=== PATIENT | male | born 1955 | race Caucasian/White ===

== ENCOUNTER 2018-10-01 16:30 | Inpatient (IN) | payer OTHER ==
[2018-10-01 18:17] LABS: Absolute Lymphocytes (CBC) 2.3 K/uL (0.7-4.9); Absolute Monocytes 0.8 K/uL (0.1-1.3); Absolute Neutrophil 6.7 K/uL (1.8-8.0); Basophils % 0.7 % (0-1.3); Eosinophils % 2.2 % (0-4.4); Hematocrit 53.3 % (39.6-49.0); Lymphocytes % 23.1 % (15.3-44.8); MPV 8.9 fL (7.6-11.3); Monocytes % 7.5 % (3.3-12.3); RBC Red Blood Cell Count 5.61 M/uL (4.33-5.43)
--- NOTE | 2018-10-01 18:47 | RAD REPORT ---
EXAM DESCRIPTION: RAD - Chest Single View - 10/01/2018 6:18 pm CLINICAL HISTORY: CHEST PAIN Chest pain. COMPARISON: Chest Pa And Lat (2 Views) dated 08/03/2017; Chest Pa And Lat (2 Views) dated 10/23/2016; Chest Pa And Lat (2 Views) dated 09/16/2016; Chest Single View dated 08/31/2016 FINDINGS: Portable technique limits examination quality. The lungs are grossly clear. The heart is normal in size. No displaced fractures. IMPRESSION: No acute intrathoracic process suspected.
[2018-10-01 18:48] LABS: Albumin 3.4 g/dL (3.4-5.0); Bilirubin Direct 0.2 mg/dL (0-0.2); Bilirubin Total 0.4 mg/dL (0.2-1.0); Potassium 3.8 mmol/L (3.5-5.1); Protein, Total 7.5 g/dL (6.4-8.2)
[2018-10-01 18:51] LABS: Troponin (Emerg Dept Use Only) 1.11 ng/mL (0.0-0.045)
[2018-10-01] MEDS ORDERED: ASPIRIN 81 MG CHEWABLE TABLET ONE (19:21)
[2018-10-01] MEDS ORDERED: NITROGLYCERIN 0.4 MG/TAB SL ONE (19:22)
[2018-10-01] MEDS ORDERED: ENOXAPARIN 60 MG/0.6 ML SQ ONE (19:36)
[2018-10-01] MEDS ORDERED: ENOXAPARIN 100 MG/ML SYR SQ ONE (19:36)
[2018-10-01] MEDS ORDERED: METOPROLOL TARTRATE 5 MG/5 ML INJ IV ONE (19:37)
--- NOTE | 2018-10-01 19:58 | ER ---
Nurse's Notes [facility] Name: Larry Seth Jr Age: 63 yrs Sex: Male : 1955 Arrival Date: 10/01/2018 Time: 16:32 Bed 25 Private MD: Misael Charlton B Diagnosis: Non-ST elevation (NSTEMI) myocardial infarction Presentation: 10/01 16:40 Presenting complaint: Patient states: my BP is getting high, today, it is 182/103; now, hj my chest started hurting yesterday and today its worse today; pain radiates to the L arm; reports SOB; denies N/V;. Transition of care: patient was not received from another setting of care. Onset of symptoms was October 01, 2018. Risk Assessment: Do you want to hurt yourself or someone else? Patient reports no desire to harm self or others. Initial Sepsis Screen: Does the patient meet any 2 criteria? No. Patient's initial sepsis screen is negative. Does the patient have a suspected source of infection? No. Patient's initial sepsis screen is negative. Care prior to arrival: None. 16:40 Method Of Arrival: Ambulatory 16:40 Acuity: JUAN CARLOS 3 hj Triage Assessment: 16:46 General: Appears in no apparent distress. uncomfortable, Behavior is calm, cooperative, hj appropriate for age. Pain: Complains of pain in chest Pain radiates to left arm. Cardiovascular: Capillary refill < 3 seconds Patient's skin is warm and dry. Historical: - Allergies: 16:46 Aleve; hj 16:46 Ceftin; hj 16:46 Codeine; hj 16:46 HYDROCODONE; 16:46 Tramadol HCl; hj - Home Meds: 16:46 Novolin R Sub-Q daily [Active]; Tresiba FlexTouch U-100 100 unit/mL (3 mL) subcutaneous hj inpn [Active]; amlodipine 5 mg tab 1 tab once daily [Active]; duloxetine 60 mg oral cpDR 1 cap once daily [Active]; Bystolic 10 mg oral tab 1 tab twice a day [Active]; furosemide 20 mg Oral tab 1 tab T//S [Active]; Vascepa 1 gram oral cap 2 caps 2 times per day [Active]; aspirin 81 mg Oral TbEC 1 tab once daily [Active]; vitamin T54-chdie acid 500-400 mcg oral tab [Active]; amitriptyline 25 mg Oral tab 1 tab once daily [Active]; montelukast 10 mg oral tab 1 tab once daily [Active]; isosorbide mononitrate 30 mg Oral Tb24 1 tab once daily [Active]; - PMHx: 16:46 Chronic pain; COPD; Diabetes - IDDM; GERD; Hypertension; restless leg syndrome; hj - PSHx: 16:46 BACK SURG; Cholecystectomy; Hernia repair; hj - Immunization history:: Adult Immunizations up to date. - Social history:: Smoking status: Patient/guardian denies using tobacco, Patient/guardian denies using alcohol. - Ebola Screening: : Patient negative for fever greater than or equal to 101.5 degrees Fahrenheit, and additional compatible Ebola Virus Disease symptoms Patient denies exposure to infectious person Patient denies travel to an Ebola-affected area in the 21 days before illness onset. Screenin:47 Abuse screen: Denies threats or abuse. Denies injuries from another. Nutritional hj screening: No deficits noted. Tuberculosis screening: No symptoms or risk factors identified. Fall Risk None identified. Assessment: 16:47 Pain: Pain began 1 day ago. hj 17:49 General: Appears in no apparent distress. Behavior is calm, cooperative, appropriate tw2 for age. Pain: Complains of pain in chest. Pain: Complains of pain in chest Pain radiates to left arm. Neuro: Level of Consciousness is awake, alert, obeys commands, Oriented to person, place, time, situation. Cardiovascular: Edema is 2+ to right forearm, right wrist, right hand, left midcalf, left ankle, left forearm, left wrist, left hand, right midcalf and right ankle. Cardiovascular: Reports chest pain, Heart tones S1 S2 Patient's skin is warm and dry. Respiratory: Airway is patent Respiratory effort is even, unlabored, Respiratory pattern is regular, symmetrical, Breath sounds are clear bilaterally. GI: Abdomen is round non-distended, obese, Bowel sounds present X 4 quads. : No signs and/or symptoms were reported regarding the genitourinary system. EENT: No signs and/or symptoms were reported regarding the EENT system. Derm: No signs and/or symptoms reported regarding the dermatologic system. Musculoskeletal: Range of motion: intact in all extremities. 18:34 Reassessment: Patient appears in no apparent distress at this time. No changes from tw2 previously documented assessment. Patient and/or family updated on plan of care and expected duration. Pain level reassessed. Patient is alert, oriented x 3, equal unlabored respirations, skin warm/dry/pink. 19:06 General: Appears in no apparent distress. Behavior is calm, cooperative, appropriate ea for age. Pain: Complains of pain in left arm and chest. Neuro: Level of Consciousness is awake, alert, obeys commands, Oriented to person, place, time, situation. Cardiovascular: Heart tones S1 S2 Patient's skin is warm and dry. Edema. Respiratory: Airway is patent Respiratory effort is even, unlabored, Respiratory pattern is regular, symmetrical, Breath sounds are clear bilaterally. GI: Abdomen is obese, Bowel sounds present X 4 quads. Derm: Skin is pink, warm \T\ dry. Musculoskeletal: Circulation, motion, and sensation intact. 20:33 Reassessment: Patient and/or family updated on plan of care and expected duration. Pain ea level reassessed. Patient is alert, oriented x 3, equal unlabored respirations, skin warm/dry/pink. Awaiting on physician orders and room assignment Patient denies pain at this time. 21:31 Reassessment: Patient and/or family updated on plan of care and expected duration. Pain ea level reassessed. Patient is alert, oriented x 3, equal unlabored respirations, skin warm/dry/pink. Report called to receiving nurse on fourth. Vital Signs: 16:47 BP 178 / 91; Pulse 70; Resp 18; Temp 98.4(O); Pulse Ox 99% on R/A; Weight 155.58 kg; hj Height 6 ft. 3 in. (190.50 cm); Pain 6/10; 17:49 BP 175 / 101; Pulse 78; Resp 22; Pulse Ox 100% on R/A; tw2 18:42 BP 177 / 91; Pulse 70; Resp 17; Pulse Ox 99% on R/A; tw2 19:00 BP 179 / 107; Pulse 68; Resp 19; Pulse Ox 99% on R/A; ea 19:30 BP 178 / 87; Pulse 69; Resp 18; Pulse Ox 98% on R/A; ea 19:41 BP 173 / 100; Pulse 62; Resp 18; Pulse Ox 98% on R/A; ea 20:01 Pain 0/10; ea 20:15 BP 160 / 88; Pulse 63; Resp 18; Pulse Ox 98% on R/A; ea 21:00 BP 170 / 90; Pulse 60; Resp 18; Pulse Ox 98% on R/A; ea 16:47 Body Mass Index 42.87 (155.58 kg, 190.50 cm) hj ED Course: 16:32 Patient arrived in ED. rg4 16:32 Misael Charlton MD is Private Physician. rg4 16:42 Triage completed. hj 16:47 Arm band placed on right wrist. hj 16:47 Patient has correct armband on for positive identification. Placed in gown. Bed in low hj position. Call light in reach. Side rails up X 1. Adult w/ patient. residential recycle driver on. Pulse ox on. NIBP on. 16:47 Patient maintains SpO2 saturation greater than 95% on room air. hj 16:48 EKG done, by charge histotechnologist. reviewed by Jose Nogueira MD. sm3 17:31 Roshan Mehta NP is PHCP. pm1 17:31 Jose Nogueira MD is Attending Physician. pm1 17:48 Caroline Fairchild RN is Primary Nurse. tw2 17:48 Missed attempt(s): 20 gauge in right antecubital area. Bleeding controlled, band aid tw2 applied, catheter tip intact. 18:16 XRAY Chest (1 view) In Process Unspecified. EDMS 18:58 Report given to CARI Michael. tw2 18:59 Primary Nurse role handed off by Caroline Fairchild RN tw2 19:05 Fernanda Mattson RN is Primary Nurse. ea 19:56 Rosalba Calderon MD is Hospitalizing Provider. pm1 21:13 No provider procedures requiring assistance completed. Patient admitted, IV remains in ea place. Administered Medications: 19:23 Drug: Nitroglycerin 0.4 mg Route: Sublingual; ea 19:23 Drug: Aspirin 325 mg Route: PO; ea 20:19 Follow up: Response: No adverse reaction ea 19:30 Drug: Nitroglycerin 0.4 mg Route: Sublingual; ea 20:19 Follow up: Response: No adverse reaction; Pain is decreased ea 19:46 Drug: Lovenox 1 mg/kg Route: Sub-Q; Site: right lower abdomen; ea 20:19 Follow up: Response: No adverse reaction ea 19:46 Drug: Lopressor 5 mg Route: IVP; Site: left antecubital; ea 20:01 Follow up: Pain 0/10 Adult; Response: No adverse reaction; Pain is decreased ea 20:28 Drug: Tylenol 500 mg Route: PO; ea 21:34 Follow up: Response: No adverse reaction; Pain is decreased ea Outcome: 19:56 Decision to Hospitalize by Provider. pm1 20:00 Instructed on the need for admit. ea 21:30 Admitted to Med/surg accompanied by tech, room 406, Report called to Receiving nurse ea on fourth floor 21:30 Condition: stable 21:35 Patient left the ED. ea Signatures: Dispatcher [employer] EDMS Ja Fischer RN RN Roshan Jensen, BUSINESS PLANNING MANAGER BUSINESS PLANNING MANAGER pm1 Caroline Fairchild RN RN tw2 Mignon Beckford rg4 Fernanda Mattson RN RN Kanchan Wynne sm3 Corrections: (The following items were deleted from the chart) 16:50 16:47 Pulse 70bpm; Resp 18bpm; Pulse Ox 99% RA; Temp 98.4F Oral; 155.58 kg; Height 6 hj ft. 3 in.; BMI: 42.8; Pain 6/10; hj
--- NOTE | 2018-10-01 19:58 | EDPHYS ---
Physician Documentation [facility] Name: Larry Seth Jr Age: 63 yrs Sex: Male : 1955 Arrival Date: 10/01/2018 Time: 16:32 Bed 25 Private MD: Misael Charlton B ED Physician Jose Nogueira HPI: 10/01 19:00 This 63 yrs old Male presents to ER via Ambulatory with complaints of Chest pm1 Pain, High Blood Pressure. 19:00 The patient or guardian reports chest pain that is located primarily in the mid-sternal pm1 area. Onset: yesterday, at 15:00. The pain radiates to the left arm. Associated signs and symptoms: Pertinent positives: shortness of breath, Pertinent negatives: abdominal pain, cough, diaphoresis, dizziness, headache, nausea, near syncope, palpitations, vomiting. The chest pain is described as a pressure. Duration: The patient or guardian reports a single episode, that is still ongoing. Modifying factors: The symptoms are alleviated by nothing. the symptoms are aggravated by emotionally stressful situations, of mother and aunt in the past two weeks. Severity of pain: in the emergency department the pain is a 7 / 10. The patient has not experienced similar symptoms in the past. The patient has been recently seen by a physician: Dr. Chou for HTN and chest pain. Chest relieved with aspirin when he went to see Effie. Blood pressure was elevated and was given prescription for Norvasc. has had recent blood pressure medication changes. On 08/24 Lasix dosage decreased by nephrology. Has had pedal edema since decreased Lasix dosage from daily to every other day. Historical: - Allergies: 16:46 Aleve; 16:46 Ceftin; 16:46 Codeine; hj 16:46 HYDROCODONE; hj 16:46 Tramadol HCl; hj - Home Meds: 16:46 Novolin R Sub-Q daily [Active]; Tresiba FlexTouch U-100 100 unit/mL (3 mL) subcutaneous hj inpn [Active]; amlodipine 5 mg tab 1 tab once daily [Active]; duloxetine 60 mg oral cpDR 1 cap once daily [Active]; Bystolic 10 mg oral tab 1 tab twice a day [Active]; furosemide 20 mg Oral tab 1 tab // [Active]; Vascepa 1 gram oral cap 2 caps 2 times per day [Active]; aspirin 81 mg Oral TbEC 1 tab once daily [Active]; vitamin J34-pjhfy acid 500-400 mcg oral tab [Active]; amitriptyline 25 mg Oral tab 1 tab once daily [Active]; montelukast 10 mg oral tab 1 tab once daily [Active]; isosorbide mononitrate 30 mg Oral Tb24 1 tab once daily [Active]; - PMHx: 16:46 Chronic pain; COPD; Diabetes - IDDM; GERD; Hypertension; restless leg syndrome; hj - PSHx: 16:46 BACK SURG; Cholecystectomy; Hernia repair; hj - Immunization history:: Adult Immunizations up to date. - Social history:: Smoking status: Patient/guardian denies using tobacco, Patient/guardian denies using alcohol. - Ebola Screening: : Patient negative for fever greater than or equal to 101.5 degrees Fahrenheit, and additional compatible Ebola Virus Disease symptoms Patient denies exposure to infectious person Patient denies travel to an Ebola-affected area in the 21 days before illness onset. ROS: 19:00 Constitutional: Negative for fever, chills, and weight loss, Eyes: Negative for injury, pm1 pain, redness, and discharge, ENT: Negative for injury, pain, and discharge, Neck: Negative for injury, pain, and swelling. 19:00 Abdomen/GI: Negative for abdominal pain, nausea, vomiting, diarrhea, and constipation, Back: Negative for injury and pain, : Negative for injury, bleeding, discharge, and swelling, MS/Extremity: Negative for injury and deformity, Skin: Negative for injury, rash, and discoloration, Neuro: Negative for headache, weakness, numbness, tingling, and seizure. 19:00 Cardiovascular: Positive for chest pain, edema, Negative for orthopnea, palpitations. 19:00 Respiratory: Positive for shortness of breath, Negative for cough, sputum production, wheezing. Exam: 19:00 Constitutional: This is a well developed, well nourished patient who is awake, alert, pm1 and in no acute distress. Head/Face: Normocephalic, atraumatic. Eyes: Pupils equal round and reactive to light, extra-ocular motions intact. Lids and lashes normal. Conjunctiva and sclera are non-icteric and not injected. Cornea within normal limits. Periorbital areas with no swelling, redness, or edema. ENT: Nares patent. No nasal discharge, no septal abnormalities noted. Tympanic membranes are normal and external auditory canals are clear. Oropharynx with no redness, swelling, or masses, exudates, or evidence of obstruction, uvula midline. Mucous membranes moist. Neck: Trachea midline, no thyromegaly or masses palpated, and no cervical lymphadenopathy. Supple, full range of motion without nuchal rigidity, or vertebral point tenderness. No Meningismus. Chest/axilla: Normal chest wall appearance and motion. Nontender with no deformity. No lesions are appreciated. 19:00 Respiratory: Lungs have equal breath sounds bilaterally, clear to auscultation and percussion. No rales, rhonchi or wheezes noted. No increased work of breathing, no retractions or nasal flaring. Abdomen/GI: Soft, non-tender, with normal bowel sounds. No distension or tympany. No guarding or rebound. No evidence of tenderness throughout. Back: No spinal tenderness. No costovertebral tenderness. Full range of motion. Skin: Warm, dry with normal turgor. Normal color with no rashes, no lesions, and no evidence of cellulitis. MS/ Extremity: Pulses equal, no cyanosis. Neurovascular intact. Full, normal range of motion. 19:00 Cardiovascular: Rate: normal, Rhythm: regular, Pulses: no pulse deficits are appreciated, Heart sounds: normal, Edema: pedal edema, that is mild, 1+. 19:00 NSR 75. No stemi 19:00 Neuro: Orientation: is normal, Motor: is normal, moves all fours, Sensation: is normal, no obvious gross deficits. Vital Signs: 16:47 BP 178 / 91; Pulse 70; Resp 18; Temp 98.4(O); Pulse Ox 99% on R/A; Weight 155.58 kg; hj Height 6 ft. 3 in. (190.50 cm); Pain 6/10; 17:49 BP 175 / 101; Pulse 78; Resp 22; Pulse Ox 100% on R/A; tw2 18:42 BP 177 / 91; Pulse 70; Resp 17; Pulse Ox 99% on R/A; tw2 19:00 BP 179 / 107; Pulse 68; Resp 19; Pulse Ox 99% on R/A; ea 19:30 BP 178 / 87; Pulse 69; Resp 18; Pulse Ox 98% on R/A; ea 19:41 BP 173 / 100; Pulse 62; Resp 18; Pulse Ox 98% on R/A; ea 20:01 Pain 0/10; ea 20:15 BP 160 / 88; Pulse 63; Resp 18; Pulse Ox 98% on R/A; ea 21:00 BP 170 / 90; Pulse 60; Resp 18; Pulse Ox 98% on R/A; ea 16:47 Body Mass Index 42.87 (155.58 kg, 190.50 cm) MDM: 17:38 Patient medically screened. pm1 17:50 Data reviewed: vital signs. Data interpreted: Pulse oximetry: on room air is 100 %. pm1 Interpretation: normal. 19:38 ED course: Chest pressure/pain 0/10 after 2nd dose of nitro. pm1 19:55 Physician consultation: Rosalba Calderon MD was called at 19:56, was contacted at 19:56, pm1 regarding admission, patient's condition, and will see patient. 10/01 17:51 Order name: Basic Metabolic Panel pm1 10/01 17:51 Order name: CBC with Diff; Complete Time: 18:45 pm1 10/01 17:51 Order name: LFT's; Complete Time: 18:52 pm1 10/01 17:51 Order name: Magnesium; Complete Time: 18:52 pm1 10/01 17:51 Order name: NT PRO-BNP; Complete Time: 18:52 pm1 10/01 17:51 Order name: PT-INR; Complete Time: 18:45 pm1 10/01 17:51 Order name: Troponin (emerg Dept Use Only); Complete Time: 18:52 pm1 10/01 17:51 Order name: Basic Metabolic Panel; Complete Time: 18:52 EDMS 10/01 20:40 Order name: Basic Metabolic Panel EDMS 10/01 20:40 Order name: Basic Metabolic Panel EDMS 10/01 20:40 Order name: CBC with Automated Diff EDMS 10/01 20:40 Order name: CBC with Automated Diff EDMS 10/01 20:40 Order name: Lipid Profile EDMS 10/01 20:40 Order name: Lipid Profile EDMS 10/01 16:40 Order name: EKG; Complete Time: 16:40 hj 10/01 17:51 Order name: XRAY Chest (1 view); Complete Time: 18:48 pm1 10/01 17:51 Order name: Cardiac monitoring; Complete Time: 18:10 pm1 10/01 17:51 Order name: EKG - Nurse/Tech; Complete Time: 18:10 pm1 10/01 17:51 Order name: IV Saline Lock; Complete Time: 18:10 pm1 10/01 20:40 Order name: CONS Physician Consult [facility] 10/01 20:40 Order name: Heart Healthy [facility] 10/01 20:40 Order name: Echo with Doppler [facility] 10/01 20:40 Order name: Troponin I [facility] 10/01 20:40 Order name: Troponin I [facility] 10/01 20:40 Order name: Troponin I [facility] 10/01 17:51 Order name: Labs collected and sent; Complete Time: 18:10 pm1 10/01 17:51 Order name: O2 Per Protocol; Complete Time: 18:10 pm1 10/01 17:51 Order name: O2 Sat Monitoring; Complete Time: 18:10 pm1 Administered Medications: 19:23 Drug: Nitroglycerin 0.4 mg Route: Sublingual; ea 19:23 Drug: Aspirin 325 mg Route: PO; ea 20:19 Follow up: Response: No adverse reaction ea 19:30 Drug: Nitroglycerin 0.4 mg Route: Sublingual; ea 20:19 Follow up: Response: No adverse reaction; Pain is decreased ea 19:46 Drug: Lovenox 1 mg/kg Route: Sub-Q; Site: right lower abdomen; ea 20:19 Follow up: Response: No adverse reaction ea 19:46 Drug: Lopressor 5 mg Route: IVP; Site: left antecubital; ea 20:01 Follow up: Pain 0/10 Adult; Response: No adverse reaction; Pain is decreased ea 20:28 Drug: Tylenol 500 mg Route: PO; ea 21:34 Follow up: Response: No adverse reaction; Pain is decreased ea Disposition: 10/01/18 19:56 Hospitalization ordered by Rosalba Calderon for Inpatient Admission. Preliminary diagnosis is Non-ST elevation (NSTEMI) myocardial infarction. - Bed requested for Telemetry/MedSurg (Inpatient). - Status is Inpatient Admission. ea - Condition is Stable. - Problem is new. - Symptoms have improved. UTI on Admission? No Signatures: Dispatcher [employer] EDMS Ja Fischer RN RN Eboni Beckford RN RN Roshan Mehta, EVELYNE ASSEMBLER [employer] pm1 Fernanda Mattson RN RN ea Corrections: (The following items were deleted from the chart) 20:52 19:56 Hospitalization Ordered by Rosalba Calderon MD for Inpatient Admission. Preliminary cg diagnosis is Non-ST elevation (NSTEMI) myocardial infarction. Bed requested for Telemetry/MedSurg (Inpatient). Status is Inpatient Admission. Condition is Stable. Problem is new. Symptoms have improved. UTI on Admission? No. pm1 21:35 20:52 10/01/2018 19:56 Hospitalization Ordered by Rosalba Calderon MD for Inpatient ea Admission. Preliminary diagnosis is Non-ST elevation (NSTEMI) myocardial infarction. Bed requested for Telemetry/MedSurg (Inpatient). Status is Inpatient Admission. Condition is Stable. Problem is new. Symptoms have improved. UTI on Admission? No. cg
[2018-10-01] MEDS ORDERED: ACETAMINOPHEN 500 MG TAB PO PRN (20:28)
[2018-10-01] MEDS ORDERED: ACETAMINOPHEN 500 MG TAB ONE (20:35)
[2018-10-01] MEDS ORDERED: ATORVASTATIN 20 MG TAB PO SCH (21:00)
[2018-10-01 21:58] LABS: HDL Cholesterol 23 mg/dL (40-60); LDL Cholesterol, Calculated ND (<130)
[2018-10-01] MEDS ORDERED: METOPROLOL TAR 50 MG TAB PO SCH (22:00)
[2018-10-01 22:13] LABS: LDL, Direct 88 mg/dL (100-129)
[2018-10-01] MEDS ORDERED: GLUCAGON 1 MG/VIAL IM PRN (22:27)
[2018-10-01] MEDS ORDERED: D50W 25 GM/50 ML SYRINGE IV PRN (22:27)
[2018-10-01] MEDS ORDERED: INSULIN -REGULAR HUMAN 50 UNIT/0.5 ML ML SQ SCH (22:29)
[2018-10-02] MEDS ORDERED: NITROGLYCERIN 0.2 MG/HR (5 MG) PATCH TD SCH (02:00)
[2018-10-02 02:07] VITALS: BMI 42.8
[2018-10-02] MEDS ORDERED: GLUCAGON 1 MG/VIAL IM PRN ×2 (02:20→12:32)
[2018-10-02] MEDS ORDERED: D50W 25 GM/50 ML SYRINGE IV PRN ×2 (02:20→12:32)
[2018-10-02] MEDS ORDERED: NITROGLYCERIN 1 GM PKT TD ONE ×2 (02:36→02:37)
[2018-10-02] MEDS ORDERED: METOPROLOL TAR 25 MG TAB PO ONE (02:37)
[2018-10-02] MEDS ORDERED: NA CHLORIDE 0.9% 1,000 ML IV SCH ×2 (03:00→12:00)
[2018-10-02] MEDS: MORPHINE 4 MG/ML SYR IV PRN ×2 (03:08→14:35)
[2018-10-02] MEDS ORDERED: ONDANSETRON 4 MG/2 ML VIAL ONE (03:09)
[2018-10-02] MEDS ORDERED: NITROGLYCERIN 1 GM PKT TD SCH (06:00)
[2018-10-02 06:19] LABS: Absolute Lymphocytes (CBC) 2.4 K/uL (0.7-4.9); Absolute Monocytes 0.7 K/uL (0.1-1.3); Absolute Neutrophil 3.9 K/uL (1.8-8.0); Eosinophils % 3.9 % (0-4.4); Hematocrit 49.9 % (39.6-49.0); Lymphocytes % 32.9 % (15.3-44.8); Monocytes % 9.3 % (3.3-12.3); RBC Red Blood Cell Count 5.24 M/uL (4.33-5.43)
[2018-10-02] MEDS: NEBIVOLOL HCL 5 MG TAB PO SCH ×2 (06:38→17:23)
[2018-10-02 06:45] LABS: Potassium 4.2 mmol/L (3.5-5.1)
[2018-10-02] MEDS ORDERED: ENOXAPARIN 40 MG/0.4 ML SQ SCH (09:00)
[2018-10-02] MEDS ORDERED: ACETYLCYST 20% 800 MG/4 ML VIAL PO SCH (09:00)
[2018-10-02] MEDS ORDERED: FUROSEMIDE 20 MG TABLET PO SCH (09:00)
[2018-10-02] MEDS ORDERED: NEBIVOLOL HCL 5 MG TAB PO SCH (09:00)
[2018-10-02] MEDS: INSULIN GLARGINE 100 UNITS/ML SQ SCH (09:11)
[2018-10-02] MEDS: DULOXETINE 30 MG CAP PO SCH (09:11)
[2018-10-02] MEDS: ASPIRIN EC 81 MG TAB PO SCH (09:12)
[2018-10-02] MEDS: ISOSORBIDE MONO SR 30 MG TAB PO SCH (09:13)
--- NOTE | 2018-10-02 11:46 | P.PN ---
Subjective Date of Service: 10/02/18 Subjective: No new changes, No C/O voiced Patient seen and examined at bedside. and daughter at bedside. Chart reviewed and case discussed with nursing staff. Review of Systems 10-point ROS is otherwise unremarkable Physical Examination - Vital Signs Temperature: 97.5 F Blood Pressure: 171/88 Pulse: 59 Respirations: 20 Pulse Ox (%): 96 - Physical Exam General: Alert, In no apparent distress, Oriented x3 HEENT: Atraumatic, PERRLA, EOMI Neck: Supple, JVD not distended Respiratory: Clear to auscultation bilaterally, Normal air movement Cardiovascular: Regular rate/rhythm, Normal S1 S2 Gastrointestinal: Normal bowel sounds, No tenderness Musculoskeletal: No tenderness Integumentary: No rashes Neurological: Normal speech, Normal tone, Normal affect Lymphatics: No axilla or inguinal lymphadenopathy - Studies Laboratory Data (last 24 hrs) 10/01/18 18:10: PT 11.8, INR 1.00 10/01/18 18:10: WBC 10.1, Hgb 18.3 H, Hct 53.3 H, Plt Count 215 10/01/18 18:10: Sodium 141, Potassium 3.8, BUN 25 H, Creatinine 2.39 H, Glucose 128 H, Magnesium 2.0, Total Bilirubin 0.4, AST 51 H, ALT 76, Alkaline Phosphatase 101 Assessment And Plan - Current Problems (Diagnosis) (1) Chest pain Current Visit: Yes Status: Acute Qualifiers: Chest pain type: chest pain due to myocardial ischemia (2) Elevated troponin Current Visit: Yes Status: Acute (3) Non-ST elevated myocardial infarction Current Visit: Yes Status: Acute (4) Chronic back pain Current Visit: Yes Status: Chronic Qualifiers: Back pain location: thoracic back pain Back pain laterality: bilateral Qualified Code(s): M54.6 - Pain in thoracic spine; G89.29 - Other chronic pain (5) Sleep apnea treated with nocturnal BiPAP Current Visit: Yes Status: Chronic (6) Hypertension Current Visit: No Status: Chronic Qualifiers: Hypertension type: essential hypertension (7) Chronic kidney disease (CKD) Current Visit: Yes Status: Acute Qualifiers: Chronic kidney disease stage: stage 3 (moderate) Qualified Code(s): N18.3 - Chronic kidney disease, stage 3 (moderate) - Plan This is a 63-year-old male with: Chest pain Elevated troponins. Non ST elevation myocardial infarction Chest pain guidelines Oxygen as needed. Morphine for pain control. Nitro p.r.n. Cardiology consulted Essential Hypertension Continue home medications. Will adjust as needed Sleep apnea, treated with nocturnal BiPAP Stable. Will order BiPAP as needed at night. Chronic back pain Patient with history of multiple back surgeries, including neck/cervical surgeries. Stable at this time. Chronic kidney disease, stage III Patient's package maker is Dr. Salgado Creatinine seems to be at baseline. Will continue to monitor DVT prophylaxis: Per cardiology GI prophylaxis: None Diet: Heart healthy Disposition: Pending cardiac workup.
--- NOTE | 2018-10-02 13:54 | EKG ---
Test Date: 2018-10-01 Test Time: 23:19:29 Intensive Care Unit Nurse: RADHA MEASUREMENT RESULTS: Intervals: Rate: 62 [place]: 176 QRSD: 88 QT: 424 QTc: 430 [place]: P: 44 [place]: 176 QRS: 19 T: -2 INTERPRETIVE STATEMENTS: Normal sinus rhythm Normal ECG Compared to ECG 10/01/2018 16:41:37 No significant changes Electronically Signed On 10-02-18 13:53:44 OUTPATIENT SERVICES DIRECTOR by Lucho Little
--- NOTE | 2018-10-02 13:56 | EKG ---
Test Date: 2018-10-01 Test Time: 16:41:37 Platform Attendant: WON MEASUREMENT RESULTS: Intervals: Rate: 75 [place]: 164 QRSD: 90 QT: 378 QTc: 422 Given: P: 48 [place]: 164 QRS: 53 T: 3 INTERPRETIVE STATEMENTS: Normal sinus rhythm Normal ECG Compared to ECG 08/31/2016 20:09:49 No significant changes Electronically Signed On 10-02-18 13:53:58 SENIOR WINDOWS SYSTEMS ENGINEER by Lucho Little
--- NOTE | 2018-10-02 14:34 | P.CNS ---
Date of Consult: 10/02/18 Reason for Consult: CKD and reduce risk for contrast nephropathy Chief Complaint: Chest pain History of Present Illness: a 63 Y/o man with PMhx of DM for 13yrs, CKD III/IV, HTN , EDITA on BiPAP, OA and hx of asbestos exposure pt presented with Chest pain pain retrosternal radiating to the neck associated with nausea and SOB in Er trop 1.1 and trending up to 11 no diarrhea, vomiting, headache or palpitation Allergies cefuroxime [From Ceftin] Allergy (Verified 08/31/16 22:54) Itching/Hives/Rash latex Allergy (Verified 09/03/16 13:12) Hives naproxen [From Aleve] Allergy (Verified 08/31/16 22:54) Itching codeine Adverse Reaction (Verified 08/31/16 22:54) Nausea/Vomiting hydrocodone Adverse Reaction (Verified 08/31/16 22:54) Nausea/Vomiting tramadol Adverse Reaction (Verified 08/31/16 22:54) Nausea/Vomiting Home Medications: Amitriptyline [Elavil*] 25 mg PO BEDTIME 09/01/16 Aspirin [Arjun Chewable Aspirin] 81 mg PO DAILY 09/01/16 Duloxetine HCl 60 mg PO DAILY 09/01/16 Furosemide 20 mg PO SEECOM 09/01/16 Insulin Regular, Human [Humulin R U-500 Kwikpen] 30 unit SQ AC 09/01/16 Isosorbide Mononitrate [Isosorbide Mononitrate ER] 30 mg PO DAILY 09/01/16 Amlodipine [Norvasc*] 5 mg PO DAILY 10/02/18 Icosapent Ethyl [Vascepa] 2 cap PO BID 10/02/18 Insulin Degludec [Tresiba Flextouch U-100] 76 units SQ DAILY 10/02/18 Montelukast [Singulair*] 10 mg PO BEDTIME 10/02/18 Nebivolol HCl [Bystolic*] 10 mg PO BID 10/02/18 - Past Medical/Surgical History Diabetic: Yes -: Asbestosis -: IDDM -: GERD -: Restless leg -: Chronic pain neck, arms, shoulder, back -: HTN -: neuropathy -: chronic kidney disease -: Back sx x2 -: Joselyn -: Hernia repair - Social History Alcohol use: No CD- Drugs: No Caffeine use: Yes Place of Residence: Home Physical Examination Temp Pulse Resp BP Pulse Ox 97.0 F 65 18 157/80 H 94 10/02/18 12:00 10/02/18 12:00 10/02/18 12:00 10/02/18 12:00 10/02/18 12:00 General: Oriented x3 HEENT: Atraumatic Neck: Supple, Without JVD or thyroid abnormality Respiratory: Clear to auscultation bilaterally, Normal air movement Cardiovascular: No edema, Regular rate/rhythm, Normal S1 S2 Gastrointestinal: Normal bowel sounds Laboratory Data (last 24 hrs) 10/02/18 06:57: Troponin I 11.20 H* D 10/02/18 05:52: Sodium 140, Potassium 4.2, BUN 22 H, Creatinine 2.22 H, Glucose 208 H 10/02/18 05:52: WBC 7.4 D, Hgb 17.2, Hct 49.9 H, Plt Count 185 10/01/18 23:03: Troponin I 7.31 H* 10/01/18 21:20: Triglycerides 451 H, Cholesterol 170, LDL Cholesterol Direct 88 L, HDL Cholesterol 23 L, Cholesterol/HDL Ratio 7.39 10/01/18 18:10: PT 11.8, INR 1.00 10/01/18 18:10: WBC 10.1, Hgb 18.3 H, Hct 53.3 H, Plt Count 215 10/01/18 18:10: Sodium 141, Potassium 3.8, BUN 25 H, Creatinine 2.39 H, Glucose 128 H, Magnesium 2.0, Total Bilirubin 0.4, AST 51 H, ALT 76, Alkaline Phosphatase 101 - Problems (1) Chest pain Current Visit: Yes Status: Acute Qualifiers: Chest pain type: chest pain due to myocardial ischemia (2) Chronic kidney disease (CKD) Current Visit: Yes Status: Chronic Qualifiers: Chronic kidney disease stage: stage 3 (moderate) Qualified Code(s): N18.3 - Chronic kidney disease, stage 3 (moderate) (3) Non-ST elevated myocardial infarction Current Visit: Yes Status: Acute (4) Hypertension Current Visit: No Status: Chronic Qualifiers: Hypertension type: essential hypertension Conclusions/Impression: a 63 Y/o man with PMhx of DM for 13yrs, CKD III/IV, HTN , EDITA on BiPAP, OA and hx of asbestos exposure pt presented with Chest pain pain retrosternal radiating to the neck associated with nausea and SOB in Er trop 1.1 and trending up to 11 no diarrhea, vomiting, headache or palpitation pt was on 20mg lasix Qother day, stated wt changed from 321 in Jul to 343 recently? ,no signs of fluid overload CKD III/IV proteinuric Cr stable US in 07/2018 : echogenic kidney renal diet renal dose meds NSTEMI Plan for cardiac cath on Thursday pt is at moderate-high risk for contrast induced nephropathy will recommend low dose , hypoosmolar contrast use will start hydration 24hrs before -24hrs after the procedure mucomyst 1200mg bid 24hrs before -24hrs after the procedure 80mg of lipitor at night before the procedure will hold lasix DM as per primary HTN resume home meds HLD on statin EDITA on BiPAP
[2018-10-02] MEDS: ENOXAPARIN 80 MG/0.8 ML SQ SCH (16:29)
[2018-10-02] MEDS ORDERED: INSULIN REGULAR HUMAN 30 UNIT SQ SCH (16:30)
[2018-10-02] MEDS: INSULIN -REGULAR HUMAN 50 UNIT/0.5 ML ML SQ SCH ×2 (16:30→21:00)
--- NOTE | 2018-10-02 19:12 | P.HP ---
Certification for Inpatient Patient admitted to: Inpatient With expected LOS: >2 Midnights Patient will require the following post-hospital care: None Practitioner: I am a practitioner with admitting privileges, knowledge of patient current condition, hospital course, and medical plan of care. Services: Services provided to patient in accordance with Admission requirements found in Title 42 Section 412.3 of the Code of Federal Regulations Patient History Date of Service: 10/01/18 Reason for admission: Chest pain History of Present Illness: Patient is a 63-year-old gentleman who came into the hospital with chest discomfort. Patient states that the chest discomfort started yesterday. Patient states that initially he had elevated blood pressure. He went to his primary care provider. He was told to talk to the eligibility supervisor. He was started on amlodipine. He picked up the amlodipine into the dose night. Thursday morning he started having chest pain when he awoke. The chest pain was not improving. 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 His chest pain continued through all this. He also was having issues with his septic tank because of all the rain. While working on the septic tank his chest pain became worse. His was not at home but when she got home she took his blood pressure and was still elevated. She made him come to the hospital. In the emergency room his workup revealed elevated troponin. He was admitted to the hospital for non ST elevation myocardial infarction. Patient also has a history of chronic low back pain. He has been on disability. He has had multiple discs that her herniated. He has had lower back surgery as well. He does not take a lot of pain medication. He tends to live in pain chronically. He had a stress test done 10 years ago which he does not remember showing any abnormality. Allergies cefuroxime [From Ceftin] Allergy (Verified 08/31/16 22:54) Itching/Hives/Rash latex Allergy (Verified 09/03/16 13:12) Hives naproxen [From Aleve] Allergy (Verified 08/31/16 22:54) Itching codeine Adverse Reaction (Verified 08/31/16 22:54) Nausea/Vomiting hydrocodone Adverse Reaction (Verified 08/31/16 22:54) Nausea/Vomiting tramadol Adverse Reaction (Verified 08/31/16 22:54) Nausea/Vomiting Home Medications: Amitriptyline [Elavil*] 25 mg PO BEDTIME 09/01/16 Aspirin [Arjun Chewable Aspirin] 81 mg PO DAILY 09/01/16 Duloxetine HCl 60 mg PO DAILY 09/01/16 Furosemide 20 mg PO SEECOM 09/01/16 Insulin Regular, Human [Humulin R U-500 Kwikpen] 30 unit SQ AC 09/01/16 Isosorbide Mononitrate [Isosorbide Mononitrate ER] 30 mg PO DAILY 09/01/16 Amlodipine [Norvasc*] 5 mg PO DAILY 10/02/18 Icosapent Ethyl [Vascepa] 2 cap PO BID 10/02/18 Insulin Degludec [Tresiba Flextouch U-100] 76 units SQ DAILY 10/02/18 Montelukast [Singulair*] 10 mg PO BEDTIME 10/02/18 Nebivolol HCl [Bystolic*] 10 mg PO BID 10/02/18 - Past Medical/Surgical History Has patient received pneumonia vaccine in the past: Yes Diabetic: Yes -: Asbestosis -: IDDM -: GERD -: Restless leg -: Chronic pain neck, arms, shoulder, back -: HTN -: neuropathy -: chronic kidney disease -: Back sx x2 -: Joselyn -: Hernia repair - Social History Alcohol use: No CD- Drugs: No Caffeine use: Yes Place of Residence: Home Review of Systems 10-point ROS is otherwise unremarkable Physical Examination - Vital Signs Temperature: 97.7 F Blood Pressure: 170/89 Pulse: 62 Respirations: 18 Pulse Ox (%): 97 - Physical Exam General: Alert, In no apparent distress, Oriented x3 HEENT: Atraumatic, PERRLA, Mucous membr. moist/pink, EOMI, Sclerae nonicteric Neck: Supple, 2+ carotid pulse no bruit, No LAD, Without JVD or thyroid abnormality Respiratory: Clear to auscultation bilaterally, Normal air movement Cardiovascular: Regular rate/rhythm, Normal S1 S2 Gastrointestinal: Normal bowel sounds, Soft and benign, Non-distended, No tenderness Musculoskeletal: No clubbing, No swelling, No tenderness Integumentary: No rashes Neurological: Normal gait, Normal speech, Normal strength at 5/5 x4 extr, Normal tone, Sensation intact, Cranial nerves 3-12 intact, Normal affect Lymphatics: No axilla or inguinal lymphadenopathy - Studies Laboratory Data (last 24 hrs) 10/02/18 06:57: Troponin I 11.20 H* D 10/02/18 05:52: Sodium 140, Potassium 4.2, BUN 22 H, Creatinine 2.22 H, Glucose 208 H 10/02/18 05:52: WBC 7.4 D, Hgb 17.2, Hct 49.9 H, Plt Count 185 10/01/18 23:03: Troponin I 7.31 H* 10/01/18 21:20: Triglycerides 451 H, Cholesterol 170, LDL Cholesterol Direct 88 L, HDL Cholesterol 23 L, Cholesterol/HDL Ratio 7.39 Assessment & Plan - Problems (Diagnosis) (1) Chest pain Current Visit: Yes Status: Acute Qualifiers: Chest pain type: chest pain due to myocardial ischemia (2) Non-ST elevated myocardial infarction Current Visit: Yes Status: Acute (3) Chronic kidney disease (CKD) Current Visit: Yes Status: Chronic Qualifiers: Chronic kidney disease stage: stage 3 (moderate) Qualified Code(s): N18.3 - Chronic kidney disease, stage 3 (moderate) (4) SOB (shortness of breath) Onset Date: 09/01/16 Current Visit: No Status: Acute (5) Hypertension Current Visit: No Status: Chronic Qualifiers: Hypertension type: essential hypertension - Plan 1. Serial troponins and EKG 2. Cardiology consultation 3. Echocardiogram and further test pending cardiology evaluation 4. Anti-platelet therapy, anti coagulation, beta-liliam, statin, and O2 as needed 5. IV morphine for pain 6. Nitro p.r.n. Discharge Plan: Home Plan to discharge in: 48 Hours - Advance Directives Does patient have a Living Will: Yes Does patient have a Durable POA for Healthcare: Yes - Code Status/Comfort Care Code Status Assessed: No Code Status: Full Code Critical Care: No Time Spent Managing PTS Care (In Minutes): 60
[2018-10-02] MEDS: MONTELUKAST 10 MG TAB PO SCH (21:24)
[2018-10-02] MEDS: AMITRIPTYLINE 25 MG TAB PO SCH (21:24)
[2018-10-02] MEDS ORDERED: HYDRALAZINE HCL 20 MG/ML VIAL IV ONE (23:34)
[2018-10-03] MEDS: NEBIVOLOL HCL 5 MG TAB PO SCH ×2 (05:20→17:16)
[2018-10-03 05:24] LABS: Urine Appearance CLEAR; Urine Bilirubin NEGATIVE (NEG); Urine Blood NEGATIVE (NEG); Urine Color YELLOW; Urine Glucose 1+ (NEG); Urine Protein 3+ (NEG); Urine Specific Gravity 1.015 (1.005-1.030); Urine Urobilinogen 0.2 mg/dL (0.2-1.0)
[2018-10-03 05:35] LABS: Urine Microscopic Reflex ORDER UMIC
[2018-10-03 06:18] LABS: Urine Bacteria <20 /HPF (NONE SEEN); Urine Culture Reflex Order NOT NEEDED; Urine RBC <5 /HPF (NONE SEEN)
[2018-10-03] MEDS: INSULIN -REGULAR HUMAN 50 UNIT/0.5 ML ML SQ SCH ×4 (07:30→21:00)
[2018-10-03 07:49] LABS: Potassium 3.9 mmol/L (3.5-5.1)
[2018-10-03] MEDS: DULOXETINE 30 MG CAP PO SCH (08:34)
[2018-10-03] MEDS: NA CHLORIDE 0.9% 1,000 ML IV SCH ×2 (08:34→22:20)
[2018-10-03] MEDS: ISOSORBIDE MONO SR 30 MG TAB PO SCH (08:35)
[2018-10-03] MEDS: ACETYLCYST 20% 800 MG/4 ML VIAL PO SCH ×2 (08:36→21:01)
[2018-10-03] MEDS: INSULIN GLARGINE 100 UNITS/ML SQ SCH (08:36)
[2018-10-03] MEDS: ASPIRIN EC 81 MG TAB PO SCH (08:42)
[2018-10-03] MEDS ORDERED: INSULIN DEGLUDEC 76 UNIT SQ SCH (09:00)
--- NOTE | 2018-10-03 13:20 | P.PN ---
Subjective Date of Service: 10/03/18 Chief Complaint: Chest pain Subjective: Improving Cr improving plan for cardiac cath tomorrow Start IVF Lipitor 80mg tonight will monitor RFT Physical Examination - Vital Signs Temperature: 97.6 F Blood Pressure: 145/76 Pulse: 67 Respirations: 20 Pulse Ox (%): 95 - Physical Exam General: In no apparent distress, Oriented x3 HEENT: Atraumatic Neck: Supple, Without JVD or thyroid abnormality Respiratory: Clear to auscultation bilaterally, Normal air movement Cardiovascular: No edema, Regular rate/rhythm, Normal S1 S2, No gallops, No rubs , No murmurs Gastrointestinal: Normal bowel sounds, Soft and benign Assessment And Plan - Current Problems (Diagnosis) (1) Chest pain Current Visit: Yes Status: Acute Qualifiers: Chest pain type: chest pain due to myocardial ischemia (2) Chronic kidney disease (CKD) Current Visit: Yes Status: Chronic Qualifiers: Chronic kidney disease stage: stage 3 (moderate) Qualified Code(s): N18.3 - Chronic kidney disease, stage 3 (moderate) (3) Non-ST elevated myocardial infarction Current Visit: Yes Status: Acute (4) Hypertension Current Visit: No Status: Chronic Qualifiers: Hypertension type: essential hypertension - Plan a 63 Y/o man with PMhx of DM for 13yrs, CKD III/IV, HTN , EDITA on BiPAP, OA and hx of asbestos exposure pt presented with Chest pain pain retrosternal radiating to the neck associated with nausea and SOB in Er trop 1.1 and trending up to 11 no diarrhea, vomiting, headache or palpitation pt was on 20mg lasix Qother day, stated wt changed from 321 in Nov to 343 recently? ,no signs of fluid overload CKD III/IV proteinuric Cr improving US in 07/2018 : echogenic kidney renal diet renal dose meds NSTEMI Plan for cardiac cath on Thursday pt is at moderate-high risk for contrast induced nephropathy will recommend low dose , hypoosmolar contrast use will start hydration 24hrs before -24hrs after the procedure mucomyst 1200mg bid 24hrs before -24hrs after the procedure 80mg of lipitor at night before the procedure will hold lasix DM as per primary HTN resume home meds HLD on statin EDITA on BiPAP
[2018-10-03] MEDS: ENOXAPARIN 80 MG/0.8 ML SQ SCH (17:15)
--- NOTE | 2018-10-03 18:16 | P.PN ---
Subjective Date of Service: 10/03/18 Chief Complaint: Chest pain Subjective: No C/O voiced, Improving Patient seen and examined at bedside. and daughter at bedside. Chart reviewed and case discussed with nursing staff. Review of Systems 10-point ROS is otherwise unremarkable Physical Examination - Vital Signs Temperature: 98.3 F Blood Pressure: 145/86 Pulse: 63 Respirations: 18 Pulse Ox (%): 96 - Physical Exam General: Alert, In no apparent distress HEENT: Atraumatic, PERRLA, EOMI Neck: Supple, JVD not distended Respiratory: Clear to auscultation bilaterally, Normal air movement Cardiovascular: Regular rate/rhythm, Normal S1 S2 Gastrointestinal: Normal bowel sounds, No tenderness Musculoskeletal: No tenderness Integumentary: No rashes Neurological: Normal speech, Normal tone, Normal affect Lymphatics: No axilla or inguinal lymphadenopathy Assessment And Plan - Current Problems (Diagnosis) (1) Chest pain Current Visit: Yes Status: Acute Qualifiers: Chest pain type: chest pain due to myocardial ischemia (2) Elevated troponin Current Visit: Yes Status: Acute (3) Non-ST elevated myocardial infarction Current Visit: Yes Status: Acute (4) Chronic back pain Current Visit: Yes Status: Chronic Qualifiers: Back pain location: thoracic back pain Back pain laterality: bilateral Qualified Code(s): M54.6 - Pain in thoracic spine; G89.29 - Other chronic pain (5) Sleep apnea treated with nocturnal BiPAP Current Visit: Yes Status: Chronic (6) Hypertension Current Visit: No Status: Chronic Qualifiers: Hypertension type: essential hypertension (7) Chronic kidney disease (CKD) Current Visit: Yes Status: Chronic Qualifiers: Chronic kidney disease stage: stage 3 (moderate) Qualified Code(s): N18.3 - Chronic kidney disease, stage 3 (moderate) (8) Tobacco dependence Current Visit: Yes Status: Acute - Plan This is a 63-year-old male with: Chest pain Elevated troponins. Non ST elevation myocardial infarction Chest pain guidelines Oxygen as needed. Morphine for pain control. Nitro p.r.n. Cardiology consulted Essential Hypertension Continue home medications. Will adjust as needed Sleep apnea, treated with nocturnal BiPAP Stable. Will order BiPAP as needed at night. Chronic back pain Patient with history of multiple back surgeries, including neck/cervical surgeries. Stable at this time. Chronic kidney disease, stage III Patient's dispatcher radio is Dr. Naomi IVF and mucomyst to prep for pending heart cath tomorrow. Will continue to monitor kidney function. Tobacco dependence due to snuff counseled on cessation. DVT prophylaxis: Per cardiology GI prophylaxis: None Diet: Heart healthy Disposition: Pending cardiac cath on thursday morning.
[2018-10-03] MEDS: AMITRIPTYLINE 25 MG TAB PO SCH (21:01)
[2018-10-03] MEDS: ATORVASTATIN 80 MG TAB PO SCH (21:01)
[2018-10-03] MEDS: MONTELUKAST 10 MG TAB PO SCH (21:02)
--- NOTE | 2018-10-03 22:05 | PN ---
Date of Progress Note: 10/03/2018 Mr. Seth had come in approximately 48 hours ago with a subendocardial [place]. He has not had any ches t pain since admission. His creatinine was 2.4 and now is down to 1.93. He will be receiving fluid, Mucomyst. He needs a le ft heart catheterization done. The risk and the benefit of the procedure were discussed with him and he agreed to proceed. We will plan for that on 10/04/[address] Dodge. NUSRAT/SAURABH Voice ID: [id number] Report ID: [id number]
--- NOTE | 2018-10-03 23:49 | CON ---
Date of Consultation: 10/02/[address] Calderon's service on 10/01/2018. I saw the patient on 10/02/2018. Reason For Consultation: Non-ST elevation myocardial infarction. History Of Present Illness: Mr. Seth is a 63-year-old white male. He has a history of hypertensi on, COPD, diabetes, gastroesophageal reflux disease, restless legs syndrome, chronic pain. He came i n with chest pain that is substernal, severe, nonradiating, with some nausea and diaphoresis and shor tness of breath, but no vomiting. Apparently recently, he had a lot of stress because of the o f 2 of his family members. He was found to have a troponin of 7.31. His initial creatinine was 2.39 . He is followed by Dr. Ramirez for chronic renal insufficiency. He is pain free at this moment. His EKG was nonspecific. Chest x-ray was negative. He had a normal echocardiogram in 2017 and has h ad a normal heart catheterization approximately 10 years ago. He has also had a negative JOSE in 2017 . Since he has been in the hospital, he has been receiving aspirin and beta liliam as well as Loven ox and his insulin, Norvasc, Imdur, and Singulair. He has also been on hydration because of his jerome l function. Allergies: HE IS ALLERGIC TO LATEX, CEFUROXIME, NAPROSYN, CODEINE, AND TRAMADOL. Review of Systems: Negative. Social History: Positive for tobacco. Family History: Positive for heart disease. Medications: At home include Imdur, Singulair, Norvasc, aspirin, Lasix, , Bystolic, and in sulin. Physical Examination: Vital Signs: His blood pressure is 177/91. General: He was in no acute distress, but anxious. HEENT: Negative. Neck: Supple without any bruit, lymphadenopathy, JVD, or thyromegaly. Chest: Clear to auscultation and percussion. Cardiac: Revealed a regular rhythm and rate with an S4 gallop. Abdomen: Obese, but benign. Extremities: Revealed no clubbing, cyanosis, or edema. Neurological: He was intact. Skin: Dry and intact. Pulses were present distally bilaterally. Diagnostic Data: As stated earlier and also includes triglyceride of 451. Impression And Plan: 1.Non-ST elevation myocardial infarction. The patient has classic symptoms. EKG is nonspecific. C reatinine is 2.39, which is concerning. Nephrology is following him. We will hydrate him, give him Mucomyst. Hopefully, his creatinine would improve, but we will plan for a heart catheterization eliot y next week. 2.Hypertension, poorly controlled. We could certainly increase his Bystolic or Norvasc. 3.Chronic obstructive pulmonary disease and asbestosis, on Singulair. 4.Dyslipidemia. 5.Diabetes. 6.Chronic pain. 7.Restless legs syndrome. NB/MODL Voice ID: [id number] Report ID: [id number]
[2018-10-04] MEDS: NA CHLORIDE 0.9% 1,000 ML IV SCH ×3 (05:30→23:27)
[2018-10-04] MEDS: NEBIVOLOL HCL 5 MG TAB PO SCH ×2 (05:35→17:18)
[2018-10-04] MEDS: ASPIRIN EC 81 MG TAB PO SCH (05:35)
[2018-10-04] MEDS: ACETYLCYST 20% 800 MG/4 ML VIAL PO SCH ×2 (05:36→21:58)
[2018-10-04 07:09] LABS: Absolute Lymphocytes (CBC) 2.1 K/uL (0.7-4.9); Absolute Monocytes 0.4 K/uL (0.1-1.3); Absolute Neutrophil 3.3 K/uL (1.8-8.0); Basophils % 0.7 % (0-1.3); Eosinophils % 4.4 % (0-4.4); Hematocrit 50.4 % (39.6-49.0); Lymphocytes % 34.9 % (15.3-44.8); RBC Red Blood Cell Count 5.31 M/uL (4.33-5.43)
[2018-10-04] MEDS: INSULIN -REGULAR HUMAN 50 UNIT/0.5 ML ML SQ SCH ×4 (07:30→21:00)
[2018-10-04] MEDS: INSULIN GLARGINE 100 UNITS/ML SQ SCH (08:00)
[2018-10-04 08:57] LABS: Potassium 3.7 mmol/L (3.5-5.1)
[2018-10-04] MEDS: ISOSORBIDE MONO SR 30 MG TAB PO SCH (09:00)
[2018-10-04] MEDS ORDERED: FENTANYL CITR 100 MCG/2 ML ONE ×2 (09:13→11:03)
[2018-10-04] MEDS ORDERED: MIDAZOLAM HCL 2 MG/2 ML INJ ONE ×3 (09:13→10:47)
[2018-10-04] MEDS ORDERED: ATROPINE SULF 1 MG/10 ML SYR IV ONE (09:13)
[2018-10-04] MEDS ORDERED: NA CHLORIDE 0.9% 0 ML ONE (09:14)
[2018-10-04] MEDS ORDERED: HEPARIN 5000 UNIT/ML 1 ML VIAL ONE (10:08)
[2018-10-04] MEDS ORDERED: NITROGLYCERIN/D5W 25 MG/250 ML BTL IV ONE (10:09)
[2018-10-04] MEDS ORDERED: NITROGLYCERIN 100 MCG/ML SYR (for cath lab use only) IV ONE (10:09)
[2018-10-04] MEDS ORDERED: NICARDIPINE HCL 25 MG/10 ML IV ONE (10:09)
[2018-10-04] MEDS ORDERED: HYDRALAZINE HCL 20 MG/ML VIAL ONE ×3 (10:25→14:21)
[2018-10-04] MEDS ORDERED: NA CHLORIDE 0.9% 50 ML ONE ×2 (10:45→11:02)
[2018-10-04] MEDS ORDERED: PRASUGREL (EFFIENT) 10 MG TAB ONE (11:11)
[2018-10-04] MEDS ORDERED: HYDRALAZINE HCL 20 MG/ML VIAL IV PRN (14:16)
[2018-10-04] MEDS ORDERED: AMLODIPINE 10 MG TAB PO ONE (14:30)
[2018-10-04] MEDS ORDERED: NITROGLYCERIN 0.4 MG/TAB SL PRN (15:00)
[2018-10-04] MEDS ORDERED: ACETAMINOPHEN 325 MG TABLET PO PRN (15:00)
[2018-10-04] MEDS: DULOXETINE 30 MG CAP PO SCH (15:34)
--- NOTE | 2018-10-04 16:11 | ECHO ---
HEIGHT: 6 ft 3 in WEIGHT: 343 lb 0 oz DATE OF STUDY: 10/04/[address]: Rosalba Calderon MD 2-DIMENSIONAL: YES M.MODE: YES DOPPLER: YES COLOR FLOW: YES TDS: PORTABLE: DEFINITY: BUBBLE STUDY: DIAGNOSIS: CHEST PAIN CARDIAC HISTORY: CATHERIZATION: YES SURGERY: STENT PROSTHETIC VALVE: NO PACEMAKER: NO MEASUREMENTS (cm) DIASTOLIC (NORMALS) SYSTOLIC (NORMALS) IVSd 1.3(0.6-1.2) LA Diam 4.4 (1.9-4.0) LVEF 54% LVIDd 4.6 (3.5-5.7) LVIDs 3.3 (2.0-3.5) %FS 28% LVPWd 1.4 (0.6-1.2) Ao Diam 3.4 (2.0-3.7) 2 DIMENSIONAL ASSESSMENT: RIGHT ATRIUM: NORMAL LEFT ATRIUM: DILATED RIGHT VENTRICLE: NORMAL LEFT VENTRICLE: LEFT VENTRICULAR HYPERTROPHY TRICUSPID VALVE: NORMAL MITRAL VALVE: NORMAL PULMONIC VALVE: NORMAL AORTIC VALVE: NORMAL PERICARDIAL EFFUSION: NONE AORTIC ROOT: NORMAL LEFT VENTRICULAR WALL MOTION: NORMAL DOPPLER/COLOR FLOW: NORMAL COMMENTS: NORMAL LEFT VENTRICULAR EJECTION FRACTION. LEFT VENTRICULAR HYPERTROPHY. DILATED LEFT ATRIUM. TECHNOLOGIST: BRETT COWAN
--- NOTE | 2018-10-04 18:12 | P.PN ---
Subjective Date of Service: 10/04/18 Chief Complaint: Chest pain Patient seen and examined at bedside. and daughter at bedside. Chart reviewed and case discussed with nursing staff. Review of Systems 10-point ROS is otherwise unremarkable Physical Examination - Vital Signs Temperature: 98.3 F Blood Pressure: 177/86 Pulse: 73 Respirations: 18 Pulse Ox (%): 98 - Physical Exam General: Alert, In no apparent distress, Oriented x3 HEENT: Atraumatic, PERRLA, EOMI Neck: Supple, JVD not distended Respiratory: Clear to auscultation bilaterally, Normal air movement Cardiovascular: Regular rate/rhythm, Normal S1 S2 Gastrointestinal: Normal bowel sounds, No tenderness Musculoskeletal: No tenderness Integumentary: No rashes Neurological: Normal speech, Normal tone, Normal affect Lymphatics: No axilla or inguinal lymphadenopathy Assessment And Plan - Current Problems (Diagnosis) (1) Chest pain Onset Date: 10/04/18 Current Visit: Yes Status: Acute Qualifiers: Chest pain type: chest pain due to myocardial ischemia (2) Elevated troponin Onset Date: 10/04/18 Current Visit: Yes Status: Acute (3) Non-ST elevated myocardial infarction Onset Date: 10/04/18 Current Visit: Yes Status: Acute (4) Chronic back pain Onset Date: 10/04/18 Current Visit: Yes Status: Chronic Qualifiers: Back pain location: thoracic back pain Back pain laterality: bilateral Qualified Code(s): M54.6 - Pain in thoracic spine; G89.29 - Other chronic pain (5) Sleep apnea treated with nocturnal BiPAP Onset Date: 10/04/18 Current Visit: Yes Status: Chronic (6) Hypertension Current Visit: No Status: Chronic Qualifiers: Hypertension type: essential hypertension (7) Chronic kidney disease (CKD) Onset Date: 10/04/18 Current Visit: Yes Status: Chronic Qualifiers: Chronic kidney disease stage: stage 3 (moderate) Qualified Code(s): N18.3 - Chronic kidney disease, stage 3 (moderate) (8) Tobacco dependence Onset Date: 10/04/18 Current Visit: Yes Status: Acute - Plan This is a 63-year-old male with: Chest pain Elevated troponins. Non ST elevation myocardial infarction Chest pain guidelines Oxygen as needed. Morphine for pain control. Nitro p.r.n. Cardiology consulted. Pending cardiac cath today. Essential Hypertension Continue home medications. Will adjust as needed Sleep apnea, treated with nocturnal BiPAP Stable. Will order BiPAP as needed at night. Chronic back pain Patient with history of multiple back surgeries, including neck/cervical surgeries. Stable at this time. 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 Naomi WILSON and mucomyst to prep for pending heart cath tomorrow. Will continue to monitor kidney function. Tobacco dependence due to snuff counseled on cessation. DVT prophylaxis: Per cardiology GI prophylaxis: None Diet: Heart healthy Disposition: Pending cardiac cath today Time Spent Managing PTS Care (In Minutes): 35
[2018-10-04] MEDS: AMITRIPTYLINE 25 MG TAB PO SCH (21:57)
[2018-10-04] MEDS: ATORVASTATIN 80 MG TAB PO SCH (21:57)
[2018-10-04] MEDS: MONTELUKAST 10 MG TAB PO SCH (21:58)
--- NOTE | 2018-10-04 22:39 | OP ---
Surgeon: yAan Dodge MD Restaurant Service Manager: clinical laboratory assistant: Claudia Miranda. Procedures: Left heart catheterization with no left ventriculogram, coronary angiography was done an d then a percutaneous angioplasty with stent of a proximal left anterior descending lesion successful . Procedure Findings: The patient had diffuse moderate CAD. No portion of the arteries were normal. There were diffuse plaque calcification and tortuosity. There was one stenosis, it was in the proxim al LAD about a cm before the bifurcation and this had a 90% stenosis. After stenting, it was reduced to 0% stenosis. Procedure In Detail: The patient had evidence of a non-ST elevation [place]. He was brought to the [facility] carpenter/labor in a fasting state, sedated with Versed and fentanyl. Doses were repeatedly given throug hout the procedure because of pain in hips and legs and back. He was prepared and draped in usual st erile fashion. Right radial artery was used. The tissues around the right radial artery were anesth etized with 1% lidocaine. The artery was entered using a 21-gauge needle. Then, a 0.021 inch diamet er guidewire was used to cannulate the artery. We then used a modified Seldinger technique to place a 6-Malian Terumo radial sheath. It was flushed and a radial cocktail was given consisting of hepari n, nitroglycerin, and nicardipine. Throughout the case numerous doses of intravenous hydralazine wer e also given to get his systolic blood pressure less than 150. A TIG catheter was guided into the as cending aorta using fluoroscopy and a Terumo Glidewire with a short radius J-tip. A TIG catheter suc cessfully engaged right and left coronaries. We then used an exchange length J-wire and we placed a guide catheter and XB LAD 4.0 with side holes to engage the left main. We used a Kristen wire and an Emerge 3.0 x 15 balloon to help cannulate the LAD. We inflated our balloon into the lesion and there was more than a 40% residual stenosis and haziness, so we stented the same lesion. It was a 3.0 x 1 6. We inflated the balloon 3 times within the stent to 12 atmospheres. After the stent balloon was removed, the angiographic result was excellent. No residual stenosis. We removed the guidewire, too k pictures in 2 orthogonal views, and then removed the guide catheter. The TR band was used to close the arteriotomy that we had after removing the sheath. There were no complications from the procedu re. Estimated Blood Loss: 60 cc. LUC Voice ID: [id number] Report ID: [id number]
[2018-10-05] MEDS: NA CHLORIDE 0.9% 1,000 ML IV SCH (01:00)
--- NOTE | 2018-10-05 03:09 | PN ---
Date of Progress Note: 10/04/2018 Chief Complaint: Chronic kidney disease stage 3/4, diabetes mellitus, hypertension, and history of coronary artery disease. Interval History: He underwent cardiac catheterization. He was started on IV fluids and Mucomyst to prevent contrast induced nephropathy. The patient previously was evaluated in the ER and troponin was up to 1.1 and was trending up to 11. The patient is consulted by clutch rebuilder. Today, he has cardiac catheterization and underwent stent placement. He has multiple comorbidities including history of insulin-dependent diabetes mellitus, hypertension, and chronic kidney disease. Review of Systems: Denies fever or chills. Physical Examination: Lungs: Clear to auscultation bilaterally. Heart: S1, S2. Abdomen: Soft, benign. Extremities: No edema. Laboratory Data: Sodium 140, potassium 4.2, chloride 103, BUN 22, glucose 108, and troponin 7.31. Impression And Plan: 1. Acute on chronic kidney injury, nonoliguric ATN and today BUN is 22, creatinine 2.01. There is no significant improvement of the renal function. The patient will continue IV fluids and Mucomyst to prevent contrast induced nephropathy. 2. Hypertension. Blood pressure controlled. 3. Coronary artery disease, acute myocardial infarction, status post stent placement. Monitor electrolytes and renal panel. I spent total 36 min including 25 min to coordinate care plan. EMY/SAURABH Voice ID: [id number] Report ID: [id number] MTDD
[2018-10-05 04:22] LABS: Hematocrit 50.4 % (39.6-49.0); MPV 8.9 fL (7.6-11.3); RBC Red Blood Cell Count 5.32 M/uL (4.33-5.43)
[2018-10-05 04:41] LABS: Potassium 3.9 mmol/L (3.5-5.1)
[2018-10-05] MEDS: NEBIVOLOL HCL 5 MG TAB PO SCH ×2 (06:02→17:46)
[2018-10-05] MEDS: INSULIN -REGULAR HUMAN 50 UNIT/0.5 ML ML SQ SCH ×4 (07:30→20:55)
[2018-10-05] MEDS: DULOXETINE 30 MG CAP PO SCH (08:16)
[2018-10-05] MEDS: CLOPIDOGREL 75 MG TABLET PO SCH (08:16)
[2018-10-05] MEDS: AMLODIPINE 10 MG TAB PO SCH (08:17)
[2018-10-05] MEDS: INSULIN GLARGINE 100 UNITS/ML SQ SCH (08:17)
[2018-10-05] MEDS: ASPIRIN EC 81 MG TAB PO SCH (08:17)
--- NOTE | 2018-10-05 16:26 | RAD REPORT ---
EXAM DESCRIPTION: Watson Single View10/05/2018 3:06 pm CLINICAL HISTORY: Shortness of breath COMPARISON: October 01, 2018 FINDINGS: The lungs appear clear of acute infiltrate. The heart is normal size IMPRESSION: No acute abnormalities displayed
--- NOTE | 2018-10-05 20:31 | PN ---
Date of Progress Note: 10/05/2018 Subjective: Patient seen and examined. Chart reviewed and case discussed with RN, newscast producer, Dr. Little and Dr. Ramirez, Nephrology. Patient overall doing well and is status post cath. Medications: List reviewed. Physical Examination: Vital Signs: Temperature 97.9, heart rate 69, blood pressure 156/87, respirations 16, O2 of 97% on r oom air. GENERAL: Awake, alert, oriented x3. No acute distress. Morbidly obese male. CV: S1, S2. Regular rate and rhythm. Peripheral pulses present. Respiratory: Somewhat diminished breath sounds, otherwise moving air well bilaterally. Gastrointestinal: Abdomen is soft, nontender, nondistended. Positive bowel sounds. Extremities: No clubbing, cyanosis, or edema. Right wrist cath site is clean, dry, and intact. No hematoma. Pulses present. Neuro: Nonfocal. Cranial nerves 2 through 12 intact grossly. No neurological deficit. Speech is n ormal. Laboratory Data: Sodium 138, potassium 3.9, chloride 105, CO2 of 26, BUN 22, creatinine 2.5, glucose 155, calcium 8. WBC 8.7, hemoglobin 17.2 and hematocrit 50.4, platelets 187. Assessment And Plan: 1.Uga-HI-wdqpias elevation myocardial infarction, status post cardiac cath with stent in the LAD. W e will continue anti-platelet therapy. Appreciate Nephrology input. 2.Essential hypertension. Continue home medications. We will continue to monitor. 3.Acute kidney injury on chronic kidney disease stage 3. The patient does have some nonoliguric acu te tubular necrosis. We will continue to monitor kidney function. Repeat chest x-ray today. Apprec iate Dr. Ramriez's input. 4.Nicotine dependence. Counseled. 5.Chronic back pain, midline, without sciatica. 6.Obstructive sleep apnea, on BiPAP at night. 7.Morbid obesity, BMI 42.9. Plan: Followup on chest x-ray. Monitor kidney function, likely discharge in a.m. SA/MODL Voice ID: [id number] Report ID: [id number]
--- NOTE | 2018-10-05 20:46 | PN ---
Date of Progress Note: 10/05/2018 Subjective: The patient was admitted with non-ST elevation [place], status post cardiac cath. Yesterday, tolerated the cardiac cath. Kidney function is still stable. Physical Examination: Vital Signs: When I saw the patient, blood pressure 166/87, pulse of 69, afebrile. Chest: Clear to auscultation. Heart: S1, S2, regular. Abdomen: Soft, nontender. Extremities: No edema. Laboratory Data: WBC 8.7, H and H 17.2 and 50.4, platelet of 187. Sodium 138, potassium 3.9, bicarb 26, BUN 22, creatinine 2.1, GFR of 31, calcium of 8. Current Medications: The patient on include IV fluid, normal saline, Plavix, aspirin, Norvasc 10, at orvastatin, Bystolic, insulin, Singulair. Assessment And Plan: 1.Chronic kidney disease, stage 3B secondary to cardiorenal status post contrast exposure. Kidney f unction being stable, status post hydration and Mucomyst for the 12 hour before and after, looked to me normal volume currently. I am going to discontinue IV fluid. We will monitor. Keep holding Lasi x. 2.Hypertension, controlled optimal. Continue current medication. 3.Coronary artery disease, non-ST elevation myocardial infarction, status post contrast. Follow up with Cardiology. We will follow up kidney function. PHILIP Voice ID: [id number] Report ID: [id number]
[2018-10-05] MEDS: ATORVASTATIN 80 MG TAB PO SCH (20:54)
[2018-10-05] MEDS: MONTELUKAST 10 MG TAB PO SCH (20:54)
[2018-10-05] MEDS: AMITRIPTYLINE 25 MG TAB PO SCH (20:55)
[2018-10-06 04:39] LABS: Phosphorus 2.8 mg/dL (2.5-4.9)
[2018-10-06 04:40] LABS: Albumin 3.1 g/dL (3.4-5.0)
[2018-10-06] MEDS: NEBIVOLOL HCL 5 MG TAB PO SCH (07:14)
[2018-10-06] MEDS: INSULIN -REGULAR HUMAN 50 UNIT/0.5 ML ML SQ SCH (07:30)
[2018-10-06] MEDS: CLOPIDOGREL 75 MG TABLET PO SCH (09:10)
[2018-10-06] MEDS: AMLODIPINE 10 MG TAB PO SCH (09:10)
[2018-10-06] MEDS: DULOXETINE 30 MG CAP PO SCH (09:10)
[2018-10-06] MEDS: ASPIRIN EC 81 MG TAB PO SCH (09:11)
[2018-10-06] MEDS: INSULIN GLARGINE 100 UNITS/ML SQ SCH (09:12)
[2018-10-06 11:50] VITALS: O2SAT 96
[2018-10-06 12:27] VITALS: BP 151/69; TEMP 98.2
--- NOTE | 2018-10-06 14:44 | PN ---
Mr. Seth seems to be doing well following his proximal LAD stent, not having chest pain. His righ t radial artery entry site looks good. He is to be discharged home. He has his discharge medicines phoned into his pharmacy and I will see him in followup probably within 2 weeks. LUC Voice ID: [id number] Report ID: [id number]
--- NOTE | 2018-10-07 02:47 | PN ---
Date of Progress Note: 10/06/2018 Subjective: The patient is doing well status post cardiac cath the day before yesterday. Physical Examination: Vital Signs: When I saw the patient blood pressure 151/69, pulse of 68. Chest: Clear to auscultation. Heart: S1, S2, regular. Abdomen: Soft, nontender. Extremities: Trace edema. Laboratory Data: H and H 17.2/50.4. Sodium 139, potassium 4, bicarb 27, BUN 24, creatinine 2.5, katja cium 8.3. Current Medications: The patient on include atorvastatin, amitriptyline, Norvasc 10, Plavix, insulin , Singulair, Bystolic. Assessment And Plan: 1.Chronic kidney disease stage IIIB, status post contrast, tolerated the contrast, stable. Normal v olume. Continue to hold IV fluid. We will resume Lasix as 20 mg every other day. 2.Hypertension, controlled, optimal. Continue current medication. 3.Coronary artery disease status post xod-II-cnuytbkdn myocardial infarction, status post cardiac ca th, tolerated that well. Will follow up with Cardiology. The patient cleared from the renal standpo int for discharge planning. ELVIS/SAURABH Voice ID: [id number] Report ID: [id number]
--- NOTE | 2018-10-07 07:18 | DS ---
Date of Discharge: 10/06/2018 Consultants: Dr. Ramirez with Nephrology, Dr. Baker with nephrology, Dr. Dodge with Cardiology, Dr. Powers also with Nephrology. Procedures: Cardiac catheterization on 10/04/[address] Dodge. Left heart catheterization with no left ventriculogram. Cardiac angiography done with percutaneous angioplasty with stent of proximal left LAD. Admitting Diagnoses: 1.Chest pain. 2.Zdw-TN-pchuppqin myocardial infarction. 3.Chronic kidney disease, stage 3. 4.Shortness of breath. 5.Essential hypertension. Discharge Diagnoses: 1.Non-ST elevation myocardial infarction, status post stent in the left anterior descending artery. 2.Essential hypertension. 3.Acute on chronic kidney injury, stage 3, improving. 4.Acute tubular necrosis. 5.Nicotine dependence with cigarette smoking, continuous, counseled. 6.Chronic back pain, midline, without sciatica. 7.Obstructive sleep apnea, on BiPAP at night. 8.Morbid obesity. Body mass index of 42.9. Hospital Course: The patient is a 63-year-old male who comes into the hospital with chest discomfort . The patient was found to have NSTEMI. He also had elevated troponin level. The patient was evalu ated by Cardiology and the patient was taken for cardiac catheterization and had stent placed in the LAD. The patient did well. After the heart catheterization, his chest pain resolved. His kidney fu nction, however, was affected with some acute tubular necrosis secondary to contrast induced nephropa thy. The patient was seen by Nephrology and his kidney function did remain stable. The patient was hydrated. He was also given Mucomyst. The patient was then cleared for discharge and did not have a ny further chest pain. Kidney function was back down to normal. The patient was then discharged waqas e in a stable condition. Activity: As tolerated. No strenuous activity. Medications: As per medication reconciliation list. Followup: Follow up with primary care physician in 2-3 days. Follow up with neck band operator, Dr. Samuel fair, in 2 weeks. Follow up with sliver lap tender, Dr. Dodge, in 2 weeks. Return to ER for worsening co ndition. Physical Examination: General: Awake, alert, oriented x3. Morbidly obese, elderly male. CV: S1, S2. Regular rate and rhythm. No murmurs. Respiratory: Moving air well bilaterally. No wheezing. Gastrointestinal: Abdomen is soft, nontender, nondistended. Positive bowel sounds. Extremities: No clubbing, cyanosis, edema. Skin: Right wrist catheterization site is clean, dry, intact. No hematoma. Neuro: Cranial nerves 2-12 intact. Grossly, no focal neurologic deficits. Sensation intact to ligh t touch. Vascular: Radial pulses present bilaterally. Total time spent discharging the patient was 34 minutes. /SAURABH Voice ID: [id number] Report ID: [id number]
--- NOTE | 2018-10-08 00:23 | PN ---
Date of Progress Note: 10/05/2018 Mr. Seth is a 63-year-old male who was admitted on 10/01/2018 with non-ST elevation myocardial inf arction, renal insufficiency, initial Creatinine of 2.39. Nephrology and I have been following him a long. His last creatinine was 1.9. He received Mucomyst and hydration. He had a heart catheterizat ion by Dr. Dodge on 10/04/2018, underwent an LAD stent. Overnight on 10/05/2018, he has done well. No chest pain. No access issue. No telemetry changes. Renal function appeared to be stable. From our standpoint, he can he can go home and we need to see him in the office in the next 2 weeks. NUSRAT/SAURABH Voice ID: [id number] Report ID: [id number]
== END 2018-10-06 12:51 | disposition home or self-care (01) | DRG 246 ==
LOC: ER 16:30 → ERHOLD 20:50 → 4TH 21:33 → OBSVTOIN 10-02 12:03
PROVIDERS: ADMIT Hospitalist; ATTEND Family Medicine
PROC: 027034Z Dilation of Coronary Artery, One Artery with Drug-eluting Intraluminal Device, Percutaneous Approach (ICD-10-PCS; principal; 2018-10-04)
PROC: 4A023N7 Measurement of Cardiac Sampling and Pressure, Left Heart, Percutaneous Approach (ICD-10-PCS; 2018-10-04)
PROC: B211YZZ Fluoroscopy of Multiple Coronary Arteries using Other Contrast (ICD-10-PCS; 2018-10-04)
DX: I21.4 Non-ST elevation (NSTEMI) myocardial infarction (principal); N17.0 Acute kidney failure with tubular necrosis; Z68.41 Body mass index [BMI] 40.0-44.9, adult; M54.6 Pain in thoracic spine; G89.29 Other chronic pain; G47.33 Obstructive sleep apnea (adult) (pediatric); I12.9 Hypertensive chronic kidney disease with stage 1 through stage 4 chronic kidney disease, or unspecified chronic kidney disease; N18.3 Chronic kidney disease, stage 3 (moderate); J44.9 Chronic obstructive pulmonary disease, unspecified; K21.9 Gastro-esophageal reflux disease without esophagitis; G25.81 Restless legs syndrome; Z88.5 Allergy status to narcotic agent; Z88.8 Allergy status to other drugs, medicaments and biological substances; J61 Pneumoconiosis due to asbestos and other mineral fibers; E78.5 Hyperlipidemia, unspecified; R80.9 Proteinuria, unspecified; F17.210 Nicotine dependence, cigarettes, uncomplicated; I25.10 Atherosclerotic heart disease of native coronary artery without angina pectoris; E66.01 Morbid (severe) obesity due to excess calories; N14.1 Nephropathy induced by other drugs, medicaments and biological substances; T50.8X5A Adverse effect of diagnostic agents, initial encounter; Y92.239 Unspecified place in hospital as the place of occurrence of the external cause
CPT/HCPCS: 36415; 71045; 80048; 80061; 80069; 80076; 81003; 81015; 82962; 83735; 83880; 84484; 85025; 85027; 85610; 93005; 93306; 93454; 94660; 96372; 96374; 99285; C1725; C1877; C1893; C9600; J0360; J0583; J1644; J1650; J2250; J2405; J3010; J7030

== ENCOUNTER 2019-02-07 08:30 | Observation (INO) | payer OTHER ==
[2019-02-07] MEDS ORDERED: NA CHLORIDE 0.9% 500 ML ONE (09:15)
[2019-02-07 09:55] LABS: Protime INR 1.03
[2019-02-07] MEDS ORDERED: HEPA 1000U/500MLS 2,000 UNIT/1,000 ML BAG IV ONE (11:34)
[2019-02-07] MEDS ORDERED: HEPARIN 5000 UNIT/ML 1 ML VIAL ONE (11:34)
[2019-02-07] MEDS ORDERED: MIDAZOLAM HCL 2 MG/2 ML INJ ONE (11:34)
[2019-02-07] MEDS ORDERED: ATROPINE SULF 1 MG/10 ML SYR IV ONE (11:35)
[2019-02-07] MEDS ORDERED: NA CHLORIDE 0.9% 0 ML IV ONE (11:35)
[2019-02-07] MEDS ORDERED: NICARDIPINE HCL 25 MG/10 ML IV ONE (11:35)
[2019-02-07] MEDS ORDERED: FENTANYL CITR 100 MCG/2 ML ONE (11:35)
[2019-02-07] MEDS ORDERED: NITROGLYCERIN 100 MCG/ML SYR (for cath lab use only) IV ONE (11:35)
[2019-02-07] MEDS ORDERED: GLUCAGON 1 MG/VIAL IM PRN (12:41)
[2019-02-07] MEDS ORDERED: D50W 25 GM/50 ML SYRINGE IV PRN (12:41)
--- NOTE | 2019-02-07 12:44 | P.HP ---
Certification for Inpatient Patient admitted to: Observation With expected LOS: <2 Midnights Patient will require the following post-hospital care: None Practitioner: I am a practitioner with admitting privileges, knowledge of patient current condition, hospital course, and medical plan of care. Services: Services provided to patient in accordance with Admission requirements found in Title 42 Section 412.3 of the Code of Federal Regulations Patient History Date of Service: 02/07/19 Primary Care Provider: Dr. Charlton; Card-Dr. Dodge; Nephrology-Dr. Ramirez Reason for admission: Chest pain History of Present Illness: 64-year-old male presented to outpatient surgery for heart catheterization. Patient had heart catheterization today by Cardiology. Patient has been getting Mucomyst prior to the procedure as the patient has underlying chronic renal disease stage IV. Heart catheterization went well. No need for stent placement. Patient with history of prior stent and CAD. Patient received 72 cc of IV contrast. Cardiology recommended the patient continue to be monitored overnite due to his chronic renal disease. Patient is to continue with Mucomyst. Patient stable at this time. Patient without any chest pain post heart catheterization. Allergies cefuroxime [From Ceftin] Allergy (Verified 08/31/16 22:54) Itching/Hives/Rash latex Allergy (Verified 09/03/16 13:12) Hives naproxen [From Aleve] Allergy (Verified 08/31/16 22:54) Itching Sulfa (Sulfonamide Antibiotics) Allergy (Verified 02/07/19 09:55) Hives codeine Adverse Reaction (Verified 08/31/16 22:54) Nausea/Vomiting hydrocodone Adverse Reaction (Verified 08/31/16 22:54) Nausea/Vomiting tramadol Adverse Reaction (Verified 08/31/16 22:54) Nausea/Vomiting Home medications list reviewed: Yes Home Medications: Amitriptyline [Elavil*] 25 mg PO BEDTIME 09/01/16 Aspirin [Arjun Chewable Aspirin] 81 mg PO DAILY 09/01/16 Duloxetine HCl 60 mg PO DAILY 09/01/16 Furosemide 20 mg PO SEECOM 09/01/16 Insulin Regular, Human [Humulin R U-500 Kwikpen] 30 unit SQ AC 09/01/16 Isosorbide Mononitrate [Isosorbide Mononitrate ER] 30 mg PO DAILY 09/01/16 Amlodipine [Norvasc*] 5 mg PO DAILY 10/02/18 Icosapent Ethyl [Vascepa] 2 cap PO BID 10/02/18 Insulin Degludec [Tresiba Flextouch U-100] 76 units SQ DAILY 10/02/18 Montelukast [Singulair*] 10 mg PO BEDTIME 10/02/18 Nebivolol HCl [Bystolic*] 10 mg PO BID 10/02/18 Atorvastatin Calcium [Lipitor] 80 mg PO BEDTIME #30 tab 10/06/18 Clopidogrel Bisulfate [Plavix*] 75 mg PO DAILY #30 tablet 10/06/18 - Past Medical/Surgical History Diabetic: Yes -: Asbestosis -: Diabetes mellitus type 2, insulin dependent -: GERD -: Restless leg syndrome -: Chronic pain neck, arms, shoulder, back -: HTN -: Neuropathy -: Chronic kidney disease, stage IV -: Hyperlipidemia -: Former tobacco use -: Back sx x2 -: Cholecystectomy -: Hernia repair -: Heart catheterization, stent placement Psychosocial/ Personal History: Patient is - Family History Family History: Reviewed- Non-Contributory - Social History Smoking Status: Former smoker Alcohol use: No CD- Drugs: No Caffeine use: Yes Place of Residence: Home Review of Systems General: As per HPI Eyes: Unremarkable ENT: Unremarkable Respiratory: Unremarkable Cardiovascular: Chest Pain, Edema, As per HPI Gastrointestinal: Unremarkable Genitourinary: Unremarkable Musculoskeletal: Pedal edema, As per HPI Integumentary: Unremarkable Neurological: Unremarkable Lymphatics: Unremarkable Physical Examination - Vital Signs Temperature: 98.0 F Blood Pressure: 154/65 Pulse: 58 Respirations: 16 - Physical Exam General: Alert, In no apparent distress, Oriented x3, Cooperative HEENT: Atraumatic, Normocephalic, PERRLA, Mucous membr. moist/pink Neck: Supple Respiratory: Clear to auscultation bilaterally, Normal air movement Cardiovascular: Normal pulses, Regular rate/rhythm Gastrointestinal: Normal bowel sounds, Soft and benign, Non-distended, No tenderness, No masses, No rebound, No guarding Musculoskeletal: No erythema, No tenderness, No warmth Integumentary: No tenderness/swelling, No erythema, No warmth, No cyanosis Neurological: Normal speech, Normal strength at 5/5 x4 extr, Normal tone, Normal affect - Studies Laboratory Data (last 24 hrs) 02/07/19 09:26: PT 12.1, INR 1.03, APTT 32.5 02/07/19 09:26: BUN 38 H, Creatinine 2.84 H Assessment and Plan - Plan Impression: Chest pain status post heart catheterization, history of stent and CAD Chronic renal disease stage IV Diabetes mellitus type 2, insulin-dependent Hypertension Hyperlipidemia Chronic pain with diabetic neuropathy Plan: Chest pain status post heart catheterization, history of stent and CAD: Patient status post heart catheterization. No stent was placed. Patient with CAD. Patient will continue with medical management as per Cardiology. Patient received 72 cc of IV contrast. Due to his chronic renal disease, the patient will continue with Mucomyst for the next 24 hr along with IV fluids. Will recheck lab in the morning. Anticipate discharge in the next 24 hr if stable. Nephrology has been consulted for further recommendation. Chronic renal disease stage IV: Status post heart catheterization. Patient received IV contrast. Continue as above. Nephrology consulted. Case discussed with nephrology. Continue with Mucomyst and IV fluids. Will recommend no further use of nonsteroidal anti-inflammatories. Future medications will need to be renally dosed. come Diabetes mellitus type 2, insulin-dependent: Will monitor Accu-Cheks and provide sliding scale. Hypertension: Continue the medication. Hyperlipidemia: Continue medication. Chronic pain with diabetic neuropathy: Continue medication. Discharge Plan: Home Plan to discharge in: 24 Hours - Advance Directives Does patient have a Living Will: Yes Does patient have a Durable POA for Healthcare: Yes - Code Status/Comfort Care Code Status Assessed: Yes (Patient full code.) Time Spent Managing Pts Care (In Minutes): 55
[2019-02-07] MEDS ORDERED: ACETAMINOPHEN 325 MG TABLET PO PRN (13:00)
[2019-02-07] MEDS ORDERED: NITROGLYCERIN 0.4 MG/TAB SL PRN (13:00)
[2019-02-07] MEDS ORDERED: NA CHLORIDE 0.9% 1,000 ML IV SCH (13:00)
[2019-02-07] MEDS: INSULIN -REGULAR HUMAN 50 UNIT/0.5 ML ML SQ SCH ×2 (16:30→21:11)
[2019-02-07] MEDS ORDERED: FENTANYL CITR 100 MCG/2 ML IV PRN (16:47)
[2019-02-07] MEDS: NA CHLORIDE 0.9% 1,000 ML IV SCH (16:51)
[2019-02-07 17:33] VITALS: BMI 41.5
[2019-02-07] MEDS: NEBIVOLOL HCL 5 MG TAB PO SCH (21:08)
[2019-02-07] MEDS: ACETYLCYST 6,000 MG/30 ML VIAL PO SCH (21:09)
[2019-02-07] MEDS: ATORVASTATIN 80 MG TAB PO SCH (21:10)
--- NOTE | 2019-02-07 23:57 | OP ---
Surgeon: Ayan Dodge MD Stick Inserter: behavioral health assistant: Mi Matthews. The patient is a 64-year-old man. Procedures: Left heart catheterization, coronary angiography. No left ventriculogram was done to re duce the amount of x-ray contrast material he received. Procedure Findings: The patient's LAD stent placed in September of this year was widely patent. No st enosis. There is diffuse mild to moderate plaque. There is a 50% lesion in the mid LAD and otherwis e very ectatic artery. It was felt not to be severe enough to be causing any angina or need a stent, so we deferred any treatment of his RCA lesion, and LV gram was not done. Total contrast used was 72.5 cc. Procedure In Detail: The patient was brought to the cardiac cath lab manager in a fasting state sedated with Versed and fentanyl, prepared and draped in usual sterile fashion. Right radial approach used. We anesthetized the skin over the artery with 1% lidocaine, entered it with a 21-gauge needle, cannulate d it with a 0.021 inch diameter guidewire, and placed a 6-Arabic TerumAlcyone Lifesciences radial sheath. The sheath wa s then flushed. A radial cocktail was given consisting of nicardipine, heparin, nitroglycerin. A TI G catheter was guided into the ascending aorta using fluoroscopy and a Dining SecretaryumAlcyone Lifesciences short radius J-tip Glid ewire. We used the TIG catheter to angiogram the right and left coronaries and to measure pressures in the left ventricle. The left ventricular end-diastolic pressure was 7. All the pressures were no rmal. At the end of the procedure when the decision was made not to do any interventions, the cathet er was removed over a guidewire, sheath was removed, and the arteriotomy closed with a TR band. Estimated Blood Loss: 5 cc SH/MODL Voice ID: [id number] Report ID: [id number]
[2019-02-08 01:18] LABS: Albumin 3.6 g/dL (3.4-5.0); Bilirubin Total 0.6 mg/dL (0.2-1.0); Potassium 3.8 mmol/L (3.5-5.1); Protein, Total 7.3 g/dL (6.4-8.2)
--- NOTE | 2019-02-08 04:28 | CON ---
Date of Consultation: 02/07/2019 Chief Complaint: Acute on chronic kidney injury, cardiorenal syndrome. History Of Present Illness: The patient was admitted to the hospital for evaluation of severe coronary artery disease. The patient was found to have elevated BUN and creatinine. The patient received a Mucomyst preparation for cardiorenal syndrome. The patient is to have electrolytes evaluated after IV contrast exposure to rule out hyperkalemia. The patient has chronic kidney disease stage 4. Today blood work showed BUN of 38, creatinine of 2.84. The patient has nonoliguric urine output. He has fluid overload. He was complaining of chest pain and had cardiac catheterization done today. Subsequently, he is admitted to the hospital for management of chronic kidney disease with exacerbation. Previously BUN was 25, creatinine 2.29. Today creatinine level is up to 2.84. The patient has acute on chronic kidney injury with prerenal azotemia, cardiorenal syndrome. Electrolytes were checked and showed sodium 140, potassium 4.5, chloride 105, CO2 of 28, BUN 35 and uric acid was 7.9. After procedure with IV contrast, electrolytes will be checked to rule out hyperkalemia. The patient is on Mucomyst and IV fluids were started for mild hydration. Review of Systems: Constitutional: The patient denies fever, chills. Eyes: Denies vision changes. Ears, Nose, Mouth and Throat: Denies sore throat, earache. Respiratory: Has shortness of breath with activities. He has PND, orthopnea. Cardiovascular: Denies chest pain, palpitation. GI: Denies nausea, vomiting. : Denies dysuria, hematuria. Musculoskeletal: He has muscle aches and joint swelling. All other systems reviewed and all are negative. Past Medical History: Asbestosis; diabetes mellitus type 2 insulin-dependent; GERD; restless legs syndrome; chronic pain in neck, arms, shoulder and back; hypertension; peripheral neuropathy; hyperlipidemia; back surgery; cholecystectomy; cardiac catheterization; stent placement. Family History: Noncontributory. Social History: Negative for tobacco, alcohol, or illicit drugs. Family History: Noncontributory. Physical Examination: General: The patient is awake, alert, follows commands. Eyes: Anicteric sclerae. EOMI. Ears, Nose, Mouth and Throat: Oral mucosa moist. No pallor. Neck: Supple. No JVD. No bruits. Lungs: Crackles bilaterally at bases. No rhonchi. No wheezing. Heart: S1, S2. No pericardial friction rub. Abdomen: Soft, benign, nontender, obese. Extremities: No edema. No clubbing. No cyanosis Neurological: Moving extremities. Cranial nerves intact. Psychiatric: Alert, oriented x3. Normal affect. Laboratory Data: BUN 38, creatinine 2.84. Impression And Plan: 1. Acute on chronic kidney injury with cardiorenal syndrome. The patient although will require short hydration with IV normal saline 50 cc/hour after IV contrast procedure to prevent contrast-induced nephropathy. The patient will continue Mucomyst. 2. Cardiorenal syndrome. Continue beta liliam. Monitor blood pressure closely. 3. Chronic kidney disease, advanced. Avoid nonsteroidal anti-inflammatory medication. 4. Hypertension. Blood pressure is in acceptable control. 5. Coronary artery disease. Status post contrast exposure, the patient will have IV fluids and Mucomyst. The patient received treatment previously with Mucomyst prior to this admission. Continue treatment with Mucomyst 1200 twice a day. EMY/SAURABH Voice ID: [id number] Report ID: [id number] MTDNita
[2019-02-08 04:35] LABS: Magnesium 2.1 mg/dL (1.8-2.4); Potassium 3.7 mmol/L (3.5-5.1)
[2019-02-08 07:07] LABS: Urine Appearance CLEAR; Urine Bilirubin NEGATIVE (NEG); Urine Blood NEGATIVE (NEG); Urine Color YELLOW; Urine Glucose NEGATIVE (NEG); Urine Protein 3+ (NEG); Urine Specific Gravity 1.015 (1.005-1.030); Urine pH 6.5 (5.0-7.0)
[2019-02-08 07:20] LABS: Urine Microscopic Reflex ORDER UMIC
[2019-02-08] MEDS: INSULIN -REGULAR HUMAN 50 UNIT/0.5 ML ML SQ SCH ×4 (07:30→20:22)
[2019-02-08] MEDS ORDERED: FUROSEMIDE 40 MG TABLET PO SCH (09:00)
[2019-02-08] MEDS: NA CHLORIDE 0.9% 1,000 ML IV SCH (09:00)
--- NOTE | 2019-02-08 09:36 | P.DS ---
Admission Date: 02/07/19 Discharge Date: 02/08/19 Primary Care Provider: Dr. Charlton; Card-Dr. Dodge; Nephrology-Dr. Ramirez Disposition: ROUTINE DISCHARGE Discharge Condition: GOOD Reason for Admission: Chest pain Consultations: Cardiology-Dr. Dodge Nephrology-Dr. Bowden Procedures: Heart catheterization: Surgeon: Ayan Dodge MD Otorhinolaryngologist: tmd teacher assistant: iM Matthews. The patient is a 64-year-old man. Procedures: Left heart catheterization, coronary angiography. No left ventriculogram was done to reduce the amount of x-ray contrast material he received. Procedure Findings: The patient's LAD stent placed in September of this year was widely patent. No stenosis. There is diffuse mild to moderate plaque. There is a 50% lesion in the mid LAD and otherwise very ectatic artery. It was felt not to be severe enough to be causing any angina or need a stent, so we deferred any treatment of his RCA lesion, and LV gram was not done. Total contrast used was 72.5 cc. Estimated Blood Loss: 5 cc Medical Problem List: Chest pain status post heart catheterization showing pain and LAD stent with diffuse CAD Chronic renal disease stage IV Diabetes mellitus type 2, insulin-dependent Hypertension Hyperlipidemia Chronic pain with diabetic neuropathy Brief History of Present Illness: 64-year-old male presented to outpatient surgery for heart catheterization. Patient had heart catheterization today by Cardiology. Patient has been getting Mucomyst prior to the procedure as the patient has underlying chronic renal disease stage IV. Heart catheterization went well. No need for stent placement. Patient with history of prior stent and CAD. Patient received 72 cc of IV contrast. Cardiology recommended the patient continue to be monitored overnite due to his chronic renal disease. Patient is to continue with Mucomyst. Patient stable at this time. Patient without any chest pain post heart catheterization. 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 Patient was set up for outpatient heart catheterization. Due to his chronic renal disease, the patient was given Mucomyst prior to the procedure as an outpatient. Heart catheterization performed. LAD stent placed in September of 2018 was widely patent. No stenosis identified. Diffuse mild to moderate plaque was noted. 50% lesion in the mid-LAD noted. No need for stent was required. Patient received a total of IV contrast of 72.5 cc. The patient was observed overnite and continued with Mucomyst and IV fluids to prevent contrast associated nephropathy. Patient has done well. Repeat lab shows no significant change. At discharge patient will continue with aspirin 81 mg daily, Plavix 75 mg daily , Lipitor 80 mg daily, Bystolic 10 mg 1 pill twice a day, Lasix 80 mg daily, Vascepa 2 g 1 pill twice daily, and isosorbide mononitrate ER 30 mg daily. Education on CAD will be provided. Recommend to follow up with cardiology to further monitor and address. Recommend no further use of nonsteroidal anti- inflammatories. Future medications will need to be renally dosed. Recommend to follow up with nephrology in 1-2 weeks to follow up this hospitalization as well. Recommend to recheck lab-BMP in 1 week to monitor his progress. Patient with chronic renal disease stage IV. Patient given Mucomyst prior to heart catheterization and after. Patient was given IV fluids as well to prevent IV contrast associated nephropathy. Lab remain stable. Recommend to recheck lab-in 1 week. Recommend to follow up with nephrology in 1-2 weeks to follow up this hospitalization. Recommend no further use of nonsteroidal anti- inflammatories. Future medications will need to be renally dosed. Patient with diabetes mellitus type 2, insulin dependent. Recommend to continue his insulin regimen of Tresiba 75 units subcu daily and sliding scale. Recommend to maintain blood sugars less 140 fasting and less than 200 after meals. Further adjustment can be done by his PCP. Patient with hypertension. Patient will continue with Bystolic 10 mg 1 pill twice daily. Recommend to maintain blood pressures less 150/80. Further adjustment can be done by cardiology. Patient with hyperlipidemia. At discharge he will continue with his medications of Vascepa 2 g 1 pill twice daily and Lipitor 80 mg daily. Patient with diabetic neuropathy. Patient will continue with his medication of Elavil 25 mg at bedtime, Cymbalta 60 mg daily, and gabapentin 600 mg at bedtime. Vital Signs/Physical Exam: Temp Pulse Resp BP Pulse Ox 97.4 F 56 19 145/81 H 99 02/08/19 08:00 02/08/19 08:00 02/08/19 08:00 02/08/19 08:00 02/08/19 08:00 General: Alert, In no apparent distress, Oriented x3, Cooperative HEENT: Atraumatic Neck: Supple Respiratory: Clear to auscultation bilaterally, Normal air movement Cardiovascular: Normal pulses, Regular rate/rhythm Gastrointestinal: Normal bowel sounds, Soft and benign, Non-distended, No tenderness, No masses, No rebound, No guarding Musculoskeletal: No erythema, No tenderness, No warmth Integumentary: No tenderness/swelling, No erythema, No warmth, No cyanosis Neurological: Normal speech, Normal strength at 5/5 x4 extr, Normal tone, Normal affect Laboratory Data at Discharge: PT 12.1 SECONDS (9.5-12.5) 02/07/19 09:26 INR 1.03 02/07/19 09:26 APTT 32.5 SECONDS (24.3-36.9) 02/07/19 09:26 Sodium 140 mmol/L (136-145) 02/08/19 03:53 Potassium 3.7 mmol/L (3.5-5.1) 02/08/19 03:53 BUN 34 mg/dL (7-18) H 02/08/19 03:53 Creatinine 2.60 mg/dL (0.55-1.3) H 02/08/19 03:53 Glucose 132 mg/dL (74-106) H 02/08/19 03:53 Magnesium 2.1 mg/dL (1.8-2.4) 02/08/19 03:53 Total Bilirubin 0.6 mg/dL (0.2-1.0) 02/08/19 00:45 AST 32 U/L (15-37) 02/08/19 00:45 ALT 54 U/L (12-78) 02/08/19 00:45 Alkaline Phosphatase 97 U/L (45-117) 02/08/19 00:45 Home Medications: Amitriptyline [Elavil*] 25 mg PO BEDTIME 09/01/16 Aspirin [Arjun Chewable Aspirin] 81 mg PO DAILY 09/01/16 Duloxetine HCl 60 mg PO DAILY 09/01/16 Furosemide 80 mg PO DAILY 09/01/16 Insulin Regular, Human [Humulin R U-500 Kwikpen] 30 unit SQ AC 09/01/16 Isosorbide Mononitrate [Isosorbide Mononitrate ER] 30 mg PO DAILY AFTER SUPPER 09/01/16 Icosapent Ethyl [Vascepa] 2 cap PO BID 10/02/18 Insulin Degludec [Tresiba Flextouch U-100] 75 units SQ DAILY 10/02/18 Montelukast [Singulair*] 10 mg PO BEDTIME 10/02/18 Nebivolol HCl [Bystolic*] 10 mg PO BID 10/02/18 Atorvastatin Calcium [Lipitor] 80 mg PO BEDTIME #30 tab 10/06/18 Clopidogrel Bisulfate [Plavix*] 75 mg PO DAILY #30 tablet 10/06/18 Acetaminophen/Chlorpheniramine [Coricidin Hbp Cold & Flu Tab] 1 tab PO BEDTIME 02/07/19 Cyanocobalamin (Vitamin B-12) [Vitamin B12] 1 tab PO DAILY 02/07/19 Gabapentin 600 mg PO BEDTIME 02/07/19 Patient Discharge Instructions: 1. Recommend a follow up with his PCP in 1-2 weeks to follow up this hospitalization. 2. 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 Patient was set up for outpatient heart catheterization. Due to his chronic renal disease, the patient was given Mucomyst prior to the procedure as an outpatient. Heart catheterization performed. LAD stent placed in September of 2018 was widely patent. No stenosis identified. Diffuse mild to moderate plaque was noted. 50% lesion in the mid-LAD noted. No need for stent was required. Patient received a total of IV contrast of 72.5 cc. The patient was observed overnite and continued with Mucomyst and IV fluids to prevent contrast associated nephropathy. Patient has done well. Repeat lab shows no significant change. At discharge patient will continue with aspirin 81 mg daily , Plavix 75 mg daily, Lipitor 80 mg daily, Bystolic 10 mg 1 pill twice a day, Lasix 80 mg daily, Vascepa 2 g 1 pill twice daily, and isosorbide mononitrate ER 30 mg daily. Education on CAD will be provided. Recommend to follow up with cardiology to further monitor and address. Recommend no further use of nonsteroidal anti-inflammatories. Future medications will need to be renally dosed. Recommend to follow up with nephrology in 1-2 weeks to follow up this hospitalization as well. Recommend to recheck lab-BMP in 1 week to monitor his progress. 3. Patient with chronic renal disease stage IV. Patient given Mucomyst prior to heart catheterization and after. Patient was given IV fluids as well to prevent IV contrast associated nephropathy. Lab remain stable. Recommend to recheck lab-in 1 week. Recommend to follow up with nephrology in 1 -2 weeks to follow up this hospitalization. Recommend no further use of nonsteroidal anti-inflammatories. Future medications will need to be renally dosed. 4. Patient with diabetes mellitus type 2, insulin dependent. Recommend to continue his insulin regimen of Tresiba 75 units subcu daily and sliding scale. Recommend to maintain blood sugars less 140 fasting and less than 200 after meals. Further adjustment can be done by his PCP. 5. Patient with hypertension. Patient will continue with Bystolic 10 mg 1 pill twice daily. Recommend to maintain blood pressures less 150/80. Further adjustment can be done by cardiology. 6. Patient with hyperlipidemia. At discharge he will continue with his medications of Vascepa 2 g 1 pill twice daily and Lipitor 80 mg daily. 7. Patient with diabetic neuropathy. Patient will continue with his medication of Elavil 25 mg at bedtime, Cymbalta 60 mg daily, and gabapentin 600 mg at bedtime. Diet: AHA Activity: Ad evon Time spent managing pt's care (in minutes): 55
[2019-02-08] MEDS: DULOXETINE 30 MG CAP PO SCH (09:40)
[2019-02-08] MEDS: ACETYLCYST 6,000 MG/30 ML VIAL PO SCH ×2 (09:40→20:21)
[2019-02-08] MEDS: CLOPIDOGREL 75 MG TABLET PO SCH (09:41)
[2019-02-08] MEDS: NEBIVOLOL HCL 5 MG TAB PO SCH ×2 (09:41→20:20)
[2019-02-08] MEDS: ASPIRIN EC 81 MG TAB PO SCH (09:41)
[2019-02-08] MEDS: CYANOCOBALAMIN 1,000 MCG TAB PO SCH (09:44)
[2019-02-08 10:11] LABS: Urine Bacteria NONE SEEN /HPF (NONE SEEN); Urine RBC NONE SEEN /HPF (NONE SEEN)
[2019-02-08 10:12] LABS: Urine Culture Reflex Order NOT NEEDED
[2019-02-08] MEDS: ICOSAPENT ETHYL 1 GM CAP PO SCH ×2 (13:38→20:22)
[2019-02-08] MEDS ORDERED: ISOSORBIDE MONO SR 30 MG TAB PO SCH (17:30)
[2019-02-08 18:33] LABS: CKMB Creatine Kinase MB 2.9 ng/mL (0.3-3.6)
--- NOTE | 2019-02-08 19:10 | CON ---
Date of Consultation: 02/08/2019 Consultation Physician: Ag Yoon DO. Reason For Consultation: Elevated BUN and creatinine. DICTATION CANCELLED ELVIS/SAURABH Voice ID: [id number] Report ID: [id number]
--- NOTE | 2019-02-08 20:07 | PN ---
Date of Progress Note: 02/08/2019 Subjective: The patient was admitted with unstable angina, coronary artery disease. The patient und erwent cardiac cath. The patient yesterday complaining from some back pain after taking Lipitor. Physical Examination: Vital Signs: Blood pressure 127/81, pulse of 62. Chest: Clear to auscultation. Heart: S1, S2. Regular. Abdomen: Soft, nontender. Extremities: +1 edema. Neurological: Alert, oriented x3. No focal. Laboratory Data: Sodium 141, potassium is 3.7, bicarb 27, BUN 34, creatinine 2.6, calcium 8.5, magne sium of 2. Medications: Current medications the patient is on include Plavix, aspirin, atorvastatin, Bystolic, nitroglycerin, amitriptyline, gabapentin, Lasix 80, fentanyl, singular. Assessment And Plan: 1.Chronic kidney disease stage 4 secondary to diabetes/cardiorenal, stable normal volume. I am claire g to decrease Lasix to 60 mg and we will monitor the patient. 2.Hypertension, controlled optimal. 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 Keep holding the statin. We will send for CK. I am claire g to go ahead and send for vitamin D and we will follow up the patient. 4.Coronary artery disease status post cardiac cath. I am going to go ahead and follow up the chemis try tomorrow. If tomorrow kidney function continues to be stable around his baseline, the patient okay from the renal standpoint for discharge planning to follow up in the office in 2 weeks to repeat chemistry. PHILIP Voice ID: [id number] Report ID: [id number]
[2019-02-08] MEDS: ATORVASTATIN 80 MG TAB PO SCH (20:21)
[2019-02-08] MEDS ORDERED: ALPRAZOLAM 0.25 MG TABLET PO ONE (21:00)
[2019-02-08] MEDS ORDERED: MONTELUKAST 10 MG TAB PO SCH (21:00)
[2019-02-08] MEDS ORDERED: AMITRIPTYLINE 25 MG TAB PO SCH (21:00)
[2019-02-08] MEDS ORDERED: GABAPENTIN 300 MG CAP PO SCH (21:00)
[2019-02-08] MEDS ORDERED: GABAPENTIN 300 MG CAP PO ONE (23:52)
[2019-02-09 06:53] LABS: Albumin 3.5 g/dL (3.4-5.0); Phosphorus 3.4 mg/dL (2.5-4.9); Potassium 3.9 mmol/L (3.5-5.1)
[2019-02-09] MEDS: INSULIN -REGULAR HUMAN 50 UNIT/0.5 ML ML SQ SCH ×2 (07:30→11:13)
[2019-02-09] MEDS: ASPIRIN EC 81 MG TAB PO SCH (08:12)
[2019-02-09] MEDS: NEBIVOLOL HCL 5 MG TAB PO SCH (08:12)
[2019-02-09] MEDS: CYANOCOBALAMIN 1,000 MCG TAB PO SCH (08:12)
[2019-02-09] MEDS: CLOPIDOGREL 75 MG TABLET PO SCH (08:12)
[2019-02-09] MEDS: DULOXETINE 30 MG CAP PO SCH (08:13)
[2019-02-09] MEDS: ICOSAPENT ETHYL 1 GM CAP PO SCH (08:14)
[2019-02-09 08:17] VITALS: BP 137/66
[2019-02-09 08:59] VITALS: O2SAT 94
[2019-02-09] MEDS ORDERED: FUROSEMIDE 40 MG TABLET PO SCH ×2 (09:00)
[2019-02-09] MEDS: ACETYLCYST 6,000 MG/30 ML VIAL PO SCH (09:35)
[2019-02-09 09:41] VITALS: TEMP 97.3
--- NOTE | 2019-02-10 04:20 | PN ---
Date of Progress Note: 02/09/2019 Subjective: The patient was admitted with coronary artery disease. The patient underwent cardiac cath, hydrated after cardiac cath, feeling well. Edema has been responding very well to current diuresis. Physical Examination: Vital Signs: Blood pressure 137/66, pulse of 52. Chest: Clear to auscultation. Heart: S1, S2 regular. Abdomen: Soft, nontender. Extremities: Plus edema. Laboratory Data: Sodium 140, potassium 3.5, bicarb 28, BUN 35, creatinine 2.8, calcium 8.9, phosphorus 3.4. Current Medications: The patient is on include Lasix 60 mg b.i.d., amitriptyline, aspirin, fentanyl, gabapentin, isosorbide, Singulair, Bystolic. Assessment And Plan: 1. Chronic kidney disease stage 3B/4 secondary to cardiorenal. Normal volume. Currently I am going to continue Lasix 60. 2. Status post cardiac cath. with contrast-induced nephropathy. stable norml volume no heyper k 3. Hypertension, controlled on the current medication. 4. 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 Keep holding Norvasc. Continue current dose of Lasix. 5. Coronary artery disease status post cardiac cath. We will follow up with Cardiology. The patient is cleared from the renal standpoint for discharge planning to follow up in the office in 2 weeks with chemistry. PHILIP Voice ID: [id number] Report ID: [id number] MURALI
[2019-02-13 14:35] LABS: Vitamin D 1,25-Dihydroxy Total 24 pg/mL (18-72); Vitamin D,1,25-OH2, D2 <8 pg/mL
== END 2019-02-09 12:34 | disposition home or self-care (01) ==
LOC: CCL 08:30 → 4TH 12:06 → INTOOBSV 12:06
PROVIDERS: ADMIT Family Medicine; ATTEND Family Medicine
DX: I25.10 Atherosclerotic heart disease of native coronary artery without angina pectoris (principal); E78.2 Mixed hyperlipidemia; E11.40 Type 2 diabetes mellitus with diabetic neuropathy, unspecified; G89.29 Other chronic pain; E11.22 Type 2 diabetes mellitus with diabetic chronic kidney disease; I13.0 Hypertensive heart and chronic kidney disease with heart failure and stage 1 through stage 4 chronic kidney disease, or unspecified chronic kidney disease; N18.4 Chronic kidney disease, stage 4 (severe); I50.32 Chronic diastolic (congestive) heart failure; K21.9 Gastro-esophageal reflux disease without esophagitis; G25.81 Restless legs syndrome; Z79.82 Long term (current) use of aspirin; Z79.02 Long term (current) use of antithrombotics/antiplatelets; Z79.4 Long term (current) use of insulin; Z79.899 Other long term (current) drug therapy; Z87.891 Personal history of nicotine dependence; Z95.5 Presence of coronary angioplasty implant and graft; Z90.49 Acquired absence of other specified parts of digestive tract
CPT/HCPCS: 80048; 36415 ×2; 83735; 82550; 85610; 82565; 82962 ×10; 84520; 85730; 82652; 80069; 82553; 80053; 93458; 94660; G0379; C1893; J1644; J2250; J3010; J7030; G0378; 81003; 81015; J0583

== ENCOUNTER 2019-02-18 11:37 | Inpatient (IN) | payer OTHER ==
[2019-02-18 12:28] LABS: Absolute Lymphocytes (CBC) 1.9 K/uL (0.7-4.9); Absolute Monocytes 0.6 K/uL (0.1-1.3); Absolute Neutrophil 4.9 K/uL (1.8-8.0); Eosinophils % 3.2 % (0-4.4); Hematocrit 43.9 % (39.6-49.0); Lymphocytes % 24.8 % (15.3-44.8); MPV 9.8 fL (7.6-11.3); Monocytes % 7.8 % (3.3-12.3)
--- NOTE | 2019-02-18 12:53 | RAD REPORT ---
EXAM DESCRIPTION: US - Renal Ultrasound-Complete - 02/18/2019 12:46 pm CLINICAL HISTORY: acute failure Flank pain, renal failure. COMPARISON: Renal Ultrasound-Complete dated 07/01/2018 FINDINGS: Mild increased echogenicity is seen in the kidneys. The right kidney measures 12.0 x 6.1 x 5.6 cm. No hydronephrosis, focal mass or perinephric fluid. 3 cm benign right renal cyst. The left kidney measures 11.9 x 7.2 x 4.9 cm. No hydronephrosis, focal mass or perinephric fluid. The urinary bladder is incompletely distended without gross abnormality seen. IMPRESSION: Mild increased echogenicity involving the kidneys suggesting underlying medical renal di sease.
[2019-02-18 13:11] LABS: Potassium 3.9 mmol/L (3.5-5.1)
--- NOTE | 2019-02-18 13:25 | ER ---
Nurse's Notes [facility] Name: Larry Seth Jr Age: 64 yrs Sex: Male : 1955 Arrival Date: 02/18/2019 Time: 11:41 Bed 14 Private MD: Misael Charlton B Diagnosis: Acute kidney failure Presentation: 02/18 12:01 Risk Assessment: Do you want to hurt yourself or someone else? Patient reports no tw2 desire to harm self or others. Care prior to arrival: None. 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 Transition of care: patient was not received from another setting of care. Onset of symptoms was February 18, 2019. Initial Sepsis Screen: Does the patient meet any 2 criteria? No. Patient's initial sepsis screen is negative. Does the patient have a suspected source of infection? No. Patient's initial sepsis screen is negative. 12:02 Method Of Arrival: Ambulatory ph 12:02 Acuity: JUAN CARLOS 3 ph Historical: - Allergies: 12:06 Aleve; ph 12:06 Ceftin; ph 12:06 Codeine; ph 12:06 HYDROCODONE; ph 12:06 Tramadol HCl; ph 15:06 amlodipine; tw2 - Home Meds: 15:06 amitriptyline 25 mg Oral tab 1 tab once daily [Active]; aspirin 81 mg Oral TbEC 1 tab tw2 once daily [Active]; Bystolic 10 mg Oral tab 1 tab twice a day [Active]; duloxetine 60 mg Oral cpDR 1 cap once daily [Active]; furosemide 20 mg Oral tab 1 tab 3 times per day [Active]; isosorbide mononitrate 30 mg Oral Tb24 1 tab once daily [Active]; montelukast 10 mg Oral tab 1 tab once daily [Active]; Novolin R Sub-Q 30 units 3 times per day daily [Active]; Tresiba FlexTouch U-100 100 unit/mL (3 mL) subcutaneous inpn 75 Units daily [Active]; vitamin W20-aimdq acid 500-400 mcg Oral tab [Active]; Vascepa 1 gram Oral cap 2 caps 2 times per day [Active]; clopidogrel 75 mg oral tab 1 tab once daily [Active]; atorvastatin 80 mg oral tab 1 tab once daily [Active]; - PMHx: 12:06 Chronic pain; COPD; Diabetes - IDDM; GERD; Hypertension; restless leg syndrome; ph - PSHx: 12:06 BACK SURG; Cholecystectomy; Hernia repair; ph - Immunization history:: Adult Immunizations. - Social history:: Smoking status: . - Ebola Screening: : Patient denies travel to an Ebola-affected area in the 21 days before illness onset. Screenin:59 Abuse screen: Denies threats or abuse. Nutritional screening: No deficits noted. tw2 Tuberculosis screening: No symptoms or risk factors identified. Fall Risk Secondary diagnosis (15 points) impaired mobility. Assessment: 12:00 General: Appears in no apparent distress. obese, well groomed, Behavior is calm, tw2 cooperative, appropriate for age. Pain: Denies pain. Neuro: Level of Consciousness is awake, alert, obeys commands, Oriented to person, place, time, situation. Cardiovascular: Heart tones S1 S2 Capillary refill < 3 seconds Patient's skin is warm and dry. Respiratory: Airway is patent Respiratory effort is even, unlabored, Respiratory pattern is regular, symmetrical, Breath sounds are clear bilaterally. GI: Abdomen is round non-distended, obese, Bowel sounds present X 4 quads. : No signs and/or symptoms were reported regarding the genitourinary system. EENT: No signs and/or symptoms were reported regarding the EENT system. Derm: No signs and/or symptoms reported regarding the dermatologic system. Musculoskeletal: Range of motion: intact in all extremities. 12:39 Reassessment: Patient appears in no apparent distress at this time. No changes from tw2 previously documented assessment. Patient and/or family updated on plan of care and expected duration. Pain level reassessed. Patient is alert, oriented x 3, equal unlabored respirations, skin warm/dry/pink. 13:40 Reassessment: Patient appears in no apparent distress at this time. No changes from tw2 previously documented assessment. Patient and/or family updated on plan of care and expected duration. Pain level reassessed. Patient is alert, oriented x 3, equal unlabored respirations, skin warm/dry/pink. 15:09 Reassessment: Patient appears in no apparent distress at this time. No changes from tw2 previously documented assessment. Patient and/or family updated on plan of care and expected duration. Pain level reassessed. Patient is alert, oriented x 3, equal unlabored respirations, skin warm/dry/pink. Vital Signs: 12:05 BP 139 / 84; Pulse 63; Resp 18; Temp 98.2; Pulse Ox 99% on R/A; Weight 148.78 kg; Pain ph 5/10; 12:39 BP 122 / 79; Pulse 59; Resp 17; Pulse Ox 97% on R/A; tw2 13:40 BP 140 / 89; Pulse 58; Resp 17; Pulse Ox 100% on R/A; tw2 14:40 BP 137 / 77; Pulse 57; Resp 17; Pulse Ox 100% on R/A; tw2 15:08 BP 134 / 75; Pulse 56; Resp 17; Pulse Ox 100% on R/A; tw2 ED Course: 11:41 Patient arrived in ED. mr 11:41 Misael Charlton MD is Private Physician. mr 11:56 [facility] jr[facility] 11:56 Juan Thomason MD is Attending Physician. jr8 11:59 Caroline Fairchild, CARI is Primary Nurse. tw2 12:01 Arm band placed on. tw2 12:01 Bed in low position. Call light in reach. Adult w/ patient. radiation monitor on. Pulse tw2 ox on. NIBP on. 12:05 Triage completed. ph 12:17 Inserted saline lock: 20 gauge in right antecubital area, using aseptic technique. tw2 Blood collected. 12:47 US Rp Exam Complete In Process Unspecified. EDMS 13:23 Julio César Mrianda MD is Hospitalizing Provider. jr8 16:17 Patient admitted, IV remains in place. tw2 16:53 No provider procedures requiring assistance completed. tw2 Administered Medications: 13:25 Drug: NS 0.9% 500 ml Route: IV; Rate: bolus; Site: right antecubital; tw2 14:02 Follow up: Response: No adverse reaction; IV Status: Completed infusion; IV Intake: tw2 500ml 13:49 Drug: NS 0.9% 1000 ml Route: IV; Rate: 75 ml/hr; Site: right antecubital; tw2 16:50 Follow up: IV Status: Infusion continued upon admission tw2 Intake: 14:02 IV: 500ml; Total: 500ml. tw2 Outcome: 13:24 Decision to Hospitalize by Provider. katie 16:16 Admitted to Med/surg accompanied by tech, via wheelchair, room 410, with chart, Report tw2 called to CARI Hernandez 16:54 Condition: stable tw2 16:54 Patient left the ED. tw2 Signatures: Dispatcher [employer] EDNM GannonMariangel, Emir, HAYLEY HARDY jrPalmira Horton, RN RN Caroline Fairchild RN RN tw2
--- NOTE | 2019-02-18 13:26 | EDPHYS ---
Physician Documentation [facility] Name: Larry Seth Jr Age: 64 yrs Sex: Male : 1955 Arrival Date: 02/18/2019 Time: 11:41 Bed 14 Private MD: Misael Charlton B ED Physician Juan Thomason HPI: 02/18 13:10 This 64 yrs old Male presents to ER via Ambulatory with complaints of jr8 Abnormal Lab Results. 13:10 Patient sent over by manufacturing industrial engineer for acute change in kidney function. Has history of jr8 CKD but much worse. Recently released from hospital after having cardiac catheterization. Utilized iodine contrast during that study. Complains of mild nausea and fatigue. Denies any other symptoms . Severity of symptoms: At their worst the symptoms were moderate. The patient has not experienced similar symptoms in the past. The patient has been recently seen by a physician:. Historical: - Allergies: 12:06 Aleve; ph 12:06 Ceftin; ph 12:06 Codeine; ph 12:06 HYDROCODONE; ph 12:06 Tramadol HCl; ph 15:06 amlodipine; tw2 - Home Meds: 15:06 amitriptyline 25 mg Oral tab 1 tab once daily [Active]; aspirin 81 mg Oral TbEC 1 tab tw2 once daily [Active]; Bystolic 10 mg Oral tab 1 tab twice a day [Active]; duloxetine 60 mg Oral cpDR 1 cap once daily [Active]; furosemide 20 mg Oral tab 1 tab 3 times per day [Active]; isosorbide mononitrate 30 mg Oral Tb24 1 tab once daily [Active]; montelukast 10 mg Oral tab 1 tab once daily [Active]; Novolin R Sub-Q 30 units 3 times per day daily [Active]; Tresiba FlexTouch U-100 100 unit/mL (3 mL) subcutaneous inpn 75 Units daily [Active]; vitamin M14-hrtpj acid 500-400 mcg Oral tab [Active]; Vascepa 1 gram Oral cap 2 caps 2 times per day [Active]; clopidogrel 75 mg oral tab 1 tab once daily [Active]; atorvastatin 80 mg oral tab 1 tab once daily [Active]; - PMHx: 12:06 Chronic pain; COPD; Diabetes - IDDM; GERD; Hypertension; restless leg syndrome; ph - PSHx: 12:06 BACK SURG; Cholecystectomy; Hernia repair; ph - Immunization history:: Adult Immunizations. - Social history:: Smoking status: . - Ebola Screening: : Patient denies travel to an Ebola-affected area in the 21 days before illness onset. ROS: 13:10 Eyes: Negative for injury, pain, redness, and discharge, ENT: Negative for injury, jr8 pain, and discharge, Neck: Negative for injury, pain, and swelling, Cardiovascular: Negative for chest pain, palpitations, and edema, Respiratory: Negative for shortness of breath, cough, wheezing, and pleuritic chest pain, Back: Negative for injury and pain, MS/Extremity: Negative for injury and deformity, Skin: Negative for injury, rash, and discoloration, Neuro: Negative for headache, weakness, numbness, tingling, and seizure. 13:10 Constitutional: Positive for fatigue. 13:10 Abdomen/GI: Positive for nausea, Negative for abdominal pain, diarrhea, constipation, abdominal cramps, abdominal distension, anorexia, dysphagia, hematemesis, black/tarry stool, rectal pain, rectal bleeding, bowel incontinence, flatulence. Exam: 13:10 Eyes: Pupils equal round and reactive to light, extra-ocular motions intact. Lids and jr8 lashes normal. Conjunctiva and sclera are non-icteric and not injected. Cornea within normal limits. Periorbital areas with no swelling, redness, or edema. ENT: Nares patent. No nasal discharge, no septal abnormalities noted. Tympanic membranes are normal and external auditory canals are clear. Oropharynx with no redness, swelling, or masses, exudates, or evidence of obstruction, uvula midline. Mucous membranes moist. Neck: Trachea midline, no thyromegaly or masses palpated, and no cervical lymphadenopathy. Supple, full range of motion without nuchal rigidity, or vertebral point tenderness. No Meningismus. Cardiovascular: Regular rate and rhythm with a normal S1 and S2. No gallops, murmurs, or rubs. Normal PMI, no JVD. No pulse deficits. Respiratory: Lungs have equal breath sounds bilaterally, clear to auscultation and percussion. No rales, rhonchi or wheezes noted. No increased work of breathing, no retractions or nasal flaring. Abdomen/GI: Soft, non-tender, with normal bowel sounds. No distension or tympany. No guarding or rebound. No evidence of tenderness throughout. Back: No spinal tenderness. No costovertebral tenderness. Full range of motion. Skin: Warm, dry with normal turgor. Normal color with no rashes, no lesions, and no evidence of cellulitis. MS/ Extremity: Pulses equal, no cyanosis. Neurovascular intact. Full, normal range of motion. Neuro: Awake and alert, GCS 15, oriented to person, place, time, and situation. Cranial nerves II-XII grossly intact. Motor strength 5/5 in all extremities. Sensory grossly intact. Cerebellar exam normal. Normal gait. Vital Signs: 12:05 BP 139 / 84; Pulse 63; Resp 18; Temp 98.2; Pulse Ox 99% on R/A; Weight 148.78 kg; Pain ph 5/10; 12:39 BP 122 / 79; Pulse 59; Resp 17; Pulse Ox 97% on R/A; tw2 13:40 BP 140 / 89; Pulse 58; Resp 17; Pulse Ox 100% on R/A; tw2 14:40 BP 137 / 77; Pulse 57; Resp 17; Pulse Ox 100% on R/A; tw2 15:08 BP 134 / 75; Pulse 56; Resp 17; Pulse Ox 100% on R/A; tw2 MDM: 11:56 Patient medically screened. [facility] 13:23 Data reviewed: vital signs, nurses notes, lab test result(s), radiologic studies, [facility] ultrasound. Data interpreted: Pulse oximetry: on room air is 97 %. Interpretation: normal. Counseling: I had a detailed discussion with the patient and/or guardian regarding: the historical points, exam findings, and any diagnostic results supporting the discharge/admit diagnosis, lab results, radiology results, the need for further work-up and treatment in the hospital. Physician consultation: Julio César Miranda MD was called at 13:23, was contacted at 13:23, regarding admission, to the medical/surgical unit. consult, patient's condition, and will see patient. 02/18 12:04 Order name: CBC with Diff; Complete Time: 12:49 [facility] 02/18 12:04 Order name: Basic Metabolic Panel; Complete Time: 13:16 [facility] 02/18 12:04 Order name: US Rp Exam Complete; Complete Time: 12:55 [facility] 02/18 13:37 Order name: Urine Dipstick--Ancillary (enter results); Complete Time: 14:04 02/18 12:04 Order name: IV; Complete Time: 12:18 [facility] 02/18 12:04 Order name: Urine Dipstick-Ancillary (obtain specimen); Complete Time: 13:53 [facility] 02/18 14:03 Order name: Diet Heart Healthy; Complete Time: 14:04 tw2 Administered Medications: 13:25 Drug: NS 0.9% 500 ml Route: IV; Rate: bolus; Site: right antecubital; tw2 14:02 Follow up: Response: No adverse reaction; IV Status: Completed infusion; IV Intake: tw2 500ml 13:49 Drug: NS 0.9% 1000 ml Route: IV; Rate: 75 ml/hr; Site: right antecubital; tw2 16:50 Follow up: IV Status: Infusion continued upon admission tw2 Disposition: 02/18/19 13:24 Hospitalization ordered by Julio César Miranda for Inpatient Admission. Preliminary diagnosis is Acute kidney failure. - Bed requested for Telemetry/MedSurg (Inpatient). - Status is Inpatient Admission. tw2 - Condition is Stable. - Problem is new. - Symptoms are unchanged. UTI on Admission? No Addendum: 02/22/2019 08:23 Co-signature as Attending Physician, Juan Thomason MD I agree with the assessment and c armendariz plan of care. Signatures: Dispatcher [facility] Madie Garcia RN RN dw Anderson, Corey, MD MD cha Roszak, Josh, PA PA jr8 Palmira Garcia RN RN Caroline Fairchild RN RN tw2 Corrections: (The following items were deleted from the chart) 02/18 16:01 13:24 Hospitalization Ordered by Julio César Miranda MD for Inpatient Admission. Preliminary diagnosis is Acute kidney failure. Bed requested for Telemetry/MedSurg (Inpatient). Status is Inpatient Admission. Condition is Stable. Problem is new. Symptoms are unchanged. UTI on Admission? No. jr8 16:54 16:01 02/18/2019 13:24 Hospitalization Ordered by Julio César Miranda MD for Inpatient tw2 Admission. Preliminary diagnosis is Acute kidney failure. Bed requested for Telemetry/MedSurg (Inpatient). Status is Inpatient Admission. Condition is Stable. Problem is new. Symptoms are unchanged. UTI on Admission? No. dw
[2019-02-18] MEDS ORDERED: NA CHLORIDE 0.9% 1,000 ML ONE (13:36)
[2019-02-18 13:41] LABS: Urine Blood TRACE (NEG); Urine Glucose NEGATIVE (NEG); Urine Protein 3+ (NEG); Urine Specific Gravity 1.015 (1.005-1.030); Urine pH 5.5 (5.0-7.0)
--- NOTE | 2019-02-18 16:19 | P.CNS ---
Date of Consult: 02/18/19 Reason for Consult: BHAVNA Chief Complaint: Abnormal labs History of Present Illness: A 64 Y/Alex with PMhx of CKD IV , DM , HTN , HLD and EDITA pt was discharged recently after cardiac cath was admitted on 02/07 for elective cardiac cath cr 2.6 on discharge Cr 2.7 lasix dose increased on discharge , denied NSAID intake or change in meds had nausea in the last 2 days but no vomiting, no fever , chills , chest pain or palpitation Allergies cefuroxime [From Ceftin] Allergy (Verified 08/31/16 22:54) Itching/Hives/Rash latex Allergy (Verified 09/03/16 13:12) Hives naproxen [From Aleve] Allergy (Verified 08/31/16 22:54) Itching Sulfa (Sulfonamide Antibiotics) Allergy (Verified 02/07/19 09:55) Hives codeine Adverse Reaction (Verified 08/31/16 22:54) Nausea/Vomiting hydrocodone Adverse Reaction (Verified 08/31/16 22:54) Nausea/Vomiting tramadol Adverse Reaction (Verified 08/31/16 22:54) Nausea/Vomiting Home Medications: Amitriptyline [Elavil*] 25 mg PO BEDTIME 09/01/16 Aspirin [Arjun Chewable Aspirin] 81 mg PO DAILY 09/01/16 Duloxetine HCl 60 mg PO DAILY 09/01/16 Furosemide 80 mg PO DAILY 09/01/16 Insulin Regular, Human [Humulin R U-500 Kwikpen] 30 unit SQ AC 09/01/16 Isosorbide Mononitrate [Isosorbide Mononitrate ER] 30 mg PO DAILY AFTER SUPPER 09/01/16 Icosapent Ethyl [Vascepa] 2 cap PO BID 10/02/18 Insulin Degludec [Tresiba Flextouch U-100] 75 units SQ DAILY 10/02/18 Montelukast [Singulair*] 10 mg PO BEDTIME 10/02/18 Nebivolol HCl [Bystolic*] 10 mg PO BID 10/02/18 Atorvastatin Calcium [Lipitor] 80 mg PO BEDTIME #30 tab 10/06/18 Clopidogrel Bisulfate [Plavix*] 75 mg PO DAILY #30 tablet 10/06/18 Acetaminophen/Chlorpheniramine [Coricidin Hbp Cold & Flu Tab] 1 tab PO BEDTIME 02/07/19 Cyanocobalamin (Vitamin B-12) [Vitamin B12] 1 tab PO DAILY 02/07/19 Gabapentin 600 mg PO BEDTIME 02/07/19 - Past Medical/Surgical History Diabetic: Yes -: Asbestosis -: Diabetes mellitus type 2, insulin dependent -: GERD -: Restless leg syndrome -: Chronic pain neck, arms, shoulder, back -: HTN -: Neuropathy -: Chronic kidney disease, stage IV -: Hyperlipidemia -: Former tobacco use -: Back sx x2 -: Cholecystectomy -: Hernia repair -: Heart catheterization, stent placement Psychosocial/ Personal History: Patient is - Social History Alcohol use: No CD- Drugs: No Caffeine use: Yes Physical Examination General: In no apparent distress, Oriented x3 HEENT: Atraumatic Neck: Supple, Without JVD or thyroid abnormality Respiratory: Clear to auscultation bilaterally, Normal air movement Cardiovascular: No edema, Regular rate/rhythm, Normal S1 S2, No gallops, No rubs , No murmurs Laboratory Data (last 24 hrs) 02/18/19 12:17: Sodium 137, Potassium 3.9, BUN 76 H, Creatinine 6.70 H*, Glucose 215 H 02/18/19 12:17: WBC 7.8, Hgb 15.2, Hct 43.9, Plt Count 190 - Problems (1) BHAVNA (acute kidney injury) Current Visit: Yes Status: Acute Conclusions/Impression: BHAVNA on CKD possibly due to contrast induced nephropathy vs pre-renal azotemia, though Cr was stable 2 days after contrast exposure US no hydro gentle hydration UA showed RBCs will send for full serology w/u temp catheter tomorrow and HD if no improvement might consider renal biopsy if stable if no improvement HTN resume home meds hold lasix and norvasc CAD S/P cardiac cath on 02/07
[2019-02-18] MEDS ORDERED: ONDANSETRON 4 MG/2 ML VIAL IV PRN (16:45)
[2019-02-18] MEDS ORDERED: NA CHLORIDE 0.9% 1,000 ML IV SCH (16:45)
[2019-02-18] MEDS: HEPARIN 5000 UNIT/ML 1 ML VIAL SQ SCH (17:00)
--- NOTE | 2019-02-18 18:58 | P.HP ---
Certification for Inpatient Patient admitted to: Inpatient Practitioner: I am a practitioner with admitting privileges, knowledge of patient current condition, hospital course, and medical plan of care. Services: Services provided to patient in accordance with Admission requirements found in Title 42 Section 412.3 of the Code of Federal Regulations Patient History Date of Service: 02/18/19 Reason for admission: Abnormal labs History of Present Illness: This is a 64-year-old man with a history of CKD stage 4, diabetes mellitus, insulin-dependent, hypertension, hyperlipidemia, CAD with recent catheterization and EDITA admitted for acute kidney failure. Patient was recently discharged on 02/07 after a cardiac catheterization. At discharge, patient's creatinine was 2.4. The patient had a follow up in 2 weeks with Nephrology, did blood work yesterday and was found to have creatinine of 5.8 and was told to come to the ER. Patient states that he has been feeling some nausea, otherwise has been asymptomatic. Denies any chest pain, shortness of breath, headache, vision changes, lightheadedness, syncopal/presyncopal episodes , GI or complaints. In the ER, he was hemodynamically stable. His labs were remarkable for creatinine was 6.7, otherwise his labs were normal. At the time of my exam, he was alert oriented x3, in no acute distress and hemodynamically stable. He was admitted as inpatient for the creatinine is greater than 4, along with increasing creatinine from 2.4-6 point need in the span of 10 days. Allergies cefuroxime [From Ceftin] Allergy (Verified 08/31/16 22:54) Itching/Hives/Rash latex Allergy (Verified 09/03/16 13:12) Hives naproxen [From Aleve] Allergy (Verified 08/31/16 22:54) Itching Sulfa (Sulfonamide Antibiotics) Allergy (Verified 02/07/19 09:55) Hives amlodipine Adverse Reaction (Verified 02/18/19 17:25) Shortness of breath codeine Adverse Reaction (Verified 08/31/16 22:54) Nausea/Vomiting hydrocodone Adverse Reaction (Verified 08/31/16 22:54) Nausea/Vomiting tramadol Adverse Reaction (Verified 08/31/16 22:54) Nausea/Vomiting Home medications list reviewed: Yes Home Medications: Amitriptyline [Elavil*] 25 mg PO BEDTIME 09/01/16 Aspirin [Arjun Chewable Aspirin] 81 mg PO DAILY 09/01/16 Duloxetine HCl 60 mg PO DAILY 09/01/16 Furosemide 60 mg PO DAILY 09/01/16 Insulin Regular, Human [Humulin R U-500 Kwikpen] 30 unit SQ AC 09/01/16 Isosorbide Mononitrate [Isosorbide Mononitrate ER] 30 mg PO DAILY AFTER SUPPER 09/01/16 Icosapent Ethyl [Vascepa] 2 cap PO BID 10/02/18 Insulin Degludec [Tresiba Flextouch U-100] 75 units SQ DAILY 10/02/18 Montelukast [Singulair*] 10 mg PO BEDTIME 10/02/18 Nebivolol HCl [Bystolic*] 10 mg PO BID 10/02/18 Atorvastatin Calcium [Lipitor] 80 mg PO BEDTIME #30 tab 10/06/18 Clopidogrel Bisulfate [Plavix*] 75 mg PO DAILY #30 tablet 10/06/18 Acetaminophen/Chlorpheniramine [Coricidin Hbp Cold & Flu Tab] 1 tab PO BEDTIME 02/07/19 Cyanocobalamin (Vitamin B-12) [Vitamin B12] 1 tab PO DAILY 02/07/19 Gabapentin 600 mg PO BEDTIME 02/07/19 - Past Medical/Surgical History Has patient received pneumonia vaccine in the past: Yes Diabetic: Yes -: Asbestosis -: Diabetes mellitus type 2, insulin dependent -: GERD -: Restless leg syndrome -: Chronic pain neck, arms, shoulder, back -: HTN -: Neuropathy -: Chronic kidney disease, stage IV -: Hyperlipidemia -: Former tobacco use -: Back sx x2 -: Cholecystectomy -: Hernia repair -: Heart catheterization, stent placement Psychosocial/ Personal History: Patient is - Social History Smoking Status: Never smoker Alcohol use: No CD- Drugs: No Caffeine use: Yes Place of Residence: Home Review of Systems 10-point ROS is otherwise unremarkable Physical Examination - Vital Signs Temperature: 97.2 F Blood Pressure: 134/69 Pulse: 58 Respirations: 19 Pulse Ox (%): 99 - Physical Exam General: Alert, In no apparent distress, Oriented x3 HEENT: Atraumatic, PERRLA, Mucous membr. moist/pink, EOMI, Sclerae nonicteric Neck: Supple, 2+ carotid pulse no bruit, No LAD, Without JVD or thyroid abnormality Respiratory: Clear to auscultation bilaterally, Normal air movement Cardiovascular: Regular rate/rhythm, Normal S1 S2 Gastrointestinal: Normal bowel sounds, No tenderness Musculoskeletal: No tenderness Integumentary: No rashes Neurological: Normal gait, Normal speech, Normal strength at 5/5 x4 extr, Normal tone, Normal affect Lymphatics: No axilla or inguinal lymphadenopathy - Studies Laboratory Data (last 24 hrs) 02/18/19 12:17: Sodium 137, Potassium 3.9, BUN 76 H, Creatinine 6.70 H*, Glucose 215 H 02/18/19 12:17: WBC 7.8, Hgb 15.2, Hct 43.9, Plt Count 190 Assessment and Plan - Problems (Diagnosis) (1) BHAVNA (acute kidney injury) Current Visit: Yes Status: Acute Plan: Likely secondary to contrast induced nephropathy versus pre renal azotemia. -It seems to me to contrast induced nephropathy is less likely as patient is to creatinine was normal 2 days post cardiac catheterization. -Nephrology consulted, recommendations appreciated. -Possibility of a temp access placement for temporary dialysis. Will consult general surgery. -Monitor via labs tomorrow morning. -gentle hydration -Hold Lasix and amlodipine at this time. (2) Chronic kidney disease (CKD) Onset Date: 10/04/18 Current Visit: Yes Status: Chronic Qualifiers: Chronic kidney disease stage: stage 4 (severe) Qualified Code(s): N18.4 - Chronic kidney disease, stage 4 (severe) (3) CAD (coronary artery disease) Current Visit: No Status: Chronic Plan: Stable Qualifiers: Coronary Disease-Associated Artery/Lesion type: [place] artery [place] vs. transplanted heart: [place] heart Associated angina: without angina Qualified Code(s): I25.10 - Atherosclerotic heart disease of [place] coronary artery without angina pectoris (4) Diabetes mellitus Current Visit: Yes Status: Acute Plan: Accu-Cheks and mild sliding scale insulin at this time. Qualifiers: Diabetes mellitus type: type 2 Diabetes mellitus alf insulin use: with grocery associate use Diabetes mellitus complication status: with kidney complications Diabetes mellitus complication detail: with chronic kidney disease Chronic kidney disease stage: stage 4 (severe) Qualified Code(s): E11.22 - Type 2 diabetes mellitus with diabetic chronic kidney disease; N18.4 - Chronic kidney disease, stage 4 (severe); Z79.4 - terminal clerk (current) use of insulin (5) Hyperlipidemia Current Visit: No Status: Chronic Plan: Stable, continue home medications Qualifiers: Hyperlipidemia type: unspecified Qualified Code(s): E78.5 - Hyperlipidemia , unspecified (6) Hypertension Current Visit: No Status: Chronic Qualifiers: Hypertension type: essential hypertension - Plan DVT prophylaxis: Hold at this time for possible catheter placement tomorrow GI prophylaxis: None Diet: Renal Disposition: Admit to the floor. Pending renal workup, possible temp dialysis. - Advance Directives Does patient have a Living Will: Yes Does patient have a Durable POA for Healthcare: No
[2019-02-18] MEDS: NA CHLORIDE 0.9% 1,000 ML IV SCH (20:24)
[2019-02-18] MEDS ORDERED: D50W 25 GM/50 ML SYRINGE IV PRN (20:47)
[2019-02-18] MEDS ORDERED: GLUCAGON 1 MG/VIAL IM PRN (20:47)
[2019-02-18] MEDS: INSULIN GLARGINE 100 UNITS/ML SQ SCH (21:00)
[2019-02-18] MEDS: ATORVASTATIN 80 MG TAB PO SCH (21:00)
[2019-02-18] MEDS: ICOSAPENT ETHYL 1 GM CAP PO SCH (21:00)
[2019-02-18] MEDS: NEBIVOLOL HCL 5 MG TAB PO SCH (21:33)
[2019-02-18] MEDS: AMITRIPTYLINE 25 MG TAB PO SCH (21:34)
[2019-02-18] MEDS: GABAPENTIN 300 MG CAP PO SCH (21:34)
[2019-02-18] MEDS: MONTELUKAST 10 MG TAB PO SCH (21:35)
[2019-02-18 22:13] LABS: Urine Appearance CLEAR; Urine Bilirubin NEGATIVE (NEG); Urine Blood NEGATIVE (NEG); Urine Color YELLOW; Urine Glucose NEGATIVE (NEG); Urine Protein 2+ (NEG); Urine Urobilinogen 0.2 mg/dL (0.2-1.0); Urine pH 5.5 (5.0-7.0)
[2019-02-18 22:15] LABS: Urine Microscopic Reflex ORDER UMIC
[2019-02-18 22:18] LABS: Urine Protein/Creatinine Ratio 1.64 ratio (<0.15)
[2019-02-18 22:22] LABS: Urine Bacteria <20 /HPF (NONE SEEN); Urine Culture Reflex Order NOT NEEDED; Urine RBC NONE SEEN /HPF (NONE SEEN)
[2019-02-19] MEDS: HEPARIN 5000 UNIT/ML 1 ML VIAL SQ SCH ×3 (00:17→16:43)
[2019-02-19 06:31] LABS: Absolute Lymphocytes (CBC) 1.9 K/uL (0.7-4.9); Absolute Monocytes 0.6 K/uL (0.1-1.3); Basophils % 0.6 % (0-1.3); Eosinophils % 3.9 % (0-4.4); Hematocrit 47.5 % (39.6-49.0); Lymphocytes % 24.6 % (15.3-44.8); MPV 9.3 fL (7.6-11.3); RBC Red Blood Cell Count 5.08 M/uL (4.33-5.43)
[2019-02-19 07:09] LABS: Bilirubin Total 0.6 mg/dL (0.2-1.0); Potassium 3.8 mmol/L (3.5-5.1); Protein, Total 8.1 g/dL (6.4-8.2)
[2019-02-19 07:17] LABS: Ferritin 328.7 ng/mL (26-388); Folic Acid, (Folate) > 20.0 ng/mL (3.1-17.5); Phosphorus 5.4 mg/dL (2.5-4.9); Transferrin 220 mg/dL (200-360); Uric Acid 10.6 mg/dL (3.5-7.2)
[2019-02-19] MEDS: ASPIRIN 81 MG CHEWABLE TABLET PO SCH (08:42)
[2019-02-19] MEDS: FUROSEMIDE 20 MG TABLET PO SCH (08:43)
[2019-02-19] MEDS: HOME MED 1 EA UNK (Cyanocobalamin (Vitamin B-12) [Vitamin B12] 1 TAB) PO SCH (08:43)
[2019-02-19] MEDS: DULOXETINE 30 MG CAP PO SCH (08:43)
[2019-02-19] MEDS: CLOPIDOGREL 75 MG TABLET PO SCH (08:44)
[2019-02-19] MEDS: ICOSAPENT ETHYL 1 GM CAP PO SCH ×2 (08:45→21:17)
[2019-02-19] MEDS: NEBIVOLOL HCL 5 MG TAB PO SCH ×2 (08:50→21:17)
[2019-02-19] MEDS: NA CHLORIDE 0.9% 1,000 ML IV SCH ×2 (09:20→21:20)
[2019-02-19] MEDS ORDERED: LIDOCAINE 1% 20 ML MDV IV ONE (09:41)
--- NOTE | 2019-02-19 11:04 | P.OP ---
Preoperative diagnosis: Acute Renal Failure Postoperative diagnosis: Acute Renal Failure Primary procedure: Placement of Right Femoral Temporary Hemodialysis Catheter Secondary procedure: Micro introducer set used Anesthesia: Local 1% lidocaine Estimated blood loss: <5cc Specimen: None Findings: Dark Red Non-pulsatile blood returned Complications: None Implants: Temporary Hemodialysis Catheter Transferred to: Other (room) Condition: Good
--- NOTE | 2019-02-19 13:36 | P.PN ---
Subjective Date of Service: 02/19/19 Chief Complaint: Abnormal labs Patient seen and examined at bedside. family at bedside. Chart reviewed and case discussed with nursing staff. No acute events noted overnight. He is now status post placement of temporary dialysis catheter, right femoral. He denies any complaints or concerns this morning Review of Systems 10-point ROS is otherwise unremarkable Physical Examination - Vital Signs Temperature: 97.4 F Blood Pressure: 161/91 Pulse: 51 Respirations: 16 Pulse Ox (%): 100 - Physical Exam General: Alert, In no apparent distress, Oriented x3, Obese HEENT: Atraumatic, PERRLA, EOMI Neck: Supple, JVD not distended Respiratory: Clear to auscultation bilaterally, Normal air movement Cardiovascular: Regular rate/rhythm, Normal S1 S2 Gastrointestinal: Normal bowel sounds, No tenderness Musculoskeletal: No tenderness Integumentary: No rashes Neurological: Normal speech, Normal tone, Normal affect Lymphatics: No axilla or inguinal lymphadenopathy Assessment And Plan - Current Problems (Diagnosis) (1) BHAVNA (acute kidney injury) Current Visit: Yes Status: Acute Plan: Likely secondary to contrast induced nephropathy versus pre renal azotemia. -It seems to me to contrast induced nephropathy is less likely as patient is to creatinine was normal 2 days post cardiac catheterization. -Nephrology consulted, recommendations appreciated. Pending dialysis today. -he is status post temporary right femoral catheter placement. Appreciate Dr. Cornell's help. -gentle hydration -Hold Lasix and amlodipine at this time. (2) Chronic kidney disease (CKD) Onset Date: 10/04/18 Current Visit: Yes Status: Chronic Qualifiers: Chronic kidney disease stage: stage 4 (severe) Qualified Code(s): N18.4 - Chronic kidney disease, stage 4 (severe) (3) CAD (coronary artery disease) Current Visit: No Status: Chronic Plan: Stable Qualifiers: Coronary Disease-Associated Artery/Lesion type: [place] artery [place] vs. transplanted heart: [place] heart Associated angina: without angina Qualified Code(s): I25.10 - Atherosclerotic heart disease of [place] coronary artery without angina pectoris (4) Diabetes mellitus Current Visit: Yes Status: Acute Plan: Accu-Cheks and mild sliding scale insulin at this time. Qualifiers: Diabetes mellitus type: type 2 Diabetes mellitus rn long term care insulin use: with rn long term care use Diabetes mellitus complication status: with kidney complications Diabetes mellitus complication detail: with chronic kidney disease Chronic kidney disease stage: stage 4 (severe) Qualified Code(s): E11.22 - Type 2 diabetes mellitus with diabetic chronic kidney disease; N18.4 - Chronic kidney disease, stage 4 (severe); Z79.4 - manager long term care (current) use of insulin (5) Hyperlipidemia Current Visit: No Status: Chronic Plan: Stable, continue home medications Qualifiers: Hyperlipidemia type: unspecified Qualified Code(s): E78.5 - Hyperlipidemia , unspecified (6) Hypertension Current Visit: No Status: Chronic Qualifiers: Hypertension type: essential hypertension - Plan DVT prophylaxis: Will start heparin GI prophylaxis: None Diet: Renal Disposition: Pending renal workup, and temp dialysis.
--- NOTE | 2019-02-19 13:54 | CON ---
Date of Consultation: 02/19/2019 Brief History Of Present Illness: The patient is a 64-year-old male with history of CKD st age 6; diabetes, insulin dependent; hypertension; hyperlipidemia; coronary disease, recent catheteriz ation at outside hospital; admitted with acute on chronic kidney failure. He was discharged on 02/07 after a cardiac catheterization. His creatinine was 2.4 at that time. He had followup and his crea tinine was found to be 5.8. He has came to the ER with the above stated issue. Past Medical History: Significant for asbestosis; diabetes, insulin-dependent; GERD; restless legs s yndrome; chronic pain in the neck, arm, shoulder, back; hypertension; neuropathy; CKD stage 4; hyperl ipidemia; tobacco abuse history. Past Surgical History: Includes cholecystectomy, back surgery, hernia repair, heart catheterization with stent placement. Social History: He is . Denies current tobacco usage or alcohol usage. Allergies: HE IS ALLERGIC TO CEFTIN/CEFUROXIME, LATEX, NAPROSYN, SULFA, AMLODIPINE, CODEINE, HYDROCO DONE, AND TRAMADOL. Home Medications: Include Elavil, aspirin, duloxetine, Lasix, insulin, isosorbide mononitrate, Vasce pa, Tresiba, Singulair, Bystolic, Lipitor, Plavix, chlorpheniramine, vitamin B12, cyanocobalamin, and gabapentin. Review of Systems: A 10-point review of systems other than HPI, denies, other than fatigue. Physical Examination: Vital Signs: At the time of my examination, his BMI is 41, blood pressure 154/88, pulse is 55, respi ratory rate 16, and temperature 97.0. General: He is awake, alert, oriented. Psychiatric: He is appropriate and conversive. HEENT: He is normocephalic. Sclerae icteric. Mucous membranes are moist. Oropharynx clear. Neck: Supple. No JVD. Chest: Normal expansion and excursion. Cardiovascular: Regular rhythm. Pulmonary: Clear to auscultation bilaterally. Abdomen: Soft, nontender, nondistended. No rebound. No guarding. No peritoneal signs. Extremities: No clubbing, cyanosis, edema. Skin: Warm and dry. Laboratory Data: Reveals a white blood count of 7.9, hemoglobin is 6.2, hematocrit 47.5, platelet co unt is 180. Sodium 139, potassium 3.8, chloride 106, carbon dioxide 24, BUN 73, creatinine 6.7, gluc ose is 180. His uric acid is 10.6, calcium is 8.2, phos is 5.4, AST 32, ALT 61, alkaline phosphatase 135. His PTH is 292. UA was performed. He had imaging which included a renal ultrasound on 02/18, which was officially read as mild increased echogenicity involving the kidney suggesting underlying medical renal disease. Assessment And Plan: This is a 64-year-old male with acute on chronic kidney dysfunction, requiring a temporary around of hemodialysis to see if we can restore kidney function prior to any initiation o f long-term hemodialysis. 1.Continue medical management per Nephrology Team as well as primary medical team. 2.I have explained the risks, benefits, and alternatives of placement of a temporary hemodialysis ca theter including but not limited to bleeding, infection, damage surrounding tissue, need further oper ative procedures, blood clots. The patient agrees to proceed as indicated. Thank you for this interesting consult. GAVINO/SAURABH Voice ID: [id number] Report ID: [id number]
--- NOTE | 2019-02-19 14:18 | OP ---
Date of Procedure: 02/19/2019 Surgeon: Jonathan Cornell MD, Preoperative Diagnosis: Acute on chronic renal failure. Postoperative Diagnosis: Acute on chronic renal failure. Procedures Performed: 1.Placement of a right femoral temporary hemodialysis catheter. 2.Microintroducer set was used. Anesthesia: Local 1% lidocaine without epinephrine. Estimated Blood Loss: Less than 5 cc. Specimen: None. Findings: Dark red nonpulsatile blood return. Complications: None. Implants: A Mahurkar temporary hemodialysis catheter. Disposition: The patient remained in room in good condition throughout the procedure. Procedure In Detail: After informed consent was obtained, the patient was prepped and draped in the usual sterile fashion, after adequate anesthesia was achieved, an area of the right femoral artery wa s palpated. The right femoral vein was located by anatomic landmarks. This area was anesthetized wi th 1% lidocaine without epinephrine. A finder needle was used to cannulate the right femoral vein on first attempt with a microintroducer set. A small puncture was made after the micro wire was advanc ed in through the finder needle and the needle was removed. Using Seldinger technique, I placed an i ntroducer sheath over the micro wire, and the micro wire out was called at this time. The inner rodrigues th was removed and the standard wire was placed through the microintroducer sheath at this time, only dark red nonpulsatile blood was returned and the micro sheath was removed. Sequential dilatation wa s performed and the catheter was placed in using Seldinger technique over the wire. The wire out was called once again for the second time using the standard wire. Dark red nonpulsatile blood was retu rned and withdrew dark red nonpulsatile blood and flushed quite easily. It was then packed with hepa rin at the end of the procedure and caps were placed. The catheter was then secured to the skin incl uding nylon suture and the area was once again cleansed and a sterile dressing was placed over top. The patient tolerated the procedure well without evidence of complication, remained in the room throu ghout the procedure. All counts were correct at the end of the case. GAVINO/SAURABH Voice ID: [id number] Report ID: [id number]
[2019-02-19] MEDS: ISOSORBIDE MONO SR 30 MG TAB PO SCH (16:43)
[2019-02-19] MEDS: AMITRIPTYLINE 25 MG TAB PO SCH (21:16)
[2019-02-19] MEDS: ATORVASTATIN 80 MG TAB PO SCH (21:17)
[2019-02-19] MEDS: MONTELUKAST 10 MG TAB PO SCH (21:17)
[2019-02-19] MEDS: GABAPENTIN 300 MG CAP PO SCH (21:17)
[2019-02-19] MEDS: INSULIN GLARGINE 100 UNITS/ML SQ SCH (21:21)
--- NOTE | 2019-02-20 00:24 | PN ---
Date of Progress Note: 02/19/2019 Chief Complaint: Acute kidney injury on advanced chronic kidney disease. History Of Present Illness: The patient has chronic kidney disease stage 4. He was found to have ac maciel accelerated kidney disease secondary to ATN. The patient denies nonsteroidal anti-inflammatory m edications. The patient previously was admitted for cardiac catheterization on February 07 and creatinine was 2.6 and 2.7. He received Mucomyst and IV fluids to prevent contrast-induced nephropathy and cre atinine remained at stable range 2 days after procedure. Subsequently, he was discharged home and La six dose was increased and on arrival to the hospital on February 18, he was found to have severe hyperk alemia, creatinine was 6.7, and the patient was started on dialysis. He received dialysis today. Th e patient has severe nonoliguric kidney injury and renal function has not improved. Review of Systems: Denies fever or chills. Physical Examination: LUNGS: Clear to auscultation bilaterally. HEART: S1, S2. ABDOMEN: Soft, benign. EXTREMITIES: Slight edema. Laboratory Data: Sodium 139, potassium is 3.8, chloride 106, CO2 24, BUN 73, creatinine 6.7, calcium 8.2. Impression And Plan: 1.The patient has history of acute kidney injury in setting on advanced chronic kidney disease stage 4. Renal function has not improved. The patient has dialysis catheter placed for temporary dialysi s access. The patient will continue dialysis for metabolic clearance. The patient has history of co ngestive heart failure with diastolic and systolic dysfunction. Previously, he was on Lasix. Plan i s to advance ultrafiltration to control fluid overload. Continue low-sodium diet. 2.The patient has nausea, vomiting, likely it was a culprit for acute kidney injury, and continue to monitor for an evidence of gastritis. At this point, the patient is asymptomatic. 3.Coronary artery disease. The patient had cardiac catheterization on February 07. Currently, he is asy mptomatic. Denies chest pain. 4.The patient received mild hydration. Renal function has not been improved. Plan is to hold the L asix and continue Norvasc for blood pressure control. EB/MODL Voice ID: [id number] Report ID: [id number]
[2019-02-20] MEDS: HEPARIN 5000 UNIT/ML 1 ML VIAL SQ SCH ×3 (01:25→18:00)
[2019-02-20 05:45] LABS: Absolute Monocytes 0.6 K/uL (0.1-1.3); Absolute Neutrophil 4.7 K/uL (1.8-8.0); Basophils % 0.7 % (0-1.3); Eosinophils % 4.7 % (0-4.4); Hematocrit 41.6 % (39.6-49.0); Lymphocytes % 25.5 % (15.3-44.8); MPV 9.6 fL (7.6-11.3); Monocytes % 8.1 % (3.3-12.3); RBC Red Blood Cell Count 4.42 M/uL (4.33-5.43)
[2019-02-20 06:12] LABS: Potassium 3.7 mmol/L (3.5-5.1)
[2019-02-20] MEDS: HOME MED 1 EA UNK (Cyanocobalamin (Vitamin B-12) [Vitamin B12] 1 TAB) PO SCH (09:00)
[2019-02-20] MEDS: FUROSEMIDE 20 MG TABLET PO SCH (09:00)
[2019-02-20] MEDS: DULOXETINE 30 MG CAP PO SCH ×2 (09:00→21:08)
[2019-02-20] MEDS: NA CHLORIDE 0.9% 1,000 ML IV SCH (12:00)
[2019-02-20] MEDS: ASPIRIN 81 MG CHEWABLE TABLET PO SCH (12:34)
[2019-02-20] MEDS: NEBIVOLOL HCL 5 MG TAB PO SCH ×2 (12:35→21:09)
[2019-02-20] MEDS: CLOPIDOGREL 75 MG TABLET PO SCH (12:37)
[2019-02-20] MEDS: CYANOCOBALAMIN 1,000 MCG TAB PO SCH (12:38)
[2019-02-20] MEDS: ICOSAPENT ETHYL 1 GM CAP PO SCH ×2 (12:38→21:08)
[2019-02-20] MEDS: ISOSORBIDE MONO SR 30 MG TAB PO SCH (17:06)
--- NOTE | 2019-02-20 18:33 | P.PN ---
Subjective Date of Service: 02/20/19 Chief Complaint: Abnormal labs Subjective: Improving Patient seen and examined at bedside. family at bedside. Chart reviewed and case discussed with nursing staff. No acute events noted overnight. He is now status post placement of temporary dialysis catheter, right femoral. S /p 1 dialysis session He denies any complaints or concerns this morning Review of Systems 10-point ROS is otherwise unremarkable Physical Examination - Vital Signs Temperature: 97.3 F Blood Pressure: 165/88 Pulse: 58 Respirations: 16 Pulse Ox (%): 10 - Physical Exam General: Alert, In no apparent distress Respiratory: Clear to auscultation bilaterally, Normal air movement Cardiovascular: Regular rate/rhythm, Normal S1 S2 Gastrointestinal: Normal bowel sounds, No tenderness Assessment And Plan - Current Problems (Diagnosis) (1) BHAVNA (acute kidney injury) Current Visit: Yes Status: Acute Plan: Likely secondary to contrast induced nephropathy versus pre renal azotemia. -It seems to me to contrast induced nephropathy is less likely as patient is to creatinine was normal 2 days post cardiac catheterization. -Nephrology consulted, recommendations appreciated. Pending dialysis again today. -he is status post temporary right femoral catheter placement. Appreciate Dr. Cornell's help. -gentle hydration -Hold Lasix and amlodipine at this time. (2) Chronic kidney disease (CKD) Onset Date: 10/04/18 Current Visit: Yes Status: Chronic Qualifiers: Chronic kidney disease stage: stage 4 (severe) Qualified Code(s): N18.4 - Chronic kidney disease, stage 4 (severe) (3) CAD (coronary artery disease) Current Visit: No Status: Chronic Plan: Stable Qualifiers: Coronary Disease-Associated Artery/Lesion type: [place] artery [place] vs. transplanted heart: [place] heart Associated angina: without angina Qualified Code(s): I25.10 - Atherosclerotic heart disease of [place] coronary artery without angina pectoris (4) Diabetes mellitus Current Visit: Yes Status: Acute Plan: Accu-Cheks and mild sliding scale insulin at this time. 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 Diabetes mellitus complication status: with kidney complications Diabetes mellitus complication detail: with chronic kidney disease Chronic kidney disease stage: stage 4 (severe) Qualified Code(s): E11.22 - Type 2 diabetes mellitus with diabetic chronic kidney disease; N18.4 - Chronic kidney disease, stage 4 (severe); Z79.4 - refresh technician (current) use of insulin (5) Hyperlipidemia Current Visit: No Status: Chronic Plan: Stable, continue home medications Qualifiers: Hyperlipidemia type: unspecified Qualified Code(s): E78.5 - Hyperlipidemia , unspecified (6) Hypertension Current Visit: No Status: Chronic Qualifiers: Hypertension type: essential hypertension - Plan DVT prophylaxis: Will start heparin GI prophylaxis: None Diet: Renal Disposition: Pending renal workup, and temp dialysis.
[2019-02-20] MEDS: ATORVASTATIN 80 MG TAB PO SCH (21:07)
[2019-02-20] MEDS: GABAPENTIN 300 MG CAP PO SCH (21:08)
[2019-02-20] MEDS: MONTELUKAST 10 MG TAB PO SCH (21:08)
[2019-02-20] MEDS: AMITRIPTYLINE 25 MG TAB PO SCH (21:08)
[2019-02-20] MEDS: INSULIN GLARGINE 100 UNITS/ML SQ SCH (21:11)
--- NOTE | 2019-02-21 03:47 | PN ---
Date of Progress Note: 02/20/2019 Chief Complaint: Acute kidney injury on advanced chronic kidney disease. History Of Present Illness: The patient has chronic kidney disease stage 4. He was found to have ac maciel accelerated kidney due to ATN. The patient denies nonsteroidal anti-inflammatory medication. Pr eviously, he was admitted for cardiac catheterization on February 07. Creatinine levels were 2.6 and 2.7. He received IV fluids and Mucomyst to prevent contrast-induced nephropathy. Renal function remaine d stable after 48 hours post procedure. Subsequently, he was discharged home and was treated with La six. On February 18, when he was admitted, he was found to have hyperkalemia, potassium of 6.7, and he wa s started on dialysis. He received dialysis yesterday to control volume and electrolytes. Review of Systems: Denies fever or chills. Physical Examination: LUNGS: Clear to auscultation bilaterally. HEART: S1, S2. ABDOMEN: Soft, benign. EXTREMITIES: Slight edema. Laboratory Data: Hemoglobin 14.3, WBC 7.8, platelet count is 152,000. Chemistry showed sodium 139, potassium 3.7, chloride 105, CO2 of 27, BUN 58, creatinine 5.78. Calcium 7.9. Impression And Plan: 1.Acute on chronic kidney injury, likely the patient has end-stage renal disease. The patient has n onoliguric urine output. Re-evaluate electrolytes and plan dialysis accordingly. 2.History of congestive heart failure, diastolic dysfunction. Monitor fluid intake. Continue low-s odium diet. 3.Coronary artery disease, status post cardiac catheterization on February 07. The patient is currently asymptomatic. He denies chest pain. 4.Hypertension. Continue blood pressure medication. EMY/MODL Voice ID: [id number] Report ID: [id number]
[2019-02-21 04:35] LABS: Absolute Lymphocytes (CBC) 2.7 K/uL (0.7-4.9); Absolute Monocytes 0.7 K/uL (0.1-1.3); Absolute Neutrophil 4.4 K/uL (1.8-8.0); Basophils % 0.6 % (0-1.3); Eosinophils % 4.2 % (0-4.4); Hematocrit 40.7 % (39.6-49.0); Lymphocytes % 33.1 % (15.3-44.8); MPV 9.9 fL (7.6-11.3); Monocytes % 8.4 % (3.3-12.3); RBC Red Blood Cell Count 4.34 M/uL (4.33-5.43)
[2019-02-21 04:53] LABS: Potassium 4.1 mmol/L (3.5-5.1)
[2019-02-21] MEDS: CYANOCOBALAMIN 1,000 MCG TAB PO SCH (09:37)
[2019-02-21] MEDS: CLOPIDOGREL 75 MG TABLET PO SCH (09:37)
[2019-02-21] MEDS: NEBIVOLOL HCL 5 MG TAB PO SCH ×2 (09:37→20:59)
[2019-02-21] MEDS: ICOSAPENT ETHYL 1 GM CAP PO SCH ×2 (09:37→21:01)
[2019-02-21] MEDS: ASPIRIN 81 MG CHEWABLE TABLET PO SCH (09:37)
[2019-02-21] MEDS: HEPARIN 5000 UNIT/ML 1 ML VIAL SQ SCH ×3 (09:39→18:05)
--- NOTE | 2019-02-21 11:19 | P.PN ---
Subjective Date of Service: 02/21/19 Chief Complaint: Abnormal labs Subjective: No C/O voiced Patient seen and examined at bedside. family at bedside. Chart reviewed and case discussed with nursing staff. No acute events noted overnight. He is now status post placement of temporary dialysis catheter, right femoral. S /p 2 dialysis session He denies any complaints or concerns this morning. Review of Systems 10-point ROS is otherwise unremarkable Physical Examination - Vital Signs Temperature: 97.0 F Blood Pressure: 141/80 Pulse: 60 Respirations: 16 Pulse Ox (%): 95 - Physical Exam General: Alert, In no apparent distress, Oriented x3, Obese HEENT: Atraumatic, PERRLA, EOMI Neck: Supple, JVD not distended Respiratory: Clear to auscultation bilaterally, Normal air movement Cardiovascular: Regular rate/rhythm, Normal S1 S2 Gastrointestinal: Normal bowel sounds, No tenderness Musculoskeletal: No tenderness Integumentary: No rashes Neurological: Normal speech, Normal tone, Normal affect Lymphatics: No axilla or inguinal lymphadenopathy Assessment And Plan - Current Problems (Diagnosis) (1) BHAVNA (acute kidney injury) Current Visit: Yes Status: Acute Plan: Likely secondary to contrast induced nephropathy versus pre renal azotemia. Unfortunately, this could also be progression to end-stage renal disease and he may require for with dialysis in [place] the place. -It seems to me to contrast induced nephropathy is less likely as patient is to creatinine was normal 2 days post cardiac catheterization. -Nephrology consulted, recommendations appreciated. Discussed case with Nephrology today. Plan is to observe patient's creatinine and kidney function overnight, possibly pending a dialysis session tomorrow. After the decision can be made regarding the a more permanent catheter placement if needed. -he is status post temporary right femoral catheter placement. Appreciate Dr. Cornell's help. -Hold Lasix and amlodipine at this time. (2) Chronic kidney disease (CKD) Onset Date: 10/04/18 Current Visit: Yes Status: Chronic Qualifiers: Chronic kidney disease stage: stage 4 (severe) Qualified Code(s): N18.4 - Chronic kidney disease, stage 4 (severe) (3) CAD (coronary artery disease) Current Visit: No Status: Chronic Plan: Stable Qualifiers: Coronary Disease-Associated Artery/Lesion type: [place] artery [place] vs. transplanted heart: [place] heart Associated angina: without angina Qualified Code(s): I25.10 - Atherosclerotic heart disease of [place] coronary artery without angina pectoris (4) Diabetes mellitus Current Visit: Yes Status: Acute Plan: Accu-Cheks and mild sliding scale insulin at this time. 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 Patient may need to be set up with outpatient dialysis if kidney function not improving.
--- NOTE | 2019-02-21 15:17 | PN ---
Date of Progress Note: 02/21/2019 Chief Complaint: Acute kidney injury on advanced chronic kidney disease. History Of Present Illness: The patient has chronic kidney disease stage 4. He was found to have ac maciel accelerated kidney disease due to acute tubular necrosis. The patient denies nonsteroidal anti-i nflammatory medication. Previously, he had cardiac catheterization done on February 07. Creatinine level was stable over 48 hours post cardiac catheterization, and the patient received IV fluids with Mucom yst to prevent contrast-induced nephropathy. Renal function was stable and during past hospitalizati on course, the patient was taking Lasix and dose was increased. The patient came to the hospital on February 18, was admitted for generalized weakness, was found to have aekuv-us-aysjdyt kidney injury with hyperkalemia. Potassium was 6.7. The patient was started on dialysis. The patient currently has no noliguric urine output. He received dialysis yesterday to obtain metabolic clearance and ultrafiltra tion. Creatinine level is today 5.2. Predialysis was 5.78. Review of Systems: Denies fever, chills. Physical Examination: Lungs: Clear to auscultation bilaterally. Heart: S1, S2. Abdomen: Soft, benign, nontender. Extremities: Slight edema. Laboratory Data: BUN 58, creatinine 5.79, calcium 7.9, sodium 149, potassium 3.7. Hemoglobin is 14. 3. Impression And Plan: 1.Oqagn-ar-mhuworu kidney injury, nonoliguric, due to acute tubular necrosis and possible contrast-i nduced nephropathy. The patient was medicated to prevent contrast-induced nephropathy, but the patie nt has a high risk due to advanced chronic kidney disease. The patient likely will remain on dialysis today. The patient decided not to have dialysis 24 hours urine to evaluate _ evidence of improvement of diuresis and renal function will be checked tomorrow. 2.History of congestive heart failure, diastolic dysfunction. Monitor fluid intake. Continue low-s odium diet. 3.Hypertension. Continue blood pressure medication. 4.Coronary artery disease, status post cardiac catheterization on February 07. The patient is asymptomat ic, does not have chest pain. 5.Acute kidney injury on chronic kidney disease. Avoid nonsteroidal anti-inflammatory medication. Monitor renal panel. EB/MODL Voice ID: [id number] Report ID: [id number]
[2019-02-21] MEDS: ISOSORBIDE MONO SR 30 MG TAB PO SCH (18:05)
[2019-02-21 20:11] LABS: HBsAG Nonreactive (Nonreactive)
[2019-02-21] MEDS: ATORVASTATIN 80 MG TAB PO SCH (20:59)
[2019-02-21] MEDS: DULOXETINE 30 MG CAP PO SCH (20:59)
[2019-02-21] MEDS: AMITRIPTYLINE 25 MG TAB PO SCH (21:00)
[2019-02-21] MEDS: GABAPENTIN 300 MG CAP PO SCH (21:00)
[2019-02-21] MEDS: MONTELUKAST 10 MG TAB PO SCH (21:00)
[2019-02-21] MEDS: INSULIN GLARGINE 100 UNITS/ML SQ SCH (21:02)
[2019-02-22] MEDS: HEPARIN 5000 UNIT/ML 1 ML VIAL SQ SCH ×3 (00:05→16:59)
[2019-02-22 04:24] LABS: Absolute Lymphocytes (CBC) 2.2 K/uL (0.7-4.9); Absolute Monocytes 0.6 K/uL (0.1-1.3); Absolute Neutrophil 4.6 K/uL (1.8-8.0); Basophils % 0.8 % (0-1.3); Eosinophils % 5.2 % (0-4.4); Hematocrit 40.5 % (39.6-49.0); Lymphocytes % 27.7 % (15.3-44.8); Monocytes % 8.1 % (3.3-12.3); RBC Red Blood Cell Count 4.33 M/uL (4.33-5.43)
[2019-02-22 04:49] LABS: Potassium 4.4 mmol/L (3.5-5.1)
[2019-02-22] MEDS: NEBIVOLOL HCL 5 MG TAB PO SCH ×2 (09:07→21:58)
[2019-02-22] MEDS: CYANOCOBALAMIN 1,000 MCG TAB PO SCH (09:08)
[2019-02-22] MEDS: CLOPIDOGREL 75 MG TABLET PO SCH (09:08)
[2019-02-22] MEDS: ASPIRIN 81 MG CHEWABLE TABLET PO SCH (09:08)
[2019-02-22] MEDS: ICOSAPENT ETHYL 1 GM CAP PO SCH ×2 (09:08→22:00)
--- NOTE | 2019-02-22 15:33 | PN ---
Date of Progress Note: 02/22/2019 Subjective: Patient seen and examined. Chart reviewed and case discussed with RN and Dr. Ramirez. The patient states he is feeling better. His edema has also improved. Still gets some lightheadedness when switching positions from laying to sitting or sitting to standing. I explained to the patient that he should wait until his dizziness resolves prior to getting up, always to call for help before getting up in order to avoid a fall, he voiced understanding. Discussed treatment plan. All questions were answered. I went over his lab results with him as well. Patient seems to understand that he will require dialysis for the foreseeable future. Medications: List reviewed. Physical Examination: Vital Signs: Temperature 97.7, heart rate 57, respirations 18, O2 sat 98% on room air. General: Awake, alert and oriented x3. Morbidly obese male. CV: S1, S2. Regular rate and rhythm. Peripheral pulses weak bilaterally. Respiratory: Diminished breath sounds. No wheezing or stridor. Gastrointestinal: Abdomen is soft, nontender, nondistended. Positive bowel sounds. Extremities: No clubbing or cyanosis. The patient has 1+ edema, bilateral lower extremities. Neuro: Cranial nerves 2-12 intact grossly. No focal neurological deficit. Speech is normal. Laboratory Data: Sodium 139, potassium 4.4, chloride 105, CO2 of 27, BUN 51, creatinine 5.8, glucose 195, calcium 8.5. WBC 7.9, H and H 14 and 40.5, platelets 143. Assessment And Plan: A 64-year-old male with. 1. Acute kidney injury superimposed on chronic kidney disease, now requiring dialysis, likely secondary to acute tubular necrosis from contrast-induced nephropathy. The patient will need a tunneled hemodialysis catheter. Surgery has been consulted. Appreciate Dr. Ramirez's input with Nephrology. The patient's creatinine has continued to stay elevated around 5, worse today with a creatinine level of 5.8. The patient's urine output is satisfactory at this time. Other workup including immune panel is pending. Hepatitis panel is negative. We will continue dialysis today. 2. Chronic kidney disease stage 4, worsened, now requiring dialysis. 3. Coronary artery disease, [place] artery and [place] heart without angina. We will continue home medications as appropriate. No chest pain at this time. 4. Diabetes mellitus type 2 with long-term use of insulin with chronic kidney disease. We will continue monitoring blood glucose levels. Continue sliding scale insulin. 5. Mixed hyperlipidemia. Continue home medications. 6. Essential hypertension, stable. 7. Morbid obesity. BMI of 41. 8. Chronic back pain. 9. Obstructive sleep apnea. Continue CPAP at night. GI and DVT prophylaxis addressed with heparin renally dosed. Plan: Social Work consult to setup hemodialysis with outpatient hemodialysis catheter placement. /SAURABH Voice ID: [id number] Report ID: [id number] MTDD
[2019-02-22 16:47] LABS: P-ANCA Anti-Myeloperoxidase Ab <1.0 AI (<1.0)
[2019-02-22] MEDS: ISOSORBIDE MONO SR 30 MG TAB PO SCH (17:01)
[2019-02-22] MEDS: ATORVASTATIN 80 MG TAB PO SCH (21:58)
[2019-02-22] MEDS: GABAPENTIN 300 MG CAP PO SCH (21:59)
[2019-02-22] MEDS: DULOXETINE 30 MG CAP PO SCH (22:00)
[2019-02-22] MEDS: INSULIN GLARGINE 100 UNITS/ML SQ SCH (22:00)
[2019-02-22] MEDS: AMITRIPTYLINE 25 MG TAB PO SCH (22:00)
[2019-02-22] MEDS: MONTELUKAST 10 MG TAB PO SCH (22:07)
--- NOTE | 2019-02-22 23:57 | PN ---
Date of Progress Note: 02/22/2019 Subjective: The patient was admitted because of elevation in BUN and creatinine and hyperkalemia. T he patient is still oliguric. The patient had cardiac cath 2 weeks ago. Physical Examination: Vital Signs: Blood pressure 157/90, pulse of 61. Chest: Clear to auscultation. Heart: S1, S2. Regular. Abdomen: Soft, nontender. Extremities: Trace edema. Laboratory Data: H and H 14/40.5. Sodium 139, potassium 4.4, bicarb 27, BUN 51, creatinine 5.8, GFR of 10, calcium 8.5. Current Medications: The patient on its include; 1.Plavix. 2.Atorvastatin. 3.Isosorbide. 4.Bystolic. 5.Amitriptyline. 6.Gabapentin. 7.Zofran. Assessment And Plan: 1.Acute kidney injury secondary to contrast-induced nephropathy on advanced chronic kidney disease, normal volume. I had long discussion with the patient that we need to initiate renal replacement the rapy. The patient agreed on the plan. We will go ahead and proceed with a tunneled dialysis cathete r placement. We will arrange for dialysis tomorrow and we will monitor the patient. 2.Hypertension, controlled, not optimal. We will utilize the blood pressure to establish better vol ume control. 3.Diabetes, as by primary. 4.Hyperkalemia, resolved. The patient is going to be waiting for a dialysis placement. We will fol low up with the group social worker. This patient's case was discussed with the patient, who agreed with t he plan. Time Spent: 45 minutes. PHILIP Voice ID: [id number] Report ID: [id number]
[2019-02-23 00:01] LABS: Alpha-1-Globulins 0.3 g/dL (0.2-0.3); Gamma Globulins 1.3 g/dL (0.8-1.7); INTERPRETATION REPORT
[2019-02-23] MEDS: HEPARIN 5000 UNIT/ML 1 ML VIAL SQ SCH ×3 (01:00→18:00)
[2019-02-23 06:40] LABS: Albumin 3.7 g/dL (3.4-5.0); Bilirubin Total 0.6 mg/dL (0.2-1.0); Potassium 4.2 mmol/L (3.5-5.1); Protein, Total 7.7 g/dL (6.4-8.2)
[2019-02-23] MEDS: CYANOCOBALAMIN 1,000 MCG TAB PO SCH (10:00)
[2019-02-23] MEDS: FUROSEMIDE 40 MG/4 ML VIAL IV SCH (10:00)
[2019-02-23] MEDS: NEBIVOLOL HCL 5 MG TAB PO SCH ×2 (10:00→22:06)
[2019-02-23] MEDS: ICOSAPENT ETHYL 1 GM CAP PO SCH ×2 (10:00→22:06)
[2019-02-23] MEDS: ISOSORBIDE MONO SR 30 MG TAB PO SCH (18:00)
[2019-02-23] MEDS: ATORVASTATIN 80 MG TAB PO SCH (22:06)
[2019-02-23] MEDS: GABAPENTIN 300 MG CAP PO SCH (22:06)
[2019-02-23] MEDS: MONTELUKAST 10 MG TAB PO SCH (22:07)
[2019-02-23] MEDS: DULOXETINE 30 MG CAP PO SCH (22:07)
[2019-02-23] MEDS: INSULIN GLARGINE 100 UNITS/ML SQ SCH (22:07)
[2019-02-23] MEDS: AMITRIPTYLINE 25 MG TAB PO SCH (22:07)
[2019-02-24] MEDS: HEPARIN 5000 UNIT/ML 1 ML VIAL SQ SCH ×4 (00:23→23:31)
[2019-02-24 04:44] LABS: Absolute Lymphocytes (CBC) 2.1 K/uL (0.7-4.9); Absolute Monocytes 0.6 K/uL (0.1-1.3); Absolute Neutrophil 5.4 K/uL (1.8-8.0); Basophils % 0.8 % (0-1.3); Eosinophils % 4.2 % (0-4.4); Hematocrit 41.3 % (39.6-49.0); Lymphocytes % 24.9 % (15.3-44.8); MPV 10.1 fL (7.6-11.3); Monocytes % 6.6 % (3.3-12.3); RBC Red Blood Cell Count 4.43 M/uL (4.33-5.43)
[2019-02-24 05:12] LABS: Albumin 3.5 g/dL (3.4-5.0); Bilirubin Total 0.6 mg/dL (0.2-1.0); Protein, Total 7.2 g/dL (6.4-8.2)
[2019-02-24] MEDS: CYANOCOBALAMIN 1,000 MCG TAB PO SCH (08:45)
[2019-02-24] MEDS: ICOSAPENT ETHYL 1 GM CAP PO SCH ×2 (08:45→21:00)
[2019-02-24] MEDS: FUROSEMIDE 40 MG/4 ML VIAL IV SCH (08:45)
[2019-02-24] MEDS: NEBIVOLOL HCL 5 MG TAB PO SCH ×2 (08:58→23:31)
[2019-02-24 11:30] LABS: HIV AG/AB 4TH GEN Non-reactive (Non-reactive)
--- NOTE | 2019-02-24 11:43 | PN ---
Date of Progress Note: 02/23/2019 Subjective: The patient is seen and examined. Chart reviewed and case was discussed with Dr. Chalino de la cruz as well as Dr. Cornell. The patient states that he continues to have chronic back pain. No other complaints. Case was discussed with Dr. Ramirez. Medications: List reviewed. Physical Examination: Vital Signs: Temperature 97.4, heart rate 55, blood pressure 152/87, respirations 18, OS 97% on room air. General: Awake, alert, oriented x3, not in any acute distress. Morbidly obese male. CV: S1 and S2. Regular rate and rhythm. Peripheral pulses present. Respiratory: Diminished breath sounds at the bases, otherwise moving air well at the apices. No whe ezing. Gastrointestinal: Abdomen is soft, nontender, nondistended. Positive bowel sounds. Extremities: No clubbing, cyanosis. The patient has pedal edema. Neurologic: Nonfocal. Laboratory Data: Sodium 139, potassium 4.2, chloride 105, CO2 27, BUN 52, creatinine 5.89, glucose o f 182, calcium 9. WBC pending. Immune panel pending. Assessment And Plan: A 64-year-old male with, 1.Acute kidney injury superimposed on chronic kidney disease stage 4, now requiring dialysis, likely secondary to acute tubular necrosis from contrast induced nephropathy. The patient received tunnele d catheter on Thursday as the patient needs to be off aspirin and Plavix for [address] Mackey wi ll be available. Dr. Cornell will be out of town. The patient will continue dialysis again today. Appreciate Dr. Ramirez's input. forestry conservation worker working on setting up outpatient chair time with Salvatore moran. 2.Chronic kidney disease stage 4, worsened, now requiring dialysis. 3.Coronary artery disease, [place] artery and [place] heart without angina. Hold aspirin and Plavix d ue to anticipated procedure, stable. 4.Diabetes mellitus type 2 with long-term use of insulin with chronic kidney disease, now on dialysi s. Continue Accu-Cheks and sliding scale insulin. 5.Mixed hyperlipidemia, continue statin. 6.Essential hypertension, stable on home medications. 7.Morbid obesity. BMI 41. 8.Chronic back pain. Continue pain control. 9.Obstructive sleep apnea. The patient uses CPAP at night. 10.Deep venous thrombosis prophylaxis. The patient is on heparin renally dosed. Plan: Anticipate tunneled catheter placement for hemodialysis on Thursday. Meanwhile, awaiting chair time at [facility]. /SAURABH Voice ID: [id number] Report ID: [id number]
--- NOTE | 2019-02-24 13:09 | P.PN ---
Subjective Date of Service: 02/24/19 Chief Complaint: Abnormal labs Subjective: No new changes Patient seen and examined chart reviewed and case discussed with RN and Dr. Vicente. Patient now refusing catheter placement by Dr. Mackey for personal reasons. No other surgeons available for the procedure tomorrow. Patient may need to be transferred for catheter placement Review of Systems 10-point ROS is otherwise unremarkable Physical Examination - Vital Signs Temperature: 97.4 F Blood Pressure: 153/75 Pulse: 60 Respirations: 18 Pulse Ox (%): 99 - Physical Exam General: Alert, In no apparent distress, Oriented x3, Obese HEENT: Atraumatic, PERRLA, EOMI Neck: Supple, JVD not distended Respiratory: Clear to auscultation bilaterally, Normal air movement Cardiovascular: Normal pulses, Regular rate/rhythm, Normal S1 S2, Edema Gastrointestinal: Normal bowel sounds, Soft and benign, Non-distended, No tenderness Musculoskeletal: No tenderness Integumentary: No rashes, Other (Femoral catheter in place on the right ) Neurological: Normal speech, Normal strength at 5/5 x4 extr, Normal tone, Normal affect - Studies Laboratory Last Values WBC 8.4 K/uL (4.3-10.9) 02/24/19 04:18 RBC 4.43 M/uL (4.33-5.43) 02/24/19 04:18 Hgb 14.4 g/dL (13.6-17.9) 02/24/19 04:18 Hct 41.3 % (39.6-49.0) 02/24/19 04:18 MCV 93.1 fL (80-100) 02/24/19 04:18 MCH 32.5 pg (27.0-35.0) 02/24/19 04:18 MCHC 35.0 g/dL (32.0-36.0) 02/24/19 04:18 RDW 12.7 % (12.1-15.2) 02/24/19 04:18 Plt Count 115 K/uL (152-406) L 02/24/19 04:18 MPV 10.1 fL (7.6-11.3) 02/24/19 04:18 Neutrophils % 63.5 % (41.7-73.7) 02/24/19 04:18 Lymphocytes % 24.9 % (15.3-44.8) 02/24/19 04:18 Monocytes % 6.6 % (3.3-12.3) 02/24/19 04:18 Eosinophils % 4.2 % (0-4.4) 02/24/19 04:18 Basophils % 0.8 % (0-1.3) 02/24/19 04:18 Absolute Neutrophils 5.4 K/uL (1.8-8.0) 02/24/19 04:18 Absolute Lymphocytes 2.1 K/uL (0.7-4.9) 02/24/19 04:18 Absolute Monocytes 0.6 K/uL (0.1-1.3) 02/24/19 04:18 Absolute Eosinophils 0.4 K/uL (0-0.5) 02/24/19 04:18 Absolute Basophils 0.1 K/uL (0-0.5) 02/24/19 04:18 Sodium 138 mmol/L (136-145) 02/24/19 04:18 Potassium 4.0 mmol/L (3.5-5.1) 02/24/19 04:18 Chloride 105 mmol/L (98-107) 02/24/19 04:18 Carbon Dioxide 24 mmol/L (21-32) 02/24/19 04:18 BUN 42 mg/dL (7-18) H 02/24/19 04:18 Creatinine 5.09 mg/dL (0.55-1.3) H* 02/24/19 04:18 Estimated GFR 12 mL/min (=/>90) L 02/24/19 04:18 Glucose 223 mg/dL (74-106) H 02/24/19 04:18 POC Glucose 211 mg/dl (65-120) H 02/24/19 07:27 Hemoglobin A1c 8.0 % (4.2-6.3) H 02/19/19 06:05 Uric Acid 10.6 mg/dL (3.5-7.2) H 02/19/19 06:05 Calcium 8.6 mg/dL (8.5-10.1) 02/24/19 04:18 Phosphorus 5.4 mg/dL (2.5-4.9) H 02/19/19 06:05 Iron 92.0 ug/dL (65-175) 02/19/19 06:05 TIBC 308 ug/dL (250-460) 02/19/19 06:05 Transferrin 220 mg/dL (200-360) 02/19/19 06:05 Transferrin % Sat 29.9 % (20.0-50.0) 02/19/19 06:05 Ferritin 328.7 ng/mL (26-388) 02/19/19 06:05 Total Bilirubin 0.6 mg/dL (0.2-1.0) 02/24/19 04:18 AST 31 U/L (15-37) 02/24/19 04:18 ALT 56 U/L (12-78) 02/24/19 04:18 Alkaline Phosphatase 107 U/L (45-117) 02/24/19 04:18 Serum Total Protein 7.2 g/dL (6.4-8.2) 02/24/19 04:18 Total Protein 7.4 g/dL (6.1-8.1) 02/19/19 06:05 Albumin 3.5 g/dL (3.4-5.0) 02/24/19 04:18 Globulin 3.7 g/dL (2.3-3.5) H 02/24/19 04:18 Albumin/Globulin Ratio 0.9 (1.1-1.8) L 02/24/19 04:18 Liuti-8-Rfvjjvkgd 0.3 g/dL (0.2-0.3) 02/19/19 06:05 Clwjo-0-Bvaqnykyc 1.0 g/dL (0.5-0.9) H 02/19/19 06:05 Gamma Globulins 1.3 g/dL (0.8-1.7) 02/19/19 06:05 M-Bharat Report 02/19/19 06:05 M-Bharat 2 GRAPHIC SPECIALIST 02/19/19 06:05 Abnorm Protein Band 3 GRAPHIC SPECIALIST 02/19/19 06:05 PEP Interpretation Report 02/19/19 06:05 Vitamin B12 1280 pg/mL (193-986) H 02/19/19 06:05 Serum Folate > 20.0 ng/mL (3.1-17.5) H 02/19/19 06:05 PTH Intact 292.8 pg/mL (18.4-80.1) H 02/19/19 06:05 Urine Color Yellow 02/18/19 21:40 Urine Appearance Clear 02/18/19 21:40 Urine pH 5.5 (5.0-7.0) 02/18/19 21:40 Ur Specific [place] 1.010 (1.005-1.030) 02/18/19 21:40 Urine Ketones Negative (NEG) 02/18/19 21:40 Urine Blood Negative (NEG) 02/18/19 21:40 Urine Nitrite Negative (NEG) 02/18/19 21:40 Urine Bilirubin Negative (NEG) 02/18/19 21:40 Urine Urobilinogen 0.2 mg/dL (0.2-1.0) 02/18/19 21:40 Ur Leukocyte Esterase Negative (NEG) 02/18/19 21:40 Urine RBC None seen /HPF (NONE SEEN) 02/18/19 21:40 Urine WBC None seen /HPF (<5) 02/18/19 21:40 Ur Squamous Epith Cells 5-10 /HPF (NONE SEEN) H 02/18/19 21:40 Ur Urothelial Cells <5 /HPF (NONE SEEN) 02/18/19 21:40 Urine Bacteria <20 /HPF (NONE SEEN) 02/18/19 21:40 Urine Culture Reflexed Not needed 02/18/19 21:40 U Random Total Protein 90 mg/dL (<11.9) H 02/18/19 21:40 U Random IEP Report 02/18/19 21:40 Urine Creatinine 55.0 mg/dL (20-370) 02/18/19 21:40 Protein/Creatinin Ratio 1.64 ratio (<0.15) H 02/18/19 21:40 Urine Glucose Negative (NEG) 02/18/19 21:40 Urine Total Protein 2+ (NEG) H 02/18/19 21:40 GLORIA Screen Negative (Negative) 02/19/19 06:05 GLORIA Pattern 2 Not indicated 02/19/19 06:05 Anti-Proteinase 3 <1.0 AI (<1.0) 02/19/19 06:05 Anti-Myeloperoxidase <1.0 AI (<1.0) 02/19/19 06:05 Glomerular Base Mem IgG <1.0 AI (<1.0) 02/19/19 06:05 Complement C3 149 mg/dL (82-185) 02/19/19 06:05 Complement C4 30 mg/dL (15-53) 02/19/19 06:05 Hep Bs Antigen Nonreactive (Nonreactive) 02/19/19 06:05 Hep Bs Antibody Nonreactive (Nonreactive) 02/19/19 06:05 Hep Bs Antibody, Quant <5 mIU/mL (>=10) L 02/19/19 06:05 Hep B Core IgM Ab Nonreactive (Nonreactive) 02/19/19 06:05 Hepatitis C Antibody Nonreactive (Nonreactive) 02/19/19 06:05 Hep C Ab Signal/Cutoff 0.12 ratio (<1.00) 02/19/19 06:05 HIV 1&2 Ag/Ab, 4th Gen Non-reactive (Non-reactive) 02/20/19 05:28 HIV 1&2 Antibody Rapid Cancelled 02/20/19 07:00 Medications List Reviewed: Yes Assessment And Plan - Plan Assessment And Plan: A 64-year-old male with, 1. Acute kidney injury superimposed on chronic kidney disease stage 4, now requiring dialysis, likely secondary to acute tubular necrosis from contrast induced nephropathy. The patient requires tunneled catheter. Scheduled for Thursday as the patient needs to be off aspirin and Plavix for [address] Mackey will be available. Dr. Cornell will be out of town. The patient will continue dialysis again today. Appreciate Dr. Ramirez's input. general i farmworker working on setting up outpatient chair time with [facility]. 2. Chronic kidney disease stage 4, worsened, now requiring dialysis. Creatinine has stabilized around 5. Will continue to monitor 3. Coronary artery disease, [place] artery and [place] heart without angina. Hold aspirin and Plavix due to anticipated procedure, stable. 4. Diabetes mellitus type 2 with long-term use of insulin with chronic kidney disease, now on dialysis. Continue Accu-Cheks and sliding scale insulin. 5. Mixed hyperlipidemia, continue statin. 6. Essential hypertension, stable on home medications. 7. Morbid obesity. BMI 41. 8. Chronic back pain. Continue pain control. 9. Obstructive sleep apnea. The patient uses CPAP at night. 10. Deep venous thrombosis prophylaxis. The patient is on heparin renally dosed. Plan: Patient now refusing procedure by Dr. Mackey. No other surgeon available for procedure tomorrow. Will discuss further with family if they are still in agreeable patient may need to be transferred. Social service is working on chair time at [facility]. Discharge Plan: Home Plan to discharge in: 48 Hours - Code Status/Comfort Care Code Status Assessed: Yes
--- NOTE | 2019-02-24 14:21 | P.PN ---
Subjective Date of Service: 02/24/19 Chief Complaint: Abnormal labs Subjective: No new changes No new changes Cr trending up while off HD pt requesting different Surgeon for tunnled acth placement HD cath placement on Thursday Will dialyse tomorrow and monitor RFt while off HD Physical Examination - Vital Signs Temperature: 97.4 F Blood Pressure: 153/75 Pulse: 60 Respirations: 18 Pulse Ox (%): 99 - Physical Exam General: In no apparent distress, Oriented x3 HEENT: Atraumatic Neck: Supple, Without JVD or thyroid abnormality Respiratory: Clear to auscultation bilaterally, Normal air movement Cardiovascular: No edema, Normal pulses, Regular rate/rhythm, Normal S1 S2, No gallops, No rubs, No murmurs Gastrointestinal: Normal bowel sounds, Soft and benign Integumentary: No rashes - Studies Medications List Reviewed: Yes Assessment And Plan - Current Problems (Diagnosis) (1) BHAVNA (acute kidney injury) Current Visit: Yes Status: Acute - Plan BHAVNA on CKD Due to contrast induced nephropathy US no hydro serology W/u -ve started on HD tunneled cath placement on Thursday HTN controlled Dm as per PCP CAD stable
[2019-02-24] MEDS: ISOSORBIDE MONO SR 30 MG TAB PO SCH (16:52)
--- NOTE | 2019-02-24 19:54 | P.PN ---
Subjective Date of Service: 02/23/19 Chief Complaint: Abnormal labs Date of Progress Note: 02/23/2019 Subjective: The patient was admitted because of elevation in BUN and creatinine and hyperkalemia. The patient is still oliguric. The patient had cardiac cath 2 weeks ago. Physical Examination: Vital Signs: Blood pressure 157/90, pulse of 61. Chest: Clear to auscultation. Heart: S1, S2. Regular. Abdomen: Soft, nontender. Extremities: Trace edema. Laboratory Data: H and H 14/40.5. Sodium 139, potassium 4.4, bicarb 27, BUN 51 , creatinine 5.8, GFR of 10, calcium 8.5. Current Medications: The patient on its include; 1. Plavix. 2. Atorvastatin. 3. Isosorbide. 4. Bystolic. 5. Amitriptyline. 6. Gabapentin. 7. Zofran. Assessment And Plan: 1. Acute kidney injury secondary to contrast-induced nephropathy on advanced chronic kidney disease, normal volume. I had long discussion with the patient that we need to initiate renal replacement therapy. The patient agreed on the plan. We will go ahead and proceed with a tunneled dialysis catheter placement. waitting for [address] to place PC will f/u with surgen will use the temp cath for now 2. Hypertension, controlled, not optimal. We will utilize the blood pressure to establish better volume control. 3. Diabetes, as by primary. 4. Hyperkalemia, resolved. The patient is going to be waiting for a dialysis placement. We will follow up with the social worker aide. This patient's case was discussed with the patient, who agreed with the plan. Physical Examination - Vital Signs Temperature: 97.5 F Blood Pressure: 164/74 Pulse: 55 Respirations: 18 Pulse Ox (%): 99 - Studies Medications List Reviewed: Yes
[2019-02-24] MEDS: INSULIN GLARGINE 100 UNITS/ML SQ SCH (21:00)
[2019-02-24] MEDS: MONTELUKAST 10 MG TAB PO SCH (21:00)
[2019-02-24] MEDS: GABAPENTIN 300 MG CAP PO SCH (23:15)
[2019-02-24] MEDS: AMITRIPTYLINE 25 MG TAB PO SCH (23:16)
[2019-02-24] MEDS: ATORVASTATIN 80 MG TAB PO SCH (23:16)
[2019-02-24] MEDS: DULOXETINE 30 MG CAP PO SCH (23:17)
[2019-02-25 06:39] LABS: Albumin 3.5 g/dL (3.4-5.0); Bilirubin Total 0.5 mg/dL (0.2-1.0); Potassium 3.9 mmol/L (3.5-5.1); Protein, Total 7.3 g/dL (6.4-8.2)
[2019-02-25] MEDS: NEBIVOLOL HCL 5 MG TAB PO SCH ×2 (09:00→21:33)
[2019-02-25] MEDS: FUROSEMIDE 40 MG/4 ML VIAL IV SCH (09:00)
[2019-02-25] MEDS: ICOSAPENT ETHYL 1 GM CAP PO SCH ×2 (09:48→21:34)
[2019-02-25] MEDS: HEPARIN 5000 UNIT/ML 1 ML VIAL SQ SCH ×2 (09:48→18:13)
[2019-02-25] MEDS: CYANOCOBALAMIN 1,000 MCG TAB PO SCH (09:49)
--- NOTE | 2019-02-25 15:31 | P.PN ---
Subjective Date of Service: 02/25/19 Chief Complaint: Abnormal labs Subjective: No new changes No new changes Cr trending up while off HD pt requesting different Surgeon for tunneled cath placement HD cath placement on Thursday HD today Will add hydralazine for better BP control pending chair time arrangement Physical Examination - Vital Signs Temperature: 97.8 F Blood Pressure: 152/96 Pulse: 58 Respirations: 16 Pulse Ox (%): 99 - Physical Exam General: In no apparent distress, Oriented x3 HEENT: Atraumatic Neck: Supple, JVD not distended, Without JVD or thyroid abnormality Respiratory: Clear to auscultation bilaterally, Normal air movement Cardiovascular: No edema, Regular rate/rhythm, Normal S1 S2 Gastrointestinal: Normal bowel sounds, Soft and benign Musculoskeletal: No clubbing, No swelling - Studies Medications List Reviewed: Yes Assessment And Plan - Current Problems (Diagnosis) (1) BHAVNA (acute kidney injury) Current Visit: Yes Status: Acute - Plan BHAVNA on CKD Due to contrast induced nephropathy US no hydro serology W/u -ve started on HD tunneled cath placement on Thursday HTN will add hydralazine for better control Dm as per PCP CAD stable antiplatelate on hold , restart after cath placement PVD will need vascular evaluation as an OP
--- NOTE | 2019-02-25 16:21 | P.PN ---
Subjective Date of Service: 02/25/19 Chief Complaint: Abnormal labs Subjective: No new changes Patient seen and examined chart reviewed and case discussed with RN and Dr. Vicente. Patient initially was agreeable to going to [facility] for catheter placement however today refused. Case management updated. Going for dialysis today Review of Systems 10-point ROS is otherwise unremarkable Musculoskeletal: Back Pain (Chronic) Physical Examination - Vital Signs Temperature: 97.8 F Blood Pressure: 152/96 Pulse: 58 Respirations: 16 Pulse Ox (%): 99 - Physical Exam General: Alert, In no apparent distress, Oriented x3, Obese HEENT: Atraumatic, PERRLA, EOMI Neck: Supple, JVD not distended Respiratory: Clear to auscultation bilaterally, Normal air movement Cardiovascular: Regular rate/rhythm, Normal S1 S2, Edema Gastrointestinal: Normal bowel sounds, Soft and benign, Non-distended, No tenderness Musculoskeletal: No tenderness Integumentary: No rashes Neurological: Normal speech, Normal strength at 5/5 x4 extr, Normal tone, Normal affect - Studies Laboratory Tests 02/18/19 02/18/19 12:17 12:17 WBC 7.8 RBC 4.70 Hgb 15.2 Hct 43.9 MCV 93.5 MCH 32.3 MCHC 34.5 RDW 12.9 Plt Count 190 MPV 9.8 Neutrophils % 63.2 Lymphocytes % 24.8 Monocytes % 7.8 Eosinophils % 3.2 Basophils % 1.0 Absolute Neutrophils 4.9 Absolute Lymphocytes 1.9 Absolute Monocytes 0.6 Absolute Eosinophils 0.2 Absolute Basophils 0.1 Sodium 137 Potassium 3.9 Chloride 101 Carbon Dioxide 23 BUN 76 H Creatinine 6.70 H* Estimated GFR 8 L Glucose 215 H Calcium 8.2 L Medications List Reviewed: Yes Assessment And Plan - Plan Assessment And Plan: A 64-year-old male with, 1. Acute kidney injury superimposed on chronic kidney disease stage 4, now requiring dialysis, likely secondary to acute tubular necrosis from contrast induced nephropathy. The patient requires tunneled catheter. Patient refused to go to [facility] for catheter placement no other surgeon available. Will need to wait till Thursday when surgeon is available. The patient will continue dialysis again today. Appreciate Dr. Ramirez's input. personal support worker working on setting up outpatient chair time with [facility]. 2. Chronic kidney disease stage 4, worsened, now requiring dialysis. Creatinine has stabilized around 5. Will continue to monitor. Electrolytes are stable 3. Coronary artery disease, [place] artery and [place] heart without angina. Hold aspirin and Plavix due to anticipated procedure, stable. 4. Diabetes mellitus type 2 with long-term use of insulin with chronic kidney disease, now on dialysis. Continue Accu-Cheks and sliding scale insulin. 5. Mixed hyperlipidemia, continue statin. 6. Essential hypertension, stable on home medications. 7. Morbid obesity. BMI 41. 8. Chronic back pain. Continue pain control. 9. Obstructive sleep apnea. The patient uses CPAP at night. 10. Deep venous thrombosis prophylaxis. The patient is on heparin renally dosed. 11. Noncompliance intentional Plan: Patient now refusing to go to [facility] for catheter placement. Spoke with case reviewer Crista and Che. Social service is working on chair time at [facility]. Patient understands he is putting himself at risk for adverse cardiac events as his aspirin and Plavix her being held in anticipation of the procedure. Hopefully surgeon is available on Thursday otherwise will consult Dr. Bermudez as he will be rehabilitation inspector Thursday
[2019-02-25] MEDS: ISOSORBIDE MONO SR 30 MG TAB PO SCH (18:14)
[2019-02-25] MEDS: INSULIN GLARGINE 100 UNITS/ML SQ SCH (21:00)
[2019-02-25] MEDS: ATORVASTATIN 80 MG TAB PO SCH (21:32)
[2019-02-25] MEDS: MONTELUKAST 10 MG TAB PO SCH (21:32)
[2019-02-25] MEDS: AMITRIPTYLINE 25 MG TAB PO SCH (21:32)
[2019-02-25] MEDS: HYDRALAZINE HCL 25 MG TABLET PO SCH (21:32)
[2019-02-25] MEDS: GABAPENTIN 300 MG CAP PO SCH (21:33)
[2019-02-25] MEDS: DULOXETINE 30 MG CAP PO SCH (21:33)
[2019-02-26] MEDS: HEPARIN 5000 UNIT/ML 1 ML VIAL SQ SCH ×4 (01:00→16:59)
[2019-02-26 06:20] LABS: Albumin 3.4 g/dL (3.4-5.0); Bilirubin Total 0.5 mg/dL (0.2-1.0); Potassium 4.3 mmol/L (3.5-5.1); Protein, Total 7.1 g/dL (6.4-8.2)
[2019-02-26] MEDS ORDERED: D50W 25 GM/50 ML SYRINGE IV PRN (08:30)
[2019-02-26] MEDS ORDERED: GLUCAGON 1 MG/VIAL IM PRN (08:30)
[2019-02-26] MEDS: INSULIN -REGULAR HUMAN 50 UNIT/0.5 ML ML SQ SCH ×4 (08:46→21:44)
[2019-02-26] MEDS: HYDRALAZINE HCL 25 MG TABLET PO SCH ×3 (08:48→21:39)
[2019-02-26] MEDS: ICOSAPENT ETHYL 1 GM CAP PO SCH ×2 (08:48→21:00)
[2019-02-26] MEDS: NEBIVOLOL HCL 5 MG TAB PO SCH ×2 (08:49→21:42)
[2019-02-26] MEDS: CYANOCOBALAMIN 1,000 MCG TAB PO SCH (08:49)
[2019-02-26] MEDS: FUROSEMIDE 40 MG/4 ML VIAL IV SCH (08:49)
[2019-02-26] MEDS ORDERED: AMLODIPINE 5 MG TAB PO SCH (09:00)
--- NOTE | 2019-02-26 12:15 | P.PN ---
Subjective Date of Service: 02/26/19 Chief Complaint: Abnormal labs Subjective: No new changes Patient seen and examined chart reviewed and case discussed with RN. No acute events overnight. Patient tolerated dialysis well yesterday Review of Systems 10-point ROS is otherwise unremarkable Physical Examination - Vital Signs Temperature: 97.7 F Blood Pressure: 167/98 Pulse: 59 Respirations: 16 Pulse Ox (%): 98 - Physical Exam General: Alert, In no apparent distress, Oriented x3, Obese HEENT: Atraumatic, PERRLA, EOMI Neck: Supple, JVD not distended Respiratory: Clear to auscultation bilaterally, Normal air movement Cardiovascular: Normal pulses, Regular rate/rhythm, Normal S1 S2, Edema Gastrointestinal: Normal bowel sounds, Soft and benign, Non-distended, No tenderness Musculoskeletal: No tenderness Integumentary: No rashes Neurological: Normal speech, Normal tone, Normal affect - Studies Laboratory Last Values WBC 8.4 K/uL (4.3-10.9) 02/24/19 04:18 RBC 4.43 M/uL (4.33-5.43) 02/24/19 04:18 Hgb 14.4 g/dL (13.6-17.9) 02/24/19 04:18 Hct 41.3 % (39.6-49.0) 02/24/19 04:18 MCV 93.1 fL (80-100) 02/24/19 04:18 MCH 32.5 pg (27.0-35.0) 02/24/19 04:18 MCHC 35.0 g/dL (32.0-36.0) 02/24/19 04:18 RDW 12.7 % (12.1-15.2) 02/24/19 04:18 Plt Count 115 K/uL (152-406) L 02/24/19 04:18 MPV 10.1 fL (7.6-11.3) 02/24/19 04:18 Neutrophils % 63.5 % (41.7-73.7) 02/24/19 04:18 Lymphocytes % 24.9 % (15.3-44.8) 02/24/19 04:18 Monocytes % 6.6 % (3.3-12.3) 02/24/19 04:18 Eosinophils % 4.2 % (0-4.4) 02/24/19 04:18 Basophils % 0.8 % (0-1.3) 02/24/19 04:18 Absolute Neutrophils 5.4 K/uL (1.8-8.0) 02/24/19 04:18 Absolute Lymphocytes 2.1 K/uL (0.7-4.9) 02/24/19 04:18 Absolute Monocytes 0.6 K/uL (0.1-1.3) 02/24/19 04:18 Absolute Eosinophils 0.4 K/uL (0-0.5) 02/24/19 04:18 Absolute Basophils 0.1 K/uL (0-0.5) 02/24/19 04:18 Sodium 139 mmol/L (136-145) 02/26/19 05:45 Potassium 4.3 mmol/L (3.5-5.1) 02/26/19 05:45 Chloride 106 mmol/L (98-107) 02/26/19 05:45 Carbon Dioxide 27 mmol/L (21-32) 02/26/19 05:45 BUN 42 mg/dL (7-18) H 02/26/19 05:45 Creatinine 5.03 mg/dL (0.55-1.3) H* 02/26/19 05:45 Estimated GFR 12 mL/min (=/>90) L 02/26/19 05:45 Glucose 239 mg/dL (74-106) H 02/26/19 05:45 POC Glucose 254 mg/dl (65-120) H 02/26/19 11:27 Hemoglobin A1c 8.0 % (4.2-6.3) H 02/19/19 06:05 Uric Acid 10.6 mg/dL (3.5-7.2) H 02/19/19 06:05 Calcium 8.7 mg/dL (8.5-10.1) 02/26/19 05:45 Phosphorus 5.4 mg/dL (2.5-4.9) H 02/19/19 06:05 Iron 92.0 ug/dL (65-175) 02/19/19 06:05 TIBC 308 ug/dL (250-460) 02/19/19 06:05 Transferrin 220 mg/dL (200-360) 02/19/19 06:05 Transferrin % Sat 29.9 % (20.0-50.0) 02/19/19 06:05 Ferritin 328.7 ng/mL (26-388) 02/19/19 06:05 Total Bilirubin 0.5 mg/dL (0.2-1.0) 02/26/19 05:45 AST 25 U/L (15-37) 02/26/19 05:45 ALT 51 U/L (12-78) 02/26/19 05:45 Alkaline Phosphatase 110 U/L (45-117) 02/26/19 05:45 Serum Total Protein 7.1 g/dL (6.4-8.2) 02/26/19 05:45 Total Protein 7.4 g/dL (6.1-8.1) 02/19/19 06:05 Albumin 3.4 g/dL (3.4-5.0) 02/26/19 05:45 Globulin 3.7 g/dL (2.3-3.5) H 02/26/19 05:45 Albumin/Globulin Ratio 0.9 (1.1-1.8) L 02/26/19 05:45 Zmrma-8-Twjquznmf 0.3 g/dL (0.2-0.3) 02/19/19 06:05 Tdpxi-5-Hfjzblqsj 1.0 g/dL (0.5-0.9) H 02/19/19 06:05 Gamma Globulins 1.3 g/dL (0.8-1.7) 02/19/19 06:05 M-Bharat Report 02/19/19 06:05 M-Bharat 2 SCREWHEAD STONER AND POLISHER 02/19/19 06:05 Abnorm Protein Band 3 SCREWHEAD STONER AND POLISHER 02/19/19 06:05 PEP Interpretation Report 02/19/19 06:05 Vitamin B12 1280 pg/mL (193-986) H 02/19/19 06:05 Serum Folate > 20.0 ng/mL (3.1-17.5) H 02/19/19 06:05 PTH Intact 292.8 pg/mL (18.4-80.1) H 02/19/19 06:05 Urine Color Yellow 02/18/19 21:40 Urine Appearance Clear 02/18/19 21:40 Urine pH 5.5 (5.0-7.0) 02/18/19 21:40 Ur Specific [place] 1.010 (1.005-1.030) 02/18/19 21:40 Urine Ketones Negative (NEG) 02/18/19 21:40 Urine Blood Negative (NEG) 02/18/19 21:40 Urine Nitrite Negative (NEG) 02/18/19 21:40 Urine Bilirubin Negative (NEG) 02/18/19 21:40 Urine Urobilinogen 0.2 mg/dL (0.2-1.0) 02/18/19 21:40 Ur Leukocyte Esterase Negative (NEG) 02/18/19 21:40 Urine RBC None seen /HPF (NONE SEEN) 02/18/19 21:40 Urine WBC None seen /HPF (<5) 02/18/19 21:40 Ur Squamous Epith Cells 5-10 /HPF (NONE SEEN) H 02/18/19 21:40 Ur Urothelial Cells <5 /HPF (NONE SEEN) 02/18/19 21:40 Urine Bacteria <20 /HPF (NONE SEEN) 02/18/19 21:40 Urine Culture Reflexed Not needed 02/18/19 21:40 U Random Total Protein 90 mg/dL (<11.9) H 02/18/19 21:40 U Random IEP Report 02/18/19 21:40 Ur 24 Hour Volume 1350 mL/24 h 02/21/19 Unknown Urine Creatinine 55.0 mg/dL (20-370) 02/18/19 21:40 Protein/Creatinin Ratio 1.64 ratio (<0.15) H 02/18/19 21:40 Urine Glucose Negative (NEG) 02/18/19 21:40 Urine Total Protein 2+ (NEG) H 02/18/19 21:40 U Tot [place] Light 24h 105.71 mg/24 h 02/21/19 Unknown U Tot Lambda Light 24h 44.15 mg/24 h 02/21/19 Unknown Immunofix Electrophor Report 02/19/19 06:05 GLORIA Screen Negative (Negative) 02/19/19 06:05 GLORIA Pattern 2 Not indicated 02/19/19 06:05 Anti-Proteinase 3 <1.0 AI (<1.0) 02/19/19 06:05 Anti-Myeloperoxidase <1.0 AI (<1.0) 02/19/19 06:05 Glomerular Base Mem IgG <1.0 AI (<1.0) 02/19/19 06:05 Complement C3 149 mg/dL (82-185) 02/19/19 06:05 Complement C4 30 mg/dL (15-53) 02/19/19 06:05 Free Jane [place] LC, Quant 7.83 mg/dL (<2.00) H 02/21/19 Unknown Free Lambda LC, Quant 3.27 mg/dL (<2.00) H 02/21/19 Unknown Hep Bs Antigen Nonreactive (Nonreactive) 02/19/19 06:05 Hep Bs Antibody Nonreactive (Nonreactive) 02/19/19 06:05 Hep Bs Antibody, Quant <5 mIU/mL (>=10) L 02/19/19 06:05 Hep B Core IgM Ab Nonreactive (Nonreactive) 02/19/19 06:05 Hepatitis C Antibody Nonreactive (Nonreactive) 02/19/19 06:05 Hep C Ab Signal/Cutoff 0.12 ratio (<1.00) 02/19/19 06:05 HIV 1&2 Ag/Ab, 4th Gen Non-reactive (Non-reactive) 02/20/19 05:28 HIV 1&2 Antibody Rapid Cancelled 02/20/19 07:00 Medications List Reviewed: Yes Assessment And Plan - Plan Assessment And Plan: A 64-year-old male with, 1. Acute kidney injury superimposed on chronic kidney disease stage 4, now requiring dialysis, likely secondary to acute tubular necrosis from contrast induced nephropathy. The patient requires tunneled catheter. [facility] other surgeon available. Will need to wait till Thursday when surgeon is available. The patient will continue dialysis as scheduled. Appreciate Dr. Ramirez's input. 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 2. Chronic kidney disease stage 4, worsened, now requiring dialysis. Creatinine has stabilized around 5. Will continue to monitor. Electrolytes are stable 3. Coronary artery disease, [place] artery and [place] heart without angina. Hold aspirin and Plavix due to anticipated procedure, stable. 4. Diabetes mellitus type 2 with long-term use of insulin with chronic kidney disease, now on dialysis. Continue Accu-Cheks and sliding scale insulin. 5. Mixed hyperlipidemia, continue statin. 6. Essential hypertension, stable on home medications. 7. Morbid obesity. BMI 41. 8. Chronic back pain. Continue pain control. 9. Obstructive sleep apnea. The patient uses CPAP at night. 10. Deep venous thrombosis prophylaxis. The patient is on heparin renally dosed. 11. Noncompliance intentional Plan: Social service is working on chair time at [facility]. Awaiting dialysis catheter placement once surgeon is available.
--- NOTE | 2019-02-26 16:54 | PN ---
Date of Progress Note: 02/26/2019 Subjective: The patient was admitted with acute kidney injury secondary to cardiorenal/contrast kristofer moon nephropathy. The patient waiting for catheter placement. Physical Examination: Vital Signs: Blood pressure 167/98, pulse of 59. Chest: Clear to auscultation. Heart: S1 and S2, regular. Abdomen: Soft and nontender. Extremities: No edema. Laboratory Data: H and H 14.4/41.3. Sodium 139, potassium 4.3, bicarb 27, BUN 42, creatinine 5, katja cium 8.2. Current Medications: The patient on its include: 1.Atorvastatin. 2.Hydralazine 25 t.i.d. 3.Isosorbide. 4.Bystolic 10 b.i.d. 5.Gabapentin. 6.Lasix 40 daily. 7.Vasotec. 8.Insulin. Assessment And Plan: 1.Acute kidney injury, nonoliguric, normal volume. Waiting for catheter placement and outpatient se tup for dialysis hopefully tomorrow or Thursday. 2.Hypertension, controlled, optimal. Continue current medication. 3.Anemia of chronic kidney disease, stable. Continue KEANU. 4.Coronary artery disease, stable. 5.Congestive heart failure exacerbation, on established better volume control with diuresis and ultr afiltration. ELVIS/SAURABH Voice ID: [id number] Report ID: [id number]
[2019-02-26] MEDS: ISOSORBIDE MONO SR 30 MG TAB PO SCH (16:58)
[2019-02-26] MEDS: GABAPENTIN 300 MG CAP PO SCH (21:38)
[2019-02-26] MEDS: AMITRIPTYLINE 25 MG TAB PO SCH (21:39)
[2019-02-26] MEDS: ATORVASTATIN 80 MG TAB PO SCH (21:40)
[2019-02-26] MEDS: MONTELUKAST 10 MG TAB PO SCH (21:40)
[2019-02-26] MEDS: DULOXETINE 30 MG CAP PO SCH (21:41)
[2019-02-26] MEDS: INSULIN GLARGINE 100 UNITS/ML SQ SCH (21:43)
[2019-02-27] MEDS: HEPARIN 5000 UNIT/ML 1 ML VIAL SQ SCH ×3 (01:40→17:08)
[2019-02-27 05:34] LABS: Absolute Lymphocytes (CBC) 2.5 K/uL (0.7-4.9); Absolute Monocytes 0.7 K/uL (0.1-1.3); Absolute Neutrophil 4.7 K/uL (1.8-8.0); Basophils % 0.7 % (0-1.3); Eosinophils % 5.1 % (0-4.4); Hematocrit 42.3 % (39.6-49.0); Lymphocytes % 29.9 % (15.3-44.8); MPV 9.9 fL (7.6-11.3); Monocytes % 8.1 % (3.3-12.3); RBC Red Blood Cell Count 4.47 M/uL (4.33-5.43)
[2019-02-27 05:55] LABS: Potassium 4.1 mmol/L (3.5-5.1)
[2019-02-27] MEDS: INSULIN -REGULAR HUMAN 50 UNIT/0.5 ML ML SQ SCH ×4 (08:59→21:03)
[2019-02-27] MEDS: CYANOCOBALAMIN 1,000 MCG TAB PO SCH (09:01)
[2019-02-27] MEDS: ICOSAPENT ETHYL 1 GM CAP PO SCH ×2 (09:01→21:03)
[2019-02-27] MEDS: NEBIVOLOL HCL 5 MG TAB PO SCH ×2 (09:02→21:01)
[2019-02-27] MEDS: HYDRALAZINE HCL 25 MG TABLET PO SCH ×3 (09:02→21:02)
[2019-02-27] MEDS: FUROSEMIDE 40 MG/4 ML VIAL IV SCH (09:02)
--- NOTE | 2019-02-27 13:08 | P.PN ---
Subjective Date of Service: 02/27/19 Chief Complaint: Abnormal labs Patient seen and examined chart reviewed and case discussed with RN, Dr. Bermudez and Dr. Ramirez. No acute events overnight. Review of Systems 10-point ROS is otherwise unremarkable Physical Examination - Vital Signs Temperature: 97.7 F Blood Pressure: 166/98 Pulse: 76 Respirations: 16 Pulse Ox (%): 98 - Physical Exam General: Alert, In no apparent distress, Oriented x3, Obese HEENT: Atraumatic, PERRLA, EOMI Neck: Supple, JVD not distended Respiratory: Clear to auscultation bilaterally, Normal air movement Cardiovascular: Regular rate/rhythm, Normal S1 S2, Edema Gastrointestinal: Normal bowel sounds, Soft and benign, Non-distended, No tenderness Musculoskeletal: No tenderness Integumentary: No rashes, No erythema Neurological: Normal speech, Normal tone, Normal affect - Studies Laboratory Last Values WBC 8.4 K/uL (4.3-10.9) 02/27/19 04:44 RBC 4.47 M/uL (4.33-5.43) 02/27/19 04:44 Hgb 14.5 g/dL (13.6-17.9) 02/27/19 04:44 Hct 42.3 % (39.6-49.0) 02/27/19 04:44 MCV 94.6 fL (80-100) 02/27/19 04:44 MCH 32.5 pg (27.0-35.0) 02/27/19 04:44 MCHC 34.3 g/dL (32.0-36.0) 02/27/19 04:44 RDW 12.9 % (12.1-15.2) 02/27/19 04:44 Plt Count 124 K/uL (152-406) L 02/27/19 04:44 MPV 9.9 fL (7.6-11.3) 02/27/19 04:44 Neutrophils % 56.2 % (41.7-73.7) 02/27/19 04:44 Lymphocytes % 29.9 % (15.3-44.8) 02/27/19 04:44 Monocytes % 8.1 % (3.3-12.3) 02/27/19 04:44 Eosinophils % 5.1 % (0-4.4) H 02/27/19 04:44 Basophils % 0.7 % (0-1.3) 02/27/19 04:44 Absolute Neutrophils 4.7 K/uL (1.8-8.0) 02/27/19 04:44 Absolute Lymphocytes 2.5 K/uL (0.7-4.9) 02/27/19 04:44 Absolute Monocytes 0.7 K/uL (0.1-1.3) 02/27/19 04:44 Absolute Eosinophils 0.4 K/uL (0-0.5) 02/27/19 04:44 Absolute Basophils 0.1 K/uL (0-0.5) 02/27/19 04:44 Sodium 138 mmol/L (136-145) 02/27/19 04:44 Potassium 4.1 mmol/L (3.5-5.1) 02/27/19 04:44 Chloride 104 mmol/L (98-107) 02/27/19 04:44 Carbon Dioxide 25 mmol/L (21-32) 02/27/19 04:44 BUN 47 mg/dL (7-18) H 02/27/19 04:44 Creatinine 5.42 mg/dL (0.55-1.3) H* 02/27/19 04:44 Estimated GFR 11 mL/min (=/>90) L 02/27/19 04:44 Glucose 271 mg/dL (74-106) H 02/27/19 04:44 POC Glucose 275 mg/dl (65-120) H 02/27/19 11:40 Hemoglobin A1c 8.0 % (4.2-6.3) H 02/19/19 06:05 Uric Acid 10.6 mg/dL (3.5-7.2) H 02/19/19 06:05 Calcium 8.6 mg/dL (8.5-10.1) 02/27/19 04:44 Phosphorus 5.4 mg/dL (2.5-4.9) H 02/19/19 06:05 Iron 92.0 ug/dL (65-175) 02/19/19 06:05 TIBC 308 ug/dL (250-460) 02/19/19 06:05 Transferrin 220 mg/dL (200-360) 02/19/19 06:05 Transferrin % Sat 29.9 % (20.0-50.0) 02/19/19 06:05 Ferritin 328.7 ng/mL (26-388) 02/19/19 06:05 Total Bilirubin 0.5 mg/dL (0.2-1.0) 02/26/19 05:45 AST 25 U/L (15-37) 02/26/19 05:45 ALT 51 U/L (12-78) 02/26/19 05:45 Alkaline Phosphatase 110 U/L (45-117) 02/26/19 05:45 Serum Total Protein 7.1 g/dL (6.4-8.2) 02/26/19 05:45 Total Protein 7.4 g/dL (6.1-8.1) 02/19/19 06:05 Albumin 3.4 g/dL (3.4-5.0) 02/26/19 05:45 Globulin 3.7 g/dL (2.3-3.5) H 02/26/19 05:45 Albumin/Globulin Ratio 0.9 (1.1-1.8) L 02/26/19 05:45 Ocvpo-0-Frrtvnxei 0.3 g/dL (0.2-0.3) 02/19/19 06:05 Pbqdb-4-Xrjduniui 1.0 g/dL (0.5-0.9) H 02/19/19 06:05 Gamma Globulins 1.3 g/dL (0.8-1.7) 02/19/19 06:05 M-Bharat Report 02/19/19 06:05 M-Bharat 2 INSTANT PRINT OPERATOR 02/19/19 06:05 Abnorm Protein Band 3 INSTANT PRINT OPERATOR 02/19/19 06:05 PEP Interpretation Report 02/19/19 06:05 Vitamin B12 1280 pg/mL (193-986) H 02/19/19 06:05 Serum Folate > 20.0 ng/mL (3.1-17.5) H 02/19/19 06:05 PTH Intact 292.8 pg/mL (18.4-80.1) H 02/19/19 06:05 Urine Color Yellow 02/18/19 21:40 Urine Appearance Clear 02/18/19 21:40 Urine pH 5.5 (5.0-7.0) 02/18/19 21:40 Ur Specific [place] 1.010 (1.005-1.030) 02/18/19 21:40 Urine Ketones Negative (NEG) 02/18/19 21:40 Urine Blood Negative (NEG) 02/18/19 21:40 Urine Nitrite Negative (NEG) 02/18/19 21:40 Urine Bilirubin Negative (NEG) 02/18/19 21:40 Urine Urobilinogen 0.2 mg/dL (0.2-1.0) 02/18/19 21:40 Ur Leukocyte Esterase Negative (NEG) 02/18/19 21:40 Urine RBC None seen /HPF (NONE SEEN) 02/18/19 21:40 Urine WBC None seen /HPF (<5) 02/18/19 21:40 Ur Squamous Epith Cells 5-10 /HPF (NONE SEEN) H 02/18/19 21:40 Ur Urothelial Cells <5 /HPF (NONE SEEN) 02/18/19 21:40 Urine Bacteria <20 /HPF (NONE SEEN) 02/18/19 21:40 Urine Culture Reflexed Not needed 02/18/19 21:40 U Random Total Protein 90 mg/dL (<11.9) H 02/18/19 21:40 U Random IEP Report 02/18/19 21:40 Ur 24 Hour Volume 1350 mL/24 h 02/21/19 Unknown Urine Creatinine 55.0 mg/dL (20-370) 02/18/19 21:40 Protein/Creatinin Ratio 1.64 ratio (<0.15) H 02/18/19 21:40 Urine Glucose Negative (NEG) 02/18/19 21:40 Urine Total Protein 2+ (NEG) H 02/18/19 21:40 U Tot [place] Light 24h 105.71 mg/24 h 02/21/19 Unknown U Tot Lambda Light 24h 44.15 mg/24 h 02/21/19 Unknown Immunofix Electrophor Report 02/19/19 06:05 GLORIA Screen Negative (Negative) 02/19/19 06:05 GLORIA Pattern 2 Not indicated 02/19/19 06:05 Anti-Proteinase 3 <1.0 AI (<1.0) 02/19/19 06:05 Anti-Myeloperoxidase <1.0 AI (<1.0) 02/19/19 06:05 Glomerular Base Mem IgG <1.0 AI (<1.0) 02/19/19 06:05 Complement C3 149 mg/dL (82-185) 02/19/19 06:05 Complement C4 30 mg/dL (15-53) 02/19/19 06:05 Free Kelley LC, Quant 7.83 mg/dL (<2.00) H 02/21/19 Unknown Free Lambda LC, Quant 3.27 mg/dL (<2.00) H 02/21/19 Unknown Hep Bs Antigen Nonreactive (Nonreactive) 02/19/19 06:05 Hep Bs Antibody Nonreactive (Nonreactive) 02/19/19 06:05 Hep Bs Antibody, Quant <5 mIU/mL (>=10) L 02/19/19 06:05 Hep B Core IgM Ab Nonreactive (Nonreactive) 02/19/19 06:05 Hepatitis C Antibody Nonreactive (Nonreactive) 02/19/19 06:05 Hep C Ab Signal/Cutoff 0.12 ratio (<1.00) 02/19/19 06:05 HIV 1&2 Ag/Ab, 4th Gen Non-reactive (Non-reactive) 02/20/19 05:28 HIV 1&2 Antibody Rapid Cancelled 02/20/19 07:00 Medications List Reviewed: Yes Assessment And Plan - Plan Assessment And Plan: A 64-year-old male with, 1. Acute kidney injury superimposed on chronic kidney disease stage 4, now requiring dialysis, likely secondary to acute tubular necrosis from contrast induced nephropathy. The patient requires tunneled catheter. Patient refused to go to [facility] for catheter placement no other surgeon available. Spoke with Dr. Bermudez who may be able to place the catheter tomorrow he is not institutional cook. The patient will continue dialysis as scheduled. Appreciate Dr. Ramirez' s input. 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 2. Chronic kidney disease stage 4, worsened, now requiring dialysis. Creatinine has stabilized around 5. Will continue to monitor. Electrolytes are stable 3. Coronary artery disease, [place] artery and [place] heart without angina. Hold aspirin and Plavix due to anticipated procedure, stable. 4. Diabetes mellitus type 2 with long-term use of insulin with chronic kidney disease, now on dialysis. Continue Accu-Cheks and increase sliding scale insulin to aggressive. Increase Lantus to 25 units bedtime 5. Mixed hyperlipidemia, continue statin. 6. Essential hypertension, stable on home medications. 7. Morbid obesity. BMI 41. 8. Chronic back pain. Continue pain control. 9. Obstructive sleep apnea. The patient uses CPAP at night. 10. Deep venous thrombosis prophylaxis. The patient is on heparin renally dosed. 11. Noncompliance intentional Plan: Social service is working on chair time at [facility]. Awaiting dialysis catheter placement once surgeon is available. NPO after midnight in case surgeon is available for procedure tomorrow
[2019-02-27] MEDS: ISOSORBIDE MONO SR 30 MG TAB PO SCH (17:08)
--- NOTE | 2019-02-27 18:53 | PN ---
Date of Progress Note: 02/27/2019 Subjective: The patient was admitted with acute kidney injury secondary to contrast induced. The pa tient waiting for a PermCath placement. Objective: Vital Signs: Blood pressure 166/98, pulse of 76. Chest: Clear to auscultation. Heart: S1, S2, regular. Abdomen: Soft, nontender. Extremities: Trace edema. Laboratory Data: H and H 14.5/42.3. Sodium 138, potassium 4.1, bicarb 25, BUN 47, creatinine 5, katja cium 8.6. Current Medications: The patient on its include Plavix, heparin, atorvastatin, hydralazine 25 t.i.d. , amitriptyline, Dulcolax, gabapentin, Lasix 40. Assessment And Plan: 1.End-stage renal disease. Normal volume. We will continue dialysis TTS. 2.Secondary hyperparathyroidism, stable. 3.Hypertension. Continue current treatment. Increase hydralazine to 50 mg t.i.d. 4.Anemia of chronic kidney disease, stable. 5.Coronary artery disease, stable. The patient waiting for chair time and hopefully tomorrow, get h is PermCath, then discharge. ELVIS/SAURABH Voice ID: [id number] Report ID: [id number]
[2019-02-27] MEDS ORDERED: INSULIN GLARGINE 100 UNITS/ML SQ SCH (21:00)
[2019-02-27] MEDS: GABAPENTIN 300 MG CAP PO SCH (21:01)
[2019-02-27] MEDS: AMITRIPTYLINE 25 MG TAB PO SCH (21:02)
[2019-02-27] MEDS: ATORVASTATIN 80 MG TAB PO SCH (21:02)
[2019-02-27] MEDS: MONTELUKAST 10 MG TAB PO SCH (21:02)
[2019-02-27] MEDS: DULOXETINE 30 MG CAP PO SCH (21:02)
[2019-02-28] MEDS: HEPARIN 5000 UNIT/ML 1 ML VIAL SQ SCH ×3 (00:02→17:00)
[2019-02-28 05:43] LABS: Potassium 3.9 mmol/L (3.5-5.1)
[2019-02-28] MEDS: INSULIN -REGULAR HUMAN 50 UNIT/0.5 ML ML SQ SCH ×4 (07:30→21:44)
[2019-02-28] MEDS: NEBIVOLOL HCL 5 MG TAB PO SCH ×2 (08:39→21:42)
[2019-02-28] MEDS: HYDRALAZINE HCL 25 MG TABLET PO SCH ×3 (08:39→21:41)
[2019-02-28] MEDS ORDERED: HEPARIN 5000 UNIT/ML 1 ML VIAL ONE (08:52)
[2019-02-28] MEDS ORDERED: NA CHLORIDE 0.9% 100 ML IV ONE (08:53)
[2019-02-28] MEDS ORDERED: LIDOCAINE 1% MPF 30 ML VIAL ONE (08:53)
[2019-02-28] MEDS: CYANOCOBALAMIN 1,000 MCG TAB PO SCH (09:00)
[2019-02-28] MEDS ORDERED: NS 0.9% VIAL 10 ML ONE (09:00)
[2019-02-28] MEDS ORDERED: NA CHLORIDE 0.9% 500 ML ONE (09:09)
[2019-02-28] MEDS ORDERED: CIPROFLOXACIN 400mg IV 400 MG/200 ML BAG IV ONE ×2 (09:09→10:30)
[2019-02-28] MEDS ORDERED: FENTANYL CITR 100 MCG/2 ML ONE (09:24)
[2019-02-28] MEDS ORDERED: MIDAZOLAM HCL 2 MG/2 ML INJ ONE (09:24)
[2019-02-28] MEDS ORDERED: LIDOCAINE 2% MPF 5 ML VIAL ONE (09:24)
[2019-02-28] MEDS ORDERED: PROPOFOL 200 MG/20 ML VIAL IV ONE (09:24)
[2019-02-28] MEDS ORDERED: GLYCOPYRROLATE 0.2 MG/ML SYR ONE ×2 (09:47→09:48)
--- NOTE | 2019-02-28 09:54 | P.OP ---
Preoperative diagnosis: ARF Postoperative diagnosis: same Primary procedure: RIJ Tesio Catheter. Fluoroscopy Anesthesia: General Estimated blood loss: min Specimen: none Findings: Dark Red Non-pulsatile blood returned Complications: None Transferred to: Recovery Room Condition: Good
--- NOTE | 2019-02-28 10:15 | RAD REPORT ---
EXAM DESCRIPTION: RAD - Fluoroscopy <1 Hour - 02/28/2019 10:03 am CLINICAL HISTORY: Venous catheter insertion. TESSIO PLACEMENT COMPARISON: Urinary Bladder dated 07/01/2018 FINDINGS: Fluoroscopic imaging is submitted from placement of a venous catheter. Details of the pro cedure not available. Fluoroscopy time: 0.1 minutes.
--- NOTE | 2019-02-28 10:32 | RAD REPORT ---
EXAM DESCRIPTION: RAD - Chest Single View - 02/28/2019 10:24 am CLINICAL HISTORY: S/P Tesio Chest pain. COMPARISON: Chest Single View dated 10/05/2018; Chest Single View dated 10/01/2018; Chest Pa And Lat (2 Views) dated 08/03/2017; Chest Pa And Lat (2 Views) dated 10/23/2016 FINDINGS: Portable technique limits examination quality. Right-sided venous catheter its tip in the SVC. No postprocedure pneumothorax. The heart is normal in size. No displaced fractures. IMPRESSION: No postprocedure pneumothorax seen.
--- NOTE | 2019-02-28 12:12 | OP ---
Date of Procedure: 02/28/2019 Surgeon: Johan Bermudez MD Preoperative Diagnosis: Acute renal failure. Postoperative Diagnosis: Acute renal failure. Procedures: Placement of right IJ Tesio catheter and interpretation of intraoperative fluoroscopy. Estimated Blood Loss: Minimum Specimen: None. Findings: Normal anatomy. Anesthesia: General. Complications: None. Disposition: The patient tolerated the procedure in stable condition. Taken to Recovery in good gen eral condition. Procedure In Detail: The patient was brought to the OR and placed in supine position. General anest hesia was begun. The patient was prepped and draped in the usual sterile fashion. Lidocaine 1% infi ltrated locally. An 18-gauge needle was used to access the right IJ vein. Guidewire was passed. Po sition was confirmed with fluoroscopy. Counterincision was made on the right chest and then tunnelin g device was used to tunnel the catheter between the 2 wounds. Seldinger technique was used and tip of the catheter was placed in the SVC confirmed by fluoroscopy. Catheter flushed with heparin and pa cked with heparin with good blood flow and then 3-0 chromic used for subcutaneous tissue, 3-0 nylon u sed to secure the tube to the chest wall. Sterile dressing was applied. The patient was awakened an d taken to Recovery in good general condition. Chest x-ray has been ordered. JAMILAH/SAURABH Voice ID: [id number] Report ID: [id number]
[2019-02-28] MEDS: FUROSEMIDE 40 MG/4 ML VIAL IV SCH (12:34)
[2019-02-28] MEDS: ICOSAPENT ETHYL 1 GM CAP PO SCH ×2 (12:34→21:40)
--- NOTE | 2019-02-28 12:41 | P.PN ---
Subjective Date of Service: 02/28/19 Chief Complaint: Abnormal labs Patient seen and examined chart reviewed and case discussed with RN, Dr. Bermudez and Dr. Bowden. No acute events overnight. Patient received his dialysis catheter today Review of Systems 10-point ROS is otherwise unremarkable Physical Examination - Vital Signs Temperature: 97.0 F Blood Pressure: 141/81 Pulse: 58 Respirations: 16 Pulse Ox (%): 99 - Physical Exam General: Alert, In no apparent distress, Oriented x3, Obese HEENT: Atraumatic, PERRLA, EOMI Neck: Supple, JVD not distended Respiratory: Clear to auscultation bilaterally, Normal air movement Cardiovascular: No edema, Normal pulses, Regular rate/rhythm, Normal S1 S2 Gastrointestinal: Normal bowel sounds, Soft and benign, Non-distended, No tenderness Musculoskeletal: No tenderness Integumentary: No rashes, Other (Tesio catheter in place) Neurological: Normal speech, Normal tone, Normal affect - Studies Laboratory Last Values WBC 8.4 K/uL (4.3-10.9) 02/27/19 04:44 RBC 4.47 M/uL (4.33-5.43) 02/27/19 04:44 Hgb 14.5 g/dL (13.6-17.9) 02/27/19 04:44 Hct 42.3 % (39.6-49.0) 02/27/19 04:44 MCV 94.6 fL (80-100) 02/27/19 04:44 MCH 32.5 pg (27.0-35.0) 02/27/19 04:44 MCHC 34.3 g/dL (32.0-36.0) 02/27/19 04:44 RDW 12.9 % (12.1-15.2) 02/27/19 04:44 Plt Count 124 K/uL (152-406) L 02/27/19 04:44 MPV 9.9 fL (7.6-11.3) 02/27/19 04:44 Neutrophils % 56.2 % (41.7-73.7) 02/27/19 04:44 Lymphocytes % 29.9 % (15.3-44.8) 02/27/19 04:44 Monocytes % 8.1 % (3.3-12.3) 02/27/19 04:44 Eosinophils % 5.1 % (0-4.4) H 02/27/19 04:44 Basophils % 0.7 % (0-1.3) 02/27/19 04:44 Absolute Neutrophils 4.7 K/uL (1.8-8.0) 02/27/19 04:44 Absolute Lymphocytes 2.5 K/uL (0.7-4.9) 02/27/19 04:44 Absolute Monocytes 0.7 K/uL (0.1-1.3) 02/27/19 04:44 Absolute Eosinophils 0.4 K/uL (0-0.5) 02/27/19 04:44 Absolute Basophils 0.1 K/uL (0-0.5) 02/27/19 04:44 Sodium 137 mmol/L (136-145) 02/28/19 04:38 Potassium 3.9 mmol/L (3.5-5.1) 02/28/19 04:38 Chloride 102 mmol/L (98-107) 02/28/19 04:38 Carbon Dioxide 25 mmol/L (21-32) 02/28/19 04:38 BUN 55 mg/dL (7-18) H 02/28/19 04:38 Creatinine 5.65 mg/dL (0.55-1.3) H* 02/28/19 04:38 Estimated GFR 10 mL/min (=/>90) L 02/28/19 04:38 Glucose 235 mg/dL (74-106) H 02/28/19 04:38 POC Glucose 258 mg/dl (65-120) H 02/28/19 11:11 Hemoglobin A1c 8.0 % (4.2-6.3) H 02/19/19 06:05 Uric Acid 10.6 mg/dL (3.5-7.2) H 02/19/19 06:05 Calcium 8.6 mg/dL (8.5-10.1) 02/28/19 04:38 Phosphorus 5.4 mg/dL (2.5-4.9) H 02/19/19 06:05 Iron 92.0 ug/dL (65-175) 02/19/19 06:05 TIBC 308 ug/dL (250-460) 02/19/19 06:05 Transferrin 220 mg/dL (200-360) 02/19/19 06:05 Transferrin % Sat 29.9 % (20.0-50.0) 02/19/19 06:05 Ferritin 328.7 ng/mL (26-388) 02/19/19 06:05 Total Bilirubin 0.5 mg/dL (0.2-1.0) 02/26/19 05:45 AST 25 U/L (15-37) 02/26/19 05:45 ALT 51 U/L (12-78) 02/26/19 05:45 Alkaline Phosphatase 110 U/L (45-117) 02/26/19 05:45 Serum Total Protein 7.1 g/dL (6.4-8.2) 02/26/19 05:45 Total Protein 7.4 g/dL (6.1-8.1) 02/19/19 06:05 Albumin 3.4 g/dL (3.4-5.0) 02/26/19 05:45 Globulin 3.7 g/dL (2.3-3.5) H 02/26/19 05:45 Albumin/Globulin Ratio 0.9 (1.1-1.8) L 02/26/19 05:45 Qqttb-4-Trkeknktw 0.3 g/dL (0.2-0.3) 02/19/19 06:05 Jllgm-8-Uotqzggky 1.0 g/dL (0.5-0.9) H 02/19/19 06:05 Gamma Globulins 1.3 g/dL (0.8-1.7) 02/19/19 06:05 M-Bharat Report 02/19/19 06:05 M-Bharat 2 CONTINUITY MANAGER 02/19/19 06:05 Abnorm Protein Band 3 CONTINUITY MANAGER 02/19/19 06:05 PEP Interpretation Report 02/19/19 06:05 Vitamin B12 1280 pg/mL (193-986) H 02/19/19 06:05 Serum Folate > 20.0 ng/mL (3.1-17.5) H 02/19/19 06:05 PTH Intact 292.8 pg/mL (18.4-80.1) H 02/19/19 06:05 Urine Color Yellow 02/18/19 21:40 Urine Appearance Clear 02/18/19 21:40 Urine pH 5.5 (5.0-7.0) 02/18/19 21:40 Ur Specific [place] 1.010 (1.005-1.030) 02/18/19 21:40 Urine Ketones Negative (NEG) 02/18/19 21:40 Urine Blood Negative (NEG) 02/18/19 21:40 Urine Nitrite Negative (NEG) 02/18/19 21:40 Urine Bilirubin Negative (NEG) 02/18/19 21:40 Urine Urobilinogen 0.2 mg/dL (0.2-1.0) 02/18/19 21:40 Ur Leukocyte Esterase Negative (NEG) 02/18/19 21:40 Urine RBC None seen /HPF (NONE SEEN) 02/18/19 21:40 Urine WBC None seen /HPF (<5) 02/18/19 21:40 Ur Squamous Epith Cells 5-10 /HPF (NONE SEEN) H 02/18/19 21:40 Ur Urothelial Cells <5 /HPF (NONE SEEN) 02/18/19 21:40 Urine Bacteria <20 /HPF (NONE SEEN) 02/18/19 21:40 Urine Culture Reflexed Not needed 02/18/19 21:40 U Random Total Protein 90 mg/dL (<11.9) H 02/18/19 21:40 U Random IEP Report 02/18/19 21:40 Ur 24 Hour Volume 1350 mL/24 h 02/21/19 Unknown Urine Creatinine 55.0 mg/dL (20-370) 02/18/19 21:40 Protein/Creatinin Ratio 1.64 ratio (<0.15) H 02/18/19 21:40 Urine Glucose Negative (NEG) 02/18/19 21:40 Urine Total Protein 2+ (NEG) H 02/18/19 21:40 U Tot [place] Light 24h 105.71 mg/24 h 02/21/19 Unknown U Tot [place] Light 24h 44.15 mg/24 h 02/21/19 Unknown Immunofix Electrophor Report 02/19/19 06:05 GLORIA Screen Negative (Negative) 02/19/19 06:05 GLORIA Pattern 2 Not indicated 02/19/19 06:05 Anti-Proteinase 3 <1.0 AI (<1.0) 02/19/19 06:05 Anti-Myeloperoxidase <1.0 AI (<1.0) 02/19/19 06:05 Glomerular Base Mem IgG <1.0 AI (<1.0) 02/19/19 06:05 Complement C3 149 mg/dL (82-185) 02/19/19 06:05 Complement C4 30 mg/dL (15-53) 02/19/19 06:05 Free [place] LC, Quant 7.83 mg/dL (<2.00) H 02/21/19 Unknown Free Lambda LC, Quant 3.27 mg/dL (<2.00) H 02/21/19 Unknown Hep Bs Antigen Nonreactive (Nonreactive) 02/19/19 06:05 Hep Bs Antibody Nonreactive (Nonreactive) 02/19/19 06:05 Hep Bs Antibody, Quant <5 mIU/mL (>=10) L 02/19/19 06:05 Hep B Core IgM Ab Nonreactive (Nonreactive) 02/19/19 06:05 Hepatitis C Antibody Nonreactive (Nonreactive) 02/19/19 06:05 Hep C Ab Signal/Cutoff 0.12 ratio (<1.00) 02/19/19 06:05 HIV 1&2 Ag/Ab, 4th Gen Non-reactive (Non-reactive) 02/20/19 05:28 HIV 1&2 Antibody Rapid Cancelled 02/20/19 07:00 Medications List Reviewed: Yes Assessment And Plan - Plan Assessment And Plan: A 64-year-old male with, 1. Acute kidney injury superimposed on chronic kidney disease stage 4, now requiring dialysis, likely secondary to acute tubular necrosis from contrast induced nephropathy. Tesio catheter placed this morning by Dr. Bermudez. Continue dialysis as scheduled. Appreciate Dr. Ramirez's input. 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 2. Chronic kidney disease stage 4, worsened, now requiring dialysis. Creatinine has stabilized around 5. Will continue to monitor. Electrolytes are stable 3. Coronary artery disease, [place] artery and [place] heart without angina. Resume aspirin and Plavix 24 hr post procedure 4. Diabetes mellitus type 2 with long-term use of insulin with chronic kidney disease, now on dialysis. Continue Accu-Cheks. sliding scale insulin aggressive scale. Increase Lantus to 30 units bedtime. Blood sugars still not well controlled 5. Mixed hyperlipidemia, continue statin. 6. Essential hypertension, stable on home medications. 7. Morbid obesity. BMI 41. 8. Chronic back pain. Continue pain control. 9. Obstructive sleep apnea. The patient uses CPAP at night. 10. Deep venous thrombosis prophylaxis. The patient is on heparin renally dosed. 11. Noncompliance intentional Plan: Social service is working on chair time at [facility]. Dc once setup
--- NOTE | 2019-02-28 14:12 | PREOPCON ---
Date of Consultation: 02/27/2019 Reason: The patient needs a tunnel dialysis catheter. History Of Present Illness: The patient is a 64-year-old gentleman, who came in with acute renal lyndon lure and required dialysis, but he was on blood thinners at that time and could not have a tunnel cat heter, so he had a femoral catheter placed now. The Plavix has been held and he is ready to have a T esio catheter. He is awake and alert. No fever or chills. Review of Systems: Otherwise unremarkable. Past Medical History: Significant for asbestosis; diabetes; GERD; chronic neck, shoulder, and back p ain; hypertension; neuropathy; chronic kidney disease; and hyperlipidemia. Past Surgical History: Hernia surgery, cholecystectomy, back surgery x2, heart catheterization with stent placement. Allergies: REVIEWED. THEY INCLUDE CEFUROXIME, LATEX, NAPROSYN, SULFA, CODEINE, HYDROCODONE, AND TRA MADOL. Social History: The patient does not smoke. Does not drink alcohol. Family History: Noncontributory. Physical Examination: Vital Signs: Stable. He is afebrile. General: He is awake, alert, and oriented x3. Head and Neck: Cranial nerves 2 through 12 are grossly within normal limits. No neck masses. No JV D. Throat clear. Neck is supple. Chest: Clear. Heart: S1 and S2. Abdomen: Soft. Extremities: Neurovascularly intact. Neuro: Nonfocal. Laboratory Data: Reviewed. Platelets are significant for being 124. BUN is 55, creatinine is 5.65. Assessment: Acute renal failure. Recommendations: We will go ahead and place a tunnel catheter in the right side as patient is right handed. The patient understands the risks, benefits, and alternatives and agrees to procedure. /MODL Voice ID: [id number] Report ID: [id number]
[2019-02-28] MEDS ORDERED: ALTEPLASE 2 MG/VIAL IV ONE ×2 (16:18→17:00)
[2019-02-28] MEDS ORDERED: WATER FOR INJ,STERILE 10 ML IV ONE (17:00)
[2019-02-28] MEDS: ISOSORBIDE MONO SR 30 MG TAB PO SCH (17:30)
[2019-02-28] MEDS ORDERED: INSULIN GLARGINE 100 UNITS/ML SQ SCH (21:00)
[2019-02-28] MEDS: GABAPENTIN 300 MG CAP PO SCH (21:41)
[2019-02-28] MEDS: MONTELUKAST 10 MG TAB PO SCH (21:42)
[2019-02-28] MEDS: AMITRIPTYLINE 25 MG TAB PO SCH (21:42)
[2019-02-28] MEDS: ATORVASTATIN 80 MG TAB PO SCH (21:42)
[2019-02-28] MEDS: DULOXETINE 30 MG CAP PO SCH (21:43)
[2019-03-01] MEDS: HEPARIN 5000 UNIT/ML 1 ML VIAL SQ SCH ×2 (00:06→08:27)
[2019-03-01 00:45] VITALS: O2SAT 99
--- NOTE | 2019-03-01 03:55 | PN ---
Date of Progress Note: 02/28/2019 Chief Complaint: Acute on chronic kidney injury. Subjective: The patient has history of coronary artery disease, underwent recently cardiac catheteri zation. Subsequently, he developed severe prerenal azotemia secondary to diuretic and acute tubular necrosis. The patient has advanced chronic kidney disease. Currently, he is undergoing dialysis for acute on chronic kidney disease. There is no evidence of renal function recovery and tunneled dialy sis catheter was placed today. Review of Systems: Denies fever, chills. Physical Examination: Lungs: Few crackles at bases. Heart: S1, S2. Abdomen: Soft, benign. Extremities: Trace edema. Laboratory Data: BUN 47, creatinine 5.0, calcium 8.6. Impression And Plan: 1.End-stage renal disease. Continue dialysis 3 times per week. 2.Secondary hyperparathyroidism. Continue low-phosphorus diet. Adjust binders accordingly and wilfredo tor intact PTH. 3.Hypertension. Blood pressure is controlled. The patient was scheduled to have dialysis with ultr afiltration today. Continue hydralazine for blood pressure control and low-sodium diet. 4.Coronary artery disease, stable. The patient is asymptomatic. EMY/MODL Voice ID: [id number] Report ID: [id number]
[2019-03-01 06:31] LABS: Potassium 3.9 mmol/L (3.5-5.1)
[2019-03-01 07:12] VITALS: BMI 40.3
[2019-03-01] MEDS: INSULIN -REGULAR HUMAN 50 UNIT/0.5 ML ML SQ SCH ×3 (08:25→17:08)
[2019-03-01] MEDS: ICOSAPENT ETHYL 1 GM CAP PO SCH (08:27)
[2019-03-01] MEDS: HYDRALAZINE HCL 25 MG TABLET PO SCH ×2 (08:27→14:28)
[2019-03-01] MEDS: FUROSEMIDE 40 MG/4 ML VIAL IV SCH (08:27)
[2019-03-01] MEDS: CLOPIDOGREL 75 MG TABLET PO SCH (08:27)
[2019-03-01] MEDS: NEBIVOLOL HCL 5 MG TAB PO SCH (08:27)
[2019-03-01] MEDS: CYANOCOBALAMIN 1,000 MCG TAB PO SCH (08:27)
[2019-03-01] MEDS: ASPIRIN 81 MG CHEWABLE TABLET PO SCH (08:28)
--- NOTE | 2019-03-01 11:03 | RAD REPORT ---
EXAM DESCRIPTION: RAD - Neck Soft Tissue - 03/01/2019 10:50 am CLINICAL HISTORY: C/O of pain to right neck after Tesio placed Pain and swelling. COMPARISON: No comparisons FINDINGS: Right-sided internal jugular venous catheter is in place.There is slight kinking of the ca theter tubing at the level the right clavicle.
[2019-03-01 15:53] VITALS: BP 158/82; TEMP 97.8
--- NOTE | 2019-03-01 19:15 | PN ---
Date of Progress Note: 03/01/2019 The patient is awake and alert, complaining of some discomfort in the right neck. X-ray of the soft tissue was done, which showed mild kinking just at the clavicle level. However, the patient underwen t dialysis yesterday without incidence and catheter work. Vital signs are stable. He is afebrile. Examination of the right neck reveals some mild swelling be cause of the surgery, otherwise no acute changes seen since surgery time. Right femoral Gonsalo cath eter were removed. Assessment: Acute renal failure, status post Tesio catheter placement. Recommendations: Heating pad should help with the discomfort. As long as catheter is working, there is no need for changing the catheter at this time. The information should subside in a week or 2 an d hopefully by that time his need for dialysis will subside as his kidney function is slowly improvin g. The patient can be discharged from surgery standpoint. Followup with me in the office when the c atheter is ready to be removed. /MODL Voice ID: [id number] Report ID: [id number]
--- NOTE | 2019-03-02 01:43 | PN ---
Date of Progress Note: 02/28/2019 Chief Complaint: Acute kidney injury on advanced chronic kidney disease resulting in end-stage renal disease. Objective: The patient was started on his chronic dialysis 3 times per week. Recently, he underwent cardiac catheterization. Subsequently, he was found to have worsening of the renal function. Withi n 3 days after cardiac catheterization, renal function has stabilized and the patient was discharged home and receive diuretics. Subsequently, he was admitted to the hospital and was found to have wors ening of the renal function, acute kidney injury and was started on dialysis. Review of Systems: Denies fever or chills. Physical Examination: Lungs: Few crackles at bases. Heart: S1, S2. Abdomen: Soft, benign. Extremities: No edema. Impression And Plan: 1.Mild fluid overload, controlled. Continue low-sodium diet and dialysis with ultrafiltration and c heck daily weight. 2.Secondary hyperparathyroidism. Continue low-phosphorus diet and adjust binders according to statu s of phosphorus level and intact PTH level. 3.Hypertension. Blood pressure is controlled. The patient will have dialysis 3 times per week. Mo nitor electrolytes. Advance low- sodium diet and p.o. fluid restriction. 4.Coronary artery disease, stable, asymptomatic. EB/MODL Voice ID: [id number] Report ID: [id number]
--- NOTE | 2019-03-02 17:12 | P.DS ---
Admission Date: 02/18/19 Discharge Date: 03/01/19 Disposition: ROUTINE DISCHARGE Discharge Condition: FAIR Reason for Admission: Abnormal labs Consultations: General surgery Nephrology Procedures: Temporary dialysis catheter placement/removal HD tunneled catheter placement - Problems (1) BHAVNA (acute kidney injury) Status: Acute (2) Chronic kidney disease (CKD) Onset Date: 10/04/18 Status: Chronic Qualifiers: Chronic kidney disease stage: stage 4 (severe) Qualified Code(s): N18.4 - Chronic kidney disease, stage 4 (severe) (3) CAD (coronary artery disease) Status: Chronic Qualifiers: Coronary Disease-Associated Artery/Lesion type: [place] artery [place] vs. transplanted heart: [place] heart Associated angina: without angina Qualified Code(s): I25.10 - Atherosclerotic heart disease of [place] coronary artery without angina pectoris (4) Diabetes mellitus Status: Acute Qualifiers: Diabetes mellitus type: type 2 Diabetes mellitus oil heaterman insulin use: with oil heaterman use Diabetes mellitus complication status: with kidney complications Diabetes mellitus complication detail: with chronic kidney disease Chronic kidney disease stage: stage 4 (severe) Qualified Code(s): E11.22 - Type 2 diabetes mellitus with diabetic chronic kidney disease; N18.4 - Chronic kidney disease, stage 4 (severe); Z79.4 - residential (current) use of insulin (5) Hyperlipidemia Status: Chronic Qualifiers: Hyperlipidemia type: unspecified Qualified Code(s): E78.5 - Hyperlipidemia , unspecified (6) Hypertension Status: Chronic Qualifiers: Hypertension type: essential hypertension (7) Chronic back pain Onset Date: 10/04/18 Status: Chronic Qualifiers: Back pain location: thoracic back pain Back pain laterality: bilateral Qualified Code(s): M54.6 - Pain in thoracic spine; G89.29 - Other chronic pain (8) Sleep apnea treated with nocturnal BiPAP Onset Date: 10/04/18 Status: Chronic Brief History of Present Illness: This is a 64-year-old man with a history of CKD stage 4, diabetes mellitus, insulin-dependent, hypertension, hyperlipidemia, CAD with recent catheterization and EDITA admitted for acute kidney failure. Patient was recently discharged on 02/07 after a cardiac catheterization. At discharge, patient's creatinine was 2.4. The patient had a follow up in 2 weeks with Nephrology, did blood work yesterday and was found to have creatinine of 5.8 and was told to come to the ER. Patient states that he has been feeling some nausea, otherwise has been asymptomatic. Denies any chest pain, shortness of breath, headache, vision changes, lightheadedness, syncopal/presyncopal episodes , GI or complaints. In the ER, he was hemodynamically stable. His labs were remarkable for creatinine was 6.7, otherwise his labs were normal. At the time of my exam, he was alert oriented x3, in no acute distress and hemodynamically stable. Hospital Course: He was admitted as inpatient as creatinine is greater than 4, along with increasing creatinine from 2.4 to 6. Nephrology was consulted and decision was made that patient will need to be dialyzed temporarily. General surgery was consulted for a temporary catheter placement. Patient underwent multiple sessions of temporary dialysis and the kidney function did improve slightly but continued to remain elevated and stable, prompting the need to change the temp catheter for a tunneled dialysis catheter. Patient continued to get dialysis sessions throughout the stay. Social work was involved to help get chair times setup for outpatient dialysis. Patient stay was delayed as patient did not want to be transferred to [facility] for catheter placement. We had to wait until the surgeon was available here for this catheter placement. Prior to discharge, patient did express some discomfort in the neck region where the catheter was. A soft tissue neck imaging was done, which showed slight kinking of the catheter near the clavicle level. General surgery really evaluated the patient as well. It was decided that since the catheter was working well with dialysis, there was no need to exchange the catheter at this time. Patient's outpatient dialysis times were set up for Thursday, and Thursday. He was then cleared for discharge from nephrology and general surgery point of view. His treatment plan and diagnoses were explained to him, all questions were answered and patient and family verbalized understanding. He was then discharged home in a stable manner. He otherwise remained stable throughout the stay. He will follow up with his primary care physician in 2-3 days. He will follow up with Dr. Bermudez when his tunneled catheter needs to be removed. And he will follow up with Nephrology in 2 weeks. Vital Signs/Physical Exam: Temp Pulse Resp BP Pulse Ox 97.8 F 59 18 158/82 H 100 03/01/19 15:53 03/01/19 15:53 03/01/19 15:53 03/01/19 15:53 03/01/19 15:53 General: Alert, In no apparent distress, Oriented x3, Obese HEENT: Atraumatic, PERRLA, EOMI Neck: Supple, JVD not distended Respiratory: Clear to auscultation bilaterally, Normal air movement Cardiovascular: Regular rate/rhythm, Normal S1 S2 Gastrointestinal: Normal bowel sounds, No tenderness Musculoskeletal: No tenderness Integumentary: No rashes Neurological: Normal speech, Normal tone, Normal affect Lymphatics: No axilla or inguinal lymphadenopathy Laboratory Data at Discharge: WBC 8.4 K/uL (4.3-10.9) 02/27/19 04:44 Hgb 14.5 g/dL (13.6-17.9) 02/27/19 04:44 Hct 42.3 % (39.6-49.0) 02/27/19 04:44 Plt Count 124 K/uL (152-406) L 02/27/19 04:44 Sodium 138 mmol/L (136-145) 03/01/19 05:21 Potassium 3.9 mmol/L (3.5-5.1) 03/01/19 05:21 BUN 42 mg/dL (7-18) H 03/01/19 05:21 Creatinine 4.87 mg/dL (0.55-1.3) H 03/01/19 05:21 Glucose 227 mg/dL (74-106) H 03/01/19 05:21 Uric Acid 10.6 mg/dL (3.5-7.2) H 02/19/19 06:05 Phosphorus 5.4 mg/dL (2.5-4.9) H 02/19/19 06:05 Total Bilirubin 0.5 mg/dL (0.2-1.0) 02/26/19 05:45 AST 25 U/L (15-37) 02/26/19 05:45 ALT 51 U/L (12-78) 02/26/19 05:45 Alkaline Phosphatase 110 U/L (45-117) 02/26/19 05:45 Home Medications: Amitriptyline [Elavil*] 25 mg PO BEDTIME 09/01/16 Aspirin [Arjun Chewable Aspirin] 81 mg PO DAILY 09/01/16 Duloxetine HCl 60 mg PO DAILY 09/01/16 Furosemide 60 mg PO DAILY 09/01/16 Insulin Regular, Human [Humulin R U-500 Kwikpen] 30 unit SQ AC 09/01/16 Isosorbide Mononitrate [Isosorbide Mononitrate ER] 30 mg PO DAILY AFTER SUPPER 09/01/16 Icosapent Ethyl [Vascepa] 2 cap PO BID 10/02/18 Insulin Degludec [Tresiba Flextouch U-100] 75 units SQ DAILY 10/02/18 Montelukast [Singulair*] 10 mg PO BEDTIME 10/02/18 Nebivolol HCl [Bystolic*] 10 mg PO BID 10/02/18 Atorvastatin Calcium [Lipitor] 80 mg PO BEDTIME #30 tab 10/06/18 Clopidogrel Bisulfate [Plavix*] 75 mg PO DAILY #30 tablet 10/06/18 Acetaminophen/Chlorpheniramine [Coricidin Hbp Cold & Flu Tab] 1 tab PO BEDTIME 02/07/19 Cyanocobalamin (Vitamin B-12) [Vitamin B12] 1 tab PO DAILY 02/07/19 Gabapentin 600 mg PO BEDTIME 02/07/19 Patient Discharge Instructions: Please follow up with your primary care physician in 2 days. Continue your outpatient dialysis as scheduled. Follow up with Nephrology in 2 weeks. Follow up with general surgery, Dr. Bermudez once tunelled catheter ready to be removed, as per Nephrology. Please return to the emergency room for worsening symptoms Diet: Renal Activity: Ad evon Followup: Jules Powers MD [ACTIVE - CAN ADMIT] - (call to schedule appointment) Johan Bermudez MD [ACTIVE - CAN ADMIT] - (call to schedule appointment) Misael Charlton MD [Primary Care Provider] - (call to schedule appointment) Time spent managing pt's care (in minutes): 55
== END 2019-03-01 18:21 | disposition home or self-care (01) | DRG 673 ==
LOC: ER 11:37 → ERHOLD 13:30 → 4TH 16:19
PROVIDERS: ADMIT Family Medicine; ATTEND Family Medicine
PROC: 06HM33Z Insertion of Infusion Device into Right Femoral Vein, Percutaneous Approach (ICD-10-PCS; 2019-02-19)
PROC: 5A1D70Z Performance of Urinary Filtration, Intermittent, Less than 6 Hours Per Day (ICD-10-PCS; 2019-02-19)
PROC: 02HV33Z Insertion of Infusion Device into Superior Vena Cava, Percutaneous Approach (ICD-10-PCS; 2019-02-28)
PROC: B5181ZA Fluoroscopy of Superior Vena Cava using Low Osmolar Contrast, Guidance (ICD-10-PCS; 2019-02-28)
PROC: 0JH63XZ Insertion of Tunneled Vascular Access Device into Chest Subcutaneous Tissue and Fascia, Percutaneous Approach (ICD-10-PCS; principal; 2019-02-28 10:45)
DX: N17.0 Acute kidney failure with tubular necrosis (principal); I50.33 Acute on chronic diastolic (congestive) heart failure; I13.2 Hypertensive heart and chronic kidney disease with heart failure and with stage 5 chronic kidney disease, or end stage renal disease; Z68.41 Body mass index [BMI] 40.0-44.9, adult; N18.6 End stage renal disease; N14.1 Nephropathy induced by other drugs, medicaments and biological substances; T50.8X5A Adverse effect of diagnostic agents, initial encounter; I25.10 Atherosclerotic heart disease of native coronary artery without angina pectoris; E11.22 Type 2 diabetes mellitus with diabetic chronic kidney disease; E11.40 Type 2 diabetes mellitus with diabetic neuropathy, unspecified; E78.2 Mixed hyperlipidemia; G47.33 Obstructive sleep apnea (adult) (pediatric); E87.5 Hyperkalemia; E66.01 Morbid (severe) obesity due to excess calories; E11.51 Type 2 diabetes mellitus with diabetic peripheral angiopathy without gangrene; Z91.19 Patient's noncompliance with other medical treatment and regimen; D63.1 Anemia in chronic kidney disease; K21.9 Gastro-esophageal reflux disease without esophagitis; G25.81 Restless legs syndrome; G89.29 Other chronic pain; M54.9 Dorsalgia, unspecified; Z79.4 Long term (current) use of insulin; Z79.82 Long term (current) use of aspirin; Z87.891 Personal history of nicotine dependence; Z95.5 Presence of coronary angioplasty implant and graft; Z88.5 Allergy status to narcotic agent; Z88.2 Allergy status to sulfonamides; Z91.040 Latex allergy status
CPT/HCPCS: 36415; 70360; 71045; 76000; 76770; 80048; 80053; 81003; 81015; 82040; 82570; 82607; 82728; 82746; 82962; 83036; 83520; 83540; 83883; 83970; 84100; 84156; 84165; 84466; 84550; 85025; 86021; 86038; 86160; 86317; 86334; 86335; 86705; 86706; 86803; 87086; 87088; 87340; 87389; 90935; 94760; 96360; 96361; 99285; C1752; J0744; J1644; J1940; J2250; J2405; J2704; J2997; J3010; J7030

== ENCOUNTER 2020-01-20 07:45 | Day surgery (SDC) | payer OTHER ==
--- OUTSIDE RECORDS SUMMARY | 2020-01-20 07:47 | XMS REPORT ---
:1955 Author Organization [facility] t Address [address] [place] [address] Dr. Cleary [address] [place] [id number] Care Team Providers Name Role Phone Unavailable Unavailable Unavailable Problems This patient has no known problems. Allergies, Adverse Reactions, Alerts This patient has no known allergies or adverse reactions. Medications This patient has no known medications.
[2020-01-20] MEDS ORDERED: CEFAZOLIN/SWI 1gm 1 GM/10 ML SYR ONE (08:09)
[2020-01-20] MEDS ORDERED: NA CHLORIDE 0.9% 1,000 ML ONE (08:09)
[2020-01-20 08:18] LABS: Absolute Lymphocytes (CBC) 2.5 K/uL (0.7-4.9); Basophils % 1.1 % (0-1.3); Hematocrit 41.3 % (39.6-49.0); Lymphocytes % 34.2 % (15.3-44.8); MPV 8.5 fL (7.6-11.3); RBC Red Blood Cell Count 4.47 M/uL (4.33-5.43)
[2020-01-20] MEDS ORDERED: propofoL 200 MG/20 ML VIAL IV ONE (08:22)
[2020-01-20] MEDS ORDERED: LIDOCAINE 1% MPF 5 ML VIAL ONE (08:23)
[2020-01-20] MEDS ORDERED: MIDAZOLAM HCL 2 MG/2 ML INJ ONE (08:23)
[2020-01-20] MEDS ORDERED: FENTANYL CITR 100 MCG/2 ML ONE (08:23)
[2020-01-20 08:25] LABS: Potassium 3.7 mmol/L (3.5-5.1)
[2020-01-20] MEDS ORDERED: COLLAGENASE 30 GM OINTMENT TOP ONE (08:32)
[2020-01-20] MEDS ORDERED: ONDANSETRON 4 MG/2 ML VIAL ONE (09:26)
[2020-01-20] MEDS ORDERED: KETOROLAC 30 MG/ML INJ ONE (09:26)
--- NOTE | 2020-01-20 09:31 | RAD REPORT ---
EXAM DESCRIPTION: Watson Luther (2 Views)01/20/2020 8:16 am CLINICAL HISTORY: Preoperative exam COMPARISON: 2019 FINDINGS: The lungs appear clear of acute infiltrate. The heart is normal size IMPRESSION: No acute abnormalities displayed
[2020-01-20] MEDS ORDERED: NS 0.9% VIAL 10 ML ONE (09:44)
[2020-01-20] MEDS ORDERED: EPHEDRINE SULF 50 MG/ML VIAL ONE (09:44)
[2020-01-20] MEDS ORDERED: SILVER SULFADIAZINE 1% 25 GM TOP ONE (09:45)
[2020-01-20 10:06] VITALS: O2SAT 100
[2020-01-20 10:32] VITALS: BP 136/81
[2020-01-20 10:58] VITALS: TEMP 97.9
--- NOTE | 2020-01-20 13:38 | OP ---
Date of Procedure: 01/20/2020 Surgeon: Johan Bermudez MD Preoperative Diagnosis: Nonhealing wound, left hand x2. Postoperative Diagnosis: Nonhealing wound, left hand x2. Procedure: Excisional debridement, left hand wound x2, 5 x 3 cm and 4 x 2 cm. Both to subcutaneous tissue. There was also a deep tissue biopsy done. Estimated Blood Loss: Minimal. Specimen: Culture and sensitivity necrotic tissue and biopsy of the wound. Finding: As above. Anesthesia: General. Complications: None. Patient tolerated the procedure in stable condition, taken to Recovery in good general condition. Procedure In Detail: Patient was brought to the OR and placed in supine position. General anesthesi a was begun. Patient was prepped and draped in usual sterile fashion. Marcaine 0.5% was infiltrated locally. Then, iris scissors and tenotomy scissors were used to excise the nonhealing portion of th e wound 5 x 3 cm on the distal half of the wound, 4 x 2 cm on the proximal and on the dorsum of the l eft hand. This was down through the subcutaneous tissue and then good healthy tissue was obtained. Following which a deep biopsy was done with scissors of the deep dermis and sent to Pathology. Wound irrigated. Bleeding controlled with cautery. Silvadene dressing applied. Patient was awakened and taken to Recovery in good general condition. Discharge Note: The patient will go to Day Surgery and home when stable. Disposition: Home. Condition: Stable. Discharge Instructions: Resume home medications and diet. Activity as tolerated. No heavy lifting. Remove outer dressing in 2 days. Shower. Keep wound clean and dry. Follow up in my office in 1 w [place]. Call for appointment. Tylenol for pain, Keflex 500 mg p.o. q.12, Silvadene 1% to wound daily. /MODL Voice ID: [id number] Report ID: [id number]
--- NOTE | 2020-01-20 14:37 | EKG ---
Test Date: 2020-01-20 Test Time: 08:19:01 Director Of Business Continuity: DOMINGA MEASUREMENT RESULTS: Intervals: Rate: 89 DC: 176 QRSD: 94 QT: 366 QTc: 445 [place]: P: 47 DC: 176 QRS: 22 T: 20 INTERPRETIVE STATEMENTS: Normal sinus rhythm Normal ECG Compared to ECG 10/01/2018 23:19:29 No significant changes Electronically Signed On 01-20-20 14:35:44 CDT by Lucho Little
== END 2020-01-20 10:52 | disposition home or self-care (01) ==
LOC: OR 07:45
PROVIDERS: ATTEND Surgery
PROC: 0JBK0ZZ Excision of Left Hand Subcutaneous Tissue and Fascia, Open Approach (ICD-10-PCS; principal; 2020-01-20 09:00)
DX: S61.402A Unspecified open wound of left hand, initial encounter (principal); I12.0 Hypertensive chronic kidney disease with stage 5 chronic kidney disease or end stage renal disease; E11.22 Type 2 diabetes mellitus with diabetic chronic kidney disease; N18.6 End stage renal disease; E66.01 Morbid (severe) obesity due to excess calories; I25.2 Old myocardial infarction; Z68.41 Body mass index [BMI] 40.0-44.9, adult; Z88.1 Allergy status to other antibiotic agents; Z88.6 Allergy status to analgesic agent; Z91.040 Latex allergy status; Z80.0 Family history of malignant neoplasm of digestive organs; Z80.3 Family history of malignant neoplasm of breast; Z82.5 Family history of asthma and other chronic lower respiratory diseases; Z83.3 Family history of diabetes mellitus
CPT/HCPCS: 93005; 87070; 85025; 80048; 36415; 87205; 82947 ×2; 88304; 88305; 87075; 71046; 11042; 11045; J2704; J3010; J0690; J7030; J2405; J2250; J3590

== ENCOUNTER 2020-05-18 08:29 | Day surgery (SDC) | payer OTHER ==
[2020-05-17 17:13] LABS: Absolute Lymphocytes (CBC) 2.1 K/uL (0.7-4.9); Basophils % 0.7 % (0-1.3); Hematocrit 40.9 % (39.6-49.0); Lymphocytes % 25.6 % (15.3-44.8)
[2020-05-17 17:20] LABS: Potassium 3.4 mmol/L (3.5-5.1)
[2020-05-17 17:21] LABS: Protime INR 0.96
--- OUTSIDE RECORDS SUMMARY | 2020-05-18 08:31 | XMS REPORT | Clinical Summary ---
:1955 Author Organization [facility] Address [address] [place] [address] Care Team Providers Name Role Phone Unavailable Primary Care Provider Unavailable Allergies Not on File Medications Not on file Active Problems Not on file Social History Tobacco Use Types Packs/Day Years Used Date Never Assessed Sex Assigned at Date Recorded Not on file Job Start Date Occupation Industry Not on file Not on file Not on file Travel History Travel Start Travel End No recent travel history available. Last Filed Vital Signs Not on file Plan of Treatment Not on file Results Not on fileafter 05/18/2019 Insurance Payer Benefit Plan / Subscriber ID Type Phone Address Group AETNA - AET[employer] MEDICARE xxxxxxxx [facility] Contracted [phone] [address] MEDICARE MGD HMO POS [id number] [place] [address]
--- OUTSIDE RECORDS SUMMARY | 2020-05-18 08:31 | XMS REPORT | Clinical Summary ---
:1955 Author Organization [facility] Address [address] [place] [address] Care Team Providers Name Role Phone Mario Charlton MD Primary Care Provider Allergies Active Allergy Reactions Severity Noted Date Comments Naproxen Sodium Palpitations Low 04/25/2019 Cefuroxime Axetil Hives 04/25/2019 Codeine 04/25/2019 Severe Headache Hydrocodone Hives 04/25/2019 Latex Rash Low 04/25/2019 Sulfa (Sulfonamide Antibiotics) Hives 9 Tramadol Swelling 04/25/2019 Medications Medication Sig Dispensed Refills Start Date End Date Status insulin regular, Inject 32 0 Act raffaele human (NOVOLIN R Units as REGULAR U-100 directed 3 INSULN INJ) (three) times a day before meals. insulin degludec Inject 70 0 Act raffaele (TRESIBA FLEXTOUCH Units under U-100 SUBQ) the skin daily. DULoxetine Take 60 mg by 0 Activ e (CYMBALTA) 60 MG mouth daily. capsule clopidogrel Take 75 mg by 0 Acti ve (PLAVIX) 75 mg mouth daily. tablet nebivolol Take 5 mg by 0 Active (BYSTOLIC) 5 MG mouth daily. tablet icosapent ethyl Take 2 g by 0 Ac tive (VASCEPA) 1 gram mouth 2 (two) capsule times a day. vit B Take 1 tablet 0 Active complex-vitamin by mouth C-folic acid daily. (DIALYVITE 800) 0.8 mg tablet amitriptyline Take 25 mg by 0 Ac tive (ELAVIL) 25 MG mouth nightly. tablet montelukast Take 10 mg by 0 Acti ve (SINGULAIR) 10 mg mouth nightly. tablet atorvastatin Take 80 mg by 0 Act raffaele (LIPITOR) 80 MG mouth nightly. tablet gabapentin Take 300 mg by 0 Acti ve (NEURONTIN) 300 mg mouth 3 capsule (three) times a day. aspirin (ECOTRIN) Take 81 mg by 0 Active 81 MG enteric mouth daily. coated tablet acetaminophen/chlor Take 2 tablets 0 Active pheniramine by mouth as (CORICIDIN HBP COLD needed. AND FLU ORAL) furosemide (LASIX) Take 40 mg by 0 019 Discontinued 40 mg tablet mouth 2 (two) times a day. 1 / tab acetaminophen-codei Take 1 tablet 30 tablet 0 06/20/201906/27 ne (TYLENOL WITH by mouth every CODEINE #3) 300-30 4 (four) hours mg per as needed for tabletIndications: moderate pain acute pain for up to 7 days .Acute Pain. Active Problems Problem Noted Date ESRD (end stage renal disease) 04/25/2019 Encounters Date Type Specialty Care Team Description 06/20/2019 Anesthesia Event General Surgery Kenneth Augustin MD Cheema, Ivelisse, FNP 06/20/2019 Surgery General Surgery Radha Hutson AV T., MD FISTULA, LEFT U PPER EXTREMITY 06/20/2019 Hospital Encounter General Surgery Radha Htuson MD 06/15/2019 Hospital Encounter Radiology Nestor Augustinop t carleeing Kenneth Preston MD 06/15/2019 Pre-Admit Testing Pre-Admission Radha Hutson Preop testing Appointment Testing MD Jame (Primary Dx) after 05/18/2019 Family History Medical History Relation Name Comments COPD Father Dementia Father Diabetes Mother Heart disease Mother Hypertension Mother Relation Name Status Comments Father Mother Social History Tobacco Use Types Packs/Day Years Used Date Never Smoker Smokeless Tobacco: Current User Snuff Alcohol Use Drinks/Week oz/Week Comments Not Currently Sex Assigned at Date Recorded Not on file Job Start Date Occupation Industry Not on file Not on file Not on file Travel History Travel Start Travel End No recent travel history available. Last Filed Vital Signs Vital Sign Reading Time Taken Comments Blood Pressure 119/71 06/20/2019 12:45 PM CDT Pulse 69 06/20/2019 1:00 PM CDT Temperature 36.5 C (97.7 F) 06/20/2019 12:21 PM CDT Respiratory Rate 20 06/20/2019 12:45 PM CDT Oxygen Saturation 99% 06/20/2019 12:45 PM CDT Inhaled Oxygen Concentration - - Weight 147 kg (325 lb) 06/20/2019 6:52 AM CDT Height 190.5 cm (6' 3") 06/20/2019 6:52 AM CDT Body Mass Index 40.62 06/20/2019 6:52 AM CDT Plan of Treatment Health Maintenance Due Date Last Done Comments COLONOSCOPY SCREENING 2007 SHINGLES VACCINES (#1) 2007 INFLUENZA VACCINE 05/29/2020 Procedures Procedure Name Priority Date/Time Associated Comments Diagnosis POC GLUCOSE Routine 06/20/2019 12:02 Results for this PM CDT procedure are i n the results section. POC GLUCOSE Routine 06/20/2019 11:53 Results for this AM CDT procedure are i n the results section. POC GLUCOSE Routine 06/20/2019 11:26 Results for this AM CDT procedure are i n the results section. POC GLUCOSE Routine 06/20/2019 10:30 Results for this AM CDT procedure are i n the results section. LA AN PERIPHERAL BLOCK Routine 06/20/2019 10:19 R esults for this PROCEDURE FOR PAIN AM CDT procedure are in the results section. POC PANEL 4 Routine 06/20/2019 7:05 Results for this AM CDT procedure are i n the results section. ESTIMATED GFR STAT 06/20/2019 7:00 Results fo r this AM CDT procedure are i n the results section. BASIC METABOLIC PANEL STAT 06/20/2019 7:00 Re sults for this AM CDT procedure are i n the results section. XR CHEST 2 VW Routine 06/15/2019 4:26 Preop testing Results f or this PM CDT procedure are i n the results section. ECG 12-LEAD Routine 06/15/2019 3:38 Preop testing Results fo r this PM CDT procedure are i n the results section. PARTIAL THROMBOPLASTIN Routine 06/15/2019 3:37 R esults for this TIME (PTT) PM CDT procedure are i n the results section. HEMOGLOBIN A1C Routine 06/15/2019 3:37 Preop testing Results for this PM CDT procedure are i n the results section. PROTHROMBIN TIME WITH Routine 06/15/2019 3:37 Preop testing R esults for this INR PM CDT procedure are i n the results section. TYPE AND SCREEN Routine 06/15/2019 2:37 Preop testing Results for this PM CDT procedure are i n the results section. HC COMPLETE BLD COUNT Routine 06/15/2019 2:37 Preop testing R esults for this W/AUTO DIFF PM CDT procedure are i n the results section. after 05/18/2019 Results POC glucose (06/20/2019 12:02 PM CDT)Only the most recent of4 resultswithin the time period is included. Pathologist [facility] nature POC glucose 195 (H) 65 - 99 mg/dL [facility] Comment: [facility] RN Notified No Action Needed Meter ID: [id number] Zig Zag Stitcher: Judah White Specimen Performing Organization Address City/State/Zipcode Phone Number [facility] DEPARTMENT OF PATHOLOGY [address] [facility] [place] [address] AND GENOMIC MEDICINE [facility] [id number] [place] [phone] [facility] Peripheral Block (06/20/2019 10:19 AM CDT) Narrative Performed At Kenneth Augustin MD 05/30 10:25 AM Peripheral Block Date/Time: 06/20/2019 9:11 AM Performed by: Kenneth Augustin MD Authorized by: Kenneth Augustin MD Patient Location: Holding area Start Time: 06/20/2019 8:33 AM End Time: 06/20/2019 9:12 AM Reason for Block: at surgeon's request Staff: Anesthesiologist: Marlyn Augustin MD Resident/DACIA/AA: Amber Hutchins CRNA Preprocedure: patient identified, IV shayne cked, site and side verified, risks and benefits discussed, procedure verified, surgical consent complete, patient position confirmed, mo nitors and equipment checked, pre-op evaluation complete and site patricia ed Time Out Performed: 06/20/2019 8:30 AM Peripheral Nerve Block: Patient Position: Sitting Prep: ChloraPrep Monitoring: Blood pressure monitoring, continuous pulse oximetry and heart rate Block Type: Supraclavicular Laterality: Left Injection Technique: Single injection Procedures: ultrasound guided and nerve stimulator Ultrasound documentation: Printed/plac ed in chart Local Infiltration (See MAR for details) : Bupivacaine Needle: Needle Type: Pajunk Needle Gauge: 19 G Needle Length: 10 cm Assessment: Injection Assessment: Visualized needle/local ane sthetic surrounding nerve, visualized pertinent vascular str uctures and nerves, needle tip visualized at all times during injection of medication, no symptoms of intraneural/intravenous injection and intermittent asp iration during local anesthetic administration Paresthesia Pain: None Heart Rate Change: No Slow Fractionated Injection: Yes Block outcome: No apparent complica tions, patient comfortable and patient tolerated procedure well Notes: Supraclavicular block with 15 ml of 0.5% Ropivacaine and 5 ml of 2% lidocaine, intermittent aspiration and fractionated in jections, Ultrasound guided, with nerve stimulator set at 0.5 mA. Medications Administered Ropivacaine 0.5 % PF (mL), 15 mL POC panel 4 (06/20/2019 7:05 AM CDT) POC sodium 138 135 - 148 [facility] mmol/L [facility] POC potassium 4.0 3.5 - 5.0 [facility] mmol/L [facility] POC hematocrit 39 (L) 41 - 51 % [facility] POC glucose 230 (H) 65 - 99 mg/dL [facility] POC hemoglobin 13.3 (L) 14.0 - 18.0 [facility] Comment: g/dL [place] Meter ID: [id number] HOSPITAL Zig Zag Stitcher: Roshan Corea Specimen Blood Performing Organization Address City/State/Zipcode Phone Number [facility] DEPARTMENT OF PATHOLOGY [address] [facility] [address] AND GENOMIC MEDICINE [facility] [address] [facility] [place] [address] HOSPITAL Estimated GFR (06/20/2019 7:00 AM CDT) Estimated GFR 15 (A) mL/min/1.73 [facility] Comment: m2 [place] Catergory Units Interpretation HOS PITAL G1 >=90 Normal or high G2 60-89 Mildly decreased G3a 45-59 Mildly to moderately decreas ed G3b 30-44 Moderately to severely decre ased G4 15-29 Severely decreased G5 <15 Kidney failure The eGFR was calculated using the Chronic Kidney Disea se Epidemiology Collaboration (CKD-EPI) equation. Interpretation is based on recommendations of the National Kidney Foundation-Kidney Disease Outcomes Griffin lity Initiative (NKF-KDOQI) published in 2014. Specimen Plasma specimen Performing Organization Address City/[facility]/Zipcode Phone Number [facility] DEPARTMENT OF PATHOLOGY [phone] [place] [phone] [facility] [id number] [place] [phone] [place] [address] Basic metabolic panel (06/20/2019 7:00 AM CDT) Pathologist [facility] nature Sodium 137 135 - 148 mEq/L [facility] Potassium 4.4 3.5 - 5.0 mEq/L [facility] Chloride 99 98 - 112 mEq/L [facility] CO2 23 (L) 24 - 31 mEq/L [facility] Anion gap 15@ANIO 7 - 15 mEq/L [facility] BUN 46 (H) 8 - 23 mg/dL [facility] Creatinine 4.00 (H) 0.70 - 1.20 mg/dL [facility] Glucose 234 (H) 65 - 99 mg/dL [facility] Calcium 9.3 8.8 - 10.2 mg/dL [facility] Specimen Plasma specimen Performing Organization Address City/[facility]/Zipcode Phone Number [facility] DEPARTMENT OF PATHOLOGY [id number] [place] [address] X [phone] [address] [facility] XR Chest 2 Vw (06/15/2019 4:26 PM CDT) Specimen Narrative Performed At EXAMINATION: XR CHEST 2 VW [facility]IANT CLINICAL HISTORY: Z01.818 Encounter for other prepro cedural examination, preop COMPARISON: No priors IMPRESSION: Right-sided dialysis catheter tip is at the right atri al level. Heart and mediastinum appropriate for technique. No pneumoth orax. Lungs are clear. No effusions seen. [facility]-[id number] Procedure Note Interface, Radiology Results Incoming - 06/15/2019 4:54 PM CDT EXAMINATION: XR CHEST 2 VW CLINICAL HISTORY: Z01.818 Encounter for other preprocedural examination, preop COMPARISON: No priors IMPRESSION: Right-sided dialysis catheter tip is at the right atrial level. Heart and mediastinum appropriate for technique. No pneumothorax. Lungs are clear. No effusions seen. [facility]-[id number] Performing Organization Address [facility] Phone Number [facility] [address] [place] [address] ECG 12 lead (06/15/2019 3:38 PM CDT) Pathologist Sig nature Ventricular rate 84 [facility] Atrial rate 84 [facility] LA interval 170 [facility] QRSD interval 94 [facility] QT interval 358 [facility] QTC interval [address] [facility] M[facility] P axis 1 26 [facility] QRS axis [address] [facility] T wave axis [address] [facility] EKG impression Normal sinus [facility] MUSE rhythm-Normal ECG-No previous ECGs available-Electronicall y Signed By Leena Alcantara MD ([id number]) on 06/16/2019 4:15:16 PM Specimen Narrative Performed At This result has an attachment that is no t available. Performing Organization Address [facility] Phone Number [facility] MUSE [address] [place] [address] Partial thromboplastin time, activated (06/15/2019 3:37 PM CDT) PTT 28.4 23.0 - 36.0 [facility] Comment: [facility] PTT therapeutic range for unfractionated heparin is HOSPITAL 61.0-112.0 seconds which corresponds to Anti-Xa 0.3-0.7 U/ml. Specimen Blood Performing Organization Address [facility] Phone Number [facility] DEPARTMENT OF PATHOLOGY [address] [place] [address], [place] [phone] AND GENOMIC MEDICINE [facility] [id number] [place] [address], [place] [address] [facility] Prothrombin time with INR (06/15/2019 3:37 PM CDT) Prothrombin time 12.7 11.5 - 14.[address] [facility] INR 1.0 [facility] Comment: DARIUS CRUM [facility] Normalized Ratio (INR) is a therapeu [facility] monitoring tool for patients who are stable on oral anticoagulant therapy. An INR of 2.0-3.0 is suggested for deep vein thrombosis/pulmonary embolism. Specimen Blood Performing Organization Address [facility] Phone Number [facility] DEPARTMENT OF PATHOLOGY [address] [place] [phone] Hemoglobin A1c (06/15/2019 3:37 PM CDT) Hemoglobin A1C 9.7 (H) 4.0 - 5.6 % [facility] Comment: [place] HbA1c cutoffs for diagnosing diabetes: HO [facility]ITAL 4.0% - 5.6% = normal 5.7% - 6.4% = increased risk for diabetes (prediabetes ) >=6.5% = diabetes Goals for glycemic control (ADA 2016) < 7.0% Target for non adults with diabetes. More or less stringent targets may be appropriate for individual patients. <7.5% Target for Children and adolescents with type 1 diabetes. Specimen Blood Performing Organization Address City/State/Zipcode Phone Number [facility] DEPARTMENT OF PATHOLOGY [address] [place] [address] CBC with platelet and differential (06/15/2019 2:37 PM CDT) Pathologist Sig nature WBC 9.7 4.5 - 11.0 k/uL [facility] RBC 4.48 4.40 - 6.00 m/uL [facility] HGB 14.3 14.0 - 18.0 g/dL [facility] HCT 42.1 41.0 - 51.0 % [facility] MCV 94.0 82.0 - 100.[address] [facility] MCH 31.9 27.0 - 34.[address] [facility] MCHC 34.0 31.0 - 37.0 g/dL [facility] RDW - SD 43.9 37.0 - 55.[address] [facility] MPV 10.1 6.9 - 11.[address] [facility] Platelet count 192 150 - 400 K/uL [facility] Nucleated RBC 0.00 /[address] [facility] Neutrophils 63.1 39.0 - 69.0 % [facility] Lymphocytes 26.3 25.0 - 45.0 % [facility] Monocytes 6.6 0.0 - 10.0 % [facility] Eosinophils 3.4 0.0 - 5.0 % [facility] Basophils 0.3 0.0 - 1.0 % [facility] Immature granulocytes 0.3 0.0 - 1.0 % [facility] Specimen Blood Performing Organization Address City/State/Zipcode Phone Number [facility] DEPARTMENT OF PATHOLOGY [id number] [place] [address], [place] [address] [place] [phone] HOSPITAL Type and screen (06/15/2019 2:37 PM CDT) Pathologist Sig nature ABO grouping O [facility] Rh type POS [facility] Antibody screen (gel) NEG [facility] Specimen Blood Performing Organization Address City/[facility]/Zipcode Phone Number [facility] DEPARTMENT OF PATHOLOGY [address] [place] [address], X [address] [place] [address] HOSPITAL after 05/18/2019 ([place]) [address] [place] [address] Advance Directives For more information, please contact: [phone] Type Date Recorded Patient Carrier Associate Explanati on Advance Directives, Living Will 06/15/2019 2:15 PM and Medical Power of Thread Singer
--- OUTSIDE RECORDS SUMMARY | 2020-05-18 08:32 | XMS REPORT | Continuity of Care Document ---
:1955 Author Organization [facility] Address [address] [place] [address] Care Team Providers Name Role Phone Zoltan JARAMILLO, Mario Primary Care Physician Jass JARAMILLO, Javon Attending Clinician Jamari Gallegos Attending Clinician Unavailable Haresh JARAMILLO, T. Attending Clinician Charli JARAMILLO, J. Attending Clinician Geovany SHIRLEY Attending Clinician Payers Payer Name Policy Type Policy Number Effective Date Expiration Date S johan AETNA xxxxxxxx 2016 [place] MEDICAREAETNA 00:00:00 Sabianist MEDICARE HMO/PPO [facility] 6-PresentHMO Problems Condition Condition Condition Status Onset Resolution Last Treating Co mments Source Name Details Category Date Date Treatment Clinician Date ESRD (end ESRD (end Disease Active Valentina ston stage stage 7-29 Methodi renal renal 00:00: st disease) disease) 00 Allergies, Adverse Reactions, Alerts Allergy Allergy Status Severity Reaction(s) Onset Inactive Treating Comm ents Source Name Type Date Date Clinician Naproxen Propensi Active Palpitations [place] Sodium ty to 04-25 Methodi adverse 00:00: st reaction 00 s to drug Cefuroxi Propensi Active Hives [place] ty to 04-25 Methodi Axetil adverse 00:00: st reaction 00 s to drug Codeine Propensi Active Severe Dobbs ty to 04-25 Headache Methodi adverse 00:00: st reaction 00 s to drug Hydrocod Propensi Active Hives [place] one ty to 04-25 Methodi adverse 00:00: st reaction 00 s to drug Latex Propensi Active Rash [place] ty to 04-25 Methodi adverse 00:00: st reaction 00 s to drug Sulfa Propensi Active Hives [place] (Sulfona ty to 04-25 Methodi mide adverse 00:00: st Antibiot reaction 00 ics) s to drug Tramadol Propensi Active Swelling [place] ty to 04-25 Methodi adverse 00:00: st reaction 00 s to drug Family History Family Member Diagnosis Comments Start Date Stop Date Source Natural father COPD [place] [facility] Natural father Dementia [place] [facility] Natural mother Diabetes [place] [facility] Natural mother Heart disease [place] Sabianist Natural mother Hypertension [facility] Social History Social Habit Start Date Stop Date Quantity Comments Source History of Snuff User [place] Method ist tobacco use Sex Assigned At [place] M ethodist Alcohol intake 2019-06-21 2019-06-21 [facility] (finding) Smoking Status Start Date Stop Date Source Never smoker [place] Methodis t Medications Ordered Filled Start Stop Current Ordering Indication Dosage Frequency Signature Comments Components Source Medication Medication Date Date Medication? Clinician (SIG) Name Name insulin Yes 32U Q.[id number] Inject 32 Dobbs regular, - [id number] Units as M ethodi human 13:35: 3D directed 3 st (NOVOLIN R 04 (three) REGULAR times a U-100 day before INSULN INJ) meals. insulin Yes 70U Inject 70 [place] on degludec 9- Units Methodi (TRESIBA 13:35: under the st FLEXTOUCH 04 skin U-100 SUBQ) daily. DULoxetine Yes 60mg QD Take 60 mg [place] (CYMBALTA) 06-20 by mouth Metho di 60 MG 13:35: daily. st capsule 04 clopidogrel Yes 75mg QD Take 75 mg Dobbs (PLAVIX) 75 06-20 by mouth Meth joshua mg tablet 13:35: daily. st 04 nebivolol Yes 5mg QD Take 5 mg Valentina ston (BYSTOLIC) 06-20 by mouth Metho di 5 MG tablet 13:35: daily. st 04 icosapent Yes 2g Q.5D Take 2 g [place] ethyl 06-20 by mouth 2 Methodi (VASCEPA) 1 13:35: (two) st gram 04 times a capsule day. vit B Yes 1{tbl} QD Take 1 Dobbs complex-vit 06-20 tablet by Met catie manley 13:35: mouth st C-folic 04 daily. acid (DIALYVITE 800) 0.8 mg tablet amitriptyli Yes 25mg QD Take 25 mg Dobbs ne (ELAVIL) 06-20 by mouth Meth joshua 25 MG 13:35: nightly. st tablet 04 montelukast Yes 10mg QD Take 10 mg [place]bs (SINGULAIR) 06-20 by mouth Meth joshua 10 mg 13:35: nightly. st tablet 04 atorvastati Yes 80mg QD Take 80 mg Dobbs n (LIPITOR) 06-20 by mouth Meth joshua 80 MG 13:35: nightly. st tablet 04 gabapentin Yes 300mg Q.[id number] Take 300 Dobbs (NEURONTIN) 06-20 [id number] mg by M deanneodi 300 mg 13:35: 3D mouth 3 st capsule 04 (three) times a day. aspirin Yes 81mg QD Take 81 mg [place] (ECOTRIN) 06-20 by mouth Method i 81 MG 13:35: daily. st enteric 04 coated tablet acetaminoph Yes 2{tbl} Take 2 [place] en/chlorphe - tablets by Nc thjoshua niramine 13:35: mouth as st (CORICIDIN 04 needed. HBP COLD AND FLU ORAL) acetaminoph 2019- No acute pain 1{tbl} Q4H Take 1 Dobbs en-codeine 06-20 tablet by Met haddad (TYLENOL 00:00: 23:[address] WITH 00 :00 every 4 CODEINE #3) (four) 300-30 mg hours as per tablet needed for moderate pain for up to 7 days .Acute Pain. furosemide 2018- No 40mg Q.5D Take 40 mg [place]bs (LASIX) 40 06-15 by mouth 2 Me thodi mg tablet 14:48: 00:00 (two) st 23 :00 times a day. 09/29 tab Vital Signs Vital Name Observation Time Observation Value Comments Source Heart rate 2019-06-20 13:00:00 69 /min Rinku Mane Systolic blood 2019-06-20 12:45:00 119 mm[Hg] Artto n Sabianist pressure Diastolic blood 2019-06-20 12:45:00 71 mm[Hg] Duane on Sabianist pressure Respiratory rate 2019-06-20 12:45:00 20 /min Art Mane Oxygen saturation in 2019-06-20 12:45:00 99 /min Rinku Mane Arterial blood by Pulse oximetry Body temperature 2019-06-20 12:21:00 36.5 Jeniffer Art Mane Body height 2019-06-20 06:52:00 190.5 cm Rinku Mane Body weight 2019-06-20 06:52:00 147.419 kg Rinku Mane BMI 2019-06-20 06:52:00 40.62 kg/m2 Rinku Mane Procedures Procedure Date / Time Performing Clinician Source Performed POC GLUCOSE 2019-06-20 12:02:00 Radha Hutson POC GLUCOSE 2019-06-20 11:53:00 Radha Hutson POC GLUCOSE 2019-06-20 11:26:00 Radha Hutson POC GLUCOSE 2019-06-20 10:30:00 Radha Hutson SD AN PERIPHERAL BLOCK 2019-06-20 10:19:39 Duane Augustin PROCEDURE FOR PAIN Kenneth Preston POC PANEL 4 2019-06-20 07:05:00 Radha Hutson BASIC METABOLIC PANEL 2019-06-20 07:00:00 Swapna Augustin ESTIMATED GFR 2019-06-20 07:00:00 Rinku Augustin XR CHEST 2 VW 2019-06-15 16:26:25 Rinku Augustin ECG 12-LEAD 2019-06-15 15:38:35 Rinku Augustin PROTHROMBIN TIME WITH INR 2019-06-15 15:37:00 Jeremiah Augustin HEMOGLOBIN A1C 2019-06-15 15:37:00 Rinku Augustin PARTIAL THROMBOPLASTIN 2019-06-15 15:37:00 Duane Augustin TIME (PTT) Kenneth Preston HC COMPLETE BLD COUNT 2019-06-15 14:37:00 Swapna Augustin W/AUTO DIFF Kenneth Preston TYPE AND SCREEN 2019-06-15 14:37:00 Rinku Augustin Plan of Care Planned Activity Planned Date Details Comments Source Future Scheduled 2020-05-29 INFLUENZA VACCINE Swapna ortiz Sabianist Test 00:00:00 [code = INFLUENZA VACCINE] Future Scheduled 2007 COLONOSCOPY SCREENING Jeremiah nikko Mane Test 00:00:00 [code = COLONOSCOPY SCREENING] Future Scheduled 2007 SHINGLES VACCINES Swapna ortiz Sabianist Test 00:00:00 (#1) [code = SHINGLES VACCINES (#1)] Encounters Start End Encounter Admission Attending Care Care Encounter Source Date/Time Date/Time Type Type Clinicians Facility Department ID 2020-05-16 2020-05-16 [facility] [id number] 08:30:00 23:59:00 Encounter Cristian Pricemia Quinonez [id number] [place] [id number] [place] [id number] 2020-05-16 2020-05-16 Telephone [facility] [id number] 00:00:00 00:00:00 Cristian Javon MULTISPEC 350.1.13.10 [place] [id number] [id number] [place] [facility] 2020-05-10 2020-05-10 Telephone Jass [facility] [id number] 00:00:00 00:00:00 Cristian Javon MULTISPEC [id number] [place] [id number] [id number] [place] [facility] 2020-05-10 2020-05-10 [facility] [id number] 00:00:00 00:00:00 Sandra Kauffman MULTISPEC 350.1.13.10 [place] 4.2.7.2.686 [place] [id number] [place] [facility] Results Test Description Test Time Test Comments Results Result Comments Source POC glucose 2019-06-20 12:09:13 Test Item Value Reference Range Interpretation Comme [facility] POC glucose (test code = 195 mg/dL 65-99 H RN NotifiedNo Action NeededMeter ID: [id number]) [id number] tor: Judah White Lab Interpretation (test code = Abnormal 75969-1) [facility] [id number] 10:19:39Kenneth Augustin MD 06/20/2019 10:25 AMPeripheral BlockDate/Time: 06/20/2019 9:11 AMPerformed by: Kenneth Augustin MDAuthorized by: Kenneth Augustin MD [facility] areaStart Time: 06/20/2019 8:33 AMEnd Time: 06/20/2019 9:12 AMReason for Block: at surgeon's request Staff: Anesthesiologist: Kenneth Augustin MD Resident/DACIA/AA: Josselyn Hutchins CRNAPreprocedure: patient identified, IV checked, site and side verified, risks and benefits discussed, procedure verified, surgical consent complete, patient position confirmed, monitors and equipment checked, pre-op evaluation complete and site marked Time Out Performed: 06/20/2019 8:30 AMPeripheral Nerve Block: Patient Position: Sitting Prep: ChloraPrep Monitoring: Blood pressure monitoring, continuous pulse oximetry and heart rateBlock Type: SupraclavicularLaterality: LeftInjection Technique: Single injectionProcedures: ultrasound guided and nerve stimulator Ultrasound d ocumentation: Printed/placed in chartLocal Infiltration (See MAR for details): BupivacaineNeedle: Needle Type: Pajunk Needle Gauge: 19 G Needle Length: 10 cmAssessment: Injection Assessment: Visualized needle/local anesthetic surrounding nerve, visualized pertinent vascular structures and nerves, needle tip visualized at all times during injection of medication, no symptoms of intraneural/intravenous injection and intermittent aspiration during local anesthetic administration Paresthesia Pain: None Heart Rate Change: No Slow Fractionated Injection: Yes Block outcome: No apparent complications, patient comfortable and patient tolerated procedure wellNotes: Supraclavicular block with 15 ml of 0.5% Ropivacaine and 5 ml of 2% lidocaine, intermittent aspiration and fractionated injections, Ultrasound guided, with nerve stimulator set at 0.5 mA.Medications AdministeredRopivacaine 0.5 % PF (mL), 15 mLOr[place] MethodistBasic metabolic [id number] 07:41:17 Test Item Value Reference Range Interpretation Comments Sodium (test code = 2951-2) 137 135- 148 mEq/L Potassium (test code = 2823-3) 4.4 3.5- 5.0 mEq/L Chloride (test code = 2075-0) 99 98- 112 mEq/L CO2 (test code = 8-9) 23 24- 31 mEq/L L Anion gap (test code = 91018-9) 15@ANIO 7- 15 mEq/L BUN (test code = 3094-0) 46 mg/dL 8-23 H Creatinine (test code = 2160-0) 4.00 mg/dL 0.7-1.2 H Glucose (test code = 2345-7) 234 mg/dL 65-99 H Calcium (test code = 78507-5) 9.3 mg/dL 8.8-10.2 Lab Interpretation (test code = Abnormal 03984-2) Rinku MethodistEstimated [id number] 07:41:16 Test Item Value Reference Range Interpretation Comments Estimated GFR (test 15 mL/min/1.73 m2 Clarence rockwell Units code = 5488) InterpretationG 1 >=90 Taisha l or highG2 60-89 Mildly decrease dG3a 45-59 Mil dly to moderately decr kqqkhA9c 30-44 Moderately to s everely decreasedG4 15-29 Severe ly decreasedG5 <15 Kidney lyndon lureThe eGFR was calcul ated using the Chron ic Kidney Disease Epidemiology Collaboration ( CKD-EPI) equation. Interpretation is based on recommendati ons of the National [facility]-Kidn ey Disease Outcome s Quality Initiat raffaele (NKF-KDOQI) pub lished in 2013. Lab Interpretation Abnormal (test code = 40087-9) [facility] panel [id number] 07:07:12 Test Item Value Reference Range Interpretation Comments POC sodium (test code = 138 mmol/L 919-078 5062-0) POC potassium (test code 4.0 mmol/L 3.5-5 = 6298-4) POC hematocrit (test code 39 % 41-51 L = 4544-3) POC glucose (test code = 230 mg/dL 65-99 H 2339-0) POC hemoglobin (test code 13.3 g/dL 14-[address] ID: = 718-7) [id number]: Roshan Corea Lab Interpretation (test Abnormal code = 44740-5) Rinku ManeEC 12 [id number] 16:15:19 Test Item Value Reference Range Interpretation Comments Ventricular rate (test 84 code = 253) Atrial rate (test code = 84 255) SD interval (test code = 170 266) QRSD interval (test code 94 = 260) QT interval (test code = 358 264) QTC interval (test code 423 = 265) P axis 1 (test code = 26 267) QRS axis 1 (test code = 2 268) T wave axis (test code = 23 270) EKG impression (test Normal sinus code = 273) rhythm-Normal ECG-No previous ECGs available-Electronica lly Signed By Leena Alcantara MD ([id number]) on 06/16/2019 4:15:16 PM Rinku ManeType and [id number] 17:19:00 Test Item Value Reference Range Interpretation Comments ABO grouping (test code = 883-9) O Rh type (test code = 51443-6) POS Antibody screen (gel) (test code = NEG 890-4) Dobbs MethodistXR Chest 2 [id number] 16:51:32Hm Interface, Radiology Results 06/15/2019 4:54 PM CDTEXAMINATION: XR CHEST 2 VWCLINICAL HISTORY: Z01.818 Encounter for other preprocedural examination, preopCOMPARISON: No priorsIMPRESSION:Right-sided dialysis catheter tip is at the right atrial level. Heart and mediastinum appropriatefor technique. No pneumothorax. Lungs are clear. No effusions seen. [facility]-[id number] MethodistPartial thromboplastin time, [id number] 16:29:47 Test Item Value Reference Range Interpretation Comments PTT (test code = 28.4 23.0- 36.0 sec PTT thera peutic range for 3173-2) unfractionated heparin is61.0-112.0 se conds which corresponds to Anti-Xa0.3-0.7 U/ml. [place] MethodistProthrombin time with [id number] 16:28:36 Test Item Value Reference Range Interpretation Comments Prothrombin time (test 12.7 11.5- 14.5 sec code = 5902-2) INR (test code = 1.0 The Interna tional 61458-1) Normalized Rati o (INR) is a therapeutic m onitoring tool for patien ts who are stable on oral anticoagulant t herapy. An INR of 2.0-3.0 is suggested for d eep vein thrombosis/pulm onary embolism. [place] MethodistHemoglobin [id number] 16:13:45 Test Item Value Reference Range Interpretation Comments Hemoglobin A1C (test 9.7 % 4-5.6 H HbA1c c utoffs for code = 04630-2) diagnosing diabetes:4.0% - 5.6% = normal5.7% - 6.4% = increased risk for diabetes (prediabetes) >=6.5% = diabet es Goals for glyce dulce maria control (ADA 20 16)< 7.0% Target fo r non dania lts with diabetes. More or less stringe nt targets may be appropriate for individual bhakti ents. <7.5% Target for Children and adolescents wit h type 1 diabetes. Lab Interpretation (test Abnormal code = 80797-4) Rinku [facility]aneJ[facility] with platelet and [id number] 16:00:46 Test Item Value Reference Range Interpretation Comments WBC (test code = 46817-3) 9.7 4.5- 11.0 k/uL RBC (test code = 61270-5) 4.48 m/uL 4.4-6 HGB (test code = 718-7) 14.3 g/dL 14-18 HCT (test code = 4544-3) 42.1 % 41-51 MCV (test code = 787-2) 94.0 fL 82-100 MCH (test code = 785-6) 31.9 pg 27-34 MCHC (test code = 786-4) 34.0 g/dL 31-37 RDW - SD (test code = 83473-7) 43.9 fL 37-55 MPV (test code = 32057-6) 10.1 fL 6.9-11 Platelet count (test code = 192 K/uL 150-400 65934-1) Nucleated RBC (test code = 93526-5) 0.00 /100 WBC Neutrophils (test code = 26031-1) 63.1 % 39-69 Lymphocytes (test code = 20184-0) 26.3 % 25-45 Monocytes (test code = 36933-7) 6.6 % 0-10 Eosinophils (test code = 11709-1) 3.4 % 0-5 Basophils (test code = 07765-6) 0.3 % 0-1 Immature granulocytes (test code = 0.3 % 0-1 19437-0) Rinku Mane
--- OUTSIDE RECORDS SUMMARY | 2020-05-18 08:32 | XMS REPORT | Summary of Care ---
:1955 Author Organization [facility] Address [address] [place] [address] Care Team Providers Name Role Phone Pcp, Does Not Have A Primary Care Provider Reason for Visit Reason Comments Pre Evaluation Lab work. Encounter Details Date Type Department Care Team Description 04/19/2020 Case Management [facility] Transplant- Diya, Pre Evaluation ([facility] Gisela Olivares MD work.) [facility] [address] [place] [address], [id number] [place] [phone] Allergies Active Allergy Reactions Severity Noted Date Comments Cefuroxime Axetil Hives 12/26/2015 Codeine Unknown - See comments 12/26/2015 Sever e Headache Hydrocodone Other - See comments, 12/26/2015 headac hes Hives Latex Rash Low 04/25/2019 Naproxen Sodium Palpitations Low 12/26/2015 Sulfa (Sulfonamide Hives 04/25/2019 Antibiotics) Tramadol Swelling 12/26/2015 documented as of this encounter (statuses as of 04/19/2020) Medications Medication Sig Dispensed Refills Start Date End Date Status amitriptyline (ELAVIL) Take 25 mg by 99 10/23/2015 Active 25 mg tablet mouth at bedtime. valsartan (DIOVAN) 320 Take 320 mg by 3 11/30/2015 Active mg tablet mouth daily. isosorbide mononitrate Take 30 mg by 3 11/04/2015 Active (IMDUR) 30 mg 24 hr mouth daily. tablet amLODIPine (NORVASC) 5 Take 5 mg by 3 11/08/2015 Active mg tablet mouth daily. TRULICITY 1.5 mg/0.5 mL 1 10/31/2015 Active PnIj BYSTOLIC 10 mg tablet 3 10/03/2015 Active DULoxetine (CYMBALTA) 60 3 12/06/2015 Active mg capsule doxazosin (CARDURA) 1 mg Take 1 mg by 3 12/11/2015 Active tablet mouth daily. GABAPENTIN ORAL Take by mouth. 0 Active documented as of this encounter (statuses as of 04/19/2020) Active Problems Problem Noted Date Right knee pain 12/26/2015 documented as of this encounter (statuses as of 04/19/2020) Social History Tobacco Use Types Packs/Day Years Used Date Never Smoker Smokeless Tobacco: Current User Snuff Alcohol Use Drinks/Week oz/Week Comments No 0 Standard drinks or equivalent 0.0 Sex Assigned at Date Recorded Not on file Job Start Date Occupation Industry Not on file Not on file Not on file Travel History Travel Start Travel End No recent travel history available. documented as of this encounter Last Filed Vital Signs Not on filedocumented in this encounter Progress Notes Aubree Butler RN - 04/19/2020 1:09 PM CDTLab per MD delegation orders for pre kidney transplant evaluation entered into [employer] documented in this encounter Plan of Treatment Date Type Specialty Care Team Description 04/25/2020 Office Visit Nephrology Naila Chi MD [facility] [place] [address] [phone] Name Type Priority Associated Diagnoses Order S chedule C-Peptide, Serum or Plasma LAB Routine End s tage renal disease Expected: Pre-transplant 04/19/2020, E xpires: evaluation for kidney 2020 transplant Other specified pre-operative examination CBC with Differential LAB Routine End stage renal disease Expected: Pre-transplant 04/19/2020, E xpires: evaluation for kidney 2020 transplant Other specified pre-operative examination Prothrombin Time / INR LAB Routine End stage renal disease Expected: Pre-transplant 04/19/2020, E xpires: evaluation for kidney 2020 transplant Other specified pre-operative examination aPTT LAB Routine End stage renal disease Expected: Pre-transplant 04/19/2020, E xpires: evaluation for kidney 2020 transplant Other specified pre-operative examination Complete Metabolic Panel LAB Routine End sta ge renal disease Expected: Pre-transplant 04/19/2020, E xpires: evaluation for kidney 2020 transplant Other specified pre-operative examination ABO RH LAB Routine End stage renal disease Expected: Pre-transplant 04/19/2020, E xpires: evaluation for kidney 2020 transplant Other specified pre-operative examination ABO RH LAB Routine End stage renal disease Expected: Pre-transplant 04/19/2020, E xpires: evaluation for kidney 2020 transplant Other specified pre-operative examination Lipase, Serum LAB Routine End stage renal disease Expected: Pre-transplant 04/19/2020, E xpires: evaluation for kidney 2020 transplant Other specified pre-operative examination Amylase, Serum LAB Routine End stage renal disease Expected: Pre-transplant 04/19/2020, E xpires: evaluation for kidney 2020 transplant Other specified pre-operative examination Intact PTH Calcium Group LAB Routine End sta ge renal disease Expected: Pre-transplant 04/19/2020, E xpires: evaluation for kidney 2020 transplant Other specified pre-operative examination Lipid Panel (Total LAB Routine End stage ashwin al disease Expected: Cholesterol, Triglycerides, Pre-transplan t 04/19/2020, Expires: HDL) evaluation for kidney 2020 transplant Other specified pre-operative examination Misc. Sendout- Drugs of LAB Routine End stag e renal disease Expected: Abuse 9 Panel, Serum or Pre-transplant , Expires: Plasma -[facility]# :[id number] evaluation for ki dney 10/20/2020 (Screen with Reflex to transplan t Confirmation/Quantitation) Other specifie d pre-operative examination Glycosylated Henoglobin LAB Routine End stag e renal disease Expected: (A1C) Pre-transplant 04/19/2020, E xpires: evaluation for kidney 2020 transplant Other specified pre-operative examination Hepatitis B Surface Antigen LAB Routine End stage renal disease Expected: Pre-transplant 04/19/2020, E xpires: evaluation for kidney 2020 transplant Other specified pre-operative examination Hepatitis B Surface Antibody LAB Routine End stage renal disease Expected: Pre-transplant 04/19/2020, E xpires: evaluation for kidney 2020 transplant Other specified pre-operative examination HBC Antibody (IGM & IGG) LAB Routine End sta ge renal disease Expected: Pre-transplant 04/19/2020, E xpires: evaluation for kidney 2020 transplant Other specified pre-operative examination HCV Antibody LAB Routine End stage renal disease Expected: Pre-transplant 04/19/2020, E xpires: evaluation for kidney 2020 transplant Other specified pre-operative examination HAV Antibody (IGG & IGM) LAB Routine End sta ge renal disease Expected: Pre-transplant 04/19/2020, E xpires: evaluation for kidney 2020 transplant Other specified pre-operative examination HIV 1/2 AG-AB WITH REFLEX LAB Routine End st age renal disease Expected: Pre-transplant 04/19/2020, E xpires: evaluation for kidney 2020 transplant Other specified pre-operative examination Cytomegalovirus (CMV) LAB Routine End stage renal disease Expected: Antibody IGG Pre-transplant 04/19/2020, E xpires: evaluation for kidney 2020 transplant Other specified pre-operative examination Yun- Francois Virus (EBV) LAB Routine End st age renal disease Expected: Antibody IGG Pre-transplant 04/19/2020, E xpires: evaluation for kidney 2020 transplant Other specified pre-operative examination Toxoplasma IGG Antibody LAB Routine End stag e renal disease Expected: Pre-transplant 04/19/2020, E xpires: evaluation for kidney 2020 transplant Other specified pre-operative examination HSV 1 and 2 Glycoprotein G LAB Routine End s tage renal disease Expected: IGG Pre-transplant 04/19/2020, E xpires: evaluation for kidney 2020 transplant Other specified pre-operative examination GALV ONLY - SYPHILIS IGG/IGM LAB Routine Pre-transpla nt Expected: evaluation for kidney 2019, Expires: transplant 10/20/2020 Other specified pre-operative examination End stage renal disease VZV Antibody Screen LAB Routine End stage re nal disease Expected: Pre-transplant 04/19/2020, E xpires: evaluation for kidney 2020 transplant Other specified pre-operative examination Thyroid Stimulating Hormone LAB Routine End stage renal disease Expected: (TSH) Pre-transplant 04/19/2020, E xpires: evaluation for kidney 2020 transplant Other specified pre-operative examination Urinalysis (UA) LAB Routine End stage renal disease Expected: Pre-transplant 04/19/2020, E xpires: evaluation for kidney 2020 transplant Other specified pre-operative examination Serum Protein LAB Routine End stage renal disease Expected: Electrophoresis - Age > 40 Pre-transplant 04/19/2020, Expires: years old or UA w/+ protein. evaluation f or kidney 10/20/2020 transplant Other specified pre-operative examination Prostatic Specific Antigen LAB Routine End s tage renal disease Expected: (PSA) Pre-transplant 04/19/2020, E xpires: evaluation for kidney 2020 transplant Other specified pre-operative examination HLA-ABC-DR Typing Renal LAB Routine End stag e renal disease Expected: Pre-transplant 04/19/2020, E xpires: evaluation for kidney 2020 transplant Other specified pre-operative examination Antibody Screen (PRA LAB Routine End stage r enal disease Expected: (RENAL)) Pre-transplant 04/19/2020, E xpires: evaluation for kidney 2020 transplant Other specified pre-operative examination QUANTIFERON-TB GOLD LAB Routine End stage re nal disease Expected: Pre-transplant 04/19/2020, E xpires: evaluation for kidney 2020 transplant Other specified pre-operative examination LYMPHOCYTE CROSSMATCH LAB Routine Pre-transplant Expe cted: evaluation for kidney 2019, Expires: transplant 10/20/2020 Other specified pre-operative examination End stage renal disease Health Maintenance Due Date Last Done Comments HEPATITIS C (HCV) SCREEN 1955 DTaP,Tdap,and Td Vaccines (1 - 01/18/1968 Tdap) COLONOSCOPY 2007 Zoster Recombinant Vaccine 2007 (SHINGRIX) (1 of 2) INFLUENZA VACCINE (#1) 2020 Depression Screening 12/08/2020 12/09/2019 PNEUMOCOCCAL 0-64 YEARS COMBINED Aged Out No longer eligible based on SERIES patient's age to complete this topic documented as of this encounter Results Not on filedocumented in this encounter Visit Diagnoses Diagnosis Pre-transplant evaluation for kidney tra nsplant - Primary Other specified pre-operative examinatio n End stage renal disease documented in this encounter Insurance Payer Benefit Plan Subscriber ID Effective Phone Address Typ e / Group Dates AETNA - AETNA [id number] 2019-Porsha Barahona MANAGED MEDICARE ADV nt [id number] [place] [address] documented as of this encounter
--- OUTSIDE RECORDS SUMMARY | 2020-05-18 08:32 | XMS REPORT | Summary of Care ---
:1955 Author Organization [facility] Address [address] [place] [address] Care Team Providers Name Role Phone Pcp, Does Not Have A Primary Care Provider Reason for Visit Reason Comments Pre Evaluation Med list Encounter Details Date Type Department Care Team Description 04/24/2020 Case Management [facility] Transplant- Koki Chi re Evaluation ([facility] Damaso [facility] MD list) [facility] C[facility] [address] [facility] [address] [facility], [place] [phone] Allergies Active Allergy Reactions Severity Noted Date Comments Cefuroxime Axetil Hives 12/26/2015 Codeine Unknown - See comments 12/26/2015 Sever e Headache Hydrocodone Other - See comments, 12/26/2015 headac hes Hives Latex Rash Low 04/25/2019 Naproxen Sodium Palpitations Low 12/26/2015 Sulfa (Sulfonamide Hives 04/25/2019 Antibiotics) Tramadol Swelling 12/26/2015 documented as of this encounter (statuses as of 04/24/2020) Medications Medication Sig Dispensed Refills Start Date [...] mg tablet 3 10/03/2015 Active DULoxetine (CYMBALTA) 3 12/06/2015 Active 60 mg capsule doxazosin (CARDURA) 1 Take 1 mg by 3 12/11/2015 Active mg tablet mouth daily. GABAPENTIN ORAL Take by mouth. 0 Active gabapentin 300 mg Take 300 mg by 0 Active capsule mouth 3 (three) times daily. Insulin Regular Human inject 35 Units 0 Active (NOVOLIN R FLEXPEN) 100 under the skin 3 unit/mL (3 mL) InPn (three) times daily before meals. insulin degludec inject 80 Units 0 Active (TRESIBA FLEXTOUCH under the skin U-100) 100 unit/mL (3 daily before a mL) InPn meal. clopidogreL 75 mg Take 75 mg by 0 Active tablet mouth daily. furosemide 80 mg tablet Take 80 mg by 0 Active mouth. Takes on non dialysis days, S,M,W and F folic acid/vit B Take 1 tablet by 0 Active complex and C mouth daily. (DIALYVITE 800 ORAL) losartan 25 mg tablet Take 25 mg by 0 Active mouth daily. ALBUTEROL INHALE Inhale 2 Puffs 4 0 Active (four) times daily as needed. aspirin 81 mg chewable Take 81 mg by 0 Active tablet mouth daily. Chlorpheniramine-Acetam Take 1 tablet by 0 Active inophen (CORICIDIN HBP mouth at bedtime. COLD AND FLU) 2-325 mg Tab fluticasone furoate Inhale 1 Puff 0 Active (ARNUITY ELLIPTA) 200 daily. mcg/actuation DsDv documented as of this encounter (statuses as of 04/24/2020) Active Problems Problem Noted Date Right knee pain 12/26/2015 documented as of this encounter (statuses as of 04/24/2020) Social History Tobacco Use Types Packs/Day Years Used Date Never Smoker Smokeless Tobacco: Current User Snuff Alcohol Use Drinks/Week oz/Week Comments No 0 Standard drinks or equivalent 0.0 Sex Assigned at Date Recorded Not on file Job Start Date Occupation Industry Not on file Not on file Not on file Travel History Travel Start Travel End No recent travel history available. COVID-19 Exposure Response Date Recorded In the last month, have you been in contact with No / Unsure 04/20/2020 1:25 PM CDT someone who was confirmed or suspected to have Coronavirus / COVID-19? documented as of this encounter Last Filed Vital Signs Not on filedocumented in this encounter Progress Notes Aubree Butler RN - 04/24/2020 12:32 PM CDTI contacted the patient to obtain a current medication list in preparation for his upcoming kidney tr ansplant face to face visit. Meds entered into [employer]. 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
--- OUTSIDE RECORDS SUMMARY | 2020-05-18 08:33 | XMS REPORT | Summary of Care ---
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 [facility] Jorge Chi MD [address] [place] [address] End stage renal disease; [facility] Pre-transplant evaluation for kidney tra nsplant; [address] [facility] Other [place] [phone] Allergies Active Allergy Reactions Severity Noted Date Comments Cefuroxime Axetil Hives 12/26/2015 Codeine Unknown - See comments 12/26/2015 Sever e Headache Hydrocodone Other - See comments, 12/26/2015 headac hes Hives Latex Rash Low 04/25/2019 Naproxen Sodium Palpitations Low 12/26/2015 Sulfa (Sulfonamide Hives 04/25/2019 Antibiotics) Tramadol Swelling 12/26/2015 documented as of this encounter (statuses as of 04/25/2020) Medications Medication Sig Dispensed Refills Start Date [...] as of this encounter (statuses as of 04/25/2020) Active Problems Problem Noted Date Right knee pain 12/26/2015 documented as of this encounter (statuses as of 04/25/2020) Social History Tobacco Use Types Packs/Day Years [...] Signs Not on filedocumented in this encounter Plan of Treatment Name Type Priority Associated Diagnoses Date/Ti me QUANTIFERON-TB GOLD LAB Routine End stage re nal disease 04/25/2020 12:21 PM Pre-transplant CDT evaluation for kidney transplant Other specified pre-operative examination Prostatic Specific Antigen LAB Routine End s tage renal disease 04/25/2020 12:21 PM (PSA) Pre-transplant CDT evaluation for kidney transplant Other specified pre-operative examination Serum Protein LAB Routine End stage renal disease 04/25/2020 12:21 PM Electrophoresis - Age > 40 Pre-transplant CDT years old or UA w/+ evaluation for kidney protein. transplant Other specified pre-operative examination Urinalysis (UA) LAB Routine End stage renal disease 04/25/2020 12:21 PM Pre-transplant CDT evaluation for kidney transplant Other specified pre-operative examination Thyroid Stimulating Hormone LAB Routine End stage renal disease 04/25/2020 12:21 PM (TSH) Pre-transplant CDT evaluation for kidney transplant Other specified pre-operative examination VZV Antibody Screen LAB Routine End stage re nal disease 04/25/2020 12:21 PM Pre-transplant CDT evaluation for kidney transplant Other specified pre-operative examination GALV ONLY - SYPHILIS LAB Routine Pre-transplant 04/25 12:21 PM IGG/IGM evaluation for kidney CDT transplant Other specified pre-operative examination End stage renal disease HSV 1 and 2 Glycoprotein G LAB Routine End s tage renal disease 04/25/2020 12:21 PM IGG Pre-transplant CDT evaluation for kidney transplant Other specified pre-operative examination Toxoplasma IGG Antibody LAB Routine End stag e renal disease 04/25/2020 12:21 PM Pre-transplant CDT evaluation for kidney transplant Other specified pre-operative examination Yun- Francois Virus (EBV) LAB Routine End st age renal disease 04/25/2020 12:21 PM Antibody IGG Pre-transplant CDT evaluation for kidney transplant Other specified pre-operative examination Cytomegalovirus (CMV) LAB Routine End stage renal disease 04/25/2020 12:21 PM Antibody IGG Pre-transplant CDT evaluation for kidney transplant Other specified pre-operative examination HIV 1/2 AG-AB WITH REFLEX LAB Routine End st age renal disease 04/25/2020 12:21 PM Pre-transplant CDT evaluation for kidney transplant Other specified pre-operative examination HAV Antibody (IGG & IGM) LAB Routine End sta ge renal disease 04/25/2020 12:21 PM Pre-transplant CDT evaluation for kidney transplant Other specified pre-operative examination HCV Antibody LAB Routine End stage renal disease 04/25/2020 12:21 PM Pre-transplant CDT evaluation for kidney transplant Other specified pre-operative examination HBC Antibody (IGM & IGG) LAB Routine End sta ge renal disease 04/25/2020 12:21 PM Pre-transplant CDT evaluation for kidney transplant Other specified pre-operative examination Hepatitis B Surface LAB Routine End stage re nal disease 04/25/2020 12:21 PM Antibody Pre-transplant CDT evaluation for kidney transplant Other specified pre-operative examination Hepatitis B Surface Antigen LAB Routine End stage renal disease 04/25/2020 12:21 PM Pre-transplant CDT evaluation for kidney transplant Other specified pre-operative examination Glycosylated Henoglobin LAB Routine End stag e renal disease 04/25/2020 12:21 PM (A1C) Pre-transplant CDT evaluation for kidney transplant Other specified pre-operative examination Misc. Sendout- Drugs of LAB Routine End stag e renal disease 04/25/2020 12:21 PM Abuse 9 Panel, Serum or Pre-transplant CD T Plasma -[facility]# :[id number] evaluation for ki dney (Screen with Reflex to transplan t Confirmation/Quantitation) Other specifie d pre-operative examination Lipid Panel (Total LAB Routine End stage ashwin al disease 04/25/2020 12:21 PM Cholesterol, Triglycerides, Pre-transplan t CDT HDL) evaluation for kidney transplant Other specified pre-operative examination Intact PTH Calcium Group LAB Routine End sta ge renal disease 04/25/2020 12:21 PM Pre-transplant CDT evaluation for kidney transplant Other specified pre-operative examination Amylase, Serum LAB Routine End stage renal disease 04/25/2020 12:21 PM Pre-transplant CDT evaluation for kidney transplant Other specified pre-operative examination Lipase, Serum LAB Routine End stage renal disease 04/25/2020 12:21 PM Pre-transplant CDT evaluation for kidney transplant Other specified pre-operative examination Complete Metabolic Panel LAB Routine End sta ge renal disease 04/25/2020 12:21 PM Pre-transplant CDT evaluation for kidney transplant Other specified pre-operative examination aPTT LAB Routine End stage renal disease 04/25/2020 12:21 PM Pre-transplant CDT evaluation for kidney transplant Other specified pre-operative examination Prothrombin Time / INR LAB Routine End stage renal disease 04/25/2020 12:21 PM Pre-transplant CDT evaluation for kidney transplant Other specified pre-operative examination CBC with Differential LAB Routine End stage renal disease 04/25/2020 12:21 PM Pre-transplant CDT evaluation for kidney transplant Other specified pre-operative examination C-Peptide, Serum or Plasma LAB Routine End s tage renal disease 04/25/2020 12:21 PM Pre-transplant CDT evaluation for kidney transplant Other specified pre-operative examination Health Maintenance Due Date Last Done Comments [...] filedocumented in this encounter Visit Diagnoses Diagnosis End stage renal disease Pre-transplant evaluation for kidney tra nsplant Other specified pre-operative examinatio n documented in this encounter Insurance Payer Benefit Plan Subscriber ID Effective Phone Address Typ e / Group Dates AETNA - AETNA [id number] 2019-Prese [address] Me dicare Adv MANAGED MEDICARE ADV nt [id number] [place] [address] documented as of this encounter
--- OUTSIDE RECORDS SUMMARY | 2020-05-18 08:34 | XMS REPORT | Summary of Care ---
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 [facility] Jorge Chi MD [address] [place] [address] End stage renal disease; MULTISPECIALTY [facility] Pre-transplant evaluation for kidney tra nsplant; [address] [facility] Other [place] [address] Allergies Active Allergy Reactions Severity Noted Date Comments Cefuroxime Axetil Hives 12/26/2015 Codeine Unknown - See comments 12/26/2015 Sever e Headache Hydrocodone Other - See comments, 12/26/2015 headac hes Hives Latex Rash Low 04/25/2019 Naproxen Sodium Palpitations Low 12/26/2015 Sulfa (Sulfonamide Hives 04/25/2019 Antibiotics) Tramadol Swelling 12/26/2015 documented as of this encounter (statuses as of 04/27/2020) Medications Medication Sig Dispensed Refills Start Date [...] as of this encounter (statuses as of 04/27/2020) Active Problems Problem Noted Date Right knee pain 12/26/2015 documented as of this encounter (statuses as of 04/27/2020) Social History Tobacco Use Types Packs/Day Years [...] kidney protein. transplant Other specified pre-operative examination Misc. Sendout- Drugs of LAB Routine End stag e renal disease 04/25/2020 12:21 PM Abuse 9 Panel, Serum or Pre-transplant CD T Plasma -RUST# :[id number] evaluation for ki dney (Screen with Reflex to transplan t Confirmation/Quantitation) Other specifie d pre-operative examination C-Peptide, Serum or Plasma LAB Routine End s tage renal disease 04/25/2020 12:21 PM Pre-transplant CDT evaluation for kidney transplant Other specified pre-operative examination Health Maintenance Due Date Last Done Comments DTaP,Tdap,and Td Vaccines (1 - 01/18/1968 Tdap) COLONOSCOPY 2007 Zoster Recombinant Vaccine 2007 (SHINGRIX) (1 of 2) INFLUENZA VACCINE (#1) 2020 Depression Screening 12/08/2020 12/09/2019 HEPATITIS C (HCV) SCREEN Completed 04/25/2020 PNEUMOCOCCAL 0-64 YEARS COMBINED Aged Out No longer eligible based on SERIES patient's age to complete this topic documented as of this encounter Procedures Procedure Name Priority Date/Time Associated Comments Diagnosis LOW-DENSITY Routine 04/25/2020 12:21 End stage renal Results for this LIPOPROTEIN, DIRECT PM CDT disease procedure are in Pre-transplant the results evaluation for section. kidney transplan t Other specified pre-operative examination GALV ONLY - SYPHILIS Routine 04/25/2020 12:21 Pre-transplant R esults for this IGG/IGM PM CDT evaluation for procedure are in kidney transplan t the results Other specified section. pre-operative examination End stage renal disease HIV 1/2 AG-AB WITH Routine 04/25/2020 12:21 End stage renal Re sults for this REFLEX PM CDT disease procedure are in Pre-transplant the results evaluation for section. kidney transplan t Other specified pre-operative examination HSV 1 AND 2 Routine 04/25/2020 12:21 End stage renal Results for this GLYCOPROTEIN G IGG PM CDT disease procedure are in Pre-transplant the results evaluation for section. kidney transplan t Other specified pre-operative examination HAV ANTIBODY (IGG AND Routine 04/25/2020 12:21 End stage renal Results for this IGM) PM CDT disease procedure are in Pre-transplant the results evaluation for section. kidney transplan t Other specified pre-operative examination HB ABO GROUPING Routine 04/25/2020 12:21 End stage renal Resul ts for this PM CDT disease procedure are in Pre-transplant the results evaluation for section. kidney transplan t Other specified pre-operative examination HBC ANTIBODY (IGM & Routine 04/25/2020 12:21 End stage renal R esults for this IGG) PM CDT disease procedure are in Pre-transplant the results evaluation for section. kidney transplan t Other specified pre-operative examination HCV ANTIBODY Routine 04/25/2020 12:21 End stage renal Results for this PM CDT disease procedure are in Pre-transplant the results evaluation for section. kidney transplan t Other specified pre-operative examination HEPATITIS B SURFACE Routine 04/25/2020 12:21 End stage renal R esults for this ANTIGEN PM CDT disease procedure are in Pre-transplant the results evaluation for section. kidney transplan t Other specified pre-operative examination HEPATITIS B SURFACE Routine 04/25/2020 12:21 End stage renal R esults for this ANTIBODY PM CDT disease procedure are in Pre-transplant the results evaluation for section. kidney transplan t Other specified pre-operative examination VZV ANTIBODY SCREEN Routine 04/25/2020 12:21 End stage renal R esults for this PM CDT disease procedure are in Pre-transplant the results evaluation for section. kidney transplan t Other specified pre-operative examination CYTOMEGALOVIRUS Routine 04/25/2020 12:21 End stage renal Resul ts for this ANTIBODY IGG PM CDT disease procedure are in Pre-transplant the results evaluation for section. kidney transplan t Other specified pre-operative examination EBV VIRAL CAPSID IGG Routine 04/25/2020 12:21 End stage renal Results for this ANTIBODY PM CDT disease procedure are in Pre-transplant the results evaluation for section. kidney transplan t Other specified pre-operative examination TOXOPLASMA IGG ANTIBODY Routine 04/25/2020 12:21 End stage ashwin al Results for this PM CDT disease procedure are in Pre-transplant the results evaluation for section. kidney transplan t Other specified pre-operative examination URINALYSIS Routine 04/25/2020 12:21 End stage renal Results for this PM CDT disease procedure are in Pre-transplant the results evaluation for section. kidney transplan t Other specified pre-operative examination ACTIVATED PARTIAL Routine 04/25/2020 12:21 End stage renal Res ults for this THRMPLAS EHSAN PM CDT disease procedure are in Pre-transplant the results evaluation for section. kidney transplan t Other specified pre-operative examination PROTHROMBIN TIME / INR Routine 04/25/2020 12:21 End stage jerome l Results for this PM CDT disease procedure are in Pre-transplant the results evaluation for section. kidney transplan t Other specified pre-operative examination GLYCOSYLATED HEMOGLOBIN Routine 04/25/2020 12:21 End stage ashwin al Results for this (A1C) PM CDT disease procedure are in Pre-transplant the results evaluation for section. kidney transplan t Other specified pre-operative examination CBC WITH DIFF Routine 04/25/2020 12:21 End stage renal Results for this PM CDT disease procedure are in Pre-transplant the results evaluation for section. kidney transplan t Other specified pre-operative examination INTACT PTH CALCIUM Routine 04/25/2020 12:21 End stage renal Re sults for this GROUP PM CDT disease procedure are in Pre-transplant the results evaluation for section. kidney transplan t Other specified pre-operative examination LIPID PANEL Routine 04/25/2020 12:21 End stage renal Results for this ([id number])(TOTAL PM CDT disease procedure are in CHOLESTEROL, Pre-transplant the results TRIGLYCERIDES, HDL) evaluation for sectio n. kidney transplan t Other specified pre-operative examination COMP. METABOLIC PANEL Routine 04/25/2020 12:21 End stage renal Results for this (49534) PM CDT disease procedure are in Pre-transplant the results evaluation for section. kidney transplan t Other specified pre-operative examination THYROID STIMULATING Routine 04/25/2020 12:21 End stage renal R esults for this HORMONE PM CDT disease procedure are in Pre-transplant the results evaluation for section. kidney transplan t Other specified pre-operative examination PROSTATIC SPECIFIC Routine 04/25/2020 12:21 End stage renal Re sults for this ANTIGEN PM CDT disease procedure are in Pre-transplant the results evaluation for section. kidney transplan t Other specified pre-operative examination LIPASE Routine 04/25/2020 12:21 End stage renal Results for this PM CDT disease procedure are in Pre-transplant the results evaluation for section. kidney transplan t Other specified pre-operative examination AMYLASE Routine 04/25/2020 12:21 End stage renal Results for this PM CDT disease procedure are in Pre-transplant the results evaluation for section. kidney transplan t Other specified pre-operative examination HB ABO GROUPING Routine 04/25/2020 12:16 End stage renal Resul ts for this PM CDT disease procedure are in Pre-transplant the results evaluation for section. kidney transplan t Other specified pre-operative examination documented in this encounter Results LOW-DENSITY LIPOPROTEIN, DIRECT (04/25/2020 12:21 PM CDT) Pathologist Sig brenton dLDL Chol 82 <130 mg/dL [facility] SERVICES Specimen Blood - ARM, RIGHT Performing Organization Address City/State/Zipcode Phone Number [facility] CLIA: [id number], [address] [place] [address] 555 [facility] CBC with Differential (04/25/2020 12:21 PM CDT) Pathologist Sig [facility] WBC 7.53 4.20 - 10.70 [facility] 10*3/L [facility] RBC 4.34 4.26 - 5.52 [facility] 10*6/L [facility] HGB 13.9 12.2 - 16.4 g/dL [facility] HCT 41.0 38.4 - 49.3 % [facility] MCV 94.5 81.7 - 95.6 fL [facility] MCH 32.0 26.1 - 32.7 pg [facility] MCHC 33.9 31.2 - 35.0 g/dL [facility] SERVICES-[facility] RDW-SD 46.2 38.5 - 51.6 fL [facility] SERVICES[facility] RDW-CV 13.3 12.1 - 15.4 % [facility] PLT 262 150 - 328 [facility] 10*3/L [facility] MPV 10.1 9.8 - 13.0 fL [facility] NRBC/100 WBC 0.0 0.0 - 10.0 /100 [facility] WBCs [facility] NRBC x10^3 <0.01 10*3/L [facility] GRAN MAT (NEUT) % 58.2 % [facility] SERVICES-[facility] IMM GRAN % 0.30 % [facility] LYMPH % 30.0 % [facility] MONO % 6.4 % [facility] EOS % 4.4 % [facility] BASO % 0.7 % [facility] GRAN MAT x10^3(ANC) 4.39 1.99 - 6.95 [facility] 10*3/uL [facility] IMM GRAN x10^3 <0.03 0.00 - 0.06 [facility] 10*3/uL [facility] LYMPH x10^3 2.26 1.09 - 3.23 [facility] 10*3/uL [facility] MONO x10^3 0.48 0.36 - 1.02 [facility] 10*3/uL [facility] EOS x10^3 0.33 0.06 - 0.53 [facility] 10*3/uL SERVICES-[facility] BASO x10^3 0.05 0.01 - 0.09 [facility] 10*3/uL [facility] Specimen Blood - ARM, RIGHT Performing Organization Address City/State/Zipcode Phone Number [facility] CLIA: [id number], [address] [place] [phone] [facility] [address] Prothrombin Time / INR (04/25/2020 12:21 PM CDT) PROTIME PATIENT 12.7 12.0 - 14.7 [facility] Seconds [facility] INR 1.0Comment: Normal [facility] INR <1.1; [facility] Therapeutic range [facility] 2.0 to 3.0 or 2.5 to 3.5, depending upon the indications. Specimen Blood - ARM, RIGHT Performing Organization Address City/[facility] Centercode Phone Number [facility] CLIA: [id number], [address] [place] [address] [phone] [facility] aPTT (04/25/2020 12:21 PM CDT) Pathologist Sig nature APTT Patient 27 23 - 38 Seconds [facility] Specimen Blood - ARM, RIGHT Narrative Performed At The [facility] patient population mean normal [facility] LABORATOR Y [facility] value for aPTT is 30 seconds. CAMPUS Performing Organization Address City/State/Zipcode Phone Number [facility] CLIA: [id number], [address] [place] [address] [phone] [facility] Complete Metabolic Panel (04/25/2020 12:21 PM CDT) NA 138 135 - 145 [facility] mmol/L [facility] K 3.8 3.5 - 5.0 [facility] mmol/L [facility] CL 98 98 - 108 mmol/L [facility] CO2 TOTAL 31 23 - 31 mmol/L [facility] AGAP 9 2 - 16 [facility] BUN 33 (H) 7 - 23 mg/dL [facility] GLUCOSE 132 (H) 70 - 110 mg/dL [facility] CREATININE 3.23 (H) 0.60 - 1.25 [facility] mg/dL [facility] TOTAL BILI 0.5 0.1 - 1.1 mg/dL [facility] CALCIUM 8.7 8.6 - 10.6 [facility] mg/dL [facility] T PROTEIN 7.4 6.3 - 8.2 g/dL [facility] ALBUMIN 4.1 3.5 - 5.0 g/dL [facility] ALK PHOS 110 34 - 122 U/L [facility] ALTv 78 (H) 5 - 50 U/L [facility] AST(SGOT) 58 (H) 13 - 40 U/L [facility] eGFR Calculation 19.5 mL/min/1.73m2 [facility] (Non-Community [facility]) [place] eGFR Calculation 23.6 mL/min/1.73m2 [facility] () [facility] Specimen Blood - ARM, RIGHT Narrative Performed At Association of Glomerular Filtration Rate [facility] (GFR) and Staging of Kidney Disease* CAMPUS + + --+ + | GFR (mL/min/1.73 m2) | With Kidney Damage | Without Kidney Damage + + --+ + | >90 | Stage one | Normal + + --+ + | 60-89 | Stage two | Decreased GFR + + --+ + | 30-59 | Stage three | Stage three + + --+ + | 15-29 | Stage four | Stage four + + --+ + | <15 (or dialysis) | Stage five | Stage five + + --+ + *Each stage assumes the associated GFR level has been in effect for at least three months. Stages 1 to 5, with or without kidney disease, indicate chronic kidney disease. Notes: Determination of stages one and two (with eGFR >59mL/min/1.73 m2) requires estimation of kidney damage for at least three months as defined by structural or functional abnormalities of the kidney, manifested by either: Pathological abnormalities or Markers of kidney damage (including abnormalities in the composition of the blood or urine or abnormalities in imaging tests). Performing Organization Address City/[facility] Centercode Phone Number [facility] CLIA: [id number], [address] [place] [phone] [facility] Lipase, Serum (04/25/2020 12:21 PM CDT) Pathologist Sig nature LIPASE 160 0 - 220 U/L [facility] SERVICES-[facility] Specimen Blood - ARM, RIGHT Performing Organization Address [facility] Centercotn Phone Number [facility] CLIA: [id number], [address] [place] [phone] [facility] Amylase, Serum (04/25/2020 12:21 PM CDT) Pathologist Sig nature AROLDO 61 35 - 110 U/L [facility] SERVICES-[facility] Specimen Blood - ARM, RIGHT Performing Organization Address [facility] Centercode Phone Number [facility] CLIA: [id number], [address] [place] [address] [phone] [facility] Intact PTH Calcium Group (04/25/2020 12:21 PM CDT) CALCIUM 8.7 8.6 - 10.6 [facility] mg/dL SERVICES PTH-INTACT 122.6 (H) 12.0 - 88.0 [facility] pg/mL SERVICES PTH-CA Interpretation Comment: Further [facility] clinical data SERVICES needed for interpretation. Specimen Blood - ARM, RIGHT Performing Organization Address City/State/Zipcode Phone Number [facility] CLIA: [id number], [address] [place], [place] [phone] Lipid Panel (Total Cholesterol, Triglycerides, HDL) (04/25/2020 12:21 PM CDT) CHOL 214 (H) 120 - 200 [facility] mg/dL [facility] HDL 34 (L) >40 mg/dL [facility] SERVICES[facility] HDLC RATIO 6.3 (H) <=5.0 [facility] TRIG 409 (H) 30 - 170 mg/dL [facility] LDL CHOL Comment: Unable to [facility] calculate LDL due to [facility] elevated triglyceride [facility] level greater than 400 mg/dL. VLDL 82 (H) 5 - 60 mg/dL [facility] Specimen Blood - ARM, RIGHT Performing Organization Address City/[facility]/Zipcode Phone Number [facility] CLIA: [id number], [address] [place] [phone] [facility] Glycosylated Henoglobin (A1C) (04/25/2020 12:21 PM CDT) Pathologist Sig nature HGB A1C 8.5 (H) 4.0 - 6.0 % [facility] Specimen Blood - ARM, RIGHT Performing Organization Address City/State/Zipcode Phone Number [facility] CLIA: [id number], [address] [place] [address] [phone] [facility] Hepatitis B Surface Antigen (04/25/2020 12:21 PM CDT) Pathologist Sig nature HBsAg Negative Negative [facility] SERVICES-[facility] HBsAg 0.09 [facility] Semi-Quantitative SERVICES-[facility] Specimen Blood - ARM, RIGHT Performing Organization Address City/State/Zipcode Phone Number [facility] CLIA: [id number], [address] [place] [address] SERVICES-[facility] Hepatitis B Surface Antibody (04/25/2020 12:21 PM CDT) Pathologist Sig nature HBsAB Positive [facility] HBsAb 26.80 mIU/mL [facility] Semi-Quantitative SERVICES Specimen Blood - ARM, RIGHT Narrative Performed At Interpretation: Hepatitis B Surface An tibody [facility] Negative - Patient is considered to be not immu ne to infection with HBV. Positive - Anti-HBs detected at greater than or equal to 12 mIU/mL. Patient is considered to be immune to infection with HBV. Performing Organization Address City/[facility]/Zipcode Phone Number [facility] CLIA: [id number], [address] [place] [address] [facility] HBC Antibody (IGM & IGG) (04/25/2020 12:21 PM CDT) Pathologist Sig nature HBC Negative [facility] HBC Semi-Quantitative 3.34 [facility] Specimen Blood - ARM, RIGHT Performing Organization Address City/[facility] Centercode Phone Number [facility] CLIA: [id number], [address] [place] [address] [facility] HCV Antibody (04/25/2020 12:21 PM CDT) Pathologist Sig nature HCV Ab Negative [facility] HCV Semi-Quantitative 0.04 [facility] Specimen Blood - ARM, RIGHT Performing Organization Address [facility]/Zipcode Phone Number [facility] CLIA: [id number], [address] [place] [phone] [facility] HAV Antibody (IGG & IGM) (04/25/2020 12:21 PM CDT) Pathologist Sig nature HAV Total Positive [facility] HAVT Semi-Quantitative 0.03 [facility] Specimen Blood - ARM, RIGHT Narrative Performed At Indicates past or present infection with HAV or exposu re to [facility] HAV due to vaccination. Performing Organization Address City/State/Zipcode Phone Number [facility] CLIA: [id number], [address] [place] [phone] [facility] HIV 1/2 AG-AB WITH REFLEX (04/25/2020 12:21 PM CDT) Pathologist Sig nature HIV 1/2 Ag-Ab with Negative Negative [facility] Reflex SERVICES-[facility] HIV Semi-quantitative 0.11 [facility] Specimen Blood - ARM, RIGHT Narrative Performed At Non-reactive for HIV-1 antigen and [facility] SER [facility] HIV-1/HIV-2 antibodies. No laboratory CAMPUS evidence of HIV infection. Repeat in 2-4 weeks if acute HIV infection is suspected. Performing Organization Address [facility] Centercode Phone Number [facility] CLIA: [id number], [address] [place] [address] SERVICES-[facility] Cytomegalovirus (CMV) Antibody IGG (04/25/2020 12:21 PM CDT) Pathologist Sig nature CMV IGG Positive Negative [facility] SERVICES Specimen Blood - ARM, RIGHT Narrative Performed At Positive - Indicates current or past CMV infection. [facility] Negative - Indicates no serologic evidence of CMV infe ction. Cannot exclude acute CMV infection. Equivocal - A second specimen should be sent for repea t testing. Performing Organization Address City/[facility]/Zipcode Phone Number [facility] CLIA: [id number], [address] [place] [phone] [facility] Yun- Francois Virus (EBV) Antibody IGG (04/25/2020 12:21 PM CDT) Pathologist Sig nature Yun Francois Virus Positive Negative [facility] Viral Capsid IgG SERVICES Specimen Blood - ARM, RIGHT Narrative Performed At Positive - Indicates current or past infection with Ep felix [facility] Francois virus. Negative - Indicates no serologic evidence of EBV infe ction. Cannot exclude acute EBV infection. Equivocal - Indicates a second sample should be sent. Performing Organization Address City/State/Zipcode Phone Number [facility] CLIA: [id number], [address] [place] [address] 555 [facility] Toxoplasma IGG Antibody (04/25/2020 12:21 PM CDT) Pathologist Sig nature TOXO IGG Negative [facility] Specimen Blood - ARM, RIGHT Narrative Performed At Positive - Indicates current or past T. gondii infection. [facility] Negative - No serologic evidence of T. gondii infectio n. Cannot exclude acute T. gondii infection . Equivocal - A second sample should be sent. Performing Organization Address City/State/Zipcode Phone Number [facility] CLIA: [id number], [address] [place] [address] 555 [facility] HSV 1 AND 2 GLYCOPROTEIN G IGG (04/25/2020 12:21 PM CDT) Pathologist [facility] HSV I IgG Positive Negative [facility] HSV II IgG Negative Negative [facility] Specimen Blood - ARM, RIGHT Narrative Performed At Positive - IgG antibody to HSV 1 and/or HSV 2 detected. [facility] Negative - No HSV 1 and/or HSV 2 antibod y detected. Equivocal - A second sample should be sent. Performing Organization Address City/[facility] Phone Number [facility] CLIA: [id number], [address] [place] [address] 555 [facility] GALV ONLY - SYPHILIS IGG/IGM (04/25/2020 12:21 PM CDT) Pathologist Sig [facility] Syphilis IgG/IgM Non-reactive Non-reactive [facility] Specimen Blood - ARM, RIGHT Narrative Performed At [facility] Non-reactive - No serologic evidence of T. pallidum infection. Cannot exclude incubating or early syphilis . Submit a second specimen in 2-4 weeks if syphilis is clinically suspected. Equivocal - Further testing to follow. Reactive - Further testing to follow. Performing Organization Address City/State/Zipcode Phone Number [facility] CLIA: [id number], [address] [place] [address] 555 [facility] VZV Antibody Screen (04/25/2020 12:21 PM CDT) Pathologist Sig nature VZV IgG antibody Positive Negative [facility] Specimen Blood - ARM, RIGHT Narrative Performed At Positive - Indicates the patient was exposed to VZV th rough [facility] infection or vaccination. Negative - Indicates the patient could be susceptible to VZV infection. Equivocal - A second specimen should be sent for testi ng. Performing Organization Address City/State/Zipcode Phone Number [facility] CLIA: [id number], [address] [place], [place] [address] 555 [facility] Thyroid Stimulating Hormone (TSH) (04/25/2020 12:21 PM CDT) Pathologist Sig nature TSH 1.99 0.45 - 4.70 mIU/L [facility] Specimen Blood - ARM, RIGHT Performing Organization Address [facility] Centercode Phone Number [facility] CLIA: [id number], [address] [place] [address] [facility] Urinalysis (UA) (04/25/2020 12:21 PM CDT) Pathologist Sig nature APPEARANCE Clear Clear [facility] COLOR Yellow Yellow [facility] PH 7.0 4.8 - 8.0 [facility] SP GRAVITY 1.012 1.003 - 1.030 [facility] GLU U QUAL 50 mg/dL (A) Normal [facility] BLOOD Negative Negative [facility] KETONES Negative Negative [facility] PROTEIN 500 mg/dL (A) Negative [facility] UROBILIN Normal Normal [facility] BILIRUBIN [facility] Negative [facility] NITRITE Negative Negative [facility] LEUK TREVOR Negative Negative [facility] RBC/HPF <1 0 - 3 HPF [facility] WBC/HPF <1 0 - 5 HPF [facility] BACTERIA Negative Negative [facility] SQ EPITH <1 <=2 HPF [facility] Specimen Urine - URINE, CLEAN CATCH Performing Organization Address City/[facility]/Zipcode Phone Number [facility] CLIA: [id number], [address] [place] [address] [phone] SERVICES-[facility] Prostatic Specific Antigen (PSA) (04/25/2020 12:21 PM CDT) Pathologist Sig nature PSA 0.44 <=4.00 ng/mL [facility] Specimen Blood - ARM, RIGHT Narrative Performed At Biotin has been reported to cause a [facility] negative bias, interpret results relative to patient's use of biotin. Performing Organization Address City/State/Zipcode Phone Number [facility] CLIA: [id number], [address] [place] [id number] [facility] ABO RH (04/25/2020 12:21 PM CDT) Pathologist Sig nature ABO & RH O POSITIVE LAB Comment: Performed at [facility] Services - [facility] Blood [place] [address] Toll Free: [phone] CLIA No. [id number] Specimen Blood - VENOUS Performing Organization Address City/State/Zipcode Phone Number [facility] ABO RH (04/25/2020 12:16 PM CDT) Pathologist Sig nature ABO & RH O POSITIVE LAB Comment: Performed at [facility] - [facility] Blood [place] [address] Toll Free: [phone] CLIA No. [id number] Specimen Blood - V[place]OUS Performing Organization Address City/State/Zipcode Phone Number [facility] documented in this encounter Visit Diagnoses Diagnosis End stage renal disease Pre-transplant evaluation for kidney tra nsplant Other specified pre-operative examinatio n documented in this encounter Insurance Payer Benefit Plan Subscriber ID Effective Phone Address Typ e / Group Dates AETNA - AETNA [id number] 2019-Prese P [address] BOX Me dicare Adv MANAGED MEDICARE ADV nt [id number] [place] [address] documented as of this encounter"
--- OUTSIDE RECORDS SUMMARY | 2020-05-18 08:34 | XMS REPORT | Summary of Care ---
:1955 Author Organization [facility] - [facility] Address [address] [place] [id number] Care Team Providers Name Role Phone Pcp, Does Not Have A Primary Care Provider Reason for Visit Reason Comments Social Work Encounter Details Date Type Department Care Team Description 04/25/2020 Case Management [facility] Transplant- Damaso Chi MD [address] [place], [place] [id number] Social Work [place] Worker, Transplant [facility] [address] [facility], [facility] [place] [phone] Allergies Active Allergy Reactions Severity Noted Date [...] on filedocumented in this encounter Progress Notes Xavier Billy LMSW - 04/25/2020 10:30 AM CDT PSYCHOSOCIAL ASSESSMENT OF THE KIDNEY TRANSPLANT CANDIDATE PATIENT INFORMATION Date: 04/25/2020 Name: Larry Damico Address: [address] [place] [address] Phone/Cell: Work Phone Not on file. Alternate contact: Extended Emergency Contact Information Primary Emergency Contact: NAILA DAMICO [facility] Mobile Relation: Spouse Gender: Male Race: Primary Language: Sudanese Language Assistance: No Pentecostalism/Cultural Preferences: Assessment Status: Recipient, Initial Evaluation Service: kidney Informant: patient Do you have any jehovah's witness, ethnic or personal objections to accepting blood products during surgery and/or transplant? No Citizenship Where were you born? [place] Citizenship: Citizen FAMILY BACKGROUND & SUPPORTIVE RELATIONSHIPS Parental information : Both are Sibling information : 2 sisters and 1 half brother Children : 1 son and 2 daughters Marital Status: Household Composition: 2 (Pt and ) Animals in house: Yes. Specify: 1 small dog Caregiver (Caregivers must provide transportation, Medication supervision, housekeeping, errands, food preparation, communication with transplant team) Primary: Naila Damico () Secondary: Pt has adult children who will also help FUNCTIONING ABILITY/PERSONAL custodial Health: No DME: Cane as needed ADL's: Independent Mobility: No Difficulty Hearing: good; no issues reported Vision: Issues with both eyes Transportation: I'm completely independent and drive myself Sleep: Some difficulty with sleeping Hygiene: Carries out hygiene routine on a regular basis (i.e. Clean and well groomed) Exercise: Does not exercise Cognitive Functioning/Health Literacy How do you best learn new information? Reading, Verbal and Medical Explanation Can the patient read, write, and understand Sudanese? Yes Do you have any current or past problems with a medical issue (i.e. CVA, TBI, Encephalopathy, etc.) that has impacted your cognitive function? No What is the family perception of patient's cognitive functioning/dysfunction? NA Have you noticed any problems with or changes in your attention span/concentration level for conversations, TV/reading, etc.? no Episodes of disorientation/getting lost driving or at a store? no Have you left the stove on or a candle burning, forgotten to lock the front door, or prepared food improperly or in an unsafe manner? no Do you have difficulty managing your medical regimen? no Screening with [facility], if appropriate. MENTAL HEALTH Mental Status: alert and orientated Orientation: person, place, date/time and situation Cognitive Function: Attentive: Yes Memory problems: No Thought processes: normal Organized? Yes Do you have past or present mental health diagnosis: none Any history of physical, emotional, or sexual abuse including domestic violence? no Have you ever attempted suicide or thought about harming yourself or others? no Have you ever been hospitalized in a psychiatric hospital? No Have you used medications for Mental Health issues, sleep, and or pain now and in the past? NO SUBSTANCE USE AND HISTORY Do you now or have you in the past used substances such as street drugs like cannabis, opiates, cocaine or crack methamphetamines, inhalants, or tobacco or any nicotine products, alcohol, prescriptiondrugs such as sedatives and anxiolytic agents? Yes Alcohol: Pt used to drink in the past. No longer drinks. Tobacco or Nicotine Products: 52 years chewing tobacco. Pt will not stop. Pt uses half a can a day. COPING What are the previous stressors/concerns in your life? None What helps you cope when you are feeling stressed or worried? Fish, spend time outdoors, fix old cars, spend time in his shop. Advance Directive and Medical Power of Manager Supply Pt does not have AD/POA EDUCATION/EMPLOYMENT/FINANCIAL SITUATION Education: Some College Employment: Retired and Disabled Current/Previous Work Experience: [employer] Date of last employment? Financial Status Income source: Pension and Disability Monthly household income: $7000 Do you have any current financial concerns? No Is current income adequate to meet your monthly needs and current medications? Yes Insurance/Resources Insurance: Medicare Advantage Plan (Aetna) Patient is enrolled in Kidney Health Care? No [facility] ID: N/A Does someone currently pay your insurance premium(s)? No Who will pay your insurance premium after transplant? self Is your insurance through a high-risk pool, individual policy, or Cobra? No Medication Resources: Commercial: Aetna Medicare Part D Plan: NA Low Income Subsidy for Medicare Part D: NA Approximate Out of Pocket Medication Costs: $1500 How will you pay for medications after transplant? self Does the patient understand that Medicare is terminated 36 months post- transplant? N/A VA Benefit Service: No UNDERSTANDING OF MEDICAL SITUATION What is your primary diagnosis? DM and HTN Dialysis Status Initiation Date: Modality: [facility] Hemodialysis Center: [facility] Hemo TTS/Date of first dialysis [address] [facility] [address] (office) [phone] (fax) Dressing Room Porter: Breonna Nieves LMSW Treatment Adherence: Good Adjustment to Illness: No major issues Treatment Compliance/Adherence How do you manage your medications now? Memory Do you have any difficulties in getting or taking your medications? No Have you ever changed the way you take a medication without talking to the doctor? No Knowledge and Understanding of Transplant Process Tell me a little about what you understand about transplant. Pt was explained transplant process as well as potential complications. What is your biggest concern? How long the kidney will last. Were the psychosocial risks of transplant reviewed? yes What is your post-transplant housing plan? Pt lives locally How do you expect to pay for your plan? not applicable What is your post-transplant transportation plan? Family Willingness/Desire for Transplant Do you want to proceed with a transplant? yes If previously denied listing/implantation, why were you denied? (Please describe that experience andhow it is different now).not applicable If previously transplanted/VAD implanted, what was that experience like and what is different now? not applicable LEGAL ISSUES Have you been arrested or had a warrant for your arrest or have any current legal issues including probation, parole, pending court hearings? 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 Financial/insurance: Identified strengths/risks: No issues with finances. Pt hasacceptableins. Compliance: Identified strengths/risks: Pt. Reports being compliant with hisdialysis regimen. Cognitive & Functional Status: Identified strengths/risks: No cognitive deficiencies noted.Heis able to conduct all ADL's. Mental Health: Identified strengths/risks: No risks Coping Skills: Identified strengths/risks: Pt has adequate coping skills. Substance Abuse: Identified strengths/risks: No risks Legal Issues: Identified strengths/risks: None Understanding and Motivation: Identified strengths/risks: Pt has good understanding of transplant process and is motivated for transplant. Barriers to Transplant/VAD: None RECOMMENDATION & ASSESSMENT spinning room worker spoke with pt over the phone and completed initial psychosocial assessment for kidney transplant.Pt is a65 year oldCaucasian male. He liveslocally withhis . Pt reports having good support from family. Patient was explained transplant process as well as risks and benefits. SW discussed patient's responsibilities post-transplant which include medication compliance, visits tofollow clinics and financial responsibilities.Pt has adequate resources including insurance and income.Pt was explained AD and POA forms. SW also reviewed medication coverage through pts ins. Pt was attentive and cooperative during the interview and did not exhibit any abnormal behaviors. Based on this evaluation, pt is a good candidate for transplant. Xavier Billy, STRAIGHTENER, AUTO DAMAGE ESTIMATOR, CCTSW Kidney and PancreasTransplant spinning room worker Transplant Services Ph. [phone] Fax. [phone] ASSESSMENT COMPLETED BY TELEHEALTH APPOINTMENT Verbal consent obtained from Patient: Larry Damico for telehealth services provided below. Communication with patient was conducted via Telephone due to patient unable to obtain video call option. Location of Patient: clinic Location of Provider: home Date of Service: 04/25/20 documented in this encounter Plan of Treatment Health Maintenance Due Date [...] e / Group Dates AETNA - AETNA [id number] 2019-Porsha Dean BOX Me dicare Adv MANAGED MEDICARE ADV nt [id number] [place] [address] documented as of this encounter
--- OUTSIDE RECORDS SUMMARY | 2020-05-18 08:34 | XMS REPORT | Summary of Care ---
:1955 Author Organization [facility] - [facility] Address [address] [place] [address] Care Team Providers Name Role Phone Pcp, Does Not Have A Primary Care Provider Reason for Visit Reason Comments Evaluation Encounter Details Date Type Department Care Team Description 04/25/2020 Supervisor Cigar Processing Visit [facility] Transplant- Damaso Chi MD [address] [place], [place] [address] [place] Supervisor Cigar Processing, Transplant [facility] [address] [facility], [place] [phone] Allergies Active Allergy Reactions Severity Noted Date Comments Cefuroxime Axetil Hives 12/26/2015 Codeine Unknown - See comments 12/26/2015 Sever e Headache Hydrocodone Other - See comments, 12/26/2015 headac hes Hives Latex Rash Low 04/25/2019 Naproxen Sodium Palpitations Low 12/26/2015 Sulfa (Sulfonamide Hives 04/25/2019 Antibiotics) Tramadol Swelling 12/26/2015 documented as of this encounter (statuses as of 04/26/2020) Medications Medication Sig Dispensed Refills Start Date [...] as of this encounter (statuses as of 04/26/2020) Active Problems Problem Noted Date Right knee pain 12/26/2015 documented as of this encounter (statuses as of 04/26/2020) Social History Tobacco Use Types Packs/Day Years [...] on filedocumented in this encounter Progress Notes Sandra Gallegos - 04/25/2020 9:00 AM CDT KIDNEY TRANSPLANT NUTRITION EVALUATION NOTE INITIAL April 25, 2020 Larry Damico, [id number] Larry Damico is a 65 year old male being evaluated for possible kidney transplant. He has end stage renal disease secondary to diabetes type 2 and HTN. I have reviewed pertinent medical, surgical and social history to gain a better understanding of this patient's condition. Informant: patient and spouse Anthropometrics Measured Clinic Height: Ht Readings from Last 1 Encounters: 04/25/20 6' 1" (1.854 m) Weight History: Wt Readings from Last 5 Encounters: 04/25/20 326 lb 3.2 oz (148 kg) 12/09/19 312 lb (141.5 kg) 12/02/19 312 lb (141.5 kg) 11/25/19 312 lb (141.5 kg) 10/27/19 312 lb (141.5 kg) Dry weight: 148 kg stated by patient IDWG (#/kg): 2 kg Current BMI: 43.04 kg/m2 calculated using today's clinic weight: Obesity III (BMI >/= 40 ) (patient has a muscular build, but he does carry majority of weight in his abdomen) Weight Changes: Planned: Loss, amount 30 lbs this year Edema/Fluid status: no edema Amputation: none Waist Cir (inches): 55 Inches Hip Cir (inches): 51 Inches Waist/Hip Ratio: 1.08 Clinical data Labs: I have reviewed the patient's labs. Significant abnormals are noted below. Results for LARRY DAMICO ( ) as of 04/26/2020 10:12 04/25/2020 12:21 NA 138 K 3.8 CL 98 CO2 TOTAL 31 AGAP 9 BUN 33 (H) GLUCOSE 132 (H) CREATININE 3.23 (H) eGFR CALCULATION (non ) 19.5 eGFR CALCULATION () 23.6 TOTAL BILI 0.5 CHOL 214 (H) TRIG 409 (H) HDL CHOL 34 (L) HDLC RATIO 6.3 (H) LDL CHOL COMMENT ONLY dLDL Chol 82 VLDL 82 (H) CALCIUM 8.7 T PROTEIN 7.4 ALBUMIN 4.1 LIPASE 160 HGB A1C 8.5 (H) Medical History Past Medical History: Diagnosis Date Allergic rhinitis Chronic kidney disease Diabetes mellitus Heart attack 09/2018 Hyperlipidemia Hypertension Right knee pain 12/26/2015 Past Surgical History: Procedure Laterality Date ARTERIOVENOUS FISTULA CREATION CHOLECYSTECTOMY HERNIA REPAIR SPINE SURGERY Current/Previous Therapies Hemodialysis since January 2019 Medications MNT therapies/supplements: none Vitamins/Herbal supplements/OTC Dietary supplements: renal MVI, CBD cream for back pain Diet History Route of nutrition: Oral Appetite: good Food allergies/intolerances: milk (other dairy products are fine) Pica: no GI complaints: denies Daily Meal Routine at Home: Eats 3 meals with snacks. 1/4 c oatmeal made with water, honey, granola,and cinnamon in the morning and coffee or unsweet tea. Sausage kolache for lunch. Dinner is usually hamburger with hawaiin roll and chips, or chicken leg quarter with vegetables, or chicken and vegetables stir velasco. Tries to eat 1 big meal/day. Other Factors Affecting Nutrition Status Chewing/Swallowing Limitations: none at this time Dentition: good Weight Loss Program: no Obesity Surgery History: no Diabetes Self Management Patient checks blood sugar once a week. Last Hgb A1c was 9 per patient report. Insulin regimen is 80u of Tresiba once daily and 35 u of Novolin with meals TID. Patient is followed by Inspector Purchased Parts. Functional Ability/Psycho-Social/Economic Factors Affecting Nutrition Vision: good; no issues reported Hearing: good; no issues reported ADLs: Independent Activity Level/Mobility: no difficulty Exercise: gardening and yard work, patient [place] on 4 acres Social Support System: Living Situation: with spouse Adequate Cooking Facilities: yes Primary cooking and shopping performed by: spouse Food Assistance Program: no Cultural/Christian Preferences: no Employed: retired Nutrition Diagnosis Obese, Class III, Adult related to history of excess intake and sedentary lifestyle as evidenced by patient report and BMI >40 kg/m2. Nutrition Intervention and Recommendations 1) Suggest the patient follow a consistent carbohydrate and renal diet 2) Educated the patient on the importance of obtaining a healthy weight prior to transplant and advised him to lose 25-30 lbs 3) Educated the patient at length on specific dietary changes he can make to help with weight loss 4) Handouts given and reviewed: "Renal Weight Loss Shopping List and Meal Plan" 5) Physical activity such as walking, was encouraged; as approved by MD Target Weight BMI < 38 kg/m2: 285 lbs (129.5 kg) BMI < 35 kg/m2: 265 lbs (120.4 kg) Nutrition Monitoring and Evaluation Transplant candidate based on current nutritional status and anthropometrics:Refer to surgeon for BMI >40 and abdominal adiposity Total time spent with patient: 60 minutes Sandra Gallegos MS, RDN, LD Registered Dietitian Sales Representative Supervisor [place] [facility] [place] Ext: [phone] documented in this encounter Plan of Treatment [...] e / Group Dates AETNA - AETNA [id number] 2019-Prese P O BOX Me dicare Adv MANAGED MEDICARE ADV nt [id number] [place] [address] (Home) [place] [address] documented as of this encounter
--- OUTSIDE RECORDS SUMMARY | 2020-05-18 08:34 | XMS REPORT | Summary of Care ---
:1955 Author Organization [facility] - Health Address [address] [place] [address] Care Team Providers Name Role Phone Pcp, Does Not Have A Primary Care Provider Encounter Details Date Type Department Care Team Description 04/25/2020 Orders Only [facility] Doctor Unassigned, No [address] [facility] [place] [address] [address] [place] [address] Allergies Active Allergy Reactions Severity Noted Date Comments Cefuroxime Axetil Hives 12/26/2015 Codeine Unknown - See comments 12/26/2015 Sever e Headache Hydrocodone Other - See comments, 12/26/2015 headac hes Hives Latex Rash Low 04/25/2019 Naproxen Sodium Palpitations Low 12/26/2015 Sulfa (Sulfonamide Hives 04/25/2019 Antibiotics) Tramadol Swelling 12/26/2015 documented as of this encounter (statuses as of 04/30/2020) Medications Medication Sig Dispensed Refills Start Date [...] as of this encounter (statuses as of 04/30/2020) Active Problems Problem Noted Date Right knee pain 12/26/2015 documented as of this encounter (statuses as of 04/30/2020) Social History Tobacco Use Types Packs/Day Years Used Date Never Smoker Smokeless Tobacco: Current User Snuff Alcohol Use Drinks/Week oz/Week Comments No 0 Standard drinks or equivalent 0.0 Sex Assigned at Date Recorded Not on file COVID-19 Exposure Response Date Recorded In the last month, have you been in contact with No / Unsure 04/20/2020 1:25 PM CDT someone who was confirmed or suspected to have Coronavirus / COVID-19? documented as of this encounter Last Filed Vital Signs Not on filedocumented in this encounter Plan of Treatment Health Maintenance Due Date Last Done Comments DTaP,Tdap,and Td Vaccines ( - 01/18/1976 Tdap) COLON CANCER SCREENING ANNUAL 2007 FIT/FOBT COLON CANCER SCREENING FIT DNA 2007 EVERY 3 YEARS COLON CANCER SCREENING 2007 SIGMOIDOSCOPY EVERY 5 YEARS COLONOSCOPY 2007 Colorectal Cancer Screening 2007 Zoster Recombinant Vaccine 2007 (SHINGRIX) (1 of 2) INFLUENZA VACCINE (#1) 2020 Depression Screening 12/08/2020 12/09/2019 HEPATITIS C (HCV) SCREEN Completed 04/25/2020 PNEUMOCOCCAL 0-64 YEARS COMBINED Aged Out No longer eligible based on SERIES patient's age to complete this topic documented as of this encounter Procedures Procedure Name Priority Date/Time Associated Diagnosis Comme nts AUTHORIZATION TO RELEASE Routine 04/25/2020 12:01 AM PHI TO [facility] CDT documented in this encounter Results Not on filedocumented in this encounter Insurance Payer Benefit Plan Subscriber ID Effective Phone Address Typ e / Group Dates AETNA - AETNA [id number] 2019-P[place]ha [address] Me dicare Adv MANAGED MEDICARE [place]V nt [id number] [place] [address] documented as of this encounter
--- OUTSIDE RECORDS SUMMARY | 2020-05-18 08:35 | XMS REPORT | Summary of Care ---
:1955 Author Organization [facility] Address [address] [place] [address] Care Team Providers Name Role Phone Pcp, Does Not Have A Primary Care Provider Reason for Referral MRI/CAT Scan (Routine) Status Reason Specialty Diagnoses / Referred By Referred To Procedures Contact Contact New Request Diagnostic Diagnoses Pre-transplant evaluation for kidney transplant Cristian Regan Radiology Procedures CT ABDOMEN PELVIS W WO CONTRAST MD Javon [address] [place] [address]. [place] [address] Reason for Visit Reason Comments New Evaluation kidney Pre-Transplant OBESITY Encounter Details Date Type Department Care Team Description 04/25/2020 Office Visit [facility] Naila Chi MD [address] [place] [address] Pre-transplant Transplant-[place] Cristian Regan MD [address] [place] [address]. [place] [address] evaluation for [facility] kidney transplant [address] [facility] (Primary D x) [facility], [facility] [place] [address] Allergies Active Allergy Reactions Severity Noted Date Comments Cefuroxime Axetil Hives 12/26/2015 Codeine Unknown - See comments 12/26/2015 Sever e Headache Hydrocodone Other - See comments, 12/26/2015 headac hes Hives Latex Rash Low 04/25/2019 Naproxen Sodium Palpitations Low 12/26/2015 Sulfa (Sulfonamide Hives 04/25/2019 Antibiotics) Tramadol Swelling 12/26/2015 documented as of this encounter (statuses as of 05/10/2020) Medications Medication Sig Dispensed Refills Start Date [...] as of this encounter (statuses as of 05/10/2020) Active Problems Problem Noted Date Right knee pain 12/26/2015 documented as of this encounter (statuses as of 05/10/2020) Social History Tobacco Use Types Packs/Day Years [...] of this encounter Last Filed Vital Signs Vital Sign Reading Time Taken Comments Blood Pressure 167/95 04/25/2020 8:20 AM CDT Pulse 94 04/25/2020 8:20 AM CDT Temperature 36.6 C (97.8 F) 04/25/2020 8:19 AM CDT Respiratory Rate - - Oxygen Saturation 100% 04/25/2020 8:20 AM CDT Inhaled Oxygen Concentration - - Weight 148 kg (326 lb 3.2 oz) 04/25/2020 8:19 AM CDT n o shoes Height 185.4 cm (6' 1") 04/25/2020 8:19 AM CDT no shoe s Body Mass Index 43.04 04/25/2020 8:19 AM CDT documented in this encounter Progress Notes Robert Colin, RN - 04/25/2020 8:00 AM CDTHermisha Seth is a 65 year old male, with a h/o 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 Ramirez. Patient is accompanied by Pre-transplant education was done today using preferred verbal method, supplemented with transplant literatures and other written materials, including a copy of the latest available 2019 SRTR data. The following is a summary of the topics discussed: ? The pre-transplant evaluation process: o Test and procedures required o Presentation to the Multidisciplinary Selection Committee o Listing ? The indications and selection criteria for Kidney and/or Pancreas transplant ? The benefits and potential risks/complications of kidney and/or pancreas transplantation ? Kidney Allocation, Types of Donors and donor related risk factors ? Living donation ? Multi-listing including wait time transfer. ? How to stay healthy while on the list and waiting for the transplant. ? The organ offer: Procedure and Expectations ? How to obtain more transplant related information on-line at www.unos.org or at www.srtr.org and other sites. Patient was given opportunities to ask questions. Patient showed interest to learn. Patient demonstrated adequate knowledge and comprehension about the evaluation and transplant processes. Consent for the transplant evaluation was obtained. A consent to receive or not receive a donor withKidney Donor Profile Index (KDPI) >85% was also obtained. Leodan was seen in transplant clinic today by the Transplant Team for initial pre-transplant evaluation. Medical history, allergies, medications and ROS were updated and reviewed. Patient has 1 potential living donors. Patient is eager to proceed with the evaluation and to get on the list. Patient appears to be an acceptable candidate pending completion of all the required tests and weight loss. BMI is 43. Review of Systems General:within normal limits Skin: history of skin cancer, needs clearance by dermatology Eyes: glasses Ears/Nose/Throat: within normal limits and sore throat Cardiovascular: had echo, stress test and carotid dopplers in February 2019 at in [place] Had cardiac cath in 2019 and [place], has one stent, had cath done at [facility] Respiratory: within normal limits Upper Gastrointestinal: within normal limits Lower Gastrointestinal: colonoscopy needs updated, last done 12 years ago and had polyps at that time Genitourinary: within normal limits reports no prostate problems Musculoskeletal: within normal limits Extremities: within normal limits Neuro: within normal limits Dental:chews tobacco and needs oral cancer clearance from dentist and needs to see dentist as overdue Blood transfusions: Karnofsky Performance Status 90% Able to carry on normal activity; minor signs and symptoms of disease Cristian Graff MD - 04/25/2020 8:00 AM CDT Kidney Transplant Evaluation Note Name: Larry Seth Age: [age] year old Date of Service: 04/25/2020 08:27 Reason for Consult: Kidney Transplant Evaluation Chief Complaint: I want to be considered for a kidney transplant Medical History includes: ESKD due to DM and then KAILEY last yr ( [facility]) started HD in 01/2019 . Hx of Diffuse idiopathic skeletal hyperostosis (DISH), / ankylosing hyperostosis Currently dialyzes via [facility] Dialysis procedure is HD Blood pressure control is ok, and is being managed at the dialysis unit Metabolic bone disease - ok, and is being managed at the dialysis unit Anemia of CKD - being managed at the dialysis unit Diabetes control Hgb A1c 9 UOP normal Smoking no , illicit drugs no, psych issues no Listed no Body mass index is 43.04 kg/m. Patient Has a belly but over all muscular man Hx of renal cyst in left kidney CAD , stent placed 09/2018 Hx of fatty liver Active cardiac symptoms: No [ Active conditions include unstable coronary syndromes (eg, unstable angina, severe angina, or recent [place]), decompensated heart failure, significant arrhythmias, and severe valvular disease.] Past Medical History: Diagnosis Date Allergic rhinitis Chronic kidney disease Diabetes mellitus Heart attack 09/2018 Hyperlipidemia Hypertension Right knee pain 12/26/2015 No past surgical history on file. Social History Socioeconomic History Marital status: Spouse name: Not on file Number of children: Not on file Years of education: Not on file Highest education level: Not on file Occupational History Not on file Social Needs Financial resource strain: Not on file Food insecurity: Worry: Not on file Inability: Not on file Transportation needs: Medical: Not on file Non-medical: Not on file Tobacco Use Smoking status: Never Smoker Smokeless tobacco: Current User Types: Snuff Substance and Sexual Activity Alcohol use: No Alcohol/week: 0.0 standard drinks Drug use: No Sexual activity: Never Lifestyle Physical activity: Days per week: Not on file Minutes per session: Not on file Stress: Not on file Relationships Social connections: Talks on phone: Not on file Gets together: Not on file Attends confucianist service: Not on file Active member of club or organization: Not on file Attends meetings of clubs or organizations: Not on file Relationship status: Not on file Intimate partner violence: Fear of current or ex partner: Not on file Emotionally abused: Not on file Physically abused: Not on file Forced sexual activity: Not on file Other Topics Concern Not on file Social History Narrative Not on file Family History Problem Relation Age of Onset Other - see comments Father alzheimer Current Outpatient Medications Medication Sig Dispense Refill ALBUTEROL INHALE Inhale 2 Puffs 4 (four) times daily as needed. aspirin 81 mg chewable tablet Take 81 mg by mouth daily. Chlorpheniramine-Acetaminophen (CORICIDIN HBP COLD AND FLU) 2-325 mg Tab Take 1 tablet by mouth at bedtime. clopidogreL 75 mg tablet Take 75 mg by mouth daily. fluticasone furoate (ARNUITY ELLIPTA) 200 mcg/actuation DsDv Inhale 1 Puff daily. folic acid/vit B complex and C (DIALYVITE 800 ORAL) Take 1 tablet by mouth daily. furosemide 80 mg tablet Take 80 mg by mouth. Takes on non dialysis days, S,M,W and F gabapentin 300 mg capsule Take 300 mg by mouth 3 (three) times daily. insulin degludec (TRESIBA FLEXTOUCH U-100) 100 unit/mL (3 mL) InPn inject 80 Units under the skin daily before a meal. Insulin Regular Human (NOVOLIN R FLEXPEN) 100 unit/mL (3 mL) InPn inject 35 Units under the skin3 (three) times daily before meals. losartan 25 mg tablet Take 25 mg by mouth daily. amitriptyline (ELAVIL) 25 mg tablet Take 25 mg by mouth at bedtime. 99 amLODIPine (NORVASC) 5 mg tablet Take 5 mg by mouth daily. 3 BYSTOLIC 10 mg tablet 3 doxazosin (CARDURA) 1 mg tablet Take 1 mg by mouth daily. 3 DULoxetine (CYMBALTA) 60 mg capsule 3 GABAPENTIN ORAL Take by mouth. isosorbide mononitrate (IMDUR) 30 mg 24 hr tablet Take 30 mg by mouth daily. 3 TRULICITY 1.5 mg/0.5 mL PnIj 1 valsartan (DIOVAN) 320 mg tablet Take 320 mg by mouth daily. 3 No current facility-administered medications for this visit. Allergies Allergen Reactions Ceftin [Cefuroxime Axetil] Hives Codeine Unknown - See comments Severe Headache Hydrocodone Other - See comments and Hives headaches Sulfa (Sulfonamide Antibiotics) Hives Tramadol Swelling Latex Rash Naproxen Sodium Palpitations ROS: Reviewed by coordinator and accepted by me. Living Donors: None identified at this moment. PHYSICAL EXAM: General Exam BP (!) 167/95 (BP Location: Right arm, Patient Position: Standing, BP CUFF SIZE: Adult Large) | Pulse 94 | Temp 36.6 C (97.8 F) (Tympanic) | Ht 6' 1" (1.854 m) | Wt 326 lb 3.2 oz (148 kg) |SpO2 100% | BMI 43.04 kg/m In no apparent distress Eye Exam: Pupils react to light Conjunctival pallor: none ENT External appearance of the ears and nose is normal Oral mucosa is moist Teeth: Neck Exam: No JVD No Carotid bruits Cardiovascular: Heart sounds are heard No pericardial friction rub, murmurs Respiratory: Breathing pattern is normal Clear to auscultate Abdomen (GI): Bowel sounds are appreciated No organomegaly No evidence of hernia Big belly Extremities: No evidence of edema Dorsalis pedis pulses are 1+ Neurologic: No focal neurologic deficits Motor function is grossly normal Psychiatric: Alert and oriented to time, place and person No evidence of clinical depression. DATA: I have ordered (or reviewed) the following lab panels: CBC Metabolic Panel Viral titers of common infections (CMV, EBV and Varicella) Tests to evaluate uncommon infections (HIV, Hepatitis B, Hepatitis C and Syphilis) Panel Reactive Antibody Titer I have ordered (or reviewed) the following tests: Transthoracic Echocardiogram Cardiac Stress Test/Dobutamine Stress Echo Age appropriate cancer screening tests I have discussed this case with our transplant surgeons. I have reviewed relevant old records on this case. I had the opportunity to talk to Larry Seth about the following 1. Reasons to perform a kidney transplant including longevity of life and improved quality of life 2. Types of kidney donors including living and . 3. Types of donors including Standard Expanded Criteria Donation after Cardiac CDC high risk Donors with previous exposure to Hepatitis B (if vaccinated for HBV) 4. The average survival of and wait time to receive each type of kidney 5. The operative procedure and the inpatient hospitalization. 6. Short-term and long-term complications of kidney transplant surgery 7. Short-term and long-term follow up that is needed to maintain a healthy kidney transplant state 8. The complications of immunosuppression including infections and cancers 9. The fact that kidney transplant is performed only to treat end-stage kidney disease. Larry Seth asked questions indicating a good level of understanding. This case will be presented and discussed at the multidisciplinary meeting and a decision will be made regarding the status. I spent 60 minutes on this evaluation of which more than 30 minutes constituted face to face counseling on the above issues and the rest of the time was spent for coordination of care amongst referringphysicians, pre-transplant coordinators, social workers and dieticians. Additional Notes: 1. Transplant eligibility: after losing weight 2. Additional work up: need to lose weight We need to proceed with reviewing records of [facility] , [place] and will schedule colonoscopy and CT Ab/p , after he lose weight We will also review his liver function and imaging after weight loss 3. I have also described to the patient the necessity to adhere to an exercise protocol and continueto stay healthy (and lose weight if appropriate), so that they have a better cardiovascular risk profile at the time of transplantation. 4. I have also discussed that all patients undergo a thorough evaluation again as an inpatient at the time of transplantation. If there are any tests that are outstanding (especially cardiac work up and age appropriate cancer screening tests), there is a possibility that the transplant procedure couldbe cancelled. 5. It is also sometimes possible that patients who are not the intended recipients of a particular donor kidney could be called in as back-up, and if the transplant works out with the intended recipient, then the back-up person would be sent home without being transplanted. Please fax this note to the Consulting Physician. Michelle Arenas MA - 04/25/2020 8:00 AM CDTHerman Reji Seth came into clinic with no complaints and no distress noted. documented in this encounter Miscellaneous Notes Addendum Note - Robert Colin RN - 04/25/2020 8:00 AM CDT Addended by: ROBERT COLIN RN on: 05/10/2020 02:01 PM Modules accepted: Orders documented in this encounter Plan of Treatment Name Type Priority Associated Diagnoses Order S chedule CT ABDOMEN PELVIS W WO IMAGING Routine Pre-transplant Exp ected: 05/10/2020, CONTRAST evaluation for kidney s: 11/10/2021 transplant Health Maintenance Due Date Last Done Comments DTaP,Tdap,and Td Vaccines (1 - 01/18/1976 Tdap) COLON CANCER SCREENING ANNUAL [...] evaluation for kidney tra nsplant - Primary documented in this encounter Insurance Payer Benefit Plan Subscriber ID Effective Phone Address Typ e / Group Dates AETNA - AETNA [id number] 2019-Prese [address] BOX Me dicare Adv MANAGED MEDICARE ADV nt [id number] [place] [address] documented as of this encounter
--- OUTSIDE RECORDS SUMMARY | 2020-05-18 08:35 | XMS REPORT | Summary of Care ---
:1955 Author Organization [facility] Address [address] [place] [address] Care Team Providers Name Role Phone Pcp, Does Not Have A Primary Care Provider Reason for Visit Reason Comments New Evaluation kidney Pre-Transplant OBESITY Encounter Details Date Type Department Care Team Description 04/25/2020 Office Visit [facility] Naila Chi MD [address] [place] [address] Pre-transplant Transplant-[place] Cristian Regan MD [address] [facility] [place] [address] evaluation for [facility]tr kidney transplant 2660 [facility] (Primary D x) [facility], [facility] [place] [address] Allergies Active Allergy Reactions Severity Noted Date Comments Cefuroxime Axetil Hives 12/26/2015 Codeine Unknown - See comments 12/26/2015 Sever e Headache Hydrocodone Other - See comments, 12/26/2015 headac hes Hives Latex Rash Low 04/25/2019 Naproxen Sodium Palpitations Low 12/26/2015 Sulfa (Sulfonamide Hives 04/25/2019 Antibiotics) Tramadol Swelling 12/26/2015 documented as of this encounter (statuses as of 05/03/2020) Medications Medication Sig Dispensed Refills Start Date [...] as of this encounter (statuses as of 05/03/2020) Active Problems Problem Noted Date Right knee pain 12/26/2015 documented as of this encounter (statuses as of 05/03/2020) Social History Tobacco Use Types Packs/Day Years [...] CDT documented in this encounter Progress Notes Leah Colin RN - 04/25/2020 8:00 AM CDTHermisha Seth is a 65 year old male, with a h/o ESKD 2/2 DM2 and HTN, alert/oriented x 3, ambulatory, accompanied by , on hemodialysis since 01/2019 on [facility] schedule @ [facility] under the care of Dr. Ramirez. Patient [...] carotid dopplers in February 2019 at in [place] Had cardiac cath in 2018 and [place], has one stent, had cath done at [facility] Respiratory: within normal limits Upper Gastrointestinal: within [...] DM and then KAILEY last yr ( [facility]) started HD in 01/2019 . Hx of [...] (eg, unstable angina, severe angina, or recent [place]), decompensated heart failure, significant arrhythmias, and severe [...] file Gets together: Not on file Attends lutheran service: Not on file Active member of [...] need to proceed with reviewing records of [facility] , echo and will schedule colonoscopy and CT Ab/p [...] Michelle Arenas MA - 04/25/2020 8:00 AM CDTHermisha Seth came into clinic with no complaints and no distress noted. documented in this encounter Plan of Treatment [...] e / Group Dates AETNA - AETNA [id number] 2019-Prese P O BOX Me dicare Adv MANAGED MEDICARE ADV nt [id number] [place] [address] (Home) [place] [address] documented as of this encounter
--- OUTSIDE RECORDS SUMMARY | 2020-05-18 08:35 | XMS REPORT | Summary of Care ---
:[address] [facility] Address [address] [place] [address] Care Team Providers Name Role Phone Pcp, Does Not Have A Primary Care Provider Reason for Visit Reason Comments New Evaluation kidney Pre-Transplant OBESITY Encounter Details Date Type Department Care Team Description 04/25/2020 Office Visit [facility] Naila Chi MD [address] [place] [address] Pre-transplant Transplant-[place] Cristian Regan MD 301 [facility] [place] [address] evaluation for [facility] kidney transplant 2660 [facility] (Primary D x) [facility], [facility] [place] [address] Allergies Active Allergy Reactions Severity [...] by , on hemodialysis since 01/2019 on [facility] schedule @ [facility] under the care of Dr. Ramirez. Patient [...] carotid dopplers in February 2019 at in [place] Had cardiac cath in 2018 and [place], has one stent, had cath done at [facility] Respiratory: within normal limits Upper Gastrointestinal: within [...] DM and then KAILEY last yr ( [facility]) started HD in 01/2019 . Hx [...] (eg, unstable angina, severe angina, or recent [place]), decompensated heart failure, significant arrhythmias, and severe [...] file Gets together: Not on file Attends voodoo service: Not on file Active member of [...] need to proceed with reviewing records of [facility] , echo and will schedule colonoscopy and [...] e / Group Dates AETNA - AETNA [id number] 2019-Prese P O BOX Me dicare Adv MANAGED MEDICARE ADV nt [id number] [place] [address] (Home) [place] [address] documented as of this encounter
--- OUTSIDE RECORDS SUMMARY | 2020-05-18 08:36 | XMS REPORT | Summary of Care ---
:1955 Author Organization [facility] Address [address] [place] [address] Care Team Providers Name Role Phone Pcp, Does Not Have A Primary Care Provider Reason for Visit Reason Comments Imaging CT abd pelvis w/o Encounter Details Date Type Department Care Team Description 05/10/2020 Telephone [facility] Cristian Regan Javon, Imaging (CT abd Transplant-[facility] pelvis w/o) Multispecialty Ctr [address] [place] [address]. [address] [place] [address] En[address]ance B [phone] [place] [address] Allergies Active Allergy Reactions Severity [...] Signs Not on filedocumented in this encounter Miscellaneous Notes Telephone Encounter - Leah Colin RN - 05/10/2020 2:01 PM CDTDietitian Sandra Gallegos states patient nearing 20lb weight loss goal. I entered order for CT abdomenpelvis. stated patient can proceed with this once weight loss of 20lbs achieved. documented in this encounter Plan of Treatment [...] e / Group Dates AETNA - AETNA [id number] 2019-Prese P O BOX Me dicare Adv MANAGED MEDICARE ADV nt [id number] [place] [address] documented as of this encounter
--- OUTSIDE RECORDS SUMMARY | 2020-05-18 08:36 | XMS REPORT | Summary of Care ---
:1955 Author Organization [facility] Address [address] [place] [address] Care Team Providers Name Role Phone Pcp, Does Not Have A Primary Care Provider Reason for Visit Reason Comments Imaging CT abd pelvis w/o Encounter Details Date Type Department Care Team Description 05/10/[address] [facility] Cristian Regan Javon, Imaging (CT abd Transplant-[facility] pelvis w/o) [facility] [address] [place] [address]. [address] [place] [address] Entrance B [phone] [place] [address] Allergies Active Allergy Reactions Severity [...] Encounter - Leah Colin RN - 05/10/2020 2:04 PM CDTCalled patient and advised him to call and get scheduled for ct abdomen pelvis. Patients will go ahead and get his colonoscopy done. and patient expressed understanding. elephone Encounter - Leah Colin RN - 05/10/2020 2:01 PM CDTDietitian Sandra Gallegos states patient nearing 20lb weight loss goal. I entered order for CT abdomen pelvis. stated patient can proceed with this once [...] e / Group Dates AETNA - AETNA [id number] 2019-Prese P O BOX Me dicare Adv MANAGED MEDIC[place] [id number] [place] [address] documented as of this encounter
--- OUTSIDE RECORDS SUMMARY | 2020-05-18 08:36 | XMS REPORT | Summary of Care ---
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 Transplant- Sandra Gallegos COMPUTER HARDWARE ENGINEER [place] [facility] [address] [facility] [place] [address] 26[address] [facility], Entrance B [place] [phone] Allergies Active Allergy Reactions Severity Noted Date [...] this encounter Miscellaneous Notes Telephone Encounter - Sandra Gallegos - 05/10/2020 3:53 PM CDTMedical Nutrition Therapy-Brief Note Spoke with patient and his , they report patient has had great success with weight loss after evaluation with us and weight loss counseling. Patient stated he had lost 20 lbs however, after checking with his dialysis center he has lost 10 lbs. Current post-treatment weight is 144.8 kg. I had advised patient to follow a 2,000 calorie diet which he has done and has been weighing and measuring out his portion sizes. He has had issues with nausea during dialysis recently and patient stated his dialysis advanced registered nurse told him it was due him not consuming enough calories. I advised patientto add an additional snack to his meal routine and to continue measuring portion sizes. 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 Weight loss progress was discussed with Dr. Regan and he agreed to proceed with additional testingfor evaluation. Sandra Gallegos MS, RDN, LD Registered Dietitian Internet Sales Consultant [facility] Ext: [phone] documented in this encounter Plan of Treatment Date Type Specialty Care Team Description 05/16/2020 Appointment Radiology Cristian Regan As MD avelino [address] [place] [address] 555 Health Maintenance Due Date Last Done Comments [...] e / Group Dates AETNA - AETNA [id number] 2019-Porsha ARREOLA Me dicare Adv MANAGED MEDICARE [place]V nt [id number] [place] [address] documented as of this encounter
--- OUTSIDE RECORDS SUMMARY | 2020-05-18 08:36 | XMS REPORT | Summary of Care ---
:1955 Author Organization [facility] Address [address] [place] [address] Care Team Providers Name Role Phone Pcp, Does Not Have A Primary Care Provider Reason for Visit Reason Comments Pre-Transplant Appointment Talk To Nurse Encounter Details Date Type Department Care Team Description 05/16/2020 Telephone [facility] Cristian Regan, Pre-[place] splant; Transplant-[place] Appointment; Talk To [facility] [address] [place] [address]. Nurse [address] [place] [address] Entrance B [phone] [place] [address] Allergies Active Allergy Reactions Severity Noted Date Comments Cefuroxime Axetil Hives 12/26/2015 Codeine Unknown - See comments 12/26/2015 Sever e Headache Hydrocodone Other - See comments, 12/26/2015 headac hes Hives Latex Rash Low 04/25/2019 Naproxen Sodium Palpitations Low 12/26/2015 Sulfa (Sulfonamide Hives 04/25/2019 Antibiotics) Tramadol Swelling 12/26/2015 documented as of this encounter (statuses as of 05/16/2020) Medications Medication Sig Dispensed Refills Start Date [...] as of this encounter (statuses as of 05/16/2020) Active Problems Problem Noted Date Right knee pain 12/26/2015 documented as of this encounter (statuses as of 05/16/2020) Social History Tobacco Use Types Packs/Day Years Used Date Never Smoker Smokeless Tobacco: Current User Snuff Alcohol Use Drinks/Week oz/Week Comments No 0 Standard drinks or equivalent 0.0 Sex Assigned at Date Recorded Not on file COVID-19 Exposure Response Date Recorded In the last month, have you been in contact with No / Unsure 05/16/2020 8:35 AM CDT someone who was confirmed or suspected to have Coronavirus / COVID-19? documented as of this encounter Last Filed Vital Signs Not on filedocumented in this encounter Miscellaneous Notes Telephone Encounter - Sushila Sanders - 05/16/2020 1:22 PM CDTPatient would like to change dialysis centers shamika, he is not happy with his current one. He would like to schedule an appointment with Nephrology as well. documented in this encounter Plan of Treatment [...] e / Group Dates AETNA - AETNA [id number] 2019-Porsha P O BOX Me dicare Adv MANAGED MEDICARE [place]V nt [id number] [place] [address] documented as of this encounter
--- OUTSIDE RECORDS SUMMARY | 2020-05-18 08:37 | XMS REPORT | Summary of Care ---
:1955 Author Organization [facility] Address [address] [place], [place] [address] Care Team Providers Name Role Phone Pcp, Does Not Have A Primary Care Provider Reason for Referral MRI/CAT Scan (Routine) Status Reason Specialty Diagnoses / Referred By Referred To Procedures Contact Contact Closed Diagnostic Diagnoses Pre-transplant evaluation for kidney transplant Pre-transplant evaluation for kidney transplant Jass, Cristian Radiology Procedures CT ABDOMEN PELVIS W WO CONTRAST CHG CT SCAN,ABDOMENT AND PELVIS,COMBO CT ABDOMEN PELVIS W WO CONTRAST MD Javon [address] [place], [place] [address] Reason for Visit MRI/CAT Scan (Routine) Status Reason Specialty Diagnoses / Referred By Referred To Procedures Contact Contact Closed Diagnostic Diagnoses Pre-transplant evaluation for kidney transplant Pre-transplant evaluation for kidney transplant Jass, Cristian Radiology Procedures CT ABDOMEN PELVIS W WO CONTRAST CHG CT SCAN,ABDOMENT AND PELVIS,COMBO CT ABDOMEN PELVIS W WO CONTRAST MD Javon [address] [place] [address] Encounter Details Date Type Department Care Team Description 05/16/2020 Hospital Encounter [facility] Jass Cristian Jose Alejandro MD Tomography [address] [place], [place] [phone] Drive [phone] [place] [address] Allergies Active Allergy Reactions Severity Noted Date Comments Cefuroxime Axetil Hives 12/26/2015 Codeine Unknown - See comments 12/26/2015 Sever e Headache Hydrocodone Other - See comments, 12/26/2015 headac hes Hives Latex Rash Low 04/25/2019 Naproxen Sodium Palpitations Low 12/26/2015 Sulfa (Sulfonamide Hives 04/25/2019 Antibiotics) Tramadol Swelling 12/26/2015 documented as of this encounter (statuses as of 05/17/2020) Medications Medication Sig Dispensed Refills Start Date [...] as of this encounter (statuses as of 05/17/2020) Active Problems Problem Noted Date Right knee pain 12/26/2015 documented as of this encounter (statuses as of 05/17/2020) Social History Tobacco Use Types Packs/Day Years [...] Name Priority Date/Time Associated Diagnosis Comme nts CT ABDOMEN PELVIS W Routine 05/16/2020 9:52 AM Pre-transplant Results for this WO CONTRAST CDT evaluation for procedure are in kidney transplant the result s section. documented in this encounter Results CT ABDOMEN PELVIS W WO CONTRAST (05/16/2020 9:52 AM CDT) Specimen Narrative Performed At HISTORY: Prekidney transplant evaluation . PACS/VR/DOSE TECHNIQUE: [address] studies o f the abdomen, pelvis and lower extremities up to below the level of knee are performe d initially without contrast and subsequently after intravenous injection of nonionic contrast medium. Examination includes delayed jake ous phase imaging. Subsequently multiplanar as well as 3-D volume proces sing were performed. FINDINGS: Lower portions of the lungs included in this examination appear clear. Cholecystectomy noted. No focal liver lesions a ppreciated. No focal abnormality seen in the pancreas or sple en. Mild left adrenal gland hypertrophy noted. Right adren al gland is normal. Moderate diverticulosis of sigmoid and descending colo n noted without any acute changes of diverticulitis. Small b owel gas pattern appears normal. Normal appendix is visualized. No gross pathology detected in the unopa cified urinary bladder. Mild enlargement of the prostate gland noted. Lumbar degenerative changes noted with p rominent osteophytes at L1-L2, L3-L4 and postoperative changes of disce ctomy and dorsal fusion at the L4-L5. No kidney stones or hydronephrosis. Mild atrophy of the cortex of both kidneys noted. 2.5 cm cyst is noted in the right kidne y near the interpolar location. 1 cm and smaller sized cysts a re seen in the left kidney. No enhancing kidney lesions detected. ABDOMINAL AORTA: Mildly tortuous abdomin al aorta with minimal atherosclerosis. No aortic aneurysm. CELIAC, SMA, ALICE ARTERIES: All 3 arterie s are patent and showed no stenosis. Celiac axis is slightly dilate d without definite aneurysm formation. RENAL ARTERIES: Calcified plaque is seen in the anteri or wall of the right renal artery at origin causing approxima tely 50% stenosis. Left kidney is supplied by 2 renal arter ies arising from the abdominal aorta without significant atherosclerosi s. ILIAC, FEMORAL ARTERIES: Tortuous iliac arteries noted with atherosclerosis in left common iliac artery close to the origin of left internal iliac artery. Atherosclerosis with calcified plaque in the m edial wall of right common femoral artery at the origin of S FA. Minimal calcification in the right distal SFA/popliteal artery. Noncalcified plaque s are seen in distal half of the right SFA causing approximat lorena 50% stenosis. CONCLUSIONS: 1. One right renal artery and 2 left ashwin al arteries arising from the abdominal aorta with calcified plaque at the origin of right renal artery causing approximately 50% stenosis. 2. No hemodynamically significant diseas e in the abdominal aorta, celiac/SMA/ALICE arteries, femoral arterie s. Procedure Note [facility], Radiant Results Inft User - 2019 10:19 AM CDT HISTORY: Prekidney transplant evaluation. TECHNIQUE: [address] studies o f the abdomen, pelvis and lower extremities up to below the level of kne e are performed initially without contrast and subsequently after intraven ous injection of nonionic contrast medium. Examination includes delayed jake ous phase imaging. Subsequently multiplanar as well as 3-D volume proces sing were performed. FINDINGS: Lower portions of the lungs in cluded in this examination appear clear. Cholecystectomy noted. No focal l iver lesions appreciated. No focal abnormality seen in the pancreas or sple en. Mild left adrenal gland hypertrophy note d. Right adrenal gland is normal. Moderate diverticulosis of sigmoid and d escending colon noted without any acute changes of diverticulitis. Small b owel gas pattern appears normal. Normal appendix is visualized. No gross pathology detected in the unopa cified urinary bladder. Mild enlargement of the prostate gland noted. Lumbar degenerative changes noted with p rominent osteophytes at L1-L2, L3-L4 and postoperative changes of disce ctomy and dorsal fusion at the L4-L5. No kidney stones or hydronephrosis. Mild atrophy of the cortex of both kidneys noted. 2.5 cm cyst is noted in t he right kidney near the interpolar location. 1 cm and smaller sized cysts a re seen in the left kidney. No enhancing kidney lesions detected. ABDOMINAL AORTA: Mildly tortuous abdomin al aorta with minimal atherosclerosis. No aortic aneurysm. CELIAC, SMA, ALICE ARTERIES: All 3 arterie s are patent and showed no stenosis. Celiac axis is slightly dilate d without definite aneurysm formation. RENAL ARTERIES: Calcified plaque is seen in the anterior wall of the right renal artery at origin causing approxima tely 50% stenosis. Left kidney is supplied by 2 renal arter ies arising from the abdominal aorta without significant atherosclerosi s. ILIAC, FEMORAL ARTERIES: Tortuous iliac arteries noted with atherosclerosis in left common iliac artery close to the origin of left internal iliac artery. Atherosclerosis with calcified p laque in the medial wall of right common femoral artery at the origin of S FA. Minimal calcification in the right distal SFA/popliteal artery. Nonca lcified plaques are seen in distal half of the right SFA causing approximat lorena 50% stenosis. CONCLUSIONS: 1. One right renal artery and 2 left ashwin al arteries arising from the abdominal aorta with calcified plaque at the origin of right renal artery causing approximately 50% stenosis. 2. No hemodynamically significant diseas e in the abdominal aorta, celiac/SMA/ALICE arteries, femoral arterie s. Performing Organization Address City/State/Zipcode Phone Number PACS/VR/DOSE documented in this encounter Visit Diagnoses Diagnosis Pre-transplant evaluation for kidney tra nsplant documented in this encounter Administered Medications Medication Order MAR Action Action Date Dose Rate Site iohexol (OMNIPAQUE 350 BULK-150 Given 05/16/2020 9:35 AM CDT 15 0 mL mL) injection 150 mL 150 mL, Intravenous, ONCE, 1 dose, Thu05/16/20 at 0945, Routine documented in this encounter Insurance Payer Benefit Plan Subscriber ID Effective Phone Address Typ e / Group Dates AETNA - AETNA [id number] 2019-Porsha P O BOX Me dicare Adv MANAGED MEDICARE ADV nt [id number] [place] [address] documented as of this encounter
[2020-05-18] MEDS ORDERED: MIDAZOLAM HCL 2 MG/2 ML INJ ONE ×2 (08:43→10:12)
[2020-05-18] MEDS ORDERED: HEPARIN 5000 UNIT/ML 1 ML VIAL ONE (08:43)
[2020-05-18] MEDS ORDERED: HEPA 1000U/500MLS 2,000 UNIT/1,000 ML BAG IV ONE (08:43)
[2020-05-18] MEDS ORDERED: NITROGLYCERIN/D5W 25 MG/250 ML BTL IV ONE (08:44)
[2020-05-18] MEDS ORDERED: ATROPINE SULF 1 MG/10 ML SYR IV ONE (08:44)
[2020-05-18] MEDS ORDERED: LIDOCAINE 1% MPF 30 ML VIAL ONE (08:44)
[2020-05-18] MEDS ORDERED: FENTANYL CITR 100 MCG/2 ML ONE (08:44)
[2020-05-18] MEDS ORDERED: NICARDIPINE HCL 25 MG/10 ML IV ONE (08:44)
[2020-05-18] MEDS ORDERED: NITROGLYCERIN 100 MCG/ML SYR (for cath lab use only) IV ONE (08:44)
[2020-05-18] MEDS ORDERED: NA CHLORIDE 0.9% 500 ML ONE (08:56)
[2020-05-18] MEDS ORDERED: HEPARIN 10,000 UNIT/10 ML VIAL IV ONE (09:25)
[2020-05-18] MEDS ORDERED: HYDRALAZINE HCL 20 MG/ML VIAL IV ONE ×2 (11:09→12:24)
[2020-05-18] MEDS ORDERED: HYDRALAZINE HCL 20 MG/ML VIAL ONE ×2 (11:29→12:12)
[2020-05-18 13:14] VITALS: BP 159/70; TEMP 98.9; O2SAT 99
--- NOTE | 2020-05-19 01:47 | OP ---
Date of Procedure: 05/18/2020 Surgeon: PATRICK CASTILLO Procedure Performed: Selective coronary angiogram. Indication: Unstable angina. Access: Right radial artery 6-Mosotho, closed with TR band. Total Sedation Time: 50 minutes. Complications: None. Bleeding: Less than 5 mL. Description Of Procedure: After risks, benefits, and alternatives were explained to the patient, he agreed to the procedure and signed informed consent. The patient was brought to the cardiac catheter ization laboratory, prepped and draped in usual sterile fashion, and given fentanyl and Versed in inc remental doses to achieve adequate moderate sedation. Then, we accessed right radial artery using pe diatric micropuncture kit and placed a 6-Mosotho slender sheath and then took 5-Mosotho Rochelle catheter over the J-wire into the aortic root and engaged the left main coronary artery and the right coronary artery. We took standard views. Then, removed all wires, catheters, and sheath, and closed the acc ess with TR band with good hemostasis. Findings: 1.Severe ostial to proximal LAD stenosis, 80% to 90% and then there is mid LAD stent that is patent and mid to distal LAD appears normal and good size vessel. 2.Left main is large and normal. 3.Left circumflex is a very small artery, no disease. 4.RCA is very large artery dominant circulation with severe mid 90% stenosis and distally there is 2 0% stenosis and diffuse 10% to 20% stenosis elsewhere. Conclusion: Severe two-vessel coronary artery disease. Recommend evaluation by CT Surgery for cardi ac bypass surgery. Discussed the case with Dr. Delong at [facility] and he kindly ac cepted the patient. We will transfer the patient for cardiac bypass surgery. Explained the results to the patient and the family, and they agreed with the plan. /SAURABH Voice ID: [id number] Report ID: [id number]
== END 2020-05-18 13:54 | disposition short-term general hospital (02) ==
LOC: CCL 08:29
PROVIDERS: ATTEND Internal Medicine
DX: I25.110 Atherosclerotic heart disease of native coronary artery with unstable angina pectoris (principal); Z11.59 Encounter for screening for other viral diseases; E11.22 Type 2 diabetes mellitus with diabetic chronic kidney disease; I12.0 Hypertensive chronic kidney disease with stage 5 chronic kidney disease or end stage renal disease; N18.6 End stage renal disease; Z99.2 Dependence on renal dialysis; G47.30 Sleep apnea, unspecified; I65.23 Occlusion and stenosis of bilateral carotid arteries; F17.220 Nicotine dependence, chewing tobacco, uncomplicated; Z79.82 Long term (current) use of aspirin; Z79.02 Long term (current) use of antithrombotics/antiplatelets; Z79.4 Long term (current) use of insulin; Z79.899 Other long term (current) drug therapy; Z95.5 Presence of coronary angioplasty implant and graft
CPT/HCPCS: 93005; 85025; 80048; 36415; 85610; 82947 ×3; 85730; 93454; U0003; C1893; J0360 ×2; J1644 ×2; J2250; J3010; J7040

== ENCOUNTER 2020-06-25 19:12 | Emergency (ER) | payer OTHER ==
--- OUTSIDE RECORDS SUMMARY | 2020-06-25 19:14 | XMS REPORT | Clinical Summary ---
:1955 Author Organization [facility] Address [address] [place] [address] Care Team Providers Name Role Phone Mario Charlton MD Primary Care Provider Allergies Active Allergy Reactions Severity Noted Date Comments Naproxen Sodium Palpitations Low 04/25/2019 Cefuroxime Axetil Hives 04/25/2019 Codeine 04/25/2019 Severe Headache Hydrocodone Hives 04/25/2019 Latex Rash Low 04/25/2019 Sulfa (Sulfonamide Antibiotics) Hives 9 Tramadol Swelling 04/25/2019 Medications Medication Sig Dispensed Refills Start Date End Date Status insulin regular, Inject 32 Units 0 Active human (NOVOLIN R as directed 3 REGULAR U-100 INSULN (three) times a INJ) day before meals. insulin degludec Inject 70 Units 0 Active (TRESIBA FLEXTOUCH under the skin U-100 SUBQ) daily. DULoxetine (CYMBALTA) Take 60 mg by 0 Active 60 MG capsule mouth daily. clopidogrel (PLAVIX) Take 75 mg by 0 Active 75 mg tablet mouth daily. nebivolol (BYSTOLIC) Take 5 mg by 0 Active 5 MG tablet mouth daily. icosapent ethyl Take 2 g by 0 Ac tive (VASCEPA) 1 gram mouth 2 (two) capsule times a day. vit B complex-vitamin Take 1 tablet by 0 Active C-folic acid mouth daily. (DIALYVITE 800) 0.8 mg tablet amitriptyline Take 25 mg by 0 Ac tive (ELAVIL) 25 MG tablet mouth nightly. montelukast Take 10 mg by 0 Acti ve (SINGULAIR) 10 mg mouth nightly. tablet atorvastatin Take 80 mg by 0 Act raffaele (LIPITOR) 80 MG mouth nightly. tablet gabapentin Take 300 mg by 0 Acti ve (NEURONTIN) 300 mg mouth 3 (three) capsule times a day. aspirin (ECOTRIN) 81 Take 81 mg by 0 Active MG enteric coated mouth daily. tablet acetaminophen/chlorph Take 2 tablets 0 Active eniramine (CORICIDIN by mouth as HBP COLD AND FLU needed. ORAL) acetaminophen-codeine Take 1 tablet by 30 tablet 0 06/20/2019 06/27/2019 (TYLENOL WITH CODEINE mouth every 4 #3) 300-30 mg per (four) hours as tabletIndications: needed for acute pain moderate pain for up to 7 days .Acute Pain. Active Problems Problem Noted Date ESRD (end stage renal disease) 04/25/2019 Family History Medical History Relation Name Comments COPD Father Dementia Father Diabetes Mother Heart disease Mother Hypertension Mother Relation Name Status Comments Father Mother Social History Tobacco Use Types Packs/Day Years Used Date Never Smoker Smokeless Tobacco: Current User Snuff Alcohol Use Drinks/Week oz/Week Comments Not Currently Sex Assigned at Date Recorded Not on file Last Filed Vital Signs Not on file Plan of Treatment Health Maintenance Due Date Last Done Comments COLONOSCOPY SCREENING 2007 SHINGLES VACCINES (#1) 2007 INFLUENZA VACCINE 04/28/2020 Results Not on fileafter 06/25/2019 ([place]) [address] [place] [address] Advance Directives For more information, please contact: [phone] Type Date Recorded Patient Traffic I Manager Explanati on Advance Directives, Living Will 06/15/2019 2:15 PM and 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
--- OUTSIDE RECORDS SUMMARY | 2020-06-25 19:16 | XMS REPORT | Clinical Summary ---
:1955 Author Organization [facility] Address [address] [place] [address] Care Team Providers Name Role Phone Thom Gresham Unavailable Allergies Active Allergy Reactions Severity Noted Date Comments Beef Containing Products 06/03/2020 Cefuroxime Axetil 05/18/2020 Codeine 05/18/2020 migrines Latex 05/18/2020 Hydrocodone-Acetaminophen 05/18/2020 mi grines Sulfa (Sulfonamide Antibiotics) Hives 9 Tramadol 05/18/2020 Medications Medication Sig Dispensed Refills Start End Date Status Date aspirin 81 MG Take 81 mg by 0 Ac tive chewable tablet mouth. ONETOUCH ULTRA BLUE 0 Active TEST STRIP Strp 0 clopidogreL Take 75 mg by 0 Acti ve (PLAVIX) 75 mg mouth. tablet diflorasone APPLY 1-2 GRAMS 0 Ac tive (PSORCON) 0.05 % TO AFFECTED 0 cream AREA(S) UP TO 3-4 TIMES DAILY NEEDED, AVOID FACE. USE 2 WEEKS ON, 1 WEEK OFF LONG DIRECTED BY PHYSICIAN DIALYVITE 800-ULTRA Take 1 tablet by 0 Active D 0.8-2,000 mg-unit mouth daily. 0 Tab furosemide (LASIX) Take 80 mg by 0 Active 80 MG tablet mouth. gabapentin Take 300 mg by 0 Acti ve (NEURONTIN) 300 MG mouth nightly . capsule TRESIBA FLEXTOUCH INJECT 30 UNITS 0 Active U-200 200 unit/mL SUB Q DAILY 0 (3 mL) InPn NOVOLIN R REGULAR INJECT 12 UNITS 0 Active U-100 INSULN 100 DIRECTED 2 0 unit/mL injection TIMES A DAY ULTRA THIN LANCETS 0 A ctive 31 gauge Misc 0 lidocaine-prilocain APPLY 1-2 GRAMS 0 Active e (EMLA) 2.5-2.5 % TO AFFECTED 0 cream AREA(S) 3-4 TIMES DAILY LONG DIRECTED BY PHYSICIAN. polyethylene glycol Use 1-2 times per 0 Active (GLYCOLAX) 17 gram day per package 0 packet instructions. It is xzyv-uys-rhvlinn. metoprolol Take 1 tablet (50 60 tablet 2 06/01/20 A ctive succinate mg total) by 0 21 (TOPROL-XL) 50 MG mouth every 12 24 hr tablet (twelve) hours No more refills through my office. guaiFENesin Use as needed per 0 Active (MUCINEX) 600 mg 12 package 0 hr tablet instructions for congestion. It is aovg-owh-axzerhl. Do not use Mucinex with decongestant. atorvastatin Take 1 tablet (80 30 tablet 2 06/01/20 Active (LIPITOR) 80 MG mg total) by 0 21 tablet mouth nightly No more refills through my office. DULoxetine Take 1 capsule 30 capsule 1 06/02/20 Act raffaele (CYMBALTA) 20 MG (20 mg total) by 0 21 capsule mouth daily No more refills through my office. 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 Further dosing instructions and refills through outpatient cardiology. No refills through my office. acetaminophen Use as needed per 0 Active (TYLENOL) 325 MG package 0 tablet instructions for mild pain. Ok to take with oral dilaudid dosing. It is over the counter. ipratropium Inhale 2 puffs by 1 Inhaler 0 06/01/20 Active (ATROVENT HFA) 17 mouth via inhaler 0 21 mcg/actuation every 6 (six) inhaler hours. albuterol HFA USE ONE PUFF 0 06/01/20 Dis continued (VENTOLIN HFA) 90 EVERY 4 HOURS 0 20 mcg/actuation NEEDED inhaler amitriptyline Take 25 mg by 0 05/18/20 Di scontinued (ELAVIL) 25 MG mouth. 6 20 tablet amLODIPine Take 5 mg by 0 05/18/20 Discon tinued (NORVASC) 5 MG mouth. 6 20 tablet diclofenac 1 % Gel APPLY 1-2 GRAMS 0 05/18 Discontinued TO AFFECTED 0 20 AREA(S) 3-4 TIMES DAILY LONG DIRECTED BY PHYSICIAN. doxazosin (CARDURA) Take 1 mg by 0 0 Discontinued 1 MG tablet mouth. 6 20 dulaglutide 0 06/01/20 Disconti nued (TRULICITY) 1.5 6 20 mg/0.5 mL PnIj DULoxetine 0 05/18/20 Discontin ued (CYMBALTA) 60 MG 6 20 capsule DULoxetine Take 30 mg by 0 05/18/20 Disco ntinued (CYMBALTA) 30 MG mouth daily. 0 20 capsule ergocalciferol Take 1 capsule by 0 0 Discontinued (ERGOCALCIFEROL) mouth once a 0 20 1,250 mcg (50,000 week. unit) capsule fluticasone furoate Inhale 1 puff by 0 Discontinued 200 mcg/actuation mouth via 20 DsDv inhaler. ARNUITY ELLIPTA 200 TAKE 1 PUFF BY 0 05/18 Discontinued mcg/actuation DsDv MOUTH EVERY DAY 0 20 VASCEPA 1 gram Cap Take 2 capsules 0 05/18 Discontinued by mouth 2 (two) 0 20 times daily. isosorbide Take 30 mg by 0 05/18/20 Disco ntinued mononitrate (IMDUR) mouth. 6 20 30 MG 24 hr tablet losartan (COZAAR) Take 50 mg by 0 06/01/20 Discontinued 25 MG tablet mouth daily . 0 20 metoclopramide HCl 0 05/18/20 D iscontinued (REGLAN) 10 MG 0 20 tablet nebivoloL 0 05/18/20 Discontinu ed (BYSTOLIC) 10 MG 6 20 tablet HYDROmorphone Take 1 tablet (2 28 tablet 0 06/08/20 (DILAUDID) 2 MG mg total) by 0 20 tablet mouth every 6 (six) hours as needed (for severe acute postop pain.) for up to 7 days. Max Daily Amount: 8 mg Active Problems Problem Noted Date Acute post-operative pain 06/05/2020 Fluid overload 06/05/2020 SIRS (systemic inflammatory response syndrome) 020 s/p Pericardial Window 06/02/20 by 06/03/2020 Pericardial effusion with cardiac tamponade 06/03/2020 Acute pulmonary edema 06/01/2020 Insulin dependent type 2 diabetes mellitus 06/01/2020 PAF (paroxysmal atrial fibrillation) 06/01/2020 2vCABG 05/22/[address] Delong 05/18/2020 ESRD on hemodialysis Acute blood loss anemia Acute respiratory insufficiency Hypovolemic shock Hyperglycemia Encounters Date Type Specialty Care Team Description 06/03/2020 Surgery ANMOL Delong,PERICA RDIAL Nixon Xiong WINDOW 06/03/2020 Anesthesia Event Luz Wood MD 06/02/2020 Outside Orders Lab Gary Fox 05/22/2020 Surgery Sindi BYPASS,AORTO Nixon Xiong, CORONARY ALICE /SVG 05/22/2020 Anesthesia Event Cindy Kumar 05/19/2020 Orders Only General Internal Medicine 05/18/2020 - Hospital Encounter Cardiology Vignesh Watkins Coronary artery disease, angina presence unspecified, unspecified vessel or lesion type, unspecified whether [place] or transplanted heart (Primary Dx); 06/08/2020 MD Ricky Coronary artery disease of [place] heart with stable angina pectoris, unspecified vessel or lesion type (HCC); Subhash Richardson MD Chronic bila teral low back pain with sciatica, sciatica laterality unspecified; Mid back pain; Chest wall pain ; Polyneuropathy; 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, in partial remission (HCC); Acute blood los s anemia; Acute post-oper ative pain; ESRD on hemodia lysis (HCC); Other hypervole sher; Pericardial eff usion with cardiac tamponade; S/P pericardial window creation; SIRS (systemic inflammatory response syndrome) ([facility]); Anxiety 05/18/2020 Travel after 06/25/2019 Social History Tobacco Use Types Packs/Day Years Used Date Never Smoker Smokeless Tobacco: Current User Snuff Sex Assigned at Date Recorded Not on file Job Start Date Occupation Industry Not on file Not on file Not on file Travel History Travel Start Travel End No recent travel history available. Last Filed Vital Signs Vital Sign Reading Time Taken Blood Pressure 125/58 06/08/2020 7:00 AM CDT Pulse 75 06/08/2020 7:48 AM CDT Temperature 36.1 C (96.9 F) 06/08/2020 7:00 AM CDT Respiratory Rate 18 06/08/2020 7:48 AM CDT Oxygen Saturation 94% 06/08/2020 7:48 AM CDT Inhaled Oxygen Concentration 28% 06/07/2020 11:20 PM CDT Weight 143.6 kg (316 lb 9.3 oz) 06/07/2020 12:0 0 PM CDT Height 185.4 cm (6' 1") 05/18/2020 3:37 PM CDT Body Mass Index 41.77 06/07/2020 12:00 PM CDT Plan of Treatment Health Maintenance Due Date Last Done Comments COLON CANCER SCREENING COLONOSCOPY 1955 PNEUMOCOCCAL VACCINE 2-64 YEARS AT 1961 RISK (1 of 1 - PPSV23) DIABETIC EYE EXAM 1967 DIABETIC FOOT EXAM 1967 URINE MICROALBUMIN 1967 MEDICARE ANNUAL WELLNESS (YEAR 2 01/27/2017 or FIRST YEAR if no IPPE) INFLUENZA VACCINE (#1) 2020 HEMOGLOBIN A1C 11/21/2020 05/21/2020, 05/18/2020 LIPID PANEL 05/21/2023 05/21/2020, 05/18/2020, 04/25/2020, Additional history exists Procedures Procedure Name Priority Date/Time Associated Comments Diagnosis RHYTHM STRIP - SCAN 06/20/2020 5:37 PM CDT RHYTHM STRIP - SCAN 06/12/2020 10:31 AM CDT POCT-GLUCOSE METER Routine 06/08/2020 7:28 Resul ts for AM CDT this procedure are in the results section. (CELLAVISION MANUAL Routine 06/08/2020 6:29 Resu lts for DIFF) AM CDT this procedure are in the results section. CBC WITH PLATELET Routine 06/08/2020 6:29 Result s for COUNT + MANUAL DIFF AM CDT this pro cedure are in the results section. CBC W/PLT COUNT & Routine 06/08/2020 6:29 Result s for AUTO DIFFERENTIAL AM CDT this proce dure are in the results section. CBC W/PLT+MANUAL DIFF Routine 06/08/2020 6:29 Re sults for AM CDT this procedure are in the results section. CBC W/PLT COUNT & Routine 06/08/2020 6:29 Result s for AUTO DIFFERENTIAL AM CDT this proce dure are in the results section. POCT-GLUCOSE METER Routine 06/07/2020 9:13 Resul ts for PM CDT this procedure are in the results section. POCT-GLUCOSE METER Routine 06/07/2020 4:08 Resul ts for PM CDT this procedure are in the results section. POCT-GLUCOSE METER Routine 06/07/2020 11:06 Resul ts for AM CDT this procedure are in the results section. HEMODIALYSIS Routine 06/07/2020 8:18 INPATIENT AM CDT POCT-GLUCOSE METER Routine 06/07/2020 7:38 Resul ts for AM CDT this procedure are in the results section. XR CHEST 1 VIEW Routine 06/07/2020 4:34 Results for PORTABLE/BEDSIDE AM CDT this proced ure are in the results section. (CELLAVISION MANUAL Routine 06/07/2020 3:34 Resu lts for DIFF) AM CDT this procedure are in the results section. CBC WITH PLATELET Routine 06/07/2020 3:34 Result s for COUNT + MANUAL DIFF AM CDT this pro cedure are in the results section. PHOSPHORUS Add-On 06/07/2020 3:34 Results for AM CDT this procedure are in the results section. MAGNESIUM Routine 06/07/2020 3:34 Results for AM CDT this procedure are in the results section. BASIC METABOLIC PANEL Routine 06/07/2020 3:34 Re sults for (7) AM CDT this procedure are in the results section. CBC W/PLT+MANUAL DIFF Routine 06/07/2020 3:34 Re sults for AM CDT this procedure are in the results section. POCT-GLUCOSE METER Routine 06/06/2020 9:09 Resul ts for PM CDT this procedure are in the results section. POCT-GLUCOSE METER Routine 06/06/2020 4:36 Resul ts for PM CDT this procedure are in the results section. POCT-GLUCOSE METER Routine 06/06/2020 11:32 Resul ts for AM CDT this procedure are in the results section. POCT-GLUCOSE METER Routine 06/06/2020 7:18 Resul ts for AM CDT this procedure are in the results section. CBC W/PLT COUNT & Routine 06/06/2020 6:50 Result s for AUTO DIFFERENTIAL AM CDT this proce dure are in the results section. CBC W/PLT COUNT & Routine 06/06/2020 6:50 Result s for AUTO DIFFERENTIAL AM CDT this proce dure are in the results section. BASIC METABOLIC PANEL Routine 06/06/2020 6:48 Re sults for (7) AM CDT this procedure are in the results section. XR CHEST 1 VIEW Routine 06/06/2020 4:47 Results for PORTABLE/BEDSIDE AM CDT this proced ure are in the results section. POCT-GLUCOSE METER Routine 06/05/2020 11:03 Resul ts for PM CDT this procedure are in the results section. TRANSFUSION SERVICE 06/05/2020 6:21 REPORT - SCAN PM CDT POCT-GLUCOSE METER Routine 06/05/2020 4:56 Resul ts for PM CDT this procedure are in the results section. CALCIUM, IONIZED STAT 06/05/2020 2:10 Results for PM CDT this procedure are in the results section. HEMODIALYSIS Routine 06/05/2020 1:56 INPATIENT PM CDT HEMODIALYSIS Routine 06/05/2020 1:56 INPATIENT PM CDT HEMODIALYSIS Routine 06/05/2020 1:56 INPATIENT PM CDT POCT-GLUCOSE METER Routine 06/05/2020 1:03 Resul ts for PM CDT this procedure are in the results section. PHOSPHORUS STAT 06/05/2020 6:12 Results for AM CDT this procedure are in the results section. MAGNESIUM STAT 06/05/2020 6:12 Results for AM CDT this procedure are in the results section. CBC (HEMOGRAM ONLY) STAT 06/05/2020 6:12 Resu lts for AM CDT this procedure are in the results section. BASIC METABOLIC PANEL STAT 06/05/2020 6:12 Re sults for (7) AM CDT this procedure are in the results section. POCT-GLUCOSE METER Routine 06/05/2020 6:06 Resul ts for AM CDT this procedure are in the results section. XR CHEST 1 VIEW Routine 06/05/2020 1:09 Results for PORTABLE/BEDSIDE AM CDT this proced ure are in the results section. PREPARE RBC STAT 06/04/2020 11:54 Results for PM CDT this procedure are in the results section. TRANSFUSION SERVICE 06/04/2020 6:01 REPORT - SCAN PM CDT POCT-GLUCOSE METER Routine 06/04/2020 3:55 Resul ts for PM CDT this procedure are in the results section. POCT-GLUCOSE METER Routine 06/04/2020 12:54 Resul ts for PM CDT this procedure are in the results section. POCT-GLUCOSE METER Routine 06/04/2020 8:02 Resul ts for AM CDT this procedure are in the results section. CBC W/PLT COUNT & Routine 06/04/2020 3:56 Result s for AUTO DIFFERENTIAL AM CDT this proce dure are in the results section. MAGNESIUM Routine 06/04/2020 3:56 Results for AM CDT this procedure are in the results section. BASIC METABOLIC PANEL Routine 06/04/2020 3:56 Re sults for (7) AM CDT this procedure are in the results section. CBC W/PLT COUNT & Routine 06/04/2020 3:56 Result s for AUTO DIFFERENTIAL AM CDT this proce dure are in the results section. XR CHEST 1 VIEW Routine 06/04/2020 1:49 Results for PORTABLE/BEDSIDE AM CDT this proced ure are in the results section. POCT-GLUCOSE METER Routine 06/03/2020 5:17 Resul ts for PM CDT this procedure are in the results section. BLOOD GAS, ARTERIAL Routine 06/03/2020 5:00 Resu lts for PM CDT this procedure are in the results section. BLOOD GAS, ARTERIAL Routine 06/03/2020 2:26 Resu lts for PM CDT this procedure are in the results section. XR CHEST 1 VIEW STAT 06/03/2020 11:07 Results for PORTABLE/BEDSIDE AM CDT this proced ure are in the results section. CALCIUM, IONIZED STAT 06/03/2020 10:32 Results for AM CDT this procedure are in the results section. PHOSPHORUS Routine 06/03/2020 10:31 Results for AM CDT this procedure are in the results section. LACTIC ACID, ARTERIAL STAT 06/03/2020 10:31 Re sults for AM CDT this procedure are in the results section. MAGNESIUM Routine 06/03/2020 10:31 Results for AM CDT this procedure are in the results section. BASIC METABOLIC PANEL Routine 06/03/2020 10:31 Re sults for (7) AM CDT this procedure are in the results section. CBC (HEMOGRAM ONLY) Routine 06/03/2020 10:31 Resu lts for AM CDT this procedure are in the results section. PROTHROMBIN TIME/INR STAT 06/03/2020 10:31 Res ults for AM CDT this procedure are in the results section. APTT STAT 06/03/2020 10:31 Results for AM CDT this procedure are in the results section. FIBRINOGEN STAT 06/03/2020 10:31 Results for AM CDT this procedure are in the results section. BLOOD GAS, ARTERIAL STAT 06/03/2020 10:31 Resu lts for AM CDT this procedure are in the results section. TRANSFUSE Routine 06/03/2020 8:56 LEUKO-REDUCED RED AM CDT BLOOD CELLS SUNNY 06/03/2020 8:00 Pericardial AM CDT tamponade CREATION,PERICARDIAL 06/03/2020 8:00 Pericardial WINDOW AM CDT tamponade ECG 12-LEAD Routine 06/03/2020 5:38 Results for AM CDT this procedure are in the results section. TYPE AND SCREEN, Routine 06/03/2020 4:34 Results for AUTOMATED AM CDT this procedure are in the results section. MAGNESIUM Routine 06/03/2020 4:34 Results for AM CDT this procedure are in the results section. BASIC METABOLIC PANEL Routine 06/03/2020 4:34 Re sults for (7) AM CDT this procedure are in the results section. HEMODIALYSIS Routine 06/02/2020 10:41 Results for INPATIENT PM CDT this procedure are in the results section. SARS-COV2/RT-PCR Routine 06/02/2020 6:03 Results for ([facility]) PM CDT this proce dure are in the results section. POCT-GLUCOSE METER Routine 06/02/2020 4:18 Resul ts for PM CDT this procedure are in the results section. CT CHEST WITHOUT IV Routine 06/02/2020 1:24 Resu lts for CONTRAST PM CDT this procedure are in the results section. POCT-GLUCOSE METER Routine 06/02/2020 11:23 Resul ts for AM CDT this procedure are in the results section. POCT-GLUCOSE METER Routine 06/02/2020 7:31 Resul ts for AM CDT this procedure are in the results section. CBC W/PLT COUNT & Routine 06/02/2020 4:07 Result s for AUTO DIFFERENTIAL AM CDT this proce dure are in the results section. MAGNESIUM Routine 06/02/2020 4:07 Results for AM CDT this procedure are in the results section. BASIC METABOLIC PANEL Routine 06/02/2020 4:07 Re sults for (7) AM CDT this procedure are in the results section. CBC W/PLT COUNT & Routine 06/02/2020 4:07 Result s for AUTO DIFFERENTIAL AM CDT this proce dure are in the results section. POCT-GLUCOSE METER Routine 06/01/2020 9:09 Resul ts for PM CDT this procedure are in the results section. LIMITED 2D STAT(After 06/01/2020 8:17 Results for ECHOCARDIOGRAM Hours Page PM CDT this procedur e Staff) are in the results section. POCT-GLUCOSE METER Routine 06/01/2020 7:46 Resul ts for PM CDT this procedure are in the results section. XR CHEST 1 VIEW STAT 06/01/2020 7:36 Results for PORTABLE/BEDSIDE PM CDT this proced ure are in the results section. POCT-GLUCOSE METER Routine 06/01/2020 4:36 Resul ts for PM CDT this procedure are in the results section. POCT-GLUCOSE METER Routine 06/01/2020 11:20 Resul ts for AM CDT this procedure are in the results section. POCT-GLUCOSE METER Routine 06/01/2020 7:24 Resul ts for AM CDT this procedure are in the results section. MAGNESIUM Routine 06/01/2020 6:05 Results for AM CDT this procedure are in the results section. BASIC METABOLIC PANEL Routine 06/01/2020 6:05 Re sults for (7) AM CDT this procedure are in the results section. POCT-GLUCOSE METER Routine 05/31/2020 8:24 Resul ts for PM CDT this procedure are in the results section. POCT-GLUCOSE METER Routine 05/31/2020 4:00 Resul ts for PM CDT this procedure are in the results section. POCT-GLUCOSE METER Routine 05/31/2020 1:20 Resul ts for PM CDT this procedure are in the results section. HEMODIALYSIS Routine 05/31/2020 9:22 INPATIENT AM CDT POCT-GLUCOSE METER Routine 05/31/2020 7:53 Resul ts for AM CDT this procedure are in the results section. MAGNESIUM Routine 05/31/2020 5:43 Results for AM CDT this procedure are in the results section. BASIC METABOLIC PANEL Routine 05/31/2020 5:43 Re sults for (7) AM CDT this procedure are in the results section. CBC (HEMOGRAM ONLY) Routine 05/31/2020 5:43 Resu lts for AM CDT this procedure are in the results section. POCT-GLUCOSE METER Routine 05/30/2020 9:17 Resul ts for PM CDT this procedure are in the results section. POCT-GLUCOSE METER Routine 05/30/2020 4:22 Resul ts for PM CDT this procedure are in the results section. POCT-GLUCOSE METER Routine 05/30/2020 11:35 Resul ts for AM CDT this procedure are in the results section. XR CHEST 1 VIEW STAT 05/30/2020 8:57 Results for PORTABLE/BEDSIDE AM CDT this proced ure are in the results section. ECG 12-LEAD Routine 05/30/2020 7:10 AM CDT Procedure Note - Interface, External Ris In - 05/30/2020 7:19 AM CDT Ventricular Rate 78 BPM Atrial Rate 78 BPM P-R Interval 162 ms QRS Duration 92 ms Q-T Interval 396 ms QTC Calculation(Bazett) 451 ms P Herscher 18 degrees R Herscher 31 degrees T Herscher 11 degrees Normal sinus rhythm Nonspecific ST and T wave ab normality Abnormal ECG When compared with ECG of 07:09, No significant change was fo und ECG 12-LEAD Routine 05/30/2020 7:09 AM CDT Procedure Note - Interface, External Ris In - 05/30/2020 7:18 AM CDT Ventricular Rate 78 BPM Atrial Rate 78 BPM P-R Interval 168 ms QRS Duration 88 ms Q-T Interval 412 ms QTC Calculation(Bazett) 469 ms P Herscher 20 degrees R Herscher 33 degrees T Herscher 15 degrees Normal sinus rhythm Nonspecific ST and T wave ab normality Prolonged QT Abnormal ECG When compared with ECG of 00:37, No significant change was fo und ECG 12-LEAD STAT 05/30/2020 7:09 AM CDT Resu lts for this procedure are i n the results section . POCT-GLUCOSE METER Routine 05/30/2020 6:56 AM CDT Results for this procedure are i n the results section . MAGNESIUM Routine 05/30/2020 5:38 AM CDT Resu lts for this procedure are i n the results section . BASIC METABOLIC PANEL (7) Routine 05/30/2020 5:38 AM CDT Results for this procedure are i n the results section . CBC (HEMOGRAM ONLY) Routine 05/30/2020 5:38 AM CDT Results for this procedure are i n the results section . ECG 12-LEAD Routine 05/30/2020 12:37 AM CDT Procedure Note - Interface, External Ris In - 05/30/2020 12:44 AM CDT Ventricular Rate 80 BPM Atrial Rate 80 BPM P-R Interval 168 ms QRS Duration 94 ms Q-T Interval 394 ms QTC Calculation(Bazett) 454 ms P Herscher 26 degrees R Herscher 37 degrees T Herscher 23 degrees Normal sinus rhythm Nonspecific ST and T wave ab normality Abnormal ECG When compared with ECG of 08:07, Sinus rhythm has replaced At [facility] fibrillation Vent. rate has decreased BY 61 BPM ECG 12-LEAD STAT 05/30/2020 12:37 AM CDT Resu lts for this procedure are i n the results section . POCT-GLUCOSE METER Routine 05/29/2020 8:57 PM CDT Results for this procedure are i n the results section . POCT-GLUCOSE METER Routine 05/29/2020 4:38 PM CDT Results for this procedure are i n the results section . 2D ECHO W/ DOPPLER STAT 05/29/2020 1:10 PM CDT Results for this (CW/PW/COLOR) procedure are in the results section . POCT-GLUCOSE METER Routine 05/29/2020 12:30 PM CDT Results for this procedure are i n the results section . POCT-GLUCOSE METER Routine 05/29/2020 9:23 AM CDT Results for this procedure are i n the results section . HEMODIALYSIS INPATIENT Routine 05/29/2020 7:44 AM CDT B-TYPE NATRIURETIC FACTOR Routine 05/29/2020 5:48 AM CDT Results for this (BNP) procedure are i n the results section . MAGNESIUM Routine 05/29/2020 5:48 AM CDT Resu lts for this procedure are i n the results section . BASIC METABOLIC PANEL (7) Routine 05/29/2020 5:48 AM CDT Results for this procedure are i n the results section . CBC (HEMOGRAM ONLY) Routine 05/29/2020 5:48 AM CDT Results for this procedure are i n the results section . POCT-GLUCOSE METER Routine 05/28/2020 9:07 PM CDT Results for this procedure are i n the results section . POCT-GLUCOSE METER Routine 05/28/2020 4:29 PM CDT Results for this procedure are i n the results section . POCT-GLUCOSE METER Routine 05/28/2020 11:02 AM CDT Results for this procedure are i n the results section . ECG 12-LEAD Routine 05/28/2020 8:07 AM CDT Procedure Note - Interface, External Ris In - 05/28/2020 8:13 AM CDT Ventricular Rate 141 BPM Atrial Rate 250 BPM QRS Duration 90 ms Q-T Interval 294 ms QTC Calculation(Bazett) 450 ms R Herscher 30 degrees T Herscher -34 degrees Atrial fibrillation with rap id ventricular response Nonspecific T wave abnormali ty Abnormal ECG When compared with ECG of 17:48, Atrial fibrillation has repl aced Sinus rhythm Vent. rate has increased BY 71 BPM Nonspecific T wave abnormali ty now evident in Lateral leads ECG 12-LEAD STAT 05/28/2020 8:07 Results for this AM CDT procedure are i n the results section. POCT-GLUCOSE METER Routine 05/28/2020 7:07 Resul ts for this AM CDT procedure are i n the results section. CBC (HEMOGRAM ONLY) Routine 05/28/2020 4:45 Resu lts for this AM CDT procedure are i n the results section. PHOSPHORUS Routine 05/28/2020 4:45 Results for this AM CDT procedure are i n the results section. BASIC METABOLIC PANEL Routine 05/28/2020 4:45 Re sults for this (7) AM CDT procedure are i n the results section. POCT-GLUCOSE METER Routine 05/27/2020 9:17 Resul ts for this PM CDT procedure are i n the results section. POCT-GLUCOSE METER Routine 05/27/2020 4:31 Resul ts for this PM CDT procedure are i n the results section. POCT-GLUCOSE METER Routine 05/27/2020 11:36 Resul ts for this AM CDT procedure are i n the results section. POCT-GLUCOSE METER Routine 05/27/2020 6:47 Resul ts for this AM CDT procedure are i n the results section. CBC (HEMOGRAM ONLY) Routine 05/27/2020 4:21 Resu lts for this AM CDT procedure are i n the results section. PHOSPHORUS Routine 05/27/2020 4:21 Results for this AM CDT procedure are i n the results section. BASIC METABOLIC PANEL Routine 05/27/2020 4:21 Re sults for this (7) AM CDT procedure are i n the results section. POCT-GLUCOSE METER Routine 05/26/2020 9:00 Resul ts for this PM CDT procedure are i n the results section. POCT-GLUCOSE METER Routine 05/26/2020 4:01 Resul ts for this PM CDT procedure are i n the results section. HEMODIALYSIS INPATIENT Routine 05/26/2020 11:45 R esults for this AM CDT procedure are i n the results section. POCT-GLUCOSE METER Routine 05/26/2020 11:33 Resul ts for this AM CDT procedure are i n the results section. CBC (HEMOGRAM ONLY) Routine 05/26/2020 5:26 Resu lts for this AM CDT procedure are i n the results section. PHOSPHORUS Routine 05/26/2020 5:26 Results for this AM CDT procedure are i n the results section. BASIC METABOLIC PANEL Routine 05/26/2020 5:26 Re sults for this (7) AM CDT procedure are i n the results section. SARS-COV2/RT-PCR ([facility] Routine 05/25/2020 6:58 R esults for this & REF LABS) PM CDT procedure are i n the results section. POCT-GLUCOSE METER Routine 05/25/2020 6:13 Resul ts for this PM CDT procedure are i n the results section. HEMODIALYSIS INPATIENT Routine 05/25/2020 6:06 R esults for this PM CDT procedure are i n the results section. POCT-GLUCOSE METER Routine 05/25/2020 11:20 Resul ts for this AM CDT procedure are i n the results section. POCT-GLUCOSE METER Routine 05/25/2020 7:25 Resul ts for this AM CDT procedure are i n the results section. BLOOD GAS, ARTERIAL Routine 05/25/2020 6:33 Resu lts for this AM CDT procedure are i n the results section. CBC (HEMOGRAM ONLY) Routine 05/25/2020 3:47 Resu lts for this AM CDT procedure are i n the results section. PHOSPHORUS Routine 05/25/2020 3:47 Results for this AM CDT procedure are i n the results section. BASIC METABOLIC PANEL Routine 05/25/2020 3:47 Re sults for this (7) AM CDT procedure are i n the results section. XR CHEST 1 VIEW Routine 05/25/2020 12:45 Results for this PORTABLE/BEDSIDE AM CDT procedure a re in the results section. POCT-GLUCOSE METER Routine 05/24/2020 10:51 Resul ts for this PM CDT procedure are i n the results section. RHYTHM STRIP - SCAN 05/24/2020 4:20 PM CDT POCT-GLUCOSE METER Routine 05/24/2020 3:58 Resul ts for this PM CDT procedure are i n the results section. POCT-GLUCOSE METER Routine 05/24/2020 11:48 Resul ts for this AM CDT procedure are i n the results section. POCT-GLUCOSE METER Routine 05/24/2020 6:47 Resul ts for this AM CDT procedure are i n the results section. CBC (HEMOGRAM ONLY) Routine 05/24/2020 4:44 Resu lts for this AM CDT procedure are i n the results section. BLOOD GAS, ARTERIAL Routine 05/24/2020 4:44 Resu lts for this AM CDT procedure are i n the results section. PHOSPHORUS Routine 05/24/2020 4:44 Results for this AM CDT procedure are i n the results section. BASIC METABOLIC PANEL Routine 05/24/2020 4:44 Re sults for this (7) AM CDT procedure are i n the results section. POCT-GLUCOSE METER Routine 05/24/2020 2:10 Resul ts for this AM CDT procedure are i n the results section. XR CHEST 1 VIEW STAT 05/24/2020 12:50 Results for this PORTABLE/BEDSIDE AM CDT procedure a re in the results section. MAGNESIUM STAT 05/23/2020 11:49 Results for this PM CDT procedure are i n the results section. CBC (HEMOGRAM ONLY) STAT 05/23/2020 11:49 Resu lts for this PM CDT procedure are i n the results section. BASIC METABOLIC PANEL STAT 05/23/2020 11:49 Re sults for this (7) PM CDT procedure are i n the results section. POCT-GLUCOSE METER Routine 05/23/2020 11:48 Resul ts for this PM CDT procedure are i n the results section. POCT-GLUCOSE METER Routine 05/23/2020 10:52 Resul ts for this PM CDT procedure are i n the results section. POCT-GLUCOSE METER Routine 05/23/2020 9:09 Resul ts for this PM CDT procedure are i n the results section. POCT-GLUCOSE METER Routine 05/23/2020 8:14 Resul ts for this PM CDT procedure are i n the results section. POCT-GLUCOSE METER Routine 05/23/2020 6:27 Resul ts for this PM CDT procedure are i n the results section. TRANSFUSION SERVICE 05/23/2020 6:03 REPORT - SCAN PM CDT POCT-GLUCOSE METER Routine 05/23/2020 5:42 Resul ts for this PM CDT procedure are i n the results section. POCT-GLUCOSE METER Routine 05/23/2020 4:41 Resul ts for this PM CDT procedure are i n the results section. POCT-GLUCOSE METER Routine 05/23/2020 2:58 Resul ts for this PM CDT procedure are i n the results section. POCT-GLUCOSE METER Routine 05/23/2020 1:31 Resul ts for this PM CDT procedure are i n the results section. POCT-GLUCOSE METER Routine 05/23/2020 12:27 Resul ts for this PM CDT procedure are i n the results section. POCT-GLUCOSE METER Routine 05/23/2020 11:37 Resul ts for this AM CDT procedure are i n the results section. POCT-GLUCOSE METER Routine 05/23/2020 10:35 Resul ts for this AM CDT procedure are i n the results section. POCT-GLUCOSE METER Routine 05/23/2020 9:34 Resul ts for this AM CDT procedure are i n the results section. POCT-GLUCOSE METER Routine 05/23/2020 8:23 Resul ts for this AM CDT procedure are i n the results section. POCT-GLUCOSE METER Routine 05/23/2020 7:37 Resul ts for this AM CDT procedure are i n the results section. POCT-GLUCOSE METER Routine 05/23/2020 6:45 Resul ts for this AM CDT procedure are i n the results section. POCT-GLUCOSE METER Routine 05/23/2020 5:23 Resul ts for this AM CDT procedure are i n the results section. POCT-GLUCOSE METER Routine 05/23/2020 3:41 Resul ts for this AM CDT procedure are i n the results section. OXYGEN SATURATION, Routine 05/23/2020 3:27 Resul ts for this MEASURED AM CDT procedure are i n the results section. CBC (HEMOGRAM ONLY) Routine 05/23/2020 3:27 Resu lts for this AM CDT procedure are i n the results section. BLOOD GAS, ARTERIAL Routine 05/23/2020 3:27 Resu lts for this AM CDT procedure are i n the results section. PHOSPHORUS Routine 05/23/2020 3:27 Results for this AM CDT procedure are i n the results section. MAGNESIUM Routine 05/23/2020 3:27 Results for this AM CDT procedure are i n the results section. BASIC METABOLIC PANEL Routine 05/23/2020 3:27 Re sults for this (7) AM CDT procedure are i n the results section. LACTIC ACID, ARTERIAL STAT 05/23/2020 3:27 Re sults for this AM CDT procedure are i n the results section. POCT-GLUCOSE METER Routine 05/23/2020 2:39 Resul ts for this AM CDT procedure are i n the results section. XR CHEST 1 VIEW Routine 05/23/2020 2:12 Results for this PORTABLE/BEDSIDE AM CDT procedure a re in the results section. POCT-GLUCOSE METER Routine 05/23/2020 12:35 Resul ts for this AM CDT procedure are i n the results section. BLOOD GAS, ARTERIAL STAT 05/23/2020 12:28 Resu lts for this AM CDT procedure are i n the results section. LACTIC ACID, ARTERIAL STAT 05/23/2020 12:28 Re sults for this AM CDT procedure are i n the results section. GLUCOSE-STAT LAB STAT 05/23/2020 12:28 Results for this AM CDT procedure are i n the results section. POCT-GLUCOSE METER Routine 05/22/2020 10:59 Resul ts for this PM CDT procedure are i n the results section. POCT-GLUCOSE METER Routine 05/22/2020 10:13 Resul ts for this PM CDT procedure are i n the results section. CALCIUM, IONIZED STAT 05/22/2020 10:06 Results for this PM CDT procedure are i n the results section. PHOSPHORUS STAT 05/22/2020 10:04 Results for this PM CDT procedure are i n the results section. MAGNESIUM Routine 05/22/2020 10:04 Results for this PM CDT procedure are i n the results section. BASIC METABOLIC PANEL STAT 05/22/2020 10:04 Re sults for this (7) PM CDT procedure are i n the results section. LACTIC ACID, ARTERIAL STAT 05/22/2020 10:04 Re sults for this PM CDT procedure are i n the results section. BLOOD GAS, ARTERIAL STAT 05/22/2020 10:04 Resu lts for this PM CDT procedure are i n the results section. POCT-GLUCOSE METER Routine 05/22/2020 8:49 Resul ts for this PM CDT procedure are i n the results section. CALCIUM, IONIZED Routine 05/22/2020 7:15 Results for this PM CDT procedure are i n the results section. BASIC METABOLIC PANEL Routine 05/22/2020 7:15 Re sults for this (7) PM CDT procedure are i n the results section. BLOOD GAS, ARTERIAL Routine 05/22/2020 7:15 Resu lts for this PM CDT procedure are i n the results section. LACTIC ACID, ARTERIAL STAT 05/22/2020 7:15 Re sults for this PM CDT procedure are i n the results section. POTASSIUM STAT 05/22/2020 7:15 Results for this PM CDT procedure are i n the results section. GLUCOSE STAT 05/22/2020 7:15 Results for this PM CDT procedure are i n the results section. POCT-GLUCOSE METER Routine 05/22/2020 6:39 Resul ts for this PM CDT procedure are i n the results section. TRANSFUSION SERVICE 05/22/2020 6:21 REPORT - SCAN PM CDT PREPARE RBC STAT 05/22/2020 5:44 Results for this PM CDT procedure are i n the results section. POCT-GLUCOSE METER Routine 05/22/2020 5:23 Resul ts for this PM CDT procedure are i n the results section. CBC (HEMOGRAM ONLY) Routine 05/22/2020 4:21 Resu lts for this PM CDT procedure are i n the results section. OXYGEN SATURATION, Routine 05/22/2020 4:18 Resul ts for this MEASURED PM CDT procedure are i n the results section. BASIC METABOLIC PANEL Routine 05/22/2020 4:18 Re sults for this (7) PM CDT procedure are i n the results section. POTASSIUM STAT 05/22/2020 4:18 Results for this PM CDT procedure are i n the results section. GLUCOSE STAT 05/22/2020 4:18 Results for this PM CDT procedure are i n the results section. LACTIC ACID, ARTERIAL STAT 05/22/2020 4:18 Re sults for this PM CDT procedure are i n the results section. BLOOD GAS, ARTERIAL STAT 05/22/2020 4:18 Resu lts for this PM CDT procedure are i n the results section. POCT-GLUCOSE METER Routine 05/22/2020 4:11 Resul ts for this PM CDT procedure are i n the results section. OXYGEN SATURATION, STAT 05/22/2020 1:48 Resul ts for this MEASURED PM CDT procedure are i n the results section. BLOOD GAS, ARTERIAL STAT 05/22/2020 1:48 Resu lts for this PM CDT procedure are i n the results section. XR CHEST 1 VIEW STAT 05/22/2020 1:28 Results for this PORTABLE/BEDSIDE PM CDT procedure a re in the results section. D-DIMER STAT 05/22/2020 1:09 Results for this PM CDT procedure are i n the results section. FIBRINOGEN STAT 05/22/2020 1:09 Results for this PM CDT procedure are i n the results section. PT/APTT STAT 05/22/2020 1:09 Results for this PM CDT procedure are i n the results section. PHOSPHORUS STAT 05/22/2020 1:09 Results for this PM CDT procedure are i n the results section. MAGNESIUM STAT 05/22/2020 1:09 Results for this PM CDT procedure are i n the results section. LACTIC ACID, ARTERIAL STAT 05/22/2020 1:09 Re sults for this PM CDT procedure are i n the results section. COMPREHENSIVE STAT 05/22/2020 1:09 Results fo r this METABOLIC PANEL PM CDT procedure ar e in the results section. CBC (HEMOGRAM ONLY) STAT 05/22/2020 1:09 Resu lts for this PM CDT procedure are i n the results section. OXYGEN SATURATION, STAT 05/22/2020 1:08 Resul ts for this MEASURED PM CDT procedure are i n the results section. BLOOD GAS, ARTERIAL STAT 05/22/2020 1:08 Resu lts for this PM CDT procedure are i n the results section. POCT-ACT Routine 05/22/2020 11:31 Results for this AM CDT procedure are i n the results section. HGB/HCT (H&H) - STAT STAT 05/22/2020 11:29 Res ults for this LAB AM CDT procedure are i n the results section. GLUCOSE-STAT LAB STAT 05/22/2020 11:29 Results for this AM CDT procedure are i n the results section. POTASSIUM-STAT LAB STAT 05/22/2020 11:29 Resul ts for this AM CDT procedure are i n the results section. SODIUM NA-STAT LAB STAT 05/22/2020 11:29 Resul ts for this AM CDT procedure are i n the results section. BLOOD GAS, ARTERIAL STAT 05/22/2020 11:29 Resu lts for this AM CDT procedure are i n the results section. CALCIUM, IONIZED STAT 05/22/2020 11:29 Results for this AM CDT procedure are i n the results section. RRL CRITICAL LABS STAT 05/22/2020 11:29 Result s for this (ABG,NA,K,H&H,GLUCOSE) AM CDT proce dure are in the results section. POCT-ACT Routine 05/22/2020 10:51 Results for this AM CDT procedure are i n the results section. POCT-ACT Routine 05/22/2020 10:19 Results for this AM CDT procedure are i n the results section. HGB/HCT (H&H) - STAT STAT 05/22/2020 10:17 Res ults for this LAB AM CDT procedure are i n the results section. GLUCOSE-STAT LAB STAT 05/22/2020 10:17 Results for this AM CDT procedure are i n the results section. POTASSIUM-STAT LAB STAT 05/22/2020 10:17 Resul ts for this AM CDT procedure are i n the results section. SODIUM NA-STAT LAB STAT 05/22/2020 10:17 Resul ts for this AM CDT procedure are i n the results section. BLOOD GAS, ARTERIAL STAT 05/22/2020 10:17 Resu lts for this AM CDT procedure are i n the results section. RRL CRITICAL LABS STAT 05/22/2020 10:17 Result s for this (ABG,NA,K,H&H,GLUCOSE) AM CDT proce dure are in the results section. POCT-ACT Routine 05/22/2020 9:47 Results for this AM CDT procedure are i n the results section. BLOOD GAS, VENOUS Routine 05/22/2020 9:42 Result s for this AM CDT procedure are i n the results section. HGB/HCT (H&H) - STAT STAT 05/22/2020 9:42 Res ults for this LAB AM CDT procedure are i n the results section. GLUCOSE-STAT LAB STAT 05/22/2020 9:42 Results for this AM CDT procedure are i n the results section. POTASSIUM-STAT LAB STAT 05/22/2020 9:42 Resul ts for this AM CDT procedure are i n the results section. SODIUM NA-STAT LAB STAT 05/22/2020 9:42 Resul ts for this AM CDT procedure are i n the results section. BLOOD GAS, ARTERIAL STAT 05/22/2020 9:42 Resu lts for this AM CDT procedure are i n the results section. RRL CRITICAL LABS STAT 05/22/2020 9:42 Result s for this (ABG,NA,K,H&H,GLUCOSE) AM CDT proce dure are in the results section. POCT-ACT Routine 05/22/2020 9:16 Results for this AM CDT procedure are i n the results section. HGB/HCT (H&H) - STAT STAT 05/22/2020 8:11 Res ults for this LAB AM CDT procedure are i n the results section. GLUCOSE-STAT LAB STAT 05/22/2020 8:11 Results for this AM CDT procedure are i n the results section. POTASSIUM-STAT LAB STAT 05/22/2020 8:11 Resul ts for this AM CDT procedure are i n the results section. SODIUM NA-STAT LAB STAT 05/22/2020 8:11 Resul ts for this AM CDT procedure are i n the results section. BLOOD GAS, ARTERIAL STAT 05/22/2020 8:11 Resu lts for this AM CDT procedure are i n the results section. CALCIUM, IONIZED STAT 05/22/2020 8:11 Results for this AM CDT procedure are i n the results section. RRL CRITICAL LABS STAT 05/22/2020 8:11 Result s for this (ABG,NA,K,H&H,GLUCOSE) AM CDT proce dure are in the results section. ENDOSCOPIC 05/22/2020 7:30 Coronary artery HARVEST,VEIN AM CDT disease with angina pectoris, unspecified vessel or lesion type, unspecified whether [place] or transplanted heart (HCC) Case Notes 2.5 HRSOK'D BY LAUREN/SHELL YR/S FROM 05/21 TO 05/22 PER STUART/MAG Special Needs (PATIENT ON DIALYSIS , ICU B ED) BYPASS,AORTO CORONARY ALICE/SVG 05/22/2020 7:30 A M CDT Coronary artery disease with angina pectoris, unspecified vessel or lesion type, unspecified whether [place] or transplanted heart (HCC) Case Notes 2.5 HRSOK'D BY LAUREN/SHELL YR/S FROM 05/21 TO 05/22 PER STUART/MAG Special Needs (PATIENT ON DIALYSIS , ICU B ED) CBC W/PLT COUNT & AUTO Routine 05/22/2020 3:38 AM CDT Results for this DIFFERENTIAL procedure are i n the results section . PHOSPHORUS Routine 05/22/2020 3:38 AM CDT Resu lts for this procedure are i n the results section . MAGNESIUM Routine 05/22/2020 3:38 AM CDT Resu lts for this procedure are i n the results section . BASIC METABOLIC PANEL (7) Routine 05/22/2020 3:38 AM CDT Results for this procedure are i n the results section . CBC W/PLT COUNT & AUTO Routine 05/22/2020 3:38 AM CDT Results for this DIFFERENTIAL procedure are i n the results section . POCT-GLUCOSE METER Routine 05/21/2020 10:28 PM CDT Results for this procedure are i n the results section . ECG 12-LEAD Routine 05/21/2020 5:48 PM CDT Procedure Note - Interface, External Ris In - 05/21/2020 5:48 PM CDT Ventricular Rate 70 BPM Atrial Rate 70 BPM P-R Interval 174 ms QRS Duration 92 ms Q-T Interval 388 ms QTC Calculation(Bazett) 419 ms P Herscher 27 degrees R Herscher 12 degrees T Herscher -5 degrees Normal sinus rhythm Normal ECG When compared with ECG of 12:13, No significant change was fo und ECG 12-LEAD Routine 05/21/2020 5:48 PM CDT Resu lts for this procedure are i n the results section . POCT-GLUCOSE METER Routine 05/21/2020 5:43 PM CDT Results for this procedure are i n the results section . ABORH, MANUAL STAT 05/21/2020 2:32 PM CDT Res ults for this procedure are i n the results section . POCT-GLUCOSE METER Routine 05/21/2020 12:32 PM CDT Results for this procedure are i n the results section . POCT-GLUCOSE METER Routine 05/21/2020 11:32 AM CDT Results for this procedure are i n the results section . TYPE AND SCREEN, AUTOMATED Routine 05/21/2020 11:25 AM CDT Results for this procedure are i n the results section . APTT Routine 05/21/2020 11:25 AM CDT Resu lts for this procedure are i n the results section . PROTHROMBIN TIME/INR Routine 05/21/2020 11:25 AM CDT Results for this procedure are i n the results section . HEMOGLOBIN A1C Routine 05/21/2020 11:25 AM CDT Re sults for this procedure are i n the results section . HEMODIALYSIS INPATIENT Routine 05/21/2020 7:46 AM CDT POCT-GLUCOSE METER Routine 05/21/2020 7:08 AM CDT Results for this procedure are i n the results section . CBC W/PLT COUNT & AUTO Routine 05/21/2020 4:29 AM CDT Results for this DIFFERENTIAL procedure are i n the results section . LIPID PANEL Add-On 05/21/2020 4:29 AM CDT Resu lts for this procedure are i n the results section . PLATELET AGGREGATION: Routine 05/21/2020 4:29 AM CDT Results for this FUNCTION SCREEN procedure ar e in the results section . PHOSPHORUS Routine 05/21/2020 4:29 AM CDT Resu lts for this procedure are i n the results section . MAGNESIUM Routine 05/21/2020 4:29 AM CDT Resu lts for this procedure are i n the results section . BASIC METABOLIC PANEL (7) Routine 05/21/2020 4:29 AM CDT Results for this procedure are i n the results section . CBC W/PLT COUNT & AUTO Routine 05/21/2020 4:29 AM CDT Results for this DIFFERENTIAL procedure are i n the results section . POCT-GLUCOSE METER Routine 05/20/2020 9:37 PM CDT Results for this procedure are i n the results section . POCT-GLUCOSE METER Routine 05/20/2020 4:56 PM CDT Results for this procedure are i n the results section . POCT-GLUCOSE METER Routine 05/20/2020 12:09 PM CDT Results for this procedure are i n the results section . POCT-GLUCOSE METER Routine 05/20/2020 7:19 AM CDT Results for this procedure are i n the results section . CBC W/PLT COUNT & AUTO Routine 05/20/2020 5:06 AM CDT Results for this DIFFERENTIAL procedure are i n the results section . PHOSPHORUS Routine 05/20/2020 5:06 AM CDT Resu lts for this procedure are i n the results section . MAGNESIUM Routine 05/20/2020 5:06 AM CDT Resu lts for this procedure are i n the results section . BASIC METABOLIC PANEL (7) Routine 05/20/2020 5:06 AM CDT Results for this procedure are i n the results section . CBC W/PLT COUNT & AUTO Routine 05/20/2020 5:06 AM CDT Results for this DIFFERENTIAL procedure are i n the results section . TROPONIN I Routine 05/20/2020 5:06 AM CDT Resu lts for this procedure are i n the results section . TROPONIN I Routine 05/20/2020 12:05 AM CDT Resu lts for this procedure are i n the results section . POCT-GLUCOSE METER Routine 05/19/2020 9:32 PM CDT Results for this procedure are i n the results section . POCT-GLUCOSE METER Routine 05/19/2020 7:54 PM CDT Results for this procedure are i n the results section . HEMODIALYSIS INPATIENT Routine 05/19/2020 6:47 PM CDT Results for this procedure are i n the results section . TROPONIN I Routine 05/19/2020 1:27 PM CDT Resu lts for this procedure are i n the results section . PLATELET AGGREGATION: HUMERA 05/19/2020 1:27 PM CDT Results for this FUNCTION SCREEN procedure ar e in the results section . XR CHEST 1 VIEW Routine 05/19/2020 12:38 PM CDT R esults for this PORTABLE/BEDSIDE procedure a re in the results section . POCT-GLUCOSE METER Routine 05/19/2020 12:18 PM CDT Results for this procedure are i n the results section . ECG 12-LEAD Routine 05/19/2020 12:13 PM CDT Procedure Note - Interface, External Ris In - 05/19/2020 12:15 PM CDT Ventricular Rate 72 BPM Atrial Rate 72 BPM P-R Interval 180 ms QRS Duration 92 ms Q-T Interval 412 ms QTC Calculation(Bazett) 451 ms P Herscher 75 degrees R Herscher 17 degrees T Herscher 9 degrees Normal sinus rhythm Normal ECG When compared with ECG of 17:03, No significant change was fo und ECG 12-LEAD Routine 05/19/2020 12:13 PM CDT Resu lts for this procedure are i n the results section . POCT-GLUCOSE METER Routine 05/19/2020 8:55 AM CDT Results for this procedure are i n the results section . CBC W/PLT COUNT & AUTO Routine 05/19/2020 4:20 AM CDT Results for this DIFFERENTIAL procedure are i n the results section . PHOSPHORUS Routine 05/19/2020 4:20 AM CDT Resu lts for this procedure are i n the results section . MAGNESIUM Routine 05/19/2020 4:20 AM CDT Resu lts for this procedure are i n the results section . BASIC METABOLIC PANEL (7) Routine 05/19/2020 4:20 AM CDT Results for this procedure are i n the results section . CBC W/PLT COUNT & AUTO Routine 05/19/2020 4:20 AM CDT Results for this DIFFERENTIAL procedure are i n the results section . POCT-GLUCOSE METER Routine 05/18/2020 10:22 PM CDT Results for this procedure are i n the results section . PLATELET AGGREGATION: Routine 05/18/2020 10:08 PM CDT Results for this FUNCTION SCREEN procedure ar e in the results section . HEMOGLOBIN A1C Routine 05/18/2020 4:49 PM CDT Re sults for this procedure are i n the results section . XR CHEST 1 VIEW Routine 05/18/2020 4:38 PM CDT R esults for this PORTABLE/BEDSIDE procedure a re in the results section . CBC W/PLT COUNT & AUTO Routine 05/18/2020 4:35 PM CDT Results for this DIFFERENTIAL procedure are i n the results section . LIPID PANEL Routine 05/18/2020 4:35 PM CDT Resu lts for this procedure are i n the results section . CBC W/PLT COUNT & AUTO Routine 05/18/2020 4:35 PM CDT Results for this DIFFERENTIAL procedure are i n the results section . PHOSPHORUS Routine 05/18/2020 4:35 PM CDT Resu lts for this procedure are i n the results section . MAGNESIUM Routine 05/18/2020 4:35 PM CDT Resu lts for this procedure are i n the results section . TSH/FREE T4 IF INDICATED Routine 05/18/2020 4:35 PM CDT Results for this procedure are i n the results section . PT/APTT Routine 05/18/2020 4:35 PM CDT Resu lts for this procedure are i n the results section . HEPATIC FUNCTION PANEL Routine 05/18/2020 4:35 PM CDT Results for this procedure are i n the results section . BASIC METABOLIC PANEL (7) Routine 05/18/2020 4:35 PM CDT Results for this procedure are i n the results section . HEPATITIS B SURFACE ANTIGEN Routine 05/18/2020 4:35 PM CDT Results for this procedure are i n the results section . SARS-COV2/RT-PCR ([facility] & Routine 05/18/2020 4:35 PM CDT Results for this REF LABS) procedure are i n the results section . POCT-GLUCOSE METER Routine 05/18/2020 3:43 PM CDT Results for this procedure are i n the results section . after 06/25/2019 Results RHYTHM STRIP - SCAN (06/20/2020 5:37 PM CDT)Only the most recent of3 results within the time period is included. Narrative Performed At This result has an attachment that is no t available. POC-Glucose meter (06/08/2020 7:28 AM CDT)Only the most recent of97 results within the time period is included. POC-Glucose Meter 121 (H)Comment: : TESTED 70 - 110 mg/dL [facility] AT [address], [id number]: Proctologist/Gang Supervisor ID = [id number] for CHARLES WHEELER Specimen Blood Performing Organization Address City/State/Zipcode Phone Number [address] [address] CENTER CBC with platelet count + manual diff (06/08/2020 6:29 AM CDT)Only the most recent of2 resultswithin the time period is included. WBC 9.6 3.5 - 10.5 K/L [facility] RBC 3.62 (L) 4.63 - 6.08 M/L [facility] Hemoglobin 10.8 (L) 13.7 - 17.5 GM/DL [facility] Hematocrit 34.7 (L) 40.1 - 51.0 % [facility] ALTH [facility] MCV 95.9 (H) 79.0 - 92.2 fL [facility] HE ALTH [facility] MCH 29.8 25.7 - 32.2 pg [facility] MCHC 31.1 (L) 32.3 - 36.5 GM/DL [facility] RDW 13.2 11.6 - 14.4 % [facility] ALTH [facility] Platelets 474 (H) 150 - 450 K/CU MM [facility] MPV 10.2 9.4 - 12.4 fL [facility] nRBC 0 0 - 0 /100 WBC [facility] Specimen Blood Performing Organization Address City/State/Zipcode Phone Number [facility] [address] [place] [address] CENTER Manual Differential (06/08/2020 6:29 AM CDT)Only the most recent of2 results within the time period is included. % Neutros 80 % [facility] % Lymphs 12 % [facility] % Monos 3 % [facility] % Eos 4 % [facility] % Atypical Lymphs 1 (H) 0 - 0 % [facility] # Neutros 7.68 (H) 1.78 - 5.38 K/ul [facility] # Lymphs 1.15 (L) 1.32 - 3.57 K/ul [facility] # Monos 0.29 (L) 0.30 - 0.82 K/uL [facility] # Eos 0.38 0.04 - 0.54 K/uL [facility] # Atypical Lymphs 0.10 (H) 0.00 - 0.00 K/uL [facility] Total Counted 100 [facility] WBC Morphology Normal [facility] Giant Platelet Present [facility] Poikilocytes 2+ moderate [facility] Spherocytes 1+ few [facility] Elliptocytes 1+ few [facility] Sylvester Cells 1+ few [facility] Artifact Present [facility] Platelet Conc Adequate [facility] Specimen Blood Narrative Performed At Proctologist ID - jose hlil [facility] User comments: Slide comments: Performing Organization Address City/State/Zipcode Phone Number [facility] [address] [place] [address] CENTER CBC with platelet count + automated diff (06/08/2020 6:29 AM CDT)Only the most recent of9 resultswithin the time period is included. WBC 9.6 3.5 - 10.5 K/L [facility] RBC 3.62 (L) 4.63 - 6.08 M/L [facility] Hemoglobin 10.8 (L) 13.7 - 17.5 GM/DL [facility] Hematocrit 34.7 (L) 40.1 - 51.0 % [facility] MCV 95.9 (H) 79.0 - 92.2 fL [facility] MCH 29.8 25.7 - 32.2 pg [facility] MCHC 31.1 (L) 32.3 - 36.5 GM/DL [facility] RDW 13.2 11.6 - 14.4 % [facility] Platelets 474 (H) 150 - 450 K/CU MM [facility] MPV 10.2 9.4 - 12.4 fL [facility] nRBC 0 0 - 0 /100 WBC [facility] % Neutros 66 % [facility] % Lymphs 20 % [facility] % Monos 9 % [facility] % Eos 4 % [facility] % Baso 1 % [facility] # Neutros 6.28 (H) 1.78 - 5.38 K/L [facility] # Lymphs 1.88 1.32 - 3.57 K/L [facility] # Monos 0.89 (H) 0.30 - 0.82 K/L [facility] # Eos 0.42 0.04 - 0.54 K/L [facility] # Baso 0.05 0.01 - 0.08 K/L [facility] Immature Granulocytes-Relative 0 0 - 1 % [facility] Specimen Blood Performing Organization Address City/State/Zipcode Phone Number [facility] [address] [place] [address] CENTER XR chest 1 view portable / bedside (06/07/2020 4:34 AM CDT)Only the most recent of13 resultswithin the time period is included. Specimen Narrative Performed At FINAL REPORT [employer] CLINICAL INDICATION: Postop Comparison: 06/06/2020 The cardiomediastinal contours are stabl e. The lung volumes remain low. Central pul monary vascular congestion and bilateral parenchymal opacities are similar within variation of acquisition technique. A tiny left apical pneumothorax is uncha nged. Signed: Andrew Aranda MD Report Verified Date/Time:06/07/2020 04:49:46 Procedure Note Interface, External Ris In - 06/07/2020 4:52 AM CDT FINAL REPORT CLINICAL INDICATION: Postop Comparison: 06/06/2020 The cardiomediastinal contours are stabl e. The lung volumes remain low. Central pul monary vascular congestion and bilateral parenchymal opacities are similar within variation of acquisition technique. A tiny left apical pneumothorax is uncha nged. Signed: Andrew Aranda MD Report Verified Date/Time: 06/07/2020 0 4:49:46 Performing Organization Address City/[facility] Phone Number RIS Phosphorus (06/07/2020 3:34 AM CDT)Only the most recent of16 resultswithin the time period is included. Phosphorus 3.8 2.3 - 4.7 mg/dL [facility] Specimen Blood Narrative Performed At Proctologist ID - ALEC [facility] Performing Organization Address [facility] [place] [address] [place] Magnesium (06/07/2020 3:34 AM CDT)Only the most recent of19 resultswithin the time period is included. Magnesium 2.0 1.6 - 2.6 mg/dL [facility] Specimen Blood Narrative Performed At Proctologist ID - RAUDEL [facility] Performing Organization Address [facility] Phone Number [address] [address] [place] Basic Metabolic Panel (06/07/2020 3:34 AM CDT)Only the most recent of26 results within the time period is included. Sodium 137 136 - 145 meq/L [facility] Potassium 4.1 3.5 - 5.1 meq/L [facility] Chloride 101 98 - 107 meq/L [facility] CO2 24 22 - 29 meq/L [facility] BUN 50 (H) 7 - 21 mg/dL [facility] Creatinine 4.33 (H) 0.57 - 1.25 mg/dL [facility] Glucose 104 70 - 105 mg/dL [facility] Calcium 8.1 (L) 8.4 - 10.2 mg/dL [facility] EGFR 14Comment: ESTIMATED GFR IS mL/min/1.73 sq m [facility] NOT ACCURATE CREATININE [facility] CLEARANCE IN PREDICTING GLOMERULAR FILTRATION RATE. ESTIMATED GFR IS NOT APPLICABLE FOR DIALYSIS PATIENTS. Specimen Blood Narrative Performed At Proctologist ID - [facility] Performing Organization Address City/[facility]/Zipcode Phone Number [address] [address] [place] TRANSFUSION SERVICE REPORT - SCAN (06/05/2020 6:21 PM CDT)Only the most recent of4 resultswithin the time period is included. Narrative Performed At This result has an attachment that is no t available. Calcium, Ionized (06/05/2020 2:10 PM CDT)Only the most recent of6 resultswithin the time period is included. Calcium, Ion 1.10 (L) 1.12 - 1.27 mmol/L [facility] pH, Blood 7.45 [facility] Specimen Blood Performing Organization Address City/[facility]/Zipcode Phone Number [address] [address] [place] CBC (Hemogram only) (06/05/2020 6:12 AM CDT)Only the most recent of14 results within the time period is included. WBC 14.6 (H) 3.5 - 10.5 K/L [facility] RBC 3.13 (L) 4.63 - 6.08 M/L [facility] Hemoglobin 9.7 (L) 13.7 - 17.5 GM/DL [facility] Hematocrit 30.1 (L) 40.1 - 51.0 % [facility] MCV 96.2 (H) 79.0 - 92.2 fL [facility] MCH 31.0 25.7 - 32.2 pg [facility] MCHC 32.2 (L) 32.3 - 36.5 GM/DL [facility] RDW 13.4 11.6 - 14.4 % [facility] Platelets 444 150 - 450 K/CU MM [facility] MPV 10.9 9.4 - 12.4 fL [facility] nRBC 0 0 - 0 /100 WBC [facility] Specimen Blood Performing Organization Address City/[facility]/Zipcode Phone Number [facility] [address] [place] [address] CENTER Prepare RBC (06/04/2020 11:54 PM CDT)Only the most recent of2 resultswithin the time period is included. CROSSMATCH COMPATIBLE [place] Unit ABO O Pos [facility] [place] UNIT NUMBER [id number] [facility] [place] Status TX_TIMEINCHART [facility] [place] Blood Bank Product RED BLOOD CELLS [facility] PRODUCT CODE [id number] [facility] Performing Organization Address City/State/Zipcode Phone Number [employer] [place] Blood gas, arterial (06/03/2020 5:00 PM CDT)Only the most recent of16 results within the time period is included. pH, Arterial 7.41 7.35 - 7.45 [facility] pCO2, Arterial 40 35 - 45 mmHg [facility] pO2, Arterial 118 (H) 80 - 90 mmHg [facility] O2 Sat, Arterial 98.3 (H) 96.0 - 97.0 % [facility] HCO3, Arterial 24 21 - 29 mmol/L [facility] Base Excess, Arterial -0.2 -2.0 - 3.0 mmol/L [facility] Patient Temperature 36.8 C [facility] FIO2 40.0 % [facility] Specimen Blood, Arterial Performing Organization Address [facility] Phone Number [address] [address] CENTER Lactic Acid, Arterial (06/03/2020 10:31 AM CDT)Only the most recent of7 results within the time period is included. Lactate, Art 1.2 0.5 - 2.2 mmol/L [facility] Specimen Blood, Arterial Narrative Performed At Proctologist ID - SAYRA Zuniga [facility] Performing Organization Address City/[facility]/Zipcode Phone Number [address] [address] CENTER aPTT (06/03/2020 10:31 AM CDT)Only the most recent of2 resultswithin the time period is included. PTT 29.1 22.5 - 36.0 seconds [facility] Specimen Blood Performing Organization Address City/[facility]/Zipcode Phone Number [address] [address] CENTER Prothrombin time/INR (06/03/2020 10:31 AM CDT)Only the most recent of2 results within the time period is included. Protime 15.7 (H) 11.9 - 14.2 seconds [facility] INR 1.29 <=5.90 [facility] Specimen Blood Narrative Performed At Effective 02/23/2019: PT Reference Range [facility] Change New: 11.9-14.2Previous: 11.7-14.7 RECOMMENDED COUMADIN/WARFARIN INR THERAPY RANGES STANDARD DOSE: 2.0-3.0Includes: PROPHYLAXIS for venous thrombosis, systemic embolization; TREATMENT for venous thrombosis and/or pulmonary embolus. HIGH RISK: Target INR is 2.5-3.5 for patients wiht mechanical heart valves. Performing Organization Address [facility] Phone Number [address] [phone] CENTER Fibrinogen (06/03/2020 10:31 AM CDT)Only the most recent of2 resultswithin the time period is included. Fibrinogen 524 (H) 225 - 434 mg/dl [facility] Specimen Blood Performing Organization Address [facility] Phone Number [address] [address] CENTER Transfuse Leuko-Red RBC (06/03/2020 8:56 AM CDT)Electrocardiogram, 12-lead (06/03/2020 5:38 AM CDT)Only the most recent of6 resultswithin the time period is included. Specimen Narrative Performed At Ventricular Rate 74 BPM GE MUSE Atrial Rate 74 BPM P-R Interval 166 ms QRS Duration 94 ms Q-T Interval 420 ms QTC Calculation(Bazett) 466 ms P Herscher 28 degrees R Herscher 38 degrees T Herscher 27 degrees Normal sinus rhythm Nonspecific ST and T wave abnormality Prolonged QT Abnormal ECG No previous ECGs available Confirmed by MD Arvizu Roberto ([id number]) on 2019 3:58:44 PM Procedure Note Interface, External Ris In - 06/03/2020 3:58 PM CDT Ventricular Rate 74 BPM Atrial Rate 74 BPM P-R Interval 166 ms QRS Duration 94 ms Q-T Interval 420 ms QTC Calculation(Bazett) 466 ms P Herscher 28 degrees R Herscher 38 degrees T Herscher 27 degrees Normal sinus rhythm Nonspecific ST and T wave abnormality Prolonged QT Abnormal ECG No previous ECGs available Confirmed by MD Arvizu Roberto ([id number]) on 06/03/2020 3:58:44 PM Performing Organization Address City/[facility]/Zipcode Phone Number GE MUSE Type and screen, automated (06/03/2020 4:34 AM CDT)Only the most recent of2 resultswithin the time period is included. ABO/RH AUTOMATED (BEAKER) O POSITIVE [facility] Ab Scrn NEGATIVE [facility] Specimen Blood Performing Organization Address City/[facility]/Zipcode Phone Number [facility] [address] [place] [address] HEMODIALYSIS INPATIENT (06/02/2020 10:41 PM CDT) Narrative Performed At Danica Hudson RN 06/02/2020 11:1 4 PM Completed 3 hours of HD via left upper a rm AVF with net fluid removed of 1.8 liters. UF goal was 3 lit ers. UF had to be turned off due to complaint of chest discomfort , which was relieved by Metoprolol 50 mg po (scheduled med). Radha tubbs reported relief from chest discomfort and denied any other di scomfort through the remainder of treatment.Last vital si gns at end of treatment were: Temp 97.8 F, BP= 118/77, HR 79/min RR=17/min. Report given to Primary dry curer Results Component Value Date WBC 11.5 (H) 06/02/2020 HGB 9.0 (L) 06/02/2020 HCT 28.2 (L) 06/02/2020 MCV 95.6 (H) 06/02/2020 PLT 364 06/02/2020 Lab Results Component Value Date GLUCOSE 131 (H) 06/02/2020 CALCIUM 8.1 (L) 06/02/2020 NA 133 (L) 06/02/2020 K 4.0 06/02/2020 CO2 26 06/02/2020 CL 96 (L) 06/02/2020 BUN 60 (H) 06/02/2020 CREATININE 5.60 (H) 06/02/2020 Results for LONNY DAMICO ( 458) as of 06/02/2020 22:45 Ref. Range 05/18/2020 16:35 HBsAg Screen Latest Ref Range: Nonreacti veNonreactive SARS-CoV2/RT-PCR (Asymptomatic ONLY) (06/02/2020 6:03 PM CDT)Only the most recent of3 resultswithin the time period is included. SARS-COV2/RT-PCR Negative Not Detected, Negative, [facility] See external report for MEDICAL CENTER linked test SARS-COV-2 PERFORMING LAB BSC [facility] Specimen Other Narrative Performed At Negative results do not preclude SARS-CoV-2 [facility] infection and should not be used as the sole basis for patient management decisions. Negative results must be combined with clinical observations, patient history, and epidemiological information. A false negative result may occur if a specimen is improperly collected, transported or handled. The limit of detection for this assay is 250 copies/mL. This SARS CoV-2 test is a rapid, real-time RT-PCR test intended for the qualitative detection of nucleic acid from SARS-CoV-2 in a nasopharyngeal swab specimen collected from individuals suspected of COVID-19 by their healthcare provider. This test has not been Food and Drug Administration (FDA) cleared or approved and has been authorized by FDA under an Emergency Use Authorization (EUA). This EUA will be effective until the declaration that circumstances exist justifying the authorization of the emergency use of in vitro diagnostic tests for detection and/or diagnosis of COVID-19 is terminated under Section 564(b)(2) of the Act or the EUA is revoked under Section 564(g) of the Act. Fact Sheet for Healthcare Providers: https://www.[employer]/Documents/Xpert%20Xpre ss%20SARS%20CoV-2/Fact%20Sheets/3023802%20SAR S-COV-2%20HEALTHCARE%20PROVIDERS%20FACT%20SHEE T.pdf Fact Sheet for Healthcare Patients: https://www.[employer]/Documents/Xpert%20Xpre ss%20SARS%20CoV-2/Fact%20Sheets/3023801%20SAR S-COV-2%20PATIENT%20FACT%20SHEET.pdf Performing Laboratory: [facility] [address] [place] [address] Performing Organization Address City/State/Zipcode Phone Number [facility] [address] [place] [address] chest without IV contrast (06/02/2020 1:24 PM CDT) Specimen Narrative Performed At FINAL REPORT [employer] CT Chest without contrast History: Dyspnea on exertion Comparison: none Technique: serial axial imaging was perf ormed without intravenous contrast as per departmental protocol. Multiplanar images are reconstructed and reviewed when indicate d. This CT examination is performed using o ne or more of the following dose reduction techniques: Automated exposure control, adjustment o f the mA and /or kV according to patient size, and/or use of iterative reconstruction technique. Findings: No mediastinal lymphadenopathy. No definite hilar enlargement. Normal size heart. Moderate pericardial effusion. No thoracic aortic aneurysm.Normal caliber of main pulmonary trunk. Patent central airways.Small to mode rate size bilateral pleural effusions. No pneumothorax is appreciate d.Mild bilateral lower lobe compressive atelectasis. 8 mm right midd le lobe pulmonary nodule is noted on axial image 30. The lungs are o therwise clear. No significant findings in the partially imaged abdomen. No aggressive osseous lesion. Median ras rnotomy changes. Appearance of the thoracic spine is suggestive of u nderlying ankylosing spondylitis. Impression: 1. Small to moderate sized bilateral ple ural effusions. 2. Moderate pericardial effusion. 3. 8 mm right middle lobe pulmonary nodu le. Follow-up recommendations are as follows: Comparison with any available outside spital cross-sectional imaging is recommended. If none are avai lable and the patient is at high risk for bronchogenic carcinoma, a follow-up chest CT (low-dose technique and thin axial reconstructions ) should be obtained in 6 - 12 months, then subsequent CT should be obtained at 18 - 24 months, to document stability. If the patient is at low risk of bronchogenic carcinoma, an initial follow-up chest CT should be obtained in 6 - 12 months, then subsequent CT considered at 18 - 24 months, to document stability. Signed: Damian Soria MD Report Verified Date/Time:06/02/2020 16:02:43 Reading Location: [address] Reading Room Procedure Note Interface, External Ris In - 06/02/2020 4:05 PM CDT FINAL REPORT CT Chest without contrast History: Dyspnea on exertion Comparison: none Technique: serial axial imaging was perf ormed without intravenous contrast as per departmental protocol. Multiplanar images are reconstructed and reviewed when indicate d. This CT examination is performed using o ne or more of the following dose reduction techniques: Automated exposure control, adjustment o f the mA and /or kV according to patient size, and/or use of iterative reconstruction technique. Findings: No mediastinal lymphadenopathy. No definite hilar enlargement. Normal size heart. Moderate pericardial effusion. No thoracic aortic aneurysm. Normal katja iber of main pulmonary trunk. Patent central airways. Small to modera te size bilateral pleural effusions. No pneumothorax is appreciate d. Mild bilateral lower lobe compressive atelectasis. 8 mm right midd le lobe pulmonary nodule is noted on axial image 30. The lungs are o therwise clear. No significant findings in the partially imaged abdomen. No aggressive osseous lesion. Median ras rnotomy changes. Appearance of the thoracic spine is suggestive of u nderlying ankylosing spondylitis. Impression: 1. Small to moderate sized bilateral ple ural effusions. 2. Moderate pericardial effusion. 3. 8 mm right middle lobe pulmonary nodu le. Follow-up recommendations are as follows: Comparison with any available outside spital cross-sectional imaging is recommended. If none are avai lable and the patient is at high risk for bronchogenic carcinoma, a follow-up chest CT (low-dose technique and thin axial reconstructions ) should be obtained in 6 - 12 months, then subsequent CT should be obtained at 18 - 24 months, to document stability. If the patient is at low risk of bronchogenic carcinoma, an initial follow-up chest CT should be obtained in 6 - 12 months, then subsequent CT considered at 18 - 24 months, to document stability. Signed: Damian Soria MD Report Verified Date/Time: 06/02/2020 1 6:02:43 Reading Location: [facility] [address] [place] [address] Reading Room Performing Organization Address City/State/Zipcode Phone Number [employer] 2D Echocardiogram (06/01/2020 8:17 PM CDT) Ejection Fraction SLE ECHO HEAR TLAB MKCKESSON CPACS Specimen Narrative Performed At Transthoracic Echocardiography Report (T TE) [facility] ECHO HEARTLAB [facility] Demographics Patient Name Bobbi DAMICO of Study06/01/2020 Jeannie [id number] Gender Benjamin arias Visit Number [id number] Race Mirna crowell [id number] marko [id number] Number Date of Birth1955 Referring PhysicianSubhash Richardson MD Age65 year(s) SonographerRishi Mendoza ather Interpreting Nando Rojas, Physician MD Fellow Cesar Bryson MD Procedure Type of Study TTE procedure:LIMITED 2D ECHOCARDIOGRAM (STAT) Indications:Pericardial effusion. Clinical History HGB 10.7 HCT 33.5 % s/p CABFG, ESRD, HTN, EDITA, DM II, COPD, CAD Height: 73 inches Weight: 141.52 kg (312 lbs) BSA: 2.6 m^2 BMI: 41.16 kg/m^2 HR: 82 bpm BP: 102/65 mmHg - Results reported to: Dr Loyd and Dr. Watkins Summary Circumferential pericardial effusion noted; largest posteriorly and posterolaterally at 24mm. The following present: respirophasic variation in mitral inflow to suggest increased intrapericardial effusion . Previous Study Compared to prior study on 05/29/2020: Increase in size of pericardial effusion, now large without overt evidence of increased intra-pericardial pressures. Signature Findings Rhythm/BPRegular sinus rhythm during the exam. Left Ventricle The left ventricle is chamber size (by PSLAX di mension) is normal (male - LVIDd 4.2-5.8 cm) . No rmal LV wall thickness. All of the LV se gments co ntract normally . Estimated LVEF by qual itative as sessment is normal (>60%) . Left AtriumLA is adequately visualized. LA size is normal . Right VentricleThe right ventricle is not well visualized but ap pears small on subcostal views. Right Atrium The right atrium is not well visualized. No ev idence of diastolic collapse in subcosta l view. Atrial SeptumThe interatrial septum is adequately visualized. No rmal interatrial septum by available vie ws. Aortic Valve Normal AoV structure and function by limited views an d Doppler. Mitral Valve Normal MV structure. Borderline mitral valve inflo w re spiratory variation. Tricuspid ValveTV structure is normal. No evidence of tricuspid regurgitation. Un able to estimate peak systolic PA pressu re; in adequate TR velocity signal. AortaAortic root size (SInus of Valsalva diameter) i s no rmal . Pr oximal ascending aorta size is not visua lized . PericardiumCircumferentia l pericardial effusion noyed; largest po steriorly and posterolaterally at 24mm. Th e following present: respirophasic varia tion in mi tral inflow to suggest increased intrape ricardial ef fusion . IVC/SVC/PA/PV/PleuralThe inferior vena cava size is increased with re spiratory collapse. Th e estimated RA pressure by IVC dynamics 11-15mmHg . Chambers/Structures Left Atrium LA Dimension: 4.24 cm Left Ventricle LVIDd: 5.18 cm LVIDs: 3.13 cm LV Septum Diastolic: 0.96 cm LV Septum Systolic: 1.62 cm LV FS: 39.6 % LV PW Diastolic: 0.94 cm LV PW Systolic: 1.99 cm LVOT Diameter: 2.07 cm Aorta Ao Root S of [place].: 3.25 cm Doppler/Quantitative Measurements Mitral Valve MV Haroon. Peak: Tissue Doppler E' Septal Velocity: 0.84 m/s LVOT LVOT Diameter: 2.07 cm LVOT Area: 3.37 cm^2 Procedure Note Interface, External Ris In - 06/02/2020 3:37 PM CDT Transthoracic Echocardiography Report (TTE) Demographics Patient Name LONNY DAMICO Date of Study 06/01/2020 L Gender Male Visit Number [id number] Race Unknown [place] [address] Number Date [facility] 1955 [facility] Subhash Richardson MD Age 65 year(s) Sonliz López Interpr eting Neda Valdivia an MD Fellow Cesar Bryson MD Procedure Type of Study TTE procedure:LIMITED 2D ECHO CARDIOGRAM (STAT) Indications:Pericardial effusion. Clinical History HGB 10.7 HCT 33.5 % s/p CABFG, ESRD, HTN, EDITA, DM II, COPD, CAD Height: 73 inches Weight: 141.52 kg (312 lbs) BSA: 2.6 m^2 BMI: 41.16 kg/m^2 HR: 82 bpm BP: 102/65 mmHg - Results reported to: Dr Loyd and Nita Watkins Summary Circumferential pericardial effusion no jasper; largest posteriorly and posterolaterally at 24mm. The following present: respirophasic variation in mitral inflow to suggest increased i ntrapericardial effusion . Previous Study Compared to prior study on 05/29/2020: In crease in size of pericardial effusion, now large without overt evide nce of increased intra-pericardial pressures. Signature Findings Rhythm/BP Regular sinus rh ythm during the exam. Left Ventricle The left ventric le is chamber size (by PSLAX dimension) is no rmal (male - LVIDd 4.2-5.8cm) . Normal LV wall t hickness. All of the LV segments contract normall y . Estimated LVEF by qualitative assessment is no rmal (>60%) . Left Atrium LA is adequately visualized. LA size is facundo l . Right Ventricle The right ventri tahmina is not well visualized but appears small on subcostal views. Right Atrium The right atrium is not well visualized. No evidence of oliveira tolic collapse in subcostal view. Atrial Septum The interatrial septum is adequately visualized. Normal interatri al septum by available views. Aortic Valve Normal AoV struc ture and function by limited views and Doppler. Mitral Valve Normal MV struct ure. Borderline mitral valve inflow respiratory vari ation. Tricuspid Valve TV structure is normal. No evidence of t ricuspid regurgitation. Unable to estima te peak systolic PA pressure; inadequate TR ve locity signal. Aorta Aortic root size (SInus of Valsalva diameter) is normal . Proximal ascendi ng aorta size is not visualized . Pericardium Circumferential pericardial effusion noyed; largest posteriorly and posterolaterally at 24mm. The following pr esent: respirophasic variation in mitral inflow to suggest increased intrapericardial effusion . IVC/SVC/PA/PV/Pleural The inferior jake a cava size is increased with respiratory juan apse. The estimated RA pressure by IVC dynamics 11-15mmHg . Chambers/Structures Left Atrium LA Dimension: 4.24 cm Left Ventricle LVIDd: 5.18 cm LVIDs: 3.13 cm LV Septum Diastolic: 0.96 cm LV Septum Systolic: 1.62 cm LV FS: 39.6 % LV PW Diastolic: 0.94 cm LV PW Systolic: 1.99 cm LVOT Diameter: 2.07 cm Aorta Ao Root S of Shiloh.: 3.25 cm Doppler/Quantitative Measurements Mitral Valve MV Haroon. Peak: Tissue Doppler E' Septal Velocity: 0.84 m/s LVOT LVOT Diameter: 2.07 cm LVOT Area: 3.37 cm^2 Performing Organization Address City/State/Zipcode Phone Number [facility] 2D Echo W/Doppler(CW/PW/Color) (05/29/2020 1:10 PM CDT) Ejection Fraction [facility] ECHO HEAR TLAB [facility] Specimen Narrative Performed At Transthoracic Echocardiography Report (T TE) [facility] Patient Name Bobbi DAMICO of Study 05/29/2020 L [id number] GenderMal e Visit Number [id number] RaceUnkn own [id number] m Number [id number] Number Date of Birth[birth year]/ Referring Physician Vignesh Watkins MD Age65 year(s) 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 Clinical History COPD;DM;ESRD;HLD;HTN;BYPASS/CA 05/22/20 Contrast Medium: Definity. Height: 73 inches Weight: 143.34 kg (316 lbs) BSA: 2.61 m^2 BMI: 41.69 kg/m^2 HR: 80 bpm BP: 123/72 mmHg Summary Technically difficult study. LV endocardium is partially visualized with IV ultrasound enhancing agent. The LV apex is incompletely visualized due to foreshortening. 1. The left ventricle is chamber size (by vol index) is normal (male - LVED vol - 34-74ml/m2). Mild concentric LV hypertrophy. All of the LV segments contract normally . Estimated LVEF by qualitative assessment is normal (55-60%) . Diastolic function is indeterminate. 2. RV is not well seen. In the limited views, the RV appears to be normal in size. Global RV systolic function is depressed . TAPSE 1.2 cm. 3. Based on the PLAX diameter, the LA is dilated. In the limited views the RA appears to be dilated. 4. TV structure is normal. Htyi-vu-nwownzas tricuspid regurgitation. Peak systolic pressure may be underestimated; partial TR signal. Estimated peak systolic pressure is at least 35-40 mmHg. The estimated RA pressure by IVC dynamics 11-15 mm Hg. 5. A moderate posterior, posterolateral pericardial effusion is present . Greatest pericardial end-diastolic size is approx. 1.6 cm. No echocardiographic evidence of increased intrapericardial pressures. Previous Study No prior exam available for comparison. Signature Findings Left Ventricle Technically difficult study. LV endocardium is pa rtially visualized with IV ultrasound en hancing ag ent. The LV apex is incompletely visuali zed due to foreshortening. Th e left ventricle is chamber size (by vol index) is normal (male - LVED vol - 34-74ml/m2). M ild co ncentric LV hypertrophy. All of the LV s egments co ntract normally . Estimated LVEF by qual itative as sessment is normal (55-60%) . Diastolic function is indeterminate. Left AtriumImaging is suboptimal for accurate measurement of th e LA volumes. Based on the PLAX diameter , the LA is dilated. Right VentricleRV is not well seen. In the limited views, the RV ap pears to be normal in size. Global RV sy stolic fu nction is depressed . TAPSE 1.2 cm. Right Atrium RA is partially visualized. In the limited views th e RA appears to be dilated. Aortic Valve Trileaflet aortic valve. Mild AoV cusp thickening. No evidence of aortic stenosis. No evidence of aortic regurgitation. Mitral Valve Mild MV leaflet thickening. Tr rahul mitral regurgitation. Tricuspid ValveTV structure is normal. Rjyw-as-rpldbqgt tricuspid re gurgitation. Peak systolic pressure may be un derestimated; partial TR signal. Estimat ed peak sy stolic pressure is at least 35-40 mmHg. Pulmonic Valve Normal PV structure and function by limited views an d Doppler. AortaAortic root size (SInus of Valsalva diameter) i s no rmal . Pr oximal ascending aorta size is normal . PericardiumA moderate posterior, posterolateral pericardial ef fusion is present . Greatest pericardial en d-diastolic size is approx. 1.6 cm. No 2 D ev idence of RV diastolic collapse. Doppler ev aluation for respiratory variation is un reliable. HR 80, BP123/72. IVC/SVC/PA/PV/PleuralThe estimated RA pressure by IVC dynamics 11-15 mm Hg . Chambers/Structures Left Atrium LA Dimension: 5.14 cm LA Area: 25.74 cm^2 Left Ventricle LVIDd: 5.32 cm LV Septum Diastolic: 1.29 cm LV PW Diastolic: 1.33 cm LVEDV Castrejon's:112.81 ml LVESV Castrejon's:47.19 ml LVEF Castrejon's: 58.2 %LVEDV I: 43 ml/m^2 LVESVI: 18 ml/m^2 LVOT Diameter: 2.2 cm Right Ventricle RV Systolic Pressure : 40 mmHg Aorta Ao Root S of Shiloh.: 3.57 cm Ascending Aorta: 3.4 cm Doppler/Quantitative Measurements Mitral Valve MV Peak E-Wave: 0.87 m/s MV Peak A-Wave: 0.65 m/s P1/2t: 60.4 msec E/A Ratio: 1.34 Peak Gradient: 3.03 mmHg Deceleration Time: 208.4 msec MV Area (PHT): 3.64 cm^2 MV Haroon. Peak: Tissue Doppler E' Septal Velocity: 0.9 m/sE/E': 9 E' Lateral Velocity: 0.9 m/s LVOT Peak Velocity: 1.15 m/s Peak Gradient: 5.32 mmHg Mean Velocity: 0.66 m/s Mean Gradient: 2.25 mmHg LVOT Diameter: 2.2 cm LVOT VTI: 16.46 cm LVOT Area: 3.8 cm^2 LVOT SV:62.54 ml LVOT CO: 5 l/minLVOT CI: 1.92 l/min/m^2 Tricuspid Valve Estimated RAP: 15 mmHg TR Velocity: 2.5 m/s TR Gradient: 25 mmHg Pulmonic Valve Estimated PASP: 40 m mHg Procedure Note Interface, External Ris In - 05/29/2020 3:54 PM CDT Transthoracic Echocardiography Report (TTE) Demographics Patient Name LONNY DAMICO Date of Study 05/29/2020 L Gender Male Visit Number [id number] Race Unknown [place] [id number] Number Date of 1955 Referri Physician Vignesh Watkins MD Age 65 year(s) 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 Clinical History COPD;DM;ESRD;HLD;HTN;BYPASS/CA 05/22/20 Contrast Medium: Definity. Height: 73 inches Weight: 143.34 kg (316 lbs) BSA: 2.61 m^2 BMI: 41.69 kg/m^2 HR: 80 bpm BP: 123/72 mmHg Summary Technically difficult study. LV endocar dium is partially visualized with IV ultrasound enhancing agent. The LV a pex is incompletely visualized due to foreshortening. 1. The left ventricle is chamber size ( by vol index) is normal (male - LVED vol - 34-74ml/m2). Mild concentric LV hypertrophy. All of the LV segments contract normally . Estimated LVEF by qualitative assessment is normal (55-60%) . Diastolic function is indeterminate. 2. RV is not well seen. In the limited views, the RV appears to be normal in size. Global RV systolic function is depressed . TAPSE 1.2 cm. 3. Based on the PLAX diameter, the LA i s dilated. In the limited views the RA appears to be dilated. 4. TV structure is normal. Kcsi-wm-mlqw rate tricuspid regurgitation. Peak systolic pressure may be underestimated ; partial TR signal. Estimated peak systolic pressure is at least 35-40 mmH g. The estimated RA pressure by IVC dynamics 11-15 mm Hg. 5. A moderate posterior, posterolateral pericardial effusion is present . Greatest pericardial end-diastolic size is approx. 1.6 cm. No echocardiographic evidence of increased intrapericardial pressures. Previous Study No prior exam available for comparison. Signature Findings Left Ventricle Technically diff icult study. LV endocardium is partially visual ized with IV ultrasound enhancing agent. The LV ap ex is incompletely visualized due to foreshortenin g. The left ventric le is chamber size (by vol index) is normal (male - LVED vol - 34-74ml/m2). Mild concentric LV hy pertrophy. All of the LV segments contract normall y . Estimated LVEF by qualitative assessment is no rmal (55-60%) . Diastolic function is indeterminate . Left Atrium Imaging is subop timal for accurate measurement of the LA volumes. Based on the PLAX diameter, the LA is dilated. Right Ventricle RV is not well s een. In the limited views, the RV appears to be no rmal in size. Global RV systolic function is depr essed . TAPSE 1.2 cm. Right Atrium RA is partially visualized. In the limited views the RA appears t o be dilated. Aortic Valve Trileaflet aorti c valve. Mild AoV cusp thickening. No evidence of a ortic stenosis. No evidence of a ortic regurgitation. Mitral Valve Mild MV leaflet thickening. Trace mitral reg urgitation. Tricuspid Valve TV structure is normal. Sugh-is-pkubrgep tricuspid regurgitation. P eak systolic pressure may be underestimated; partial TR signal. Estimated peak systolic pressur e is at least 35-40 mmHg. Pulmonic Valve Normal PV struct ure and function by limited views and Doppler. Aorta Aortic root size (SInus of Valsalva diameter) is normal . Proximal ascendi ng aorta size is normal . Pericardium A moderate poste rior, posterolateral pericardial effusion is pres ent . Greatest pericardial end-diastolic si ze is approx. 1.6 cm. No 2D evidence of RV d iastolic collapse. Doppler evaluation for r espiratory variation is unreliable. HR 80, BP123/72. IVC/SVC/PA/PV/Pleural The estimated RA pressure by IVC dynamics 11-15 mm Hg. Chambers/Structures Left Atrium LA Dimension: 5.14 cm LA Area: 25.74 cm^2 Left Ventricle LVIDd: 5.32 cm LV Septum Diastolic: 1.29 cm LV PW Diastolic: 1.33 cm LVEDV Castrejon's:112.81 ml LVESV Castrejon's:47.19 ml LVEF Castrejon's: 58.2 % LVEDVI: 43 ml/m^2 LVESVI: 18 ml/m^2 LVOT Diameter: 2.2 cm Right Ventricle RV Systolic Pressure: 40 mmHg Aorta Ao Root S of Shiloh.: 3.57 cm Ascending Aorta: 3.4 cm Doppler/Quantitative Measurements Mitral Valve MV Peak E-Wave: 0.87 m/s MV Peak A-Wave: 0.65 m/s P1/2t: 60.4 msec E/ A Ratio: 1.34 Pe ak Gradient: 3.03 mmHg De celeration Time: 208.4 msec MV Area (PHT): 3.64 cm^2 MV Haroon. Peak: Tissue Doppler E' Septal Velocity: 0.9 m/s E/ E': 9 E' Lateral Velocity: 0.9 m/s LVOT Peak Velocity: 1.15 m/s Pea k Gradient: 5.32 mmHg Mean Velocity: 0.66 m/s Yina n Gradient: 2.25 mmHg LVOT Diameter: 2.2 cm LVO T VTI: 16.46 cm LVOT Area: 3.8 cm^2 LVO T SV:62.54 ml LVOT CO: 5 l/min LVO T CI: 1.92 l/min/m^2 Tricuspid Valve Estimated RAP: 15 mmHg TR Velocity: 2.5 m/s TR Gradient: 25 mmHg Pulmonic Valve Estimated PASP: 40 mmHg Performing Organization Address City/[facility]/Zipcode Phone Number [facility] E[facility] HEARTLAB MKCKESSON CPACS B-type Natriuretic Factor (BNP) (05/29/2020 5:48 AM CDT) BNP 491 (H) 0 - 100 pg/mL [facility] Specimen Blood Narrative Performed At Proctologist ID - DB [facility] Performing Organization Address City/[facility] Phone Number [facility] [address] [place] [address] CENTER HEMODIALYSIS INPATIENT (05/26/2020 11:45 AM CDT) Narrative Performed At Joseluis Ivan RN 05/26/2020 12: 08 PM Tolerated and completed 3 hours and 30mi nutes. No distress noted, asymptomatic. Denies any discomfort and pain. UF fluid removed 3 liters. Secured access with pressure dressing ga uze and tape. No further bleeding nted. Report given to Rae ALCALA. Latest lab result: Lab Results Component Value Date WBC 7.6 05/26/2020 HGB 8.2 (L) 05/26/2020 HCT 26.0 (L) 05/26/2020 MCV 99.2 (H) 05/26/2020 PLT 160 05/26/2020 Lab Results Component Value Date GLUCOSE 228 (H) 05/26/2020 CALCIUM 8.3 (L) 05/26/2020 NA 138 05/26/2020 K 4.0 05/26/2020 CO2 26 05/26/2020 CL 103 05/26/2020 BUN 40 (H) 05/26/2020 CREATININE 4.45 (H) 05/26/2020 Joseluis GARCIA, RN II 7S6- Adult Dialysis [phone] HEMODIALYSIS INPATIENT (05/25/2020 6:06 PM CDT) Narrative Performed At Roque, Angel Martin RN 05/25/2020 6:07 PM HD x 3.5 hours. UF net 3L. Treatment nikita erated well. Pt awake and alert, not in distress. Lab Results Component Value Date WBC 11.3 (H) 05/25/2020 HGB 8.4 (L) 05/25/2020 HCT 26.3 (L) 05/25/2020 MCV 98.9 (H) 05/25/2020 PLT 123 (L) 05/25/2020 Lab Results Component Value Date GLUCOSE 173 (H) 05/25/2020 CALCIUM 7.9 (L) 05/25/2020 NA 138 05/25/2020 K 4.2 05/25/2020 CO2 23 05/25/2020 CL 103 05/25/2020 BUN 47 (H) 05/25/2020 CREATININE 5.87 (H) 05/25/2020 Lab Results Component Value Date HEPBSAG Nonreactive 05/18/2020 Vitals: 05/25/20 1800 BP: 146/72 Pulse: 97 Resp: 23 Temp: 98.1 F (36.7 C) SpO2: 100% Oxygen saturation, measured (05/23/2020 3:27 AM CDT)Only the most recent of4 resultswithin the time period is included. O2 Saturation (Measured) 79.8 % [facility] Specimen Blood Performing Organization Address City/State/Zipcode Phone Number [facility] [address] [place] [address] CENTER Glucose-Stat Lab (05/23/2020 12:28 AM CDT)Only the most recent of5 resultswithin the time period is included. Glucose 198 (H) 70 - 110 mg/dL [facility] Specimen Blood, Arterial Performing Organization Address [facility]/Zipcode Phone Number [facility] [address] [place] [address] CENTER Potassium-STAT (05/22/2020 7:15 PM CDT)Only the most recent of2 resultswithin the time period is included. Potassium 3.5 3.5 - 5.1 meq/L [facility] Specimen Blood Narrative Performed At Proctologist ID - BS [facility]ENTER Performing Organization Address [facility]/Zipcode Phone Number [address] [address] CENTER Glucose-STAT (05/22/2020 7:15 PM CDT)Only the most recent of2 resultswithin the time period is included. Glucose 295 (H) 70 - 105 mg/dL [facility] Specimen Blood Narrative Performed At Proctologist ID - BS [facility] Performing Organization Address City/[facility]/Zipcode Phone Number [address] [address] CENTER PT/aPTT (05/22/2020 1:09 PM CDT)Only the most recent of2 resultswithin the time period is included. Protime 17.5 (H) 11.9 - 14.2 seconds [facility] INR 1.47 <=5.90 [facility] PTT 30.5 22.5 - 36.0 seconds [facility] Specimen Blood Narrative Performed At Effective 02/23/2019: PT Reference Range [facility] Change New: 11.9-14.2Previous: 11.7-14.7 RECOMMENDED COUMADIN/WARFARIN INR THERAPY RANGES STANDARD DOSE: 2.0-3.0Includes: PROPHYLAXIS for venous thrombosis, systemic embolization; TREATMENT for venous thrombosis and/or pulmonary embolus. HIGH RISK: Target INR is 2.5-3.5 for patients wiht mechanical heart valves. Performing Organization Address [facility] Phone Number [address] [address] [place] D-dimer (05/22/2020 1:09 PM CDT) D-Dimer, Quant 0.81 (H) <0.50 MG/L FEU [facility] Specimen Blood Narrative Performed At Intended Use: The D-Dimer Assay can be used [facility] to aid in the diagnosis of Deep Vein Thrombosis (DVT) and Pulmonary Embolism Disease (PED). In patients with low pre-test probability, various studies concerning STA Liatest D-dimer test have reported that with a cutoff value of 0.50 MG/L FEU, the Negative Predictive Value (NPV) regarding the exclusion of thrombosis is within 95-100% range. Performing Organization Address [facility] Phone Number [address] [address] [place] Comprehensive metabolic panel (05/22/2020 1:09 PM CDT) Protein, Total 5.0 (L) 6.0 - 8.3 gm/dL [facility] ER Albumin 2.7 (L) 3.5 - 5.0 g/dL [facility] ER Alkaline Phosphatase 75 40 - 150 U/L [facility] ER Total Bilirubin 0.6 0.2 - 1.2 mg/dL [facility] ER Sodium 141 136 - 145 meq/L [facility] ER Potassium 3.5 3.5 - 5.1 meq/L [facility] ER Chloride 108 (H) 98 - 107 meq/L [facility] ER CO2 19 (L) 22 - 29 meq/L [facility] BUN 29 (H) 7 - 21 mg/dL [facility] ER Creatinine 5.13 (H) 0.57 - 1.25 mg/dL [facility] ER Glucose 229 (H) 70 - 105 mg/dL [facility] ER Calcium 7.3 (L) 8.4 - 10.2 mg/dL [facility] H [facility] ER AST 38 (H) 5 - 34 U/L [facility] ER ALT 36 6 - 55 U/L [facility] ER EGFR 11Comment: ESTIMATED GFR mL/min/1.[address] [facility] IS NOT ACCURATE [facility] CREATININE CLEARANCE IN PREDICTING GLOMERULAR FILTRATION RATE. ESTIMATED GFR IS NOT APPLICABLE FOR DIALYSIS PATIENTS. Specimen Blood Narrative Performed At Proctologist ID - NTP [facility] Performing Organization Address City/[facility] Phone Number [address] [address] [place] POC ACTIVATED CLOTTING TIME (05/22/2020 11:31 AM CDT)Only the most recent of5 resultswithin the time period is included. Activated Clotting Time 114Comment: : 74-137 sec [facility] seconds, Baseline: TESTED [facility] AT [address], [address]: Proctologist/Gang Supervisor ID = [id number] for MARIJA SARGENT Specimen Blood Performing Organization Address [facility] Phone Number [address] [address] [place] Potassium-Stat Lab (05/22/2020 11:29 AM CDT)Only the most recent of4 results within the time period is included. Potassium 4.1 3.6 - 5.5 meq/L [facility] Specimen Blood, Arterial Performing Organization Address City/State/[facility] Phone Number [address] [address] [place] Sodium Na-Stat Lab (05/22/2020 11:29 AM CDT)Only the most recent of4 results within the time period is included. Sodium 136 136 - 145 meq/L [facility] Specimen Blood, Arterial Performing Organization Address City/[facility] Phone Number [address] [address] [place] HGB/HCT (H&H)-Stat Lab (05/22/2020 11:29 AM CDT)Only the most recent of4 resultswithin the time period is included. Hemoglobin 10.9 (L) 13.0 - 16.8 g/dL [facility] Hematocrit 32.0 (L) 40.0 - 50.0 % [facility] Specimen Blood, Arterial Performing Organization Address [facility] Phone Number [address] [address] [place] Blood gas, venous (05/22/2020 9:42 AM CDT) pH, Jake 7.41 7.32 - 7.42 [facility] pCO2, Jake 44 41 - 51 mmHg [facility] pO2, Jake 41 (H) 25 - 40 mmHg [facility] O2 Sat, Jake 88.0 (H) 40.0 - 70.0 % [facility] HCO3, Jake 29 21 - 29 mmol/L [facility] Base Excess, Jake 1.9 -2.0 - 3.0 mmol/L [facility] Patient Temperature 32.0 C [facility] FIO2 60.0 % [facility] Specimen Blood Performing Organization Address [facility] Phone Number [address] [address] CENTER ABORH, manual (05/21/2020 2:32 PM CDT) ABO Grouping O [facility] Rh Factor POS [facility] Specimen Blood Performing Organization Address City/[facility]/Zipcode Phone Number [address] [address] Hemoglobin A1c (05/21/2020 11:25 AM CDT)Only the most recent of2 resultswithin the time period is included. Hemoglobin A1C 8.0 (H) 4.3 - 6.1 % [facility] Specimen Blood Performing Organization Address [facility] Phone Number [address] [address] [place] Platelet Aggregation: Function Screen (05/21/2020 4:29 AM CDT)Only the most recent of3 resultswithin the time period is included. Pathologist: Ed Simpson MD [facility] (electronic signature) [facility] Platelets 165 150 - 450 K/CU [facility] ADP 74 62 - 100 % [facility] Platelet Rich Plasma 204 200 - 300 k/cu [facility] Plt. Function Screen Normal aggregation [facility] Interpretation results with ADP. No [facility] evidence of platelet dysfunction or P2Y12 inhibitor effect. Specimen Blood Narrative Performed At Platelet Function Screen results may be [facility] falsely low with platelet counts <75,000/cu mm. Proctologist ID - [id number] Performing Organization Address [facility]/Zipcode Phone Number [address] [address] CENTER Lipid panel (05/21/2020 4:29 AM CDT)Only the most recent of2 resultswithin the time period is included. Triglycerides 187 mg/dL [facility] Cholesterol 127 mg/dL [facility] HDL 25 mg/dL [facility] LDL Calculated 65 mg/dL [facility] Specimen Blood Narrative Performed At Triglyceride Reference Range: [facility] Low Risk <150 [id number] High Risk 200-499 Very High Risk>=500 Cholesterol Reference Range: Low Risk <200 [id number] High Risk>240 HDL Cholesterol Reference Range: Low Risk >=60 High Risk <40 LDL Cholesterol Reference Range: Optimal<100 Near [id number] [id number] Very High >=190 Proctologist ID - KIMBERLY Patel Performing Organization Address City/State/Zipcode Phone Number [facility] [address] [place] [address] CENTER Troponin I (05/20/2020 5:06 AM CDT)Only the most recent of3 resultswithin the time period is included. Troponin I 0.02 0.00 - 0.03 ng/mL [facility] Specimen Blood Narrative Performed At Troponin I (TnI) levels must be interpreted [facility] in the context of the presenting symptoms and the clinical findings. Elevated TnI levels indicate myocardial damage, but are not specific for ischemic heart disease. Elevated TnI levels are seen in patients with other cardiac conditions (including myocarditis and congestive heart failure), and slight TnI elevations occur in patients with other conditions, including sepsis, renal failure, acidosis, acute neurological disease, and persistent tachyarrhythmia. Proctologist ID - [email or web address] Performing Organization Address City/State/Zipcode Phone Number [place] [phone] [place] [address] [facility] (05/19/2020 6:47 PM CDT) Narrative Performed At Dacia Mena RN 05/19/20206:4 7 PM Lab Results Component Value Date HEPBSAG Nonreactive 05/18/2020 ] Lab Results Component Value Date GLUCOSE 168 (H) 05/19/2020 CALCIUM 7.9 (L) 05/19/2020 NA 137 05/19/2020 K 3.6 05/19/2020 CO2 23 05/19/2020 CL 102 05/19/2020 BUN 48 (H) 05/19/2020 CREATININE 6.00 (H) 05/19/2020 Lab Results Component Value Date WBC 7.3 05/19/2020 HGB 12.2 (L) 05/19/2020 HCT 35.2 (L) 05/19/2020 MCV 93.9 (H) 05/19/2020 PLT 192 05/19/2020 Verified order and secured HD consent. Verified patient's identification, full name, MRN and date of . HD treatment completed for 3.5 hours via left AVF, no problem cannulation. Net UF of 1840mls. BP went lower than parameters Mannitol 1 2.5 g given IV x2. Endorsed to nurse accordingly. TSH/Free T4 If Indicated (05/18/2020 4:35 PM CDT) TSH 1.118 0.350 - 4.940 uIU/mL [facility] Specimen Blood Narrative Performed At Proctologist ID - DB [facility] Performing Organization Address City/[facility]/Zipcode Phone Number [address] [address] CENTER Hepatitis B surface antigen (05/18/2020 4:35 PM CDT) HBsAg Screen Nonreactive Nonreactive [facility] Specimen Blood Narrative Performed At Specimen is considered negative for HBsAg. [facility] Performing Organization Address City/[facility]/Zipcode Phone Number [facility] [address] [place] [address] CENTER Hepatic function panel (05/18/2020 4:35 PM CDT) Protein, Total 7.5 6.0 - 8.3 gm/dL [facility] Albumin 4.0 3.5 - 5.0 g/dL [facility] Total Bilirubin 0.5 0.2 - 1.2 mg/dL [facility] Bilirubin, Direct 0.2 0.1 - 0.5 mg/dL [facility] Alkaline Phosphatase 113 40 - 150 U/L [facility] AST 40 (H) 5 - 34 U/L [facility] ALT 55 6 - 55 U/L [facility] Specimen Blood Narrative Performed At Proctologist ID - DB [facility] Performing Organization Address City/State/Zipcode Phone Number [facility] [address] [place] [address] CENTER after 06/25/2019 Insurance Payer Benefit Plan / Subscriber ID Type Phone Address Group [employer] - [employer] MEDICARE xxxxxxxxxxxx Maps Contracted [phone] [address] MEDICARE MGD HMO POS [id number] [place] [address] CDC REVIEW CDC REVIEW xxxxxxxx [address] [place] [place] [address] (Home) [address] [place] [id number] Advance Directives For more information, please contact:[facility] [place], [place] [phone] Code Status Date Activated Date Inactivated Comments Full Code 05/18/2020 3:38 PM 06/08/2020 12:59 PM This code status was determined by: Patient
--- OUTSIDE RECORDS SUMMARY | 2020-06-25 19:21 | XMS REPORT | Continuity of Care Document ---
:[address] [facility] t Address [address] [place] [address] Care Team Providers Name Role Phone Zoltan JARAMILLO, Mario Primary Care Physician ELVIA SHELDON Attending Clinician Unavailable Roland JARAMILLO, Elvia Attending Clinician Dylan JARAMILLO Attending Clinician Israel JARAMILLO, Read Attending Clinician Unavailable Sindi JARAMILLO, Tyrese Attending Clinician Ruddy Attending Clinician Unavailable José Attending Clinician Unavailable Jass JARAMILLO, Javon Attending Clinician Jamari Gallegos Attending Clinician Unavailable ELVIA SHELDON Admitting Clinician Unavailable Payers Payer Name Policy Policy Number Effective Expiration Source Type Date Date AETNA - MEDICARE MGD xxxxxxxxxxxx [facility] CAREAETNA MEDICARE O Lucia kes - POSxxxxxxxxxxxxMaps Medic al [id number] C [place] [id number] [place] [address] CDC REVIEWCDC xxxxxxxx [facility] REVIEWxxxxxxxxPO [facility] [id number] Center Problems Condition Condition Condition Status Onset Resolution Last Treating Co mments Source Name Details Category Date Date Treatment Clinician Date Acute Acute Disease Active [facility] post-opera post-opera 06-05 Lucia kes - tive pain tive pain 00:00: Medi katja 00 [place] Fluid Fluid Disease Active [facility] overload overload 06-05 [facility] - 00:00: Medical [address] [place] [address] SIRS SIRS Disease Active [facility] (systemic (systemic 06-05 [facility] - inflammato inflammato 00:00: Me dical ry ry 00 [place] response response syndrome) syndrome) s/p s/p Disease Active [facility] Pericardia Pericardia 06-03 Lucia kes - l Window l Window 00:00: Medica l 06/02/20 by 06/02/20 by 00 [facility] Dr.Hallman Dasilva Pericardia Pericardia Disease Active [facility] l effusion l effusion 06-03 Lucia kes - with with 00:00: Medical cardiac cardiac 00 [place] tamponade tamponade Acute Acute Disease Active [facility] pulmonary pulmonary 06-01 Luke s - edema edema 00:00: Medical 00 [place] Insulin Insulin Disease Active [facility] dependent dependent 06-01 [facility] - type 2 type 2 00:00: Medical diabetes diabetes 00 [place] mellitus mellitus PAF PAF Disease Active [facility] (paroxysma (paroxysma 06-01 Lucia kes - l atrial l atrial 00:00: Medica l fibrillati fibrillati 00 Ce nter on) on) 2vCABG 2vCABG Disease Active [facility] 05/22/20 by 05/22/20 by 05-[address] 00:00: Medical Sindi Delong [address] [place] [address] ESRD (end ESRD (end Disease Active Valentina ston stage stage 7-29 Methodi renal renal 00:00: st disease) disease) 00 ESRD on ESRD on Disease Active [facility] hemodialys hemodialys Lucia kes - [facility] is [facility] Acute Acute Disease Active [facility] blood loss blood loss Lucia kes - anemia anemia Medical Center Acute Acute Disease Active [facility] respirator respirator Lucia kes - y y Medical insufficie insufficie Ce nter ncy ncy Hypovolemi Hypovolemi Disease Active [facility] c shock c shock [facility] Hyperglyce Hyperglyce Disease Active C [facility] sher sher [facility] Allergies, Adverse Reactions, Alerts Allergy Allergy Status Severity Reaction(s) Onset Inactive Treating Comm ents Source Name Type Date Date Clinician Beef Propensi Active [facility] Containi ty to 06-03 [facility] - ng adverse 00:00: Medical Products reaction 00 Center s Cefuroxi Propensi Active [facility] me ty to 05-18 [facility] - Axetil adverse 00:00: Medical reaction 00 Center s Codeine Propensi Active migrines [facility] t ty to 05-18 [facility] - adverse 00:00: Medical reaction 00 Center s Latex Propensi Active [facility] ty to 05-18 [facility] - adverse 00:00: Medical reaction 00 Center s Hydrocod Propensi Active [address] one-Acet ty to 05-18 [facility] - aminophe adverse 00:00: Medical n reaction 00 [place] s Tramadol Propensi Active [facility] ty to 05-18 [facility] - adverse 00:00: Medical reaction 00 Center s Naproxen Propensi Active Palpitations [place] Sodium ty to 04-25 Methodi adverse 00:00: st reaction 00 s to drug Cefuroxi Propensi Active Hives [place] ty to 04-25 Methodi Axetil adverse 00:00: st reaction 00 s to drug Codeine Propensi Active Severe [place] ty to 04-25 Headache Methodi adverse 00:00: st reaction 00 s to drug Hydrocod Propensi Active Hives [place] one ty to 04-25 Methodi adverse 00:00: st reaction 00 s to drug Latex Propensi Active Rash [place] ty to 04-25 Methodi adverse 00:00: st reaction 00 s to drug Sulfa Propensi Active Hives [place] (Sulfona ty to 04-25 Methodi mide adverse 00:00: st Antibiot reaction 00 ics) s to drug Tramadol Propensi Active Swelling [place] ty to 04-25 Methodi adverse 00:00: st reaction 00 s to drug Sulfa Propensi Active Hives [facility] (Sulfona ty to 7-29 [facility] - mide adverse 00:00: Medical Antibiot reaction 00 Center ics) s Family History Family Member Diagnosis Comments Start Date Stop Date Source Natural father COPD [place] [facility] Natural father Dementia [place] [facility] Natural mother Diabetes [place] [facility] Natural mother Heart disease [place] [employer] Natural mother Hypertension [facility] Social History Social Habit Start Date Stop Date Quantity Comments Source History of Snuff User [facility] - tobacco use Medical Cente r Sex Assigned At [facility] Tobacco use and 2019-06-21 2019-06-21 Current user [place] [employer] exposure 00:00:00 00:00:00 Alcohol intake 2019-06-21 2019-06-21 Ex-drinker [facility] thodist 00:00:00 00:00:00 (finding) Smoking Status Start Date Stop Date Source Never smoker [facility] Medications Ordered Filled Start Stop Current Ordering Indication Dosage Frequency Signature Comments Components Source Medication Medication Date Date Medication? Clinician (SIG) Name Name DULoxetine 2020- Yes 20mg QD Take [address] (CYMBALTA) 9-05 09-05 capsule [facility] - 20 MG 00:00: 23:59 (20 mg Medical capsule 00 :00 total) by Center mouth daily No more refills through my office. polyethylen 0 Yes Use 1-[address] e glycol 9-04 times per [facility] - (GLYCOLAX) 00:00: day per Medi katja 17 gram 00 package Center packet instructio ns. It is over-the-c ounter. guaiFENesin Yes Use as [facility] (MUCINEX) 9-04 needed per Luke s - 600 mg 12 00:00: package Medic al hr tablet 00 instructio Cent er ns for congestion . It is over-the-c ounter. Do not use Mucinex with decongesta nt. amiodarone 2019-0 Yes Take [address] (PACERONE) 9-04 twice a [facility] - 200 MG 00:00: day until Medica l tablet 00 seen by Center your cardiologi st in follow up. Further dosing instructio ns and refills through outpatient cardiology . No refills through my office. acetaminoph 2019-0 Yes Use as [facility] en 9-04 needed per [facility] - (TYLENOL) 00:00: package Medic al [facility]. Ok to take with oral dilaudid dosing. It is over the counter. metoprolol 2020- Yes 50mg Take [address] succinate 06-01 tablet (50 Chasidy es - (TOPROL-XL) 00:00: 23:59 mg total) Medical 50 MG 24 hr 00 :00 by mouth Cent er tablet every 12 (twelve) hours No more refills through my office. atorvastati 2020- Yes 80mg QD Take [address] n (LIPITOR) 06-01 tablet (80 L ukes - 80 MG 00:00: 23:59 mg total) Medica l tablet 00 :00 by mouth Center nightly No more refills through my office. ipratropium 2020- Yes 2{puff} Inhale [address] (ATROVENT 06-01 puffs by [facility] - HFA) 17 00:00: 23:59 mouth via Medi katja mcg/actuati 00 :00 inhaler Cente r on inhaler every 6 (six) hours. HYDROmorpho 2020- No 2mg Take [address] [facility] [facility] ne 06-01 tablet (2 [facility] - (DILAUDID) 00:00: 23:59 mg total) M edical 2 MG tablet 00 :00 by mouth Cent er every 6 (six) hours as needed (for severe acute postop pain.) for up to 7 days. Max Daily Amount: 8 mg gabapentin Yes 300mg QD Take [address] (NEURONTIN) 8-21 mg by [facility] - 300 MG 16:23: mouth Medical capsule 39 nightly . [place] fluticasone 2020- No 1{puff} Inhale [address] furoate 200 8-21 08-21 puff by Luke s - mcg/actuati 15:23: 00:00 mouth via Medical on DsDv 43 :00 inhaler. [place] furosemide 2019-0 Yes 80mg Take [address] (LASIX) 80 8-21 by mouth. Luke s - MG tablet 15:23: Medical 00 Center aspirin 81 2019-0 Yes 81mg Take [address] MG chewable 8-21 by mouth. Chasidy es - tablet 15:22: Medical 59 [place] clopidogreL 0 Yes 75mg Take [address] (PLAVIX) 75 8-21 by mouth. Chasidy es - mg tablet 15:22: Medical 59 [place] ONETOUCH Yes [facility] ULTRA BLUE 8-16 [facility] - TEST STRIP 00:00: Medical Strp 00 [place] metoclopram 0 2020- No CHI S t patricia HCl 8-12 08-21 [facility] - (REGLAN) 10 00:00: 00:00 Medic al MG tablet 00 :00 [place] diflorasone Yes APPLY 1-[address] (PSORCON) 8-11 GRAMS TO [facility]ukes - 0.05 % 00:00: AFFECTED Medical cream 00 AREA(S) UP Center TO 3-4 TIMES DAILY NEEDED, AVOID FACE. USE 2 WEEKS ON, 1 WEEK OFF LONG DIRECTED BY PHYSICIAN lidocaine-p Yes APPLY 1-[address] rilocaine 8-11 GRAMS TO [facility] - (EMLA) 00:00: AFFECTED Medical 2.5-2.5 % 00 AREA(S) Center cream 3-4 TIMES DAILY LONG DIRECTED BY PHYSICIAN. diclofenac 2019- No APPLY 1-[address] 1 % Gel 8-11 08-21 GRAMS TO [facility]ukes - 00:00: 00:00 AFFECTED Medical 00 :00 AREA(S) Center 3-4 TIMES DAILY LONG DIRECTED BY PHYSICIAN. DIALYVITE Yes 1{tbl} QD Take [address] 800-ULTRA D 8-09 tablet by Chasidy es - 0.8-2,000 00:00: mouth Medical mg-unit Tab 00 daily. [place] ULTRA THIN Yes [facility] LANCETS 31 8-08 [facility] - gauge Misc 00:00: Medical 00 [place] ARNUITY 0 2019- No TAKE [address] [facility] ELLIPTA 200 7-28 08-21 PUFF BY Luke s - mcg/actuati 00:00: 00:00 MOUTH Medi katja on DsDv 00 :00 EVERY DAY [place] losartan 0 2020- No 50mg QD Take [address] (COZAAR) 25 7-23 09-04 by mouth Chasidy es - MG tablet 00:00: 00:00 daily . Medi katja 00 :00 [place] ergocalcife 2019-0 2020- No 1{capsu Q7D Take [address] rol 7-23 08-21 le} capsule by [facility] - (ERGOCALCIF 00:00: 00:00 mouth once Medical KALYANI) 1,250 00 :00 a week. Cente r mcg (50,000 unit) capsule TRESIBA Yes INJECT 30 [facility]I S t FLEXTOUCH 7-13 UNITS SUB [facility]ukes - U-200 200 00:00: Q DAILY Medic al unit/mL (3 00 Center mL) InPn albuterol 2020- No USE ONE [facility] HFA 04-05 09-04 PUFF EVERY [facility] - (VENTOLIN 00:00: 00:00 4 HOURS M edical HFA) 90 00 :00 NEEDED Center mcg/actuati on inhaler NOVOLIN R Yes INJECT [address] REGULAR 7-05 UNITS [facility]ukes - U-100 00:00: DIRECTED 2 Medica l INSULN 100 00 TIMES A Center unit/mL DAY injection DULoxetine 2019- No 30mg QD Take [address] (CYMBALTA) 03-08 by mouth Luke s - 30 MG 00:00: 00:00 daily. Medical capsule 00 :00 Center VASCEPA 1 2020- No 2{capsu Q.5D Take [address] gram Cap 03-04 le} capsules [facility]ukes - 00:00: 00:00 by mouth 2 Medica l 00 :00 (two) Center times daily. insulin Yes 32U [id number] Inject 32 Dbobs regular, 06-20 [id number] Units as M ethodi human 13:35: 3D directed 3 st (NOVOLIN R 04 (three) REGULAR times a U-100 day before INSULN INJ) meals. insulin Yes 70U Inject 70 [place] on degludec - Units Methodi (TRESIBA 13:35: under the st [...] nightly. st tablet 04 gabapentin Yes 300mg [id number] Take 300 [place] (NEURONTIN) 06-20 [id number] mg by Jorge aliceaodi 300 mg 13:35: 3D mouth 3 st capsule 04 (three) times a day. aspirin Yes 81mg QD Take 81 mg [place] (ECOTRIN) 06-20 by mouth Method i 81 MG 13:35: daily. st enteric 04 coated tablet acetaminoph Yes 2{tbl} Take 2 [place] en/chlorphe 06-20 tablets by Vt leyda niramine 13:35: mouth as st (CORICIDIN 04 needed. HBP COLD AND FLU ORAL) acetaminoph 2019- No acute pain 1{tbl} Q4H Take 1 [place] en-codeine 06-20 09-30 tablet by Met [place] (TYLENOL 00:00: 23:[address] WITH 00 :00 every 4 CODEINE #3) (four) 300-30 mg hours as per tablet needed for moderate pain for up to 7 days .Acute Pain. doxazosin 2020- No 1mg Take [address] (CARDURA) 1 3-15 09-04 by mouth. Lucia kes - MG tablet 00:00: 00:00 Medical 00 :00 [place] DULoxetine 2019- No [facility] (CYMBALTA) 12-05 [facility] - 60 MG 00:00: 00:00 Medical capsule 00 :00 [place] amLODIPine 2019- No 5mg Take [address] (NORVASC) 5 11-08 by mouth. Lucia kes - MG tablet 00:00: 00:00 Medical 00 :00 [place] isosorbide 2019- No 30mg Take [address] mononitrate 11-04 by mouth. Lucia kes - (IMDUR) 30 00:00: 00:00 Medica l MG 24 hr 00 :00 [place] tablet dulaglutide 2019- No [facility] t (TRULICITY) 10-31 [facility] - 1.5 mg/0.5 00:00: 00:00 Medica l mL PnIj 00 :00 [place] amitriptyli 2019- No 25mg Take [address] ne (ELAVIL) 10-23 by mouth. Lucia kes - 25 MG 00:00: 00:00 Medical tablet 00 :00 [place] nebivoloL 2019- No [facility] (BYSTOLIC) 10-03 [facility] - 10 MG 00:00: 00:00 Medical tablet 00 :00 [place] Vital Signs Vital Name Observation Time Observation Value Comments Source Heart rate 2020-06-08 07:48:00 75 /min [facility] L [facility] Respiratory rate 2020-06-08 07:48:00 18 /min [facility] Oxygen saturation in 2020-06-08 07:48:00 94 /min [facility] - Arterial blood by Medical Ce nter Pulse oximetry Systolic blood 2020-06-08 07:00:00 125 mm[Hg] [facility] pressure [facility] Diastolic blood 2020-06-08 07:00:00 58 mm[Hg] [facility] Body temperature 2020-06-08 07:00:00 36.06 Jeniffer [facility] Body weight Measured 2020-06-07 12:00:00 143.6 kg [facility] BMI 2020-06-07 12:00:00 41.77 kg/m2 [facility] Body height 2020-05-18 15:37:00 185.4 cm [facility] Procedures Procedure Date / Time Performing Clinician Source Performed RHYTHM STRIP - SCAN 2020-06-20 17:37:18 Provider, [facility] RHYTHM STRIP - SCAN 2020-06-12 10:31:56 Provider, Default [facility] POCT-GLUCOSE METER 2020-06-08 07:28:00 Dylan [facility] CBC W/PLT+MANUAL DIFF 2020-06-08 06:29:00 Sindi [facility] CBC W/PLT COUNT & AUTO 2020-06-08 06:29:00 Enid England CH I [facility] CBC WITH PLATELET COUNT + 2020-06-08 06:29:[address] [facility] - MANUAL DIFF [facility] (CELLAVISION MANUAL DIFF) 2020-06-08 06:29:[address] [facility] POCT-GLUCOSE METER 2020-06-07 21:13:00 Dylan [facility] POCT-GLUCOSE METER 2020-06-07 16:08:00 Dylan [facility] POCT-GLUCOSE METER 2020-06-07 11:06:00 Dylan [facility] HEMODIALYSIS INPATIENT 2020-06-07 08:18:41 Enid England CH I [facility] POCT-GLUCOSE METER 2020-06-07 07:38:00 [facility] CHEST 1 VIEW 2020-06-07 04:34:00 Nixon Delong [facility] - PORTABLE/BEDSIDE [facility] CBC W/PLT+MANUAL DIFF 2020-06-07 03:34:[address] [facility] BASIC METABOLIC PANEL (7) 2020-06-07 03:34:00 Subhash Richardson CH I [facility] MAGNESIUM 2020-06-07 03:34:00 Dylan [facility] PHOSPHORUS 2020-06-07 03:34:00 Enid England [facility] CBC WITH PLATELET COUNT + 2020-06-07 03:34:[address] [facility] - MANUAL DIFF [facility] (CELLAVISION MANUAL DIFF) 2020-06-07 03:34:[address] [facility] POCT-GLUCOSE METER 2020-06-06 21:09:00 Givemundo [facility] POCT-GLUCOSE METER 2020-06-06 16:36:00 [facility] POCT-GLUCOSE METER 2020-06-06 11:32:00 [facility] PO[facility]UCOSE METER 2020-06-06 07:18:00 [facility] CBC W/PLT COUNT & AUTO 2020-06-06 06:50:00 Nixon Delong [facility] DIFFERENTIAL [facility] BASIC METABOLIC PANEL (7) 2020-06-06 06:48:00 Enid England [facility] XR CHEST 1 VIEW 2020-06-06 04:47:00 Papo Rasheed [facility] - PORTABLE/BEDSIDE [facility] POCT-GLUCOSE METER 2020-06-05 23:03:00 [facility] TRANSFUSION SERVICE REPORT 2020-06-05 18:21:41 Marlene Santiago [facility] - - SCAN Scanning [facility] POCT-GLUCOSE METER 2020-06-05 16:56:00 [facility] CALCIUM, IONIZED 2020-06-05 14:10:00 Bel Mendoza [facility] HEMODIALYSIS INPATIENT 2020-06-05 13:56:15 Elissa Golden [facility] POCT-GLUCOSE METER 2020-06-05 13:03:00 [facility] BASIC METABOLIC PANEL (7) 2020-06-05 06:12:00 Bel Mendoza [facility] CBC (HEMOGRAM ONLY) 2020-06-05 06:12:00 Bel Mendoza [facility] MAGNESIUM 2020-06-05 06:12:00 Reji [facility] PHOSPHORUS 2020-06-05 06:12:00 Reji [facility] POCT-GLUCOSE METER 2020-06-05 06:06:00 Subhash Richardson [facility] XR CHEST 1 VIEW 2020-06-05 01:09:00 Papo Rasheed [facility] PORTABLE/BEDSIDE [facility] PREPARE RBC 2020-06-04 23:54:00 Nixon Delong [facility] TRANSFUSION SERVICE REPORT 2020-06-04 18:01:23 Marlene Santiago [facility] SCAN [facility] POCT-GLUCOSE METER 2020-06-04 15:55:00 Subhash Richardson [facility] POCT-GLUCOSE METER 2020-06-04 12:54:00 Subhash Richardson [facility] POCT-GLUCOSE METER 2020-06-04 08:02:00 Subhash Richardson [facility] BASIC METABOLIC PANEL (7) 2020-06-04 03:56:00 Julio Dunn [facility] MAGNESIUM 2020-06-04 03:56:00 Julio Dunn [facility] CBC W/PLT COUNT & AUTO 2020-06-04 03:56:00 Julio Dunn [facility] XR CHEST 1 VIEW 2020-06-04 01:49:00 Papo Rasheed [facility] PORTABLE/BEDSIDE [facility] POCT-GLUCOSE METER 2020-06-03 17:17:00 Subhash Richardson [facility] BLOOD GAS, ARTERIAL 2020-06-03 17:00:00 Zachary Oquendo [facility] BLOOD GAS, ARTERIAL 2020-06-03 14:26:00 Moy Saleh [facility] XR CHEST 1 VIEW 2020-06-03 11:07:[address] [facility] - PORTABLE/BEDSIDE [facility] CALCIUM, IONIZED 2020-06-03 10:32:00 Zachary Oquendo [facility] BLOOD GAS, ARTERIAL 2020-06-03 10:31:00 Zachary Oquendo [facility] FIBRINOGEN 2020-06-03 10:31:00 Zachary Oquendo [facility] APTT 2020-06-03 10:31:00 Zachary Oquendo [facility] PROTHROMBIN TIME/INR 2020-06-03 10:31:00 Zachary Oquendo C [facility] CBC (HEMOGRAM ONLY) 2020-06-03 10:31:00 Zachary Oquendo [facility] BASIC METABOLIC PANEL (7) 2020-06-03 10:31:00 Zachary Oquendo lemaximino [facility] MAGNESIUM 2020-06-03 10:31:00 Zachary Oquendo [facility] LACTIC ACID, ARTERIAL 2020-06-03 10:31:00 Zachary Oquendo [facility] PHOSPHORUS 2020-06-03 10:31:00 Zachary Oquendo [facility] TRANSFUSE LEUKO-REDUCED 2020-06-03 08:56:36 Nixon Muhammad [facility] RED BLOOD CELLS [facility] CREATION,PERICARDIAL 2020-06-03 08:00:00 Nixon Delong [facility] - WINDOW [facility] SUNNY 2020-06-03 08:00:00 Nixon Delong [facility] s [facility] ECG 12-LEAD 2020-06-03 05:38:31 Philip John [facility] BASIC METABOLIC PANEL (7) 2020-06-03 04:34:00 Subhash Richardson [facility] MAGNESIUM 2020-06-03 04:34:00 Subhash Richardson [facility] TYPE AND SCREEN, AUTOMATED 2020-06-03 04:34:00 Theron John [facility] HEMODIALYSIS INPATIENT 2020-06-02 22:41:40 Elissa Golden [facility] SARS-COV2/RT-PCR ([facility] & 2020-06-02 18:03:00 Philip John [facility] POCT-GLU[facility]SE METER 2020-06-02 16:18:00 Dylan [facility] CT CHEST WITHOUT IV 2020-06-02 13:24:00 Pierre Serrano [facility] - CONTRAST [facility] POCT-GLUCOSE METER 2020-06-02 11:23:00 Subhash Richardson [facility] POCT-GLUCOSE METER 2020-06-02 07:31:00 [facility] BASIC METABOLIC PANEL (7) 2020-06-02 04:07:00 Subhash Richardson [facility] MAGNESIUM 2020-06-02 04:07:00 Dylan [facility] CBC W/PLT COUNT & AUTO 2020-06-02 04:07:00 Dylan [facility] POCT-GLUCOSE METER 2020-06-01 21:09:00 Dylan [facility] LIMITED 2D ECHOCARDIOGRAM 2020-06-01 20:17:13 Subhash Richardson [facility] POCT-GLUCOSE METER 2020-06-01 19:46:00 Dylan [facility] XR CHEST 1 VIEW 2020-06-01 19:36:00 Dylan [facility] PORTABLE/BEDSIDE [facility] POCT-GLUCOSE METER 2020-06-01 16:36:00 Subhash Richardson [facility] POCT-GLUCOSE METER 2020-06-01 11:20:00 Dylan [facility] POCT-GLUCOSE METER 2020-06-01 07:24:00 Dylan [facility] BASIC METABOLIC PANEL (7) 2020-06-01 06:05:00 Dylan [facility] MAGNESIUM 2020-06-01 06:05:00 Dylan [facility] POCT-GLUCOSE METER 2020-05-31 20:24:00 Dylan [facility] POCT-GLUCOSE METER 2020-05-31 16:00:00 Givemundo [facility] POCT-GLUCOSE METER 2020-05-31 13:20:00 Dylan [facility] HEMODIALYSIS INPATIENT 2020-05-31 09:22:[address] Sukh [facility] POCT-GLUCOSE METER 2020-05-31 07:53:00 Giveon [facility] CBC (HEMOGRAM ONLY) 2020-05-31 05:43:00 Sindi [facility] BASIC METABOLIC PANEL (7) 2020-05-31 05:43:00 GiveSubhash flower [facility] MAGNESIUM 2020-05-31 05:43:00 Givemundo [facility] POCT-GLUCOSE METER 2020-05-30 21:17:00 Givemundo [facility] POCT-GLUCOSE METER 2020-05-30 16:22:00 Givemundo [facility] POCT-GLUCOSE METER 2020-05-30 11:35:00 Giveon [facility] XR CHEST 1 VIEW 2020-05-30 08:57:00 Dylan [facility] PORTABLE/BEDSIDE Medical Center ECG 12-LEAD 2020-05-30 07:10:29 Unknown, Hl7 [facility] ECG 12-LEAD 2020-05-30 07:09:56 Unknown, Hl7 [facility] POCT-GLUCOSE METER 2020-05-30 06:56:00 Givemundo [facility] CBC (HEMOGRAM ONLY) 2020-05-30 05:38:00 Nixon Delong [facility] BASIC METABOLIC PANEL (7) 2020-05-30 05:38:00 GiveonSubhash [facility] MAGNESIUM 2020-05-30 05:38:00 Givemundo [facility] ECG 12-LEAD 2020-05-30 00:37:56 Unknown, Hl7 [facility] POCT-GLUCOSE METER 2020-05-29 20:57:00 Giveon [facility] POCT-GLUCOSE METER 2020-05-29 16:38:00 Dylan [facility] 2D ECHO W/ DOPPLER 2020-05-29 13:10:04 Subhash Richardson [facility] (CW/PW/COLOR) [facility] POCT-GLUCOSE METER 2020-05-29 12:30:00 Subhash Richardson [facility] POCT-GLUCOSE METER 2020-05-29 09:23:00 Subhash Richardson [facility] HEMODIALYSIS INPATIENT 2020-05-29 07:44:28 [place] Elissa [facility] CBC (HEMOGRAM ONLY) 2020-05-29 05:48:00 Nixon Delong [facility] BASIC METABOLIC PANEL (7) 2020-05-29 05:48:00 Subhash Richardson [facility] MAGNESIUM 2020-05-29 05:48:00 Subhash Richardson [facility] [facility] B-TYPE NATRIURETIC FACTOR 2020-05-29 05:48:00 Marlo Loyd [facility] (BNP) [facility] POCT-GLUCOSE METER 2020-05-28 21:07:00 Subhash Richardson [facility] POCT-GLUCOSE METER 2020-05-28 16:29:00 Dylan [facility] POCT-GLUCOSE METER 2020-05-28 11:02:00 Subhash Richardson [facility] ECG 12-LEAD 2020-05-28 08:07:40 Unknown, Hl7 [facility] POCT-GLUCOSE METER 2020-05-28 07:07:00 Subhash Richardson [facility] BASIC METABOLIC PANEL (7) 2020-05-28 04:45:00 Vignesh Sheldon [facility] PHOSPHORUS 2020-05-28 04:45:00 Vignesh Sheldon [facility] CBC (HEMOGRAM ONLY) 2020-05-28 04:45:00 Fany Mae [facility] POCT-GLUCOSE METER 2020-05-27 21:17:00 Dylan [facility] POCT-GLUCOSE METER 2020-05-27 16:31:00 Giveon [facility] POCT-GLUCOSE METER 2020-05-27 11:36:00 [facility] POCT-[facility]UCOSE METER 2020-05-27 06:47:00 [facility] BASIC METABOLIC PANEL (7) 2020-05-27 04:21:00 Vignesh Sheldon on [facility] PHOSPHORUS 2020-05-27 04:21:00 Vignesh Sheldon [facility] CBC (HEMOGRAM ONLY) 2020-05-27 04:21:00 [facility] POCT-GLUCOSE METER 2020-05-26 21:00:00 [facility] POCT-GLUCOSE METER 2020-05-26 16:01:00 Subhash Richardson [facility] HEMODIALYSIS INPATIENT 2020-05-26 11:45:00 Bakari Velásquez [facility] POCT-GLUCOSE METER 2020-05-26 11:33:00 [facility] BASIC METABOLIC PANEL (7) 2020-05-26 05:26:00 Vignesh Sheldon [facility] PHOSPHORUS 2020-05-26 05:26:00 Vignesh Sheldon [facility] CBC (HEMOGRAM ONLY) 2020-05-26 05:26:00 [facility] & 2020-05-25 18:58:00 Vignesh Sheldon [facility] POCT-GLUCOSE METER 2020-05-25 18:13:00 [facility] HEMOD[facility] INPATIENT 2020-05-25 18:06:00 Bakari Velásquez [facility] POCT-GLUCOSE METER 2020-05-25 11:20:00 Subhash Richardson [facility] POCT-GLUCOSE METER 2020-05-25 07:25:00 Giveon, Subhash [facility] BLOOD GAS, ARTERIAL 2020-05-25 06:33:00 [facility] BASIC METABOLIC PANEL (7) 2020-05-25 03:47:00 Vignesh Sheldon [facility] PHOSPHORUS 2020-05-25 03:47:00 Vignesh Sheldon [facility] CBC (HEMOGRAM ONLY) 2020-05-25 03:47:00 [facility] XR CHEST 1 VIEW 2020-05-25 00:45:00 [facility] PORTABLE/BEDSIDE [facility] POCT-GLUCOSE METER 2020-05-24 22:51:00 Dylan [facility] RHYTHM STRIP - SCAN 2020-05-24 16:20:29 Marlene Santiago [facility] POCT-GLUCOSE METER 2020-05-24 15:58:00 Dylan [facility] POCT-GLUCOSE METER 2020-05-24 11:48:00 Dylan [facility] POCT-GLUCOSE METER 2020-05-24 06:47:00 Dylan [facility] BASIC METABOLIC PANEL (7) 2020-05-24 04:44:00 Vignesh Sheldon [facility] PHOSPHORUS 2020-05-24 04:44:00 Vignesh Sheldon [facility] BLOOD GAS, ARTERIAL 2020-05-24 04:44:00 [facility] CBC (HEMOGRAM ONLY) 2020-05-24 04:44:00 [facility] POCT-GLUCOSE METER 2020-05-24 02:10:00 Dylan [facility] XR CHEST 1 VIEW 2020-05-24 00:50:00 [facility] BASIC METABOLIC PANEL (7) 2020-05-23 23:49:00 Bel Mendoza [facility] CBC (HEMOGRAM ONLY) 2020-05-23 23:49:00 Bel Mendoaz [facility] MAGNESIUM 2020-05-23 23:49:00 Ju Mendozath [facility] POCT-GLUCOSE METER 2020-05-23 23:48:00 Dylan [facility] POCT-GLUCOSE METER 2020-05-23 22:52:00 Dylan [facility] POCT-GLUCOSE METER 2020-05-23 21:09:00 Dylan [facility] POCT-GLUCOSE METER 2020-05-23 20:14:00 Dylan [facility] POCT-GLUCOSE METER 2020-05-23 18:27:00 Dylan [facility] TRANSFUSION SERVICE REPORT 2020-05-23 18:03:59 Provider [facility] POCT-GLUCOSE METER 2020-05-23 17:42:00 Dylan [facility] POCT-GLUCOSE METER 2020-05-23 16:41:00 Mynormundo [facility] POCT-GLUCOSE METER 2020-05-23 14:58:00 Mynormundo [facility] POCT-GLUCOSE METER 2020-05-23 13:31:00 Dylan [facility] POCT-GLUCOSE METER 2020-05-23 12:27:00 Dylan [facility] POCT-GLUCOSE METER 2020-05-23 11:37:00 Dylan [facility] POCT-GLUCOSE METER 2020-05-23 10:35:00 Dylan [facility] POCT-GLUCOSE METER 2020-05-23 09:34:00 Dylan [facility] POCT-GLUCOSE METER 2020-05-23 08:23:00 Dylan [facility] POCT-GLUCOSE METER 2020-05-23 07:37:00 Dylan [facility] POCT-GLUCOSE METER 2020-05-23 06:45:00 Dylan [facility] POCT-GLUCOSE METER 2020-05-23 05:23:00 [facility] POCT-GLUCOSE METER 2020-05-23 03:41:00 [facility] LACTIC ACID, ARTERIAL 2020-05-23 03:27:[address] [facility] BASIC METABOLIC PANEL (7) 2020-05-23 03:27:00 Vignesh Sheldon mundo [facility] MAGNESIUM 2020-05-23 03:27:00 Vignesh Sheldonon [facility] PHOSPHORUS 2020-05-23 03:27:00 Vignesh Sheldon [facility] BLOOD GAS, ARTERIAL 2020-05-23 03:27:00 [facility] CBC (HEMOGRAM ONLY) 2020-05-23 03:27:00 [facility] OXYGEN SATURATION, 2020-05-23 03:27:00 [facility] POCT-GLUCOSE METER 2020-05-23 02:39:00 [facility] CHEST 1 VIEW 2020-05-23 02:12:00 [facility]BEDSIDE [facility] POCT-GLUCOSE METER 2020-05-23 00:35:00 [facility] GLU[facility]SE-STAT LAB 2020-05-23 00:28:00 Sanju Calvo [facility] LACTIC ACID, ARTERIAL 2020-05-23 00:28:00 Reji Bel [facility] BLOOD GAS, ARTERIAL 2020-05-23 00:28:00 Reji [facility] POCT-GLUCOSE METER 2020-05-22 22:59:00 [facility] POCT-GLUCOSE METER 2020-05-22 22:13:00 [facility]ON[facility] 2020-05-22 22:06:00 Sanju Calvo [facility] BLOOD GAS, ARTERIAL 2020-05-22 22:04:00 [facility] LACTIC ACID, ARTERIAL 2020-05-22 22:04:00 [facility] BASIC METABOLIC PANEL (7) 2020-05-22 22:04:00 Sanju Calvo [facility] MAGNESIUM 2020-05-22 22:04:00 [facility] PHOSPHORUS 2020-05-22 22:04:00 Sanju Calvo [facility] POCT-GLUCOSE METER 2020-05-22 20:49:00 [facility] GLUCOSE 2020-05-22 19:15:00 [facility] POTASSIUM 2020-05-22 19:15:00 [facility] LACTIC ACID, ARTERIAL 2020-05-22 19:15:00 [facility] BLOOD GAS, ARTERIAL 2020-05-22 19:15:00 Durand, Madie Ashly [facility] BASIC METABOLIC PANEL (7) 2020-05-22 19:15:00 Madie Durand [facility] CALCIUM, IONIZED 2020-05-22 19:15:00 Ladarius Madie Ashly [facility] POCT-GLUCOSE METER 2020-05-22 18:39:00 Dylan [facility] TRANSFUSION SERVICE REPORT 2020-05-22 18:21:46 Marlene Santiago [facility] SCAN [facility] PREPARE RBC 2020-05-22 17:44:00 Nixon Delong [facility] POCT-GLUCOSE METER 2020-05-22 17:23:00 [facility] CBC (HEMOGRAM ONLY) 2020-05-22 16:21:00 [facility] BLOOD GAS, ARTERIAL 2020-05-22 16:18:00 [facility] LACTIC ACID, ARTERIAL 2020-05-22 16:18:00 [facility] GLUCOSE 2020-05-22 16:18:[address] [facility] POTASSIUM 2020-05-22 16:18:[address] [facility] BASIC METABOLIC PANEL (7) 2020-05-22 16:18:00 [facility] OXYGEN SATURATION, 2020-05-22 16:18:00 Madie Durand [facility] POCT-GLUCOSE METER 2020-05-22 16:11:00 Subhash Richardson [facility] BLOOD GAS, ARTERIAL 2020-05-22 13:48:00 [facility] OXYGEN SATURATION, 2020-05-22 13:48:00 Madie Durand [facility] XR CHEST 1 VIEW 2020-05-22 13:28:00 [facility]SIDE [facility] Center CBC (HEMOGRAM ONLY) 2020-05-22 13:09:00 [facility] COMPREHENSIVE METABOLIC 2020-05-22 13:09:00 [facility] LACTIC ACID, ARTERIAL 2020-05-22 13:09:00 [facility] MAGNESIUM 2020-05-22 13:09:00 [facility] PHOSPHORUS 2020-05-22 13:09:00 [facility] PT/APTT 2020-05-22 13:09:00 [facility] FIBRINOGEN 2020-05-22 13:09:00 [facility] D-DIMER 2020-05-22 13:09:00 [facility] BLOOD GAS, ARTERIAL 2020-05-22 13:08:00 Carmelita, [facility] OXYGEN SATURATION, 2020-05-22 13:08:00 Carmelita, [facility] POCT-ACT 2020-05-22 11:31:00 RolandVignesh [facility] CALCIUM, IONIZED 2020-05-22 11:29:17 [facility] BLOOD GAS, ARTERIAL 2020-05-22 11:29:17 [facility] SODIUM NA-STAT LAB 2020-05-22 11:29:17 [facility] POT[facility] 2020-05-22 11:29:17 [facility] GLUCOSE-STAT LAB 2020-05-22 11:29:17 [facility] HGB/HCT (H&H) - STAT LAB 2020-05-22 11:29:17 [facility] POCT-ACT 2020-05-22 10:51:00 Roland Vignesh [facility] POCT-ACT 2020-05-22 10:19:00 Roland Vignesh [facility] BLOOD GAS, ARTERIAL 2020-05-22 10:17:48 [facility] NA-STAT LAB 2020-05-22 10:17:48 Sindi [facility] POTASSIUM-STAT LAB 2020-05-22 10:17:48 Sindi [facility] GLUCOSE-STAT LAB 2020-05-22 10:17:48 Sindi [facility] HGB/HCT (H&H) - STAT LAB 2020-05-22 10:17:48 Nixon Delong [facility] POCT-ACT 2020-05-22 09:47:00 Roland Vignesh [facility] BLOOD GAS, VENOUS 2020-05-22 09:42:52 Sindi [facility] BLOOD GAS, ARTERIAL 2020-05-22 09:42:48 Sindi, Nixon [facility] SODIUM NA-STAT LAB 2020-05-22 09:42:48 Nixon Delong [facility] POTASSIUM-STAT LAB 2020-05-22 09:42:48 Nixon Delong [facility] GLUCOSE-STAT LAB 2020-05-22 09:42:48 Nixon Delong [facility] HGB/HCT (H&H) - STAT LAB 2020-05-22 09:42:48 Nixon Delong I [facility] POCT-ACT 2020-05-22 09:16:00 Vignesh Sheldon [facility] CALCIUM, IONIZED 2020-05-22 08:11:44 [facility] BLOOD [facility]AS, ARTERIAL 2020-05-22 08:11:44 [facility] NA-STAT LAB 2020-05-22 08:11:44 [facility] POT[facility]SI[facility] LAB 2020-05-22 08:11:44 [facility] GLU[facility]SE-STAT LAB 2020-05-22 08:11:44 [facility] HGB/HCT (H&H) - STAT LAB 2020-05-22 08:11:44 [facility] BYPASS,AORTO CORONARY 2020-05-22 07:30:[address] [facility] - ALICE/SVG [facility] ENDOSCOPIC HARVEST,VEIN 2020-05-22 07:30:00 SindiNixon cabral [facility] BASIC METABOLIC PANEL (7) 2020-05-22 03:38:00 Vignesh Sheldon [facility] MAGNESIUM 2020-05-22 03:38:00 Vignesh Sheldon [facility] PHOSPHORUS 2020-05-22 03:38:00 Vignesh Sheldon [facility] CBC W/PLT COUNT & AUTO 2020-05-22 03:38:00 Vignesh Sheldon [facility] POCT-GLUCOSE METER 2020-05-21 22:28:00 Vignesh Sheldon [facility] ECG 12-LEAD 2020-05-21 17:48:56 Unknown, Hl7 [facility] POCT-GLUCOSE METER 2020-05-21 17:43:00 Vignesh Sheldon [facility] ABORH, MANUAL 2020-05-21 14:32:00 Rayne Stratton [facility] POCT-GLUCOSE METER 2020-05-21 12:32:00 Vignesh Sheldon [facility] POCT-GLUCOSE METER 2020-05-21 11:32:00 Vignesh Sheldon [facility] HEMOGLOBIN A1C 2020-05-21 11:25:00 [facility] PROTHROMBIN TIME/INR 2020-05-21 11:25:00 [facility] APTT 2020-05-21 11:25:00 [facility] TYPE AND SCREEN, AUTOMATED 2020-05-21 11:25:00 Ania Fierro [facility] HEMODIALYSIS INPATIENT 2020-05-21 07:46:37 Bakari Velásquez [facility] POCT-GLUCOSE METER 2020-05-21 07:08:00 [facility] BASIC METABOLIC PANEL (7) 2020-05-21 04:29:00 Vignesh Sheldon [facility] MAGNESIUM 2020-05-21 04:29:00 Vignesh Sheldon [facility] PHOSPHORUS 2020-05-21 04:29:00 Vignesh Sheldon [facility] PLATELET AGGREGATION: 2020-05-21 04:29:00 Vignesh Sheldon [facility] FUNCTION SCREEN [facility] LIPID PANEL 2020-05-21 04:29:00 [facility] W/[facility]T [facility] & AUTO 2020-05-21 04:29:00 Vignesh Sheldon [facility] POCT-GLUCOSE METER 2020-05-20 21:37:00 Kaldis, Peter [facility] POCT-GLUCOSE METER 2020-05-20 16:56:00 Roland [facility] POCT-GLUCOSE METER 2020-05-20 12:09:00 Roland [facility] POCT-GLUCOSE METER 2020-05-20 07:19:00 Roland [facility] TROPONIN I 2020-05-20 05:06:00 Roland [facility] BASIC METABOLIC PANEL (7) 2020-05-20 05:06:00 Vignesh Sheldon [facility] MAGNESIUM 2020-05-20 05:06:00 Roland [facility] PHOSPHORUS 2020-05-20 05:06:00 Roland [facility] CBC W/PLT COUNT & AUTO 2020-05-20 05:06:00 Roland [facility] TROPONIN I 2020-05-20 00:05:00 Roland [facility] POCT-GLUCOSE METER 2020-05-19 21:32:00 Roland [facility] POCT-GLUCOSE METER 2020-05-19 19:54:00 Roland [facility] HEMODIALYSIS INPATIENT 2020-05-19 18:47:00 Bakari Velásquez Dev [facility] PLATELET AGGREGATION: 2020-05-19 13:27:00 Nixon Delong [facility] FUNCTION [facility] TROPONIN I 2020-05-19 13:27:00 Roland [facility] XR CHEST 1 VIEW 2020-05-19 12:38:00 Roland [facility]/BEDSIDE [facility] POCT-GLUCOSE METER 2020-05-19 12:18:00 Roland [facility] ECG 12-LEAD 2020-05-19 12:13:22 Unknown, Hl7 [facility] POCT-GLUCOSE METER 2020-05-19 08:55:00 Roland [facility] BASIC METABOLIC PANEL (7) 2020-05-19 04:20:00 Vignesh Sheldon [facility] MAGNESIUM 2020-05-19 04:20:00 Vignesh Sheldon [facility] PHOSPHORUS 2020-05-19 04:20:00 Roland [facility] CBC W/PLT COUNT & AUTO 2020-05-19 04:20:00 Roland [facility] POCT-GLUCOSE METER 2020-05-18 22:22:00 Roland [facility] PLATELET AGGREGATION: 2020-05-18 22:08:00 Nixon Delong [facility] - FUNCTION SCREEN [facility] HEMOGLOBIN A1C 2020-05-18 16:49:00 Roland [facility] XR CHEST 1 VIEW 2020-05-18 16:38:00 Roland [facility] PORTABLE/BEDSIDE Medical Center SARS-COV2/RT-PCR ([facility] & 2020-05-18 16:35:00 Vignesh Sheldon [facility] - REF LABS) [facility] HEPATITIS B SURFACE 2020-05-18 16:35:00 Roland [facility] BASIC METABOLIC PANEL (7) 2020-05-18 16:35:00 Vignesh Sheldon [facility] HEPATIC FUNCTION PANEL 2020-05-18 16:35:00 Roland [facility] PT/APTT 2020-05-18 16:35:00 Roland [facility] TSH/FREE T4 IF INDICATED 2020-05-18 16:35:00 Vignesh Sheldon [facility] MAGNESIUM 2020-05-18 16:35:00 Roland [facility] PHOSPHORUS 2020-05-18 16:35:00 Roland [facility] LIPID PANEL 2020-05-18 16:35:00 Roland [facility] CBC W/PLT COUNT & AUTO 2020-05-18 16:35:00 Roland [facility] POCT-GLUCOSE METER 2020-05-18 15:43:00 Vignesh Sheldon [facility] Plan of Care Planned Activity Planned Date Details Comments Source Future Scheduled 2023-05-[address] [facility]00 (procedure) [code = Medical Center 83592902] Future Scheduled 2020-11-[address] 00:00:00 measurement [facility] (procedure) [code = 02854132] Future Scheduled 2020-05-29 INFLUENZA VACCINE (#1) [facility]00 [code = INFLUENZA Medical Ce nter VACCINE (#1)] Future Scheduled 2020-04-28 INFLU[place]ZA VACCINE [place] [facility] 00:00:00 [code = INFLUENZA VACCINE] Future Scheduled 2017-01-[address] [facility] Test 00:00:00 WELLNESS (YEAR 2 or Medical Center FIRST YEAR if no IPPE) [code = MEDICARE ANNUAL WELLNESS (YEAR 2 or FIRST YEAR if no IPPE)] Future Scheduled 2007 COLONOSCOPY SCREENING [place] [facility] 00:00:00 [code = COLONOSCOPY SCREENING] Future Scheduled 2007 SHINGLES VACCINES (#1) [place] [facility] 00:00:00 [code = SHINGLES VACCINES (#1)] Future Scheduled 1967 DIABETIC EYE EXAM [facility] Test 00:00:00 [code = DIABETIC EYE Medical Center EXAM] Future Scheduled [address] [facility] 00:[facility]:00 examination Medical Center (regime/therapy) [code = 641346521] Future Scheduled 1967 Urine screening for [facility] - Test 00:00:00 protein (procedure) Medical Center [code = 570370591] Future Scheduled [address] [facility] - Test 00:00:00 2-64 YEARS AT RISK (1 Medica l Center of 1 - PPSV23) [code = PNEUMOCOCCAL VACCINE 2-64 YEARS AT RISK (1 of 1 - PPSV23)] Future Scheduled [address] [facility] Test 00:00:00 [facility] colon (procedure) [code = 791033594] Encounters Start End Encounter Admission Attending Care Care Encounter Source Date/Time Date/Time Type Type Clinicians Facility Department ID 2020-05-16 2020-05-16 [facility] [id number] 08:30:00 23:59:00 Encounter Cristian Quinonez [id number] [place] [id number] [place] [id number] 2020-05-16 2020-05-16 Telephone [facility] [id number] 00:00:00 00:00:00 Cristianclay Alejandro MULTISPEC [id number] [place] [id number] [place] [id number] [facility] 2020-05-10 2020-05-10 Telephone [facility] [id number] 00:00:00 00:00:00 Cristian Alejandro MULTISPEC [id number] [place] [id number] [place] [id number] [facility] 2020-05-10 2020-05-10 [facility] [id number] 00:00:00 00:00:00 Sandra Kauffman MULTISPEC [id number] [place] [id number] [place] [id number] [facility] Results Test Description Test Time Test Comments Results Result Comments Source Manual Differential 2020-06-08 16:52:00 Test Item Value Reference Range Interpretation Comme nts % Neutros (test code = 2816) 80 % % Lymphs (test code = 2817) 12 % % Monos (test code = 2818) 3 % % Eos (test code = 2819) 4 % % Atypical Lymphs (test code = 2829) 1 % 0-0 H # Neutros (test code = 2830) 7.68 K/ul 1.78-5.38 H # Lymphs (test code = 2831) 1.15 K/ul 1.32-3.57 L # Monos (test code = 2832) 0.29 K/uL 0.3-0.82 L # Eos (test code = 2834) 0.38 K/uL 0.04-0.54 # Atypical Lymphs (test code = 2858) 0.10 K/uL 0-0 H Total Counted (test code = 1351) 100 WBC Morphology (test code = 487) Normal Giant Platelet (test code = 313) Present Poikilocytes (test code = 966) 2+ moderate Spherocytes (test code = 768) 1+ few Elliptocytes (test code = 962) 1+ few Sylvester Cells (test code = 474) 1+ few Artifact (test code = 3432) Present Platelet Conc (test code = 3438) Adequate EZE (test code = EZE) Dental Scheduling Coordinator ID - jose Kwong comments: Slide comments: Lab Interpretation (test code = Abnormal 77214-5) [facility](CELLAVISION MANUAL DIFF)2020-06-08 16:52:00 Test Item Value Reference Range Interpretation Comments NEUTROPHILS - REL 80 % (CELLAVISION)(BEAKER) (test code = 2816) LYMPHOCYTES - REL 12 % (CELLAVISION)(BEAKER) (test code = 2817) MONOCYTES - REL 3 % (CELLAVISION)(BEAKER) (test code = 2818) EOSINOPHILS - REL 4 % (CELLAVISION)(BEAKER) (test code = 2819) ATYPICAL LYMPHOCYTES - REL 1 % 0-0 H (CELLAVISION)(BEAKER) (test code = 2829) NEUTROPHILS - ABS 7.68 K/ul 1.78-5.38 H (CELLAVISION)(BEAKER) (test code = 2830) LYMPHOCYTES - ABS 1.15 K/ul 1.32-3.57 L (CELLAVISION)(BEAKER) (test code = 2831) MONOCYTES - ABS 0.29 K/uL 0.30-0.82 L (CELLAVISION)(BEAKER) (test code = 2832) EOSINOPHILS - ABS 0.38 K/uL 0.04-0.54 (CELLAVISION)(BEAKER) (test code = 2834) ATYPICAL LYMPHOCYTES - ABS 0.10 K/uL 0.00-0.00 H (CELLAVISION)(BEAKER) (test code = 2858) TOTAL COUNTED (BEAKER) (test code 100 = 1351) WBC MORPHOLOGY (BEAKER) (test Normal code = 487) GIANT PLATELETS (BEAKER) (test Present code = 313) POIKILOCYTES (BEAKER) (test code 2+ moderate = 966) SPHEROCYTES (BEAKER) (test code = 1+ few 768) ELLIPTOCYTES (BEAKER) (test code 1+ few = 962) SYLVESTER CELLS (BEAKER) (test code = 1+ few 474) ARTIFACT (CELLAVISION)(BEAKER) Present (test code = 3432) PLATELET CONCENTRATION Adequate (CELLAVISION)(BEAKER) (test code = 3438) Dental Scheduling Coordinator ID - jose hillCecilioshiv comments: Slide comments:CBC with platelet count + automated [id number] 08:09:00 Test Item Value Reference Range Interpretation Comments WBC (test code = 6690-2) 9.6 3.5- 10.5 K/L RBC (test code = 789-8) 3.62 4.63- 6.08 M/L L MCHC (test code = 786-4) 31.1 32.3- 36.5 GM/DL L Hematocrit (test code = 4544-3) 34.7 % 40.1-51 L MCV (test code = 787-2) 95.9 fL 79-92.2 H MCH (test code = 785-6) 29.8 pg 25.7-32.2 RDW (test code = 788-0) 13.2 % 11.6-14.4 Platelets (test code = 777-3) 474 150- 450 K/CU MM H MPV (test code = 29070-5) 10.2 fL 9.4-12.4 nRBC (test code = 413) 0 0- 0 /100 WBC % Neutros (test code = 429) 66 % % Lymphs (test code = 430) 20 % % Monos (test code = 431) 9 % % Eos (test code = 432) 4 % % Baso (test code = 437) 1 % # Neutros (test code = 670) 6.28 1.78- 5.38 K/L H # Lymphs (test code = 414) 1.88 1.32- 3.57 K/L # Monos (test code = 415) 0.89 0.30- 0.82 K/L H # Eos (test code = 416) 0.42 0.04- 0.54 K/L # Baso (test code = 417) 0.05 0.01- 0.08 K/L Immature Granulocytes-Relative 0 % 0-1 (test code = 2801) Lab Interpretation (test code = Abnormal 86826-9) [facility] with platelet count + manual [id number] 08:09:00 Test Item Value Reference Range Interpretation Comments WBC (test code = 6690-2) 9.6 3.5- 10.5 K/L RBC (test code = 789-8) 3.62 4.63- 6.08 M/L L MCHC (test code = 786-4) 31.1 32.3- 36.5 GM/DL L Hematocrit (test code = 4544-3) 34.7 % 40.1-51 L MCV (test code = 787-2) 95.9 fL 79-92.2 H MCH (test code = 785-6) 29.8 pg 25.7-32.2 RDW (test code = 788-0) 13.2 % 11.6-14.4 Platelets (test code = 777-3) 474 150- 450 K/CU MM H MPV (test code = 92108-6) 10.2 fL 9.4-12.4 nRBC (test code = 413) 0 0- 0 /100 WBC Lab Interpretation (test code = Abnormal 59213-1) [facility] W/PLT COUNT & AUTO [id number] 08:09:00 Test Item Value Reference Range Interpretation Comments WHITE BLOOD CELL COUNT (BEAKER) 9.6 K/ L 3.5-10.5 (test code = 775) RED BLOOD CELL COUNT (BEAKER) 3.62 M/ L 4.63-6.08 L (test code = 761) HEMOGLOBIN (BEAKER) (test code = 10.8 GM/DL 13.7-17.5 L 410) HEMATOCRIT (BEAKER) (test code = 34.7 % 40.1-51.0 L 411) MEAN CORPUSCULAR VOLUME (BEAKER) 95.9 fL 79.0-92.2 H (test code = 753) MEAN CORPUSCULAR HEMOGLOBIN 29.8 pg 25.7-32.2 (BEAKER) (test code = 751) MEAN CORPUSCULAR HEMOGLOBIN CONC 31.1 GM/DL 32.3-36.5 L (BEAKER) (test code = 752) RED CELL DISTRIBUTION WIDTH 13.2 % 11.6-14.4 (BEAKER) (test code = 412) PLATELET COUNT (BEAKER) (test 474 K/CU MM 150-450 H code = 756) MEAN PLATELET VOLUME (BEAKER) 10.2 fL 9.4-12.4 (test code = 754) NUCLEATED RED BLOOD CELLS 0 /100 WBC 0-0 (BEAKER) (test code = 413) NEUTROPHILS RELATIVE PERCENT 66 % (BEAKER) (test code = 429) LYMPHOCYTES RELATIVE PERCENT 20 % (BEAKER) (test code = 430) MONOCYTES RELATIVE PERCENT 9 % (BEAKER) (test code = 431) EOSINOPHILS RELATIVE PERCENT 4 % (BEAKER) (test code = 432) BASOPHILS RELATIVE PERCENT 1 % (BEAKER) (test code = 437) NEUTROPHILS ABSOLUTE COUNT 6.28 K/ L 1.78-5.38 H (BEAKER) (test code = 670) LYMPHOCYTES ABSOLUTE COUNT 1.88 K/ L 1.32-3.57 (BEAKER) (test code = 414) MONOCYTES ABSOLUTE COUNT (BEAKER) 0.89 K/ L 0.30-0.82 H (test code = 415) EOSINOPHILS ABSOLUTE COUNT 0.42 K/ L 0.04-0.54 (BEAKER) (test code = 416) BASOPHILS ABSOLUTE COUNT (BEAKER) 0.05 K/ L 0.01-0.08 (test code = 417) IMMATURE GRANULOCYTES-RELATIVE 0 % 0-1 PERCENT (BEAKER) (test code = 2801) CBC WITH PLATELET COUNT + MANUAL [id number] 08:09:00 Test Item Value Reference Range Interpretation Comments WHITE BLOOD CELL COUNT (BEAKER) 9.6 K/ L 3.5-10.5 (test code = 775) RED BLOOD CELL COUNT (BEAKER) 3.62 M/ L 4.63-6.08 L (test code = 761) HEMOGLOBIN (BEAKER) (test code = 10.8 GM/DL 13.7-17.5 L 410) HEMATOCRIT (BEAKER) (test code = 34.7 % 40.1-51.0 L 411) MEAN CORPUSCULAR VOLUME (BEAKER) 95.9 fL 79.0-92.2 H (test code = 753) MEAN CORPUSCULAR HEMOGLOBIN 29.8 pg 25.7-32.2 (BEAKER) (test code = 751) MEAN CORPUSCULAR HEMOGLOBIN CONC 31.1 GM/DL 32.3-36.5 L (BEAKER) (test code = 752) RED CELL DISTRIBUTION WIDTH 13.2 % 11.6-14.4 (BEAKER) (test code = 412) PLATELET COUNT (BEAKER) (test 474 K/CU MM 150-450 H code = 756) MEAN PLATELET VOLUME (BEAKER) 10.2 fL 9.4-12.4 (test code = 754) NUCLEATED RED BLOOD CELLS 0 /100 WBC 0-0 (BEAKER) (test code = 413) POC-Glucose [id number] 07:41:00 Test Item Value Reference Range Interpretation Comments POC-Glucose Meter (test 121 mg/dL 70-110 H : TE STED AT [facility] code = 1538) [address] [facility], 770 30: Dental Scheduling Coordinator/Techni john ID = [id number] for WHEELER BRENDONNDY Lab Interpretation (test Abnormal code = 40295-5) [facility] [id number] 07:41:00 Test Item Value Reference Range Interpretation Comments POC-GLUCOSE METER 121 mg/dL 70-110 H : [facility] (test code = [facility], 1538) 068[address]: Dental Scheduling Coordinator/Techni john ID = [id number] for ZA VALA, BRENDONNDY POCT-GLUCOSE [id number] 21:25:00 Test Item Value Reference Range Interpretation Comments POC-GLUCOSE METER 135 mg/dL 70-110 H : TESTED A T [facility] [address] (BEAKER) (test code = [facility], 1538) 48788: Dental Scheduling Coordinator/Techni john ID = [id number] for Khadijah Fitzgerald POCT-GLUCOSE [id number] 16:20:00 Test Item Value Reference Range Interpretation Comments POC-GLUCOSE METER 144 mg/dL 70-110 H : TESTED A T [facility] 6720 (BEAKER) (test code = [facility], 1538) 36575: Dental Scheduling Coordinator/Techni john ID = [id number] for CHARLES DIOP POCT-GLUCOSE [id number] 11:17:00 Test Item Value Reference Range Interpretation Comments POC-GLUCOSE METER 146 mg/dL 70-110 H : TESTED A T [facility] 6720 (BEAKER) (test code = [facility], 1538) 26[address]: Dental Scheduling Coordinator/Techni john ID = [id number] for Darcie Lacy (CELLAVISION MANUAL DIFF)2020-06-07 10:40:00 Test Item Value Reference Range Interpretation Comments NEUTROPHILS - REL 77 % (CELLAVISION)(BEAKER) (test code = 2816) LYMPHOCYTES - REL 12 % (CELLAVISION)(BEAKER) (test code = 2817) MONOCYTES - REL 3 % (CELLAVISION)(BEAKER) (test code = 2818) EOSINOPHILS - REL 5 % (CELLAVISION)(BEAKER) (test code = 2819) ATYPICAL LYMPHOCYTES - REL 3 % 0-0 H (CELLAVISION)(BEAKER) (test code = 2829) NEUTROPHILS - ABS 7.78 K/ul 1.78-5.38 H (CELLAVISION)(BEAKER) (test code = 2830) LYMPHOCYTES - ABS 1.21 K/ul 1.32-3.57 L (CELLAVISION)(BEAKER) (test code = 2831) MONOCYTES - ABS 0.30 K/uL 0.30-0.82 (CELLAVISION)(BEAKER) (test code = 2832) EOSINOPHILS - ABS 0.51 K/uL 0.04-0.54 (CELLAVISION)(BEAKER) (test code = 2834) ATYPICAL LYMPHOCYTES - ABS 0.30 K/uL 0.00-0.00 H (CELLAVISION)(BEAKER) (test code = 2858) TOTAL COUNTED (BEAKER) (test code = 100 1351) WBC MORPHOLOGY (BEAKER) (test code Normal = 487) PLT MORPHOLOGY (BEAKER) (test code Normal = 486) POLYCHROMATOPHILLIC RBCS(BEAKER) 1+ few (test code = 478) ANISOCYTOSIS (BEAKER) (test code = 1+ few 961) MICROCYTES (BEAKER) (test code = 1+ few 965) ARTIFACT (CELLAVISION)(BEAKER) Present (test code = 3432) PLATELET CONCENTRATION Increased (CELLAVISION)(BEAKER) (test code = 3438) Dental Scheduling Coordinator ID - Carissa OverholtUser comments: Slide comments:[id number] 10:28:00 Test Item Value Reference Range Interpretation Comments Phosphorus (test code = 3.8 mg/dL 2.3-4.7 2777-1) EZE (test code = EZE) Dental Scheduling Coordinator ID - AAHAMID Lab Interpretation (test Normal code = 99613-4) [facility]2020-09-10 10:28:00 Test Item Value Reference Range Interpretation Comments PHOSPHORUS (BEAKER) (test code = 3.8 mg/dL 2.3-4.7 604) Dental Scheduling Coordinator ID - AAHAMIDBasic Metabolic [id number] 08:07:00 Test Item Value Reference Range Interpretation Comments Sodium (test code = 137 meq/L 034-163 6178-2) Potassium (test code = 4.1 meq/L 3.5-5.1 2823-3) Chloride (test code = 101 meq/L 98-107 2075-0) CO2 (test code = 24 meq/L 22-29 2028-9) BUN (test code = 50 mg/dL 7-21 H 3094-0) Creatinine (test code 4.33 mg/dL 0.57-1.25 H = 2160-0) Glucose (test code = 104 mg/dL 70-105 2345-7) Calcium (test code = 8.1 mg/dL 8.4-10.2 L 92815-3) EGFR (test code = 14 mL/min/1.73 [place] [address]-0) NOT ACCURATE CREATININE CLEARANCE IN PREDICTING GLOMERULAR FILTRATION RATE . ESTIMATED GFR I S NOT APPLICABLE FOR DIALYSIS PATIENTS. EZE (test code = EZE) Dental Scheduling Coordinator ID - EDASI Lab Interpretation Abnormal (test code = 53409-5) [facility]stBASIC METABOLIC [id number] 08:07:00 Test Item Value Reference Range Interpretation Comments SODIUM (BEAKER) 137 meq/L 136-145 (test code = 381) POTASSIUM (BEAKER) 4.1 meq/L 3.5-5.1 (test code = 379) CHLORIDE (BEAKER) 101 meq/L 98-107 (test code = 382) CO2 (BEAKER) (test 24 meq/L 22-29 code = 355) BLOOD UREA NITROGEN 50 mg/dL 7-21 H (BEAKER) (test code = 354) CREATININE (BEAKER) 4.33 mg/dL 0.57-1.25 H (test code = 358) GLUCOSE RANDOM 104 mg/dL 70-105 (BEAKER) (test code = 652) CALCIUM (BEAKER) 8.1 mg/dL 8.4-10.2 L (test code = 697) EGFR (BEAKER) (test 14 mL/min/1.73 ESTIMA ANA GFR IS code = 1092) sq m NOT ACCURATE CREATININE CLEARANCE IN PREDICTING GLOMERULAR FILTRATION RATE . ESTIMATED GFR I S NOT APPLICABLE FOR DIALYSIS PATIEN TS. Dental Scheduling Coordinator ID - [id number] 07:57:00 Test Item Value Reference Range Interpretation Comments Magnesium (test code = 2.0 mg/dL 1.6-2.6 65250-3) EZE (test code = EZE) Dental Scheduling Coordinator ID - EDASI Lab Interpretation (test Normal code = 72696-4) [facility]stMAGN[facility]IUM2020-09-10 07:57:00 Test Item Value Reference Range Interpretation Comments MAGNESIUM (BEAKER) (test code = 2.0 mg/dL 1.6-2.6 627) Dental Scheduling Coordinator ID - EDASIPOCT-GLUCOSE [id number] 07:52:00 Test Item Value Reference Range Interpretation Comments POC-GLUCOSE METER 126 mg/dL 70-110 H : TESTED A T [facility] 6720 (BEAKER) (test code = [facility] [place], 1538) [address]: Dental Scheduling Coordinator/Techni john ID = [id number] for AMELIA MCPHERSONClarence SHAGUFTAWaqas CBC WITH PLATELET COUNT + MANUAL [id number] 05:35:00 Test Item Value Reference Range Interpretation Comments WHITE BLOOD CELL COUNT (BEAKER) 10.1 K/ L 3.5-10.5 (test code = 775) RED BLOOD CELL COUNT (BEAKER) 3.46 M/ L 4.63-6.08 L (test code = 761) HEMOGLOBIN (BEAKER) (test code = 10.5 GM/DL 13.7-17.5 L 410) HEMATOCRIT (BEAKER) (test code = 33.0 % 40.1-51.0 L 411) MEAN CORPUSCULAR VOLUME (BEAKER) 95.4 fL 79.0-92.2 H (test code = 753) MEAN CORPUSCULAR HEMOGLOBIN 30.3 pg 25.7-32.2 (BEAKER) (test code = 751) MEAN CORPUSCULAR HEMOGLOBIN CONC 31.8 GM/DL 32.3-36.5 L (BEAKER) (test code = 752) RED CELL DISTRIBUTION WIDTH 13.2 % 11.6-14.4 (BEAKER) (test code = 412) PLATELET COUNT (BEAKER) (test 448 K/CU MM 150-450 code = 756) MEAN PLATELET VOLUME (BEAKER) 10.4 fL 9.4-12.4 (test code = 754) NUCLEATED RED BLOOD CELLS 0 /100 WBC 0-0 (BEAKER) (test code = 413) RAD, CHEST, 1 VIEW, NON [id number] 04:49:00Reason for exam:->POD1 pericardial window, evaluate for interval changeShould this be performed at the bedside?->YesFINAL REPORT CLINICAL INDICATION: Postop Comparison: 06/06/2020 The cardiomediastinal contours are stable. The lung volumes remain low. Central pulmonary vascular congestion and bilateral parenchymal opacities are similar within variation of acquisition technique. A tiny left apical pneumothorax is unchanged. Signed: Amberly Aranda MDRmanort Verified Date/Time: 06/07/2020 04:49:46 XR chest 1 view portable / [id number] 04:49:00 Interface, External Ris In - 06/07/2020 4:52 AM CDTFINAL REPORT CLINICAL INDICATION: Postop Comparison: 06/06/2020 The cardiomediastinal contours are stable. The lung volumes remain low. Central pulmonary vascular congestion and bilateral parenchymal opacities are similar withinvariation of acquisition technique. A tiny left apical pneumothorax is unchanged. Signed: Amberly Aranda MDReport Verified Date/Time: 06/07/2020 04:49:46 [facility] [id number] 21:22:00 Test Item Value Reference Range Interpretation Comments POC-GLUCOSE METER 168 mg/dL 70-110 H : TESTED A T [facility] 6720 (BEAKER) (test code = [facility] Z[facility], 1538) 884[address]: Dental Scheduling Coordinator/Techni john ID = [id number] for MARCI ROD POCT-GLUCOSE [id number] 16:48:00 Test Item Value Reference Range Interpretation Comments POC-GLUCOSE METER 115 mg/dL 70-110 H : TESTED A T [facility] 6720 (BEAKER) (test code = [facility], 1538) 990[address]: Dental Scheduling Coordinator/Techni john ID = [id number] for CHARLES DIOP BASIC METABOLIC [id number] 12:41:00 Test Item Value Reference Range Interpretation Comments SODIUM (BEAKER) 137 meq/L 136-145 (test code = 381) POTASSIUM (BEAKER) 4.1 meq/L 3.5-5.1 (test code = 379) CHLORIDE (BEAKER) 103 meq/L 98-107 (test code = 382) CO2 (BEAKER) (test 25 meq/L 22-29 code = 355) BLOOD UREA NITROGEN 46 mg/dL 7-21 H (BEAKER) (test code = 354) CREATININE (BEAKER) 4.11 mg/dL 0.57-1.25 H (test code = 358) GLUCOSE RANDOM 144 mg/dL 70-105 H (BEAKER) (test code = 652) CALCIUM (BEAKER) 8.2 mg/dL 8.4-10.2 L (test code = 697) EGFR (BEAKER) (test 15 mL/min/1.73 ESTIMA ANA GFR IS code = 1092) sq m NOT ACCURATE CREATININE CLEARANCE IN PREDICTING GLOMERULAR FILTRATION RATE . ESTIMATED GFR I S NOT APPLICABLE FOR DIALYSIS PATIEN TS. Dental Scheduling Coordinator ID - PIAYA LPOCT-GLUCOSE [id number] 11:43:00 Test Item Value Reference Range Interpretation Comments POC-GLUCOSE METER 190 mg/dL 70-110 H : TESTED A T [facility] 6720 (BEAKER) (test code = [facility], 1538) 083[address]: Dental Scheduling Coordinator/Techni john ID = [id number] for CHARLES DIOP POCT-GLUCOSE [id number] 07:31:00 Test Item Value Reference Range Interpretation Comments POC-GLUCOSE METER 135 mg/dL 70-110 H : [facility] ([facility] (test code = [facility], 1538) 827[address]: Dental Scheduling Coordinator/Techni john ID = [id number] for Do thomasolivierjono Sourav CBC W/PLT COUNT & AUTO [id number] 07:02:00 Test Item Value Reference Range Interpretation Comments WHITE BLOOD CELL COUNT (BEAKER) 10.2 K/ L 3.5-10.5 (test code = 775) RED BLOOD CELL COUNT (BEAKER) 3.34 M/ L 4.63-6.08 L (test code = 761) HEMOGLOBIN (BEAKER) (test code = 10.3 GM/DL 13.7-17.5 L 410) HEMATOCRIT (BEAKER) (test code = 31.6 % 40.1-51.0 L 411) MEAN CORPUSCULAR VOLUME (BEAKER) 94.6 fL 79.0-92.2 H (test code = 753) MEAN CORPUSCULAR HEMOGLOBIN 30.8 pg 25.7-32.2 (BEAKER) (test code = 751) MEAN CORPUSCULAR HEMOGLOBIN CONC 32.6 GM/DL 32.3-36.5 (BEAKER) (test code = 752) RED CELL DISTRIBUTION WIDTH 13.3 % 11.6-14.4 (BEAKER) (test code = 412) PLATELET COUNT (BEAKER) (test 441 K/CU MM 150-450 code = 756) MEAN PLATELET VOLUME (BEAKER) 10.1 fL 9.4-12.4 (test code = 754) NUCLEATED RED BLOOD CELLS 0 /100 WBC 0-0 (BEAKER) (test code = 413) NEUTROPHILS RELATIVE PERCENT 72 % (BEAKER) (test code = 429) LYMPHOCYTES RELATIVE PERCENT 16 % (BEAKER) (test code = 430) MONOCYTES RELATIVE PERCENT 8 % (BEAKER) (test code = 431) EOSINOPHILS RELATIVE PERCENT 3 % (BEAKER) (test code = 432) BASOPHILS RELATIVE PERCENT 1 % (BEAKER) (test code = 437) NEUTROPHILS ABSOLUTE COUNT 7.34 K/ L 1.78-5.38 H (BEAKER) (test code = 670) LYMPHOCYTES ABSOLUTE COUNT 1.67 K/ L 1.32-3.57 (BEAKER) (test code = 414) MONOCYTES ABSOLUTE COUNT (BEAKER) 0.77 K/ L 0.30-0.82 (test code = 415) EOSINOPHILS ABSOLUTE COUNT 0.35 K/ L 0.04-0.54 (BEAKER) (test code = 416) BASOPHILS ABSOLUTE COUNT (BEAKER) 0.05 K/ L 0.01-0.08 (test code = 417) IMMATURE GRANULOCYTES-RELATIVE 0 % 0-1 PERCENT (BEAKER) (test code = 2801) RAD, CHEST, 1 VIEW, NON [id number] 05:45:00Reason for exam:->POD1 pericardial window, evaluate for interval changeShould this be performed at the bedside?->YesFINAL REPORT Chest one view. Clinical history: POD1 pericardial window, evaluate for interval change Comparison: Chest radiograph 06/05/2020. Technique: A single frontal view of the chest was obtained. Findings:The patient is status post median sternotomy. There has been interval removal of left chest tube and pericardial drain.The cardiomediastinal contours are stable. There are improved bilateral congestive changes. There are bibasilar airspace opacities which may represent atelectasis and/or pneumonia. A small left pleural effusion cannot be excluded. There is a tiny left apical pneumothorax. Signed: Miguel Doe MDReport Verified Date/Time: 06/06/2020 05:45:02 POCT-GLUCOSE [id number] 23:15:00 Test Item Value Reference Range Interpretation Comments POC-GLUCOSE METER 118 mg/dL 70-110 H : TESTED A T [facility] 6720 (BEAKER) (test code = [facility] [place], 1538) 388[address]: Dental Scheduling Coordinator/Techni john ID = [id number] for PE RALES, MARCI POCT-GLUCOSE [id number] 18:06:00 Test Item Value Reference Range Interpretation Comments POC-GLUCOSE METER 111 mg/dL 70-110 H : TESTED A T [facility] 6720 (BEAKER) (test code = [facility] Shiv [facility], 1538) 57300: Dental Scheduling Coordinator/Techni john ID = [id number] for Louann Means Calcium, [id number] 14:37:00 Test Item Value Reference Range Interpretation Comments Calcium, Ion (test code = 1993-3) 1.10 mmol/L 1.12-1.27 L pH, Blood (test code = 77875-3) 7.45 Lab Interpretation (test code = Abnormal 61524-1) [facility]st[facility]CI[facility], [id number] 14:37:00 Test Item Value Reference Range Interpretation Comments CALCIUM IONIZED (BEAKER) (test 1.10 mmol/L 1.12-1.27 L code = 698) PH, BLOOD (BEAKER) (test code = 7.45 1810) POCT-GLUCOSE [id number] 14:00:00 Test Item Value Reference Range Interpretation Comments POC-GLUCOSE METER 180 mg/dL 70-110 H : TESTED A T [facility] 6720 (BEAKER) (test code = [facility] Shiv [facility], 1538) 769[address]: Dental Scheduling Coordinator/Techni john ID = [id number] for Louann Means BASIC METABOLIC [id number] 07:14:00 Test Item Value Reference Range Interpretation Comments SODIUM (BEAKER) 136 meq/L 136-145 (test code = 381) POTASSIUM (BEAKER) 4.3 meq/L 3.5-5.1 Specimen slightly (test code = 379) hemolyzed CHLORIDE (BEAKER) 100 meq/L 98-107 (test code = 382) CO2 (BEAKER) (test 26 meq/L 22-29 code = 355) BLOOD UREA NITROGEN 82 mg/dL 7-21 H (BEAKER) (test code = 354) CREATININE (BEAKER) 5.93 mg/dL 0.57-1.25 H Specimen slightly (test code = 358) hemolyzed GLUCOSE RANDOM 151 mg/dL 70-105 H (BEAKER) (test code = 652) CALCIUM (BEAKER) 7.9 mg/dL 8.4-10.2 L (test code = 697) EGFR (BEAKER) (test 10 mL/min/1.73 ESTIMA ANA GFR IS code = 1092) sq m NOT ACCURATE CREATININE CLEARANCE IN PREDICTING GLOMERULAR FILTRATION RATE . ESTIMATED GFR I S NOT APPLICABLE FOR DIALYSIS PATIEN TS. Dental Scheduling Coordinator ID - JIMBO [id number] 07:08:00 Test Item Value Reference Range Interpretation Comments MAGNESIUM (BEAKER) 2.2 mg/dL 1.6-2.6 Specimen slightly (test code = 627) hemolyzed Dental Scheduling Coordinator ID - JIMBO [id number] 07:08:00 Test Item Value Reference Range Interpretation Comments PHOSPHORUS (BEAKER) 5.3 mg/dL 2.3-4.7 H Specimen slightly (test code = 604) hemolyzed Dental Scheduling Coordinator ID - JIMBO LCBC (Hemogram only)2020-06-05 06:46:00 Test Item Value Reference Range Interpretation Comments WBC (test code = 6690-2) 14.6 3.5- 10.5 K/L H RBC (test code = 789-8) 3.13 4.63- 6.08 M/L L MCHC (test code = 786-4) 32.2 32.3- 36.5 GM/DL L Hematocrit (test code = 4544-3) 30.1 % 40.1-51 L MCV (test code = 787-2) 96.2 fL 79-92.2 H MCH (test code = 785-6) 31.0 pg 25.7-32.2 RDW (test code = 788-0) 13.4 % 11.6-14.4 Platelets (test code = 777-3) 444 150- 450 K/CU MM MPV (test code = 93925-1) 10.9 fL 9.4-12.4 nRBC (test code = 413) 0 0- 0 /100 WBC Lab Interpretation (test code = Abnormal 07953-8) [facility])2020-06-05 06:46:00 Test Item Value Reference Range Interpretation Comments WHITE BLOOD CELL COUNT (BEAKER) 14.6 K/ L 3.5-10.5 H (test code = 775) RED BLOOD CELL COUNT (BEAKER) 3.13 M/ L 4.63-6.08 L (test code = 761) HEMOGLOBIN (BEAKER) (test code = 9.7 GM/DL 13.7-17.5 L 410) HEMATOCRIT (BEAKER) (test code = 30.1 % 40.1-51.0 L 411) MEAN CORPUSCULAR VOLUME (BEAKER) 96.2 fL 79.0-92.2 H (test code = 753) MEAN CORPUSCULAR HEMOGLOBIN 31.0 pg 25.7-32.2 (BEAKER) (test code = 751) MEAN CORPUSCULAR HEMOGLOBIN CONC 32.2 GM/DL 32.3-36.5 L (BEAKER) (test code = 752) RED CELL DISTRIBUTION WIDTH 13.4 % 11.6-14.4 (BEAKER) (test code = 412) PLATELET COUNT (BEAKER) (test 444 K/CU MM 150-450 code = 756) MEAN PLATELET VOLUME (BEAKER) 10.9 fL 9.4-12.4 (test code = 754) NUCLEATED RED BLOOD CELLS 0 /100 WBC 0-0 (BEAKER) (test code = 413) POCT-GLUCOSE [id number] 06:17:00 Test Item Value Reference Range Interpretation Comments POC-GLUCOSE METER 126 mg/dL 70-110 H : TESTED A T [facility] 6720 (BEAKER) (test code = [facility], 1538) 677[address]: Dental Scheduling Coordinator/Techni john ID = [id number] for Sharyn Cotton (contra ct) RAD, CHEST, 1 VIEW, NON [id number] 02:20:00Reason for exam:->POD1 pericardial window, evaluate for interval changeShould this be performed at the bedside?->YesFINAL REPORT RAD, CHEST, 1 VIEW, NON DEPT INDICATION: POD1 pericardial window, evaluate for interval change COMPARISON: Prior day's exam FINDINGS: Portable frontal view of the chest. IMPRESSION: Support Lines: No significant change. Lungs and pleura: Unchanged airspace and pleural opacities. New small left apical pneumothorax.Heart and mediastinum: Stable contours. Additional findings: None. Signed: Jules Bullard MDReport Verified Date/Time: 06/05/2020 02:20:42 Prepare [id number] 23:54:00 Test Item Value Reference Range Interpretation Comments CROSSMATCH (test code = 2264) COMPATIBLE Unit ABO (test code = O Pos 0536803) UNIT NUMBER (test code = [id number] 934-0) Status (test code = 1217195) TX_TIMEINCHART Blood Bank Product (test code RED BLOOD CELLS = 2263) PRODUCT CODE (test code = S8548P34 933-2) [facility]PO[facility] [id number] 16:06:00 Test Item Value Reference Range Interpretation Comments POC-GLUCOSE METER 199 mg/dL 70-110 H : TESTED A T [facility] 6720 (BEAKER) (test code = [facility], 1538) 99124: Dental Scheduling Coordinator/Techni john ID = [id number] for Beth Sanders POCT-GLUCOSE [id number] 13:04:00 Test Item Value Reference Range Interpretation Comments POC-GLUCOSE METER 238 mg/dL 70-110 H : TESTED A T [facility] 6720 (BEAKER) (test code = [facility], 1538) 30634: Dental Scheduling Coordinator/Techni john ID = [id number] for Loyd Sandersn POCT-GLUCOSE [id number] 08:13:00 Test Item Value Reference Range Interpretation Comments POC-GLUCOSE METER 173 mg/dL 70-110 H : TESTED A T [facility] 6720 (BEAKER) (test code = [facility], 1538) [id number]: Dental Scheduling Coordinator/Techni john ID = [id number] for Loyd Sandersn BASIC METABOLIC [id number] 04:42:00 Test Item Value Reference Range Interpretation Comments SODIUM (BEAKER) 135 meq/L 136-145 L (test code = 381) POTASSIUM (BEAKER) 4.6 meq/L 3.5-5.1 (test code = 379) CHLORIDE (BEAKER) 99 meq/L 98-107 (test code = 382) CO2 (BEAKER) (test 23 meq/L 22-29 code = 355) BLOOD UREA NITROGEN 63 mg/dL 7-21 H (BEAKER) (test code = 354) CREATININE (BEAKER) 5.21 mg/dL 0.57-1.25 H (test code = 358) GLUCOSE RANDOM 185 mg/dL 70-105 H (BEAKER) (test code = 652) CALCIUM (BEAKER) 8.0 mg/dL 8.4-10.2 L (test code = 697) EGFR (BEAKER) (test 11 mL/min/1.73 ESTIMA ANA GFR IS code = 1092) sq m NOT ACCURATE CREATININE CLEARANCE IN PREDICTING GLOMERULAR FILTRATION RATE . ESTIMATED GFR I S NOT APPLICABLE FOR DIALYSIS PATIEN TS. Dental Scheduling Coordinator ID - KIMBERLY [id number] 04:40:00 Test Item Value Reference Range Interpretation Comments MAGNESIUM (BEAKER) (test code = 2.0 mg/dL 1.6-2.6 627) Dental Scheduling Coordinator ID - KIMBERLY [facility] W/PLT COUNT & AUTO [id number] 04:19:00 Test Item Value Reference Range Interpretation Comments WHITE BLOOD CELL COUNT (BEAKER) 16.5 K/ L 3.5-10.5 H (test code = 775) RED BLOOD CELL COUNT (BEAKER) 3.19 M/ L 4.63-6.08 L (test code = 761) HEMOGLOBIN (BEAKER) (test code = 9.8 GM/DL 13.7-17.5 L 410) HEMATOCRIT (BEAKER) (test code = 30.8 % 40.1-51.0 L 411) MEAN CORPUSCULAR VOLUME (BEAKER) 96.6 fL 79.0-92.2 H (test code = 753) MEAN CORPUSCULAR HEMOGLOBIN 30.7 pg 25.7-32.2 (BEAKER) (test code = 751) MEAN CORPUSCULAR HEMOGLOBIN CONC 31.8 GM/DL 32.3-36.5 L (BEAKER) (test code = 752) RED CELL DISTRIBUTION WIDTH 13.2 % 11.6-14.4 (BEAKER) (test code = 412) PLATELET COUNT (BEAKER) (test 421 K/CU MM 150-450 code = 756) MEAN PLATELET VOLUME (BEAKER) 10.9 fL 9.4-12.4 (test code = 754) NUCLEATED RED BLOOD CELLS 0 /100 WBC 0-0 (BEAKER) (test code = 413) NEUTROPHILS RELATIVE PERCENT 85 % (BEAKER) (test code = 429) LYMPHOCYTES RELATIVE PERCENT 8 % (BEAKER) (test code = 430) MONOCYTES RELATIVE PERCENT 6 % (BEAKER) (test code = 431) EOSINOPHILS RELATIVE PERCENT 0 % (BEAKER) (test code = 432) BASOPHILS RELATIVE PERCENT 0 % (BEAKER) (test code = 437) NEUTROPHILS ABSOLUTE COUNT 14.06 K/ L 1.78-5.38 H (BEAKER) (test code = 670) LYMPHOCYTES ABSOLUTE COUNT 1.38 K/ L 1.32-3.57 (BEAKER) (test code = 414) MONOCYTES ABSOLUTE COUNT (BEAKER) 0.97 K/ L 0.30-0.82 H (test code = 415) EOSINOPHILS ABSOLUTE COUNT 0.00 K/ L 0.04-0.54 L (BEAKER) (test code = 416) BASOPHILS ABSOLUTE COUNT (BEAKER) 0.03 K/ L 0.01-0.08 (test code = 417) IMMATURE GRANULOCYTES-RELATIVE 0 % 0-1 PERCENT (BEAKER) (test code = 2801) RAD, CHEST, 1 VIEW, NON [id number] 03:20:00Reason for exam:->POD1 pericardial window, evaluate for interval changeShould this be performed at the bedside?->YesFINAL REPORT CLINICAL INDICATION: Postop Comparison: 06/03/2020 The cardiomediastinal contours are stable. The lung volumes remain low. Central pulmonary vascular congestion and bilateral parenchymal and pleural opacities are similar within variation of acquisition technique. There is no pneumothorax. Support lines are stable. Signed: Amberly Aranda MDReport Verified Date/Time: 06/04/2020 03:20:20 POCT-GLUCOSE [id number] 17:50:00 Test Item Value Reference Range Interpretation Comments POC-GLUCOSE METER 172 mg/dL 70-110 H : TESTED A T [facility] 6720 (BEAKER) (test code [facility], = 1538) [address]: Dental Scheduling Coordinator/Techni john ID = [id number] for MEGAN NOSA, SARBJIT Blood gas, [id number] 17:22:00 Test Item Value Reference Range Interpretation Comments pH, Arterial (test code = 2744-1) 7.41 7.35-7.45 pCO2, Arterial (test code = 40 35- 45 mmHg 2018-8) pO2, Arterial (test code = 118 80- 90 mmHg H 2703-7) O2 Sat, Arterial (test code = 98.3 % 96-97 H 2708-6) HCO3, Arterial (test code = 24 mmol/L 21-29 1959-4) Base Excess, Arterial (test code -0.2 mmol/L -2-3 = 1925-7) Patient Temperature (test code = 36.8 C 8310-5) FIO2 (test code = 1819) 40 % Lab Interpretation (test code = Abnormal 94544-6) [facility], [id number] 17:22:00 Test Item Value Reference Range Interpretation Comments PH ARTERIAL (BEAKER) (test code = 7.41 7.35-7.45 383) PCO2 ARTERIAL (BEAKER) (test code 40 mmHg 35-45 = 384) PO2 ARTERIAL (BEAKER) (test code 118 mmHg 80-90 H = 385) O2 SATURATION ARTERIAL (BEAKER) 98.3 % 96.0-97.0 H (test code = 386) HCO3 ARTERIAL (BEAKER) (test code 24 mmol/L -29 = 388) BASE EXCESS ARTERIAL (BEAKER) -0.2 mmol/L -2.0-3.0 (test code = 387) PATIENT TEMPERATURE (BEAKER) 36.8 C (test code = 1818) FIO2 (BEAKER) (test code = 1819) 40.0 % Electrocardiogram, [id number] 15:58:49Interface, External Ris In - 06/03/2020 3:58 PM CDTVentricular Rate 74 BPMAtrial Rate 74 BPMP-R Interval 166 msQRS Duration 94 msQ-T Interval 420 msQTC Calculation(Bazett) 466 msP [place] 28 degreesR [place] 38 degreesT [place] [address] and T wave abnormalityProlonged QTAbnormal ECGNo previous ECGs availableConfirmed by MD Arvizu Roberto ([id number]) on 06/03/2020 3:58:44 [facility] [id number] 14:39:00 Test Item Value Reference Range Interpretation Comments PH ARTERIAL (BEAKER) (test code = 7.37 7.35-7.45 383) PCO2 ARTERIAL (BEAKER) (test code 45 mmHg 35-45 = 384) PO2 ARTERIAL (BEAKER) (test code 117 mmHg 80-90 H = 385) O2 SATURATION ARTERIAL (BEAKER) 98.2 % 96.0-97.0 H (test code = 386) HCO3 ARTERIAL (BEAKER) (test code 25 mmol/L 21-29 = 388) BASE EXCESS ARTERIAL (BEAKER) -0.5 mmol/L -2.0-3.0 (test code = 387) PATIENT TEMPERATURE (BEAKER) 36.5 C (test code = 1818) FIO2 (BEAKER) (test code = 1819) 40.0 % BASIC METABOLIC [id number] 12:25:00 Test Item Value Reference Range Interpretation Comments SODIUM (BEAKER) 136 meq/L 136-145 (test code = 381) POTASSIUM (BEAKER) 4.3 meq/L 3.5-5.1 (test code = 379) CHLORIDE (BEAKER) 100 meq/L 98-107 (test code = 382) CO2 (BEAKER) (test 24 meq/L 22-29 code = 355) BLOOD UREA NITROGEN 52 mg/dL 7-21 H (BEAKER) (test code = 354) CREATININE (BEAKER) 5.03 mg/dL 0.57-1.25 H (test code = 358) GLUCOSE RANDOM 162 mg/dL 70-105 H (BEAKER) (test code = 652) CALCIUM (BEAKER) 8.7 mg/dL 8.4-10.2 (test code = 697) EGFR (BEAKER) (test 12 mL/min/1.73 ESTIMA ANA GFR IS code = 1092) sq m NOT ACCURATE CREATININE CLEARANCE IN PREDICTING GLOMERULAR FILTRATION RATE . ESTIMATED GFR I S NOT APPLICABLE FOR DIALYSIS PATIEN TS. Dental Scheduling Coordinator ID Kyle COLBERT [id number] 12:22:00 Test Item Value Reference Range Interpretation Comments PHOSPHORUS (BEAKER) (test code = 6.5 mg/dL 2.3-4.7 H 604) Dental Scheduling Coordinator TRACE COLBERT [id number] 12:22:00 Test Item Value Reference Range Interpretation Comments MAGNESIUM (BEAKER) (test code = 2.0 mg/dL 1.6-2.6 627) Dental Scheduling Coordinator TRACE COLBERT FLactic Acid, [id number] 12:16:00 Test Item Value Reference Range Interpretation Comments Lactate, Art (test code = 1.2 mmol/L 0.5-2.2 2874) EZE (test code = EZE) Dental Scheduling Coordinator ID Kyle COLBERT F Lab Interpretation (test Normal code = 44494-4) [facility]stLACTIC ACID, [id number] 12:16:00 Test Item Value Reference Range Interpretation Comments LACTATE BLOOD ARTERIAL (2) 1.2 mmol/L 0.5-2.2 (BEAKER) (test code = 2874) Dental Scheduling Coordinator ID Kyle COLBERT [id number] 11:59:00 Test Item Value Reference Range Interpretation Comments Fibrinogen (test code = 3255-7) 524 mg/dl 225-434 H Lab Interpretation (test code = Abnormal 36830-7) [facility] Hill[facility]stProthrombin time/[id number] 11:59:00 Test Item Value Reference Range Interpretation Comments Protime (test code = 15.7 11.9- 14.2 H 5902-2) seconds INR (test code = 1.29 <=5.90 6301-6) EZE (test code = EZE) Effective 02/23/2019: PT Reference Range ChangeNew: 11.9-14.2 Previous: 11.7-14.7 RECOMMENDED COUMADIN/WARFARIN INR THERAPY RANGESSTANDARD DOSE: 2.0-3.0 Includes: PROPHYLAXIS for venous thrombosis, systemic embolization; TREATMENT for venous thrombosis and/or pulmonary embolus.HIGH RISK: Target INR is 2.5-3.5 for patients wiht mechanical heart valves. Lab Interpretation Abnormal (test code = 31180-2) [facility] HillcrestaPTT2020-09-06 11:59:00 Test Item Value Reference Range Interpretation Comments PTT (test code = 95383-0) 29.1 22.5- 36.0 seconds Lab Interpretation (test code = Normal 31511-3) [facility] Hill[facility]stPROTHROMBIN TIME/[id number] 11:59:00 Test Item Value Reference Range Interpretation Comments PROTIME (BEAKER) (test code = 15.7 seconds 11.9-14.2 H 759) INR (BEAKER) (test code = 370) 1.29 <=5.90 Effective 02/23/2019: PT Reference Range ChangeNew: 11.9-14.2 Previous: 11.7- 14.7RECOMMENDED COUMADIN/WARFARIN INR THERAPY RANGESSTANDARD DOSE: 2.0-3.0 Includes: PROPHYLAXIS for venous thrombosis, systemic embolization; TREATMENT for venous thrombosis and/or pulmonary embolus.HIGH RISK: Target INR is2.5-3.5 for patients wiht mechanical heart valves.[id number] 11:59:00 Test Item Value Reference Range Interpretation Comments FIBRINOGEN LEVEL (BEAKER) (test 524 mg/dl 225-434 H code = 658) [id number] 11:59:00 Test Item Value Reference Range Interpretation Comments PARTIAL THROMBOPLASTIN TIME 29.1 seconds 22.5-36.0 (BEAKER) (test code = 760) CBC (HEMOGRAM ONLY)2020-06-03 11:50:00 Test Item Value Reference Range Interpretation Comments WHITE BLOOD CELL COUNT (BEAKER) 13.5 K/ L 3.5-10.5 H (test code = 775) RED BLOOD CELL COUNT (BEAKER) 3.14 M/ L 4.63-6.08 L (test code = 761) HEMOGLOBIN (BEAKER) (test code = 9.6 GM/DL 13.7-17.5 L 410) HEMATOCRIT (BEAKER) (test code = 30.3 % 40.1-51.0 L 411) MEAN CORPUSCULAR VOLUME (BEAKER) 96.5 fL 79.0-92.2 H (test code = 753) MEAN CORPUSCULAR HEMOGLOBIN 30.6 pg 25.7-32.2 (BEAKER) (test code = 751) MEAN CORPUSCULAR HEMOGLOBIN CONC 31.7 GM/DL 32.3-36.5 L (BEAKER) (test code = 752) RED CELL DISTRIBUTION WIDTH 13.2 % 11.6-14.4 (BEAKER) (test code = 412) PLATELET COUNT (BEAKER) (test 410 K/CU MM 150-450 code = 756) MEAN PLATELET VOLUME (BEAKER) 11.2 fL 9.4-12.4 (test code = 754) NUCLEATED RED BLOOD CELLS 0 /100 WBC 0-0 (BEAKER) (test code = 413) RAD, CHEST, 1 VIEW, NON [id number] 11:37:00Reason for exam:->s/p pericardial window, evaluate for pneumothoraxShould this be performed at the bedside?->YesFINAL REPORT Chest, one view HISTORY: Status post pericardial window Comparison: 06/01/2020 Findings: Lungs: Mild bilateral airspace disease, similar to previous examination. Heart: The cardiac silhouette is moderately enlarged, similar to the prior study. Pleura: Small bilateral pleural effusions are noted. No pneumothorax is appreciated. Bones: Unremarkable. Lines/tubes: Interval insertion of a left chest tube, which terminates near the left pulmonary apex. Endotracheal tube has been inserted, which appears in satisfactory position. Signed: Damian Soria MDReport Verified Date/Time: 06/03/2020 11:37:45 Reading Location: [address] Transitional Reading Room CALCIUM, [id number] 10:43:00 Test Item Value Reference Range Interpretation Comments CALCIUM IONIZED (BEAKER) (test 1.12 mmol/L 1.12-1.27 code = 698) PH, BLOOD (BEAKER) (test code = 7.31 1810) BLOOD GAS, [id number] 10:43:00 Test Item Value Reference Range Interpretation Comments PH ARTERIAL (BEAKER) (test code = 7.31 7.35-7.45 L 383) PCO2 ARTERIAL (BEAKER) (test code 55 mmHg 35-45 H = 384) PO2 ARTERIAL (BEAKER) (test code = 101 mmHg 80-90 H 385) O2 SATURATION ARTERIAL (BEAKER) 97.0 % 96.0-97.0 (test code = 386) HCO3 ARTERIAL (BEAKER) (test code 27 mmol/L 21-29 = 388) BASE EXCESS ARTERIAL (BEAKER) 0.1 mmol/L -2.0-3.0 (test code = 387) PATIENT TEMPERATURE (BEAKER) (test 36.9 C code = 1818) FIO2 (BEAKER) (test code = 1819) 50.0 % BASIC METABOLIC [id number] 08:08:00 Test Item Value Reference Range Interpretation Comments SODIUM (BEAKER) 135 meq/L 136-145 L (test code = 381) POTASSIUM (BEAKER) 4.1 meq/L 3.5-5.1 (test code = 379) CHLORIDE (BEAKER) 98 meq/L 98-107 (test code = 382) CO2 (BEAKER) (test 24 meq/L 22-29 code = 355) BLOOD UREA NITROGEN 45 mg/dL 7-21 H (BEAKER) (test code = 354) CREATININE (BEAKER) 4.69 mg/dL 0.57-1.25 H (test code = 358) GLUCOSE RANDOM 163 mg/dL 70-105 H (BEAKER) (test code = 652) CALCIUM (BEAKER) 8.5 mg/dL 8.4-10.2 (test code = 697) EGFR (BEAKER) (test 13 mL/min/1.73 ESTIMA ANA GFR IS code = 1092) sq m NOT ACCURATE CREATININE CLEARANCE IN PREDICTING GLOMERULAR FILTRATION RATE . ESTIMATED GFR I S NOT APPLICABLE FOR DIALYSIS PATIEN TS. Dental Scheduling Coordinator ID - SAYRA [id number] 07:02:00 Test Item Value Reference Range Interpretation Comments MAGNESIUM (BEAKER) (test code = 2.1 mg/dL 1.6-2.6 627) Dental Scheduling Coordinator ID - SAYRA FType and screen, [id number] 05:52:00 Test Item Value Reference Range Interpretation Comments ABO/RH AUTOMATED (BEAKER) (test O POSITIVE code = 2260) Ab Scrn (test code = 890-4) NEGATIVE [facility]ARS-CoV2/RT-PCR (Asymptomatic ONLY)2020-06-03 00:00:00 Test Item Value Reference Range Interpretation Comments SARS-COV2/RT-PCR Negative Not Detected, (test code = Negative, See 50028-9) external report for linked test SARS-COV-2 [facility] PERFORMING LAB (test code = 94594-5) EZE (test code = Negative results do not EZE) preclude SARS-CoV-2 infection and should not be used as [...] of the Act. Fact Sheet for Healthcare Providers:https://www.SingWho/Documents/Xper t%20Xpress%20SARS%20CoV- 2/Fact%20Sheets/3023802 %40CAOQ-TZN-5%20HEALTHCA RE%20PROVIDERS%20FACT%20 SHEET.pdf Fact Sheet for Healthcare Patients:https://www.Baboom/Documents/Xpert %20Xpress%20SARS%20CoV-2 /Fact%20Sheets/3023801% 99DWES-FAO-5%20PATIENT%2 0FACT%20SHEET.pdf Performing Laboratory:[place] [address], [place] [address] [place], [place] [address]ARS-COV2/RT-PCR ([facility])2020-06-03 00:00:00 Test Item Value Reference Range Interpretation Comments SARS-COV2/RT-PCR (test code Negative Not Detected, Negative, = 3393855) See external report for linked test SARS-COV-[address] [facility] (test code = 7673061) Negative results do not preclude SARS-CoV-2 infection and should not be used as the sole basis for patient management decisions. Negative results must be combined with clinical observations, patient history, and epidemiological information. A false negative result may occur if a specimen is improperly collected, transported or handled.The limit of detection for this assay is 250 copies/mL.This SARS CoV-2 test is a rapid, real-time RT-PCR test intended for the qualitative detection of nucleic acid from SARS-CoV-2 in a nasopharyngeal swab specimen collected from individuals suspected of COVID-19 by their healthcare provider.This test has not been Food and Drug [...] is revoked under Section 564(g) of the Act.Fact Sheet for Healthcare Pro viders:https://www.HashParade/Documents/Xpert%20Xpress%20SARS%20CoV-2/Fact%20Sh eets/3023802%07REUW-ZJE-8%20HEALTHCARE%20PROVIDERS%20FACT%20SHEET.pdfFact Sheet for Healthcare Patients:https://www.Yoyocard/Documents/Xpert%20Xpress%20SARS%20CoV-2/Fact%20Sheets/3023801%20SARS-COV -2%20PATIENT%20FACT%20SHEET.pdfPerforming Laboratory:[address], [place] [address]UZSEOJSUPOND [id number] 22:41:40SDanica gar RN 06/02/2020 11:14 PMCompleted 3 hours of HD via left upper arm AVF with net fluid removed of 1.8 liters. UF goal was 3 liters. UF had to be turned off due to complaint of chest discomfort, which was relieved by Metoprolol 50 mg po (scheduled med). Patient reported relief from chest discomfort and denied any other discomfort through the remainder of treatment. Last vital signs at end of treatment were: Temp 97.8 F, BP= 118/77, HR 79/min RR=17/min. Report given to Primary senior courtroom clerk Results Component Value Date WBC 11.5 (H) 06/02/2020 HGB 9.0 (L) 06/02/2020 HCT 28.2 (L) 06/02/2020 MCV 95.6 (H) 06/02/2020 PLT 364 06/02/2020 Lab Results Component Value Date GLUCOSE 131 (H) 06/02/2020 CALCIUM 8.1 (L) 06/02/2020 NA 133 (L) 06/02/2020 K 4.0 06/02/2020 CO2 26 06/02/2020 CL 96 (L) 06/02/2020 BUN 60 (H) 06/02/2020 CREATININE 5.60 (H) 06/02/2020 Results for LONNY DAMICO ( ) as of 06/02/2020 22:45 Ref. Range 05/18/2020 16:35 HBsAg Screen Latest Ref Range: Nonreactive NonreactiveCH[facility]– WatsonvillePOCT-GLUCOSE METER 2020-06-02 16:29:00 Test Item Value Reference Range Interpretation Comments POC-GLUCOSE METER 194 mg/dL 70-110 H : TESTED A T [facility] 6720 (ALICIA) (test code = [place], 1538) [address]: Dental Scheduling Coordinator/Techni john ID = [id number] for CHARLES DIOP CT, CHEST, WITHOUT [id number] 16:02:00Unlisted Reason for Exam - Click Yes and Enter Reason Below->NoFINAL REPORT CT Chest without contrast History: Dyspnea on exertion Comparison: none Technique: serial axial imaging was performed without intravenous contrast as per departmental protocol. Multiplanar images are reconstructed and reviewed when indicated. This CT examination is performed using one or more of the following dose reduction techniques: Automated exposure control, adjustment of the mA and /or kV according to patient size, and/or use of iterative reconstruction technique. Findings:No mediastinal lymphadenopathy. No definite hilar enlargement. Normal size heart. Moderate pericardial effusion. No thoracic aortic aneurysm. Normal caliber of main pulmonary trunk. Patent central airways. Small to moderate size bilateral pleural effusions. No pneumothoraxis appreciated. Mild bilateral lower lobe compressive atelectasis. 8 mm right middle lobe pulmonary nodule is noted on axial image 30. The lungs are otherwise clear. No significant findings in the partially imaged abdomen. No aggressive osseous lesion. Median sternotomy changes. Appearance of thethoracic spine is suggestive of underlying ankylosing spondylitis. Impression: 1. Small to moderate sized bilateral pleural effusions.2. Moderate pericardial effusion.3. 8 mm right middle lobe pulmonary nodule. Follow-up recommendations are as follows: Comparison with any available outside hospital cross-sectional imaging is recommended. If none are available and the patient is at high risk for bronch ogenic carcinoma, a follow-up chest CT (low-dose technique and thin axial reconstructions) should beobtained in 6 - 12 months, then subsequent CT should be obtained at 18 - 24 months, to document stability. If the patient is at low risk of bronchogenic carcinoma, an initial follow-up chest CT should be obtained in 6 - 12 months, then subsequent CT considered at 18 - 24 months, to document stability. Signed: Damian Soria MDReport Verified Date/Time: 06/02/2020 16:02:43 Reading Location: [facility] B1 C013T Transitional Reading Room CT chest without IV [id number] 16:02:00Interface, External Ris In - 06/02/2020 4:[address] Chest without contrast History: Dyspnea on exertion Comparison: none Technique: serial axial imaging was performed without intravenous contrast as per departmental protocol. Multiplanar images are reconstructedand reviewed when indicated. This CT examination is performed using one or more of the following dose reduction techniques: Automated exposure control, adjustment of the mA and /or kV according to patient size, and/or use of iterative reconstruction technique. Findings:No mediastinal lymphadenopathy. No definite hilar enlargement. Normal size heart. Moderate pericardial effusion. No thoracicaortic aneurysm. Normal caliber of main pulmonary trunk. Patent central airways. Small to moderate size bilateral pleural effusions. No pneumothorax is appreciated. Mild bilateral lower lobe compressive atelectasis. 8 mm right middle lobe pulmonary nodule is noted on axial image 30. The lungs areotherwise clear. No significant findings in the partially imaged abdomen. No aggressive osseous l esion. Median sternotomy changes. Appearance of the thoracic spine is suggestive of underlying ankylosing spondylitis. Impression: 1. Small to moderate sized bilateral pleural effusions.2. Moderate pericardial effusion.3. 8 mm right middle lobe pulmonary nodule. Follow-up recommendations are as follows: Comparison with any available outside hospital cross-sectional imaging is recommended. If none areavailable and the patient is at high risk for bronchogenic carcinoma, a follow-up chest CT (low-dosetechnique and thin axial reconstructions) should be obtained in 6 - 12 months, then subsequent CT should be obtained at 18 - 24 months, to document stability. If the patient is at low risk of bronchogenic carcinoma, an initial follow-up chest CT should be obtained in 6 - 12 months, then subsequent CT considered at 18 - 24 months, to document stability. 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 Sheldon Summary Circumferential pericardial effusionnoted; largest posteriorly and posterolaterally at 24mm. The following present: respirophasic variation in mitral inflow to suggest increased intrapericardial effusion . Previous Study Compared to prior study on 05/29/2020: Increase in size of pericardial effusion, now large without overt evidence of in creased intra-pericardial pressures. Signature Findings Rhythm/BP Regular sinus rhythm during the exam. Left Ventricle The left ventricle is chamber size (by PSLAX dimension) is normal (male - LVIDd 4.2-5.8cm) . Normal LV wall thickness. All of the LV segments contract normally . Estimated LVEF by qualitative assessment is normal (>60%) . Left Atrium LA is adequately visualized. LA size is normal . Right Ventricle The right ventricle is not well visualized but appears small on subcostal views. Right Atrium The right atrium is not well visualized. No evidence of diastolic collapse in subcostal view. Atrial Septum The interatrial septum is adequately visualized. Normal interatrial septum by available views. Aortic Valve Normal AoV structure and function by limited views and Doppler. MitralValve Normal MV structure. Borderline mitral valve inflow respiratory variation. Tricuspid Valve TV structure is normal. No evidence of tricuspid regurgitation. Unable to estimate peak systolic PA pressure; inadequate TR velocity signal. Aorta Aortic root size (SInus of Valsalva diameter) is normal . Proximal ascending aorta size is not visualized . Pericardium Circumferential pericardial effusion noyed; largest posteriorly and posterolaterally at 24mm. The following present: respirophasic variation in mitral inflow to suggest increased intrapericardial effusion . IVC/SVC/PA/PV/Pleural The inferior vena cava size is increased with respiratory collapse. The estimated RA pressure by IVC dynamics 11-15mmHg . Chambers/Structures Left Atrium LA Dimension:4.24 cm Left Ventricle LVIDd: 5.18 cm LVIDs: 3.13 cm LV Septum Diastolic: 0.96 cm LV Septum Systolic: 1.62 cm LV FS: 39.6 % LV PW Diastolic: 0.94 cm LV PW Systolic: 1.99 cm LVOT Diameter: 2.07 cm Aorta Ao Root S of [place] 3.25 cm Doppler/Quantitative Measurements Mitral Valve MV Haroon. Peak: Tissue Doppler E' Septal Velocity: 0.84 m/s LVOT LVOT Diameter: 2.07 cm LVOT Area: 3.37 cm^2[facility] [place]villePOCT-GLUCOSE [id number] 11:34:00 Test Item Value Reference Range Interpretation Comments POC-GLUCOSE METER 148 mg/dL 70-110 H : TESTED A T [facility] 6720 (BEAKER) (test code = [facility], 1538) [address]: Dental Scheduling Coordinator/Techni john ID = [id number] for CHARLES DIOP POCT-GLUCOSE [id number] 07:43:00 Test Item Value Reference Range Interpretation Comments POC-GLUCOSE METER 124 mg/dL 70-110 H : TESTED A T [facility] 6720 (BEAKER) (test code = [facility], 1538) 85[address]: Dental Scheduling Coordinator/Techni john ID = [id number] for CHARLES DIOP BASIC METABOLIC [id number] 06:35:00 Test Item Value Reference Range Interpretation Comments SODIUM (BEAKER) 133 meq/L 136-145 L (test code = 381) POTASSIUM (BEAKER) 4.0 meq/L 3.5-5.1 (test code = 379) CHLORIDE (BEAKER) 96 meq/L 98-107 L (test code = 382) CO2 (BEAKER) (test 26 meq/L 22-29 code = 355) BLOOD UREA NITROGEN 60 mg/dL 7-21 H (BEAKER) (test code = 354) CREATININE (BEAKER) 5.60 mg/dL 0.57-1.25 H (test code = 358) GLUCOSE RANDOM 131 mg/dL 70-105 H (BEAKER) (test code = 652) CALCIUM (BEAKER) 8.1 mg/dL 8.4-10.2 L (test code = 697) EGFR (BEAKER) (test 10 mL/min/1.73 ESTIMA ANA GFR IS code = 1092) sq m NOT ACCURATE CREATININE CLEARANCE IN PREDICTING GLOMERULAR FILTRATION RATE . ESTIMATED GFR I S NOT APPLICABLE FOR DIALYSIS PATIEN TS. Dental Scheduling Coordinator ID - JIMBO [id number] 06:25:00 Test Item Value Reference Range Interpretation Comments MAGNESIUM (BEAKER) (test code = 2.1 mg/dL 1.6-2.6 627) Dental Scheduling Coordinator ID - JIMBO LCBC W/PLT COUNT & AUTO [id number] 04:28:00 Test Item Value Reference Range Interpretation Comments WHITE BLOOD CELL COUNT (BEAKER) 11.5 K/ L 3.5-10.5 H (test code = 775) RED BLOOD CELL COUNT (BEAKER) 2.95 M/ L 4.63-6.08 L (test code = 761) HEMOGLOBIN (BEAKER) (test code = 9.0 GM/DL 13.7-17.5 L 410) HEMATOCRIT (BEAKER) (test code = 28.2 % 40.1-51.0 L 411) MEAN CORPUSCULAR VOLUME (BEAKER) 95.6 fL 79.0-92.2 H (test code = 753) MEAN CORPUSCULAR HEMOGLOBIN 30.5 pg 25.7-32.2 (BEAKER) (test code = 751) MEAN CORPUSCULAR HEMOGLOBIN CONC 31.9 GM/DL 32.3-36.5 L (BEAKER) (test code = 752) RED CELL DISTRIBUTION WIDTH 12.9 % 11.6-14.4 (BEAKER) (test code = 412) PLATELET COUNT (BEAKER) (test 364 K/CU MM 150-450 code = 756) MEAN PLATELET VOLUME (BEAKER) 11.2 fL 9.4-12.4 (test code = 754) NUCLEATED RED BLOOD CELLS 0 /100 WBC 0-0 (BEAKER) (test code = 413) NEUTROPHILS RELATIVE PERCENT 75 % (BEAKER) (test code = 429) LYMPHOCYTES RELATIVE PERCENT 15 % (BEAKER) (test code = 430) MONOCYTES RELATIVE PERCENT 8 % (BEAKER) (test code = 431) EOSINOPHILS RELATIVE PERCENT 1 % (BEAKER) (test code = 432) BASOPHILS RELATIVE PERCENT 0 % (BEAKER) (test code = 437) NEUTROPHILS ABSOLUTE COUNT 8.62 K/ L 1.78-5.38 H (BEAKER) (test code = 670) LYMPHOCYTES ABSOLUTE COUNT 1.67 K/ L 1.32-3.57 (BEAKER) (test code = 414) MONOCYTES ABSOLUTE COUNT (BEAKER) 0.94 K/ L 0.30-0.82 H (test code = 415) EOSINOPHILS ABSOLUTE COUNT 0.14 K/ L 0.04-0.54 (BEAKER) (test code = 416) BASOPHILS ABSOLUTE COUNT (BEAKER) 0.05 K/ L 0.01-0.08 (test code = 417) IMMATURE GRANULOCYTES-RELATIVE 0 % 0-1 PERCENT (BEAKER) (test code = 2801) POCT-GLUCOSE [id number] 21:21:00 Test Item Value Reference Range Interpretation Comments POC-GLUCOSE METER 127 mg/dL 70-110 H : TESTED A T [facility] 6720 (BEAKER) (test code = [facility], 1538) 00692: Dental Scheduling Coordinator/Techni john ID = [id number] for PE RALES, MARCI RAD, CHEST, 1 VIEW, NON [id number] 20:04:00Reason for exam:->short of breathShould this be performed at the bedside?->YesFINAL REPORT RAD, CHEST, 1 VIEW, NON DEPT INDICATION: short of breath COMPARISON: May 30, 2020 FINDINGS: Portable frontal view of the chest. IMPRESSION: Support Lines: None Lungs and pleura: Left greater than right airspace disease has increased suggesting worsening pulmonary edema but infection with superimposed atelectasis not excluded. Ifiht-zn-sbcwxtdf left pleural effusion suspected. Small right pleural effusion not excluded. No pneumothorax.Heart and mediastinum:Stable cardiomegaly. Additional findings: Median sternotomy changes. Signed: Jules Bullard [facility] Verified Date/Time: 06/01/2020 20:04:25 POCT- GLUCOSE [id number] 19:57:00 Test Item Value Reference Range Interpretation Comments POC-GLUCOSE METER 156 mg/dL 70-110 H : TESTED A T [facility] 6720 (BEAKER) (test code = [facility], 1538) 48325: Dental Scheduling Coordinator/Techni john ID = [id number] for RUSS PARIS POCT-GLUCOSE [id number] 16:47:00 Test Item Value Reference Range Interpretation Comments POC-GLUCOSE METER 159 mg/dL 70-110 H : TESTED A T [facility] 6720 (BEAKER) (test code = [facility], 1538) 67110: Dental Scheduling Coordinator/Techni john ID = [id number] for AMELIA CHARLES WEBB POCT-GLUCOSE [id number] 11:31:00 Test Item Value Reference Range Interpretation Comments POC-GLUCOSE METER 158 mg/dL 70-110 H : TESTED A T [facility] 6720 (BEAKER) (test code = [facility], 1538) 35988: Dental Scheduling Coordinator/Techni john ID = [id number] for CHARLES DIOP POCT-GLUCOSE [id number] 07:35:00 Test Item Value Reference Range Interpretation Comments POC-GLUCOSE METER 133 mg/dL 70-110 H : TESTED A T [facility] 6720 (BEAKER) (test code = [facility], 1538) 47852: Dental Scheduling Coordinator/Techni john ID = [id number] for CHARLES DIOP BASIC METABOLIC [id number] 07:02:00 Test Item Value Reference Range Interpretation Comments SODIUM (BEAKER) 134 meq/L 136-145 L (test code = 381) POTASSIUM (BEAKER) 3.9 meq/L 3.5-5.1 (test code = 379) CHLORIDE (BEAKER) 97 meq/L 98-107 L (test code = 382) CO2 (BEAKER) (test 27 meq/L 22-29 code = 355) BLOOD UREA NITROGEN 44 mg/dL 7-21 H (BEAKER) (test code = 354) CREATININE (BEAKER) 4.45 mg/dL 0.57-1.25 H (test code = 358) GLUCOSE RANDOM 148 mg/dL 70-105 H (BEAKER) (test code = 652) CALCIUM (BEAKER) 8.5 mg/dL 8.4-10.2 (test code = 697) EGFR (BEAKER) (test 13 mL/min/1.73 ESTIMA ANA GFR IS code = 1092) sq m NOT ACCURATE CREATININE CLEARANCE IN PREDICTING GLOMERULAR FILTRATION RATE . ESTIMATED GFR I S NOT APPLICABLE FOR DIALYSIS PATIEN TS. Dental Scheduling Coordinator ID - JIMBO [id number] 06:59:00 Test Item Value Reference Range Interpretation Comments MAGNESIUM (BEAKER) (test code = 2.0 mg/dL 1.6-2.6 627) Dental Scheduling Coordinator ID - JIMBO LPOCT-GLUCOSE [id number] 20:36:00 Test Item Value Reference Range Interpretation Comments POC-GLUCOSE METER 173 mg/dL 70-110 H : TESTED A T [facility] 6720 (BEAKER) (test code = [facility], 1538) 12231: Dental Scheduling Coordinator/Techni john ID = [id number] for Khadijah Fitzgerald POCT-GLUCOSE [id number] 16:11:00 Test Item Value Reference Range Interpretation Comments POC-GLUCOSE METER 152 mg/dL 70-110 H : TESTED A T [facility] 6720 (BEAKER) (test code = [facility], 1538) 83027: Dental Scheduling Coordinator/Techni john ID = [id number] for CHELE COONEY POCT-GLUCOSE [id number] 13:35:00 Test Item Value Reference Range Interpretation Comments POC-GLUCOSE METER 85 mg/dL 70-110 : TESTED A T [facility] 6720 (BEAKER) (test code = [facility], 1538) 30609: Dental Scheduling Coordinator/Techni john ID = [id number] for KHADIJAH GLYNN POCT-GLUCOSE [id number] 08:09:00 Test Item Value Reference Range Interpretation Comments POC-GLUCOSE METER 129 mg/dL 70-110 H : TESTED A T [facility] 6720 (BEAKER) (test code = [facility] Sh[facility], 1538) 72860: Dental Scheduling Coordinator/Techni john ID = [id number] for CHELE COONEY BASIC METABOLIC [id number] 07:56:00 Test Item Value Reference Range Interpretation Comments SODIUM (BEAKER) 135 meq/L 136-145 L (test code = 381) POTASSIUM (BEAKER) 4.3 meq/L 3.5-5.1 (test code = 379) CHLORIDE (BEAKER) 98 meq/L 98-107 (test code = 382) CO2 (BEAKER) (test 25 meq/L 22-29 code = 355) BLOOD UREA NITROGEN 55 mg/dL 7-21 H (BEAKER) (test code = 354) CREATININE (BEAKER) 5.12 mg/dL 0.57-1.25 H (test code = 358) GLUCOSE RANDOM 137 mg/dL 70-105 H (BEAKER) (test code = 652) CALCIUM (BEAKER) 8.9 mg/dL 8.4-10.2 (test code = 697) EGFR (BEAKER) (test 11 mL/min/1.73 ESTIMA ANA GFR IS code = 1092) sq m NOT ACCURATE CREATININE CLEARANCE IN PREDICTING GLOMERULAR FILTRATION RATE . ESTIMATED GFR I S NOT APPLICABLE FOR DIALYSIS PATIEN TS. Dental Scheduling Coordinator ID - [id number] 07:34:00 Test Item Value Reference Range Interpretation Comments MAGNESIUM (BEAKER) (test code = 2.1 mg/dL 1.6-2.6 627) Dental Scheduling Coordinator ID - [id number] (HEMOGRAM ONLY)2020-05-31 06:09:00 Test Item Value Reference Range Interpretation Comments WHITE BLOOD CELL COUNT (BEAKER) 11.5 K/ L 3.5-10.5 H (test code = 775) RED BLOOD CELL COUNT (BEAKER) 3.46 M/ L 4.63-6.08 L (test code = 761) HEMOGLOBIN (BEAKER) (test code = 10.7 GM/DL 13.7-17.5 L 410) HEMATOCRIT (BEAKER) (test code = 33.5 % 40.1-51.0 L 411) MEAN CORPUSCULAR VOLUME (BEAKER) 96.8 fL 79.0-92.2 H (test code = 753) MEAN CORPUSCULAR HEMOGLOBIN 30.9 pg 25.7-32.2 (BEAKER) (test code = 751) MEAN CORPUSCULAR HEMOGLOBIN CONC 31.9 GM/DL 32.3-36.5 L (BEAKER) (test code = 752) RED CELL DISTRIBUTION WIDTH 12.7 % 11.6-14.4 (BEAKER) (test code = 412) PLATELET COUNT (BEAKER) (test 336 K/CU MM 150-450 code = 756) MEAN PLATELET VOLUME (BEAKER) 11.1 fL 9.4-12.4 (test code = 754) NUCLEATED RED BLOOD CELLS 0 /100 WBC 0-0 (BEAKER) (test code = 413) POCT-GLUCOSE [id number] 21:30:00 Test Item Value Reference Range Interpretation Comments POC-GLUCOSE METER 111 mg/dL 70-110 H : TESTED A T [facility] 6720 (BEAKER) (test code = [facility] [place], 1538) 42379: Dental Scheduling Coordinator/Techni john ID = [id number] for MARCELLE RICH ALEN POCT-GLUCOSE [id number] 16:34:00 Test Item Value Reference Range Interpretation Comments POC-GLUCOSE METER 122 mg/dL 70-110 H : TESTED A T [facility] 6720 (BEAKER) (test code = [facility], 1538) 41818: Dental Scheduling Coordinator/Techni john ID = [id number] for Do Sourav weber POCT-GLUCOSE [id number] 11:46:00 Test Item Value Reference Range Interpretation Comments POC-GLUCOSE METER 146 mg/dL 70-110 H : TESTED A T [facility] 6720 (BEAKER) (test code = [facility], 1538) 73953: Dental Scheduling Coordinator/Techni john ID = [id number] for Sourav Villavicencio RAD, CHEST, 1 VIEW, NON [id number] 09:15:00Reason for exam:->short of breathShould this be performed at the bedside?->YesFINAL REPORT RAD, CHEST, 1 VIEW, NON DEPT INDICATION: short of breath COMPARISON: Prior day's exam FINDINGS: Portable frontal view of the chest. IMPRESSION: Limited by underpenetration.Support Lines: Right IJ central venous catheter and thoracic drainage tubes have been removed. Lungs and pleura: Interstitial congestion again noted bilaterally. Small left effusion. No pneumothorax.Heart and mediastinum: Stable contours. Stable surgical changes.Additional findings: None. Signed: JR Bell Robert MDReport Verified Date/Time: 05/30/2020 09:15:42 Reading Location: [facility] Radiology Reading Room POCT- GLUCOSE [id number] 07:07:00 Test Item Value Reference Range Interpretation Comments POC-GLUCOSE METER 138 mg/dL 70-110 H : TESTED A T [facility] 6720 (BEAKER) (test code = [facility], 1538) 57735: Dental Scheduling Coordinator/Techni john ID = [id number] for Sourav Villavicencio BASIC METABOLIC [id number] 06:46:00 Test Item Value Reference Range Interpretation Comments SODIUM (BEAKER) 134 meq/L 136-145 L (test code = 381) POTASSIUM (BEAKER) 4.3 meq/L 3.5-5.1 (test code = 379) CHLORIDE (BEAKER) 100 meq/L 98-107 (test code = 382) CO2 (BEAKER) (test 23 meq/L 22-29 code = 355) BLOOD UREA NITROGEN 40 mg/dL 7-21 H (BEAKER) (test code = 354) CREATININE (BEAKER) 4.15 mg/dL 0.57-1.25 H (test code = 358) GLUCOSE RANDOM 121 mg/dL 70-105 H (BEAKER) (test code = 652) CALCIUM (BEAKER) 8.5 mg/dL 8.4-10.2 (test code = 697) EGFR (BEAKER) (test 15 mL/min/1.73 ESTIMA ANA GFR IS code = 1092) sq m NOT ACCURATE CREATININE CLEARANCE IN PREDICTING GLOMERULAR FILTRATION RATE . ESTIMATED GFR I S NOT APPLICABLE FOR DIALYSIS PATIEN TS. Dental Scheduling Coordinator ID - [id number] 06:39:00 Test Item Value Reference Range Interpretation Comments MAGNESIUM (BEAKER) (test code = 2.0 mg/dL 1.6-2.6 627) Dental Scheduling Coordinator ID - EDASICBC (HEMOGRAM ONLY)2020-05-30 06:11:00 Test Item Value Reference Range Interpretation Comments WHITE BLOOD CELL COUNT (BEAKER) 12.4 K/ L 3.5-10.5 H (test code = 775) RED BLOOD CELL COUNT (BEAKER) 3.02 M/ L 4.63-6.08 L (test code = 761) HEMOGLOBIN (BEAKER) (test code = 9.5 GM/DL 13.7-17.5 L 410) HEMATOCRIT (BEAKER) (test code = 29.5 % 40.1-51.0 L 411) MEAN CORPUSCULAR VOLUME (BEAKER) 97.7 fL 79.0-92.2 H (test code = 753) MEAN CORPUSCULAR HEMOGLOBIN 31.5 pg 25.7-32.2 (BEAKER) (test code = 751) MEAN CORPUSCULAR HEMOGLOBIN CONC 32.2 GM/DL 32.3-36.5 L (BEAKER) (test code = 752) RED CELL DISTRIBUTION WIDTH 12.6 % 11.6-14.4 (BEAKER) (test code = 412) PLATELET COUNT (BEAKER) (test 258 K/CU MM 150-450 code = 756) MEAN PLATELET VOLUME (BEAKER) 11.2 fL 9.4-12.4 (test code = 754) NUCLEATED RED BLOOD CELLS 0 /100 WBC 0-0 (BEAKER) (test code = 413) POCT-GLUCOSE [id number] 21:08:00 Test Item Value Reference Range Interpretation Comments POC-GLUCOSE METER 88 mg/dL 70-110 : TESTED A T [facility] 6720 (BEAKER) (test code = [facility], 1538) 98801: Dental Scheduling Coordinator/Techni john ID = [id number] for ALEN CHAPMAN POCT-GLUCOSE [id number] 16:49:00 Test Item Value Reference Range Interpretation Comments POC-GLUCOSE METER 161 mg/dL 70-110 H : TESTED A T [facility] 6720 (Modus eDiscoveryAKER) (test code = [facility], 1538) 53209: Dental Scheduling Coordinator/Techni john ID = [id number] for JOSIANE OLLIEMalickKRISTEN 2D Echo W/Doppler(CW/PW/Color)2020-05-29 15:53:53Ejection FractionSLEH ECHO HEARTLAB MKCKESSON CPACSInterface, External Ris In - 05/29/2020 3:54 PM C DTTransthoracic Echocardiography Report (TTE) Demographics Patient Name LONNY DAMICO Date of Study 05/29/2020 L Gender Male Visit Number [id number] Race Unknown Room Number 1019 Number Date of 1955 Referring Physician Vignesh Sheldon MD Age 65 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 LV endocardium is partially visualized with IV ultrasound enhancing agent. The LV apex is incompletely visualized due to foreshortening. 1. The left ventricle is chamber size (by vol index) is normal (male - LVED vol - 34-74ml/m2).Mild concentric LV hypertrophy. All of the LV segments contract normally . Estimated LVEF by qualitative assessment is normal (55-60%) . Diastolic function is indeterminate. 2. RV is not well seen. Inthe limited views, the RV appears to be normal in size. Global RV systolic function is depressed . TAPSE 1.2 cm. 3. Based on the PLAX diameter, the LA is dilated. In the limited views the RA appears to be dilated. 4. TV structure is normal. Tpmw-mx-eodkujnb tricuspid regurgitation. Peak systolic pressure may be underestimated; partial TR signal. Estimated peak systolic pressure is at least 35-40 mmHg. The estimated RA pressure by IVC dynamics 11-15 mm Hg. 5. A moderate posterior, posterolateral pericardial effusion is present . Greatest pericardial end-diastolic size is approx. 1.6 cm. No echocardiographic evidence of increased intrapericardial pressures. Previous Study No prior exam availablefor comparison. Signature Findings Left Ventricle Technically difficult study. LV endocardium is partially visualized with IV ultrasound enhancing agent. The LV apex is incompletely visualized due to foreshortening. The left ventricle is chamber size (by vol index) is normal (male - LVED vol - 34-74ml/m2). Mild concentric LV hypertrophy. All of the LV segments contract normally . Estimated LVEF by qualitative assessment is normal (55-60%) . Diastolic function is indeterminate. Left Atrium Imaging is suboptimal for accurate measurement of the LA volumes. Based on the PLAX diameter, the LA is dilated. Right Ventricle RV is not well seen. In the limited views, the RV appears to be normal in size. Global RV systolic function is depressed . TAPSE 1.2 cm. Right Atrium RA is partially visualized. In the limited views the RA a ppears to be dilated. Aortic Valve Trileaflet aortic valve. Mild AoV cusp thickening. No evidence of aortic stenosis. No evidence of aortic regurgitation. Mitral Valve Mild MV leaflet thickening. Trace mitral regurgitation. Tricuspid Valve TV structure is normal. Ytzs-nx-btdxioeo tricuspid regurgitation. Peak systolic pressure may be underestimated; partialTR signal. Estimated peak systolic pressure is at least 35-40 mmHg. PulmonicValve Normal PV structure and function by limited views and Doppler.Aorta Aortic root size (SInus of Valsalva diameter) is normal . Proximal ascending aorta size is normal . Pericardium A moderate posterior, posterolateral pericardial effusion is present . Greatest pericardial end-diastolic size is approx. 1.6 cm. No 2D evidence of RV diastolic collapse. Doppler evaluation for respiratory variation is unreliable. HR 80, BP123/72. IVC/SVC/PA/PV/Pleural The estimated RA pressureby IVC dynamics 11-15 mm Hg. Chambers/Structures Left Atrium LA Dimension: 5.14 cm LA Area: 25.74 cm^2 Left Ventricle LVIDd: 5.32 cm LV Septum Diastolic: 1.29 cmLV PW Diastolic: 1.33 cm LVEDV Castrejon's:112.81 ml LVESV Castrejon's:47.19 ml LVEF Castrejon's: 58.2 % LVEDVI: 43 ml/m^2 LVESVI: 18 ml/m^2 LVOT Diameter: 2.2 cm Right Ventricle RV Systolic Pressure: 40 mmHg Aorta Ao Root S of [place].: 3.57 cm Ascending Aorta: 3.4 cm Doppler/Quantitative Measurements Mitral Valve MV Peak E-Wave: 0.87 m/s MV Peak A-Wave: 0.65 m/s P1/2t: 60.4 msec E/A Ratio: 1.34 Peak Gradient: 3.03 mmHg Deceleration Time: 208.4 msec MV Area (PHT): 3.64 cm^2 MV Haroon. Peak: Tissue Doppler E' Septal Velocity: 0.9 m/s E/E': 9 E' Lateral Velocity: 0.9 m/s LVOT Peak Velocity: 1.15 m/s Peak Gradient: 5.32 mmHg Mean Velocity: 0.66 m/s Mean Gradient: 2.25 mmHg LVOT Diameter: 2.2 cm LVOT VTI: 16.46 cm LVOT Area: 3.8 cm^2 LVOT SV:62.54 ml LVOT CO: 5 l/min LVOT CI: 1.92 l/min/m^2 Tricuspid Valve Estimated RAP: 15 mmHg TR Velocity: 2.5 m/s TR Gradient: 25 mmHg Pulmonic Valve Estimated PASP: 40 mmHgUC [facility]stPOCT-GLUCOSE [id number] 12:43:00 Test Item Value Reference Range Interpretation Comments POC-GLUCOSE METER 143 mg/dL 70-110 H : TESTED A T [facility] 6720 (BEAKER) (test code = [facility], 1538) 93984: Dental Scheduling Coordinator/Techni john ID = [id number] for GUTIERREZ SOLER POCT-GLUCOSE [id number] 09:33:00 Test Item Value Reference Range Interpretation Comments POC-GLUCOSE METER 144 mg/dL 70-110 H : TESTED A T [facility] 6720 (BEAKER) (test code = [facility], 1538) 72461: Dental Scheduling Coordinator/Techni john ID = [id number] for RAFY STEVENS B-type Natriuretic Factor (BNP)2020-05-29 07:02:00 Test Item Value Reference Range Interpretation Comments BNP (test code = 18591-4) 491 pg/mL 0-100 H EZE (test code = EZE) Dental Scheduling Coordinator ID - DB Lab Interpretation (test Abnormal code = 85565-9) [facility]stB-TYPE NATRIURETIC FACTOR (BNP)2020-05-29 07:02:00 Test Item Value Reference Range Interpretation Comments B-TYPE NATRIURETIC PEPTIDE (BEAKER) 491 pg/mL 0-100 H (test code = 700) Dental Scheduling Coordinator ID - DBBASIC METABOLIC [id number] 06:59:00 Test Item Value Reference Range Interpretation Comments SODIUM (BEAKER) 135 meq/L 136-145 L (test code = 381) POTASSIUM (BEAKER) 4.3 meq/L 3.5-5.1 (test code = 379) CHLORIDE (BEAKER) 101 meq/L 98-107 (test code = 382) CO2 (BEAKER) (test 23 meq/L 22-29 code = 355) BLOOD UREA NITROGEN 45 mg/dL 7-21 H (BEAKER) (test code = 354) CREATININE (BEAKER) 4.60 mg/dL 0.57-1.25 H (test code = 358) GLUCOSE RANDOM 206 mg/dL 70-105 H (BEAKER) (test code = 652) CALCIUM (BEAKER) 8.3 mg/dL 8.4-10.2 L (test code = 697) EGFR (BEAKER) (test 13 mL/min/1.73 ESTIMA ANA GFR IS code = 1092) sq m NOT ACCURATE CREATININE CLEARANCE IN PREDICTING GLOMERULAR FILTRATION RATE . ESTIMATED GFR I S NOT APPLICABLE FOR DIALYSIS PATIEN TS. Dental Scheduling Coordinator ID - [id number] 06:56:00 Test Item Value Reference Range Interpretation Comments MAGNESIUM (BEAKER) (test code = 2.0 mg/dL 1.6-2.6 627) Dental Scheduling Coordinator ID - EDASICBC (HEMOGRAM ONLY)2020-05-29 06:45:00 Test Item Value Reference Range Interpretation Comments WHITE BLOOD CELL COUNT (BEAKER) 10.4 K/ L 3.5-10.5 (test code = 775) RED BLOOD CELL COUNT (BEAKER) 3.03 M/ L 4.63-6.08 L (test code = 761) HEMOGLOBIN (BEAKER) (test code = 9.4 GM/DL 13.7-17.5 L 410) HEMATOCRIT (BEAKER) (test code = 29.4 % 40.1-51.0 L 411) MEAN CORPUSCULAR VOLUME (BEAKER) 97.0 fL 79.0-92.2 H (test code = 753) MEAN CORPUSCULAR HEMOGLOBIN 31.0 pg 25.7-32.2 (BEAKER) (test code = 751) MEAN CORPUSCULAR HEMOGLOBIN CONC 32.0 GM/DL 32.3-36.5 L (BEAKER) (test code = 752) RED CELL DISTRIBUTION WIDTH 12.6 % 11.6-14.4 (BEAKER) (test code = 412) PLATELET COUNT (BEAKER) (test 260 K/CU MM 150-450 code = 756) MEAN PLATELET VOLUME (BEAKER) 11.0 fL 9.4-12.4 (test code = 754) NUCLEATED RED BLOOD CELLS 0 /100 WBC 0-0 (BEAKER) (test code = 413) POCT-GLUCOSE [id number] 21:18:00 Test Item Value Reference Range Interpretation Comments POC-GLUCOSE METER 196 mg/dL 70-110 H : TESTED A T [facility] 6720 (BEAKER) (test code = [facility], 1538) 31194: Dental Scheduling Coordinator/Techni john ID = [id number] for Khadijah Fitzgerald POCT-GLUCOSE [id number] 16:44:00 Test Item Value Reference Range Interpretation Comments POC-GLUCOSE METER 220 mg/dL 70-110 H : TESTED A T [facility] 6720 (BEAKER) (test code = [facility], 1538) 18433: Dental Scheduling Coordinator/Techni john ID = [id number] for AMELIA MCPHERSONABRENDONNDY POCT-GLUCOSE [id number] 11:13:00 Test Item Value Reference Range Interpretation Comments POC-GLUCOSE METER 205 mg/dL 70-110 H : TESTED A T [facility] 6720 (BEAKER) (test code = [facility], 1538) 02655: Dental Scheduling Coordinator/Techni john ID = [id number] for ZA KYA, BRENDONNDY POCT-GLUCOSE [id number] 07:18:00 Test Item Value Reference Range Interpretation Comments POC-GLUCOSE METER 163 mg/dL 70-110 H : TESTED A T [facility] 6720 (BEAKER) (test code = [facility], 1538) 27517: Dental Scheduling Coordinator/Techni john ID = [id number] for ZA VALA, BRENDONNDY BASIC METABOLIC [id number] 05:59:00 Test Item Value Reference Range Interpretation Comments SODIUM (BEAKER) 135 meq/L 136-145 L (test code = 381) POTASSIUM (BEAKER) 4.4 meq/L 3.5-5.1 (test code = 379) CHLORIDE (BEAKER) 99 meq/L 98-107 (test code = 382) CO2 (BEAKER) (test 27 meq/L 22-29 code = 355) BLOOD UREA NITROGEN 37 mg/dL 7-21 H (BEAKER) (test code = 354) CREATININE (BEAKER) 4.02 mg/dL 0.57-1.25 H (test code = 358) GLUCOSE RANDOM 181 mg/dL 70-105 H (BEAKER) (test code = 652) CALCIUM (BEAKER) 8.2 mg/dL 8.4-10.2 L (test code = 697) EGFR (BEAKER) (test 15 mL/min/1.73 ESTIMA ANA GFR IS code = 1092) sq m NOT ACCURATE CREATININE CLEARANCE IN PREDICTING GLOMERULAR FILTRATION RATE . ESTIMATED GFR I S NOT APPLICABLE FOR DIALYSIS PATIEN TS. Dental Scheduling Coordinator ID - PIBELEN [id number] 05:53:00 Test Item Value Reference Range Interpretation Comments PHOSPHORUS (BEAKER) (test code = 3.2 mg/dL 2.3-4.7 604) Dental Scheduling Coordinator ID - PIBELEN LCBC (HEMOGRAM ONLY)2020-05-28 05:06:00 Test Item Value Reference Range Interpretation Comments WHITE BLOOD CELL COUNT (BEAKER) 8.6 K/ L 3.5-10.5 (test code = 775) RED BLOOD CELL COUNT (BEAKER) 2.93 M/ L 4.63-6.08 L (test code = 761) HEMOGLOBIN (BEAKER) (test code = 9.3 GM/DL 13.7-17.5 L 410) HEMATOCRIT (BEAKER) (test code = 28.9 % 40.1-51.0 L 411) MEAN CORPUSCULAR VOLUME (BEAKER) 98.6 fL 79.0-92.2 H (test code = 753) MEAN CORPUSCULAR HEMOGLOBIN 31.7 pg 25.7-32.2 (BEAKER) (test code = 751) MEAN CORPUSCULAR HEMOGLOBIN CONC 32.2 GM/DL 32.3-36.5 L (BEAKER) (test code = 752) RED CELL DISTRIBUTION WIDTH 12.6 % 11.6-14.4 (BEAKER) (test code = 412) PLATELET COUNT (BEAKER) (test 232 K/CU MM 150-450 code = 756) MEAN PLATELET VOLUME (BEAKER) 10.7 fL 9.4-12.4 (test code = 754) NUCLEATED RED BLOOD CELLS 0 /100 WBC 0-0 (BEAKER) (test code = 413) POCT-GLUCOSE [id number] 21:28:00 Test Item Value Reference Range Interpretation Comments POC-GLUCOSE METER 219 mg/dL 70-110 H : TESTED A T [facility] 6720 (BEAKER) (test code = [facility], 1538) 65117: Dental Scheduling Coordinator/Techni john ID = [id number] for Khadijah Fitzgerald POCT-GLUCOSE [id number] 16:43:00 Test Item Value Reference Range Interpretation Comments POC-GLUCOSE METER 182 mg/dL 70-110 H : TESTED A T [facility] 6720 (BEAKER) (test code = [facility], 1538) 97328: Dental Scheduling Coordinator/Techni john ID = [id number] for HU NTER, HIWITHA POCT-GLUCOSE [id number] 11:48:00 Test Item Value Reference Range Interpretation Comments POC-GLUCOSE METER 184 mg/dL 70-110 H : TESTED A T [facility] 6720 (BEAKER) (test code = [facility], 1538) 50906: Dental Scheduling Coordinator/Techni john ID = [id number] for HU NTER, HIWITHA POCT-GLUCOSE [id number] 06:59:00 Test Item Value Reference Range Interpretation Comments POC-GLUCOSE METER 150 mg/dL 70-110 H : TESTED A T [facility] 6720 (BEAKER) (test code = [facility], 1538) 10426: Dental Scheduling Coordinator/Techni john ID = [id number] for HU NTER, HIWITHA BASIC METABOLIC [id number] 05:24:00 Test Item Value Reference Range Interpretation Comments SODIUM (BEAKER) 137 meq/L 136-145 (test code = 381) POTASSIUM (BEAKER) 3.8 meq/L 3.5-5.1 (test code = 379) CHLORIDE (BEAKER) 101 meq/L 98-107 (test code = 382) CO2 (BEAKER) (test 28 meq/L 22-29 code = 355) BLOOD UREA NITROGEN 31 mg/dL 7-21 H (BEAKER) (test code = 354) CREATININE (BEAKER) 3.56 mg/dL 0.57-1.25 H (test code = 358) GLUCOSE RANDOM 168 mg/dL 70-105 H (BEAKER) (test code = 652) CALCIUM (BEAKER) 8.3 mg/dL 8.4-10.2 L (test code = 697) EGFR (BEAKER) (test 17 mL/min/1.73 ESTIMA ANA GFR IS code = 1092) sq m NOT ACCURATE CREATININE CLEARANCE IN PREDICTING GLOMERULAR FILTRATION RATE . ESTIMATED GFR I S NOT APPLICABLE FOR DIALYSIS PATIEN TS. Dental Scheduling Coordinator ID - [id number] 05:23:00 Test Item Value Reference Range Interpretation Comments PHOSPHORUS (BEAKER) (test code = 3.1 mg/dL 2.3-4.7 604) Dental Scheduling Coordinator ID - JIMBO LCBC (HEMOGRAM ONLY)2020-05-27 04:36:00 Test Item Value Reference Range Interpretation Comments WHITE BLOOD CELL COUNT (BEAKER) 8.1 K/ L 3.5-10.5 (test code = 775) RED BLOOD CELL COUNT (BEAKER) 2.81 M/ L 4.63-6.08 L (test code = 761) HEMOGLOBIN (BEAKER) (test code = 8.7 GM/DL 13.7-17.5 L 410) HEMATOCRIT (BEAKER) (test code = 27.6 % 40.1-51.0 L 411) MEAN CORPUSCULAR VOLUME (BEAKER) 98.2 fL 79.0-92.2 H (test code = 753) MEAN CORPUSCULAR HEMOGLOBIN 31.0 pg 25.7-32.2 (BEAKER) (test code = 751) MEAN CORPUSCULAR HEMOGLOBIN CONC 31.5 GM/DL 32.3-36.5 L (BEAKER) (test code = 752) RED CELL DISTRIBUTION WIDTH 12.6 % 11.6-14.4 (BEAKER) (test code = 412) PLATELET COUNT (BEAKER) (test 200 K/CU MM 150-450 code = 756) MEAN PLATELET VOLUME (BEAKER) 11.1 fL 9.4-12.4 (test code = 754) NUCLEATED RED BLOOD CELLS 0 /100 WBC 0-0 (BEAKER) (test code = 413) POCT-GLUCOSE [id number] 21:17:00 Test Item Value Reference Range Interpretation Comments POC-GLUCOSE METER 217 mg/dL 70-110 H : TESTED A T [facility] 6720 (BEAKER) (test code = [place], 1538) [address]: Dental Scheduling Coordinator/Techni john ID = [id number] for GO NZALES III, HYACINTH POCT-GLUCOSE [id number] 16:12:00 Test Item Value Reference Range Interpretation Comments POC-GLUCOSE METER 193 mg/dL 70-110 H : TESTED A T [facility] 6720 (ALICIA) (test code = [place], 1538) [address]: Dental Scheduling Coordinator/Techni john ID = [id number] for CHARLES DIOP SARS-COV2/RT-PCR ([facility])2020-05-26 11:56:00 Test Item Value Reference Range Interpretation Comments SARS-COV2/RT-PCR (test Negative Not Detected, Negative, code = 4107366) See external report for linked test SARS-COV-[address] [facility] JOVANNY (test code = 6276771) Negative result for this test determines that SARS-CoV-2 RNA was not present in the specimen above the Limit of Detection (LOD). However, Negative results do not preclude SARS-CoV-2 infection and should not be used as the sole basis for treatment or patient management decisions. Negative results mustbe combined with clinical observations, patient history, and epidemiological information. A false negative result may occur if a specimen is improperly collected, transported or handled. A false negative result should be considered if patient's recent exposures or clinical presentation indicate that COVID-19 (SARS-CoV-2) is likely and diagnostic tests for other causes of illness are negative. Re-testing should be considered in cases of suspected false negatives.The limit of detection for this assay is 800 copies/mL.This SARS CoV-2 test is a real-time RT-PCR test intended for the qualitative detection of nucleic acid from SARS-CoV-2 in a nasopharyngeal swab specimen collected from individuals susp ected of COVID-19 by their healthcare provider.This test has not been Food and Drug Administration (FDA) cleared or approved. This is a modified version of an approved Emergency Use Authorization (EUA) and is in the process of review by the FDA. Once authorized by the FDA, the issued EUA will be effective until the declaration that circumstances exist justifying the authorization of the emergency use of in vitro diagnostic tests for detection and/or diagnosis of COVID-19 is terminated under Section 564(b)(2) of the Act or the EUA is revoked under Section 564(g) of the Act.Fact Sheet for Healthcare Providers:https://www.[employer]/sites/default/files/product/documents/Fact_Shee w_WG_Qbfznatjw_Yfaw_AAXT-ZjL-0.pdfFact Sheet for Healthcare Patients:https://www.[employer]/sites/default/files/product/ documents/Mysm_Dotzr_Diprsbta_Jkst_CNAZ-YmI-5.pdfPerforming Laboratory:[facility], [place] [address]FGSHGEOYYARN [id number] 11:45:00Joseluis Ivan, CARI 05/26/2020 12:08 PMTolerated and completed 3 hours and 30minutes. No distress noted, asymptomatic. Denies any discomfort and pain.UF fluid removed 3 liters.Secured access with pressure dressing gauze and tape. No further bleeding nted. Report given to nurse Nancy ALCALA. Latest lab result:Lab Results Component Value Date WBC 7.6 05/26/2020 HGB 8.2 (L) 05/26/2020 HCT 26.0 (L) 05/26/2020 MCV 99.2 (H) 05/26/2020 PLT 160 05/26/2020 Lab Results Component Value Date GLUCOSE 228(H) 05/26/2020 CALCIUM 8.3 (L) 05/26/2020 NA 138 05/26/2020 K 4.0 05/26/2020 CO2 26 05/26/2020 CL 103 05/26/2020 BUN 40 (H) 05/26/2020 CREATININE 4.45 (H) 05/26/2020 Joseluis GARCIA, RN [id number]- Adult Cumgjxbf107 [address] [place], [place] [address]POCT-GLUCOSE [id number] 11:44:00 Test Item Value Reference Range Interpretation Comments POC-GLUCOSE METER 207 mg/dL 70-110 H : Notified RN/MD: (ALICIA) (test code = TESTED AT [facility] 6720 1538) [facility], [address]: Dental Scheduling Coordinator/Techni john ID = [id number] for Veronica Davenport BASIC METABOLIC [id number] 06:54:00 Test Item Value Reference Range Interpretation Comments SODIUM (BEAKER) 138 meq/L 136-145 (test code = 381) POTASSIUM (BEAKER) 4.0 meq/L 3.5-5.1 (test code = 379) CHLORIDE (BEAKER) 103 meq/L 98-107 (test code = 382) CO2 (BEAKER) (test 26 meq/L 22-29 code = 355) BLOOD UREA NITROGEN 40 mg/dL 7-21 H (BEAKER) (test code = 354) CREATININE (BEAKER) 4.45 mg/dL 0.57-1.25 H (test code = 358) GLUCOSE RANDOM 228 mg/dL 70-105 H (BEAKER) (test code = 652) CALCIUM (BEAKER) 8.3 mg/dL 8.4-10.2 L (test code = 697) EGFR (BEAKER) (test 13 mL/min/1.73 ESTIMA ANA GFR IS code = 1092) sq m NOT ACCURATE CREATININE CLEARANCE IN PREDICTING GLOMERULAR FILTRATION RATE . ESTIMATED GFR I S NOT APPLICABLE FOR DIALYSIS PATIEN TS. Dental Scheduling Coordinator ID - PIBELEN [id number] 06:51:00 Test Item Value Reference Range Interpretation Comments PHOSPHORUS (BEAKER) (test code = 4.0 mg/dL 2.3-4.7 604) Dental Scheduling Coordinator ID - LEONABELEN LCBC (HEMOGRAM ONLY)2020-05-26 05:53:00 Test Item Value Reference Range Interpretation Comments WHITE BLOOD CELL COUNT (BEAKER) 7.6 K/ L 3.5-10.5 (test code = 775) RED BLOOD CELL COUNT (BEAKER) 2.62 M/ L 4.63-6.08 L (test code = 761) HEMOGLOBIN (BEAKER) (test code = 8.2 GM/DL 13.7-17.5 L 410) HEMATOCRIT (BEAKER) (test code = 26.0 % 40.1-51.0 L 411) MEAN CORPUSCULAR VOLUME (BEAKER) 99.2 fL 79.0-92.2 H (test code = 753) MEAN CORPUSCULAR HEMOGLOBIN 31.3 pg 25.7-32.2 (BEAKER) (test code = 751) MEAN CORPUSCULAR HEMOGLOBIN CONC 31.5 GM/DL 32.3-36.5 L (BEAKER) (test code = 752) RED CELL DISTRIBUTION WIDTH 13.1 % 11.6-14.4 (BEAKER) (test code = 412) PLATELET COUNT (BEAKER) (test 160 K/CU MM 150-450 code = 756) MEAN PLATELET VOLUME (BEAKER) 11.6 fL 9.4-12.4 (test code = 754) NUCLEATED RED BLOOD CELLS 0 /100 WBC 0-0 (BANNER) (test code = 413) POCT-GLUCOSE [id number] 18:24:00 Test Item Value Reference Range Interpretation Comments POC-GLUCOSE METER 140 mg/dL 70-110 H : TESTED A T [place] [address] (ALICIA) (test code = KIMMY Chaney [facility], 1538) [address]: Dental Scheduling Coordinator/Techni john ID = [id number] for AD AMS, NANCY HEMODIALYSIS [id number] 18:06:00Chu, Angel Martin RN 05/25/2020 6:07 PMHD x 3.5 hours. UF net 3L. Treatment tolerated well. Pt awake and alert, not in [...] BUN 47 (H) 05/25/2020 CREATININE 5.87 (H) 05/25 Lab Results Component Value Date HEPBSAG Nonreactive 05/18/2020 Vitals: 05/25/20 1800 BP: 146/72 Pulse: 97 Resp: 23 Temp: 98.1 F (36.7 C) SpO2: 100%[facility] [place] [id number] 11:53:00 Test Item Value Reference Range Interpretation Comments POC-GLUCOSE METER 226 mg/dL 70-110 H : Notified RN/MD: (ALICIA) (test code = TESTED AT [facility] 6720 1538) [facility], [address]: Dental Scheduling Coordinator/Techni john ID = [id number] for Si mmmartell, Veronica POCT-GLUCOSE [id number] 07:50:00 Test Item Value Reference Range Interpretation Comments POC-GLUCOSE METER 145 mg/dL 70-110 H : Notified RN/MD: (BEAKER) (test code = TESTED AT [facility] 9292 1082) [place], [address]: Dental Scheduling Coordinator/Techni john ID = [id number] for Veronica Davenport BLOOD GAS, [id number] 06:42:00 Test Item Value Reference Range Interpretation Comments PH ARTERIAL (BEAKER) (test code = 7.41 7.35-7.45 383) PCO2 ARTERIAL (BEAKER) (test code 39 mmHg 35-45 = 384) PO2 ARTERIAL (BEAKER) (test code 160 mmHg 80-90 H = 385) O2 SATURATION ARTERIAL (BEAKER) 99.0 % 96.0-97.0 H (test code = 386) HCO3 ARTERIAL (BEAKER) (test code 24 mmol/L 21-29 = 388) BASE EXCESS ARTERIAL (BEAKER) -0.1 mmol/L -2.0-3.0 (test code = 387) PATIENT TEMPERATURE (BEAKER) 38.0 C (test code = 1818) FIO2 (BEAKER) (test code = 1819) 32.0 % BASIC METABOLIC [id number] 04:37:00 Test Item Value Reference Range Interpretation Comments SODIUM (BEAKER) 138 meq/L 136-145 (test code = 381) POTASSIUM (BEAKER) 4.2 meq/L 3.5-5.1 (test code = 379) CHLORIDE (BEAKER) 103 meq/L 98-107 (test code = 382) CO2 (BEAKER) (test 23 meq/L 22-29 code = 355) BLOOD UREA NITROGEN 47 mg/dL 7-21 H (BEAKER) (test code = 354) CREATININE (BEAKER) 5.87 mg/dL 0.57-1.25 H (test code = 358) GLUCOSE RANDOM 173 mg/dL 70-105 H (BEAKER) (test code = 652) CALCIUM (BEAKER) 7.9 mg/dL 8.4-10.2 L (test code = 697) EGFR (BEAKER) (test 10 mL/min/1.73 ESTIMA ANA GFR IS code = 1092) sq m NOT ACCURATE CREATININE CLEARANCE IN PREDICTING GLOMERULAR FILTRATION RATE . ESTIMATED GFR I S NOT APPLICABLE FOR DIALYSIS PATIEN TS. Dental Scheduling Coordinator ID - [id number] 04:26:00 Test Item Value Reference Range Interpretation Comments PHOSPHORUS (BEAKER) (test code = 4.9 mg/dL 2.3-4.7 H 604) Dental Scheduling Coordinator ID - [id number] (HEMOGRAM ONLY)2020-05-25 04:09:00 Test Item Value Reference Range Interpretation Comments WHITE BLOOD CELL COUNT (BEAKER) 11.3 K/ L 3.5-10.5 H (test code = 775) RED BLOOD CELL COUNT (BEAKER) 2.66 M/ L 4.63-6.08 L (test code = 761) HEMOGLOBIN (BEAKER) (test code = 8.4 GM/DL 13.7-17.5 L 410) HEMATOCRIT (BEAKER) (test code = 26.3 % 40.1-51.0 L 411) MEAN CORPUSCULAR VOLUME (BEAKER) 98.9 fL 79.0-92.2 H (test code = 753) MEAN CORPUSCULAR HEMOGLOBIN 31.6 pg 25.7-32.2 (BEAKER) (test code = 751) MEAN CORPUSCULAR HEMOGLOBIN CONC 31.9 GM/DL 32.3-36.5 L (BEAKER) (test code = 752) RED CELL DISTRIBUTION WIDTH 13.3 % 11.6-14.4 (BEAKER) (test code = 412) PLATELET COUNT (BEAKER) (test 123 K/CU MM 150-450 L code = 756) MEAN PLATELET VOLUME (BEAKER) 11.6 fL 9.4-12.4 (test code = 754) NUCLEATED RED BLOOD CELLS 0 /100 WBC 0-0 (BEAKER) (test code = 413) RAD, CHEST, 1 VIEW, NON [id number] 01:00:00Reason for exam:->chest tubesShould this be performed at the bedside?->YesFINAL REPORT RAD, CHEST, 1 VIEW, NON DEPT INDICATION: chest tubes COMPARISON:Prior day's exam FINDINGS: Portable frontal view of the chest. IMPRESSION: Support Lines: Stable.Lungs and pleura: Unchanged hypoinflated lungs with bibasilar patchy airspace opacities and trace effusions. No pneumothorax.Heart and mediastinum: Stable contours.Additional findings: None. Signed: Marija Dimas MDReport Verified Date/Time: 05/25/2020 01:00:30 POCT-GLUCOSE [id number] 23:07:00 Test Item Value Reference Range Interpretation Comments POC-GLUCOSE METER 157 mg/dL 70-110 H : TESTED A T [facility] 6720 (BEAKER) (test code = [facility]) [address]: Dental Scheduling Coordinator/Techni john ID = [id number] for KELLEN CHAIREZ POCT-GLUCOSE [id number] 16:09:00 Test Item Value Reference Range Interpretation Comments POC-GLUCOSE METER 207 mg/dL 70-110 H : TESTED A T [facility] 6720 (BEAKER) (test code = [facility], [facility]) [address]: Dental Scheduling Coordinator/Techni john ID = [id number] for FA GOYAL, OLAKUNLE POCT-GLUCOSE [id number] 11:59:00 Test Item Value Reference Range Interpretation Comments POC-GLUCOSE METER 247 mg/dL 70-110 H : TESTED A T [facility] 6720 (BEAKER) (test code = [facility], [facility]) [address]: Dental Scheduling Coordinator/Techni john ID = [id number] for FA GOYAL, OLAKUNLE POCT-GLUCOSE [id number] 06:58:00 Test Item Value Reference Range Interpretation Comments POC-GLUCOSE METER 149 mg/dL 70-110 H : TESTED A T [facility] 6720 (BEAKER) (test code = [facility], [facility]) [address]: Dental Scheduling Coordinator/Techni john ID = [id number] for KELLEN CHAIREZ BASIC METABOLIC [id number] 06:42:00 Test Item Value Reference Range Interpretation Comments SODIUM (BEAKER) 141 meq/L 136-145 (test code = 381) POTASSIUM (BEAKER) 4.0 meq/L 3.5-5.1 (test code = 379) CHLORIDE (BEAKER) 107 meq/L 98-107 (test code = 382) CO2 (BEAKER) (test 21 meq/L 22-29 L code = 355) BLOOD UREA NITROGEN 34 mg/dL 7-21 H (BEAKER) (test code = 354) CREATININE (BEAKER) 5.61 mg/dL 0.57-1.25 H (test code = 358) GLUCOSE RANDOM 105 mg/dL 70-105 (BEAKER) (test code = 652) CALCIUM (BEAKER) 8.1 mg/dL 8.4-10.2 L (test code = 697) EGFR (BEAKER) (test 10 mL/min/1.73 ESTIMA ANA GFR IS code = 1092) sq m NOT ACCURATE CREATININE CLEARANCE IN PREDICTING GLOMERULAR FILTRATION RATE . ESTIMATED GFR I S NOT APPLICABLE FOR DIALYSIS PATIEN TS. Dental Scheduling Coordinator ID - [id number] 06:29:00 Test Item Value Reference Range Interpretation Comments PHOSPHORUS (BEAKER) (test code = 4.8 mg/dL 2.3-4.7 H 604) Dental Scheduling Coordinator ID - [id number] (HEMOGRAM ONLY)2020-05-24 05:34:00 Test Item Value Reference Range Interpretation Comments WHITE BLOOD CELL COUNT (BEAKER) 12.9 K/ L 3.5-10.5 H (test code = 775) RED BLOOD CELL COUNT (BEAKER) 2.67 M/ L 4.63-6.08 L (test code = 761) HEMOGLOBIN (BEAKER) (test code = 8.6 GM/DL 13.7-17.5 L 410) HEMATOCRIT (BEAKER) (test code = 26.5 % 40.1-51.0 L 411) MEAN CORPUSCULAR VOLUME (BEAKER) 99.3 fL 79.0-92.2 H (test code = 753) MEAN CORPUSCULAR HEMOGLOBIN 32.2 pg 25.7-32.2 (BEAKER) (test code = 751) MEAN CORPUSCULAR HEMOGLOBIN CONC 32.5 GM/DL 32.3-36.5 (BEAKER) (test code = 752) RED CELL DISTRIBUTION WIDTH 13.4 % 11.6-14.4 (BEAKER) (test code = 412) PLATELET COUNT (BEAKER) (test 105 K/CU MM 150-450 L code = 756) MEAN PLATELET VOLUME (BEAKER) 11.7 fL 9.4-12.4 (test code = 754) NUCLEATED RED BLOOD CELLS 0 /100 WBC 0-0 (BEAKER) (test code = 413) BLOOD GAS, [id number] 05:10:00 Test Item Value Reference Range Interpretation Comments PH ARTERIAL (BEAKER) (test code = 7.45 7.35-7.45 383) PCO2 ARTERIAL (BEAKER) (test code 39 mmHg 35-45 = 384) PO2 ARTERIAL (BEAKER) (test code = 84 mmHg 80-90 385) O2 SATURATION ARTERIAL (BEAKER) 96.8 % 96.0-97.0 (test code = 386) HCO3 ARTERIAL (BEAKER) (test code 27 mmol/L 21-29 = 388) BASE EXCESS ARTERIAL (BEAKER) 2.8 mmol/L -2.0-3.0 (test code = 387) PATIENT TEMPERATURE (BEAKER) (test 37.0 C code = 1818) FIO2 (BEAKER) (test code = 1819) 40.0 % RAD, CHEST, 1 VIEW, NON [id number] 03:52:00Reason for exam:->s/p: CABGShould this be performed at the bedside?->YesFINAL REPORT RAD, CHEST, 1 VIEW, NON DEPT INDICATION: s/p: CABG COMPARISON: Prior day's exam FINDINGS: Portable frontal view of the chest. IMPRESSION: Support Lines: The Kneeland-Tita catheter has been removed with a right IJ sheath remaining. Otherwise, stable.Lungs and pleura: Unchanged hypoinflated lungs without new consolidation or effusion. No pneumothorax.Heart and mediastinum: Stable contours.Additional findings: None. Signed: Marija Dimas MDReport Verified Date/Time: 05/24/2020 03:52:46 POCT-GLUCOSE [id number] 02:23:00 Test Item Value Reference Range Interpretation Comments POC-GLUCOSE METER 109 mg/dL 70-110 : [facility] (BEAKER) (test code = KIMMY Chaney [facility], 1538) [address]: Dental Scheduling Coordinator/Techni john ID = [id number] for HUMA CHAIREZWaqas BASIC METABOLIC [id number] 00:21:00 Test Item Value Reference Range Interpretation Comments SODIUM (BEAKER) 138 meq/L 136-145 (test code = 381) POTASSIUM (BEAKER) 3.8 meq/L 3.5-5.1 (test code = 379) CHLORIDE (BEAKER) 104 meq/L 98-107 (test code = 382) CO2 (BEAKER) (test 25 meq/L 22-29 code = 355) BLOOD UREA NITROGEN 33 mg/dL 7-21 H (BEAKER) (test code = 354) CREATININE (BEAKER) 5.29 mg/dL 0.57-1.25 H (test code = 358) GLUCOSE RANDOM 132 mg/dL 70-105 H (BEAKER) (test code = 652) CALCIUM (BEAKER) 7.9 mg/dL 8.4-10.2 L (test code = 697) EGFR (BEAKER) (test 11 mL/min/1.73 ESTIMA ANA GFR IS code = 1092) sq m NOT ACCURATE CREATININE CLEARANCE IN PREDICTING GLOMERULAR FILTRATION RATE . ESTIMATED GFR I S NOT APPLICABLE FOR DIALYSIS PATIEN TS. Dental Scheduling Coordinator ID - DARCIE [id number] 00:18:00 Test Item Value Reference Range Interpretation Comments MAGNESIUM (BEAKER) (test code = 2.2 mg/dL 1.6-2.6 627) Dental Scheduling Coordinator ID - DARCIE WCBC (HEMOGRAM ONLY)2020-05-24 00:00:00 Test Item Value Reference Range Interpretation Comments WHITE BLOOD CELL COUNT (BEAKER) 12.5 K/ L 3.5-10.5 H (test code = 775) RED BLOOD CELL COUNT (BEAKER) 2.69 M/ L 4.63-6.08 L (test code = 761) HEMOGLOBIN (BEAKER) (test code = 8.4 GM/DL 13.7-17.5 L 410) HEMATOCRIT (BEAKER) (test code = 26.4 % 40.1-51.0 L 411) MEAN CORPUSCULAR VOLUME (BEAKER) 98.1 fL 79.0-92.2 H (test code = 753) MEAN CORPUSCULAR HEMOGLOBIN 31.2 pg 25.7-32.2 (BEAKER) (test code = 751) MEAN CORPUSCULAR HEMOGLOBIN CONC 31.8 GM/DL 32.3-36.5 L (BEAKER) (test code = 752) RED CELL DISTRIBUTION WIDTH 13.3 % 11.6-14.4 (BEAKER) (test code = 412) PLATELET COUNT (BEAKER) (test 100 K/CU MM 150-450 L code = 756) MEAN PLATELET VOLUME (BEAKER) 11.0 fL 9.4-12.4 (test code = 754) NUCLEATED RED BLOOD CELLS 0 /100 WBC 0-0 (BEAKER) (test code = 413) POCT-GLUCOSE [id number] 23:59:00 Test Item Value Reference Range Interpretation Comments POC-GLUCOSE METER 133 mg/dL 70-110 H : TESTED A T [facility] 6720 (BEAKER) (test code [facility], = 1538) [address]: Dental Scheduling Coordinator/Techni john ID = [id number] for DONALDO DERO, MERNA POCT-GLUCOSE [id number] 23:03:00 Test Item Value Reference Range Interpretation Comments POC-GLUCOSE METER 138 mg/dL 70-110 H : TESTED A T [facility] 6720 (BEAKER) (test code [facility], = 1538) [address]: Dental Scheduling Coordinator/Techni john ID = [id number] for DONALDO DERO, MERNA POCT-GLUCOSE [id number] 21:20:00 Test Item Value Reference Range Interpretation Comments POC-GLUCOSE METER 142 mg/dL 70-110 H : TESTED A T [facility] 6720 (BEAKER) (test code [facility], = 1538) [address]: Dental Scheduling Coordinator/Techni john ID = [id number] for DONALDO DERO, MERNA POCT-GLUCOSE [id number] 20:25:00 Test Item Value Reference Range Interpretation Comments POC-GLUCOSE METER 145 mg/dL 70-110 H : TESTED A T [facility] 6720 (BEAKER) (test code [facility], = 1538) [address]: Dental Scheduling Coordinator/Techni john ID = [id number] for DONALDO DERO, MERNA POCT-GLUCOSE [id number] 18:38:00 Test Item Value Reference Range Interpretation Comments POC-GLUCOSE METER 166 mg/dL 70-110 H : TESTED A T [facility] 6720 (BEAKER) (test code = [facility], 1538) [address]: Dental Scheduling Coordinator/Techni john ID = [id number] for RODRIGUEZ RICKY IVELISSE POCT-GLUCOSE [id number] 17:52:00 Test Item Value Reference Range Interpretation Comments POC-GLUCOSE METER 132 mg/dL 70-110 H : TESTED A T [facility] 6720 (BEAKER) (test code = [facility], 1538) [address]: Dental Scheduling Coordinator/Techni john ID = [id number] for Be rki, Meti POCT-GLUCOSE [id number] 16:52:00 Test Item Value Reference Range Interpretation Comments POC-GLUCOSE METER 144 mg/dL 70-110 H : TESTED A T [facility] 6720 (BEAKER) (test code = [facility], [facility]) [address]: Dental Scheduling Coordinator/Techni john ID = [id number] for Be rki, Meti POCT-GLUCOSE [id number] 15:09:00 Test Item Value Reference Range Interpretation Comments POC-GLUCOSE METER 157 mg/dL 70-110 H : TESTED A T [facility] 6720 (BEAKER) (test code = [facility]) 45690: Dental Scheduling Coordinator/Techni john ID = [id number] for Be rki, Meti POCT-GLUCOSE [id number] 15:06:00 Test Item Value Reference Range Interpretation Comments POC-GLUCOSE METER 154 mg/dL 70-110 H : TESTED A T [facility] 6720 (BEAKER) (test code = [facility]) 76277: Dental Scheduling Coordinator/Techni john ID = [id number] for Be rki, Meti POCT-GLUCOSE [id number] 13:38:00 Test Item Value Reference Range Interpretation Comments POC-GLUCOSE METER 162 mg/dL 70-110 H : TESTED A T [facility] 6720 (BEAKER) (test code = [facility], [facility]) 10761: Dental Scheduling Coordinator/Techni john ID = [id number] for Be rki, Meti POCT-GLUCOSE [id number] 12:50:00 Test Item Value Reference Range Interpretation Comments POC-GLUCOSE METER 135 mg/dL 70-110 H : TESTED A T [facility] 6720 (BEAKER) (test code = [facility]) [address]: Dental Scheduling Coordinator/Techni john ID = [id number] for Be rki, Meti POCT-GLUCOSE [id number] 12:50:00 Test Item Value Reference Range Interpretation Comments POC-GLUCOSE METER 126 mg/dL 70-110 H : TESTED A T [facility] 6720 (BEAKER) (test code = [facility], 1538) [address]: Dental Scheduling Coordinator/Techni john ID = [id number] for Be rki, Meti POCT-GLUCOSE [id number] 12:00:00 Test Item Value Reference Range Interpretation Comments POC-GLUCOSE METER 151 mg/dL 70-110 H : TESTED A T [facility] 6720 (BEAKER) (test code = [facility], 1538) 07883: Dental Scheduling Coordinator/Techni john ID = [id number] for RODRIGUEZ GARCÍA IVELISSE POCT-GLUCOSE [id number] 10:31:00 Test Item Value Reference Range Interpretation Comments POC-GLUCOSE METER 123 mg/dL 70-110 H : TESTED A T [facility] 6720 (BEAKER) (test code = [facility], 1538) 44454: Dental Scheduling Coordinator/Techni john ID = [id number] for Be rki, Meti POCT-GLUCOSE [id number] 10:31:00 Test Item Value Reference Range Interpretation Comments POC-GLUCOSE METER 97 mg/dL 70-110 : TESTED A T [facility] 6720 (BEAKER) (test code = [facility], 1538) 18737: Dental Scheduling Coordinator/Techni john ID = [id number] for Francisco Javier i, Meti POCT-GLUCOSE [id number] 10:31:00 Test Item Value Reference Range Interpretation Comments POC-GLUCOSE METER 123 mg/dL 70-110 H : TESTED A T [facility] 6720 (BEAKER) (test code = [facility], 1538) 49371: Dental Scheduling Coordinator/Techni john ID = [id number] for [place] ERO, KASANDRA POCT-GLUCOSE [id number] 09:43:00 Test Item Value Reference Range Interpretation Comments POC-GLUCOSE METER 142 mg/dL 70-110 H : TESTED A T [facility] 6720 (BEAKER) (test code = [facility], 1538) 05332: Dental Scheduling Coordinator/Techni john ID = [id number] for [place] ERO, KASANDRA POCT-GLUCOSE [id number] 09:43:00 Test Item Value Reference Range Interpretation Comments POC-GLUCOSE METER 160 mg/dL 70-110 H : TESTED A T [facility] 6720 (BEAKER) (test code = [facility], 1538) 00017: Dental Scheduling Coordinator/Techni john ID = [id number] for [place] ERO, KASANDRA POCT-GLUCOSE [id number] 06:57:00 Test Item Value Reference Range Interpretation Comments POC-GLUCOSE METER 100 mg/dL 70-110 : TESTED A T [place] [address] (BEAKER) (test code = [facility], 1538) 52879: Dental Scheduling Coordinator/Techni john ID = [id number] for [place] ERO, KASANDRA POC ACTIVATED CLOTTING [id number] 06:26:00 Test Item Value Reference Range Interpretation Comments Activated Clotting Time 114 sec : 74 -137 seconds, (test code = 441) Baseline: TESTED AT [address], [address]: Dental Scheduling Coordinator/Techni john ID = [id number] for [facility]A [facility]AN [facility] [id number][id number] 06:26:00 Test Item Value Reference Range Interpretation Comments ACTIVATED CLOTTING TIME 114 sec : 74 -137 seconds, (BEAKER) (test code = Baseli ne: TESTED AT 441) [address], [address]: Dental Scheduling Coordinator/Techni john ID = [id number] for MARIJA URBAN [id number] 06:26:00 Test Item Value Reference Range Interpretation Comments ACTIVATED CLOTTING TIME 428 sec : 74 -137 seconds, (BEAKER) (test code = Baseli ne: TESTED AT 441) [address], [address]: Dental Scheduling Coordinator/Techni john ID = [id number] for MARIJA URBAN [id number] 06:26:00 Test Item Value Reference Range Interpretation Comments ACTIVATED CLOTTING TIME 439 sec : 74 -137 seconds, (BEAKER) (test code = Baseli ne: TESTED AT 441) [address], [address]: Dental Scheduling Coordinator/Techni john ID = [id number] for MARIJA URBAN [id number] 06:26:00 Test Item Value Reference Range Interpretation Comments ACTIVATED CLOTTING TIME 422 sec : 74 -137 seconds, (BEAKER) (test code = Baseli ne: TESTED AT 441) [address], [address]: Dental Scheduling Coordinator/Techni john ID = [id number] for MARIJA URBAN [id number] 06:26:00 Test Item Value Reference Range Interpretation Comments ACTIVATED CLOTTING TIME 472 sec : 74 -137 seconds, (BEAKER) (test code = Baseli ne: TESTED AT 441) [facility] [address] [facility] [place], [address]: Dental Scheduling Coordinator/Techni john ID = [id number] for MAIRJA URBAN BASIC METABOLIC [id number] 06:14:00 Test Item Value Reference Range Interpretation Comments SODIUM (BEAKER) 143 meq/L 136-145 (test code = 381) POTASSIUM (BEAKER) 4.2 meq/L 3.5-5.1 (test code = 379) CHLORIDE (BEAKER) 108 meq/L 98-107 H (test code = 382) CO2 (BEAKER) (test 24 meq/L 22-29 code = 355) BLOOD UREA NITROGEN 31 mg/dL 7-21 H (BEAKER) (test code = 354) CREATININE (BEAKER) 5.31 mg/dL 0.57-1.25 H (test code = 358) GLUCOSE RANDOM 150 mg/dL 70-105 H (BEAKER) (test code = 652) CALCIUM (BEAKER) 8.1 mg/dL 8.4-10.2 L (test code = 697) EGFR (BEAKER) (test 11 mL/min/1.73 ESTIMA ANA GFR IS code = 1092) sq m NOT ACCURATE CREATININE CLEARANCE IN PREDICTING GLOMERULAR FILTRATION RATE . ESTIMATED GFR I S NOT APPLICABLE FOR DIALYSIS PATIEN TS. Dental Scheduling Coordinator ID - [id number] 05:37:00 Test Item Value Reference Range Interpretation Comments PHOSPHORUS (BEAKER) (test code = 4.0 mg/dL 2.3-4.7 604) Dental Scheduling Coordinator ID - [id number] 05:37:00 Test Item Value Reference Range Interpretation Comments MAGNESIUM (BEAKER) (test code = 2.0 mg/dL 1.6-2.6 627) Dental Scheduling Coordinator ID - EDASICBC (HEMOGRAM ONLY)2020-05-23 04:49:00 Test Item Value Reference Range Interpretation Comments WHITE BLOOD CELL COUNT (BEAKER) 11.3 K/ L 3.5-10.5 H (test code = 775) RED BLOOD CELL COUNT (BEAKER) 3.15 M/ L 4.63-6.08 L (test code = 761) HEMOGLOBIN (BEAKER) (test code = 9.8 GM/DL 13.7-17.5 L 410) HEMATOCRIT (BEAKER) (test code = 30.2 % 40.1-51.0 L 411) MEAN CORPUSCULAR VOLUME (BEAKER) 95.9 fL 79.0-92.2 H (test code = 753) MEAN CORPUSCULAR HEMOGLOBIN 31.1 pg 25.7-32.2 (BEAKER) (test code = 751) MEAN CORPUSCULAR HEMOGLOBIN CONC 32.5 GM/DL 32.3-36.5 (BEAKER) (test code = 752) RED CELL DISTRIBUTION WIDTH 12.8 % 11.6-14.4 (BEAKER) (test code = 412) PLATELET COUNT (BEAKER) (test 136 K/CU MM 150-450 L code = 756) MEAN PLATELET VOLUME (BEAKER) 11.4 fL 9.4-12.4 (test code = 754) NUCLEATED RED BLOOD CELLS 0 /100 WBC 0-0 (BEAKER) (test code = 413) LACTIC ACID, [id number] 04:45:00 Test Item Value Reference Range Interpretation Comments LACTATE BLOOD ARTERIAL (2) 2.2 mmol/L 0.5-2.2 (BEAKER) (test code = 2874) Dental Scheduling Coordinator ID - EDASIRAD, CHEST, 1 VIEW, NON [id number] 04:06:00Reason for exam:->chest tubesShould this be performed at the bedside?->YesFINAL REPORT RAD, CHEST, 1 VIEW, NON DEPT INDICATION: chest tubes COMPARISON:Prior day's exam FINDINGS: Portable frontal view of the chest. IMPRESSION: Support Lines: Stable.Lungs and pleura: Decreased lung volumes with worsening hazy airspace opacities bilaterally over multiple prior studies, possibly related to worsening atelectasis given hypoventilatory technique however recommend continued attention on follow-up. Possible small left pleural effusion. No pneumothorax.Heart and mediastinum: Stable contours. Stable surgical changes.Additional findings: None. Signed: [facility] Verified Date/Time: 05/23/2020 04:06:14 BLOOD GAS, [id number] 03:55:00 Test Item Value Reference Range Interpretation Comments PH ARTERIAL (BEAKER) (test code = 7.44 7.35-7.45 383) PCO2 ARTERIAL (BEAKER) (test code 42 mmHg 35-45 = 384) PO2 ARTERIAL (BEAKER) (test code = 118 mmHg 80-90 H 385) O2 SATURATION ARTERIAL (BEAKER) 98.4 % 96.0-97.0 H (test code = 386) HCO3 ARTERIAL (BEAKER) (test code 27 mmol/L 21-29 = 388) BASE EXCESS ARTERIAL (BEAKER) 3.0 mmol/L -2.0-3.0 (test code = 387) PATIENT TEMPERATURE (BEAKER) (test 37.5 C code = 1818) FIO2 (BEAKER) (test code = 1819) 40.0 % Oxygen saturation, [id number] 03:54:00 Test Item Value Reference Range Interpretation Comments O2 Saturation (Measured) (test code = 79.8 % 44144-2) [facility] SAT[facility], [id number] 03:54:00 Test Item Value Reference Range Interpretation Comments O2 SATURATION (MEASURED) (BEAKER) 79.8 % (test code = 1455) POCT-GLUCOSE [id number] 02:46:00 Test Item Value Reference Range Interpretation Comments POC-GLUCOSE METER 195 mg/dL 70-110 H : TESTED A T [facility] 6720 (BEAKER) (test code = [facility], 1538) [address]: Dental Scheduling Coordinator/Techni john ID = [id number] for KASANDRA SOSA LACTIC ACID, [id number] 01:19:00 Test Item Value Reference Range Interpretation Comments LACTATE BLOOD ARTERIAL (2) 3.1 mmol/L 0.5-2.2 H (BEAKER) (test code = 2874) Dental Scheduling Coordinator ID - JIMBO LPOCT-GLUCOSE [id number] 00:52:00 Test Item Value Reference Range Interpretation Comments POC-GLUCOSE METER 193 mg/dL 70-110 H : TESTED A T [facility] 6720 (BEAKER) (test code = [facility], 153) [address]: Dental Scheduling Coordinator/Techni john ID = [id number] for JULIANNE AMARAL POCT-GLUCOSE [id number] 00:52:00 Test Item Value Reference Range Interpretation Comments POC-GLUCOSE METER 223 mg/dL 70-110 H : TESTED A T [facility] 6720 (BEAKER) (test code = [facility] [place], 1538) [address]: Dental Scheduling Coordinator/Techni john ID = [id number] for AFSHIN NUNN Glucose-Stat [id number] 00:45:00 Test Item Value Reference Range Interpretation Comments Glucose (test code = 2345-7) 198 mg/dL 70-110 H Lab Interpretation (test code = Abnormal 22601-8) [facility] [id number] 00:45:00 Test Item Value Reference Range Interpretation Comments GLUCOSE RANDOM (BEAKER) (test code 198 mg/dL 70-110 H = 652) BLOOD GAS, [id number] 00:45:00 Test Item Value Reference Range Interpretation Comments PH ARTERIAL (BEAKER) (test code = 7.54 7.35-7.45 H 383) PCO2 ARTERIAL (BEAKER) (test code 31 mmHg 35-45 L = 384) PO2 ARTERIAL (BEAKER) (test code = 142 mmHg 80-90 H 385) O2 SATURATION ARTERIAL (BEAKER) 99.1 % 96.0-97.0 H (test code = 386) HCO3 ARTERIAL (BEAKER) (test code 26 mmol/L 21-29 = 388) BASE EXCESS ARTERIAL (BEAKER) 3.2 mmol/L -2.0-3.0 H (test code = 387) PATIENT TEMPERATURE (BEAKER) (test 37.0 C code = 1818) FIO2 (BEAKER) (test code = 1819) 40.0 % [id number] 22:34:00 Test Item Value Reference Range Interpretation Comments PHOSPHORUS (BEAKER) (test code = 1.5 mg/dL 2.3-4.7 LL 604) Dental Scheduling Coordinator ID - [id number] 22:31:00 Test Item Value Reference Range Interpretation Comments MAGNESIUM (BEAKER) (test code = 2.1 mg/dL 1.6-2.6 627) Dental Scheduling Coordinator ID - BSBASIC METABOLIC [id number] 22:31:00 Test Item Value Reference Range Interpretation Comments SODIUM (BEAKER) 140 meq/L 136-145 (test code = 381) POTASSIUM (BEAKER) 3.7 meq/L 3.5-5.1 (test code = 379) CHLORIDE (BEAKER) 104 meq/L 98-107 (test code = 382) CO2 (BEAKER) (test 21 meq/L 22-29 L code = 355) BLOOD UREA NITROGEN 32 mg/dL 7-21 H (BEAKER) (test code = 354) CREATININE (BEAKER) 5.42 mg/dL 0.57-1.25 H (test code = 358) GLUCOSE RANDOM 255 mg/dL 70-105 H (BEAKER) (test code = 652) CALCIUM (BEAKER) 7.9 mg/dL 8.4-10.2 L (test code = 697) EGFR (BEAKER) (test 11 mL/min/1.73 ESTIMA ANA GFR IS code = 1092) sq m NOT ACCURATE CREATININE CLEARANCE IN PREDICTING GLOMERULAR FILTRATION RATE . ESTIMATED GFR I S NOT APPLICABLE FOR DIALYSIS PATIEN TS. Dental Scheduling Coordinator ID - BSLACTIC ACID, [id number] 22:29:00 Test Item Value Reference Range Interpretation Comments LACTATE BLOOD ARTERIAL (2) 7.0 mmol/L 0.5-2.2 HH (BEAKER) (test code = 2874) Dental Scheduling Coordinator ID - BSPOCT-GLUCOSE [id number] 22:24:00 Test Item Value Reference Range Interpretation Comments POC-GLUCOSE METER 192 mg/dL 70-110 H : TESTED A T [facility] 6720 (BEAKER) (test code = [facility] [place], 1538) [address]: Dental Scheduling Coordinator/Techni john ID = [id number] for CA STARDO, JUNDELL CALCIUM, [id number] 22:13:00 Test Item Value Reference Range Interpretation Comments CALCIUM IONIZED (BEAKER) (test 0.99 mmol/L 1.12-1.27 L code = 698) PH, BLOOD (BEAKER) (test code = 7.44 1810) BLOOD GAS, [id number] 22:13:00 Test Item Value Reference Range Interpretation Comments PH ARTERIAL (BEAKER) (test code = 7.42 7.35-7.45 383) PCO2 ARTERIAL (BEAKER) (test code 36 mmHg 35-45 = 384) PO2 ARTERIAL (BEAKER) (test code 146 mmHg 80-90 H = 385) O2 SATURATION ARTERIAL (BEAKER) 98.9 % 96.0-97.0 H (test code = 386) HCO3 ARTERIAL (BEAKER) (test code 22 mmol/L -29 = 388) BASE EXCESS ARTERIAL (BEAKER) -1.6 mmol/L -2.0-3.0 (test code = 387) PATIENT TEMPERATURE (BEAKER) 38.2 C (test code = 1818) FIO2 (BEAKER) (test code = 1819) 40.0 % POCT-GLUCOSE [id number] 21:00:00 Test Item Value Reference Range Interpretation Comments POC-GLUCOSE METER 239 mg/dL 70-110 H : TESTED A T [facility] 6720 (BEAKER) (test code = [facility], 1538) [address]: Dental Scheduling Coordinator/Techni john ID = [id number] for CA HARRY, FATMATADELL POCT-GLUCOSE [id number] 20:59:00 Test Item Value Reference Range Interpretation Comments POC-GLUCOSE METER 279 mg/dL 70-110 H : TESTED A T [facility] 6720 (BEAKER) (test code = [facility], 1538) [address]: Dental Scheduling Coordinator/Techni john ID = [id number] for OS AFSHIN PAULSON POCT-GLUCOSE [id number] 20:58:00 Test Item Value Reference Range Interpretation Comments POC-GLUCOSE METER 276 mg/dL 70-110 H : TESTED A T [facility] 6720 (BEAKER) (test code = [facility], 1538) [address]: Dental Scheduling Coordinator/Techni john ID = [id number] for CA HARRY, JUNDELL LACTIC ACID, [id number] 19:58:00 Test Item Value Reference Range Interpretation Comments LACTATE BLOOD ARTERIAL (2) 11.0 mmol/L 0.5-2.2 HH (BEAKER) (test code = 2874) Dental Scheduling Coordinator ID - BSBASIC METABOLIC [id number] 19:55:00 Test Item Value Reference Range Interpretation Comments SODIUM (BEAKER) 140 meq/L 136-145 (test code = 381) POTASSIUM (BEAKER) 3.5 meq/L 3.5-5.1 (test code = 379) CHLORIDE (BEAKER) 104 meq/L 98-107 (test code = 382) CO2 (BEAKER) (test 18 meq/L 22-29 L code = 355) BLOOD UREA NITROGEN 31 mg/dL 7-21 H (BEAKER) (test code = 354) CREATININE (BEAKER) 5.32 mg/dL 0.57-1.25 H (test code = 358) GLUCOSE RANDOM 295 mg/dL 70-105 H (BEAKER) (test code = 652) CALCIUM (BEAKER) 7.9 mg/dL 8.4-10.2 L (test code = 697) EGFR (BEAKER) (test 11 mL/min/1.73 ESTIMA ANA GFR IS code = 1092) sq m NOT ACCURATE CREATININE CLEARANCE IN PREDICTING GLOMERULAR FILTRATION RATE . ESTIMATED GFR I S NOT APPLICABLE FOR DIALYSIS PATIEN TS. Dental Scheduling Coordinator ID - BSCALCIUM, [id number] 19:46:00 Test Item Value Reference Range Interpretation Comments CALCIUM IONIZED (BEAKER) (test 1.04 mmol/L 1.12-1.27 L code = 698) PH, BLOOD (BEAKER) (test code = 7.34 1810) [id number] 19:45:00 Test Item Value Reference Range Interpretation Comments Glucose (test code = 2345-7) 295 mg/dL 70-105 H EZE (test code = EZE) Dental Scheduling Coordinator ID - BS Lab Interpretation (test Abnormal code = 00951-7) [facility]stPotassium-[id number] 19:45:00 Test Item Value Reference Range Interpretation Comments Potassium (test code = 3.5 meq/L 3.5-5.1 2823-3) EZE (test code = EZE) Dental Scheduling Coordinator ID - BS Lab Interpretation (test Normal code = 25956-6) [id number] 19:45:00 Test Item Value Reference Range Interpretation Comments POTASSIUM (BEAKER) (test code = 3.5 meq/L 3.5-5.1 379) Dental Scheduling Coordinator ID - [id number] 19:45:00 Test Item Value Reference Range Interpretation Comments GLUCOSE RANDOM (BEAKER) (test code 295 mg/dL 70-105 H = 652) Dental Scheduling Coordinator ID - BSBLOOD GAS, [id number] 19:41:00 Test Item Value Reference Range Interpretation Comments PH ARTERIAL (BEAKER) (test code = 7.34 7.35-7.45 L 383) PCO2 ARTERIAL (BEAKER) (test code 38 mmHg 35-45 = 384) PO2 ARTERIAL (BEAKER) (test code 174 mmHg 80-90 H = 385) O2 SATURATION ARTERIAL (BEAKER) 99.1 % 96.0-97.0 H (test code = 386) HCO3 ARTERIAL (BEAKER) (test code 20 mmol/L 21-29 L = 388) BASE EXCESS ARTERIAL (BEAKER) -5.3 mmol/L -2.0-3.0 L (test code = 387) PATIENT TEMPERATURE (BEAKER) 37.8 C (test code = 1818) FIO2 (BEAKER) (test code = 1819) 40.0 % [id number] 16:59:00 Test Item Value Reference Range Interpretation Comments GLUCOSE RANDOM (BEAKER) (test code 286 mg/dL 70-105 H = 652) [id number] 16:59:00 Test Item Value Reference Range Interpretation Comments POTASSIUM (BEAKER) (test code = 3.6 meq/L 3.5-5.1 379) BASIC METABOLIC [id number] 16:59:00 Test Item Value Reference Range Interpretation Comments SODIUM (BEAKER) 140 meq/L 136-145 (test code = 381) POTASSIUM (BEAKER) 3.6 meq/L 3.5-5.1 (test code = 379) CHLORIDE (BEAKER) 105 meq/L 98-107 (test code = 382) CO2 (BEAKER) (test 18 meq/L 22-29 L code = 355) BLOOD UREA NITROGEN 30 mg/dL 7-21 H (BEAKER) (test code = 354) CREATININE (BEAKER) 5.17 mg/dL 0.57-1.25 H (test code = 358) GLUCOSE RANDOM 286 mg/dL 70-105 H (BEAKER) (test code = 652) CALCIUM (BEAKER) 7.4 mg/dL 8.4-10.2 L (test code = 697) EGFR (BEAKER) (test 11 mL/min/1.73 ESTIMA ANA GFR IS code = 1092) sq m NOT ACCURATE CREATININE CLEARANCE IN PREDICTING GLOMERULAR FILTRATION RATE . ESTIMATED GFR I S NOT APPLICABLE FOR DIALYSIS PATIEN TS. Dental Scheduling Coordinator ID - BSLACTIC ACID, [id number] 16:56:00 Test Item Value Reference Range Interpretation Comments LACTATE BLOOD ARTERIAL (2) 7.7 mmol/L 0.5-2.2 HH (BEAKER) (test code = 2874) Dental Scheduling Coordinator ID - BSOXYGEN SATURATION, [id number] 16:44:00 Test Item Value Reference Range Interpretation Comments O2 SATURATION (MEASURED) (BEAKER) 88.3 % (test code = 1455) BLOOD GAS, [id number] 16:41:00 Test Item Value Reference Range Interpretation Comments PH ARTERIAL (BEAKER) (test code = 7.31 7.35-7.45 L 383) PCO2 ARTERIAL (BEAKER) (test code 42 mmHg 35-45 = 384) PO2 ARTERIAL (BEAKER) (test code 138 mmHg 80-90 H = 385) O2 SATURATION ARTERIAL (BEAKER) 98.6 % 96.0-97.0 H (test code = 386) HCO3 ARTERIAL (BEAKER) (test code 21 mmol/L 21-29 = 388) BASE EXCESS ARTERIAL (BEAKER) -5.4 mmol/L -2.0-3.0 L (test code = 387) PATIENT TEMPERATURE (BEAKER) 36.7 C (test code = 1818) FIO2 (BEAKER) (test code = 1819) 40.0 % CBC (HEMOGRAM ONLY)2020-05-22 16:33:00 Test Item Value Reference Range Interpretation Comments WHITE BLOOD CELL COUNT (BEAKER) 18.8 K/ L 3.5-10.5 H (test code = 775) RED BLOOD CELL COUNT (BEAKER) 3.35 M/ L 4.63-6.08 L (test code = 761) HEMOGLOBIN (BEAKER) (test code = 10.6 GM/DL 13.7-17.5 L 410) HEMATOCRIT (BEAKER) (test code = 32.7 % 40.1-51.0 L 411) MEAN CORPUSCULAR VOLUME (BEAKER) 97.6 fL 79.0-92.2 H (test code = 753) MEAN CORPUSCULAR HEMOGLOBIN 31.6 pg 25.7-32.2 (BEAKER) (test code = 751) MEAN CORPUSCULAR HEMOGLOBIN CONC 32.4 GM/DL 32.3-36.5 (BEAKER) (test code = 752) RED CELL DISTRIBUTION WIDTH 12.8 % 11.6-14.4 (BEAKER) (test code = 412) PLATELET COUNT (BEAKER) (test 153 K/CU MM 150-450 code = 756) MEAN PLATELET VOLUME (BEAKER) 11.3 fL 9.4-12.4 (test code = 754) NUCLEATED RED BLOOD CELLS 0 /100 WBC 0-0 (BEAKER) (test code = 413) BLOOD GAS, [id number] 14:01:00 Test Item Value Reference Range Interpretation Comments PH ARTERIAL (BEAKER) (test code = 7.32 7.35-7.45 L 383) PCO2 ARTERIAL (BEAKER) (test code 37 mmHg 35-45 = 384) PO2 ARTERIAL (BEAKER) (test code 138 mmHg 80-90 H = 385) O2 SATURATION ARTERIAL (BEAKER) 98.7 % 96.0-97.0 H (test code = 386) HCO3 ARTERIAL (BEAKER) (test code 19 mmol/L 21-29 L = 388) BASE EXCESS ARTERIAL (BEAKER) -6.8 mmol/L -2.0-3.0 L (test code = 387) PATIENT TEMPERATURE (BEAKER) 35.7 C (test code = 1818) FIO2 (BEAKER) (test code = 1819) 50.0 % OXYGEN SATURATION, [id number] 14:00:00 Test Item Value Reference Range Interpretation Comments O2 SATURATION (MEASURED) (BEAKER) 82.8 % (test code = 1455) RAD, CHEST, 1 VIEW, NON [id number] 13:55:00Reason for exam:->post opShould this be performed at the bedside?->YesFINAL REPORT RAD, CHEST, 1 VIEW, NON DEPT INDICATION: 05/19/2020 COMPARISON: May 19, 2020 FINDINGS: Portable frontal view of the chest. IMPRESSION: Support Lines: [place] tip overlies the pulmonary outflow tract. NG tube descends below the diaphragm. Bilateral chest tubes. Lungs and pleura: Poor inspiration with basilar atelectasis and mild diffuse interstitial opacitiesNo pneumothorax.Heart and mediastinum: Stable contours. Stable surgical changes.Additional findings:None. Signed: Rachna Waller MDReport Verified Date/Time: 05/22/2020 13:55:44 Reading Location: [facility] Radiology Reading Room Electronically signed by: RACHNA WALLER MD on 020 01:55 [id number] 13:43:00 Test Item Value Reference Range Interpretation Comments D-Dimer, Quant (test code 0.81 <0.50 MG/L FEU H = 11633-5) EZE (test code = EZE) Intended Use: The D-Dimer Assay can be used to aid in the diagnosis of Deep Vein Thrombosis (DVT) and Pulmonary Embolism Disease (PED).In patients with low pre-test probability, various studies concerning STA Liatest D-dimer test have reported that with a cutoff value of 0.50 MG/L FEU, the Negative Predictive Value (NPV) regarding the exclusion of thrombosis is within 95-100% range. Lab Interpretation (test Abnormal code = 11512-3) [facility]stD-[id number] 13:43:00 Test Item Value Reference Range Interpretation Comments D-DIMER QUANTITATIVE (BEAKER) 0.81 MG/L FEU <0.50 H (test code = 671) Intended Use: The D-Dimer Assay can be used to aid in the diagnosis of Deep Vein Thrombosis (DVT) and Pulmonary Embolism Disease (PED).In patients with low pre- test probability, various studies concerning STA Liatest D-dimer test have reported that with a cutoff value of 0.50 MG/L FEU, the Negative Predictive Value (NPV) regarding the exclusion of thrombosis is within 95-100% range. Comprehensive metabolic [id number] 13:42:00 Test Item Value Reference Range Interpretation Comments Protein, Total (test 5.0 6.0- 8.3 gm/dL L code = 2885-2) Albumin (test code = 2.7 g/dL 3.5-5 L 64786-3) Alkaline Phosphatase 75 U/L 40-150 (test code = 6768-6) Total Bilirubin (test 0.6 mg/dL 0.2-1.2 code = 1975-2) Sodium (test code = 141 meq/L 094-790 8565-2) Potassium (test code = 3.5 meq/L 3.5-5.1 2823-3) Chloride (test code = 108 meq/L 98-107 H 2074-0) CO2 (test code = 19 meq/L 22-29 L 2028-9) BUN (test code = 29 mg/dL 7-21 H 3094-0) Creatinine (test code 5.13 mg/dL 0.57-1.25 H = 2160-0) Glucose (test code = 229 mg/dL 70-105 H 2345-7) Calcium (test code = 7.3 mg/dL 8.4-10.2 L 77341-4) AST (test code = 38 U/L 5-34 H 1920-8) ALT (test code = 36 U/L 6-55 1742-6) EGFR (test code = 11 mL/min/1.73 [place] [address]-3) NOT ACCURATE CREATININE CLEARANCE IN PREDICTING GLOMERULAR FILTRATION RATE . ESTIMATED GFR I S NOT APPLICABLE FOR DIALYSIS PATIENTS. EZE (test code = EZE) Dental Scheduling Coordinator ID - NTP Lab Interpretation Abnormal (test code = 56937-2) [facility]stCOMPREHENSIVE METABOLIC [id number] 13:42:00 Test Item Value Reference Range Interpretation Comments TOTAL PROTEIN 5.0 gm/dL 6.0-8.3 L (BEAKER) (test code = 770) ALBUMIN (BEAKER) 2.7 g/dL 3.5-5.0 L (test code = 1145) ALKALINE PHOSPHATASE 75 U/L 40-150 (BEAKER) (test code = 346) BILIRUBIN TOTAL 0.6 mg/dL 0.2-1.2 (BEAKER) (test code = 377) SODIUM (BEAKER) (test 141 meq/L 136-145 code = 381) POTASSIUM (BEAKER) 3.5 meq/L 3.5-5.1 (test code = 379) CHLORIDE (BEAKER) 108 meq/L 98-107 H (test code = 382) CO2 (BEAKER) (test 19 meq/L 22-29 L code = 355) BLOOD UREA NITROGEN 29 mg/dL 7-21 H (BEAKER) (test code = 354) CREATININE (BEAKER) 5.13 mg/dL 0.57-1.25 H (test code = 358) GLUCOSE RANDOM 229 mg/dL 70-105 H (BEAKER) (test code = 652) CALCIUM (BEAKER) 7.3 mg/dL 8.4-10.2 L (test code = 697) AST (SGOT) (BEAKER) 38 U/L 5-34 H (test code = 353) ALT (SGPT) (BEAKER) 36 U/L 6-55 (test code = 347) EGFR (BEAKER) (test 11 mL/min/1.73 ESTIMA ANA GFR IS code = 1092) sq m NOT ACCURATE CREATININE CLEARANCE IN PREDICTING GLOMERULAR FILTRATION RATE . ESTIMATED GFR I S NOT APPLICABLE FOR DIALYSIS PATIEN TS. Dental Scheduling Coordinator ID - [id number] 13:40:00 Test Item Value Reference Range Interpretation Comments Protime (test code = 17.5 11.9- 14.2 H 5902-2) seconds INR (test code = 1.47 <=5.90 6301-6) PTT (test code = 30.5 22.5- 36.0 27478-4) seconds EZE (test code = EZE) Effective 02/23/2019: PT Reference Range ChangeNew: 11.9-14.2 Previous: 11.7-14.7 RECOMMENDED COUMADIN/WARFARIN INR THERAPY RANGESSTANDARD DOSE: 2.0-3.0 Includes: PROPHYLAXIS for venous thrombosis, systemic embolization; TREATMENT for venous thrombosis and/or pulmonary embolus.HIGH RISK: Target INR is 2.5-3.5 for patients wiht mechanical heart valves. Lab Interpretation Abnormal (test code = 99371-8) [facility]stPHOSPHORUS2020-08-25 13:40:00 Test Item Value Reference Range Interpretation Comments PHOSPHORUS (BEAKER) (test code = 4.0 mg/dL 2.3-4.7 604) Dental Scheduling Coordinator ID - [id number] 13:40:00 Test Item Value Reference Range Interpretation Comments MAGNESIUM (BEAKER) (test code = 2.2 mg/dL 1.6-2.6 627) Dental Scheduling Coordinator ID - [id number] 13:40:00 Test Item Value Reference Range Interpretation Comments FIBRINOGEN LEVEL (BEAKER) (test 305 mg/dl 225-434 code = 658) [id number] 13:40:00 Test Item Value Reference Range Interpretation Comments PROTIME (BEAKER) (test code = 17.5 seconds 11.9-14.2 H 759) INR (BEAKER) (test code = 370) 1.47 <=5.90 PARTIAL THROMBOPLASTIN TIME 30.5 seconds 22.5-36.0 (BEAKER) (test code = 760) Effective 02/23/2019: PT Reference Range ChangeNew: 11.9-14.2 Previous: 11.7- 14.7RECOMMENDED COUMADIN/WARFARIN INR THERAPY RANGESSTANDARD DOSE: 2.0-3.0 Includes: PROPHYLAXIS for venous thrombosis, systemic embolization; TREATMENT for venous thrombosis and/or pulmonary embolus.HIGH RISK: Target INR is2.5-3.5 for patients wiht mechanical heart valves.LACTIC ACID, [id number] 13:36:00 Test Item Value Reference Range Interpretation Comments LACTATE BLOOD ARTERIAL (2) 3.9 mmol/L 0.5-2.2 H (BEAKER) (test code = 2874) Dental Scheduling Coordinator ID - NTPBLOOD GAS, [id number] 13:25:00 Test Item Value Reference Range Interpretation Comments PH ARTERIAL (BEAKER) (test code = 7.29 7.35-7.45 L 383) PCO2 ARTERIAL (BEAKER) (test code 46 mmHg 35-45 H = 384) PO2 ARTERIAL (BEAKER) (test code 59 mmHg 80-90 L = 385) O2 SATURATION ARTERIAL (BEAKER) 89.9 % 96.0-97.0 L (test code = 386) HCO3 ARTERIAL (BEAKER) (test code 22 mmol/L 21-29 = 388) BASE EXCESS ARTERIAL (BEAKER) -5.1 mmol/L -2.0-3.0 L (test code = 387) PATIENT TEMPERATURE (BEAKER) 35.5 C (test code = 1818) FIO2 (BEAKER) (test code = 1819) 50.0 % OXYGEN SATURATION, [id number] 13:23:00 Test Item Value Reference Range Interpretation Comments O2 SATURATION (MEASURED) (BEAKER) 97.8 % (test code = 1455) CBC (HEMOGRAM ONLY)2020-05-22 13:20:00 Test Item Value Reference Range Interpretation Comments WHITE BLOOD CELL COUNT (BEAKER) 23.1 K/ L 3.5-10.5 H (test code = 775) RED BLOOD CELL COUNT (BEAKER) 3.36 M/ L 4.63-6.08 L (test code = 761) HEMOGLOBIN (BEAKER) (test code = 10.8 GM/DL 13.7-17.5 L 410) HEMATOCRIT (BEAKER) (test code = 33.0 % 40.1-51.0 L 411) MEAN CORPUSCULAR VOLUME (BEAKER) 98.2 fL 79.0-92.2 H (test code = 753) MEAN CORPUSCULAR HEMOGLOBIN 32.1 pg 25.7-32.2 (BEAKER) (test code = 751) MEAN CORPUSCULAR HEMOGLOBIN CONC 32.7 GM/DL 32.3-36.5 (BEAKER) (test code = 752) RED CELL DISTRIBUTION WIDTH 12.8 % 11.6-14.4 (BEAKER) (test code = 412) PLATELET COUNT (BEAKER) (test 149 K/CU MM 150-450 L code = 756) MEAN PLATELET VOLUME (BEAKER) 11.1 fL 9.4-12.4 (test code = 754) NUCLEATED RED BLOOD CELLS 0 /100 WBC 0-0 (BEAKER) (test code = 413) HGB/HCT (H&H)-Stat [id number] 11:46:00 Test Item Value Reference Range Interpretation Comments Hemoglobin (test code = 786-4) 10.9 g/dL 13.0-16.8 L Hematocrit (test code = 4544-3) 32.0 % 40.0-50.0 L Lab Interpretation (test code = Abnormal 13731-1) [facility] [id number] 11:46:00 Test Item Value Reference Range Interpretation Comments Sodium (test code = 2951-2) 136 meq/L 136-145 Lab Interpretation (test code = Normal 53383-5) [facility] [id number] 11:46:00 Test Item Value Reference Range Interpretation Comments Potassium (test code = 2823-3) 4.1 meq/L 3.6-5.5 Lab Interpretation (test code = Normal 65183-5) [facility] NA-[facility] [id number] 11:46:00 Test Item Value Reference Range Interpretation Comments SODIUM (BEAKER) (test code = 381) 136 meq/L 136-145 POTASSIUM-STAT [id number] 11:46:00 Test Item Value Reference Range Interpretation Comments POTASSIUM (BEAKER) (test code = 4.1 meq/L 3.6-5.5 379) BLOOD GAS, [id number] 11:46:00 Test Item Value Reference Range Interpretation Comments PH ARTERIAL (BEAKER) (test code = 7.40 7.35-7.45 383) PCO2 ARTERIAL (BEAKER) (test code 41 mmHg 35-45 = 384) PO2 ARTERIAL (BEAKER) (test code 128 mmHg 80-90 H = 385) O2 SATURATION ARTERIAL (BEAKER) 98.6 % 96.0-97.0 H (test code = 386) HCO3 ARTERIAL (BEAKER) (test code 25 mmol/L 21-29 = 388) BASE EXCESS ARTERIAL (BEAKER) -0.1 mmol/L -2.0-3.0 (test code = 387) PATIENT TEMPERATURE (BEAKER) 36.0 C (test code = 1818) FIO2 (BEAKER) (test code = 1819) 100.0 % GLUCOSE-STAT [id number] 11:46:00 Test Item Value Reference Range Interpretation Comments GLUCOSE RANDOM (BEAKER) (test code 197 mg/dL 70-110 H = 652) HGB/HCT (H&H) - STAT [id number] 11:46:00 Test Item Value Reference Range Interpretation Comments HEMOGLOBIN (BEAKER) (test code = 10.9 g/dL 13.0-16.8 L 410) HEMATOCRIT (BEAKER) (test code = 32.0 % 40.0-50.0 L 411) CALCIUM, [id number] 11:44:00 Test Item Value Reference Range Interpretation Comments CALCIUM IONIZED (BEAKER) (test 1.05 mmol/L 1.12-1.27 L code = 698) PH, BLOOD (BEAKER) (test code = 7.39 1810) POTASSIUM-STAT [id number] 10:23:00 Test Item Value Reference Range Interpretation Comments POTASSIUM (BEAKER) (test code = 4.8 meq/L 3.6-5.5 379) BLOOD GAS, [id number] 10:23:00 Test Item Value Reference Range Interpretation Comments PH ARTERIAL (BEAKER) (test code = 7.47 7.35-7.45 H 383) PCO2 ARTERIAL (BEAKER) (test code 36 mmHg 35-45 = 384) PO2 ARTERIAL (BEAKER) (test code = 215 mmHg 80-90 H 385) O2 SATURATION ARTERIAL (BEAKER) 99.5 % 96.0-97.0 H (test code = 386) HCO3 ARTERIAL (BEAKER) (test code 26 mmol/L 21-29 = 388) BASE EXCESS ARTERIAL (BEAKER) 1.5 mmol/L -2.0-3.0 (test code = 387) PATIENT TEMPERATURE (BEAKER) (test 35.4 C code = 1818) FIO2 (BEAKER) (test code = 1819) 70.0 % SODIUM NA-STAT [id number] 10:23:00 Test Item Value Reference Range Interpretation Comments SODIUM (BEAKER) (test code = 381) 133 meq/L 136-145 L GLUCOSE-STAT [id number] 10:23:00 Test Item Value Reference Range Interpretation Comments GLUCOSE RANDOM (BEAKER) (test code 186 mg/dL 70-110 H = 652) HGB/HCT (H&H) - STAT [id number] 10:23:00 Test Item Value Reference Range Interpretation Comments HEMOGLOBIN (BEAKER) (test code = 10.1 g/dL 13.0-16.8 L 410) HEMATOCRIT (BEAKER) (test code = 30.0 % 40.0-50.0 L 411) Blood gas, [id number] 09:59:00 Test Item Value Reference Range Interpretation Comments pH, Alexis (test code = 2746-6) 7.41 7.32-7.42 pCO2, Alexis (test code = 755) 44 41- 51 mmHg pO2, Alexis (test code = 2705-2) 41 25- 40 mmHg H O2 Sat, Alexis (test code = 2711-0) 88.0 % 40-70 H HCO3, Alexis (test code = 31297-4) 29 mmol/L 21-29 Base Excess, Alexis (test code = 1.9 mmol/L -2-3 1927-3) Patient Temperature (test code = 32.0 C 8310-5) FIO2 (test code = 1819) 60 % Lab Interpretation (test code = Abnormal 46306-9) [facility], [id number] 09:59:00 Test Item Value Reference Range Interpretation Comments PH VENOUS (BEAKER) (test code = 7.41 7.32-7.42 701) PCO2 VENOUS (BEAKER) (test code = 44 mmHg 41-51 755) PO2 VENOUS (BEAKER) (test code = 41 mmHg 25-40 H 702) O2 SATURATION VENOUS (BEAKER) 88.0 % 40.0-70.0 H (test code = 703) HCO3 VENOUS (BEAKER) (test code = 29 mmol/L 21-29 705) BASE EXCESS VENOUS (BEAKER) (test 1.9 mmol/L -2.0-3.0 code = 704) PATIENT TEMPERATURE (BEAKER) (test 32.0 C code = 1818) FIO2 (BEAKER) (test code = 1819) 60.0 % BLOOD GAS, [id number] 09:59:00 Test Item Value Reference Range Interpretation Comments PH ARTERIAL (BEAKER) (test code = 7.40 7.35-7.45 383) PCO2 ARTERIAL (BEAKER) (test code 43 mmHg 35-45 = 384) PO2 ARTERIAL (BEAKER) (test code = 241 mmHg 80-90 H 385) O2 SATURATION ARTERIAL (BEAKER) 99.6 % 96.0-97.0 H (test code = 386) HCO3 ARTERIAL (BEAKER) (test code 27 mmol/L 21-29 = 388) BASE EXCESS ARTERIAL (BEAKER) 0.7 mmol/L -2.0-3.0 (test code = 387) PATIENT TEMPERATURE (BEAKER) (test 32.0 C code = 1818) FIO2 (BEAKER) (test code = 1819) 60.0 % GLUCOSE-STAT [id number] 09:59:00 Test Item Value Reference Range Interpretation Comments GLUCOSE RANDOM (BEAKER) (test code 200 mg/dL 70-110 H = 652) HGB/HCT (H&H) - STAT [id number] 09:59:00 Test Item Value Reference Range Interpretation Comments HEMOGLOBIN (BEAKER) (test code = 9.9 g/dL 13.0-16.8 L 410) HEMATOCRIT (BEAKER) (test code = 29.0 % 40.0-50.0 L 411) SODIUM NA-STAT [id number] 09:55:00 Test Item Value Reference Range Interpretation Comments SODIUM (BEAKER) (test code = 381) 136 meq/L 136-145 POTASSIUM-STAT [id number] 09:55:00 Test Item Value Reference Range Interpretation Comments POTASSIUM (BEAKER) (test code = 5.0 meq/L 3.6-5.5 379) SODIUM NA-STAT [id number] 08:22:00 Test Item Value Reference Range Interpretation Comments SODIUM (BEAKER) (test code = 381) 137 meq/L 136-145 POTASSIUM-STAT [id number] 08:22:00 Test Item Value Reference Range Interpretation Comments POTASSIUM (BEAKER) (test code = 3.9 meq/L 3.6-5.5 379) CALCIUM, [id number] 08:22:00 Test Item Value Reference Range Interpretation Comments CALCIUM IONIZED (BEAKER) (test 1.03 mmol/L 1.12-1.27 L code = 698) PH, BLOOD (BEAKER) (test code = 7.43 1810) BLOOD GAS, [id number] 08:22:00 Test Item Value Reference Range Interpretation Comments PH ARTERIAL (BEAKER) (test code = 7.46 7.35-7.45 H 383) PCO2 ARTERIAL (BEAKER) (test code 37 mmHg 35-45 = 384) PO2 ARTERIAL (BEAKER) (test code = 309 mmHg 80-90 H 385) O2 SATURATION ARTERIAL (BEAKER) 99.7 % 96.0-97.0 H (test code = 386) HCO3 ARTERIAL (BEAKER) (test code 26 mmol/L 21-29 = 388) BASE EXCESS ARTERIAL (BEAKER) 1.5 mmol/L -2.0-3.0 (test code = 387) PATIENT TEMPERATURE (BEAKER) (test 35.4 C code = 1818) FIO2 (BEAKER) (test code = 1819) 100.0 % GLUCOSE-STAT [id number] 08:22:00 Test Item Value Reference Range Interpretation Comments GLUCOSE RANDOM (BEAKER) (test code 126 mg/dL 70-110 H = 652) HGB/HCT (H&H) - STAT [id number] 08:22:00 Test Item Value Reference Range Interpretation Comments HEMOGLOBIN (BEAKER) (test code = 12.6 g/dL 13.0-16.8 L 410) HEMATOCRIT (BEAKER) (test code = 37.0 % 40.0-50.0 L 411) [id number] 04:58:00 Test Item Value Reference Range Interpretation Comments MAGNESIUM (BEAKER) (test code = 1.7 mg/dL 1.6-2.6 627) Dental Scheduling Coordinator TRACE SPRAGUE WBASIC METABOLIC [id number] 04:45:00 Test Item Value Reference Range Interpretation Comments SODIUM (BEAKER) 138 meq/L 136-145 (test code = 381) POTASSIUM (BEAKER) 3.7 meq/L 3.5-5.1 (test code = 379) CHLORIDE (BEAKER) 104 meq/L 98-107 (test code = 382) CO2 (BEAKER) (test 20 meq/L 22-29 L code = 355) BLOOD UREA NITROGEN 29 mg/dL 7-21 H (BEAKER) (test code = 354) CREATININE (BEAKER) 5.16 mg/dL 0.57-1.25 H (test code = 358) GLUCOSE RANDOM 98 mg/dL 70-105 (BEAKER) (test code = 652) CALCIUM (BEAKER) 7.9 mg/dL 8.4-10.2 L (test code = 697) EGFR (BEAKER) (test 11 mL/min/1.73 ESTIMA ANA GFR IS code = 1092) sq m NOT ACCURATE CREATININE CLEARANCE IN PREDICTING GLOMERULAR FILTRATION RATE . ESTIMATED GFR I S NOT APPLICABLE FOR DIALYSIS PATIEN TS. Dental Scheduling Coordinator ID Kyle SPRAGUE [id number] 04:44:00 Test Item Value Reference Range Interpretation Comments PHOSPHORUS (BEAKER) (test code = 3.3 mg/dL 2.3-4.7 604) Dental Scheduling Coordinator TRACE SPRAGUE WCBC W/PLT COUNT & AUTO [id number] 04:20:00 Test Item Value Reference Range Interpretation Comments WHITE BLOOD CELL COUNT (BEAKER) 7.1 K/ L 3.5-10.5 (test code = 775) RED BLOOD CELL COUNT (BEAKER) 3.68 M/ L 4.63-6.08 L (test code = 761) HEMOGLOBIN (BEAKER) (test code = 11.6 GM/DL 13.7-17.5 L 410) HEMATOCRIT (BEAKER) (test code = 35.3 % 40.1-51.0 L 411) MEAN CORPUSCULAR VOLUME (BEAKER) 95.9 fL 79.0-92.2 H (test code = 753) MEAN CORPUSCULAR HEMOGLOBIN 31.5 pg 25.7-32.2 (BEAKER) (test code = 751) MEAN CORPUSCULAR HEMOGLOBIN CONC 32.9 GM/DL 32.3-36.5 (BEAKER) (test code = 752) RED CELL DISTRIBUTION WIDTH 12.7 % 11.6-14.4 (BEAKER) (test code = 412) PLATELET COUNT (BEAKER) (test 178 K/CU MM 150-450 code = 756) MEAN PLATELET VOLUME (BEAKER) 11.1 fL 9.4-12.4 (test code = 754) NUCLEATED RED BLOOD CELLS 0 /100 WBC 0-0 (BEAKER) (test code = 413) NEUTROPHILS RELATIVE PERCENT 58 % (BEAKER) (test code = 429) LYMPHOCYTES RELATIVE PERCENT 29 % (BEAKER) (test code = 430) MONOCYTES RELATIVE PERCENT 7 % (BEAKER) (test code = 431) EOSINOPHILS RELATIVE PERCENT 5 % (BEAKER) (test code = 432) BASOPHILS RELATIVE PERCENT 1 % (BEAKER) (test code = 437) NEUTROPHILS ABSOLUTE COUNT 4.09 K/ L 1.78-5.38 (BEAKER) (test code = 670) LYMPHOCYTES ABSOLUTE COUNT 2.06 K/ L 1.32-3.57 (BEAKER) (test code = 414) MONOCYTES ABSOLUTE COUNT (BEAKER) 0.52 K/ L 0.30-0.82 (test code = 415) EOSINOPHILS ABSOLUTE COUNT 0.35 K/ L 0.04-0.54 (BEAKER) (test code = 416) BASOPHILS ABSOLUTE COUNT (BEAKER) 0.04 K/ L 0.01-0.08 (test code = 417) IMMATURE GRANULOCYTES-RELATIVE 0 % 0-1 PERCENT (BEAKER) (test code = 2801) POCT-GLUCOSE [id number] 22:40:00 Test Item Value Reference Range Interpretation Comments POC-GLUCOSE METER 117 mg/dL 70-110 H : Notified RN/MD: (ALICIA) (test code = TESTED AT [facility] 6720 0075) [facility], [id number]: Dental Scheduling Coordinator/Techni john ID = [id number] for [facility], [id number] 21:20:00 Test Item Value Reference Range Interpretation Comments ABO Grouping (test code = 2588) O Rh Factor (test code = 2589) POS [facility] [id number] 17:53:00 Test Item Value Reference Range Interpretation Comments POC-GLUCOSE METER 151 mg/dL 70-110 H : TESTED A T [facility] 6720 (BEAKER) (test code = KIMMY Chaney [facility], 1538) [address]: Dental Scheduling Coordinator/Techni john ID = [id number] for AVA VERA Hemoglobin [id number] 13:35:00 Test Item Value Reference Range Interpretation Comments Hemoglobin A1C (test code = 4548-4) 8.0 % 4.3-6.1 H Lab Interpretation (test code = Abnormal 57226-4) [facility]HEMOGLOBIN [id number] 13:35:00 Test Item Value Reference Range Interpretation Comments HEMOGLOBIN A1C (BEAKER) (test code = 8.0 % 4.3-6.1 H 368) POCT-GLUCOSE [id number] 12:43:00 Test Item Value Reference Range Interpretation Comments POC-GLUCOSE METER 145 mg/dL 70-110 H : TESTED A T [facility] 6720 (BEAKER) (test code = KIMMY Chaney [facility], 1538) [address]: Dental Scheduling Coordinator/Techni john ID = [id number] for AVA VERA PROTHROMBIN [id number] 11:47:00 Test Item Value Reference Range Interpretation Comments PROTIME (BEAKER) (test code = 13.1 seconds 11.9-14.2 759) INR (BEAKER) (test code = 370) 1.02 <=5.90 Effective 02/23/2019: PT Reference Range ChangeNew: 11.9-14.2 Previous: 11.7- 14.7RECOMMENDED COUMADIN/WARFARIN INR THERAPY RANGESSTANDARD DOSE: 2.0-3.0 Includes: PROPHYLAXIS for venous thrombosis, systemic embolization; TREATMENT for venous thrombosis and/or pulmonary embolus.HIGH RISK: Target INR is2.5-3.5 for patients wiht mechanical heart valves.[id number] 11:47:00 Test Item Value Reference Range Interpretation Comments PARTIAL THROMBOPLASTIN TIME 28.5 seconds 22.5-36.0 (BEAKER) (test code = 760) POCT-GLUCOSE [id number] 11:43:00 Test Item Value Reference Range Interpretation Comments POC-GLUCOSE METER 156 mg/dL 70-110 H : TESTED A T [facility] 6720 (BEAKER) (test code = KIMMY [place], 1538) [address]: Dental Scheduling Coordinator/Techni john ID = [id number] for Darcie Lacy Lipid [id number] 11:35:00 Test Item Value Reference Range Interpretation Comments Triglycerides (test 187 mg/dL code = 2571-8) Cholesterol (test code 127 mg/dL = 2093-3) HDL (test code = 25 mg/dL 5-9) LDL Calculated (test 65 mg/dL code = 28308-5) EZE (test code = EZE) Triglyceride Reference Range: Low Risk <150 Borderline 150-199 High Risk 200-499 Very High Risk >=500 Cholesterol Reference Range: Low Risk <200 Borderline 200-239 High Risk >240 HDL Cholesterol Reference Range: Low Risk >=60 High Risk <40 LDL Cholesterol Reference Range: Optimal <100 Near Optimal 100-129 Borderline 130-159 High 160-189 Very High >=190 Dental Scheduling Coordinator ID - KIMBERLY Patel [facility]stLIPID [id number] 11:35:00 Test Item Value Reference Range Interpretation Comments TRIGLYCERIDES (BEAKER) (test code = 187 mg/dL 540) CHOLESTEROL (BEAKER) (test code = 127 mg/dL 631) HDL CHOLESTEROL (BEAKER) (test code 25 mg/dL = 976) LDL CHOLESTEROL CALCULATED (BEAKER) 65 mg/dL (test code = 633) Triglyceride Reference Range: Low Risk <150 Borderline 150-199 High Risk 200-499 Very High Risk >=500Cholesterol Reference Range: Low Risk <200 Borderline 200-239 High Risk >240HDL Cholesterol Reference Range: Low Risk >=60 High Risk <40LDL Cholesterol Reference Range: Optimal <100 Near Optimal 100-129 Borderline 130-159 High 160-189 Very High >=190 Dental Scheduling Coordinator TRACE HARRIS MPlatelet Aggregation: Function [id number] 10:24:00 Test Item Value Reference Range Interpretation Comments Pathologist: (test code Ed Calvin,MD = 2622) (electronic signature) Platelets (test code = 165 150- 450 K/CU MM 2656) ADP (test code = 74 % 62-100 48431-7) Platelet Rich Plasma 204 200- 300 k/cu mm (test code = 2134) Plt. Function Screen Normal aggregation Interpretation (test results with ADP. code = 4655) No evidence of platelet dysfunction or P2Y12 inhibitor effect. EZE (test code = EZE) Platelet Function Screen results may be falsely low with platelet counts<75,000/cu mm.Dental Scheduling Coordinator ID - [id number] [facility]stPLATELET AGGREGATION: FUNCTION [id number] 10:24:00 Test Item Value Reference Range Interpretation Comments [id number] Ed Simpson MD (BEAKER) (test code = (electronic 2622) signature) PLATELET COUNT AGG 165 K/CU MM 150-450 (BEAKER) (test code = 2656) ADP (BEAKER) (test code 74 % 62-100 = 4654) PLATELET RICH 204 k/cu mm 200-300 PLASMA(BEAKER) (test code = 2134) PLATELET FUNCTION SCREEN Normal aggregation INTERPRETATION (BEAKER) results with ADP. No (test code = 4655) evidence of platelet dysfunction or P2Y12 inhibitor effect. Platelet Function Screen results may be falsely low with platelet counts<75,000/cu mm.Dental Scheduling Coordinator ID- [id number]-GLUCOSE [id number] 07:19:00 Test Item Value Reference Range Interpretation Comments POC-GLUCOSE METER 117 mg/dL 70-110 H : TESTED A T [facility] 6720 (BEAKER) (test code = KIMMY [place], 1538) [address]: Dental Scheduling Coordinator/Techni john ID = [id number] for AVA VERA BASIC METABOLIC [id number] 05:43:00 Test Item Value Reference Range Interpretation Comments SODIUM (BEAKER) 135 meq/L 136-145 L (test code = 381) POTASSIUM (BEAKER) 3.6 meq/L 3.5-5.1 (test code = 379) CHLORIDE (BEAKER) 102 meq/L 98-107 (test code = 382) CO2 (BEAKER) (test 24 meq/L 22-29 code = 355) BLOOD UREA NITROGEN 41 mg/dL 7-21 H (BEAKER) (test code = 354) CREATININE (BEAKER) 6.48 mg/dL 0.57-1.25 H (test code = 358) GLUCOSE RANDOM 121 mg/dL 70-105 H (BEAKER) (test code = 652) CALCIUM (BEAKER) 7.7 mg/dL 8.4-10.2 L (test code = 697) EGFR (BEAKER) (test 9 mL/min/1.73 ESTIMAT ED GFR IS code = 1092) sq m NOT ACCURATE CREATININE CLEARANCE IN PREDICTING GLOMERULAR FILTRATION RATE . ESTIMATED GFR I S NOT APPLICABLE FOR DIALYSIS PATIEN TS. Dental Scheduling Coordinator ID - KIMBERLY [id number] 05:29:00 Test Item Value Reference Range Interpretation Comments PHOSPHORUS (BEAKER) (test code = 4.3 mg/dL 2.3-4.7 604) Dental Scheduling Coordinator ID - KIMBERLY [id number] 05:29:00 Test Item Value Reference Range Interpretation Comments MAGNESIUM (BEAKER) (test code = 1.9 mg/dL 1.6-2.6 627) Dental Scheduling Coordinator ID - KIMBERLY MCBC W/PLT COUNT & AUTO [id number] 04:48:00 Test Item Value Reference Range Interpretation Comments WHITE BLOOD CELL COUNT (BEAKER) 7.2 K/ L 3.5-10.5 (test code = 775) RED BLOOD CELL COUNT (BEAKER) 3.54 M/ L 4.63-6.08 L (test code = 761) HEMOGLOBIN (BEAKER) (test code = 11.1 GM/DL 13.7-17.5 L 410) HEMATOCRIT (BEAKER) (test code = 33.9 % 40.1-51.0 L 411) MEAN CORPUSCULAR VOLUME (BEAKER) 95.8 fL 79.0-92.2 H (test code = 753) MEAN CORPUSCULAR HEMOGLOBIN 31.4 pg 25.7-32.2 (BEAKER) (test code = 751) MEAN CORPUSCULAR HEMOGLOBIN CONC 32.7 GM/DL 32.3-36.5 (BEAKER) (test code = 752) RED CELL DISTRIBUTION WIDTH 12.9 % 11.6-14.4 (BEAKER) (test code = 412) PLATELET COUNT (BEAKER) (test 164 K/CU MM 150-450 code = 756) MEAN PLATELET VOLUME (BEAKER) 10.8 fL 9.4-12.4 (test code = 754) NUCLEATED RED BLOOD CELLS 0 /100 WBC 0-0 (BEAKER) (test code = 413) NEUTROPHILS RELATIVE PERCENT 63 % (BEAKER) (test code = 429) LYMPHOCYTES RELATIVE PERCENT 25 % (BEAKER) (test code = 430) MONOCYTES RELATIVE PERCENT 7 % (BEAKER) (test code = 431) EOSINOPHILS RELATIVE PERCENT 5 % (BEAKER) (test code = 432) BASOPHILS RELATIVE PERCENT 1 % (BEAKER) (test code = 437) NEUTROPHILS ABSOLUTE COUNT 4.51 K/ L 1.78-5.38 (BEAKER) (test code = 670) LYMPHOCYTES ABSOLUTE COUNT 1.82 K/ L 1.32-3.57 (BEAKER) (test code = 414) MONOCYTES ABSOLUTE COUNT (BEAKER) 0.49 K/ L 0.30-0.82 (test code = 415) EOSINOPHILS ABSOLUTE COUNT 0.33 K/ L 0.04-0.54 (BEAKER) (test code = 416) BASOPHILS ABSOLUTE COUNT (BEAKER) 0.04 K/ L 0.01-0.08 (test code = 417) IMMATURE GRANULOCYTES-RELATIVE 0 % 0-1 PERCENT (BEAKER) (test code = 2801) POCT-GLUCOSE [id number] 21:49:00 Test Item Value Reference Range Interpretation Comments POC-GLUCOSE METER 124 mg/dL 70-110 H : TESTED A T [facility] 67 ([place]) (test code = [facility], 153) [address]: Dental Scheduling Coordinator/Techni john ID = [id number] for PH GREGORY RIVAS POCT-GLUCOSE [id number] 17:08:00 Test Item Value Reference Range Interpretation Comments POC-GLUCOSE METER 176 mg/dL 70-110 H : Notified RN/MD: [facility] (test code = TESTED AT [place] [address]) [facility], [address]: Dental Scheduling Coordinator/Techni john ID = [id number] for [place] MOOKIEDiannePEPEIRAIS POCT-GLUCOSE [id number] 12:21:00 Test Item Value Reference Range Interpretation Comments POC-GLUCOSE METER 207 mg/dL 70-110 H : Notified RN/MD: (ALICIA) (test code = TESTED AT [place] [address] 1538) [facility], [address]: Dental Scheduling Coordinator/Techni john ID = [id number] for CAYLA LOUIE POCT-GLUCOSE [id number] 07:30:00 Test Item Value Reference Range Interpretation Comments POC-GLUCOSE METER 139 mg/dL 70-110 H : Notified RN/MD: (BEAKER) (test code = TESTED AT [place] [address] 1538) [facility], [address]: Dental Scheduling Coordinator/Techni john ID = [id number] for CAYLA LOUIE BASIC METABOLIC [id number] 06:12:00 Test Item Value Reference Range Interpretation Comments SODIUM (BEAKER) 141 meq/L 136-145 (test code = 381) POTASSIUM (BEAKER) 3.8 meq/L 3.5-5.1 (test code = 379) CHLORIDE (BEAKER) 104 meq/L 98-107 (test code = 382) CO2 (BEAKER) (test 26 meq/L 22-29 code = 355) BLOOD UREA NITROGEN 33 mg/dL 7-21 H (BEAKER) (test code = 354) CREATININE (BEAKER) 5.78 mg/dL 0.57-1.25 H (test code = 358) GLUCOSE RANDOM 166 mg/dL 70-105 H (BEAKER) (test code = 652) CALCIUM (BEAKER) 8.0 mg/dL 8.4-10.2 L (test code = 697) EGFR (BEAKER) (test 10 mL/min/1.73 ESTIMA ANA GFR IS code = 1092) sq m NOT ACCURATE CREATININE CLEARANCE IN PREDICTING GLOMERULAR FILTRATION RATE . ESTIMATED GFR I S NOT APPLICABLE FOR DIALYSIS PATIEN TS. Dental Scheduling Coordinator ID - [id number] 05:55:00 Test Item Value Reference Range Interpretation Comments PHOSPHORUS (BEAKER) (test code = 4.3 mg/dL 2.3-4.7 604) Dental Scheduling Coordinator ID - [id number] 05:55:00 Test Item Value Reference Range Interpretation Comments MAGNESIUM (BEAKER) (test code = 2.0 mg/dL 1.6-2.6 627) Dental Scheduling Coordinator ID - EDASITroponin [id number] 05:53:00 Test Item Value Reference Range Interpretation Comments Troponin I (test code = 0.02 ng/mL 0-0.03 17596-4) EZE (test code = EZE) Troponin I (TnI) levels must be interpreted in the context of the presenting symptoms and the clinical findings. Elevated TnI levels indicate myocardial damage, but are not specific for ischemic heart disease. Elevated TnI levels are seen in patients with other cardiac conditions (including myocarditis and congestive heart failure), and slight TnI elevations occur in patients with other conditions, including sepsis, renal failure, acidosis, acute neurological disease, and persistent tachyarrhythmia.Opera tor ID - [id number] Lab Interpretation (test Normal code = 36737-7) [facility] [id number] 05:53:00 Test Item Value Reference Range Interpretation Comments TROPONIN I (BEAKER) (test code = 0.02 ng/mL 0.00-0.03 397) Troponin I (TnI) levels must be interpreted in the context of the presenting symptoms and the clinical findings. Elevated TnI levels indicate myocardial damage, but are not specific for ischemic heart disease. Elevated TnI levels are seen in patients with other cardiac conditions (including myocarditis and congestive heart failure), and slight TnI elevations occur in patients with other conditions, including sepsis, renal failure, acidosis, acute neurological disease, and persistent tachyarrhythmia.Dental Scheduling Coordinator ID - [id number] W/PLT COUNT & AUTO [id number] 05:27:00 Test Item Value Reference Range Interpretation Comments WHITE BLOOD CELL COUNT (BEAKER) 6.5 K/ L 3.5-10.5 (test code = 775) RED BLOOD CELL COUNT (BEAKER) 3.63 M/ L 4.63-6.08 L (test code = 761) HEMOGLOBIN (BEAKER) (test code = 11.3 GM/DL 13.7-17.5 L 410) HEMATOCRIT (BEAKER) (test code = 34.9 % 40.1-51.0 L 411) MEAN CORPUSCULAR VOLUME (BEAKER) 96.1 fL 79.0-92.2 H (test code = 753) MEAN CORPUSCULAR HEMOGLOBIN 31.1 pg 25.7-32.2 (BEAKER) (test code = 751) MEAN CORPUSCULAR HEMOGLOBIN CONC 32.4 GM/DL 32.3-36.5 (BEAKER) (test code = 752) RED CELL DISTRIBUTION WIDTH 13.2 % 11.6-14.4 (BEAKER) (test code = 412) PLATELET COUNT (BEAKER) (test 163 K/CU MM 150-450 code = 756) MEAN PLATELET VOLUME (BEAKER) 10.7 fL 9.4-12.4 (test code = 754) NUCLEATED RED BLOOD CELLS 0 /100 WBC 0-0 (BEAKER) (test code = 413) NEUTROPHILS RELATIVE PERCENT 64 % (BEAKER) (test code = 429) LYMPHOCYTES RELATIVE PERCENT 23 % (BEAKER) (test code = 430) MONOCYTES RELATIVE PERCENT 8 % (BEAKER) (test code = 431) EOSINOPHILS RELATIVE PERCENT 4 % (BEAKER) (test code = 432) BASOPHILS RELATIVE PERCENT 1 % (BEAKER) (test code = 437) NEUTROPHILS ABSOLUTE COUNT 4.17 K/ L 1.78-5.38 (BEAKER) (test code = 670) LYMPHOCYTES ABSOLUTE COUNT 1.49 K/ L 1.32-3.57 (BEAKER) (test code = 414) MONOCYTES ABSOLUTE COUNT (BEAKER) 0.53 K/ L 0.30-0.82 (test code = 415) EOSINOPHILS ABSOLUTE COUNT 0.27 K/ L 0.04-0.54 (BEAKER) (test code = 416) BASOPHILS ABSOLUTE COUNT (BEAKER) 0.04 K/ L 0.01-0.08 (test code = 417) IMMATURE GRANULOCYTES-RELATIVE 0 % 0-1 PERCENT (BEAKER) (test code = 2801) TROPONIN [id number] 00:39:00 Test Item Value Reference Range Interpretation Comments TROPONIN I (BEAKER) (test code = 0.02 ng/mL 0.00-0.03 397) Troponin I (TnI) levels must be interpreted in the context of the presenting symptoms and the clinical findings. Elevated TnI levels indicate myocardial damage, but are not specific for ischemic heart disease. Elevated TnI levels are seen in patients with other cardiac conditions (including myocarditis and congestive heart failure), and slight TnI elevations occur in patients with other conditions, including sepsis, renal failure, acidosis, acute neurological disease, and persistent tachyarrhythmia.Dental Scheduling Coordinator ID - DBPOCT-GLUCOSE METER 2020-05-19 21:44:00 Test Item Value Reference Range Interpretation Comments POC-GLUCOSE METER 209 mg/dL 70-110 H : TESTED A T [facility] 67[address] ([place]) (test code = KIMMY Chaney [place], 1538) 509[address]: Dental Scheduling Coordinator/Techni john ID = [id number] for PH GREGORY RIVAS POCT-GLUCOSE [id number] 20:06:00 Test Item Value Reference Range Interpretation Comments POC-GLUCOSE METER 134 mg/dL 70-110 H : TESTED A T [facility] 6720 ([place]) (test code = KIMMY Chaney [facility], 1538) [address]: Dental Scheduling Coordinator/Techni john ID = [id number] for AP ERIC LEMUS HEMODIALYSIS [id number] 18:47:00ErmDacia schroeder RN 05/19/2020 6:47 PMLab Results Component Value Date HEPBSAG Nonreactive 05/18/2020 ]Lab Results Component Value Date GLUCOSE 168 (H) 05/19/2020 CALCIUM 7.9 (L) 05/19/2020 NA 137 05/19/2020 K 3.6 05/19/2020 CO2 23 05/19/2020 CL 102 05/19/2020 BUN 48 (H) 05/19/2020 CREATININE6.00 (H) 05/19/2020 Lab Results Component Value Date WBC 7.3 05/19/2020 HGB 12.2 (L) 05/19/2020 HCT 35.2 (L) 05/19/2020 MCV 93.9 (H) 05/19/2020 PLT 192 05/19/2020 Verified order and secured HD consent. Verified patient's identification, full name, MRN and date of . HD treatment completed for 3.5 hours via left AVF, no problem cannulation. Net UF of 1840mls. BP went lower than parameters Mannitol 12.5 g given IV x2. Endorsed to nurse accordingly.[facility]st[facility]ATE[facility] AGGREGATION: FUNCTION [id number] 15:53:00 Test Item Value Reference Range Interpretation Comments [id number] Rayne Stratton MD (BEAKER) (test code = (electronic 6372) signature) PLATELET COUNT AGG 240 K/CU MM 150-450 (BEAKER) (test code = 2656) ADP (BEAKER) (test code < % 62-100 L = 4654) PLATELET RICH 276 k/cu mm 200-300 PLASMA(BEAKER) (test code = 2134) PLATELET FUNCTION SCREEN Decreased aggregation INTERPRETATION (BEAKER) with ADP which (test code = 4655) indicates platelet dysfunction that may be due to medication effect, uremia, or other platelet function disorders. Clinical correlation is required. Platelet Function Screen results may be falsely low with platelet counts<75,000/cu mm.Dental Scheduling Coordinator ID- [id number] AGGREGATION: FUNCTION SCREEN 2020-05-19 15:47:00 Test Item Value Reference Range Interpretation Comments [id number] Rayne Stratton MD (BEAKER) (test code = (electronic signature) 2622) PLATELET COUNT AGG 171 K/CU MM 150-450 (BEAKER) (test code = 2656) ADP (BEAKER) (test code 24 % 62-100 L = 4654) PLATELET RICH 213 k/cu mm 200-300 PLASMA(BEAKER) (test code = 2134) PLATELET FUNCTION Pattern of SCREEN INTERPRETATION disaggregation present (BEAKER) (test code = with ADP which may be 4655) characteristic of P2Y12 inhibitor effect. Correlation with medication history is required. Platelet Function Screen results may be falsely low with platelet counts<75,000/cu mm.Dental Scheduling Coordinator ID- [id number] [id number] 14:19:00 Test Item Value Reference Range Interpretation Comments TROPONIN I (BEAKER) (test code = 0.03 ng/mL 0.00-0.03 397) Troponin I (TnI) levels must be interpreted in the context of the presenting symptoms and the clinical findings. Elevated TnI levels indicate myocardial damage, but are not specific for ischemic heart disease. Elevated TnI levels are seen in patients with other cardiac conditions (including myocarditis and congestive heart failure), and slight TnI elevations occur in patients with other conditions, including sepsis, renal failure, acidosis, acute neurological disease, and persistent tachyarrhythmia.Dental Scheduling Coordinator ID - KIMBERLY MRAD, CHEST, 1 VIEW, NON [id number] 13:26:00Reason for exam:->chest painShould this be performed at the bedside?->YesFINAL REPORT History: Chest pain Comparison: 05/18/2020 Findings: The lungs are clear. No pleural effusions or pneumothorax. The heart shadow is normal in size. The thoracic aorta is mildly tortuous. Degenerative changes are present in the spine. Impression: No evidence of acutecardiopulmonary disease. Signed: Hunter Monroe MDReport Verified Date/Time: 05/19/2020 13:26:01 Reading Location: [address] Transitional Reading Room POCT-GLUCOSE [id number] 12:29:00 Test Item Value Reference Range Interpretation Comments POC-GLUCOSE METER 177 mg/dL 70-110 H : TESTED A T [facility] 6720 (BEAKER) (test code = [facility], 1538) 920[address]: Dental Scheduling Coordinator/Techni john ID = [id number] for TAJ SANCHEZ HEMOGLOBIN [id number] 10:42:00 Test Item Value Reference Range Interpretation Comments HEMOGLOBIN A1C (BEAKER) (test code = 8.1 % 4.3-6.1 H 368) POCT-GLUCOSE [id number] 09:06:00 Test Item Value Reference Range Interpretation Comments POC-GLUCOSE METER 171 mg/dL 70-110 H : TESTED A T [facility] 6720 (BEAKER) (test code = [facility] Zuldi [facility], 1538) 76[address]: Dental Scheduling Coordinator/Techni john ID = [id number] for TAJ SANCHEZ BASIC METABOLIC [id number] 05:40:00 Test Item Value Reference Range Interpretation Comments SODIUM (BEAKER) 137 meq/L 136-145 (test code = 381) POTASSIUM (BEAKER) 3.6 meq/L 3.5-5.1 (test code = 379) CHLORIDE (BEAKER) 102 meq/L 98-107 (test code = 382) CO2 (BEAKER) (test 23 meq/L 22-29 code = 355) BLOOD UREA NITROGEN 48 mg/dL 7-21 H (BEAKER) (test code = 354) CREATININE (BEAKER) 6.00 mg/dL 0.57-1.25 H (test code = 358) GLUCOSE RANDOM 168 mg/dL 70-105 H (BEAKER) (test code = 652) CALCIUM (BEAKER) 7.9 mg/dL 8.4-10.2 L (test code = 697) EGFR (BEAKER) (test 10 mL/min/1.73 ESTIMA ANA GFR IS code = 1092) sq m NOT ACCURATE CREATININE CLEARANCE IN PREDICTING GLOMERULAR FILTRATION RATE . ESTIMATED GFR I S NOT APPLICABLE FOR DIALYSIS PATIEN TS. Dental Scheduling Coordinator ID - KIMBERLY [id number] 05:35:00 Test Item Value Reference Range Interpretation Comments PHOSPHORUS (BEAKER) (test code = 5.2 mg/dL 2.3-4.7 H 604) Dental Scheduling Coordinator ID - KIMBERLY [id number] 05:35:00 Test Item Value Reference Range Interpretation Comments MAGNESIUM (BEAKER) (test code = 1.9 mg/dL 1.6-2.6 627) Dental Scheduling Coordinator ID - KIMBERLY MCBC W/PLT COUNT & AUTO [id number] 05:08:00 Test Item Value Reference Range Interpretation Comments WHITE BLOOD CELL COUNT (BEAKER) 7.3 K/ L 3.5-10.5 (test code = 775) RED BLOOD CELL COUNT (BEAKER) 3.75 M/ L 4.63-6.08 L (test code = 761) HEMOGLOBIN (BEAKER) (test code = 12.2 GM/DL 13.7-17.5 L 410) HEMATOCRIT (BEAKER) (test code = 35.2 % 40.1-51.0 L 411) MEAN CORPUSCULAR VOLUME (BEAKER) 93.9 fL 79.0-92.2 H (test code = 753) MEAN CORPUSCULAR HEMOGLOBIN 32.5 pg 25.7-32.2 H (BEAKER) (test code = 751) MEAN CORPUSCULAR HEMOGLOBIN CONC 34.7 GM/DL 32.3-36.5 (BEAKER) (test code = 752) RED CELL DISTRIBUTION WIDTH 13.1 % 11.6-14.4 (BEAKER) (test code = 412) PLATELET COUNT (BEAKER) (test 192 K/CU MM 150-450 code = 756) MEAN PLATELET VOLUME (BEAKER) 10.3 fL 9.4-12.4 (test code = 754) NUCLEATED RED BLOOD CELLS 0 /100 WBC 0-0 (BEAKER) (test code = 413) NEUTROPHILS RELATIVE PERCENT 65 % (BEAKER) (test code = 429) LYMPHOCYTES RELATIVE PERCENT 24 % (BEAKER) (test code = 430) MONOCYTES RELATIVE PERCENT 8 % (BEAKER) (test code = 431) EOSINOPHILS RELATIVE PERCENT 4 % (BEAKER) (test code = 432) BASOPHILS RELATIVE PERCENT 0 % (BEAKER) (test code = 437) NEUTROPHILS ABSOLUTE COUNT 4.70 K/ L 1.78-5.38 (BEAKER) (test code = 670) LYMPHOCYTES ABSOLUTE COUNT 1.74 K/ L 1.32-3.57 (BEAKER) (test code = 414) MONOCYTES ABSOLUTE COUNT (BEAKER) 0.55 K/ L 0.30-0.82 (test code = 415) EOSINOPHILS ABSOLUTE COUNT 0.26 K/ L 0.04-0.54 (BEAKER) (test code = 416) BASOPHILS ABSOLUTE COUNT (BEAKER) 0.02 K/ L 0.01-0.08 (test code = 417) IMMATURE GRANULOCYTES-RELATIVE 0 % 0-1 PERCENT (BEAKER) (test code = 2801) SARS-COV2/RT-PCR ([facility])2020-05-18 23:20:00 Test Item Value Reference Range Interpretation Comments SARS-COV2/RT-PCR (test Negative Not Detected, Negative, code = 3770148) See external report for linked test SARS-COV-2 PERFORMING LAB [facility] (test code = 6544252) Negative result for this test determines that SARS-CoV-2 RNA was not present in the specimen above the Limit of Detection (LOD). However, Negative results do not preclude SARS-CoV-2 infection and should not be used as the sole basis for treatment or patient management decisions. Negative results mustbe combined with clinical observations, patient history, and epidemiological information. A false negative result may occur if a specimen is improperly collected, transported or handled. A false negative result should be considered if patient's recent exposures or clinical presentation indicate that COVID-19 (SARS-CoV-2) is likely and diagnostic tests for other causes of illness are negative. Re-testing should be considered in cases of suspected false negatives.The limit of detection for this assay is 800 copies/mL.This SARS CoV-2 test is a real-time RT-PCR test intended for the qualitative detection of nucleic acid from SARS-CoV-2 in a nasopharyngeal swab specimen collected from individuals susp ected of COVID-19 by their healthcare provider.This test has not been Food and Drug Administration (FDA) cleared or approved. This is a modified version of an approved Emergency Use Authorization (EUA) and is in the process of review by the FDA. Once authorized by the FDA, the issued EUA will be effective until the declaration that circumstances exist justifying the authorization of the emergency use of in vitro diagnostic tests for detection and/or diagnosis of COVID-19 is terminated under Section 564(b)(2) of the Act or the EUA is revoked under Section 564(g) of the Act.Fact Sheet for Healthcare Providers:https://www.[employer]/sites/default/files/product/documents/Fact_Shee v_XB_Tneuvwuhk_Bxmr_UZAJ-JsK-7.pdfFact Sheet for Healthcare Patients:https://www.[employer]/sites/default/files/product/ documents/Rnfe_Dbmee_Ktaoqpqu_Dbgl_HQCD-EpD-8.pdfPerforming Laboratory:[facility], [place] [address]BBDC-IRTLGTD METER 2020-05-18 22:35:00 Test Item Value Reference Range Interpretation Comments POC-GLUCOSE METER 266 mg/dL 70-110 H : TESTED A T [facility] 67[address] (BEAKER) (test code = KIMMY Chaney [facility], 1538) 657[address]: Dental Scheduling Coordinator/Techni john ID = [id number] for FITO TIMMONS Hepatitis B surface [id number] 17:48:00 Test Item Value Reference Range Interpretation Comments HBsAg Screen (test code Nonreactive Nonreactive = 5195-3) EZE (test code = EZE) Specimen is considered negative for HBsAg. Lab Interpretation (test Normal code = 55121-7) [facility]stTSH/Free T4 If [id number] 17:48:00 Test Item Value Reference Range Interpretation Comments TSH (test code = 19068-7) 1.118 0.350- 4.940 uIU/mL EZE (test code = EZE) Dental Scheduling Coordinator ID - DB Lab Interpretation (test Normal code = 95654-7) [facility]stHEPATITIS B SURFACE [id number] 17:48:00 Test Item Value Reference Range Interpretation Comments HEPATITIS B SURFACE ANTIGEN (2) Nonreactive Nonreactive (BEAKER) (test code = 2585) Specimen is considered negative for HBsAg.TSH/FREE T4 IF [id number] 17:48:00 Test Item Value Reference Range Interpretation Comments THYROID STIMULATING HORMONE 1.118 uIU/mL 0.350-4.940 (BEAKER) (test code = 772) Dental Scheduling Coordinator ID - DBRAD, CHEST, 1 VIEW, NON [id number] 17:39:00Reason for exam:- >chest painShould this be performed at the bedside?->YesFINAL REPORT TECHNIQUE: Frontal view of the chest. INDICATION: chest pain COMPARISON: None. FINDINGS: LINES/TUBES: None. LUNGS: The lungs are well inflated and clear. No consolidation or pulmonary edema. PLEURA: No pneumothorax or significant pleural effusion. HEART AND MEDIASTINUM: The cardiomediastinal silhouette is within normal limits. SOFT TISSUES AND BONES: Unremarkable. IMPRESSION:No acute cardiopulmonary abnormalities. Signed: Phoebe Carter MDReport VerifiedDate/Time: 05/18/2020 17:39:45 Reading Location: [address] Transitional Reading Room BASIC METABOLIC [id number] 17:32:00 Test Item Value Reference Range Interpretation Comments SODIUM (BEAKER) 135 meq/L 136-145 L (test code = 381) POTASSIUM (BEAKER) 3.4 meq/L 3.5-5.1 L (test code = 379) CHLORIDE (BEAKER) 98 meq/L 98-107 (test code = 382) CO2 (BEAKER) (test 26 meq/L 22-29 code = 355) BLOOD UREA NITROGEN 42 mg/dL 7-21 H (BEAKER) (test code = 354) CREATININE (BEAKER) 5.68 mg/dL 0.57-1.25 H (test code = 358) GLUCOSE RANDOM 278 mg/dL 70-105 H (BEAKER) (test code = 652) CALCIUM (BEAKER) 8.3 mg/dL 8.4-10.2 L (test code = 697) EGFR (BEAKER) (test 10 mL/min/1.73 ESTIMA ANA GFR IS code = 1092) sq m NOT ACCURATE CREATININE CLEARANCE IN PREDICTING GLOMERULAR FILTRATION RATE . ESTIMATED GFR I S NOT APPLICABLE FOR DIALYSIS PATIEN TS. Dental Scheduling Coordinator ID - DBHepatic function [id number] 17:26:00 Test Item Value Reference Range Interpretation Comments Protein, Total (test code = 7.5 6.0- 8.3 gm/dL 2885-2) Albumin (test code = 4.0 g/dL 3.5-5 76872-3) Total Bilirubin (test code = 0.5 mg/dL 0.2-1.2 1975-2) Bilirubin, Direct (test code 0.2 mg/dL 0.1-0.5 = 1968-7) Alkaline Phosphatase (test 113 U/L 40-150 code = 6768-6) AST (test code = 1920-8) 40 U/L 5-34 H ALT (test code = 1742-6) 55 U/L 6-55 EZE (test code = EZE) Dental Scheduling Coordinator ID - DB Lab Interpretation (test Abnormal code = 01396-1) [facility] HillcrestPHOSPHORUS2020-08-21 17:26:00 Test Item Value Reference Range Interpretation Comments PHOSPHORUS (BEAKER) (test code = 4.1 mg/dL 2.3-4.7 604) Dental Scheduling Coordinator ID - [id number] 17:26:00 Test Item Value Reference Range Interpretation Comments MAGNESIUM (BEAKER) (test code = 1.9 mg/dL 1.6-2.6 627) Dental Scheduling Coordinator ID - DBLIPID [id number] 17:26:00 Test Item Value Reference Range Interpretation Comments TRIGLYCERIDES (BEAKER) (test code = 388 mg/dL 540) CHOLESTEROL (BEAKER) (test code = 183 mg/dL 631) HDL CHOLESTEROL (BEAKER) (test code 30 mg/dL = 976) LDL CHOLESTEROL CALCULATED (BEAKER) 75 mg/dL (test code = 633) Triglyceride Reference Range: Low Risk <150 Borderline 150-199 High Risk 200-499 Very High Risk >=500Cholesterol Reference Range: Low Risk <200 Borderline 200-239 High Risk >240HDL Cholesterol Reference Range: Low Risk >=60 High Risk <40LDL Cholesterol Reference Range: Optimal <100 Near Optimal 100-129 Borderline 130-159 High 160-189 Very High >=190 Dental Scheduling Coordinator ID - DBHEPATIC FUNCTION [id number] 17:26:00 Test Item Value Reference Range Interpretation Comments TOTAL PROTEIN (BEAKER) (test code = 7.5 gm/dL 6.0-8.3 770) ALBUMIN (BEAKER) (test code = 1145) 4.0 g/dL 3.5-5.0 BILIRUBIN TOTAL (BEAKER) (test code 0.5 mg/dL 0.2-1.2 = 377) BILIRUBIN DIRECT (BEAKER) (test 0.2 mg/dL 0.1-0.5 code = 706) ALKALINE PHOSPHATASE (BEAKER) (test 113 U/L 40-150 code = 346) AST (SGOT) (BEAKER) (test code = 40 U/L 5-34 H 353) ALT (SGPT) (BEAKER) (test code = 55 U/L 6-55 347) Dental Scheduling Coordinator ID - DBPT/[id number] 17:10:00 Test Item Value Reference Range Interpretation Comments PROTIME (BEAKER) (test code = 12.7 seconds 11.9-14.2 759) INR (BEAKER) (test code = 370) 0.98 <=5.90 PARTIAL THROMBOPLASTIN TIME 22.7 seconds 22.5-36.0 (BEAKER) (test code = 760) Effective 02/23/2019: PT Reference Range ChangeNew: 11.9-14.2 Previous: 11.7- 14.7RECOMMENDED COUMADIN/WARFARIN INR THERAPY RANGESSTANDARD DOSE: 2.0-3.0 Includes: PROPHYLAXIS for venous thrombosis, systemic embolization; TREATMENT for venous thrombosis and/or pulmonary embolus.HIGH RISK: Target INR is2.5-3.5 for patients wiht mechanical heart valves.CBC W/PLT COUNT & AUTO [id number] 17:00:00 Test Item Value Reference Range Interpretation Comments WHITE BLOOD CELL COUNT (BEAKER) 6.8 K/ L 3.5-10.5 (test code = 775) RED BLOOD CELL COUNT (BEAKER) 4.22 M/ L 4.63-6.08 L (test code = 761) HEMOGLOBIN (BEAKER) (test code = 13.6 GM/DL 13.7-17.5 L 410) HEMATOCRIT (BEAKER) (test code = 40.1 % 40.1-51.0 411) MEAN CORPUSCULAR VOLUME (BEAKER) 95.0 fL 79.0-92.2 H (test code = 753) MEAN CORPUSCULAR HEMOGLOBIN 32.2 pg 25.7-32.2 (BEAKER) (test code = 751) MEAN CORPUSCULAR HEMOGLOBIN CONC 33.9 GM/DL 32.3-36.5 (BEAKER) (test code = 752) RED CELL DISTRIBUTION WIDTH 13.2 % 11.6-14.4 (BEAKER) (test code = 412) PLATELET COUNT (BEAKER) (test 223 K/CU MM 150-450 code = 756) MEAN PLATELET VOLUME (BEAKER) 10.3 fL 9.4-12.4 (test code = 754) NUCLEATED RED BLOOD CELLS 0 /100 WBC 0-0 (BEAKER) (test code = 413) NEUTROPHILS RELATIVE PERCENT 67 % (BEAKER) (test code = 429) LYMPHOCYTES RELATIVE PERCENT 24 % (BEAKER) (test code = 430) MONOCYTES RELATIVE PERCENT 6 % (BEAKER) (test code = 431) EOSINOPHILS RELATIVE PERCENT 3 % (BEAKER) (test code = 432) BASOPHILS RELATIVE PERCENT 1 % (BEAKER) (test code = 437) NEUTROPHILS ABSOLUTE COUNT 4.53 K/ L 1.78-5.38 (BEAKER) (test code = 670) LYMPHOCYTES ABSOLUTE COUNT 1.65 K/ L 1.32-3.57 (BEAKER) (test code = 414) MONOCYTES ABSOLUTE COUNT (BEAKER) 0.38 K/ L 0.30-0.82 (test code = 415) EOSINOPHILS ABSOLUTE COUNT 0.19 K/ L 0.04-0.54 (BEAKER) (test code = 416) BASOPHILS ABSOLUTE COUNT (BEAKER) 0.04 K/ L 0.01-0.08 (test code = 417) IMMATURE GRANULOCYTES-RELATIVE 0 % 0-1 PERCENT (BEAKER) (test code = 2801) POCT-GLUCOSE [id number] 15:55:00 Test Item Value Reference Range Interpretation Comments POC-GLUCOSE METER 233 mg/dL 70-110 H : TESTED [place] T [facility] 6720 (BEAKER) (test code = KIMMY [place], 1538) [address]: Dental Scheduling Coordinator/Techni john ID = [id number] for AVA VERA
[2020-06-25 20:22] LABS: Protime INR 1.06
[2020-06-25 20:24] LABS: Absolute Lymphocytes (CBC) 1.9 K/uL (0.7-4.9); Basophils % 0.7 % (0-1.3); Hematocrit 36.6 % (39.6-49.0); Lymphocytes % 23.9 % (15.3-44.8); MPV 8.6 fL (7.6-11.3); RBC Red Blood Cell Count 4.11 M/uL (4.33-5.43)
[2020-06-25 20:29] LABS: Albumin 3.1 g/dL (3.4-5.0); Bilirubin Direct 0.1 mg/dL (0-0.2); Bilirubin Total 0.4 mg/dL (0.2-1.0); Magnesium 1.9 mg/dL (1.8-2.4); Potassium 3.4 mmol/L (3.5-5.1); Protein, Total 7.7 g/dL (6.4-8.2); Troponin (Emerg Dept Use Only) 0.02 ng/mL (0.0-0.045)
--- NOTE | 2020-06-25 21:27 | RAD REPORT ---
EXAM DESCRIPTION: CT - Chest Abd Pelvis Wo Con - 06/25/2020 9:09 pm CLINICAL HISTORY: Chest and abdominal pain COMPARISON: CT 2016 TECHNIQUE: Computed axial tomography of the chest, abdomen and pelvis was obtained. Oral contrast wa s given. IV contrast was not requested. All CT scans are performed using dose optimization technique as appropriate and may include automated exposure control or mA/KV adjustment according to patient size. FINDINGS: The evaluation of mediastinum, cathi, vessels and solid organs is limited secondary to the lack of IV contrast administration Postsurgical changes of a CABG. Stranding within the mediastinum likely normal postsurgical change. Small to moderate right and small left pleural effusions effusions with a few areas of subsegmental a telectasis. Subpleural sub centimeter nodular density right lung unchanged likely benign No mediastinal hematoma. The liver, spleen, pancreas, adrenals appear grossly normal. Small low-density renal mass is nonspeci fic without IV contrast but presumably cysts. There is no evidence of diverticulitis. Normal appendix. Postsurgical changes involve the spine IMPRESSION: Small to moderate right and small left pleural effusions No acute abnormality involving the abdomen/pelvis
--- NOTE | 2020-06-25 21:28 | RAD REPORT ---
EXAM DESCRIPTION: Watson Single View06/25/2020 8:20 pm CLINICAL HISTORY: Chest pain COMPARISON: December 2019 FINDINGS: The lungs appear clear of acute infiltrate. The heart is upper limits normal size Postsurgical changes involve the chest. Small right pleural effusion
--- NOTE | 2020-06-25 22:26 | ER ---
Nurse's Notes [facility] Name: Larry Seth Jr Age: 65 yrs Sex: Male : 1955 Arrival Date: 06/25/2020 Time: 19:17 Bed 15 Private MD: Misael Charlton B Diagnosis: Pleural effusion in other conditions classified elsewhere Presentation: 06/25 19:20 Chief complaint: Patient states: I am having left side pain that started about 3 weeks jb4 ago, the pain has gotten worse and I feel bubbles on the left side of my abdomen around the base of my lungs when I take a deep breathe. The bubbles started yesterday. Coronavirus screen: Client denies travel out of the [place] in the last 14 days. At this time, the client does not indicate any symptoms associated with coronavirus-19. Ebola Screen: No symptoms or risks identified at this time. Initial Sepsis Screen: Does the patient meet any 2 criteria? No. Patient's initial sepsis screen is negative. Does the patient have a suspected source of infection? No. Patient's initial sepsis screen is negative. Risk Assessment: Do you want to hurt yourself or someone else? Patient reports no desire to harm self or others. Onset of symptoms was June 24, 2020. Transition of care: patient was not received from another setting of care. 19:20 Method Of Arrival: Wheelchair jb4 19:20 Acuity: JUAN CARLOS 3 jb4 Historical: - Allergies: 19:26 Aleve; jb4 19:26 amlodipine; jb4 19:26 Ceftin; jb4 19:26 Codeine; jb4 19:26 HYDROCODONE; jb4 19:26 Tramadol HCl; jb4 19:33 Sulfa (Sulfonamide Antibiotics); mg2 19:33 Latex, Natural Rubber; mg2 - Home Meds: 19:26 aspirin 81 mg Oral TbEC 1 tab once daily [Active]; atorvastatin 80 mg Oral tab 1 tab jb4 once daily [Active]; clopidogrel 75 mg Oral tab 1 tab once daily [Active]; duloxetine 20 mg oral cpDR 1 cap [Active]; furosemide 80 mg oral tab 1 tab once daily [Active]; Novolin R Sub-Q 30 units 3 times per day daily [Active]; metoprolol succinate 50 mg oral Tb24 2 tabs once daily [Active]; 19:33 gabapentin 300 mg oral cap 1 cap 3 times per day [Active]; amiodarone 200 mg Oral tab 1 mg2 tab 2 times per day [Active]; DIALYVITE 800 0.8 mg oral tab [Active]; Tresiba FlexTouch U-100 100 unit/mL (3 mL) subcutaneous inpn 75 units daily [Active]; hydromorphone 2 mg Oral tab [Active]; Coricidin HBP oral oral [Active]; - PMHx: 19:26 Chronic pain; COPD; Diabetes - IDDM; GERD; Hypertension; restless leg syndrome; jb4 - PSHx: 19:26 BACK SURG; Cholecystectomy; Hernia repair; Heart Surgery; jb4 - Immunization history:: Adult Immunizations up to date. - Social history:: Smoking status: Patient reports the use of cigarette tobacco products, Patient/guardian denies using alcohol, street drugs. Screenin:37 Abuse screen: Denies threats or abuse. Denies injuries from another. Nutritional ca1 screening: No deficits noted. Tuberculosis screening: No symptoms or risk factors identified. Fall Risk IV access (20 points). Gait- Impaired (20 pts.). Total Huertas Fall Scale indicates High Risk Score (45 or more points). Fall prevention measures have been instituted. Side Rails Up X 2 As available patient and family educated on Fall Prevention Program and Strategies. Assessment: 19:37 General: Appears in no apparent distress. uncomfortable, Behavior is calm, cooperative, ca1 appropriate for age. Pain: Complains of pain in left upper quadrant and left lower quadrant Pain does not radiate. Pain currently is 8 out of 10 on a pain scale. Quality of pain is described as feels like bubbles in there Pain began 2-3 days ago. Is continuous. Neuro: Level of Consciousness is awake, alert, obeys commands, Oriented to person, place, time, situation. Cardiovascular: Heart tones S1 S2 present Capillary refill < 3 seconds Patient's skin is warm and dry. Rhythm is sinus rhythm. Respiratory: Airway is patent Trachea midline Respiratory effort is even, unlabored, Respiratory pattern is regular, symmetrical, Breath sounds are clear bilaterally. GI: Abdomen is round non-distended, Pt as surgical incision on mid upper abdomen to midsternal, vertical. Surgical incision on L upper abdomen, horizonal. Surgical incisions, dry, dressing intact. Appears dry, pink. Bowel sounds present X 4 quads. Abd is soft X 4 quads Abdomen is tender to palpation in left upper quadrant. : No signs and/or symptoms were reported regarding the genitourinary system. EENT: No signs and/or symptoms were reported regarding the EENT system. Derm: Skin is intact, is healthy with good turgor, Skin is pink, warm \T\ dry. Musculoskeletal: Circulation, motion, and sensation intact. Capillary refill < 3 seconds. 20:16 Reassessment: Patient appears in no apparent distress at this time. Patient and/or ca1 family updated on plan of care and expected duration. Pain level reassessed. Patient is alert, oriented x 3, equal unlabored respirations, skin warm/dry/pink. 20:18 Reassessment: HAYLEY Field at bedside doing Ultrasound of the chest. ca1 21:05 Reassessment: Patient appears in no apparent distress at this time. Patient and/or ca1 family updated on plan of care and expected duration. Pain level reassessed. Patient is alert, oriented x 3, equal unlabored respirations, skin warm/dry/pink. 22:18 Reassessment: Patient appears in no apparent distress at this time. Patient and/or jb4 family updated on plan of care and expected duration. Pain level reassessed. Patient is alert, oriented x 3, equal unlabored respirations, skin warm/dry/pink. Provider is at the bedside. 22:55 Reassessment: Patient appears in no apparent distress at this time. Patient and/or jb4 family updated on plan of care and expected duration. Pain level reassessed. Patient is alert, oriented x 3, equal unlabored respirations, skin warm/dry/pink. Vital Signs: 19:20 BP 107 / 72; Pulse 86; Resp 18; Temp 98.7(TE); Pulse Ox 98% on R/A; Weight 127.01 kg jb4 (R); Height 6 ft. 1 in. (185.42 cm); Pain 8/10; 20:16 BP 120 / 59; Pulse 76; Resp 18 S; Pulse Ox 100% on R/A; ca1 21:20 BP 133 / 73; Pulse 73; Resp 18; Pulse Ox 100% on R/A; jb4 22:00 BP 138 / 76; Pulse 79; Resp 18; Pulse Ox 100% on R/A; jb4 19:20 Body Mass Index 36.94 (127.01 kg, 185.42 cm) jb4 ED Course: 19:17 Patient arrived in ED. am2 19:18 Misael Charlton MD is Private Physician. am2 19:23 Triage completed. jb4 19:26 Arm band placed on right wrist. jb4 19:28 Zulema Cosme, CARI is Primary Nurse. ca1 19:35 Emir Wolfe PA is PHCP. jr8 19:35 Yanick Umanzor MD is Attending Physician. jr8 19:37 Patient has correct armband on for positive identification. Placed in gown. Bed in low ca1 position. Call light in reach. Side rails up X2. tape duplicator on. Pulse ox on. NIBP on. Warm blanket given. 19:37 No provider procedures requiring assistance completed. Initial lab(s) drawn, by mo, ca1 sent to lab. Inserted saline lock: 20 gauge in right antecubital area, using aseptic technique. Blood collected. 20:20 XRAY Chest (1 view) In Process Unspecified. EDMS 21:09 CT Chest Abdomen Pelvis W/O Contrast In Process Unspecified. EDMS 21:20 Primary Nurse role handed off by Zulema Cosme RN jb4 21:20 Deven Stewart RN is Primary Nurse. jb4 22:24 Lucho Little MD is Referral Physician. jr8 22:55 IV discontinued, intact, bleeding controlled, No redness/swelling at site. Pressure jb4 dressing applied. Administered Medications: 22:35 Drug: Lasix 60 mg Route: IVP; Site: right forearm; jb4 22:56 Follow up: Response: No adverse reaction jb4 Outcome: 22:25 Discharge ordered by . jr8 22:55 Discharged to home via wheelchair, with family. jb4 22:55 Condition: stable 22:55 Discharge instructions given to patient, family, Instructed on discharge instructions, follow up and referral plans. Demonstrated understanding of instructions, follow-up care. 22:56 Patient left the ED. jb4 Signatures: Dispatcher [employer] EDMS Emir Wolfe PA PA jr8 Deven Stewart, CARI ALCALA jb4 Felisa Oneill am2 Chetan Howell RN RN [facility] [place] Acob, Zulema, RN RN ca1
--- NOTE | 2020-06-25 22:26 | EDPHYS ---
Physician Documentation [facility] Name: Larry Seth Jr Age: 65 yrs Sex: Male : 1955 Arrival Date: 06/25/2020 Time: 19:17 Bed 15 Private MD: Misael Charlton B ED Physician Yanick Umanzor HPI: 06/25 20:25 This 65 yrs old Male presents to ER via Wheelchair with complaints of left jr8 side pain, feels bubbles in him. 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 Subsequently before discharge got a pericardial effusion jr8 that resulted in pericardial window. For the past day or so started to have gurgling sensation with inspiration along with tracking of pain down left side. Severity of symptoms: At their worst the symptoms were moderate in the emergency department the symptoms are unchanged. The patient has not experienced similar symptoms in the past. The patient has been recently seen by a physician:. Historical: - Allergies: 19:26 Aleve; jb4 19:26 amlodipine; jb4 19:26 Ceftin; jb4 19:26 Codeine; jb4 19:26 HYDROCODONE; jb4 19:26 Tramadol HCl; jb4 19:33 Sulfa (Sulfonamide Antibiotics); mg2 19:33 Latex, Natural Rubber; mg2 - Home Meds: 19:26 aspirin 81 mg Oral TbEC 1 tab once daily [Active]; atorvastatin 80 mg Oral tab 1 tab jb4 once daily [Active]; clopidogrel 75 mg Oral tab 1 tab once daily [Active]; duloxetine 20 mg oral cpDR 1 cap [Active]; furosemide 80 mg oral tab 1 tab once daily [Active]; Novolin R Sub-Q 30 units 3 times per day daily [Active]; metoprolol succinate 50 mg oral Tb24 2 tabs once daily [Active]; 19:33 gabapentin 300 mg oral cap 1 cap 3 times per day [Active]; amiodarone 200 mg Oral tab 1 mg2 tab 2 times per day [Active]; DIALYVITE 800 0.8 mg oral tab [Active]; Tresiba FlexTouch U-100 100 unit/mL (3 mL) subcutaneous inpn 75 units daily [Active]; hydromorphone 2 mg Oral tab [Active]; Coricidin HBP oral oral [Active]; - PMHx: 19:26 Chronic pain; COPD; Diabetes - IDDM; GERD; Hypertension; restless leg syndrome; jb4 - PSHx: 19:26 BACK SURG; Cholecystectomy; Hernia repair; Heart Surgery; jb4 - Immunization history:: Adult Immunizations up to date. - Social history:: Smoking status: Patient reports the use of cigarette tobacco products, Patient/guardian denies using alcohol, street drugs. ROS: 20:25 Eyes: Negative for injury, pain, redness, and discharge, ENT: Negative for injury, jr8 pain, and discharge, Neck: Negative for injury, pain, and swelling, Cardiovascular: Negative for chest pain, palpitations, and edema, Back: Negative for injury and pain, MS/Extremity: Negative for injury and deformity, Skin: Negative for injury, rash, and discoloration. 20:25 Respiratory: Positive for shortness of breath. 20:25 Abdomen/GI: Positive for abdominal pain, of the anterior aspect of left lateral abdomen. Exam: 20:25 Eyes: Pupils equal round and reactive to light, extra-ocular motions intact. Lids and jr8 lashes normal. Conjunctiva and sclera are non-icteric and not injected. Cornea within normal limits. Periorbital areas with no swelling, redness, or edema. ENT: Nares patent. No nasal discharge, no septal abnormalities noted. Tympanic membranes are normal and external auditory canals are clear. Oropharynx with no redness, swelling, or masses, exudates, or evidence of obstruction, uvula midline. Mucous membranes moist. Neck: Trachea midline, no thyromegaly or masses palpated, and no cervical lymphadenopathy. Supple, full range of motion without nuchal rigidity, or vertebral point tenderness. No Meningismus. Back: No spinal tenderness. No costovertebral tenderness. Full range of motion. Skin: Warm, dry with normal turgor. Normal color with no rashes, no lesions, and no evidence of cellulitis. MS/ Extremity: Pulses equal, no cyanosis. Neurovascular intact. Full, normal range of motion. Neuro: Awake and alert, GCS 15, oriented to person, place, time, and situation. Cranial nerves II-XII grossly intact. Motor strength 5/5 in all extremities. Sensory grossly intact. Cerebellar exam normal. Normal gait. 20:25 Cardiovascular: Rate: normal, Rhythm: regular, Pulses: Pulses are 2+ in right radial artery and left radial artery. Heart sounds: S1, normal, S2, normal, Edema: is not appreciated, JVD: is not appreciated, crackling with inspiration noted most prominent over the cardiac apex . 20:25 Abdomen/GI: Inspection: bruising, obese Bowel sounds: active, all quadrants, Palpation: soft, in all quadrants, mild abdominal tenderness, in the anterior aspect of left lateral abdomen, Indicators: McBurney's point is not tender, Ovalle's sign is negative, Liver: no appreciated palpable abnormalities. 21:39 Respiratory: the patient does not display signs of respiratory distress, Respirations: jr8 normal, symetrical, no use of accessory muscles, no grunting, no evidence of nasal flaring, no prolonged exhalations, no pursed lip breathing, no retractions, no shallow respirations, no splinting, no tachypnea, Breath sounds: decreased breath sounds, that are mild, are located in both bases. Vital Signs: 19:20 BP 107 / 72; Pulse 86; Resp 18; Temp 98.7(TE); Pulse Ox 98% on R/A; Weight 127.01 kg jb4 (R); Height 6 ft. 1 in. (185.42 cm); Pain 8/10; 20:16 BP 120 / 59; Pulse 76; Resp 18 S; Pulse Ox 100% on R/A; ca1 21:20 BP 133 / 73; Pulse 73; Resp 18; Pulse Ox 100% on R/A; jb4 22:00 BP 138 / 76; Pulse 79; Resp 18; Pulse Ox 100% on R/A; jb4 19:20 Body Mass Index 36.94 (127.01 kg, 185.42 cm) jb4 MDM: 19:35 Patient medically screened. jr8 21:56 Data reviewed: vital signs, nurses notes, lab test result(s), EKG, radiologic studies, jr8 CT scan, plain films. Data interpreted: Pulse oximetry: on room air is 96 %. Interpretation: normal. Counseling: I had a detailed discussion with the patient and/or guardian regarding: the historical points, exam findings, and any diagnostic results supporting the discharge/admit diagnosis, lab results, radiology results, the need for outpatient follow up, a optician, to return to the emergency department if symptoms worsen or persist or if there are any questions or concerns that arise at home. 22:21 ED course: Patient off oxygen is 96-100%. No acute distress at this time. No signs of jr8 pericardial effusion on CT. No symptoms of tamponade. Discussed with patient that he does have bilateral pleural effusions which can be consistent with Cardiac surgery amongst having ESRD and CHF. Discussed with patient that the gurgling noise most likely is secondary from pericardial window. Needs echo and for cardiology to see her. Would admit here but patient is on dialysis and due to amoebae cannot admit here. Patient would rather go home and see Dr. Little tomorrow for his already scheduled appointment. At this time I believe this is fine. Knows to come back if worse . 06/25 19:59 Order name: Basic Metabolic Panel; Complete Time: 20:30 8 06/25 19:59 Order name: CBC with Diff; Complete Time: 20:30 8 06/25 19:59 Order name: LFT's; Complete Time: 20:30 8 06/25 19:59 Order name: Magnesium; Complete Time: 20:30 8 06/25 19:59 Order name: NT PRO-BNP; Complete Time: 20:30 06/25 19:59 Order name: PT-INR; Complete Time: 20:30 8 06/25 19:59 Order name: Troponin (emerg Dept Use Only); Complete Time: 20:30 8 06/25 19:59 Order name: XRAY Chest (1 view); Complete Time: 21:32 8 06/25 19:59 Order name: EKG; Complete Time: 20:00 8 06/25 19:59 Order name: Cardiac monitoring; Complete Time: 20:02 06/25 19:59 Order name: EKG - Nurse/Tech; Complete Time: 20:02 06/25 19:59 Order name: IV Saline Lock; Complete Time: 20:02 06/25 20:32 Order name: CT Chest Abdomen Pelvis W/O Contrast; Complete Time: 21:32 8 06/25 19:59 Order name: Labs collected and sent; Complete Time: 20:02 8 06/25 19:59 Order name: O2 Per Protocol; Complete Time: 20:02 06/25 19:59 Order name: O2 Sat Monitoring; Complete Time: 20:03 jr8 Administered Medications: 22:35 Drug: Lasix 60 mg Route: IVP; Site: right forearm; jb4 22:56 Follow up: Response: No adverse reaction jb4 Disposition: 06/26 01:17 Co-signature as Attending Physician, Yanick Umanzor MD. [place] Disposition: 06/25/20 22:25 Discharged to Home. Impression: Pleural effusion in other conditions classified elsewhere. - Condition is Stable. - Discharge Instructions: Pericardial Effusion, Pleural Effusion, Pericardiocentesis, Care After. - Medication Reconciliation Form, Thank You Letter, Antibiotic Education, Prescription Opioid Use form. - Follow up: Lucho Little MD; When: Tomorrow; Reason: Recheck today's complaints, Continuance of care, Re-evaluation by your physician. - Problem is new. - Symptoms have improved. Signatures: Dispatcher [employer] EDMS Yanick Umanzor MD MD pkl Roszak, Josh, PA PA jr8 Deven Stewart RN RN jb4 Chetan Howell RN RN mg2 Corrections: (The following items were deleted from the chart) 06/25 21:39 20:25 Eyes: Pupils equal round and reactive to light, extra-ocular motions intact. Lids jr8 and lashes normal. Conjunctiva and sclera are non-icteric and not injected. Cornea within normal limits. Periorbital areas with no swelling, redness, or edema. ENT: Nares patent. No nasal discharge, no septal abnormalities noted. Tympanic membranes are normal and external auditory canals are clear. Oropharynx with no redness, swelling, or masses, exudates, or evidence of obstruction, uvula midline. Mucous membranes moist. Neck: Trachea midline, no thyromegaly or masses palpated, and no cervical lymphadenopathy. Supple, full range of motion without nuchal rigidity, or vertebral point tenderness. No Meningismus. Respiratory: Lungs have equal breath sounds bilaterally, clear to auscultation and percussion. No rales, rhonchi or wheezes noted. No increased work of breathing, no retractions or nasal flaring. Back: No spinal tenderness. No costovertebral tenderness. Full range of motion. Skin: Warm, dry with normal turgor. Normal color with no rashes, no lesions, and no evidence of cellulitis. MS/ Extremity: Pulses equal, no cyanosis. Neurovascular intact. Full, normal range of motion. Neuro: Awake and alert, GCS 15, oriented to person, place, time, and situation. Cranial nerves II-XII grossly intact. Motor strength 5/5 in all extremities. Sensory grossly intact. Cerebellar exam normal. Normal gait. jr8 21:39 20:25 Cardiovascular: Rate: normal, Rhythm: regular, Pulses: Pulses are 2+ in right jr8 radial artery and left radial artery. Heart sounds: S1, normal, S2, normal, Edema: is not appreciated, JVD: is not appreciated, crackling with inspiration noted most prominent over the cardiac apex , jr8 22:24 21:56 Counseling: I had a detailed discussion with the patient and/or guardian jr8 regarding: the historical points, exam findings, and any diagnostic results supporting the discharge/admit diagnosis, lab results, radiology results, the need for further work-up and treatment in the hospital, jr8 22:56 22:25 06/25/2020 22:25 Discharged to Home. Impression: Pleural effusion in other jb4 conditions classified elsewhere. Condition is Stable. Forms are Medication Reconciliation Form, Thank You Letter, Antibiotic Education, Prescription Opioid Use. Follow up: Lucho Little; When: Tomorrow; Reason: Recheck today's complaints, Continuance of care, Re-evaluation by your physician. Problem is new. Symptoms have improved. jr8
[2020-06-25] MEDS ORDERED: FUROSEMIDE 100 MG/10 ML VIAL IV ONE (22:44)
[2020-06-25 23:13] VITALS: TEMP 98.7
[2020-06-25 23:14] VITALS: O2SAT 100
[2020-06-25 23:16] VITALS: BP 138/76
--- NOTE | 2020-06-26 10:44 | EKG ---
Test Date: 2020-06-25 Test Time: 19:38:42 Yarn Weigher: LINNETTE MEASUREMENT RESULTS: Intervals: Rate: 79 NC: 174 QRSD: 92 QT: 392 QTc: 449 Webster: P: 60 NC: 174 QRS: 83 T: 77 INTERPRETIVE STATEMENTS: Normal sinus rhythm Nonspecific ST and T wave abnormality Abnormal ECG Compared to ECG 05/17/2020 16:43:37 ST (T wave) deviation now present Electronically Signed On 06-26-20 10:44:18 CDT by Lucho Little
== END 2020-06-25 22:56 | disposition home or self-care (01) ==
LOC: ER 19:12
DX: J90 Pleural effusion, not elsewhere classified (principal); I10 Essential (primary) hypertension; E11.9 Type 2 diabetes mellitus without complications; Z72.0 Tobacco use; Z79.4 Long term (current) use of insulin; Z79.82 Long term (current) use of aspirin; Z88.2 Allergy status to sulfonamides; Z88.5 Allergy status to narcotic agent; Z88.6 Allergy status to analgesic agent; Z88.8 Allergy status to other drugs, medicaments and biological substances; Z91.040 Latex allergy status; Z91.048 Other nonmedicinal substance allergy status
CPT/HCPCS: 36415; 71045; 71250; 74176; 80048; 80076; 83735; 83880; 84484; 85025; 85610; 93005; 96374; 99284

== ENCOUNTER 2021-08-20 09:09 | Day surgery (SDC) | payer OTHER ==
[2021-08-20] MEDS ORDERED: DIAZEPAM 5 MG TABLET ONE (09:45)
[2021-08-20 09:48] LABS: Protime INR 1.03
[2021-08-20 10:10] VITALS: BMI 36.9
--- NOTE | 2021-08-20 11:47 | RAD REPORT ---
EXAM DESCRIPTION: [facility] Single View08/20/2021 10:52 am CLINICAL HISTORY: Thoracentesis IMPRESSION: A right pneumothorax is not seen status post thoracentesis.
[2021-08-20 12:24] LABS: Body Fluid WBC 869 /mm^3
--- NOTE | 2021-08-20 13:28 | RAD REPORT ---
EXAM DESCRIPTION: US - Thoracentesis w/ US Guide - 08/20/2021 10:22 am CLINICAL HISTORY: Right pleural effusion TECHNIQUE: The risks, benefits alternatives to the procedure were explained to the patient and infor med consent obtained. Skiin ,subcutaneous tissues and pleura anesthetized with lidocaine. Under sonographic guidance, an 8 Tunisian catheter was placed into the posterior lower right pleural sp rahul. 900 cc of reddish-brown fluid removed and given to pathology Patient experienced no immediate complication IMPRESSION: Thoracentesis
[2021-08-20 14:15] LABS: Appearance TURBID (CLEAR); Body Fluid Source PLEURAL; Color of fluid Red (COLORLESS)
[2021-08-20 14:21] VITALS: BP 152/89; TEMP 97.8; O2SAT 99
--- NOTE | 2021-08-20 14:21 | RAD REPORT ---
EXAM DESCRIPTION: RAD - Chest Single View - 08/20/2021 2:03 pm CLINICAL HISTORY: post right thoracentesis COMPARISON: August 20 TECHNIQUE: AP portable chest image was obtained 08/20/2021 2:03 pm . FINDINGS: The 3 hour post thoracentesis chest film shows no pneumothorax. No other significant findi ng or significant change since prior imaging. IMPRESSION: No pneumothorax seen on 3 hour post thoracentesis chest film.
[2021-08-25 20:33] LABS: TOTAL PROTEIN, PLEURAL FLUID 3.1 g/dL
[2021-08-28 09:35] LABS: LD, PLEURAL FLUID ND
== END 2021-08-20 14:35 | disposition home or self-care (01) ==
LOC: DS 09:09
PROVIDERS: ATTEND Internal Medicine
DX: J90 Pleural effusion, not elsewhere classified (principal)
CPT/HCPCS: 32554; 32555; 36415; 71045; 82945; 83615; 83986; 84157; 85049; 85610; 85730; 87015; 87070; 87102; 87116; 87206; 88108; 88305; 89050

== ENCOUNTER 2021-11-15 16:11 | Inpatient (IN) | payer OTHER ==
--- OUTSIDE RECORDS SUMMARY | 2021-11-15 16:20 | XMS REPORT | Continuity of Care Document ---
:[address] [facility] [place], [place] t Address [address] [place] [address] Care Team Providers Name Role Phone PCP, DOES NOT HAVE A Primary Care Physician Unavailable DES CONCEPCION Attending Clinician Unavailable ELVIA SHELDON Attending Clinician Unavailable Alon JARAMILLO, A Attending Clinician Clarence MCLEAN Attending Clinician Unavailable Jass JARAMILLO, Javon Attending Clinician ELVIRA BECKMAN Attending Clinician Unavailable Doctor Unassigned, Name Attending Clinician Unavailable DES CONCEPCION Admitting Clinician Unavailable ELVIA SHELDON Admitting Clinician Unavailable Payers Payer Name Policy Type Policy Number Effective Date Expiration Date Sukh prado [employer] MEDICARE [id number] 2018 2018 OPEN PLAN PFFS 00:00:00 00:00:00 Problems Condition Condition Condition Status Onset Resolution Last Treating Co mments Source Name Details Category Date Date Treatment Clinician Date Hypertensi Hypertensi Disease Active 2020-09 U nivers on on 11-03 ity of 00:00: [place] 00 Medical Branch Hyperlipid Hyperlipid Disease Active 2020-09 U nivers emia emia 11-03 ity of 00:00: [place] 00 Medical Branch DISH DISH Disease Active 2020-09 Univers (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 00 Me dical skeletal skeletal Branch hyperostos hyperostos is) is) ESRD (end ESRD (end Disease Active Uni vers stage stage 5-20 ity of renal renal 00:00: [place] disease) disease) 00 Medica l on on Branch dialysis dialysis Knee pain, Knee pain, Disease Active U nivers left left 5-20 ity of 00:00: [place] 00 Medical Branch Acquired Acquired Disease Active 2020- 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 ity of kidney kidney 00:00: [place] disease disease 00 Medical Branch Chronic Chronic Disease Active 2020-0 Univers diastolic diastolic 06-18 ity of heart heart 00:00: [place] failure failure 00 Medical Branch End-stage End-stage Disease Active 2020-0 Uni vers renal renal 06-18 [place] disease [place] hemodialys hemodialys 00 Me dical is is Branch Hypothyroi Hypothyroi Disease Active 2020-0 U nivers dism due dism due 06-18 ity of to defect to defect 00:00: [place] s in thyroid in thyroid 00 Me dical hormone hormone Branch synthesis synthesis Morbid Morbid Disease Active 2020-0 Univers obesity obesity 06-18 ity of 00:00: [place] 00 Medical Branch Obstructiv Obstructiv Disease Active 2020-0 U nivers e sleep e sleep 06-18 ity of apnea apnea 00:00: [place] syndrome syndrome 00 Medica l Branch Personal Personal Disease Active 2020-0 Unive rs history of history of 06-18 it y of nicotine nicotine 00:00: [place] dependence dependence 00 Me dical Branch Renal Renal Disease Active 2020-0 Univers osteodystr osteodystr 06-18 it y of ophy ophy 00:00: [place] 00 Medical Branch Secondary Secondary Disease Active 2020-0 Uni vers hyperparat hyperparat 06-18 it y of hyroidism hyroidism 00:[place] Chronic Chronic Disease Active 2020-0 Univers kidney kidney 06-18 ity of disease disease 00:00: [place] 00 Medical Branch Diabetes Diabetes Disease Active 2020-0 Unive rs mellitus mellitus 9 ity of 00:00: [place] 00 Medical Branch 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 06-03 it y of l window l window 00:00: [place] creation creation 00 Medica l Branch Paroxysmal Paroxysmal Disease Active 2020-0 U nivers atrial atrial 06-01 ity of fibrillati fibrillati 00:[place] [facility] [place] Arterioscl Arterioscl Disease Active 2020-0 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 ity of coronary coronary 00:00: [place] artery artery 00 Medical Branch Heart Heart Disease Active 2019- Univers attack attack 1- ity of 00:00: [place] 00 Medical Branch Pain in Pain in Disease Active 2015- Univers right knee right knee 3-30 it y of 00:00: [place] 00 Medical Branch Allergies, Adverse Reactions, Alerts Allergy Allergy Status Severity Reaction(s) Onset Inactive Treating Comm ents Source Name Type Date Date Clinician BEEF Allergy Active 2020-[address] [facility] PRODUCTS 00 Center CEFUROXI Allergy Active 2020-[address] [facility] ME 8-21 [facility] AXETIL 00:[facility] 00 Center CODEINE Allergy Active 2020-[address] [facility] LATEX Allergy Active 2020-[address] [facility] HYDROCOD Allergy Active 2020-[address] [facility] ONE-ACET 8-21 [facility] - AMINOPHE 00:00: Medical N 00 Center TRAMADOL Allergy Active 2020-[address] [facility] Medical [facility] Center SULFA Allergy Active Hives 2019-[address] [facility] (SULFONA 7-29 [facility] MIDE 00:00: Medical ANTIBIOT 00 Center ICS) Latex Propensi Active Rash 2019-0 Univers ty to 7-29 ity of adverse 00:00: [place] reaction 00 Medical s Branch Sulfa Propensi Active Hives 2019-0 Univers (Sulfona ty to 7-29 ity of mide adverse 00:00: [place] Antibiot reaction 00 Medica l ics) s Branch SULFA Drug Active Hives 2019 Univers (SULFONA Class 7-29 ity of MIDE 00:00: [place] ANTIBIOT 00 Medical ICS) Branch LATEX DRUG Active Low Rash 2019-0 Univers INGREDI 7-29 ity of 00:00: [place] 00 Medical Branch Naproxen Propensi Active Palpitations 2016-0 Univers Sodium ty to 3-30 ity of adverse 00:00: [place] reaction 00 Medical s Branch Cefuroxi Propensi Active Hives 2016-0 Univer s me ty to 3-30 ity of Axetil adverse 00:00: [place] reaction 00 Medical s Branch Codeine Propensi Active Unknown - 2016-0 Severe Univ ers ty to See comments 3-30 Headache it y of adverse 00:00: [place] reaction 00 Medical s Branch Hydrocod Propensi Active Hives 2016-0 headaches Uni vers one ty to 3-30 ity of adverse 00:00: [place] reaction 00 Medical s Branch Tramadol Propensi Active Swelling 2016-0 Univ ers ty to 3-30 ity of adverse 00:00: [place] reaction 00 Medical s Branch CEFUROXI DRUG Active Hives 2016-0 Univers ME INGREDI 3-30 ity of AXETIL 00:00: [place] 00 Medical Branch CODEINE DRUG Active Unknown-Cmnt 2016-0 Uni vers INGREDI 3-30 ity of 00:00: [place] 00 Medical Branch HYDROCOD DRUG Active Other-Cmnt 2016-0 Univ ers ONE INGREDI 3-30 ity of 00:00: [place] 00 Medical Branch TRAMADOL DRUG Active Swelling 2016-0 Univer s INGREDI 3-30 ity of 00:00: [place] 00 Medical Branch NAPROXEN DRUG Active Low Palpitations 2016-0 Un leanna SODIUM INGREDI 3-30 ity of 00:00: [place] [address] [facility] Social History Social Habit Start Date Stop Date Quantity Comments Source History of Snuff User University of tobacco use [facility] Exposure to Unable to assess Univers ity of SARS-CoV-2 [facility] (event) [place] Alcohol intake 2021-09-03 2021-09-03 0 /d University of 00:00:00 00:00:00 [facility] [birth year] Universit y of 00:00:00 00:00:00 [facility] Smoking Status Start Date Stop Date Source Never smoker [facility] Medications Ordered Filled Start Stop Current Ordering Indication Dosage Frequency Signature Comments Components Source Medication Medication Date Date Medication? Clinician (SIG) Name Name Chlorphenir 2020-09 Yes 1{tbl} Take 1 Un leanna amine-Aceta 2-07 tablet by ity of minophen 11:40: mouth at [place] ([place] [address] bedtime. Medic al HBP COLD Branch AND FLU) 2-325 mg Tab atorvastati 2020-09 Yes 80mg Take 80 mg Univers n 80 mg 2-07 by mouth ity of tablet 11:40: at [place] [address] bedtime. Medical Branch magnesium 2020-09 Yes Take by Univ ers oxide 400 2-07 mouth. ity of mg 11:40: [place] [address] Medical capsule Branch buPROPion 2020-09 Yes 150mg Take 150 Uni vers SR 2-07 mg by ity of (WELLBUTRIN 11:40: mouth 2 [place] as SR) 150 mg 12 (two) Medical SR tablet times Branch daily. montelukast 2020-09 Yes 10mg Take 10 mg Univers (SINGULAIR) 2-07 by mouth. ity of 10 mg 11:40: [place] [address] Medical Branch clopidogreL 2020-09 Yes 75mg Take 75 mg Univers 75 mg 2-07 by mouth ity of tablet 11:40: daily. [place] [address] Medical Branch Chlorphenir 2020-09 Yes 1{tbl} Take 1 Un leanna amine-Aceta 2-07 tablet by ity of minophen 11:40: mouth at [place] ([place] [address] bedtime. Medic al HBP COLD Branch AND FLU) 2-325 mg Tab atorvastati 2020-09 Yes 80mg Take 80 mg Univers n 80 mg 2-07 by mouth ity of tablet 11:40: at [place] [address] bedtime. Medical Branch magnesium 2020-09 Yes Take by Univ ers oxide 400 2-07 mouth. ity of mg 11:40: [place] [address] Medical capsule Branch buPROPion 2020-09 Yes 150mg Take 150 Uni vers SR 2-07 mg by ity of (WELLBUTRIN 11:40: mouth 2 [place] as SR) 150 mg 12 (two) Medical SR tablet times Branch daily. montelukast 2020-09 Yes 10mg Take 10 mg Univers (SINGULAIR) 2-07 by mouth. ity of 10 mg 11:40: [place] [address] Medical Branch clopidogreL 2020-09 Yes 75mg Take 75 mg Univers 75 mg 2-07 by mouth ity of tablet 11:40: daily. [place] [address] Medical Branch Chlorphenir 2020-09 Yes 1{tbl} Take 1 Un leanna amine-Aceta 2-07 tablet by ity of minophen 11:40: mouth at [place] ([place] [address] bedtime. Medic al HBP COLD Branch AND FLU) 2-325 mg Tab atorvastati 2020-09 Yes 80mg Take 80 mg Univers n 80 mg 2-07 by mouth ity of tablet 11:40: at [place] [address] bedtime. Medical Branch magnesium 2020-09 Yes Take by Univ ers oxide 400 2-07 mouth. ity of mg 11:40: [place] [address] Medical capsule Branch buPROPion 2020-09 Yes 150mg Take 150 Uni vers SR 2-07 mg by ity of (WELLBUTRIN 11:40: mouth 2 [place] as SR) 150 mg 12 (two) Medical SR tablet times Branch daily. montelukast 2020-09 Yes 10mg Take 10 mg Univers (SINGULAIR) 2-07 by mouth. ity of 10 mg 11:40: [place] [address] Medical Branch clopidogreL 2020-09 Yes 75mg Take 75 mg Univers 75 mg 2-07 by mouth ity of tablet 11:40: daily. [place] [address] Medical Branch Chlorphenir 2020-09 Yes 1{tbl} Take 1 Un leanna amine-Aceta 2-07 tablet by ity of minophen 11:40: mouth at [place] ([place] [address] bedtime. Medic al HBP COLD Branch AND FLU) 2-325 mg Tab atorvastati 2020-09 Yes 80mg Take 80 mg Univers n 80 mg 2-07 by mouth ity of tablet 11:40: at [place] [address] bedtime. Medical Branch magnesium 2020-09 Yes Take by Univ ers oxide 400 2-07 mouth. ity of mg 11:40: [place] [address] Medical capsule Branch buPROPion 2020-09 Yes 150mg Take 150 Uni vers SR 2-07 mg by ity of (WELLBUTRIN 11:40: mouth 2 [place] as SR) 150 mg 12 (two) Medical SR tablet times Branch daily. montelukast 2020-09 Yes 10mg Take 10 mg Univers (SINGULAIR) 2-07 by mouth. ity of 10 mg 11:40: [place] [address] Medical Branch clopidogreL 2020-09 Yes 75mg Take 75 mg Univers 75 mg 2-07 by mouth ity of tablet 11:40: daily. [place] [address] Medical Branch Chlorphenir 2020-09 Yes 1{tbl} Take 1 Un leanna amine-Aceta 2-07 tablet by ity of minophen 11:40: mouth at [place] ([place] [address] bedtime. Medic al HBP COLD Branch AND FLU) 2-325 mg Tab atorvastati 2020-09 Yes 80mg Take 80 mg Univers n 80 mg 2-07 by mouth ity of tablet 11:40: at [place] [address] bedtime. Medical Branch magnesium 2020-09 Yes Take by Univ ers oxide 400 2-07 mouth. ity of mg 11:40: [place] [address] Medical capsule Branch buPROPion 2020-09 Yes 150mg Take 150 Uni vers SR 2-07 mg by ity of (WELLBUTRIN 11:40: mouth 2 [place] as SR) 150 mg 12 (two) Medical SR tablet times Branch daily. montelukast 2020-09 Yes 10mg Take 10 mg Univers (SINGULAIR) 2-07 by mouth. ity of 10 mg 11:40: [place] [address] Medical Branch clopidogreL 2020-09 Yes 75mg Take 75 mg Univers 75 mg 2-07 by mouth ity of tablet 11:40: daily. [address] Branch Chlorphenir 2020-09 Yes 1{tbl} Take 1 Un leanna amine-Aceta 2-07 tablet by ity of minophen 11:40: mouth at [place] ([place] [address] bedtime. Medic al HBP COLD Branch AND FLU) 2-325 mg Tab atorvastati 2020-09 Yes 80mg Take 80 mg Univers n 80 mg 2-07 by mouth ity of tablet 11:40: at [place] [address] bedtime. Medical Branch magnesium 2020-09 Yes Take by Univ ers oxide 400 2-07 mouth. ity of mg 11:40: [place] [address] Medical capsule Branch buPROPion 2020-09 Yes 150mg Take 150 Uni vers SR 2-07 mg by ity of (WELLBUTRIN 11:40: mouth 2 [place] as SR) 150 mg 12 (two) Medical SR tablet times Branch daily. montelukast 2020-09 Yes 10mg Take 10 mg Univers (SINGULAIR) 2-07 by mouth. ity of 10 mg 11:40: [place] [address] Medical Branch clopidogreL 2020-09 Yes 75mg Take 75 mg Univers 75 mg 2-07 by mouth ity of tablet 11:40: daily. [place] [address] Medical Branch Chlorphenir 2020-09 Yes 1{tbl} Take 1 Un leanna amine-Aceta 2-07 tablet by ity of minophen 11:40: mouth at [place] ([facility] 12 bedtime. Medic al HBP COLD Branch AND FLU) 2-325 mg Tab clopidogreL 2020-09 Yes 75mg Take 75 mg Univers 75 mg 2-07 by mouth ity of tablet 11:40: daily. [place] [address] Medical Branch Chlorphenir 2020-09 Yes 1{tbl} Take 1 Un leanna amine-Aceta 2-07 tablet by ity of minophen 11:40: mouth at [place] ([place] [address] bedtime. Medic al HBP COLD Branch AND FLU) 2-325 mg Tab atorvastati 2020-09 Yes 80mg Take 80 mg Univers n 80 mg 2-07 by mouth ity of tablet 11:40: at [place] [address] bedtime. Medical Branch magnesium 2020-09 Yes Take by Univ ers oxide 400 2-07 mouth. ity of mg 11:40: [place] [address] Medical capsule Branch buPROPion 2020-09 Yes 150mg Take 150 Uni vers SR 2-07 mg by ity of (WELLBUTRIN 11:40: mouth 2 [place] as SR) 150 mg 12 (two) Medical SR tablet times Branch daily. montelukast 2020-09 Yes 10mg Take 10 mg Univers (SINGULAIR) 2-07 by mouth. ity of 10 mg 11:40: [place] [address] Medical Branch clopidogreL 2020-09 Yes 75mg Take 75 mg Univers 75 mg 2-07 by mouth ity of tablet 11:40: daily. [place] [address] Medical Branch Chlorphenir 2020-09 Yes 1{tbl} Take 1 Un leanna amine-Aceta 2-07 tablet by ity of minophen 11:40: mouth at [place] ([facility] 12 bedtime. Medic al HBP COLD Branch AND FLU) 2-325 mg Tab atorvastati 2020-09 Yes 80mg Take 80 mg Univers n 80 mg 2-07 by mouth ity of tablet 11:40: at [place] [address] bedtime. Medical Branch magnesium 2020-09 Yes Take by Univ ers oxide 400 2-07 mouth. ity of mg 11:40: [place] [address] Medical capsule Branch buPROPion 2020-09 Yes 150mg Take 150 Uni vers SR 2-07 mg by ity of (WELLBUTRIN 11:40: mouth 2 [place] as SR) 150 mg 12 (two) Medical SR tablet times Branch daily. montelukast 2020-09 Yes 10mg Take 10 mg Univers (SINGULAIR) 2-07 by mouth. ity of 10 mg 11:40: [place] tablet 12 Medical Branch clopidogreL 2020-09 Yes 75mg Take 75 mg Univers 75 mg 2-07 by mouth ity of tablet 11:40: daily. [place] 12 Medical Branch gabapentin Yes 300mg Take 300 Un leanna 300 mg 3-30 mg by ity of capsule 13:13: mouth 3 21 (three) Medical times Branch daily. Insulin Yes 35U inject 35 Unive rs Regular 3-30 Units ity of Human 13:13: under the [place] (NOVOLIN R 21 skin 3 Medical FLEXPEN) (three) Branch 100 unit/mL times (3 mL) InPn daily before meals. insulin Yes 80U inject 80 Unive rs degludec 3-30 Units ity of (TRESIBA 13:13: under the [facility] FLEXTOUCH 21 skin daily Medi katja U-100) 100 before a Branc h unit/mL (3 meal. mL) InPn furosemide Yes 80mg Take 80 mg U nivers 80 mg 3-30 by mouth. ity of tablet 13:13: Takes on non Medical dialysis Branch days, S,M,W and F folic Yes 1{tbl} Take 1 Univers acid/vit B 3-30 tablet by ity of complex and 13:13: mouth [place] C 21 daily. Medical (DIALYVITE Branch 800 ORAL) ALBUTEROL Yes 2{puff} Inhale 2 U nivers INHALE 3-30 Puffs 4 ity of 13:13: (four) [place] 21 times Medical daily as Branch needed. aspirin 81 Yes 81mg Take 81 mg U nivers mg chewable 3-30 by mouth ity of tablet 13:13: daily. [place] [address] Medical Branch Insulin Yes 14U 14 Units. Unive rs NPH-Regular 3-30 ity of Human Rec 13:13: [place] (NOVOLIN 21 Medical 70-30 Branch FLEXPEN U-100) 100 unit/mL (70-30) injection gabapentin 2020-0 Yes 300mg Take 300 Un leanna 300 mg 3-30 mg by ity of capsule 13:13: mouth 3 21 (three) Medical times Branch daily. Insulin 2020-0 Yes 35U inject 35 Unive rs Regular 3-30 Units ity of Human 13:13: under the [place] ([place]OVOLIN R 21 skin 3 Medical FLEXPEN) (three) Branch 100 unit/mL times (3 mL) InPn daily before meals. insulin 2020-0 Yes 80U inject 80 Unive rs degludec 3-30 Units ity of (TRESIBA 13:13: under the [facility] s FLEXTOUCH 21 skin daily Medi katja U-100) 100 before a Branc h unit/mL (3 meal. mL) InPn furosemide 0 Yes 80mg Take 80 mg U nivers 80 mg 3-30 by mouth. ity of tablet 13:13: Takes on [place] non Medical dialysis Branch days, S,M,W and F folic 0 Yes 1{tbl} Take 1 Univers acid/vit B 3-30 tablet by ity of complex and 13:13: mouth [place] C 21 daily. Medical (DIALYVITE Branch 800 ORAL) ALBUTEROL 0 Yes 2{puff} Inhale 2 U nivers INHALE 3-30 Puffs 4 ity of 13:13: (four) [place] 21 times Medical daily as Branch needed. aspirin 81 2020-0 Yes 81mg Take 81 mg U nivers mg chewable 3-30 by mouth ity of tablet 13:13: daily. [place] 21 Medical Branch Insulin 2020-0 Yes 14U 14 Units. Unive rs NPH-Regular 3-30 ity of Human Rec 13:13: [place] (NOVOLIN 21 Medical 70-30 Branch FLEXPEN U-100) 100 unit/mL (70-30) injection gabapentin 2020-0 Yes 300mg Take 300 Un leanna 300 mg 3-30 mg by ity of capsule 13:13: mouth 3 [place] 21 (three) Medical times Branch daily. Insulin 2020-0 Yes 35U inject 35 Unive rs Regular 3-30 Units ity of Human 13:13: under the [place] (NOVOLIN R 21 skin 3 Medical FLEXPEN) (three) Branch 100 unit/mL times (3 mL) InPn daily before meals. insulin Yes 80U inject 80 Unive rs degludec 3-30 Units ity of (TRESIBA 13:13: under the [facility] FLEXTOUCH 21 skin daily Medi katja U-100) 100 before a Branc h unit/mL (3 meal. mL) InPn furosemide Yes 80mg Take 80 mg U nivers 80 mg 3-30 by mouth. ity of tablet 13:13: Takes on [place] [address] non Medical dialysis Branch days, S,M,W and F folic Yes 1{tbl} Take 1 Univers acid/vit B 3-30 tablet by ity of complex and 13:13: mouth [place] C 21 daily. Medical (DIALYVITE Branch 800 ORAL) ALBUTEROL Yes 2{puff} Inhale 2 U nivers INHALE 3-30 Puffs 4 ity of 13:13: (four) [place] [address] times Medical daily as Branch needed. aspirin 81 Yes 81mg Take 81 mg U nivers mg chewable 3-30 by mouth ity of tablet 13:13: daily. [place] 21 Medical Branch Insulin Yes 14U 14 Units. Unive rs NPH-Regular 3-30 ity of Human Rec 13:13: [place] (NOVOLIN 21 Medical 70-30 Branch FLEXPEN U-100) 100 unit/mL (70-30) injection gabapentin Yes 300mg Take 300 Un leanna 300 mg 3-30 mg by ity of capsule 13:13: mouth 3 [place] 21 (three) Medical times Branch daily. Insulin Yes 35U inject 35 Unive rs Regular 3-30 Units ity of Human 13:13: under the [place] ([place]OV[place] R 21 skin 3 Medical FLEXPEN) (three) Branch 100 unit/mL times (3 mL) InPn daily before meals. insulin Yes 80U inject 80 Unive rs degludec 3-30 Units ity of (TRESIBA 13:13: under the [facility] s FLEXTOUCH 21 skin daily Medi katja U-100) 100 before a Branc h unit/mL (3 meal. mL) InPn furosemide Yes 80mg Take 80 mg U nivers 80 mg 3-30 by mouth. ity of tablet 13:13: Takes on non Medical dialysis Branch days, S,M,W and F folic Yes 1{tbl} Take 1 Univers acid/vit B 3-30 tablet by ity of complex and 13:13: mouth [place] C 21 daily. Medical (DIALYVITE Branch 800 ORAL) ALBUTEROL Yes 2{puff} Inhale 2 U nivers INHALE 3-30 Puffs 4 ity of 13:13: (four) [place] 21 times Medical daily as Branch needed. aspirin 81 Yes 81mg Take 81 mg U nivers mg chewable 3-30 by mouth ity of tablet 13:13: daily. [place] [address] Medical Branch Insulin Yes 14U 14 Units. Unive rs NPH-Regular 3-30 ity of Human Rec 13:13: [place] (NOV[place]IN 21 Medical 70-30 Branch FLEXPEN U-100) 100 unit/mL (70-30) injection gabapentin Yes 300mg Take 300 Un leanna 300 mg 3-30 mg by ity of capsule 13:13: mouth 3 21 (three) Medical times Branch daily. Insulin Yes 35U inject 35 Unive rs Regular 3-30 Units ity of Human 13:13: under the [place] ([place] R 21 skin 3 Medical FLEXPEN) (three) Branch 100 unit/mL times (3 mL) InPn daily before meals. insulin Yes 80U inject 80 Unive rs degludec 3-30 Units ity of (TRESIBA 13:13: under the [facility] FLEXTOUCH 21 skin daily Medi katja U-100) 100 before a Branc h unit/mL (3 meal. mL) InPn furosemide Yes 80mg Take 80 mg U nivers 80 mg 3-30 by mouth. ity of tablet 13:13: Takes on non Medical dialysis Branch days, S,M,W and F folic Yes 1{tbl} Take 1 Univers acid/vit B 3-30 tablet by ity of complex and 13:13: mouth [place] C 21 daily. Medical (DIALYVITE Branch 800 ORAL) ALBUTEROL Yes 2{puff} Inhale 2 U nivers INHALE 3-30 Puffs 4 ity of 13:13: (four) [place] 21 times Medical daily as Branch needed. aspirin 81 0 Yes 81mg Take 81 mg U nivers mg chewable 3-30 by mouth ity of tablet 13:13: daily. [place] Medical Branch Insulin 0 Yes 14U 14 Units. Unive rs NPH-Regular 3-30 ity of Human Rec 13:13: [place] ([place]OV[place]IN 21 Medical 70-30 Branch FLEXPEN U-100) 100 unit/mL (70-30) injection gabapentin 0 Yes 300mg Take 300 Un leanna 300 mg 3-30 mg by ity of capsule 13:13: mouth 3 21 (three) Medical times Branch daily. Insulin Yes 35U inject 35 Unive rs Regular 3-30 Units ity of Human 13:13: under the [place] ([place] R 21 skin 3 Medical FLEXPEN) (three) Branch 100 unit/mL times (3 mL) InPn daily before meals. insulin Yes 80U inject 80 Unive rs degludec 3-30 Units ity of (TRESIBA 13:13: under the [facility] s FLEXTOUCH 21 skin daily Medi katja U-100) 100 before a Branc h unit/mL (3 meal. mL) InPn furosemide Yes 80mg Take 80 mg U nivers 80 mg 3-30 by mouth. ity of tablet 13:13: Takes on non Medical dialysis Branch days, S,M,W and F folic Yes 1{tbl} Take 1 Univers acid/vit B 3-30 tablet by ity of complex and 13:13: mouth [place] C 21 daily. Medical (DIALYVITE Branch 800 ORAL) ALBUTEROL Yes 2{puff} Inhale 2 U nivers INHALE 3-30 Puffs 4 ity of 13:13: (four) [place] 21 times Medical daily as Branch needed. aspirin 81 Yes 81mg Take 81 mg U nivers mg chewable 3-30 by mouth ity of tablet 13:13: daily. [place] Medical Branch Insulin 2020-0 Yes 14U 14 Units. Unive rs NPH-Regular 3-30 ity of Human Rec 13:13: [place] ([place]OV[place]IN 21 Medical 70-30 Branch FLEXPEN U-100) 100 unit/mL (70-30) injection gabapentin 2020-0 Yes 300mg Take 300 Un leanna 300 mg 3-30 mg by ity of capsule 13:13: mouth 3 21 (three) Medical times Branch daily. Insulin 2020-0 Yes 35U inject 35 Unive rs Regular 3-30 Units ity of Human 13:13: under the [place] ([place]OV[place]IN R 21 skin 3 Medical FLEXPEN) (three) Branch 100 unit/mL times (3 mL) InPn daily before meals. insulin 0 Yes 80U inject 80 Unive rs degludec 3-30 Units ity of (TRESIBA 13:13: under the [facility] s FLEXTOUCH 21 skin daily Medi katja U-100) 100 before a Branc h unit/mL (3 meal. mL) InPn furosemide 0 Yes 80mg Take 80 mg U nivers 80 mg 3-30 by mouth. ity of tablet 13:13: Takes on non Medical dialysis Branch days, S,M,W and F folic Yes 1{tbl} Take 1 Univers acid/vit B 3-30 tablet by ity of complex and 13:13: mouth [place] C 21 daily. Medical (DIALYVITE Branch 800 ORAL) ALBUTEROL 0 Yes 2{puff} Inhale 2 U nivers INHALE 3-30 Puffs 4 ity of 13:13: (four) [place] 21 times Medical daily as Branch needed. aspirin 81 0 Yes 81mg Take 81 mg U nivers mg chewable 3-30 by mouth ity of tablet 13:13: daily. [place] 21 Medical Branch Insulin 2020-0 Yes 14U 14 Units. Unive rs NPH-Regular 3-30 ity of Human Rec 13:13: [place] ([place] 21 Medical 70-30 Branch FLEXPEN U-100) 100 unit/mL (70-30) injection gabapentin 2020-0 Yes 300mg Take 300 Un leanna 300 mg 3-30 mg by ity of capsule 13:13: mouth 3 21 (three) Medical times Branch daily. Insulin 2020-0 Yes 35U inject 35 Unive rs Regular 3-30 Units ity of Human 13:13: under the [place] ([place] R 21 skin 3 Medical FLEXPEN) (three) Branch 100 unit/mL times (3 mL) InPn daily before meals. insulin Yes 80U inject 80 Unive rs degludec 3-30 Units ity of (TRESIBA 13:13: under the [facility] FLEXTOUCH 21 skin daily Medi katja U-100) 100 before a Branc h unit/mL (3 meal. mL) InPn furosemide Yes 80mg Take 80 mg U nivers 80 mg 3-30 by mouth. ity of tablet 13:13: Takes on [place] [address] non Medical dialysis Branch days, S,M,W and F folic Yes 1{tbl} Take 1 Univers acid/vit B 3-30 tablet by ity of complex and 13:13: mouth [place] C 21 daily. Medical (DIALYVITE Branch 800 ORAL) ALBUTEROL Yes 2{puff} Inhale 2 U nivers INHALE 3-30 Puffs 4 ity of 13:13: (four) [place] 21 times Medical daily as Branch needed. aspirin 81 Yes 81mg Take 81 mg U nivers mg chewable 3-30 by mouth ity of tablet 13:13: daily. [place] 21 Medical Branch Insulin Yes 14U 14 Units. Unive rs NPH-Regular 3-30 ity of Human Rec 13:13: [place] (NOVOLIN 21 Medical 70-30 Branch FLEXPEN U-100) 100 unit/mL (70-30) injection gabapentin 0 Yes 300mg Take 300 Un leanna 300 mg 3-30 mg by ity of capsule 13:13: mouth 3 [place] 21 (three) Medical times Branch daily. Insulin Yes 35U inject 35 Unive rs Regular 3-30 Units ity of Human 13:13: under the [place] (NOVOLIN R 21 skin 3 Medical FLEXPEN) (three) Branch 100 unit/mL times (3 mL) InPn daily before meals. insulin Yes 80U inject 80 Unive rs degludec 3-30 Units ity of (TRESIBA 13:13: under the [facility] FLEXTOUCH 21 skin daily Medi katja U-100) 100 before a Branc h unit/mL (3 meal. mL) InPn furosemide Yes 80mg Take 80 mg U nivers 80 mg 3-30 by mouth. ity of tablet 13:13: Takes on [place] non Medical dialysis Branch days, S,M,W and F folic Yes 1{tbl} Take 1 Univers acid/vit B 3-30 tablet by ity of complex and 13:13: mouth [place] C 21 daily. Medical (DIALYVITE Branch 800 ORAL) ALBUTEROL Yes 2{puff} Inhale 2 U nivers INHALE 3-30 Puffs 4 ity of 13:13: (four) [place] [address] times Medical daily as Branch needed. aspirin 81 Yes 81mg Take 81 mg U nivers mg chewable 3-30 by mouth ity of tablet 13:13: daily. [place] [address] Medical Branch Insulin Yes 14U 14 Units. [facility] rs NPH-Regular 3-30 ity of Human Rec 13:13: [place] (NOVOLIN 21 Medical 70-30 Branch FLEXPEN U-100) 100 unit/mL (70-30) injection metoprolol 2020- Yes 50mg Take 50 mg U nivers tartrate 50 1-06 by mouth 2 it y of mg tablet 00:00: (two) [place] 00 times Medical daily with Branch meals. metoprolol 2020-0 Yes 50mg Take 50 mg U nivers tartrate 50 1-06 by mouth 2 it y of mg tablet 00:00: (two) [place] 00 times Medical daily with Branch meals. metoprolol 2020-0 Yes 50mg Take 50 mg U nivers tartrate 50 1-06 by mouth 2 it y of mg tablet 00:00: (two) [place] 00 times Medical daily with Branch meals. metoprolol 2020-0 Yes 50mg Take 50 mg U nivers tartrate 50 1-06 by mouth 2 it y of mg tablet 00:00: (two) [place] 00 times Medical daily with Branch meals. metoprolol 2020-0 Yes 50mg Take 50 mg U nivers tartrate 50 1-06 by mouth 2 it y of mg tablet 00:00: (two) [place] 00 times Medical daily with Branch meals. metoprolol 2020-0 Yes 50mg Take 50 mg U nivers tartrate 50 1-06 by mouth 2 it y of mg tablet 00:00: (two) [place] 00 times Medical daily with Branch meals. metoprolol 2020-0 Yes 50mg Take 50 mg U nivers tartrate 50 1-06 by mouth 2 it y of mg tablet 00:00: (two) [place] 00 times Medical daily with Branch meals. metoprolol Yes 50mg Take 50 mg U nivers tartrate 50 1-06 by mouth 2 it y of mg tablet 00:00: (two) [place] 00 times Medical daily with Branch meals. metoprolol Yes 50mg Take 50 mg U nivers tartrate 50 -06 by mouth 2 it y of mg tablet 00:00: (two) [place] 00 times Medical daily with Branch meals. DULoxetine Yes 30mg 30 mg. Unive rs (CYMBALTA) 3-10 ity of 60 mg 00:00: [place] capsule Medical Branch DULoxetine 0 Yes 30mg 30 mg. Unive rs (CYMBALTA) 3-10 ity of 60 mg 00:00: [place] capsule Medical Branch DULoxetine 2015-0 Yes 30mg 30 mg. Unive rs (CYMBALTA) 3-10 ity of 60 mg 00:00: [place] capsule Medical Branch DULoxetine 2015-0 Yes 30mg 30 mg. Unive rs (CYMBALTA) 3-10 ity of 60 mg 00:00: [place] capsule Medical Branch DULoxetine 2015-0 Yes 30mg 30 mg. Unive rs (CYMBALTA) 3-10 ity of 60 mg 00:00: [place] capsule Medical Branch DULoxetine 2015-0 Yes 30mg 30 mg. Unive rs (CYMBALTA) 3-10 ity of 60 mg 00:00: [place] capsule Medical Branch DULoxetine 2015-0 Yes 30mg 30 mg. Unive rs (CYMBALTA) 3-10 ity of 60 mg 00:00: [place] capsule Medical Branch DULoxetine 2015-0 Yes 30mg 30 mg. Unive rs (CYMBALTA) 3-10 ity of 60 mg 00:00: [place] capsule Medical Branch DULoxetine 2015-0 Yes 30mg 30 mg. Unive rs (CYMBALTA) 3-10 ity of 60 mg 00:00: [place] capsule 00 Medical Branch amitriptyli 0 Yes 25mg Take 25 mg Univers ne (ELAVIL) 1-26 by mouth ity of 25 mg 00:00: at [place] tablet 00 bedtime. Medical Branch amitriptyli 0 Yes 25mg Take 25 mg Univers ne (ELAVIL) 1-26 by mouth ity of 25 mg 00:00: at [place] tablet 00 bedtime. Medical Branch amitriptyli 0 Yes 25mg Take 25 mg Univers ne (ELAVIL) 1-26 by mouth ity of 25 mg 00:00: at [place] tablet 00 bedtime. Medical Branch amitriptyli 0 Yes 25mg Take 25 mg Univers ne (ELAVIL) 1-26 by mouth ity of 25 mg 00:00: at [place] tablet 00 bedtime. Medical Branch amitriptyli 0 Yes 25mg Take 25 mg Univers ne (ELAVIL) 1-26 by mouth ity of 25 mg 00:00: at [place] tablet 00 bedtime. Medical Branch amitriptyli 0 Yes 25mg Take 25 mg Univers ne (ELAVIL) 1-26 by mouth ity of 25 mg 00:00: at [place] tablet 00 bedtime. Medical Branch amitriptyli 0 Yes 25mg Take 25 mg Univers ne (ELAVIL) 1-26 by mouth ity of 25 mg 00:00: at [place] tablet 00 bedtime. Medical Branch amitriptyli 0 Yes 25mg Take 25 mg Univers ne (ELAVIL) 1-26 by mouth ity of 25 mg 00:00: at [place] tablet 00 bedtime. Medical Branch amitriptyli 0 Yes 25mg Take 25 mg Univers ne (ELAVIL) 1-26 by mouth ity of 25 mg 00:00: at [place] tablet 00 bedtime. Medical Branch Immunizations Ordered Filled Immunization Date Status Comments [facility] e Immunization Name Name Engerix B (08-162019-09-19 Completed Universi ty of Yrs) 00:00:00 [facility] Branch Engerix B (08-162019-09-19 Completed Universi ty of Yrs) 00:00:00 [place] [facility] Engerix B (08-162019-09-19 Completed Universi ty of Yrs) 00:00:00 [facility] Branch Engerix B (08-162019-09-19 Completed Universi ty of Yrs) 00:00:00 [facility] Branch Engerix B (08-162019-09-19 Completed Universi ty of Yrs) 00:00:00 [facility] Branch Engerix B (08-162019-09-19 Completed Universi ty of Yrs) 00:00:00 [facility] Branch Engerix B (08-162019-09-19 Completed Universi ty of Yrs) 00:00:00 [facility] Branch Engerix B (08-162019-09-19 Completed Universi ty of Yrs) 00:00:00 [facility] Engerix B (08-162019-09-19 Completed Universi ty of Yrs) 00:00:00 [facility] Influenza Virus 2019-07-19 Completed Universit y of Vaccine - Whole 00:00:00 [facility] Influenza Virus 2019-07-19 Completed Universit y of Vaccine - Whole 00:00:00 [facility] Influenza Virus 2019-07-19 Completed Universit y of Vaccine - Whole 00:00:00 [facility] Influenza Virus 2019-07-19 Completed Universit y of Vaccine - Whole 00:00:00 [facility] Influenza Virus 2019-07-19 Completed Universit y of Vaccine - Whole 00:00:00 [facility] Influenza Virus 2019-07-19 Completed Universit y of Vaccine - Whole 00:00:00 [facility] Influenza Virus 2019-07-19 Completed Universit y of Vaccine - Whole 00:00:00 [facility] Influenza Virus 2019-07-19 Completed Universit y of Vaccine - Whole 00:00:00 [facility] Influenza Virus 2019-07-19 Completed Universit y of Vaccine - Whole 00:00:00 [facility] Engerix B (08-162019-05-24 Completed Universi ty of Yrs) 00:00:00 [facility] Engerix B (08-162019-05-24 Completed Universi ty of Yrs) 00:00:00 [facility] Branch Engerix B (08-162019-05-24 Completed Universi ty of Yrs) 00:00:00 [facility] Branch Engerix B (08-162019-05-24 Completed Universi ty of Yrs) 00:00:00 [facility] Branch Engerix B (08-162019-05-24 Completed Universi ty of Yrs) 00:00:00 [facility] Branch Engerix B (08-162019-05-24 Completed Universi ty of Yrs) 00:00:00 [place] [facility] Engerix B (08-162019-05-24 Completed Universi ty of Yrs) 00:00:00 [place] [facility] Engerix B (08-162019-05-24 Completed Universi ty of Yrs) 00:00:00 [place] [facility] Engerix B (08-162019-05-24 Completed Universi ty of Yrs) 00:00:00 [place] [facility] Engerix B (08-162019-04-19 Completed Universi ty of Yrs) 00:00:00 [place] [facility] Engerix B (08-162019-04-19 Completed Universi ty of Yrs) 00:00:00 [place] [facility] Engerix B (08-162019-04-19 Completed Universi ty of Yrs) 00:00:00 [place] [facility] Engerix B (08-162019-04-19 Completed Universi ty of Yrs) 00:00:00 [place] [facility] Engerix B (08-162019-04-19 Completed Universi ty of Yrs) 00:00:00 [place] [facility] Engerix B (08-162019-04-19 Completed Universi ty of Yrs) 00:00:00 [place] [facility] Engerix B (08-162019-04-19 Completed Universi ty of Yrs) 00:00:00 [place] [facility] Engerix B (08-162019-04-19 Completed Universi ty of Yrs) 00:00:00 [place] [facility] Engerix B (08-162019-04-19 Completed Universi ty of Yrs) 00:00:00 [place] [facility] Engerix B (08-162019-03-22 Completed Universi ty of Yrs) 00:00:00 [place] [facility] Engerix B (08-162019-03-22 Completed Universi ty of Yrs) 00:00:00 [place] [facility] Engerix B (08-162019-03-22 Completed Universi ty of Yrs) 00:00:00 [place] [facility] Engerix B (08-162019-03-22 Completed Universi ty of Yrs) 00:00:00 [place] [facility] Engerix B (08-162019-03-22 Completed Universi ty of Yrs) 00:00:00 [place] [facility] Engerix B (08-162019-03-22 Completed Universi ty of Yrs) 00:00:00 [facility] Engerix B (08-162019-03-22 Completed Universi ty of Yrs) 00:00:00 [facility] Engerix B (08-162019-03-22 Completed Universi ty of Yrs) 00:00:00 [facility] Engerix B (08-162019-03-22 Completed Universi ty of Yrs) 00:00:00 [facility] Influenza Virus 2019-03-03 Completed Universit y of Vaccine - Whole 00:00:00 [facility] Influenza Virus 2019-03-03 Completed Universit y of Vaccine - Whole 00:00:00 [facility] Influenza Virus 2019-03-03 Completed Universit y of Vaccine - Whole 00:00:00 [facility] Influenza Virus 2019-03-03 Completed Universit y of Vaccine - Whole 00:00:00 [facility] Influenza Virus 2019-03-03 Completed Universit y of Vaccine - Whole 00:00:00 [facility] Influenza Virus 2019-03-03 Completed Universit y of Vaccine - Whole 00:00:00 [facility] Influenza Virus 2019-03-03 Completed Universit y of Vaccine - Whole 00:00:00 [facility] Influenza Virus 2019-03-03 Completed Universit y of Vaccine - Whole 00:00:00 [facility] Influenza Virus 2019-03-03 Completed Universit y of Vaccine - Whole 00:00:00 [facility] Pneumococcal 2018-03-03 Completed University o f Polysaccharide, 00:00:00 [facility] PPSV23 (PNEUMOVAX) Branch Pneumococcal 2018-03-03 Completed University o f Polysaccharide, 00:00:00 [facility] PPSV23 (PNEUMOVAX) Branch Pneumococcal 2018-03-03 Completed University o f Polysaccharide, 00:00:00 [facility] ica PPSV23 (PNEUMOVAX) Branch Pneumococcal 2018-03-03 Completed University o f Polysaccharide, 00:00:00 [facility] ical PPSV23 (PNEUMOVAX) Branch Pneumococcal 2018-03-03 Completed University o f Polysaccharide, 00:00:00 [facility] ica PPSV23 (PNEUMOVAX) Branch Pneumococcal 2018-03-03 Completed University o f Polysaccharide, 00:00:00 [facility] PPSV23 (PNEUMOVAX) Branch Pneumococcal 2018-03-03 Completed University o f Polysaccharide, 00:00:00 [place] [facility] ical PPSV23 (PNEUMOVAX) Branch Pneumococcal 2018-03-03 Completed [place] o f Polysaccharide, 00:00:00 [place] [facility] ical PPSV23 (PNEUMOVAX) Branch Pneumococcal 2018-03-03 Completed [place] o f Polysaccharide, 00:00:00 [place] [facility] ical PPSV23 (PNEUMOVAX) Branch Vital Signs Vital Name Observation Time Observation Value Comments Source HEIGHT 2020-05-18 00:00:00 185.4 cm WEIGHT 2020-05-18 00:00:00 143.6 kg HEIGHT 2020-05-18 00:00:00 185.4 cm WEIGHT 2020-05-18 00:00:00 143.6 kg Procedures Procedure Date / Time Performed Performing Clinician [facility] e POWER OF SUPERVISOR STITCHING DEPARTMENT 2021-08-18 06:01:00 Doctor Unassigned, No [facility] [place] Name Medical Branch Encounters Start End Encounter Admission Attending Care Care Encounter Source Date/Time Date/Time Type Type Clinicians Facility Department ID 2021-07-03 [facility] [id number] [facility] 04:05:08 JEROMY 2020-05-18 Inpatient ER [facility] Cardiovascu [id number] SLE 15:07:21 [place] 2021-10-29 2021-10-29 Telephone [facility] [id number] Univers 00:00:00 00:00:00 [place] A MULTISPEC 350.1.13.10 ity of IALTY [id number] [facility] [place] [id number] [facility] [address] [place] [facility] 2021-10-21 2021-10-21 Abstract [facility] [id number] Univers 00:00:00 00:00:00 [place] A MULTISPEC [id number] ity of IALTY 4.2.7.2.686 [facility] [id number] [facility] [address] [place] [facility] 2021-10-17 2021-10-17 Telephone [facility] [id number] Univers 00:00:00 00:00:00 [place] A MULTISPEC 350.1.13.10 ity of [place] 4.2.7.2.686 [place] [id number] [facility] [address] [facility] 2021-10-16 2021-10-16 [facility] Alon BRYANNA [id number] Univers 17:17:00 23:59:00 Encounter Maulik Lima JASON 350.1.13.10 ity of [facility] 4.2.7.2.686 [place] [id number] [facility] 040 Branch 2021-10-16 2021-10-16 Outpatient R [facility] ACO [id number] Univers 00:00:00 00:00:00 [place] ity o f [facility] 2021-10-09 2021-10-09 Telephone [facility] [id number] Univers 00:00:00 00:00:00 Cristian Javon MULTISPEC 350.1.13.10 ity of IALTY 4.2.7.2.686 [facility] [place] [id number] [facility] [address] [place] [facility] 2021-10-04 2021-10-04 Committee [facility] [id number] Univers 00:00:00 00:00:00 Review [place] A MULTISPEC 350.1.13.10 ity of IALTY 4.2.7.2.686 [facility] [place] [id number] [facility] [address] [place] [facility] 2021-09-30 2021-09-30 Telephone [facility] [id number] Univers 00:00:00 00:00:00 [place] A MULTISPEC 350.1.13.10 ity of IALTY 4.2.7.2.686 [facility] CENTER [id number] [facility] [address] [place] [facility] 2021-09-09 2021-09-09 Committee [facility] [id number] Univers 00:00:00 00:00:00 Review Cristian Javon MULTISPEC 350.1.13.10 ity [place] 4.2.[place].2.686 [place] [id number] [facility] AND [facility] [address] [facility] 2021-08-26 2021-08-28 Outpatient RK, [facility] [address] [facility] 12:24:00 15:51:00 KALPNA 2021-08-18 2021-08-18 Orders Doctor BRYANNA [id number] Univers 00:00:00 00:00:00 Only Unassigned, JASON 350.1.13.10 ity of [place] [facility] 4.2.7.2.686 [place] as [id number] [facility] 009 Branch 2021-02-26 2021-02-26 Outpatient R [facility] ACO [id number] Univers 00:00:00 23:59:00 MAULIK ity o f [facility] 2020-07-13 2020-07-13 Committee [facility] [id number] 00:00:00 00:00:00 Review Maulik A MULTISPEC 350.1.13.10 IALTY 4.2.7.2.686 CENTER [id number] [facility] 2020-07-13 2020-07-13 Abstract [facility] [id number] 00:00:00 00:00:00 [place] A MULTISPEC 350.1.13.10 IALTY 4.2.7.2.686 CENTER [id number] [facility] 2020-07-12 2020-07-12 Abstract [facility] [id number] 00:00:00 00:00:00 [place] A MULTISPEC 350.1.13.10 IALTY 4.2.7.2.686 [place] [id number] [facility] 2020-07-10 2020-07-10 Telephone [facility] [id number] 00:00:00 00:00:00 [place] A MULTISPEC 350.1.13.10 IALTY 4.2.7.2.686 [place] [id number] [facility] 2020-06-20 2020-06-20 Outpatient EL JAMEY [facility] [id number] SLE 00:00:00 00:00:00 JEROMY 2020-06-14 2020-06-14 Outpatient MARY CONCEPCION [facility] [id number] SLE 00:00:00 00:00:00 JEROMY Results Test Description Test Time Test Comments Results Result Comments Source (CELLAVISION MANUAL DIFF) 2020-06-08 16:52:00 Test Item Value Reference Range Interpretation Comme nts NEUTROPHILS - REL (CELLAVISION)(BEAKER) (test code = 2816) 80 % LYMPHOCYTES - REL (CELLAVISION)(BEAKER) (test code = 2817) 12 % MONOCYTES - REL (CELLAVISION)(BEAKER) (test code = 2818) 3 % EOSINOPHILS - REL (CELLAVISION)(BEAKER) (test code = 2819) 4 % ATYPICAL LYMPHOCYTES - REL (CELLAVISION)(BEAKER) (test code 1 % 0-0 H = 2829) NEUTROPHILS - ABS (CELLAVISION)(BEAKER) (test code = 2830) 7.68 K/ul 1.78-5.38 H LYMPHOCYTES - ABS (CELLAVISION)(BEAKER) (test code = 2831) 1.15 K/ul 1.32-3.57 L MONOCYTES - ABS (CELLAVISION)(BEAKER) (test code = 2832) 0.29 K/uL 0.30-0.82 L EOSINOPHILS - ABS (CELLAVISION)(BEAKER) (test code = 2834) 0.38 K/u L 0.04-0.54 ATYPICAL LYMPHOCYTES - ABS (CELLAVISION)(BEAKER) (test code 0.10 K/uL 0.00-0.00 H = 2858) TOTAL COUNTED (BEAKER) (test code = 1351) 100 WBC MORPHOLOGY (BEAKER) (test code = 487) Normal GIANT PLATELETS (BEAKER) (test code = 313) Present POIKILOCYTES (BEAKER) (test code = 966) 2+ moderate SPHEROCYTES (BEAKER) (test code = 768) 1+ few ELLIPTOCYTES (BEAKER) (test code = 962) 1+ few JONATHAN CELLS (BEAKER) (test code = 474) 1+ few ARTIFACT (CELLAVISION)(BEAKER) (test code = 3432) Present PLATELET CONCENTRATION (CELLAVISION)(BEAKER) (test code = Adequate 3438) Lighting Engineer ID - jose Kwong comments: Slide comments:CBC W/PLT COUNT & AUTO [id number] 08:09:00 Test Item Value Reference Range Interpretation [...] 2801) CBC WITH PLATELET COUNT + MANUAL [id number] 08:09:00 Test Item Value Reference Range Interpretation [...] 0-0 (BEAKER) (test code = 413) POCT-GLUCOSE [id number] 07:41:00 Test Item Value Reference Range Interpretation Comments POC-GLUCOSE METER 121 mg/dL 70-110 H : TESTED A T [facility] 6720 (BEAKER) (test code = [place], 1538) 15456: Lighting Engineer/Techni john ID = [id number] for CHARLES DIOP POCT-GLUCOSE [id number] 21:25:00 Test Item Value Reference Range Interpretation Comments POC-GLUCOSE METER 135 mg/dL 70-110 H : TESTED A T [facility] 6720 (BEAKER) (test code = [facility], 153) 71927: Lighting Engineer/Techni john ID = [id number] for Khadijah Fitzgerald POCT-GLUCOSE [id number] 16:20:00 Test Item Value Reference Range Interpretation Comments POC-GLUCOSE METER 144 mg/dL 70-110 H : TESTED A T [facility] 6720 (BEAKER) (test code = [facility], 1538) 94127: Lighting Engineer/Techni john ID = [id number] for CHARLES DIOP POCT-GLUCOSE [id number] 11:17:00 Test Item Value Reference Range Interpretation Comments POC-GLUCOSE METER 146 mg/dL 70-110 H : TESTED A T [facility] 6720 (BEAKER) (test code = [facility], 153) 85791: Lighting Engineer/Techni john ID = [id number] for Darcie Lacy (CELLAVISION MANUAL DIFF)2020-06-07 10:40:00 [...] CONCENTRATION Increased (CELLAVISION)(BEAKER) (test code = 3438) Lighting Engineer ID - Carissa OverholtUser comments: Slide comments:[id number] 10:28:00 Test Item Value Reference Range Interpretation Comments PHOSPHORUS (BEAKER) (test code = 3.8 mg/dL 2.3-4.7 604) Lighting Engineer ID - AAHAMIDBASIC METABOLIC [id number] 08:07:00 Test Item Value Reference Range Interpretation [...] 697) EGFR (BEAKER) (test 14 mL/min/1.73 ESTIMA JASPER GFR IS code = 1092) sq m NOT ACCURATE CREATININE CLEARANCE IN PREDICTING GLOMERULAR FILTRATION RATE . ESTIMATED GFR I S NOT APPLICABLE FOR DIALYSIS PATIEN TS. Lighting Engineer ID - [id number] 07:57:00 Test Item Value Reference Range Interpretation Comments MAGNESIUM (BEAKER) (test code = 2.0 mg/dL 1.6-2.6 627) Lighting Engineer ID - EDASIPOCT-GLUCOSE [id number] 07:52:00 Test Item Value Reference Range Interpretation Comments POC-GLUCOSE METER 126 mg/dL 70-110 H : TESTED A T [facility] 6720 (BEAKER) (test code = [place], 1538) 20259: Lighting Engineer/Techni john ID = [id number] for CHARLES DIOP CBC WITH PLATELET COUNT + MANUAL [id number] 05:35:00 Test Item Value Reference Range Interpretation [...] = 413) RAD, CHEST, 1 VIEW, NON [id number] 04:49:00Reason for exam:->POD1 pericardial window, evaluate for interval changeShould this be performed at the bedside?->YesFINAL REPORT CLINICAL INDICATION: Postop Comparison: 06/06/2020 The cardiomediastinal contours are stable. The lung volumes remain low. Central pulmonary vascular congestion and bilateral parenchymal opacities are similar within variation of acquisition technique. A tiny left apical pneumothorax is unchanged. Signed: Amberly Arandaeport Verified Date/Time: 06/07/2020 04:49:46 POCT-GLUCOSE [id number] 21:22:00 Test Item Value Reference Range Interpretation Comments POC-GLUCOSE METER 168 mg/dL 70-110 H : TESTED A T [facility] 6720 (BEAKER) (test code = [facility], 1538) [id number]: Lighting Engineer/Techni john ID = [id number] for PE RALES, MARCI POCT-GLUCOSE [id number] 16:48:00 Test Item Value Reference Range Interpretation Comments POC-GLUCOSE METER 115 mg/dL 70-110 H : TESTED A T [facility] 6720 (BEAKER) (test code = [employer] [place], 1538) 78767: Lighting Engineer/Techni john ID = [id number] for CHARLES DIOP BASIC METABOLIC [id number] 12:41:00 Test Item Value Reference Range Interpretation [...] 697) EGFR (BEAKER) (test 15 mL/min/1.73 ESTIMA JASPER GFR IS code = 1092) sq m NOT ACCURATE CREATININE CLEARANCE IN PREDICTING GLOMERULAR FILTRATION RATE . ESTIMATED GFR I S NOT APPLICABLE FOR DIALYSIS PATIEN TS. Lighting Engineer ID - PIAYA LPOCT-GLUCOSE [id number] 11:43:00 Test Item Value Reference Range Interpretation Comments POC-GLUCOSE METER 190 mg/dL 70-110 H : TESTED A T [facility] 6720 (BEAKER) (test code = [facility], 1538) 76357: Lighting Engineer/Techni john ID = [id number] for CHARLES DIOP POCT-GLUCOSE [id number] 07:31:00 Test Item Value Reference Range Interpretation Comments POC-GLUCOSE METER 135 mg/dL 70-110 H : TESTED A T [facility] 6720 (BEAKER) (test code = [facility], 1538) 29694: Lighting Engineer/Techni john ID = [id number] for Sourav Villavicencio CBC W/PLT COUNT & AUTO [id number] 07:02:00 Test Item Value Reference Range Interpretation [...] = 2801) RAD, CHEST, 1 VIEW, NON [id number] 05:45:00Reason for exam:->POD1 pericardial window, evaluate for [...] tiny left apical pneumothorax. Signed: Miguel Doe [facility] Verified Date/Time: 06/06/2020 05:45:02 POCT-GLUCOSE [id number] 23:15:00 Test Item Value Reference Range Interpretation Comments POC-GLUCOSE METER 118 mg/dL 70-110 H : TESTED A T [facility] 6720 (BEAKER) (test code = [facility], 1538) 09976: Lighting Engineer/Techni jhon ID = [id number] for MARCI ROD POCT-GLUCOSE [id number] 18:06:00 Test Item Value Reference Range Interpretation Comments POC-GLUCOSE METER 111 mg/dL 70-110 H : TESTED A T [facility] 6720 (BEAKER) (test code = [facility], 1538) 832[address]: Lighting Engineer/Techni john ID = [id number] for Louann Means CALCIUM, [id number] 14:37:00 Test Item Value Reference Range Interpretation Comments CALCIUM IONIZED (BEAKER) (test 1.10 mmol/L 1.12-1.27 L code = 698) PH, BLOOD (BEAKER) (test code = 7.45 1810) POCT-GLUCOSE [id number] 14:00:00 Test Item Value Reference Range Interpretation Comments POC-GLUCOSE METER 180 mg/dL 70-110 H : TESTED A T [facility] 6720 (BEAKER) (test code = [facility], 1538) 66015: Lighting Engineer/Techni john ID = [id number] for Louann Means BASIC METABOLIC [id number] 07:14:00 Test Item Value Reference Range Interpretation [...] 697) EGFR (BEAKER) (test 10 mL/min/1.73 ESTIMA JASPER GFR IS code = 1092) sq m NOT ACCURATE CREATININE CLEARANCE IN PREDICTING GLOMERULAR FILTRATION RATE . ESTIMATED GFR I S NOT APPLICABLE FOR DIALYSIS PATIEN TS. Lighting Engineer ID - JIMBO [id number] 07:08:00 Test Item Value Reference Range Interpretation Comments MAGNESIUM (BEAKER) 2.2 mg/dL 1.6-2.6 Specimen slightly (test code = 627) hemolyzed Lighting Engineer ID - JIMBO [id number] 07:08:00 Test Item Value Reference Range Interpretation Comments PHOSPHORUS (BEAKER) 5.3 mg/dL 2.3-4.7 H Specimen slightly (test code = 604) hemolyzed Lighting Engineer ID - JIMBO LCBC (HEMOGRAM ONLY)2020-06-05 06:46:00 Test Item Value Reference [...] 0-0 (BEAKER) (test code = 413) POCT-GLUCOSE [id number] 06:17:00 Test Item Value Reference Range Interpretation Comments POC-GLUCOSE METER 126 mg/dL 70-110 H : TESTED A T [facility] 6720 (BEAKER) (test code = [facility], 1538) 50555: Lighting Engineer/Techni john ID = [id number] for Sharyn Cotton (contra ct) RAD, CHEST, 1 VIEW, NON [id number] 02:20:00Reason for exam:->POD1 pericardial window, evaluate for [...] contours. Additional findings: None. Signed: Jules Bullard MDRepemmett Verified Date/Time: 06/05/2020 02:20:42 POCT-GLUCOSE [id number] 16:06:00 Test Item Value Reference Range Interpretation Comments POC-GLUCOSE METER 199 mg/dL 70-110 H : TESTED A T [facility] 6720 (BEAKER) (test code = [facility], 1538) 32848: Lighting Engineer/Techni john ID = [id number] for [place], Fursan POCT-GLUCOSE [id number] 13:04:00 Test Item Value Reference Range Interpretation Comments POC-GLUCOSE METER 238 mg/dL 70-110 H : TESTED A T [facility] 6720 (BEAKER) (test code = [facility], 1538) 68790: Lighting Engineer/Techni john ID = [id number] for [place], Fursan POCT-GLUCOSE [id number] 08:13:00 Test Item Value Reference Range Interpretation Comments POC-GLUCOSE METER 173 mg/dL 70-110 H : TESTED A T [facility] 6720 (BEAKER) (test code = [facility], 1538) 59638: Lighting Engineer/Techni john ID = [id number] for Sa [place], Fursan BASIC METABOLIC [id number] 04:42:00 Test Item Value Reference Range Interpretation [...] 697) EGFR (BEAKER) (test 11 mL/min/1.73 ESTIMA JASPER GFR IS code = 1092) sq m NOT ACCURATE CREATININE CLEARANCE IN PREDICTING GLOMERULAR FILTRATION RATE . ESTIMATED GFR I S NOT APPLICABLE FOR DIALYSIS PATIEN TS. Lighting Engineer ID - KIMBERLY [id number] 04:40:00 Test Item Value Reference Range Interpretation Comments MAGNESIUM (BEAKER) (test code = 2.0 mg/dL 1.6-2.6 627) Lighting Engineer ID - KIMBERLY MCBC W/PLT COUNT & AUTO [id number] 04:19:00 Test Item Value Reference Range Interpretation [...] = 2801) RAD, CHEST, 1 VIEW, NON [id number] 03:20:00Reason for exam:->POD1 pericardial window, evaluate for interval changeShould this be performed at the bedside?->YesFINAL REPORT CLINICAL INDICATION: Postop Comparison: 06/03/2020 The cardiomediastinal contours are stable. The lung volumes remain low. Central pulmonary vascular congestion and bilateral parenchymal and pleural opacities are similar within variation of acquisition technique. There is no pneumothorax. Support lines are stable. Signed: Amberly [facility] Verified Date/Time: 06/04/2020 03:20:20 POCT-GLUCOSE [id number] 17:50:00 Test Item Value Reference Range Interpretation Comments POC-GLUCOSE METER 172 mg/dL 70-110 H : TESTED A T [facility] 6720 (BEAKER) (test code [facility], = 1538) 90023: Lighting Engineer/Techni john ID = [id number] for SARBJIT NEWMAN BLOOD GAS, [id number] 17:22:00 Test Item Value Reference Range Interpretation [...] 21-29 = 388) BASE EXCESS ARTERIAL (BEAKER) -0.2 mmol/L -2.0-3.0 (test code = 387) PATIENT TEMPERATURE (BEAKER) 36.8 C (test code = 1818) FIO2 (BEAKER) (test code = 1819) 40.0 % BLOOD GAS, [id number] 14:39:00 Test Item Value Reference Range Interpretation [...] code = 1819) 40.0 % BASIC METABOLIC [id number] 12:25:00 Test Item Value Reference Range Interpretation [...] 697) EGFR (BEAKER) (test 12 mL/min/1.73 ESTIMA JASPER GFR IS code = 1092) sq m NOT ACCURATE CREATININE CLEARANCE IN PREDICTING GLOMERULAR FILTRATION RATE . ESTIMATED GFR I S NOT APPLICABLE FOR DIALYSIS PATIEN TS. Lighting Engineer ID Kyle COLBERT [id number] 12:22:00 Test Item Value Reference Range Interpretation Comments PHOSPHORUS (BEAKER) (test code = 6.5 mg/dL 2.3-4.7 H 604) Lighting Engineer ID - SAYRA [id number] 12:22:00 Test Item Value Reference Range Interpretation Comments MAGNESIUM (BEAKER) (test code = 2.0 mg/dL 1.6-2.6 627) Lighting Engineer ID Kyle COLBERT FLACTIC ACID, [id number] 12:16:00 Test Item Value Reference Range Interpretation Comments LACTATE BLOOD ARTERIAL (2) 1.2 mmol/L 0.5-2.2 (BEAKER) (test code = 2874) Lighting Engineer ID Kyle COLBERT FPROTHROMBIN TIME/[id number] 11:59:00 Test Item Value Reference Range Interpretation [...] INR is2.5-3.5 for patients wiht mechanical heart valves.[id number] 11:59:00 Test Item Value Reference Range Interpretation Comments FIBRINOGEN LEVEL (BEAKER) (test 524 mg/dl 225-434 H code = 658) [id number] 11:59:00 Test Item Value Reference Range Interpretation [...] = 413) RAD, CHEST, 1 VIEW, NON [id number] 11:37:00Reason for exam:->s/p pericardial window, evaluate for [...] MDReport Verified Date/Time: 06/03/2020 11:37:45 Reading Location: [address] Transitional Reading Room CALCIUM, [id number] 10:43:00 Test Item Value Reference Range Interpretation Comments CALCIUM IONIZED (BEAKER) (test 1.12 mmol/L 1.12-1.27 code = 698) PH, BLOOD (BEAKER) (test code = 7.31 1810) BLOOD GAS, [id number] 10:43:00 Test Item Value Reference Range Interpretation [...] code = 1819) 50.0 % BASIC METABOLIC [id number] 08:08:00 Test Item Value Reference Range Interpretation [...] 697) EGFR (BEAKER) (test 13 mL/min/1.73 ESTIMA JASPER GFR IS code = 1092) sq m NOT ACCURATE CREATININE CLEARANCE IN PREDICTING GLOMERULAR FILTRATION RATE . ESTIMATED GFR I S NOT APPLICABLE FOR DIALYSIS PATIEN TS. Lighting Engineer ID - SAYRA [id number] 07:02:00 Test Item Value Reference Range Interpretation Comments MAGNESIUM (BEAKER) (test code = 2.1 mg/dL 1.6-2.6 627) Lighting Engineer ID - SAYRA FSARS-COV2/RT-PCR ([facility])2020-06-03 00:00:00 Test Item Value Reference Range Interpretation Comments SARS-COV2/RT-PCR (test code Negative Not Detected, Negative, = 9564763) See external report for linked test SARS-COV-2 PERFORMING LAB [facility] (test code = 6354856) Negative results do not preclude SARS-CoV-2 infection [...] of the Act.Fact Sheet for Healthcare Pro viders:https://www.[employer]/Documents/Xpert%20Xpress%20SARS%20CoV-2/Fact%20Sh eets/302-3802%28NRGM-SXL-2%20HEALTHCARE%20PROVIDERS%20FACT%20SHEET.pdfFact Sheet for Healthcare Patients:https://www.[employer]/Documents/Xpert%20Xpress%20SARS%20CoV-2/Fact%20Sheets/302-3801%20SARS-COV -2%20PATIENT%20FACT%20SHEET.pdfPerforming Laboratory:[facility], [place] [address]AOPN-AWFUDMU [id number] 16:29:00 Test Item Value Reference Range Interpretation Comments POC-GLUCOSE METER 194 mg/dL 70-110 H : TESTED A T [facility] 6720 (ALICIA) (test code = [facility] Chaney [facility], 1538) 18893: Lighting Engineer/Techni john ID = [id number] for CHARLES DIOP CT, CHEST, WITHOUT [id number] 16:02:00Unlisted Reason for Exam - Click Yes [...] MDReport Verified Date/Time: 06/02/2020 16:02:43 Reading Location: [address] Reading Room POCT-GLUCOSE [id number] 11:34:00 Test Item Value Reference Range Interpretation Comments POC-GLUCOSE METER 148 mg/dL 70-110 H : TESTED A T [facility] 6720 (BEAKER) (test code = [facility], 1538) 16240: Lighting Engineer/Techni john ID = [id number] for CHARLES DIOP POCT-GLUCOSE [id number] 07:43:00 Test Item Value Reference Range Interpretation Comments POC-GLUCOSE METER 124 mg/dL 70-110 H : TESTED A T [facility] 6720 (BEAKER) (test code = [facility], 1538) 43952: Lighting Engineer/Techni john ID = [id number] for CHARLES DIOP BASIC METABOLIC [id number] 06:35:00 Test Item Value Reference Range Interpretation [...] 697) EGFR (BEAKER) (test 10 mL/min/1.73 ESTIMA JASPER GFR IS code = 1092) sq m NOT ACCURATE CREATININE CLEARANCE IN PREDICTING GLOMERULAR FILTRATION RATE . ESTIMATED GFR I S NOT APPLICABLE FOR DIALYSIS PATIEN TS. Lighting Engineer ID - JIMBO [id number] 06:25:00 Test Item Value Reference Range Interpretation Comments MAGNESIUM (BEAKER) (test code = 2.1 mg/dL 1.6-2.6 627) Lighting Engineer ID - JIMBO LCBC W/PLT COUNT & AUTO [id number] 04:28:00 Test Item Value Reference Range Interpretation [...] PERCENT (BEAKER) (test code = 2801) POCT-GLUCOSE [id number] 21:21:00 Test Item Value Reference Range Interpretation Comments POC-GLUCOSE METER 127 mg/dL 70-110 H : TESTED A T [facility] 6720 (BEAKER) (test code = [facility] Ch[facility], 1538) 71783: Lighting Engineer/Techni john ID = [id number] for PE RALES, MARCI RAD, CHEST, 1 VIEW, NON [id number] 20:04:00Reason for exam:->short of breathShould this be performed at the bedside?->YesFINAL REPORT RAD, CHEST, 1 VIEW, NON DEPT INDICATION: short of breath COMPARISON: May 30, 2020 FINDINGS: Portable frontal view of the chest. IMPRESSION: Support Lines: None Lungs and pleura: Left greater than right airspace disease has increased suggesting worsening pulmonary edema but infection with superimposed atelectasis not excluded. Giuvb-rc-xzkkxbke left pleural effusion suspected. Small right pleural effusion not excluded. No pneumothorax.Heart and mediastinum:Stable cardiomegaly. Additional findings: Median sternotomy changes. Signed: Jules Bullard MDReport Verified Date/Time: 06/01/2020 20:04:25 POCT- GLUCOSE [id number] 19:57:00 Test Item Value Reference Range Interpretation Comments POC-GLUCOSE METER 156 mg/dL 70-110 H : TESTED A T [facility] 6720 (BEAKER) (test code = [facility], 1538) 97001: Lighting Engineer/Techni john ID = [id number] for RUSS PARIS POCT-GLUCOSE [id number] 16:47:00 Test Item Value Reference Range Interpretation Comments POC-GLUCOSE METER 159 mg/dL 70-110 H : TESTED A T [facility] 6720 (BEAKER) (test code = [facility], 1538) 43846: Lighting Engineer/Techni john ID = [id number] for CHARLES DIOP POCT-GLUCOSE [id number] 11:31:00 Test Item Value Reference Range Interpretation Comments POC-GLUCOSE METER 158 mg/dL 70-110 H : TESTED A T [facility] 6720 (BEAKER) (test code = [facility], 1538) 52332: Lighting Engineer/Techni john ID = [id number] for BRENDON DIOPNDY POCT-GLUCOSE [id number] 07:35:00 Test Item Value Reference Range Interpretation Comments POC-GLUCOSE METER 133 mg/dL 70-110 H : TESTED A T [facility] 6720 (BEAKER) (test code = [facility], 1538) 75112: Lighting Engineer/Techni john ID = [id number] for BRENDON DIOPNDY BASIC METABOLIC [id number] 07:02:00 Test Item Value Reference Range Interpretation [...] 697) EGFR (BEAKER) (test 13 mL/min/1.73 ESTIMA JASPER GFR IS code = 1092) sq m NOT ACCURATE CREATININE CLEARANCE IN PREDICTING GLOMERULAR FILTRATION RATE . ESTIMATED GFR I S NOT APPLICABLE FOR DIALYSIS PATIEN TS. Lighting Engineer ID - PIAYA [id number] 06:59:00 Test Item Value Reference Range Interpretation Comments MAGNESIUM (BEAKER) (test code = 2.0 mg/dL 1.6-2.6 627) Lighting Engineer ID - PIAYA LPOCT-GLUCOSE [id number] 20:36:00 Test Item Value Reference Range Interpretation Comments POC-GLUCOSE METER 173 mg/dL 70-110 H : TESTED A T [facility] 6720 (BEAKER) (test code = [facility], 153) 61678: Lighting Engineer/Techni john ID = [id number] for Khadijah Fitzgerald POCT-GLUCOSE [id number] 16:11:00 Test Item Value Reference Range Interpretation Comments POC-GLUCOSE METER 152 mg/dL 70-110 H : TESTED A T [facility] 6720 (BEAKER) (test code = [facility], 1538) 73045: Lighting Engineer/Techni john ID = [id number] for CHELE COONEY POCT-GLUCOSE [id number] 13:35:00 Test Item Value Reference Range Interpretation Comments POC-GLUCOSE METER 85 mg/dL 70-110 : TESTED A T [facility] 6720 (BEAKER) (test code = [facility], 1538) 31928: Lighting Engineer/Techni john ID = [id number] for KHADIJAH GLYNN POCT-GLUCOSE [id number] 08:09:00 Test Item Value Reference Range Interpretation Comments POC-GLUCOSE METER 129 mg/dL 70-110 H : TESTED A T [facility] 6720 (BEAKER) (test code = [facility], 153) 98431: Lighting Engineer/Techni john ID = [id number] for CHELE COONEY BASIC METABOLIC [id number] 07:56:00 Test Item Value Reference Range Interpretation [...] 697) EGFR (BEAKER) (test 11 mL/min/1.73 ESTIMA JASPER GFR IS code = 1092) sq m NOT ACCURATE CREATININE CLEARANCE IN PREDICTING GLOMERULAR FILTRATION RATE . ESTIMATED GFR I S NOT APPLICABLE FOR DIALYSIS PATIEN TS. Lighting Engineer ID - [id number] 07:34:00 Test Item Value Reference Range Interpretation Comments MAGNESIUM (BEAKER) (test code = 2.1 mg/dL 1.6-2.6 627) Lighting Engineer ID - LACBC (HEMOGRAM ONLY)2020-05-31 06:09:00 Test [...] 0-0 (BEAKER) (test code = 413) POCT-GLUCOSE [id number] 21:30:00 Test Item Value Reference Range Interpretation Comments POC-GLUCOSE METER 111 mg/dL 70-110 H : TESTED A T [facility] 6720 (BEAKER) (test code = [facility], 1538) 81683: Lighting Engineer/Techni john ID = [id number] for DA LATASHA VILLANUEVAO POCT-GLUCOSE [id number] 16:34:00 Test Item Value Reference Range Interpretation Comments POC-GLUCOSE METER 122 mg/dL 70-110 H : TESTED A T [facility] 6720 (BEAKER) (test code = [facility], 1538) 69159: Lighting Engineer/Techni john ID = [id number] for Do Rodger webern POCT-GLUCOSE [id number] 11:46:00 Test Item Value Reference Range Interpretation Comments POC-GLUCOSE METER 146 mg/dL 70-110 H : TESTED A T [facility] 6720 (BEAKER) (test code = [facility], 1538) 64955: Lighting Engineer/Techni john ID = [id number] for Do minguez, Sourav RAD, CHEST, 1 VIEW, NON [id number] 09:15:00Reason for exam:->short of breathShould this be [...] MDReport Verified Date/Time: 05/30/2020 09:15:42 Reading Location: [facility] Radiology Reading Room POCT- GLUCOSE [id number] 07:07:00 Test Item Value Reference Range Interpretation Comments POC-GLUCOSE METER 138 mg/dL 70-110 H : TESTED A T [facility] 6720 (BEAKER) (test code = [facility] [place], 1538) 46323: Lighting Engineer/Techni john ID = [id number] for Sourav Villavicencio BASIC METABOLIC [id number] 06:46:00 Test Item Value Reference Range Interpretation [...] 697) EGFR (BEAKER) (test 15 mL/min/1.73 ESTIMA JASPER GFR IS code = 1092) sq m NOT ACCURATE CREATININE CLEARANCE IN PREDICTING GLOMERULAR FILTRATION RATE . ESTIMATED GFR I S NOT APPLICABLE FOR DIALYSIS PATIEN TS. Lighting Engineer ID - [id number] 06:39:00 Test Item Value Reference Range Interpretation Comments MAGNESIUM (BEAKER) (test code = 2.0 mg/dL 1.6-2.6 627) Lighting Engineer ID - EDASICBC (HEMOGRAM ONLY)2020-05-30 06:11:00 Test [...] 0-0 (BEAKER) (test code = 413) POCT-GLUCOSE [id number] 21:08:00 Test Item Value Reference Range Interpretation Comments POC-GLUCOSE METER 88 mg/dL 70-110 : TESTED A T [facility] 6720 (BEAKER) (test code = [facility], 153) 22936: Lighting Engineer/Techni john ID = [id number] for ALEN CHAPMAN POCT-GLUCOSE [id number] 16:49:00 Test Item Value Reference Range Interpretation Comments POC-GLUCOSE METER 161 mg/dL 70-110 H : TESTED A T [facility] 6720 (BEAKER) (test code = [facility], 153) 50375: Lighting Engineer/Techni john ID = [id number] for KRISTEN TELLEZ POCT-GLUCOSE [id number] 12:43:00 Test Item Value Reference Range Interpretation Comments POC-GLUCOSE METER 143 mg/dL 70-110 H : TESTED A T [facility] 6720 (BEAKER) (test code = [facility], 153) 32034: Lighting Engineer/Techni john ID = [id number] for GUTIERREZ SOLER POCT-GLUCOSE [id number] 09:33:00 Test Item Value Reference Range Interpretation Comments POC-GLUCOSE METER 144 mg/dL 70-110 H : TESTED A T [facility] 6720 (BEAKER) (test code = [facility] [place], 1538) 27964: Lighting Engineer/Techni john ID = [id number] for RAFY STEVENS B-TYPE NATRIURETIC FACTOR (BNP)2020-05-29 07:02:00 Test Item Value Reference Range Interpretation Comments B-TYPE NATRIURETIC PEPTIDE (BEAKER) 491 pg/mL 0-100 H (test code = 700) Lighting Engineer ID - DBBASIC METABOLIC [id number] 06:59:00 Test Item Value Reference Range Interpretation [...] 697) EGFR (BEAKER) (test 13 mL/min/1.73 ESTIMA JASPER GFR IS code = 1092) sq m NOT ACCURATE CREATININE CLEARANCE IN PREDICTING GLOMERULAR FILTRATION RATE . ESTIMATED GFR I S NOT APPLICABLE FOR DIALYSIS PATIEN TS. Lighting Engineer ID - [id number] 06:56:00 Test Item Value Reference Range Interpretation Comments MAGNESIUM (BEAKER) (test code = 2.0 mg/dL 1.6-2.6 627) Lighting Engineer ID - EDASICBC (HEMOGRAM ONLY)2020-05-29 06:45:00 Test [...] 0-0 (BEAKER) (test code = 413) POCT-GLUCOSE [id number] 21:18:00 Test Item Value Reference Range Interpretation Comments POC-GLUCOSE METER 196 mg/dL 70-110 H : TESTED A T [facility] 6720 (BEAKER) (test code = [facility], 153) 19526: Lighting Engineer/Techni john ID = [id number] for Khadijah Fitzgerald POCT-GLUCOSE [id number] 16:44:00 Test Item Value Reference Range Interpretation Comments POC-GLUCOSE METER 220 mg/dL 70-110 H : TESTED A T [facility] 6720 (BEAKER) (test code = [facility], 153) 81721: Lighting Engineer/Techni john ID = [id number] for ZA VALA, ERANDY POCT-GLUCOSE [id number] 11:13:00 Test Item Value Reference Range Interpretation Comments POC-GLUCOSE METER 205 mg/dL 70-110 H : TESTED A T [facility] 6720 (BEAKER) (test code = [facility], 1538) 96652: Lighting Engineer/Techni john ID = [id number] for ZA VALA, ERANDY POCT-GLUCOSE [id number] 07:18:00 Test Item Value Reference Range Interpretation Comments POC-GLUCOSE METER 163 mg/dL 70-110 H : TESTED A T [facility] 6720 (BEAKER) (test code = [facility], 1538) 64246: Lighting Engineer/Techni john ID = [id number] for CHARLES DIOP BASIC METABOLIC [id number] 05:59:00 Test Item Value Reference Range Interpretation [...] 697) EGFR (BEAKER) (test 15 mL/min/1.73 ESTIMA JASPER GFR IS code = 1092) sq m NOT ACCURATE CREATININE CLEARANCE IN PREDICTING GLOMERULAR FILTRATION RATE . ESTIMATED GFR I S NOT APPLICABLE FOR DIALYSIS PATIEN TS. Lighting Engineer ID - JIMBO [id number] 05:53:00 Test Item Value Reference Range Interpretation Comments PHOSPHORUS (BEAKER) (test code = 3.2 mg/dL 2.3-4.7 604) Lighting Engineer ID - JIMBO LCBC (HEMOGRAM ONLY)2020-05-28 05:06:00 Test Item Value [...] 0-0 (BEAKER) (test code = 413) POCT-GLUCOSE [id number] 21:28:00 Test Item Value Reference Range Interpretation Comments POC-GLUCOSE METER 219 mg/dL 70-110 H : TESTED A T [facility] 6720 (BEAKER) (test code = [facility], 153) 73534: Lighting Engineer/Techni john ID = [id number] for Cecille ochoa Khadijah POCT-GLUCOSE [id number] 16:43:00 Test Item Value Reference Range Interpretation Comments POC-GLUCOSE METER 182 mg/dL 70-110 H : TESTED A T [facility] 6720 (BEAKER) (test code = [facility], 153) 50997: Lighting Engineer/Techni john ID = [id number] for HU NTER, HIWITHA POCT-GLUCOSE [id number] 11:48:00 Test Item Value Reference Range Interpretation Comments POC-GLUCOSE METER 184 mg/dL 70-110 H : TESTED A T [facility] 6720 (BEAKER) (test code = [facility], 153) 95277: Lighting Engineer/Techni john ID = [id number] for HU NTER, HIWITHA POCT-GLUCOSE [id number] 06:59:00 Test Item Value Reference Range Interpretation Comments POC-GLUCOSE METER 150 mg/dL 70-110 H : TESTED A T [facility] 6720 (BEAKER) (test code = [facility], 153) 21911: Lighting Engineer/Techni john ID = [id number] for HU NTER, HIWITHA BASIC METABOLIC [id number] 05:24:00 Test Item Value Reference Range Interpretation [...] 697) EGFR (BEAKER) (test 17 mL/min/1.73 ESTIMA JASPER GFR IS code = 1092) sq m NOT ACCURATE CREATININE CLEARANCE IN PREDICTING GLOMERULAR FILTRATION RATE . ESTIMATED GFR I S NOT APPLICABLE FOR DIALYSIS PATIEN TS. Lighting Engineer ID - PIAYA [id number] 05:23:00 Test Item Value Reference Range Interpretation Comments PHOSPHORUS (BEAKER) (test code = 3.1 mg/dL 2.3-4.7 604) Lighting Engineer ID - PIAYA LCBC (HEMOGRAM ONLY)2020-05-27 04:36:00 Test Item Value [...] 0-0 (BEAKER) (test code = 413) POCT-GLUCOSE [id number] 21:17:00 Test Item Value Reference Range Interpretation Comments POC-GLUCOSE METER 217 mg/dL 70-110 H : TESTED A T [facility] 6720 (BEAKER) (test code = [facility], 1538) 61492: Lighting Engineer/Techni john ID = [id number] for HYACINTH ALVAREZ III POCT-GLUCOSE [id number] 16:12:00 Test Item Value Reference Range Interpretation Comments POC-GLUCOSE METER 193 mg/dL 70-110 H : TESTED A T [facility] 6720 (BEAKER) (test code = CAT[facility] Shiv [facility], 1538) 18081: Lighting Engineer/Techni john ID = [id number] for CHARLES DIOP SARS-COV2/RT-PCR ([facility])2020-05-26 11:56:00 Test Item Value Reference Range Interpretation Comments SARS-COV2/RT-PCR (test Negative Not Detected, Negative, code = 3033457) See external report for linked test SARS-COV-2 PERFORMING LAB [facility] (test code = 5791041) Negative result for this test determines that [...] 564(g) of the Act.Fact Sheet for Healthcare Providers:https://www.[employer]/sites/default/files/product/documents/Fact_Shee f_NS_Pbtbssdlo_Kqsl_ACJZ-GqH-1.pdfFact Sheet for Healthcare Patients:https://www.[employer]/sites/default/files/product/ documents/Wcjv_Inqez_Lpulxmie_Jqvy_ZBHE-EpD-4.pdfPerforming Laboratory:[address], [place] [address]HVZH-HYAQLIY METER 2020-05-26 11:44:00 Test Item Value Reference Range Interpretation Comments POC-GLUCOSE METER 207 mg/dL 70-110 H : Notified RN/MD: (ALICIA) (test code = TESTED AT [facility] [id number]) [facility], [id number]: Lighting Engineer/Techni john ID = [id number] for Veronica Davenport BASIC METABOLIC [id number] 06:54:00 Test Item Value Reference Range Interpretation Comments SODIUM (BEAKER) 138 meq/L 136-145 (test code = 381) POTASSIUM (BEAKER) 4.0 meq/L 3.5-5.1 (test code = 379) CHLORIDE (BEAKER) 103 meq/L 98-107 (test code = 382) CO2 (BEAKER) (test 26 meq/L - code = 355) BLOOD UREA NITROGEN 40 mg/dL 7-21 H (BEAKER) (test code = 354) CREATININE (BEAKER) 4.45 mg/dL 0.57-1.25 H (test code = 358) GLUCOSE RANDOM 228 mg/dL 70-105 H (BEAKER) (test code = 652) CALCIUM (BEAKER) 8.3 mg/dL 8.4-10.2 L (test code = 697) EGFR (BEAKER) (test 13 mL/min/1.73 ESTIMA JASPER GFR IS code = 1092) sq m NOT ACCURATE CREATININE CLEARANCE IN PREDICTING GLOMERULAR FILTRATION RATE . ESTIMATED GFR I S NOT APPLICABLE FOR DIALYSIS PATIEN TS. Lighting Engineer ID - JIMBO [id number] 06:51:00 Test Item Value Reference Range Interpretation Comments PHOSPHORUS (BEAKER) (test code = 4.0 mg/dL 2.3-4.7 604) Lighting Engineer ID Kyle CHOI LCBC (HEMOGRAM ONLY)2020-05-26 05:53:00 Test Item Value [...] 0-0 (BEAKER) (test code = 413) POCT-GLUCOSE [id number] 18:24:00 Test Item Value Reference Range Interpretation Comments POC-GLUCOSE METER 140 mg/dL 70-110 H : TESTED A T [facility] 6720 (BEAKER) (test code = [facility], 1538) [address]: Lighting Engineer/Techni john ID = [id number] for AD AMS, LISSETTE POCT-GLUCOSE [id number] 11:53:00 Test Item Value Reference Range Interpretation Comments POC-GLUCOSE METER 226 mg/dL 70-110 H : Notified RN/MD: (ELIZABETHAKER) (test code = TESTED AT [facility] 6720 1538) [facility], [address]: Lighting Engineer/Techni john ID = [id number] for Si mmons, Veronica POCT-GLUCOSE [id number] 07:50:00 Test Item Value Reference Range Interpretation Comments POC-GLUCOSE METER 145 mg/dL 70-110 H : Notified RN/MD: (ALICIA) (test code = TESTED AT [place] [id number] 1538) [facility], [address]: Lighting Engineer/Techni john ID = [id number] for Si mmons, Veronica BLOOD GAS, [id number] 06:42:00 Test Item Value Reference Range Interpretation [...] code = 1819) 32.0 % BASIC METABOLIC [id number] 04:37:00 Test Item Value Reference Range Interpretation [...] 697) EGFR (BEAKER) (test 10 mL/min/1.73 ESTIMA JASPER GFR IS code = 1092) sq m NOT ACCURATE CREATININE CLEARANCE IN PREDICTING GLOMERULAR FILTRATION RATE . ESTIMATED GFR I S NOT APPLICABLE FOR DIALYSIS PATIEN TS. Lighting Engineer ID - [id number] 04:26:00 Test Item Value Reference Range Interpretation Comments PHOSPHORUS (BEAKER) (test code = 4.9 mg/dL 2.3-4.7 H 604) Lighting Engineer ID - EDASICBC (HEMOGRAM ONLY)2020-05-25 04:09:00 Test [...] = 413) RAD, CHEST, 1 VIEW, NON [id number] 01:00:00Reason for exam:->chest tubesShould this be performed at the bedside?->YesFINAL REPORT RAD, CHEST, 1 VIEW, NON DEPT INDICATION: chest tubes COMPARISON:Prior day's exam FINDINGS: Portable frontal view of the chest. IMPRESSION: Support Lines: Stable.Lungs and pleura: Unchanged hypoinflated lungs with bibasilar patchy airspace opacities and trace effusions. No pneumothorax.Heart and mediastinum: Stable contours.Additional findings: None. Signed: Marija Dimaseport Verified Date/Time: 05/25/2020 01:00:30 POCT-GLUCOSE [id number] 23:07:00 Test Item Value Reference Range Interpretation Comments POC-GLUCOSE METER 157 mg/dL 70-110 H : TESTED A T [facility] 6720 (BEAKER) (test code = [facility] [employer] [facility], 1538) [address]: Lighting Engineer/Techni john ID = [id number] for KELLEN CHAIREZ POCT-GLUCOSE [id number] 16:09:00 Test Item Value Reference Range Interpretation Comments POC-GLUCOSE METER 207 mg/dL 70-110 H : TESTED A T [facility] 6720 (BEAKER) (test code = [facility] [employer] [facility], 1538) [address]: Lighting Engineer/Techni john ID = [id number] for FA GOYAL, OLAKUNLE POCT-GLUCOSE [id number] 11:59:00 Test Item Value Reference Range Interpretation Comments POC-GLUCOSE METER 247 mg/dL 70-110 H : TESTED A T [facility] 6720 (BEAKER) (test code = [facility] [employer] [facility], 153) [address]: Lighting Engineer/Techni john ID = [id number] for FA GOYAL, OLAKUNLE POCT-GLUCOSE [id number] 06:58:00 Test Item Value Reference Range Interpretation Comments POC-GLUCOSE METER 149 mg/dL 70-110 H : TESTED A T [facility] 6720 (BEAKER) (test code = [facility] [place], 1538) [address]: Lighting Engineer/Techni john ID = [id number] for KELLEN CHAIREZ BASIC METABOLIC [id number] 06:42:00 Test Item Value Reference Range Interpretation [...] 697) EGFR (BEAKER) (test 10 mL/min/1.73 ESTIMA JASPER GFR IS code = 1092) sq m NOT ACCURATE CREATININE CLEARANCE IN PREDICTING GLOMERULAR FILTRATION RATE . ESTIMATED GFR I S NOT APPLICABLE FOR DIALYSIS PATIEN TS. Lighting Engineer ID - [id number] 06:29:00 Test Item Value Reference Range Interpretation Comments PHOSPHORUS (BEAKER) (test code = 4.8 mg/dL 2.3-4.7 H 604) Lighting Engineer ID - [id number] (HEMOGRAM ONLY)2020-05-24 05:34:00 Test [...] (BEAKER) (test code = 413) BLOOD GAS, [id number] 05:10:00 Test Item Value Reference Range Interpretation [...] 40.0 % RAD, CHEST, 1 VIEW, NON [id number] 03:52:00Reason for exam:->s/p: CABGShould this be performed at the bedside?->YesFINAL REPORT RAD, CHEST, 1 VIEW, NON DEPT INDICATION: s/p: CABG COMPARISON: Prior day's exam FINDINGS: Portable frontal view of the chest. IMPRESSION: Support Lines: The Buckner-Tita catheter has been removed with a right IJ sheath remaining. Otherwise, stable.Lungs and pleura: Unchanged hypoinflated lungs without new consolidation or effusion. No pneumothorax.Heart and mediastinum: Stable contours.Additional findings: None. Signed: Marija Dimas [facility] Verified Date/Time: 05/24/2020 03:52:46 POCT-GLUCOSE [id number] 02:23:00 Test Item Value Reference Range Interpretation Comments POC-GLUCOSE METER 109 mg/dL 70-110 : TESTED A T [facility] 6720 (BEAKER) (test code = [facility] [place], 1538) [address]: Lighting Engineer/Techni john ID = [id number] for KELLEN CHAIREZ BASIC METABOLIC [id number] 00:21:00 Test Item Value Reference Range Interpretation [...] 697) EGFR (BEAKER) (test 11 mL/min/1.73 ESTIMA JASPER GFR IS code = 1092) sq m NOT ACCURATE CREATININE CLEARANCE IN PREDICTING GLOMERULAR FILTRATION RATE . ESTIMATED GFR I S NOT APPLICABLE FOR DIALYSIS PATIEN TS. Lighting Engineer ID - DARCIE [id number] 00:18:00 Test Item Value Reference Range Interpretation Comments MAGNESIUM (BEAKER) (test code = 2.2 mg/dL 1.6-2.6 627) Lighting Engineer ID - DARCIE WCBC (HEMOGRAM ONLY)2020-05-24 00:00:00 [...] 0-0 (BEAKER) (test code = 413) POCT-GLUCOSE [id number] 23:59:00 Test Item Value Reference Range Interpretation Comments POC-GLUCOSE METER 133 mg/dL 70-110 H : TESTED A T [facility] 6720 (BEAKER) (test code [facility], = 1538) [address]: Lighting Engineer/Techni john ID = [id number] for DONALDO DERO, MERNA POCT-GLUCOSE [id number] 23:03:00 Test Item Value Reference Range Interpretation Comments POC-GLUCOSE METER 138 mg/dL 70-110 H : TESTED A T [facility] 6720 (BEAKER) (test code [facility], = 1538) [address]: Lighting Engineer/Techni john ID = [id number] for DONALDO DERO, MERNA POCT-GLUCOSE [id number] 21:20:00 Test Item Value Reference Range Interpretation Comments POC-GLUCOSE METER 142 mg/dL 70-110 H : TESTED A T [facility] 6720 (BEAKER) (test code [facility], = 1538) [address]: Lighting Engineer/Techni john ID = [id number] for DONALDO DERO, MERNA POCT-GLUCOSE [id number] 20:25:00 Test Item Value Reference Range Interpretation Comments POC-GLUCOSE METER 145 mg/dL 70-110 H : TESTED A T [facility] 6720 (BEAKER) (test code [facility], = 1538) [address]: Lighting Engineer/Techni john ID = [id number] for MOOSE FELDERRIA POCT-GLUCOSE [id number] 18:38:00 Test Item Value Reference Range Interpretation Comments POC-GLUCOSE METER 166 mg/dL 70-110 H : TESTED A T [facility] 6720 (BEAKER) (test code = [facility], 1538) [address]: Lighting Engineer/Techni john ID = [id number] for IVELISSE MAHAJAN POCT-GLUCOSE [id number] 17:52:00 Test Item Value Reference Range Interpretation Comments POC-GLUCOSE METER 132 mg/dL 70-110 H : TESTED A T [facility] 6720 (BEAKER) (test code = [facility], 1538) [address]: Lighting Engineer/Techni john ID = [id number] for Be rki, Meti POCT-GLUCOSE [id number] 16:52:00 Test Item Value Reference Range Interpretation Comments POC-GLUCOSE METER 144 mg/dL 70-110 H : TESTED A T [facility] 6720 (BEAKER) (test code = [facility], 1538) [address]: Lighting Engineer/Techni john ID = [id number] for Be rki, Meti POCT-GLUCOSE [id number] 15:09:00 Test Item Value Reference Range Interpretation Comments POC-GLUCOSE METER 157 mg/dL 70-110 H : TESTED A T [facility] 6720 (BEAKER) (test code = [facility], 1538) [address]: Lighting Engineer/Techni john ID = [id number] for Be rki, Meti POCT-GLUCOSE [id number] 15:06:00 Test Item Value Reference Range Interpretation Comments POC-GLUCOSE METER 154 mg/dL 70-110 H : TESTED A T [facility] 6720 (BEAKER) (test code = [facility], 1538) [address]: Lighting Engineer/Techni john ID = [id number] for Be rki, Meti POCT-GLUCOSE [id number] 13:38:00 Test Item Value Reference Range Interpretation Comments POC-GLUCOSE METER 162 mg/dL 70-110 H : TESTED A T [facility] 6720 (BEAKER) (test code = [facility], 1538) [address]: Lighting Engineer/Techni john ID = [id number] for Be rki, Meti POCT-GLUCOSE [id number] 12:50:00 Test Item Value Reference Range Interpretation Comments POC-GLUCOSE METER 135 mg/dL 70-110 H : TESTED A T [facility] 6720 (BEAKER) (test code = [facility], 1538) [address]: Lighting Engineer/Techni john ID = [id number] for Be rki, Meti POCT-GLUCOSE [id number] 12:50:00 Test Item Value Reference Range Interpretation Comments POC-GLUCOSE METER 126 mg/dL 70-110 H : TESTED A T [facility] 6720 (BEAKER) (test code = [facility], [facility]8) [address]: Lighting Engineer/Techni john ID = [id number] for Be rki, Meti POCT-GLUCOSE [id number] 12:00:00 Test Item Value Reference Range Interpretation Comments POC-GLUCOSE METER 151 mg/dL 70-110 H : TESTED A T [facility] 6720 (BEAKER) (test code = [facility], [facility]8) [address]: Lighting Engineer/Techni john ID = [id number] for RODRIGUEZ LESLIEAN, IVELISSE POCT-GLUCOSE [id number] 10:31:00 Test Item Value Reference Range Interpretation Comments POC-GLUCOSE METER 123 mg/dL 70-110 H : TESTED A T [facility] 6720 (BEAKER) (test code = [facility], [facility]8) [address]: Lighting Engineer/Techni john ID = [id number] for Be rki, Meti POCT-GLUCOSE [id number] 10:31:00 Test Item Value Reference Range Interpretation Comments POC-GLUCOSE METER 97 mg/dL 70-110 : TESTED A T [facility] 6720 (BEAKER) (test code = [facility], 1538) [address]: Lighting Engineer/Techni john ID = [id number] for Francisco Javier i, Meti POCT-GLUCOSE [id number] 10:31:00 Test Item Value Reference Range Interpretation Comments POC-GLUCOSE METER 123 mg/dL 70-110 H : TESTED A T [facility] 6720 (BEAKER) (test code = [facility], 1538) [address]: Lighting Engineer/Techni john ID = [id number] for US ERO, KASANDRA POCT-GLUCOSE [id number] 09:43:00 Test Item Value Reference Range Interpretation Comments POC-GLUCOSE METER 142 mg/dL 70-110 H : TESTED A T [facility] 6720 (BEAKER) (test code = [facility], 1538) [address]: Lighting Engineer/Techni john ID = [id number] for US ERO, KASANDRA POCT-GLUCOSE [id number] 09:43:00 Test Item Value Reference Range Interpretation Comments POC-GLUCOSE METER 160 mg/dL 70-110 H : TESTED A T [facility] 6720 (BEAKER) (test code = [facility], [facility]8) [address]: Lighting Engineer/Techni john ID = [id number] for US ERO, KASANDRA POCT-GLUCOSE [id number] 06:57:00 Test Item Value Reference Range Interpretation Comments POC-GLUCOSE METER 100 mg/dL 70-110 : TESTED A T [facility] 6720 (BEAKER) (test code = [facility], [facility]) [address]: Lighting Engineer/Techni john ID = [id number] for US ERO, KASANDRA [id number] 06:26:00 Test Item Value Reference Range Interpretation Comments ACTIVATED CLOTTING TIME 114 sec : 74 -137 seconds, (BEAKER) (test code = Baseli ne: TESTED AT 441) [address], [facility] 30: Lighting Engineer/Techni john ID = [id number] for MARIJA URBAN [id number] 06:26:00 Test Item Value Reference Range Interpretation Comments ACTIVATED CLOTTING TIME 428 sec : 74 -137 seconds, (BEAKER) (test code = Baseli ne: TESTED AT 441) [address], [facility] 30: Lighting Engineer/Techni john ID = [id number] for BE AVERSMARIJA [id number] 06:26:00 Test Item Value Reference Range Interpretation Comments ACTIVATED CLOTTING TIME 439 sec : 74 -137 seconds, (BEAKER) (test code = Baseli ne: TESTED AT 441) [address], [facility] 30: Lighting Engineer/Techni john ID = [id number] for MARIJA URBAN [id number] 06:26:00 Test Item Value Reference Range Interpretation Comments ACTIVATED CLOTTING TIME 422 sec : 74 -137 seconds, (BEAKER) (test code = Baseli ne: TESTED AT 441) [facility] 6720 [facility], 770 30: Lighting Engineer/Techni john ID = [id number] for MARIJA URBAN [id number] 06:26:00 Test Item Value Reference Range Interpretation Comments ACTIVATED CLOTTING TIME 472 sec : 74 -137 seconds, (BEAKER) (test code = Baseli ne: TESTED AT 441) [facility] 6720 [facility], 770 30: Lighting Engineer/Techni john ID = [id number] for MARIJA URBAN BASIC METABOLIC [id number] 06:14:00 Test Item Value Reference Range Interpretation [...] 697) EGFR (BEAKER) (test 11 mL/min/1.73 ESTIMA JASPER GFR IS code = 1092) sq m NOT ACCURATE CREATININE CLEARANCE IN PREDICTING GLOMERULAR FILTRATION RATE . ESTIMATED GFR I S NOT APPLICABLE FOR DIALYSIS PATIEN TS. Lighting Engineer ID - [id number] 05:37:00 Test Item Value Reference Range Interpretation Comments PHOSPHORUS (BEAKER) (test code = 4.0 mg/dL 2.3-4.7 604) Lighting Engineer ID - [id number] 05:37:00 Test Item Value Reference Range Interpretation Comments MAGNESIUM (BEAKER) (test code = 2.0 mg/dL 1.6-2.6 627) Lighting Engineer ID - EDASICBC (HEMOGRAM ONLY)2020-05-23 04:49:00 Test [...] (BEAKER) (test code = 413) LACTIC ACID, [id number] 04:45:00 Test Item Value Reference Range Interpretation Comments LACTATE BLOOD ARTERIAL (2) 2.2 mmol/L 0.5-2.2 (BEAKER) (test code = 2874) Lighting Engineer ID - EDASIRAD, CHEST, 1 VIEW, NON [id number] 04:06:00Reason for exam:->chest tubesShould this be performed [...] Stable surgical changes.Additional findings: None. Signed: Karon Kirkland Verified Date/Time: 05/23/2020 04:06:14 BLOOD GAS, [id number] 03:55:00 Test Item Value Reference Range Interpretation [...] (BEAKER) (test code = 1819) 40.0 % OXYGEN SATURATION, [id number] 03:54:00 Test Item Value Reference Range Interpretation Comments O2 SATURATION (MEASURED) (BEAKER) 79.8 % (test code = 1455) POCT-GLUCOSE [id number] 02:46:00 Test Item Value Reference Range Interpretation Comments POC-GLUCOSE METER 195 mg/dL 70-110 H : TESTED A T [facility] 6720 (BEAKER) (test code = KIMMY Chaney [facility], 1538) [address]: Lighting Engineer/Techni john ID = [id number] for US BARNARDOKASANDRA LACTIC ACID, [id number] 01:19:00 Test Item Value Reference Range Interpretation Comments LACTATE BLOOD ARTERIAL (2) 3.1 mmol/L 0.5-2.2 H (BEAKER) (test code = 2874) Lighting Engineer ID - PIAYA LPOCT-GLUCOSE [id number] 00:52:00 Test Item Value Reference Range Interpretation Comments POC-GLUCOSE METER 193 mg/dL 70-110 H : TESTED A T [facility] 6720 (BEAKER) (test code = KIMMY Chaney [place], 1538) [address]: Lighting Engineer/Techni john ID = [id number] for JULIANNE AMARAL POCT-GLUCOSE [id number] 00:52:00 Test Item Value Reference Range Interpretation Comments POC-GLUCOSE METER 223 mg/dL 70-110 H : TESTED A T [facility] 6720 (BEAKER) (test code = KIMMY Chaney [place], 1538) [address]: Lighting Engineer/Techni john ID = [id number] for AFSHIN NUNN GLUCOSE-STAT [id number] 00:45:00 Test Item Value Reference Range Interpretation Comments GLUCOSE RANDOM (BEAKER) (test code 198 mg/dL 70-110 H = 652) BLOOD GAS, [id number] 00:45:00 Test Item Value Reference Range Interpretation [...] (BEAKER) (test code = 1819) 40.0 % [id number] 22:34:00 Test Item Value Reference Range Interpretation Comments PHOSPHORUS (BEAKER) (test code = 1.5 mg/dL 2.3-4.7 LL 604) Lighting Engineer ID - [id number] 22:31:00 Test Item Value Reference Range Interpretation Comments MAGNESIUM (BEAKER) (test code = 2.1 mg/dL 1.6-2.6 627) Lighting Engineer ID - BSBASIC METABOLIC [id number] 22:31:00 Test Item Value Reference Range Interpretation [...] 697) EGFR (BEAKER) (test 11 mL/min/1.73 ESTIMA JASPER GFR IS code = 1092) sq m NOT ACCURATE CREATININE CLEARANCE IN PREDICTING GLOMERULAR FILTRATION RATE . ESTIMATED GFR I S NOT APPLICABLE FOR DIALYSIS PATIEN TS. Lighting Engineer ID - BSLACTIC ACID, [id number] 22:29:00 Test Item Value Reference Range Interpretation Comments LACTATE BLOOD ARTERIAL (2) 7.0 mmol/L 0.5-2.2 HH (BEAKER) (test code = 2874) Lighting Engineer ID - BSPOCT-GLUCOSE [id number] 22:24:00 Test Item Value Reference Range Interpretation Comments POC-GLUCOSE METER 192 mg/dL 70-110 H : TESTED A T [facility] 6720 (BEAKER) (test code = KIMMY Chaney [facility], 1538) [address]: Lighting Engineer/Techni john ID = [id number] for CA STARDO, JUNDELL CALCIUM, [id number] 22:13:00 Test Item Value Reference Range Interpretation Comments CALCIUM IONIZED (BEAKER) (test 0.99 mmol/L 1.12-1.27 L code = 698) PH, BLOOD (BEAKER) (test code = 7.44 1810) BLOOD GAS, [id number] 22:13:00 Test Item Value Reference Range Interpretation [...] 21-29 = 388) BASE EXCESS ARTERIAL (BEAKER) -1.6 mmol/L -2.0-3.0 (test code = 387) PATIENT TEMPERATURE (BEAKER) 38.2 C (test code = 1818) FIO2 (BEAKER) (test code = 1819) 40.0 % POCT-GLUCOSE [id number] 21:00:00 Test Item Value Reference Range Interpretation Comments POC-GLUCOSE METER 239 mg/dL 70-110 H : TESTED A T [facility] 6720 (BEAKER) (test code = [facility], 1538) [address]: Lighting Engineer/Techni john ID = [id number] for CA HARRY, JUNDELL POCT-GLUCOSE [id number] 20:59:00 Test Item Value Reference Range Interpretation Comments POC-GLUCOSE METER 279 mg/dL 70-110 H : TESTED A T [facility] 6720 (BEAKER) (test code = [facility], 1538) 18[address]: Lighting Engineer/Techni john ID = [id number] for OS SHALINI PAULSONINE POCT-GLUCOSE [id number] 20:58:00 Test Item Value Reference Range Interpretation Comments POC-GLUCOSE METER 276 mg/dL 70-110 H : TESTED A T [facility] 6720 (BEAKER) (test code = [facility], 1538) [address]: Lighting Engineer/Techni john ID = [id number] for CA STARDO, JUNDELL LACTIC ACID, [id number] 19:58:00 Test Item Value Reference Range Interpretation Comments LACTATE BLOOD ARTERIAL (2) 11.0 mmol/L 0.5-2.2 HH (BEAKER) (test code = 2874) Lighting Engineer ID - BSBASIC METABOLIC [id number] 19:55:00 Test Item Value Reference Range Interpretation [...] 697) EGFR (BEAKER) (test 11 mL/min/1.73 ESTIMA JASPER GFR IS code = 1092) sq m NOT ACCURATE CREATININE CLEARANCE IN PREDICTING GLOMERULAR FILTRATION RATE . ESTIMATED GFR I S NOT APPLICABLE FOR DIALYSIS PATIEN TS. Lighting Engineer ID - BSCALCIUM, [id number] 19:46:00 Test Item Value Reference Range Interpretation Comments CALCIUM IONIZED (BEAKER) (test 1.04 mmol/L 1.12-1.27 L code = 698) PH, BLOOD (BEAKER) (test code = 7.34 1810) [id number] 19:45:00 Test Item Value Reference Range Interpretation Comments POTASSIUM (BEAKER) (test code = 3.5 meq/L 3.5-5.1 379) Lighting Engineer ID - [id number] 19:45:00 Test Item Value Reference Range Interpretation Comments GLUCOSE RANDOM (BEAKER) (test code 295 mg/dL 70-105 H = 652) Lighting Engineer ID - BSBLOOD GAS, [id number] 19:41:00 Test Item Value Reference Range Interpretation [...] (BEAKER) (test code = 1819) 40.0 % [id number] 16:59:00 Test Item Value Reference Range Interpretation Comments GLUCOSE RANDOM (BEAKER) (test code 286 mg/dL 70-105 H = 652) [id number] 16:59:00 Test Item Value Reference Range Interpretation Comments POTASSIUM (BEAKER) (test code = 3.6 meq/L 3.5-5.1 379) BASIC METABOLIC [id number] 16:59:00 Test Item Value Reference Range Interpretation [...] 697) EGFR (BEAKER) (test 11 mL/min/1.73 ESTIMA JASPER GFR IS code = 1092) sq m NOT ACCURATE CREATININE CLEARANCE IN PREDICTING GLOMERULAR FILTRATION RATE . ESTIMATED GFR I S NOT APPLICABLE FOR DIALYSIS PATIEN TS. Lighting Engineer ID - BSLACTIC ACID, [id number] 16:56:00 Test Item Value Reference Range Interpretation Comments LACTATE BLOOD ARTERIAL (2) 7.7 mmol/L 0.5-2.2 HH (BEAKER) (test code = 2874) Lighting Engineer ID - BSOXYGEN SATURATION, [id number] 16:44:00 Test Item Value Reference Range Interpretation Comments O2 SATURATION (MEASURED) (BEAKER) 88.3 % (test code = 1455) BLOOD GAS, [id number] 16:41:00 Test Item Value Reference Range Interpretation [...] (BEAKER) (test code = 413) BLOOD GAS, [id number] 14:01:00 Test Item Value Reference Range Interpretation [...] code = 1819) 50.0 % OXYGEN SATURATION, [id number] 14:00:00 Test Item Value Reference Range Interpretation Comments O2 SATURATION (MEASURED) (BEAKER) 82.8 % (test code = 1455) RAD, CHEST, 1 VIEW, NON [id number] 13:55:00Reason for exam:->post opShould this be performed at the bedside?->YesFINAL REPORT RAD, CHEST, 1 VIEW, NON DEPT INDICATION: 05/19/2020 COMPARISON: May 19, 2020 FINDINGS: Portable frontal view of the chest. IMPRESSION: Support Lines: Buckner-Tita tip overlies the pulmonary outflow tract. NG tube descends below the diaphragm. Bilateral chest tubes. Lungs and pleura: Poor inspiration with basilar atelectasis and mild diffuse interstitial opacitiesNo pneumothorax.Heart and mediastinum: Stable contours. Stable surgical changes.Additional findings:None. Signed: Rachna Waller MDReport Verified Date/Time: 05/22/2020 13:55:44 Reading Location: [facility] Radiology Reading Room Electronically signed by: RACHNA WALLER MD on 020 01:55 [id number] 13:43:00 Test Item Value Reference Range Interpretation [...] exclusion of thrombosis is within 95-100% range. COMPREHENSIVE METABOLIC [id number] 13:42:00 Test Item Value Reference Range Interpretation [...] 347) EGFR (BEAKER) (test 11 mL/min/1.73 ESTIMA JASPER GFR IS code = 1092) sq m NOT ACCURATE CREATININE CLEARANCE IN PREDICTING GLOMERULAR FILTRATION RATE . ESTIMATED GFR I S NOT APPLICABLE FOR DIALYSIS PATIEN TS. Lighting Engineer ID - [id number] 13:40:00 Test Item Value Reference Range Interpretation Comments PHOSPHORUS (BEAKER) (test code = 4.0 mg/dL 2.3-4.7 604) Lighting Engineer ID - [id number] 13:40:00 Test Item Value Reference Range Interpretation Comments MAGNESIUM (BEAKER) (test code = 2.2 mg/dL 1.6-2.6 627) Lighting Engineer ID - [id number] 13:40:00 Test Item Value Reference Range Interpretation Comments FIBRINOGEN LEVEL (BEAKER) (test 305 mg/dl 225-434 code = 658) [id number] 13:40:00 Test Item Value Reference Range Interpretation [...] for patients wiht mechanical heart valves.LACTIC ACID, [id number] 13:36:00 Test Item Value Reference Range Interpretation Comments LACTATE BLOOD ARTERIAL (2) 3.9 mmol/L 0.5-2.2 H (BEAKER) (test code = 2874) Lighting Engineer ID - NTPBLOOD GAS, [id number] 13:25:00 Test Item Value Reference Range Interpretation [...] code = 1819) 50.0 % OXYGEN SATURATION, [id number] 13:23:00 Test Item Value Reference Range Interpretation [...] WBC 0-0 (BEAKER) (test code = 413) SODIUM NA-STAT [id number] 11:46:00 Test Item Value Reference Range Interpretation Comments SODIUM (BEAKER) (test code = 381) 136 meq/L 136-145 POTASSIUM-STAT [id number] 11:46:00 Test Item Value Reference Range Interpretation Comments POTASSIUM (BEAKER) (test code = 4.1 meq/L 3.6-5.5 379) BLOOD GAS, [id number] 11:46:00 Test Item Value Reference Range Interpretation [...] (test code = 1819) 100.0 % GLUCOSE-STAT [id number] 11:46:00 Test Item Value Reference Range Interpretation Comments GLUCOSE RANDOM (BEAKER) (test code 197 mg/dL 70-110 H = 652) HGB/HCT (H&H) - STAT [id number] 11:46:00 Test Item Value Reference Range Interpretation Comments HEMOGLOBIN (BEAKER) (test code = 10.9 g/dL 13.0-16.8 L 410) HEMATOCRIT (BEAKER) (test code = 32.0 % 40.0-50.0 L 411) CALCIUM, [id number] 11:44:00 Test Item Value Reference Range Interpretation Comments CALCIUM IONIZED (BEAKER) (test 1.05 mmol/L 1.12-1.27 L code = 698) PH, BLOOD (BEAKER) (test code = 7.39 1810) POTASSIUM-STAT [id number] 10:23:00 Test Item Value Reference Range Interpretation Comments POTASSIUM (BEAKER) (test code = 4.8 meq/L 3.6-5.5 379) BLOOD GAS, [id number] 10:23:00 Test Item Value Reference Range Interpretation [...] code = 1819) 70.0 % SODIUM NA-STAT [id number] 10:23:00 Test Item Value Reference Range Interpretation Comments SODIUM (BEAKER) (test code = 381) 133 meq/L 136-145 L GLUCOSE-STAT [id number] 10:23:00 Test Item Value Reference Range Interpretation Comments GLUCOSE RANDOM (BEAKER) (test code 186 mg/dL 70-110 H = 652) HGB/HCT (H&H) - STAT [id number] 10:23:00 Test Item Value Reference Range Interpretation Comments HEMOGLOBIN (BEAKER) (test code = 10.1 g/dL 13.0-16.8 L 410) HEMATOCRIT (BEAKER) (test code = 30.0 % 40.0-50.0 L 411) BLOOD GAS, [id number] 09:59:00 Test Item Value Reference Range Interpretation [...] code = 1819) 60.0 % BLOOD GAS, [id number] 09:59:00 Test Item Value Reference Range Interpretation [...] (test code = 1819) 60.0 % GLUCOSE-STAT [id number] 09:59:00 Test Item Value Reference Range Interpretation Comments GLUCOSE RANDOM (BEAKER) (test code 200 mg/dL 70-110 H = 652) HGB/HCT (H&H) - STAT [id number] 09:59:00 Test Item Value Reference Range Interpretation Comments HEMOGLOBIN (BEAKER) (test code = 9.9 g/dL 13.0-16.8 L 410) HEMATOCRIT (BEAKER) (test code = 29.0 % 40.0-50.0 L 411) SODIUM NA-STAT [id number] 09:55:00 Test Item Value Reference Range Interpretation Comments SODIUM (BEAKER) (test code = 381) 136 meq/L 136-145 POTASSIUM-STAT [id number] 09:55:00 Test Item Value Reference Range Interpretation Comments POTASSIUM (BEAKER) (test code = 5.0 meq/L 3.6-5.5 379) SODIUM NA-STAT [id number] 08:22:00 Test Item Value Reference Range Interpretation Comments SODIUM (BEAKER) (test code = 381) 137 meq/L 136-145 POTASSIUM-STAT [id number] 08:22:00 Test Item Value Reference Range Interpretation Comments POTASSIUM (BEAKER) (test code = 3.9 meq/L 3.6-5.5 379) CALCIUM, [id number] 08:22:00 Test Item Value Reference Range Interpretation Comments CALCIUM IONIZED (BEAKER) (test 1.03 mmol/L 1.12-1.27 L code = 698) PH, BLOOD (BEAKER) (test code = 7.43 1810) BLOOD GAS, [id number] 08:22:00 Test Item Value Reference Range Interpretation [...] (test code = 1819) 100.0 % GLUCOSE-STAT [id number] 08:22:00 Test Item Value Reference Range Interpretation Comments GLUCOSE RANDOM (BEAKER) (test code 126 mg/dL 70-110 H = 652) HGB/HCT (H&H) - STAT [id number] 08:22:00 Test Item Value Reference Range Interpretation Comments HEMOGLOBIN (BEAKER) (test code = 12.6 g/dL 13.0-16.8 L 410) HEMATOCRIT (BEAKER) (test code = 37.0 % 40.0-50.0 L 411) [id number] 04:58:00 Test Item Value Reference Range Interpretation Comments MAGNESIUM (BEAKER) (test code = 1.7 mg/dL 1.6-2.6 627) Lighting Engineer ID - DARCIE WBASIC METABOLIC [id number] 04:45:00 Test Item Value Reference Range Interpretation [...] 697) EGFR (BEAKER) (test 11 mL/min/1.73 ESTIMA JASPER GFR IS code = 1092) sq m NOT ACCURATE CREATININE CLEARANCE IN PREDICTING GLOMERULAR FILTRATION RATE . ESTIMATED GFR I S NOT APPLICABLE FOR DIALYSIS PATIEN TS. Lighting Engineer ID - DARCIE [id number] 04:44:00 Test Item Value Reference Range Interpretation Comments PHOSPHORUS (BEAKER) (test code = 3.3 mg/dL 2.3-4.7 604) Lighting Engineer ID - DARCIE WCBC W/PLT COUNT & AUTO [id number] 04:20:00 Test Item Value Reference Range Interpretation [...] PERCENT (BEAKER) (test code = 2801) POCT-GLUCOSE [id number] 22:40:00 Test Item Value Reference Range Interpretation Comments POC-GLUCOSE METER 117 mg/dL 70-110 H : Notified RN/MD: ([facility]) (test code = TESTED AT [place] [address] 1538) [facility], [address]: Lighting Engineer/Techni john ID = [id number] for Stu Quintana POCT-GLUCOSE [id number] 17:53:00 Test Item Value Reference Range Interpretation Comments POC-GLUCOSE METER 151 mg/dL 70-110 H : TESTED A T [facility] 6720 ([facility]) (test code = [facility], 153) [address]: Lighting Engineer/Techni john ID = [id number] for AVA VERA HEMOGLOBIN [id number] 13:35:00 Test Item Value Reference Range Interpretation Comments HEMOGLOBIN A1C ([facility]) (test code = 8.0 % 4.3-6.1 H 368) POCT-GLUCOSE [id number] 12:43:00 Test Item Value Reference Range Interpretation Comments POC-GLUCOSE METER 145 mg/dL 70-110 H : TESTED A T [facility] 6720 ([facility]) (test code = [facility], 153) [address]: Lighting Engineer/Techni john ID = [id number] for JODY AVA BEL PROTHROMBIN TIME/[id number] 11:47:00 Test Item Value Reference Range Interpretation [...] INR is2.5-3.5 for patients wiht mechanical heart valves.[id number] 11:47:00 Test Item Value Reference Range Interpretation Comments PARTIAL THROMBOPLASTIN TIME 28.5 seconds 22.5-36.0 ([facility]) (test code = 760) POCT-GLUCOSE [id number] 11:43:00 Test Item Value Reference Range Interpretation Comments POC-GLUCOSE METER 156 mg/dL 70-110 H : TESTED A T [facility] 6720 ([facility]) (test code = [place], 1538) [address]: Lighting Engineer/Techni john ID = [id number] for Darcie Lacy LIPID [id number] 11:35:00 Test Item Value Reference Range Interpretation Comments TRIGLYCERIDES ([facility]) (test code = 187 mg/dL 540) CHOLESTEROL (GERSAKER) (test code = 127 mg/dL 631) HDL CHOLESTEROL (GERSAKER) (test code 25 mg/dL = 976) LDL CHOLESTEROL CALCULATED (GERSAKER) 65 mg/dL (test code = 633) Triglyceride Reference Range: Low Risk <150 Borderline 150-199 High Risk 200-499 Very High Risk >=500Cholesterol Reference Range: Low Risk <200 Borderline 200-239 High Risk >240HDL Cholesterol Reference Range: Low Risk >=60 High Risk <40LDL Cholesterol Reference Range: Optimal <100 Near Optimal 100-129 Borderline 130-159 High 160-189 Very High >=190 Lighting Engineer ID - KIMBERLY MPLATELET AGGREGATION: FUNCTION [id number] 10:24:00 Test Item Value Reference Range Interpretation Comments [id number] Ed Simpson MD ([facility]) (test code = (electronic 5843) signature) PLATELET COUNT AGG 165 K/CU MM 150-450 (BEAKER) (test code = 1102) ADP (GERSAKER) (test code 74 % 62-100 = 2394) PLATELET RICH 204 k/cu mm 200-300 PLASMA(GERSAKER) (test code = 2130) PLATELET FUNCTION SCREEN Normal aggregation INTERPRETATION (BEAKER) results with ADP. No (test code = 4655) evidence of platelet dysfunction or P2Y12 inhibitor effect. Platelet Function Screen results may be falsely low with platelet counts<75,000/cu mm.Lighting Engineer ID- [id number]-GLUCOSE [id number] 07:19:00 Test Item Value Reference Range Interpretation Comments POC-GLUCOSE METER 117 mg/dL 70-110 H : TESTED A T [facility] 6720 (BEAKER) (test code = [place], 1538) [address]: Lighting Engineer/Techni john ID = [id number] for AVA VERA BASIC METABOLIC [id number] 05:43:00 Test Item Value Reference Range Interpretation [...] S NOT APPLICABLE FOR DIALYSIS PATIEN TS. Lighting Engineer ID - KIMBERLY [id number] 05:29:00 Test Item Value Reference Range Interpretation Comments PHOSPHORUS (BEAKER) (test code = 4.3 mg/dL 2.3-4.7 604) Lighting Engineer ID - KIMBERLY [id number] 05:29:00 Test Item Value Reference Range Interpretation Comments MAGNESIUM (BEAKER) (test code = 1.9 mg/dL 1.6-2.6 627) Lighting Engineer ID - KIMBERLY MCBC W/PLT COUNT & AUTO [id number] 04:48:00 Test Item Value Reference Range Interpretation [...] PERCENT (BEAKER) (test code = 2801) POCT-GLUCOSE [id number] 21:49:00 Test Item Value Reference Range Interpretation Comments POC-GLUCOSE METER 124 mg/dL 70-110 H : TESTED A T [facility] 6720 ([facility]) (test [facility] = [facility], 1538) [address]: Lighting Engineer/Techni john ID = [id number] for GREGORY JOHANSEN POCT-GLUCOSE [id number] 17:08:00 Test Item Value Reference Range Interpretation Comments POC-GLUCOSE METER 176 mg/dL 70-110 H : Notified RN/MD: ([facility]) (test code = TESTED AT [place] [address]) [facility], [address]: Lighting Engineer/Techni john ID = [id number] for CAYLA LOUIE POCT-GLUCOSE [id number] 12:21:00 Test Item Value Reference Range Interpretation Comments POC-GLUCOSE METER 207 mg/dL 70-110 H : Notified RN/MD: ([facility]) (test code = TESTED AT [place] [address] 153) [facility], [address]: Lighting Engineer/Techni john ID = [id number] for CAYLA LOUIE POCT-GLUCOSE [id number] 07:30:00 Test Item Value Reference Range Interpretation Comments POC-GLUCOSE METER 139 mg/dL 70-110 H : Notified RN/MD: ([facility]) (test code = TESTED AT [place] [address] 153) [facility], [address]: Lighting Engineer/Techni john ID = [id number] for CAYLA LOUIE BASIC METABOLIC [id number] 06:12:00 Test Item Value Reference Range Interpretation [...] 697) EGFR (BEAKER) (test 10 mL/min/1.73 ESTIMA JASPER GFR IS code = 1092) sq m NOT ACCURATE CREATININE CLEARANCE IN PREDICTING GLOMERULAR FILTRATION RATE . ESTIMATED GFR I S NOT APPLICABLE FOR DIALYSIS PATIEN TS. Lighting Engineer ID - [id number] 05:55:00 Test Item Value Reference Range Interpretation Comments PHOSPHORUS (BEAKER) (test code = 4.3 mg/dL 2.3-4.7 604) Lighting Engineer ID - [id number] 05:55:00 Test Item Value Reference Range Interpretation Comments MAGNESIUM (BEAKER) (test code = 2.0 mg/dL 1.6-2.6 627) Lighting Engineer ID - EDASITROPONIN [id number] 05:53:00 Test Item Value Reference Range Interpretation [...] failure, acidosis, acute neurological disease, and persistent tachyarrhythmia.Lighting Engineer ID - EDASICBC W/PLT COUNT & AUTO [id number] 05:27:00 Test Item Value Reference Range Interpretation [...] PERCENT (BEAKER) (test code = 2801) TROPONIN [id number] 00:39:00 Test Item Value Reference Range Interpretation [...] failure, acidosis, acute neurological disease, and persistent tachyarrhythmia.Lighting Engineer ID - DBPOCT-GLUCOSE METER 2020-05-19 21:44:00 Test Item Value Reference Range Interpretation Comments POC-GLUCOSE METER 209 mg/dL 70-110 H : TESTED A T [facility] 6720 (BEAKER) (test code = [facility], 1538) [address]: Lighting Engineer/Techni john ID = [id number] for PH ILIP GREGORY POCT-GLUCOSE [id number] 20:06:00 Test Item Value Reference Range Interpretation Comments POC-GLUCOSE METER 134 mg/dL 70-110 H : TESTED A T [facility] 6720 (BEAKER) (test code = [facility], 1538) [address]: Lighting Engineer/Techni john ID = [id number] for AP URA, ERIC PLATELET AGGREGATION: FUNCTION [id number] 15:53:00 Test Item Value Reference Range Interpretation Comments [id number] Rayne Stratton MD (BEAKER) (test code = (electronic 2622) signature) PLATELET COUNT AGG 240 K/CU MM [...] may be falsely low with platelet counts<75,000/cu mm.Lighting Engineer ID- [id number] AGGREGATION: FUNCTION SCREEN 2020-05-19 15:47:00 Test Item Value Reference Range Interpretation Comments [id number] Rayne Stratton MD (BEAKER) (test code = (electronic signature) 2622) PLATELET COUNT AGG 171 K/CU MM 150-450 (BEAKER) (test code = 2656) ADP (BEAKER) (test code 24 % 62-100 L = 4654) PLATELET RICH 213 k/cu mm 200-300 PLASMA(BEAKER) (test code = 2134) PLATELET FUNCTION Pattern of SCREEN INTERPRETATION disaggregation present (ALICIA) (test code = with ADP which may be 4655) characteristic of P2Y12 inhibitor effect. Correlation with medication history is required. Platelet Function Screen results may be falsely low with platelet counts<75,000/cu mm.Lighting Engineer ID- [id number] [id number] 14:19:00 Test Item Value Reference Range Interpretation Comments TROPONIN I ([facility]) (test code = 0.03 ng/mL 0.00-0.03 397) [...] failure, acidosis, acute neurological disease, and persistent tachyarrhythmia.Lighting Engineer ID - KIMBERLY MRAD, CHEST, 1 VIEW, NON [id number] 13:26:00Reason for exam:->chest painShould this be performed at the bedside?->YesFINAL REPORT History: Chest pain Comparison: 05/18/2020 Findings: The lungs are clear. No pleural effusions or pneumothorax. The heart shadow is normal in size. The thoracic aorta is mildly tortuous. Degenerative changes are present in the spine. Impression: No evidence of acutecardiopulmonary disease. Signed: Hunter Monroe Verified Date/Time: 05/19/2020 13:26:01 Reading Location: [address] Transitional Reading Room POCT-GLUCOSE [id number] 12:29:00 Test Item Value Reference Range Interpretation Comments POC-GLUCOSE METER 177 mg/dL 70-110 H : TESTED A T [facility] 6720 ([facility]) (test code = [place], 1538) [address]: Lighting Engineer/Techni john ID = [id number] for TAJ SANCHEZ HEMOGLOBIN [id number] 10:42:00 Test Item Value Reference Range Interpretation Comments HEMOGLOBIN A1C ([facility]) (test code = 8.1 % 4.3-6.1 H 368) POCT-GLUCOSE [id number] 09:06:00 Test Item Value Reference Range Interpretation Comments POC-GLUCOSE METER 171 mg/dL 70-110 H : TESTED A T [facility] 6720 (BEAKER) (test code = [place], 1538) [address]: Lighting Engineer/Techni john ID = [id number] for TJA SANCHEZ BASIC METABOLIC [id number] 05:40:00 Test Item Value Reference Range Interpretation [...] 697) EGFR (BEAKER) (test 10 mL/min/1.73 ESTIMA JASPER GFR IS code = 1092) sq m NOT ACCURATE CREATININE CLEARANCE IN PREDICTING GLOMERULAR FILTRATION RATE . ESTIMATED GFR I S NOT APPLICABLE FOR DIALYSIS PATIEN TS. Lighting Engineer ID - KIMBERLY [id number] 05:35:00 Test Item Value Reference Range Interpretation Comments PHOSPHORUS (BEAKER) (test code = 5.2 mg/dL 2.3-4.7 H 604) Lighting Engineer ID - KIMBERLY [id number] 05:35:00 Test Item Value Reference Range Interpretation Comments MAGNESIUM (BEAKER) (test code = 1.9 mg/dL 1.6-2.6 627) Lighting Engineer ID - KIMBERLY MCBC W/PLT COUNT & AUTO [id number] 05:08:00 Test Item Value Reference Range Interpretation [...] PERCENT (BEAKER) (test code = 2801) SARS-COV2/RT-PCR ([facility])2020-05-18 23:20:00 Test Item Value Reference Range Interpretation Comments SARS-COV2/RT-PCR (test Negative Not Detected, Negative, code = 1622133) See external report for linked test SARS-COV-2 PERFORMING LAB [facility] JOVANNY (test code = 7114502) Negative result for this test determines that [...] 564(g) of the Act.Fact Sheet for Healthcare Providers:https://www.Aislel[employer]idel.com/sites/default/files/product/documents/Fact_Shee k_PG_Pybprhagy_Vszi_LSCL-TzS-3.pdfFact Sheet for Healthcare Patients:https://www.[employer].com/sites/default/files/product/ documents/Klho_Dmjlr_Slbgnwep_Gkem_WSDA-HcF-7.pdfPerforming Laboratory:[address], [place] [address]GMIM-TQFIGMA METER 2020-05-18 22:35:00 Test Item Value Reference Range Interpretation Comments POC-GLUCOSE METER 266 mg/dL 70-110 H : TESTED Clarence T [facility] 6720 (BEAKER) (test code = KIMMY Chaney [facility], 1538) [address]: Lighting Engineer/Techni john ID = [id number] for UG FITO TATE HEPATITIS B SURFACE [id number] 17:48:00 Test Item Value Reference Range Interpretation Comments HEPATITIS B SURFACE ANTIGEN (2) Nonreactive Nonreactive (BEAKER) (test code = 2585) Specimen is considered negative for HBsAg.TSH/FREE T4 IF [id number] 17:48:00 Test Item Value Reference Range Interpretation Comments THYROID STIMULATING HORMONE 1.118 uIU/mL 0.350-4.940 (BEAKER) (test code = 772) Lighting Engineer ID - DBRAD, CHEST, 1 VIEW, NON [id number] 17:39:00Reason for exam:- >chest painShould this be [...] IMPRESSION:No acute cardiopulmonary abnormalities. Signed: Phoebe Carter [facility] VerifiedDate/Time: 05/18/2020 17:39:45 Reading Location: [address] Transitional Reading Room BASIC METABOLIC [id number] 17:32:00 Test Item Value Reference Range Interpretation [...] 697) EGFR (BEAKER) (test 10 mL/min/1.73 ESTIMA JASPER GFR IS code = 1092) sq m NOT ACCURATE CREATININE CLEARANCE IN PREDICTING GLOMERULAR FILTRATION RATE . ESTIMATED GFR I S NOT APPLICABLE FOR DIALYSIS PATIEN TS. Lighting Engineer ID - [id number] 17:26:00 Test Item Value Reference Range Interpretation Comments PHOSPHORUS (BEAKER) (test code = 4.1 mg/dL 2.3-4.7 604) Lighting Engineer ID - [id number] 17:26:00 Test Item Value Reference Range Interpretation Comments MAGNESIUM (BEAKER) (test code = 1.9 mg/dL 1.6-2.6 627) Lighting Engineer ID - DBLIPID [id number] 17:26:00 Test Item Value Reference Range Interpretation [...] Borderline 130-159 High 160-189 Very High >=190 Lighting Engineer ID - DBHEPATIC FUNCTION [id number] 17:26:00 Test Item Value Reference Range Interpretation [...] (test code = 55 U/L 6-55 347) Lighting Engineer ID - DBPT/[id number] 17:10:00 Test Item Value Reference Range Interpretation [...] mechanical heart valves.CBC W/PLT COUNT & AUTO [id number] 17:00:00 Test Item Value Reference Range Interpretation [...] PERCENT (BEAKER) (test code = 2801) POCT-GLUCOSE [id number] 15:55:00 Test Item Value Reference Range Interpretation Comments POC-GLUCOSE METER 233 mg/dL 70-110 H : TESTED Clarence Pan [facility] 6720 (BEAKER) (test code = [place], [address]38) [address]: Lighting Engineer/Techni john ID = [id number] for AVA VERA
[2021-11-15 17:07] LABS: Absolute Lymphocytes (CBC) 1.8 K/uL (0.7-4.9); Hematocrit 38.9 % (39.6-49.0); Lymphocytes % 17.2 % (15.3-44.8); MPV 8.2 fL (7.6-11.3); RBC Red Blood Cell Count 4.06 M/uL (4.33-5.43)
[2021-11-15 17:09] LABS: Protime INR 1.03
[2021-11-15 17:22] LABS: Albumin 2.3 g/dL (3.4-5.0); Bilirubin Direct 0.1 mg/dL (0-0.2); Bilirubin Total 0.4 mg/dL (0.2-1.0); Magnesium 1.9 mg/dL (1.8-2.4); Potassium 3.7 mmol/L (3.5-5.1); Protein, Total 8.3 g/dL (6.4-8.2)
--- NOTE | 2021-11-15 17:40 | RAD REPORT ---
EXAM DESCRIPTION: [facility] Single View11/15/2021 5:28 pm CLINICAL HISTORY: Shortness of breath COMPARISON: 2020 FINDINGS: Small to moderate right pleural effusion suspected with basilar atelectasis. Left lung appears clear of acute infiltrate. Heart is mildly enlarged
[2021-11-15] MEDS ORDERED: FUROSEMIDE 40 MG/4 ML VIAL ONE (17:50)
--- NOTE | 2021-11-15 18:03 | EDPHYS ---
Physician Documentation [facility] Name: Larry Seth Jr Age: 66 yrs Sex: Male : 1955 Arrival Date: 11/15/2021 Time: 16:15 Bed 8 Private MD: ED Physician Chris Tafoya HPI: 11/15 16:48 This 66 yrs old Male presents to ER via EMS with complaints of sob. rn 16:48 The patient has shortness of breath at rest, with light activity. Onset: The rn symptoms/episode began/occurred 1 month(s) ago. Duration: The symptoms are intermittent. The patient's shortness of breath is aggravated by light activity, talking, is alleviated by nothing. Associated signs and symptoms: Pertinent positives: This patient does not have any pertinent positive signs or symptoms associated with shortness of breath. Pertinent negatives: chest pain, non-productive cough, productive cough, fever, hemoptysis. Severity of symptoms: At their worst the symptoms were moderate in the emergency department the symptoms are unchanged. The patient has experienced similar episodes in the past. The patient has been recently seen by a physician:. Pt reports months of sob, worse recently but can't tell me since when, was going to come last night but thought dialysis session this AM would fix something, but didn't. No fever. No hemoptysis. Reports seeing translational specialist in [place] or [place] without clear diagnosis. . Historical: - Allergies: 16:18 Aleve; jd3 16:18 amlodipine; jd3 16:18 Ceftin; jd3 16:18 Codeine; jd3 16:18 HYDROCODONE; jd3 16:18 Latex, Natural Rubber; jd3 16:18 Sulfa (Sulfonamide Antibiotics); jd3 16:18 Tramadol HCl; jd3 - Home Meds: 16:18 atorvastatin 80 mg Oral tab 1 tab once daily [Active]; clopidogrel 75 mg Oral tab 1 tab jd3 once daily [Active]; Tresiba FlexTouch U-100 100 unit/mL (3 mL) subcutaneous inpn 75 units daily [Active]; Novolin R Sub-Q daily [Active]; furosemide 80 mg Oral tab 1 tab on non dialysis days [Active]; Dialyvite 800 oral on non-dialysis days [Active]; metoprolol succinate 50 mg Oral Tb24 1 tab twice a day [Active]; gabapentin 300 mg Oral cap 1 cap 3 times per day [Active]; aspirin 81 mg Oral TbEC 1 tab once daily [Active]; duloxetine 60 mg oral cpDR 1 cap [Active]; Coricidin HBP Oral [Active]; montelukast 10 mg Oral tab 1 tab once daily [Active]; Wellbutrin SR 150 mg Oral SR12 [Active]; - PMHx: 16:18 Chronic pain; GERD; restless leg syndrome; Hypertension; Diabetes - IDDM; COPD; jd3 - Immunization history:: Adult Immunizations up to date, Client reports receiving the 2nd dose of the Covid vaccine. - Social history:: Smoking status: Patient reports use of chewing tobacco. - Family history:: not pertinent. - Hospitalizations: : No recent hospitalization is reported. ROS: 16:48 Constitutional: Negative for fever, chills Eyes: Negative for injury, pain, redness, rn and discharge, Neck: Negative for injury, pain, and swelling, Cardiovascular: Negative for chest pain, palpitations, and edema, Respiratory: + sob Abdomen/GI: Negative for abdominal pain, nausea, vomiting, diarrhea, and constipation, Back: Negative for injury and pain, : Negative for injury, bleeding, discharge, and swelling, MS/Extremity: Negative for injury and deformity, Skin: Negative for injury, rash, and discoloration, Neuro: Negative for headache, numbness, tingling, and seizure. Exam: 16:48 Constitutional: This is a well developed, well nourished patient who is awake, alert, rn mild tachypnea with 1-2 words between each breath Head/Face: Normocephalic, atraumatic. Eyes: Pupils equal round and reactive to light, extra-ocular motions intact. Lids and lashes normal. Conjunctiva and sclera are non-icteric and not injected. Cornea within normal limits. Periorbital areas with no swelling, redness, or edema. Cardiovascular: Regular rate and rhythm. No pulse deficits. Respiratory: Mild tachypnea, no retractions. Abdomen/GI: Soft, non-tender Skin: Warm, dry MS/ Extremity: Pulses equal, no cyanosis. Neuro: Awake and alert, GCS 15 Vital Signs: 16:31 BP 100 / 69; Pulse 77; Resp 24 S; Temp 98.0(TE); Pulse Ox 100% on R/A; Weight 109.77 kg jd3 (R); Height 6 ft. 2 in. (187.96 cm) (R); Pain 10/10; 17:30 BP 127 / 68; Pulse 77; Resp 20; Pulse Ox 100% ; jh6 18:13 BP 137 / 84; Pulse 79; Resp 18; Pulse Ox 100% ; Pain 2/10; jh6 20:29 BP 156 / 60; Pulse 80; Resp 16; Pulse Ox 99% on 2 lpm NC; Pain 0/10; st1 16:31 Body Mass Index 31.07 (109.77 kg, 187.96 cm) jd3 MDM: 16:30 Patient medically screened. rn 18:00 Differential diagnosis: Anxiety Reaction CHF exacerbation, Myocardial Infarction rn pneumonia, Pneumothorax pulmonary edema, reactive airway disease, Sepsis. Data reviewed: vital signs, nurses notes, lab test result(s), EKG, radiologic studies, plain films, and as a result, I will admit patient. Counseling: I had a detailed discussion with the patient and/or guardian regarding: the historical points, exam findings, and any diagnostic results supporting the discharge/admit diagnosis, lab results, radiology results, the need for further work-up and treatment in the hospital. Admission orders: after a detailed discussion of the patient's condition and case, the admit orders are written by me. ED course: Pt with mild to moderate pleural effusion, still tachypneic, weak, can only speak 1-2 words between breaths, makes urine, given lasix, will admit for further w/u and diuresis/possible extra round of dialysis. . 11/15 16:30 Order name: BMP rn 11/15 16:30 Order name: Blood Culture Adult (2) rn 11/15 16:30 Order name: CBC with Diff; Complete Time: 17:42 rn 11/15 16:30 Order name: Hepatic Function; Complete Time: 17:42 rn 11/15 16:30 Order name: Lipase; Complete Time: 17:42 11/15 16:30 Order name: Magnesium; Complete Time: 17:42 rn 11/15 16:30 Order name: NT PRO-BNP; Complete Time: 17:42 rn 11/15 16:30 Order name: PT-INR; Complete Time: 17:17 11/15 16:30 Order name: Ptt, Activated; Complete Time: 17:17 rn 11/15 16:30 Order name: XRAY CXR (1 view); Complete Time: 17:42 rn 11/15 16:31 Order name: SARS-COV-2 RT PCR (Document "Date of Onset" if Symptomatic) rn 11/15 16:31 Order name: Basic Metabolic Panel; Complete Time: 17:42 EDMS 11/15 21:00 Order name: Glucose, Ancillary Testing [facility] 11/15 16:30 Order name: EKG; Complete Time: 16:31 rn 11/15 16:30 Order name: Cardiac monitoring; Complete Time: 16:38 rn 11/15 16:30 Order name: EKG - Nurse/Tech; Complete Time: 16:38 rn 11/15 16:30 Order name: IV Saline Lock; Complete Time: 16:56 rn 11/15 16:30 Order name: Labs collected and sent; Complete Time: 16:56 rn 11/15 16:30 Order name: O2 Per Protocol; Complete Time: 16:38 rn 11/15 16:30 Order name: O2 Sat Monitoring; Complete Time: 16:38 rn Administered Medications: 18:00 Drug: Lasix (furosemide) 40 mg Route: IVP; Site: right upper arm; [facility] 18:44 Follow up: Response: No adverse reaction [facility] Disposition Summary: 11/15/21 18:02 Hospitalization Ordered Hospitalization Status: Observation rn Provider: Cisco Tafoya rn Location: Telemetry/MedSurg (observation) rn Condition: Stable rn Problem: an ongoing problem rn Symptoms: have improved rn Bed/Room Type: Standard rn Room Assignment: [facility](11/15/21 19:45) cg Diagnosis - End stage renal disease rn - Pleural effusion, not elsewhere classified rn - Dyspnea, unspecified rn Forms: - Medication Reconciliation Form rn - SBAR form rn Signatures: Dispatcher [employer] Chris Lopes MD MD rn Garcia, Cindy RN Jesus Vann RN RN jd3 Hastedt, Jennifer RN RN jh6 Corrections: (The following items were deleted from the chart) 19:45 18:02 rn cg
--- NOTE | 2021-11-15 18:03 | ER ---
Nurse's Notes [facility] Name: Larry Steh Jr Age: 66 yrs Sex: Male : 1955 Arrival Date: 11/15/2021 Time: 16:15 Bed 8 Private MD: Diagnosis: End stage renal disease;Pleural effusion, not elsewhere classified;Dyspnea, unspecified Presentation: 11/15 16:15 Chief complaint: EMS states: "pt called reporting shortness of breath today. he had jd3 dialysis today, but it has not gotten any better. they called his primary doctor, Dr. Charlton, and was told he needed to come to the ER because this sounds like what happened last time he needed to be treated for something with his heart.". Coronavirus screen: At this time, the client does not indicate any symptoms associated with coronavirus-19. Ebola Screen: No symptoms or risks identified at this time. Initial Sepsis Screen: Does the patient meet any 2 criteria? No. Patient's initial sepsis screen is negative. Does the patient have a suspected source of infection? No. Patient's initial sepsis screen is negative. Risk Assessment: Do you want to hurt yourself or someone else? Patient reports no desire to harm self or others. Onset of symptoms was November 15, 2021. 16:15 Method Of Arrival: EMS: [facility] jd3 16:15 Acuity: JUAN CARLOS 3 jd3 Historical: - Allergies: 16:18 Aleve; jd3 16:18 amlodipine; jd3 16:18 Ceftin; jd3 16:18 Codeine; jd3 16:18 HYDROCODONE; jd3 16:18 Latex, Natural Rubber; jd3 16:18 Sulfa (Sulfonamide Antibiotics); jd3 16:18 Tramadol HCl; jd3 - Home Meds: 16:18 atorvastatin 80 mg Oral tab 1 tab once daily [Active]; clopidogrel 75 mg Oral tab 1 tab jd3 once daily [Active]; Tresiba FlexTouch U-100 100 unit/mL (3 mL) subcutaneous inpn 75 units daily [Active]; Novolin R Sub-Q daily [Active]; furosemide 80 mg Oral tab 1 tab on non dialysis days [Active]; Dialyvite 800 oral on non-dialysis days [Active]; metoprolol succinate 50 mg Oral Tb24 1 tab twice a day [Active]; gabapentin 300 mg Oral cap 1 cap 3 times per day [Active]; aspirin 81 mg Oral TbEC 1 tab once daily [Active]; duloxetine 60 mg oral cpDR 1 cap [Active]; Coricidin HBP Oral [Active]; montelukast 10 mg Oral tab 1 tab once daily [Active]; Wellbutrin SR 150 mg Oral SR12 [Active]; - PMHx: 16:18 Chronic pain; GERD; restless leg syndrome; Hypertension; Diabetes - IDDM; COPD; jd3 - Immunization history:: Adult Immunizations up to date, Client reports receiving the 2nd dose of the Covid vaccine. - Social history:: Smoking status: Patient reports use of chewing tobacco. - Family history:: not pertinent. - Hospitalizations: : No recent hospitalization is reported. Screenin:40 Abuse screen: Denies threats or abuse. Nutritional screening: No deficits noted. jh6 Tuberculosis screening: No symptoms or risk factors identified. Fall Risk Fall in past 12 months (25 points). Secondary diagnosis (15 points) impaired mobility, IV access (20 points). Assessment: 16:58 General: Appears uncomfortable, Behavior is calm, cooperative. Pain: Denies pain. jh6 Cardiovascular: Reports fatigue, lightheadedness, nausea, shortness of breath, states chronic sob with weakness. However, pt has had increased sob over the last week and is unable to get relief even after dialysis. Respiratory: Reports shortness of breath at rest on exertion Breath sounds are clear the patient has moderate shortness of breath. 18:14 Reassessment: No changes from previously documented assessment. Patient and/or family jh6 updated on plan of care and expected duration. Pain level reassessed. General: Appears in no apparent distress. Behavior is calm, cooperative. Pain: Complains of pain in buttocks. Vital Signs: 16:31 BP 100 / 69; Pulse 77; Resp 24 S; Temp 98.0(TE); Pulse Ox 100% on R/A; Weight 109.77 kg jd3 (R); Height 6 ft. 2 in. (187.96 cm) (R); Pain 10/10; 17:30 BP 127 / 68; Pulse 77; Resp 20; Pulse Ox 100% ; jh6 18:13 BP 137 / 84; Pulse 79; Resp 18; Pulse Ox 100% ; Pain 2/10; jh6 20:29 BP 156 / 60; Pulse 80; Resp 16; Pulse Ox 99% on 2 lpm NC; Pain 0/10; st1 16:31 Body Mass Index 31.07 (109.77 kg, 187.96 cm) jd3 Vitals: 17:30 Cardiac Rhythm Assessment Regular Sinus rhythm. 6 ED Course: 16:15 Patient arrived in ED. jd3 16:18 Triage completed. jd3 16:30 Chris Tafoya MD is Attending Physician. rn 16:33 Arm band placed on. jd3 16:40 Placed in gown. Bed in low position. Call light in reach. Side rails up X2. Adult w/ 6 patient. 16:40 EKG done, by ED staff, reviewed by Chris Tafoya MD COVID swab sent to lab. 6 16:40 Oxygen administration via nasal cannula \\T\\ 2L/min. 6 16:58 Enid Ken, RN is Primary Nurse. [facility] 17:00 Inserted saline lock: 18 gauge in right upper arm, using aseptic technique. Blood [facility] collected. 17:28 XRAY CXR (1 view) In Process Unspecified. EDMS 18:01 Cisco Tafoya MD is Hospitalizing Provider. rn 18:52 BMP Sent. [facility] 20:28 No provider procedures requiring assistance completed. Patient admitted, IV remains in st1 place. Administered Medications: 18:00 Drug: Lasix (furosemide) 40 mg Route: IVP; Site: right upper arm; 6 18:44 Follow up: Response: No adverse reaction [facility] Outcome: 18:02 Decision to Hospitalize by Provider. rn 20:28 Admitted to Med/surg accompanied by tech, with oxygen, with chart, Report called to [facility] 20:28 Condition: good 20:28 Instructed on the need for admit, Demonstrated understanding of 21:01 Patient left the ED. [facility] Signatures: Dispatcher [employer] EDMS Chris Tafoya MD MD rn Davies, Jonathon, RN RN jd3 Hastedt, Jennifer, RN RN [facility] Ofelia Ferrera RN RN [facility]
--- NOTE | 2021-11-15 20:02 | P.HP ---
Certification for Inpatient Patient admitted to: Observation With expected LOS: <2 Midnights Patient will require the following post-hospital care: None Practitioner: I am a practitioner with admitting privileges, knowledge of patient current condition, hospital course, and medical plan of care. Services: Services provided to patient in accordance with Admission requirements found in Title 42 Section 412.3 of the Code of Federal Regulations Patient History Date of Service: 11/15/21 Reason for admission: Dyspnea History of Present Illness: 66-year-old male with history of ESRD on HD MWF, diabetes mellitus type 1insulin-dependent, hypertension, COPD and CAD status post CABG presents emergency department for shortness of breath. Patient reports ongoing shortness of breath increasing over the course of the last few weeks, had outpatient thoracentesis for right-sided pleural effusion here on 08/20/2021 cytology was performed which revealed no malignant cells identified approximately 900 cc of reddish-brown fluid removed at that time. Patient was evaluated here in the emergency room today his labs were significant for hemoglobin 13 hematocrit 38.9 creatinine 3.13 GFR 20 glucose 171 BNP 11,476 Covid negative chest x-ray revealed small to moderate right pleural effusion with basilar atelectasis left lung clear. Patient saturating 99 to 100% on room air at this time but subjectively feels very short of breath, appears dyspneic speaking in short sentences. Patient without expiratory wheezing. ED provider wishes to admit under observation for further evaluation and management of his dyspnea. Patient also reports significant recent unintentional weight loss. Allergies cefuroxime [From Ceftin] Allergy (Verified 08/20/21 09:59) Itching/Hives/Rash latex Allergy (Verified 08/20/21 09:59) Hives naproxen [From Aleve] Allergy (Verified 08/20/21 09:59) Itching Sulfa (Sulfonamide Antibiotics) Allergy (Verified 08/20/21 09:59) Hives amlodipine Adverse Reaction (Verified 08/20/21 09:59) Shortness of breath codeine Adverse Reaction (Verified 08/20/21 09:59) Nausea/Vomiting hydrocodone Adverse Reaction (Verified 08/20/21 09:59) Nausea/Vomiting tramadol Adverse Reaction (Verified 08/20/21 09:59) Nausea/Vomiting Home Medications: Aspirin [Arjun Chewable Aspirin] 81 mg PO DAILY 09/01/16 Furosemide 80 mg PO DAILY 09/01/16 Insulin Degludec [Tresiba Flextouch U-100] 20 units SQ DAILY 10/02/18 Montelukast [Singulair*] 10 mg PO DAILY 10/02/18 Clopidogrel Bisulfate [Plavix*] 75 mg PO DAILY #30 tablet 10/06/18 Gabapentin 600 mg PO BEDTIME 02/07/19 Atorvastatin Calcium [Lipitor] 80 mg PO BEDTIME 08/20/21 Azelastine/Fluticasone [Azelastin-Flutic 137-50Mcg Spr] 23 gm NS DAILY 08/20/21 Budesonide/Formoterol Fumarate [Symbicort 160-4.5 Mcg Inhaler] 2 puff IH BID 08/20/21 Buproprion S.r. [Wellbutrin SR] 150 mg PO DAILY 08/20/21 Ergocalciferol (Vitamin D2) [Vitamin D2] 50,000 unit PO DAILY 08/20/21 Insulin -Regular Human [Novolin -R*] 8 unit SQ BID 08/20/21 Magnesium Oxide 400 mg PO BEDTIME 08/20/21 Metoprolol Tartrate [Lopressor] 25 mg PO BEDTIME 08/20/21 Metoprolol Tartrate [Lopressor] 50 mg PO DAILY 08/20/21 Vit B Comp C/Folic Acid/Vit D3 [Dialyvite 800 Plus D Wafer] 1 each PO DAILY 08/20/21 - Past Medical/Surgical History Diabetic: Yes -: Asbestosis -: Diabetes mellitus type 2, insulin dependent -: GERD -: Restless leg syndrome -: Chronic pain neck, arms, shoulder, back -: HTN -: Neuropathy -: ESRD on HD -: Hyperlipidemia -: Former tobacco use -: Back sx x2 -: Cholecystectomy -: Hernia repair -: Heart catheterization, stent placement Psychosocial/ Personal History: Patient is - Family History Family History: Reviewed- Non-Contributory - Social History Smoking Status: Never smoker Alcohol use: No CD- Drugs: No Caffeine use: Yes Place of Residence: Home Review of Systems 10-point ROS is otherwise unremarkable General: Other (Weight loss) Respiratory: Shortness of Breath, SOB with Excertion, As per HPI Physical Examination - Physical Exam General: Alert, In no apparent distress, Oriented x3 HEENT: Atraumatic, PERRLA, Other (Mucous membranes dry), EOMI, Sclerae nonicteric Neck: Supple, 2+ carotid pulse no bruit, No LAD, Without JVD or thyroid abnormality Respiratory: Normal air movement, Diminished Cardiovascular: No edema, Regular rate/rhythm, Normal S1 S2 Capillary refill: <2 Seconds Gastrointestinal: Normal bowel sounds, No tenderness Musculoskeletal: No tenderness Integumentary: No rashes Neurological: Normal speech, Normal tone, Normal affect Lymphatics: No axilla or inguinal lymphadenopathy - Studies Laboratory Data (last 24 hrs) 11/15/21 16:51: PT 11.9, INR 1.03, APTT 35.7 11/15/21 16:51: WBC 10.60, Hgb 13.0 L, Hct 38.9 L, Plt Count 256 11/15/21 16:51: Sodium 136, Potassium 3.7, BUN 11, Creatinine 3.13 H, Glucose 171 H, Magnesium 1.9, Total Bilirubin 0.4, AST 24, ALT 30, Alkaline Phosphatase 200 H, Lipase 132 Assessment and Plan - Plan Assessment: Dyspnea, small to moderate right pleural effusion ESRD on HD MWF Diabetes mellitus type 2insulin-dependent CAD status post CABG 2019 Hypertension Hyperlipidemia Plan: Dyspnea, small to moderate right pleural effusion: Pulmonology consulted, patient did have thoracentesis in July of last year with a proximally 900 cc of fluid taken out, no malignant cells noted on cytology. Vital signs stable this time unknown etiology of dyspnea. Unable to obtain echocardiogram this weekend. Will await further recommendations from pulmonology. ESRD on HD MWF: Nephrology consulted, had dialysis this morning did complete his session. Diabetes mellitus type 2insulin-dependent: ACH S Accu-Chek sliding scale insuli n CAD status post CABG 2019: Obtain and continue home medications, monitor on telemetry. Hypertension: Continue home medications Hyperlipidemia: Continue home medications DVT PPX: Heparin Code status: Full Discharge Plan: Home Plan to discharge in: 24 Hours - Advance Directives Does patient have a Living Will: No Does patient have a Durable POA for Healthcare: No - Code Status/Comfort Care Code Status Assessed: Yes (Full) Critical Care: No Time Spent Managing Pts Care (In Minutes): 55
[2021-11-15] MEDS ORDERED: ONDANSETRON 4 MG/2 ML VIAL IV PRN (20:55)
[2021-11-15] MEDS ORDERED: ALBUTEROL 2.5 MG/3 ML NEB SOL NEB PRN (20:55)
[2021-11-15 20:57] VITALS: BMI 29.4
[2021-11-15] MEDS: INSULIN -REGULAR HUMAN 50 UNIT/0.5 ML ML SQ SCH (21:00)
[2021-11-15] MEDS: HEPARIN 5000 UNIT/ML 1 ML VIAL SQ SCH (21:20)
[2021-11-15] MEDS ORDERED: CLOPIDOGREL 75 MG TABLET PO SCH (22:00)
[2021-11-15] MEDS ORDERED: NA CHLORIDE 0.9% 1,000 ML IV PRN (22:27)
[2021-11-15] MEDS ORDERED: MANNITOL 25% 12.5 GM/50 ML VIAL IV PRN (22:27)
[2021-11-15] MEDS: CLOPIDOGREL 75 MG TABLET PO SCH (22:58)
[2021-11-15] MEDS ORDERED: ALBUMIN HUMAN 25% 50 ML IV SCH (23:00)
[2021-11-16 06:15] LABS: Absolute Lymphocytes (CBC) 1.6 K/uL (0.7-4.9); Lymphocytes % 20.5 % (15.3-44.8); MPV 8.2 fL (7.6-11.3); RBC Red Blood Cell Count 3.98 M/uL (4.33-5.43)
--- NOTE | 2021-11-16 06:20 | P.PN ---
Date of Service: 11/16/21 Subjective: Feels maybe slightly better, but mostly unchanged since admission Very short of breath Also reports 23 syncopal episodes of strangulation Over 100 pound weight loss over the last year Early satiety, dyspepsia ROS: 10 point ROS as noted above, otherwise negative Physical exam GEN: Alert, oriented, dyspneic HEENT: Normal conjunctiva, sclera anicteric CV: Regular rate and rhythm, no edema Pulm: Dyspneic/out of breath when talking, diminished bilaterally, more on right ABD: Soft, nontender, nondistended Integumentary: No rashes Neuro: Speech is slow due to dyspnea, moves all 4 extremities Problem List Dyspnea small right pleural effusion ESRD on HD MWF Diabetes mellitus type 2insulin-dependent CAD status post CABG 2019 Hypertension Hyperlipidemia Unclear etiology of dyspnea Small right pleural effusion/chest x-ray did not reveal any obvious source to cause this level of dyspnea Has had large pleural effusion in the past requiring thoracentesis This episode been on for 1 month At least 2 or 3 episodes of syncope/fall as well CT chest abdomen/pelvis, will give IV contrast to rule out PE. Discussed with nephrology, plan for dialysis afterwards Evaluate for PE, further evaluate effusion, will look to rule out pericardial effusion as well. Either of these could be causing some of his symptoms. Does not exactly have tamponade physiology/findings Pulmonology consulted, added low-dose Decadron Patient will need an echocardiogram, cannot be done until Thursday VTE: Heparin Code: Full Dispo: Anticipate DC home, in 2 days Time Spent Managing Pts Care (In Minutes): 35
[2021-11-16 06:39] LABS: Albumin 2.2 g/dL (3.4-5.0); Bilirubin Total 0.4 mg/dL (0.2-1.0); Potassium 3.4 mmol/L (3.5-5.1); Protein, Total 7.3 g/dL (6.4-8.2); Thyroid Stimulating Hormone 1.97 uIU/mL (0.360-3.740)
[2021-11-16] MEDS: INSULIN -REGULAR HUMAN 50 UNIT/0.5 ML ML SQ SCH ×4 (07:30→20:57)
[2021-11-16] MEDS: AZELASTINE NAS SCH (09:00)
[2021-11-16] MEDS: METOPROLOL TAR 50 MG TAB PO SCH ×2 (09:00→20:53)
[2021-11-16] MEDS: FLUTICASONE NAS SCH (09:00)
[2021-11-16] MEDS: [UNRECOGNIZED DRUG - OTHER] NAS SCH (09:00)
[2021-11-16] MEDS: HOME MED 1 EA UNK (Budesonide/Formoterol Fumarate [Symbicort 160-4.5 Mcg Inhaler] 10.2 GM IH SCH ×2 (09:00→21:07)
[2021-11-16] MEDS: HEPARIN 5000 UNIT/ML 1 ML VIAL SQ SCH ×2 (09:00→20:53)
[2021-11-16] MEDS: MONTELUKAST 10 MG TAB PO SCH (09:00)
[2021-11-16] MEDS: VITAMIN D 5,000 UNIT CAP PO SCH (09:07)
[2021-11-16] MEDS: PANTOPRAZOLE 40MG TABLET PO SCH (09:07)
[2021-11-16] MEDS: ASPIRIN 81 MG CHEWABLE TABLET PO SCH (09:07)
--- NOTE | 2021-11-16 09:23 | P.CNS ---
Date of Consult: 11/16/21 Reason for Consult: SOB Chief Complaint: Dyspnea History of Present Illness: Age 66 ESRD, metabolic synd COPD and CAD aw SOB worse past few weeks , OP R thoracentesis 07/2021/patient has been having problems for the past month increasing dyspnea compliant with hemodialysis denies any fever chills he has had a pericardiocentesis and a right-sided thoracentesis after his CABG recent fall unable to ambulate but a few feet also complaining of some dyspepsia enrique castillo has never smoked but he has a history of COPD Allergies cefuroxime [From Ceftin] Allergy (Verified 11/16/21 03:34) Itching/Hives/Rash latex Allergy (Verified 11/16/21 03:34) Hives naproxen [From Aleve] Allergy (Verified 11/16/21 03:34) jitters Sulfa (Sulfonamide Antibiotics) Allergy (Verified 11/16/21 03:34) Hives amlodipine Adverse Reaction (Verified 11/16/21 03:34) Shortness of breath codeine Adverse Reaction (Verified 11/16/21 03:34) migraine hydrocodone Adverse Reaction (Verified 11/16/21 03:34) migraine tramadol Adverse Reaction (Verified 11/16/21 03:34) Nausea/Vomiting Home Medications: Aspirin [Arjun Chewable Aspirin] 81 mg PO DAILY 09/01/16 Furosemide 80 mg PO DAILY 09/01/16 Insulin Degludec [Tresiba Flextouch U-100] 12 units SQ DAILY 10/02/18 Montelukast [Singulair*] 10 mg PO DAILY 10/02/18 Gabapentin 300 mg PO BEDTIME 02/07/19 Atorvastatin Calcium [Lipitor] 80 mg PO BEDTIME 08/20/21 Azelastine/Fluticasone [Azelastin-Flutic 137-50Mcg Spr] 1 spray NS DAILY 08/20/21 Budesonide/Formoterol Fumarate [Symbicort 160-4.5 Mcg Inhaler] 2 puff IH BID 08/20/21 Buproprion S.r. [Wellbutrin SR] 150 mg PO DAILY 08/20/21 Insulin -Regular Human [Novolin -R*] See Protocol SQ BID 08/20/21 Metoprolol Tartrate [Lopressor] 50 mg PO BID 08/20/21 Vit B Comp C/Folic Acid/Vit D3 [Dialyvite 800 Plus D Wafer] 1 each PO SEECOM 08/20/21 Acetaminophen/Chlorpheniramine [Coricidin Hbp Cold-Flu Tablet] 1 tab PO BEDTIME 11/15/21 Cholecalciferol (Vitamin D3) [Vitamin D 5,000 IU Cap*] 5,000 unit PO DAILY 11/15/21 Citalopram Hydrobromide [Citalopram HBr] 20 mg PO BEDTIME 11/15/21 Clopidogrel Bisulfate [Plavix*] 75 mg PO SEECOM 11/15/21 Duloxetine HCl 60 mg PO BEDTIME 11/15/21 Magnesium Oxide 250 mg PO DAILY 11/15/21 Melatonin [Melatin] 3 mg PO BEDTIME 11/15/21 Pantoprazole [Protonix Tab*] 40 mg PO DAILY 11/15/21 - Past Medical/Surgical History Diabetic: Yes -: Asbestosis -: Diabetes mellitus type 2, insulin dependent -: GERD -: Restless leg syndrome -: Chronic pain neck, arms, shoulder, back -: HTN -: Neuropathy -: ESRD on HD -: Hyperlipidemia -: Former tobacco use -: Back sx x2 -: Cholecystectomy -: Hernia repair -: Heart catheterization, stent placement Psychosocial/ Personal History: Patient is - Family History Mother Medical History: Heart disease, Diabetes Father Medical History: Other (see notes) Notes: alziehmers - Social History Alcohol use: No CD- Drugs: No Caffeine use: No Place of Residence: Home Review of Systems 10-point ROS is otherwise unremarkable General: Weakness, Other Respiratory: Shortness of Breath Physical Examination Temp Pulse Resp BP Pulse Ox 97.6 F 90 15 151/84 H 98 11/16/21 04:00 11/16/21 04:00 11/16/21 04:00 11/16/21 04:00 11/16/21 04:00 General: Alert, Oriented x3, Mild distress Respiratory: Clear to auscultation bilaterally Cardiovascular: No edema, Normal S1 S2 Gastrointestinal: Normal bowel sounds, Soft and benign Musculoskeletal: No clubbing Integumentary: No rashes, No breakdown Laboratory Data (last 24 hrs) 11/15/21 16:51: PT 11.9, INR 1.03, APTT 35.7 11/15/21 16:51: WBC 10.60, Hgb 13.0 L, Hct 38.9 L, Plt Count 256 11/15/21 16:51: Sodium 136, Potassium 3.7, BUN 11, Creatinine 3.13 H, Glucose 171 H, Magnesium 1.9, Total Bilirubin 0.4, AST 24, ALT 30, Alkaline Phosphatase 200 H, Lipase 132 - Problems (1) SOB (shortness of breath) Onset Date: 09/01/16 Current Visit: No Status: Acute Plan: Patient is 66 years of age s/p CABG pericardial window right-sided thoracentesis. With progressive dyspnea for the past month does not appear to be volume overloaded there is no lower extremity edema patient does undergo regular scheduled dialysis he is very dyspneic chest x-ray mild interstitial changes continue with bronchodilators trial of steroids agree with CT angio vital signs oxygenation stable scheduled to undergo another hemodialysis today add low-dose Decadron
[2021-11-16] MEDS: BUPROPRION HCL S.R. 150MG TAB PO SCH (10:32)
[2021-11-16] MEDS: dexAMETHasone 4 MG TAB PO SCH ×2 (10:38→20:56)
--- NOTE | 2021-11-16 11:08 | RAD REPORT ---
EXAM DESCRIPTION: CT - Chest For Pe Angio - 11/16/2021 10:53 am CLINICAL HISTORY: r/o PEchest pain, shortness of breath COMPARISON: Chest Abd Pelvis Wo Con dated 06/25/2020; Thorax Wo Con dated 09/01/2016 TECHNIQUE: Dynamically enhanced 2 mm thick images of the chest were obtained during administration o f approximately 150mL Isovue 370 IV contrast. Coronal and oblique MIP reconstruction images were gene rated and reviewed. Exam utilizes a protocol to evaluate the pulmonary arterial tree. All CT scans are performed using dose optimization technique as appropriate and may include automated exposure control or mA/KV adjustment according to patient size. FINDINGS: No pulmonary emboli are identified. Contrast density was not optimal but was diagnostic to exclude all but far peripheral pulmonary emboli. The aorta as imaged shows no acute or suspicious finding. No pericardial thickening or effusion. Left ventricular myocardium does appear to be thickened. CT sensitivity is limited. Follow-up cardiac ech o could be performed as warranted. Small bilateral pleural effusions are present. There is lung parenchymal opacification posterior lowe r left lung field that is more likely atelectasis than infiltrate. The left pleural effusion may well be loculated. Right pleural effusion volume is similar to the 2019 study and is probably loculated a s well. Areas of atelectasis are present. There is scarred lung parenchyma. No pneumothorax. No mediastinal or hilar suspicious masses. No chest wall masses or abnormal axillary lymphadenopathy. IMPRESSION: No pulmonary emboli identified. Bilateral small pleural effusions with both effusions probably loculated. Bilateral lung parenchymal opacification abutting the pleural effusions is favored to be atelectasis rather than infiltrate. Cor relation can be made with any clinical or laboratory findings for pneumonia. Suspected left ventricular myocardial hypertrophy. CT sensitivity is limited. Cardiac echo could be p erformed to confirm or exclude wall hypertrophy.
--- NOTE | 2021-11-16 11:10 | RAD REPORT ---
EXAM DESCRIPTION: CT - Abdomen Pelvis W Contrast - 11/16/2021 10:46 am CLINICAL HISTORY: stomach fullness/satiety, significant weight loss COMPARISON: No comparisons TECHNIQUE: Biphasic, helical CT imaging of the abdomen and pelvis was performed following 100 ml non -ionic IV contrast. No oral contrast administered. All CT scans are performed using dose optimization technique as appropriate and may include automated exposure control or mA/KV adjustment according to patient size. FINDINGS: Lung base findings are detailed in the separate CT chest report. The liver, spleen, and pancreas show no suspicious findings. Cholecystectomy clips are present. No bi liary tree dilatation. Symmetric renal function is seen with no hydronephrosis or suspicious renal mass. No pyelonephritis o r acute parenchymal process. No bladder abnormalities. No adrenal abnormalities. No dilated bowel loops or bowel wall thickening. Sigmoid diverticulosis present without diverticuliti s. No findings of appendicitis. No free air, free fluid or inflammatory stranding. No hernia, mass o r bulky lymphadenopathy. No suspicious bony findings. IMPRESSION: Contrast enhanced CT abdomen and pelvis showing no acute or emergent finding.
--- NOTE | 2021-11-16 19:53 | P.CNS ---
Date of Consult: 11/16/21 Reason for Consult: ESRD Requesting Physician: Cisco Tafoya Chief Complaint: Dyspnea History of Present Illness: 66-year-old male with history of ESRD on HD MWF, diabetes mellitus type 1insulin-dependent, hypertension, COPD and CAD status post CABG presents emergency department for shortness of breath. Patient reports ongoing shortness of breath increasing over the course of the last few weeks, had outpatient thoracentesis for right-sided pleural effusion here on 08/20/2021 cytology was performed which revealed no malignant cells identified approximately 900 cc of reddish-brown fluid removed at that time. Patient was evaluated here in the emergency room today his labs were significant for hemoglobin 13 hematocrit 38.9 creatinine 3.13 GFR 20 glucose 171 BNP 11,476 Covid negative chest x-ray revealed small to moderate right pleural effusion with basilar atelectasis left lung clear. Patient saturating 99 to 100% on room air at this time but subjectively feels very short of breath, appears dyspneic speaking in short sentences. Patient without expiratory wheezing. ED provider wishes to admit under observation for further evaluation and management of his dyspnea. Patient also reports significant recent unintentional weight loss. 16:48 This 66 yrs old Male presents to ER via EMS with complaints of sob. rn 16:48 The patient has shortness of breath at rest, with light activity. Onset: The rn symptoms/episode began/occurred 1 month(s) ago. Duration: The symptoms are intermittent. The patient's shortness of breath is aggravated by light activity, talking, is alleviated by nothing. Associated signs and symptoms: Pertinent positives: This patient does not have any pertinent positive signs or symptoms associated with shortness of breath. Pertinent negatives: chest pain, non-productive cough, productive cough, fever, hemoptysis. Severity of symptoms: At their worst the symptoms were moderate in the emergency department the symptoms are unchanged. The patient has experienced similar episodes in the past. The patient has been recently seen by a physician:. Pt reports months of sob, worse recently but can't tell me since when, was going to come last night but thought dialysis session this AM would fix something, but didn't. No fever. No hemoptysis. Reports seeing specifications writer in [place] or [place] without clear diagnosis. Allergies cefuroxime [From Ceftin] Allergy (Verified 11/16/21 03:34) Itching/Hives/Rash latex Allergy (Verified 11/16/21 03:34) Hives naproxen [From Aleve] Allergy (Verified 11/16/21 03:34) jitters Sulfa (Sulfonamide Antibiotics) Allergy (Verified 11/16/21 03:34) Hives amlodipine Adverse Reaction (Verified 11/16/21 03:34) Shortness of breath codeine Adverse Reaction (Verified 11/16/21 03:34) migraine hydrocodone Adverse Reaction (Verified 11/16/21 03:34) migraine tramadol Adverse Reaction (Verified 11/16/21 03:34) Nausea/Vomiting Home medications list reviewed: Yes Home Medications: Aspirin [Arjun Chewable Aspirin] 81 mg PO DAILY 09/01/16 Furosemide 80 mg PO DAILY 09/01/16 Insulin Degludec [Tresiba Flextouch U-100] 12 units SQ DAILY 10/02/18 Montelukast [Singulair*] 10 mg PO DAILY 10/02/18 Gabapentin 300 mg PO BEDTIME 02/07/19 Atorvastatin Calcium [Lipitor] 80 mg PO BEDTIME 08/20/21 Azelastine/Fluticasone [Azelastin-Flutic 137-50Mcg Spr] 1 spray NS DAILY 08/20/21 Budesonide/Formoterol Fumarate [Symbicort 160-4.5 Mcg Inhaler] 2 puff IH BID 08/20/21 Buproprion S.r. [Wellbutrin SR] 150 mg PO DAILY 08/20/21 Insulin -Regular Human [Novolin -R*] See Protocol SQ BID 08/20/21 Metoprolol Tartrate [Lopressor] 50 mg PO BID 08/20/21 Vit B Comp C/Folic Acid/Vit D3 [Dialyvite 800 Plus D Wafer] 1 each PO SEECOM 08/20/21 Acetaminophen/Chlorpheniramine [Coricidin Hbp Cold-Flu Tablet] 1 tab PO BEDTIME 11/15/21 Cholecalciferol (Vitamin D3) [Vitamin D 5,000 IU Cap*] 5,000 unit PO DAILY 11/15/21 Citalopram Hydrobromide [Citalopram HBr] 20 mg PO BEDTIME 11/15/21 Clopidogrel Bisulfate [Plavix*] 75 mg PO SEECOM 11/15/21 Duloxetine HCl 60 mg PO BEDTIME 11/15/21 Magnesium Oxide 250 mg PO DAILY 11/15/21 Melatonin [Melatin] 3 mg PO BEDTIME 11/15/21 Pantoprazole [Protonix Tab*] 40 mg PO DAILY 11/15/21 - Past Medical/Surgical History Diabetic: Yes -: Asbestosis -: Diabetes mellitus type 2, insulin dependent -: GERD -: Restless leg syndrome -: Chronic pain neck, arms, shoulder, back -: HTN -: Neuropathy -: ESRD on HD -: Hyperlipidemia -: Former tobacco use -: Back sx x2 -: Cholecystectomy -: Hernia repair -: Heart catheterization, stent placement Psychosocial/ Personal History: Patient is - Family History Mother Medical History: Heart disease, Diabetes Father Medical History: Other (see notes) Notes: alziehmers - Social History Alcohol use: No CD- Drugs: No Caffeine use: No Place of Residence: Home Review of Systems 10-point ROS is otherwise unremarkable Respiratory: SOB with Excertion Gastrointestinal: Nausea, Vomiting Neurological: Weakness Physical Examination Temp Pulse Resp BP Pulse Ox 97.6 F 104 H 20 165/74 H 97 11/16/21 16:00 11/16/21 16:00 11/16/21 16:00 11/16/21 16:00 11/16/21 16:00 General: Oriented x3, Cooperative, Mild distress HEENT: Atraumatic Neck: Supple Respiratory: Diminished Cardiovascular: Regular rate/rhythm, Edema Gastrointestinal: Soft and benign, Non-distended Musculoskeletal: No clubbing, No contractures Integumentary: No rashes, No cyanosis Neurological: Normal speech Laboratory Data (last 24 hrs) 11/16/21 06:04: Sodium 138, Potassium 3.4 L, BUN 17, Creatinine 3.92 H, Glucose 134 H, Magnesium 2.0, Total Bilirubin 0.4, AST 19, ALT 26, Alkaline Phosphatase 173 H 11/16/21 06:04: WBC 7.80 D, Hgb 12.4 L, Hct 38.0 L, Plt Count 253 Imagings Data: EXAM DESCRIPTION: [facility] Single View11/15/2021 5:28 pm CLINICAL HISTORY: Shortness of breath COMPARISON: 2020 FINDINGS: Small to moderate right pleural effusion suspected with basilar atelectasis. Left lung appears clear of acute infiltrate. Heart is mildly enlarged EXAM DESCRIPTION: CT - Chest For Pe Angio - 11/16/2021 10:53 am CLINICAL HISTORY: r/o PEchest pain, shortness of breath COMPARISON: Chest Abd Pelvis Wo Con dated 06/25/2020; Thorax Wo Con dated 09/01/2016 TECHNIQUE: Dynamically enhanced 2 mm thick images of the chest were obtained during administration of approximately 150mL Isovue 370 IV contrast. Coronal and oblique MIP reconstruction images were generated and reviewed. Exam utilizes a protocol to evaluate the pulmonary arterial tree. All CT scans are performed using dose optimization technique as appropriate and may include automated exposure control or mA/KV adjustment according to patient size. FINDINGS: No pulmonary emboli are identified. Contrast density was not optimal but was diagnostic to exclude all but far peripheral pulmonary emboli. The aorta as imaged shows no acute or suspicious finding. No pericardial thickening or effusion. Left ventricular myocardium does appear to be thickened. CT sensitivity is limited. Follow-up cardiac echo could be performed as isamar anted. Small bilateral pleural effusions are present. There is lung parenchymal opacification posterior lower left lung field that is more likely atelectasis than infiltrate. The left pleural effusion may well be loculated. Right pleural effusion volume is similar to the 2019 study and is probably loculated as well. Areas of atelectasis are present. There is scarred lung parenchyma. No pneumothorax. No mediastinal or hilar suspicious masses. No chest wall masses or abnormal axillary lymphadenopathy. IMPRESSION: No pulmonary emboli identified. Bilateral small pleural effusions with both effusions probably loculated. Bilateral lung parenchymal opacification abutting the pleural effusions is favored to be atelectasis rather than infiltrate. Correlation can be made with any clinical or laboratory findings for pneumonia. Suspected left ventricular myocardial hypertrophy. CT sensitivity is limited. Cardiac echo could be performed to confirm or exclude wall hypertrophy. Conclusions/Impression: ESRD -HD TIW -Seen and examined on HD Hypokalemia -Encourage nutrition HTN with CKD/ CHF -Continue Metoprolol Diastolic CHF, A/C -HD with UF -Continue Metoprolol DM II with CKD -RISS Moderate malnutrition -Start Nepro Anemia in CKD -Start Retacrit CKD MBD -Start Calcitriol Case discussed with Dr. Tafoya Thank you kindly for the consultation.
[2021-11-16] MEDS: DOCUSATE NA 100 MG CAP PO SCH (20:55)
[2021-11-16] MEDS: CITALOPRAM 10 MG TABLET PO SCH (20:55)
[2021-11-16] MEDS: GABAPENTIN 300 MG CAP PO SCH (20:55)
[2021-11-16] MEDS: MELATONIN 3 MG TABLET PO SCH (20:56)
[2021-11-16] MEDS: DULOXETINE 30 MG CAP PO SCH (20:56)
[2021-11-16] MEDS: ACETAMINOPHEN PO SCH (21:07)
[2021-11-16] MEDS: CHLORPHENIRAMINE PO SCH (21:07)
[2021-11-16] MEDS: [UNRECOGNIZED DRUG - OTHER] PO SCH (21:07)
[2021-11-16] MEDS: ATORVASTATIN 80 MG TAB PO SCH (21:08)
[2021-11-16] MEDS: NEPRO SHAKE 237 ML CAN PO SCH (21:21)
[2021-11-17 02:33] LABS: Urine Appearance CLOUDY (Clear); Urine Blood NEGATIVE (Negative); Urine Color DK YELLOW (Yellow); Urine Glucose 1+ (Negative); Urine Protein 3+ (Negative); Urine Specific Gravity 1.025 (1.005-1.030); Urine Urobilinogen 0.2 mg/dL (0.2-1.0); Urine pH 6.5 (5.0-7.0)
[2021-11-17 02:37] LABS: Urine Bilirubin NEGATIVE (Negative); Urine Microscopic Reflex ORDER UMIC
[2021-11-17 02:45] LABS: Urine Bacteria 20-50 /HPF (NONE SEEN); Urine Mucus 1+ /HPF (NONE SEEN); Urine RBC <5 /HPF (NONE SEEN)
[2021-11-17 02:46] LABS: Urine Sperm PRESENT (NONE SEEN)
--- NOTE | 2021-11-17 06:15 | P.PN ---
Date of Service: 11/17/21 Subjective: No significant change in yesterday Continues to feel out of breath/dyspneic Denies chest pain ROS: 10 point ROS as noted above, otherwise negative Physical exam GEN: Alert, oriented, dyspneic HEENT: Normal conjunctiva, sclera anicteric CV: Regular rate and rhythm, no edema Pulm: Dyspneic/out of breath when talking, diminished bilaterally ABD: Soft, nontender, nondistended Neuro: Speech is slow due to dyspnea, strength 5/5 in all 4 extremities Problem List Dyspnea Syncope small right pleural effusion ESRD on HD MWF Diabetes mellitus type 2insulin-dependent CAD status post CABG 2019 Hypertension Hyperlipidemia Unclear etiology of dyspnea over the last [address] without any evidence to suggest level of dyspnea, no PE Pulmonology consulted, added low-dose Decadron on 11/16 Also with few episodes of falls, with what sounds like loss of consciousness with [address] abdomen/pelvis negative for any acute process cannot obtain secondary to patient 100 pound weight loss, early satiety Echocardiogram ordered for tomorrow Cardiology consulted, to evaluate for cardiac etiology VTE: Heparin Code: Full Dispo: Anticipate DC home, in 1-2 days Time Spent Managing Pts Care (In Minutes): 35
[2021-11-17 06:17] LABS: Hematocrit 41.5 % (39.6-49.0); RBC Red Blood Cell Count 4.27 M/uL (4.33-5.43)
[2021-11-17 06:18] LABS: Absolute Lymphocytes (CBC) 1.2 K/uL (0.7-4.9); Lymphocytes % 12.9 % (15.3-44.8); MPV 8.5 fL (7.6-11.3)
[2021-11-17 06:38] LABS: Albumin 2.5 g/dL (3.4-5.0); Bilirubin Total 0.4 mg/dL (0.2-1.0); Magnesium 2.3 mg/dL (1.8-2.4); Potassium 4.5 mmol/L (3.5-5.1); Protein, Total 8.3 g/dL (6.4-8.2)
[2021-11-17] MEDS: HOME MED 1 EA UNK (Budesonide/Formoterol Fumarate [Symbicort 160-4.5 Mcg Inhaler] 10.2 GM IH SCH ×2 (09:00→21:00)
[2021-11-17] MEDS: DOCUSATE NA 100 MG CAP PO SCH ×2 (09:00→21:00)
[2021-11-17] MEDS: [UNRECOGNIZED DRUG - OTHER] NAS SCH (09:00)
[2021-11-17] MEDS: HEPARIN 5000 UNIT/ML 1 ML VIAL SQ SCH ×3 (09:00→22:46)
[2021-11-17] MEDS: METOPROLOL TAR 50 MG TAB PO SCH ×2 (09:00→22:26)
[2021-11-17] MEDS: AZELASTINE NAS SCH (09:00)
[2021-11-17] MEDS: MONTELUKAST 10 MG TAB PO SCH (09:00)
[2021-11-17] MEDS: NEPRO SHAKE 237 ML CAN PO SCH ×3 (09:00→22:27)
[2021-11-17] MEDS: FLUTICASONE NAS SCH (09:00)
[2021-11-17] MEDS ORDERED: VITAMIN D 5,000 UNIT CAP PO SCH (09:00)
[2021-11-17] MEDS ORDERED: EPOETIN ALFA 10,000 UNIT/ML VIAL SQ SCH (09:00)
[2021-11-17] MEDS: INSULIN -REGULAR HUMAN 50 UNIT/0.5 ML ML SQ SCH ×4 (09:04→22:27)
[2021-11-17] MEDS: ASPIRIN 81 MG CHEWABLE TABLET PO SCH (09:06)
[2021-11-17] MEDS: VITAMIN D 5,000 UNIT CAP PO SCH (09:06)
[2021-11-17] MEDS: PANTOPRAZOLE 40MG TABLET PO SCH (09:06)
[2021-11-17] MEDS: dexAMETHasone 4 MG TAB PO SCH ×2 (09:07→22:25)
[2021-11-17] MEDS: CALCITROL 0.25 MCG CAP PO SCH (09:07)
[2021-11-17] MEDS: BUPROPRION HCL S.R. 150MG TAB PO SCH (09:08)
[2021-11-17] MEDS: COENZYME Q10- 200 MG CAP PO SCH (09:08)
[2021-11-17] MEDS ORDERED: levoFLOXacin 500 MG TAB PO ONE (18:00)
[2021-11-17] MEDS: [UNRECOGNIZED DRUG - OTHER] PO SCH (21:00)
[2021-11-17] MEDS: ACETAMINOPHEN PO SCH (21:00)
[2021-11-17] MEDS: CHLORPHENIRAMINE PO SCH (21:00)
[2021-11-17] MEDS: CITALOPRAM 10 MG TABLET PO SCH (22:25)
[2021-11-17] MEDS: DULOXETINE 30 MG CAP PO SCH (22:25)
[2021-11-17] MEDS: MELATONIN 3 MG TABLET PO SCH (22:26)
[2021-11-17] MEDS: ATORVASTATIN 80 MG TAB PO SCH (22:26)
[2021-11-17] MEDS: GABAPENTIN 300 MG CAP PO SCH (22:27)
--- NOTE | 2021-11-18 06:17 | P.PN ---
Date of Service: 11/18/21 Subjective: No significant change in symptoms minimal improvement after dialysis echo for today states he was weak and fell backwards trying to get out of bed today ROS: 10 point ROS as noted above, otherwise negative Physical exam GEN: Alert, oriented, dyspneic HEENT: Normal conjunctiva, sclera anicteric CV: Regular rate and rhythm, no edema Pulm: Dyspneic/out of breath when talking, diminished bilaterally ABD: Soft, nontender, nondistended Neuro: Speech is slow due to dyspnea, strength 5/5 in all 4 extremities Problem List Dyspnea Syncope small right pleural effusion ESRD on HD MWF Diabetes mellitus type 2insulin-dependent CAD status post CABG 2019 Hypertension Hyperlipidemia Unclear etiology of dyspnea over the last [address] without any evidence to suggest level of dyspnea, no PE, small b/l loculated pleural effusions Pulmonology consulted, added low-dose Decadron on 11/16 Also with few episodes of falls, with what sounds like loss of consciousness with [address] abdomen/pelvis negative for any acute process cannot obtain secondary to patient 100 pound weight loss, early satiety Echocardiogram ordered for tomorrow Cardiology consulted, to evaluate for cardiac etiology VTE: Heparin Code: Full Dispo: Anticipate DC home, in 1-2 days Time Spent Managing Pts Care (In Minutes): 35
[2021-11-18 07:03] LABS: Absolute Lymphocytes (CBC) 1.4 K/uL (0.7-4.9); Hematocrit 41.1 % (39.6-49.0); Lymphocytes % 8.2 % (15.3-44.8); MPV 8.9 fL (7.6-11.3); RBC Red Blood Cell Count 4.22 M/uL (4.33-5.43)
--- NOTE | 2021-11-18 07:05 | RAD REPORT ---
EXAM DESCRIPTION: RAD - Chest Single View - 11/18/2021 6:31 am CLINICAL HISTORY: dyspnea COMPARISON: November 15 chest film, November 16 CT abdomen study TECHNIQUE: AP portable chest image was obtained 11/18/2021 6:31 am . FINDINGS: No new mass or consolidation. Interstitial stranding costophrenic angle blunting at the [facility] lung base match the comparison study. CT study showed minimal probably loculated bilateral grade and center marker ior lung base pleural effusions. Sternotomy wires are in place. Heart and vasculature are normal. No pneumothorax. No acute bony abnormality seen. No acute aortic fi ndings suspected. IMPRESSION: No change the lung base pleural and parenchymal opacities, worse on the right. No new or progressive finding.
[2021-11-18 07:23] LABS: Albumin 2.6 g/dL (3.4-5.0); Bilirubin Total 0.3 mg/dL (0.2-1.0); Magnesium 2.5 mg/dL (1.8-2.4); Phosphorus 5.1 mg/dL (2.5-4.9); Potassium 4.3 mmol/L (3.5-5.1); Protein, Total 8.4 g/dL (6.4-8.2)
[2021-11-18] MEDS: dexAMETHasone 4 MG TAB PO SCH ×2 (07:57→20:53)
[2021-11-18] MEDS: CALCITROL 0.25 MCG CAP PO SCH (07:58)
[2021-11-18] MEDS: BUPROPRION HCL S.R. 150MG TAB PO SCH (07:58)
[2021-11-18] MEDS: VITAMIN D 5,000 UNIT CAP PO SCH (07:58)
[2021-11-18] MEDS: ASPIRIN 81 MG CHEWABLE TABLET PO SCH (07:58)
[2021-11-18] MEDS: HEPARIN 5000 UNIT/ML 1 ML VIAL SQ SCH ×2 (07:58→20:54)
[2021-11-18] MEDS: PANTOPRAZOLE 40MG TABLET PO SCH (07:58)
[2021-11-18] MEDS: COENZYME Q10- 200 MG CAP PO SCH (07:58)
[2021-11-18] MEDS: DOCUSATE NA 100 MG CAP PO SCH ×2 (07:59→20:53)
[2021-11-18] MEDS: HOME MED 1 EA UNK (Budesonide/Formoterol Fumarate [Symbicort 160-4.5 Mcg Inhaler] 10.2 GM IH SCH ×2 (07:59→20:42)
[2021-11-18] MEDS: MONTELUKAST 10 MG TAB PO SCH (08:00)
[2021-11-18] MEDS: NEPRO SHAKE 237 ML CAN PO SCH ×3 (08:00→20:54)
[2021-11-18] MEDS: FLUTICASONE NAS SCH (08:07)
[2021-11-18] MEDS: AZELASTINE NAS SCH (08:07)
[2021-11-18] MEDS: [UNRECOGNIZED DRUG - OTHER] NAS SCH (08:07)
[2021-11-18] MEDS: INSULIN -REGULAR HUMAN 50 UNIT/0.5 ML ML SQ SCH ×4 (08:12→20:54)
[2021-11-18] MEDS ORDERED: levoFLOXacin 250 MG TAB PO SCH (09:00)
[2021-11-18] MEDS: METOPROLOL TAR 50 MG TAB PO SCH ×2 (09:00→20:59)
[2021-11-18] MEDS ORDERED: levoFLOXacin 250 MG TAB PO ONE (10:00)
[2021-11-18 10:32] LABS: Blood Morphology Comment NOT SEEN (NOT SEEN); Platelet Estimate ADEQ; White Blood Cell Scan OK (OK)
--- NOTE | 2021-11-18 11:56 | P.PN ---
Subjective Date of Service: 11/18/21 Chief Complaint: Dyspnea Subjective: Improving (Patient feels slightly better however complains of weakness still has significant shortness of breath better on oxygen) Review of Systems General: Weakness Respiratory: Shortness of Breath Physical Examination - Vital Signs Temperature: 96.2 F Blood Pressure: 134/72 Pulse: 84 Respirations: 19 Pulse Ox (%): 100 - Physical Exam General: Alert, In no apparent distress, Mild distress Neck: Supple Respiratory: Clear to auscultation bilaterally Cardiovascular: No edema, Regular rate/rhythm, Normal S1 S2 Assessment And Plan - Current Problems (Diagnosis) (1) SOB (shortness of breath) Onset Date: 09/01/16 Current Visit: No Status: Acute Plan: Patient admitted with dyspnea patient does have bilateral pleural effusions appear to be chronic and loculated more so on the left lower lobe is to have a rather thickened ventricle echocardiogram is pending patient has had dialysis patient admits that is better when on oxygen echocardiogram is pending CT scan reviewed blood pressure stable no obvious weakness of lower extremities ABGs ordered continue with steroids cultures are so far negative
--- NOTE | 2021-11-18 12:04 | CON ---
Date of Consultation: 11/16/2021 Reason For Consultation: Shortness of breath. History Of Present Illness: Mr. Seth is a 66. He was admitted to Dr. Tafoya for shortness of nba th. He has an extensive history. He has a history of CABG in April [address] Jones. He has a h istory of diabetes, hypertension, dyslipidemia, end-stage renal disease on hemodialysis. He comes in with shortness of breath. He was found on the chest x-ray to have a [id number] pleural effus ion. CT of the pelvis and abdomen was negative. CT angiogram of the chest showed negative pulmonary embolus and LVH. Mr. Seth after surgery underwent thoracentesis of the right lung and he has als o had a history of pericardiocentesis. He appears to be volume overloaded at this point. Denied any chest pain, palpitation, fever, chills, syncope. Allergies: INCLUDE ALEVE, NORVASC, CEFTIN, CODEINE, HYDROCODONE, LATEX, SULFA, AND TRAMADOL. Medications: At home include Lipitor, Plavix, Tresiba, Lasix 80 mg, insulin, aspirin, metoprolol, Ne urontin. Physical Examination: General: He appeared to be in mild respiratory distress, but does improve. Vital Signs: Stable. He was afebrile. He was in sinus rhythm. HEENT: Negative. Neck: Supple with no bruit. Chest: Revealed decreased breath sound on the right side. No rales. Cardiac: Revealed a regular rhythm and rate. No murmurs, gallops, or rubs. Abdomen: Benign. Extremities: Revealed no clubbing, cyanosis, or edema. Diagnostic Data: As stated earlier. BNP was 11,000. Impression And Plan: 1.Volume overload secondary to renal failure. I do not think we are dealing with congestive heart f ailure at this point. I agree with steroids and inhalers. He needs to be dialyzed. Echocardiogram is pending. 2.History of coronary artery bypass graft, status post thoracentesis, status post pericardiocentesis . I think that is stable. 3.End-stage renal disease, on hemodialysis. Nephrology is following. 4.Diabetes, well controlled. 5.Hypertension, well controlled. 6.Dyslipidemia, well controlled. 7.Multiple allergies. We will continue to follow him along in the hospital. No change in medical t herapy at this point. NUSRAT/SAURABH Voice ID: [id number] Report ID: [id number]
[2021-11-18 14:21] LABS: Arterial Blood Carboxyhemoglob 0.8 % (0-1.5); Blood Gas Oxyhemoglobin 93.6 % (94-97); Blood O2 Saturation 95.5 % (92-98.5)
--- NOTE | 2021-11-18 20:17 | P.PN ---
Date of Service: 11/18/21 Vital Signs Temp Pulse Resp BP Pulse Ox 96.6 F L 83 20 137/74 100 11/18/21 16:00 11/18/21 16:00 11/18/21 16:00 11/18/21 16:00 11/18/21 16:00 Medications Albuterol Sulfate (Albuterol 2.5 Mg/3 Ml Neb Jeanne) 2.5 mg NEB Q6HP PRN PRN Reason: SHORTNESS OF BREATH Aspirin (Aspirin 81 Mg Chewable Tablet) 81 mg PO DAILY [facility] Last Admin: 11/18/21 07:58 Dose: 81 mg Documented by: Atorvastatin Calcium (Atorvastatin 80 Mg Tab) 80 mg PO BEDTIME [facility] Last Admin: 11/17/21 22:26 Dose: 80 mg Documented by: Bupropion HCl (Buproprion Hcl S.R. 150mg Tab) 150 mg PO DAILY [facility] Last Admin: 11/18/21 07:58 Dose: 150 mg Documented by: Calcitriol (Calcitrol 0.25 Mcg Cap) 0.5 mcg PO DAILY [facility] Last Admin: 11/18/21 07:58 Dose: 0.5 mcg Documented by: Cholecalciferol (Vitamin D 5,000 Unit Cap) 5,000 unit PO DAILY [facility] Last Admin: 11/18/21 07:58 Dose: 5,000 unit Documented by: Citalopram Hydrobromide (Citalopram 10 Mg Tablet) 20 mg PO BEDTIME [facility] Last Admin: 11/17/21 22:25 Dose: 20 mg Documented by: Clopidogrel Bisulfate (Clopidogrel 75 Mg Tablet) 75 mg PO MoWeFr [facility] Last Admin: 11/15/21 22:58 Dose: 75 mg Documented by: Coenzyme Q10 (Coenzyme Q10- 200 Mg Cap) 200 mg PO DAILY [facility] Last Admin: 11/18/21 07:58 Dose: 200 mg Documented by: Dexamethasone (Dexamethasone 4 Mg Tab) 4 mg PO BID [facility] Last Admin: 11/18/21 07:57 Dose: 4 mg Documented by: Docusate Sodium (Docusate Na 100 Mg Cap) 100 mg PO BID [facility] Last Admin: 11/18/21 07:59 Dose: Not Given Documented by: Duloxetine HCl (Duloxetine 30 Mg Cap) 60 mg PO BEDTIME [facility] Last Admin: 11/17/21 22:25 Dose: 60 mg Documented by: Enteral Nutritional Formula (Nepro Shake 237 Ml Can) 237 ml PO TID [facility] Last Admin: 11/18/21 13:05 Dose: Not Given Documented by: Gabapentin (Gabapentin 300 Mg Cap) 300 mg PO BEDTIME [facility] Last Admin: 11/17/21 22:27 Dose: 300 mg Documented by: Heparin Sodium (Porcine) (Heparin 5000 Unit/Ml 1 Ml Vial) 5,000 unit SQ Q12HR [facility] Last Admin: 11/18/21 07:58 Dose: 5,000 unit Documented by: Heparin Sodium (Porcine) (Heparin 1,000 Unit/Ml Vial) 6,000 unit IV EVERY HD PRN PRN Reason: AFTER EACH Home Med (Acetaminophen/Chlorpheniramine [Coricidin Hbp Cold-Flu Tablet]) 1 tab PO BEDTIME [facility] Last Admin: 11/17/21 21:00 Dose: Not Given Documented by: Home Med (Azelastine/Fluticasone [Azelastin-Flutic 137-50mcg Spr]) 1 spray JAVIER DAILY [facility] Last Admin: 11/18/21 08:07 Dose: Not Given Documented by: Home Med (Budesonide/Formoterol Fumarate [Symbicort 160-4.5 Mcg Inhaler]) 2 puff IH BID [facility] Last Admin: 11/18/21 07:59 Dose: Not Given Documented by: Albumin Human (Albumin 25%) 50 mls @ 100 mls/hr IV EVERY HD [facility] Insulin Human Regular (Insulin -Regular Human 50 Unit/0.5 Ml Ml) 0 unit SQ ACHS [facility]; Protocol Last Admin: 11/18/21 17:11 Dose: 5 unit Documented by: Ipratropium [place] (Ipratropium Brom 0.5mg/2.5ml) 0.5 mg NEB [id number] PRN PRN Reason: WHEEZING Levofloxacin (Levofloxacin 500 Mg Tab) 500 mg PO Q48H [facility]; Protocol Mannitol (Mannitol 25% 12.5 Gm/50 Ml Vial) 12.5 gm IV EVERY HD PRN PRN Reason: Titrate to SBP (MUST DEFINE) Melatonin (Melatonin 3 Mg Tablet) 3 mg PO BEDTIME [facility] Last Admin: 11/17/21 22:26 Dose: 3 mg Documented by: Metoprolol Tartrate (Metoprolol Tar 50 Mg Tab) 50 mg PO BID [facility] Last Admin: 11/18/21 09:00 Dose: Not Given Documented by: Montelukast Sodium (Montelukast 10 Mg Tab) 10 mg PO DAILY [facility] Last Admin: 11/18/21 08:00 Dose: 10 mg Documented by: Ondansetron HCl (Ondansetron 4 Mg/2 Ml Vial) 4 mg IV Q6HP PRN PRN Reason: NAUSEA / VOMITING Last Admin: 11/16/21 15:47 Dose: 4 mg Documented by: Pantoprazole Sodium (Pantoprazole 40mg Tablet) 40 mg PO DAILY [facility]; Protocol Last Admin: 11/18/21 07:58 Dose: 40 mg Documented by: Sodium Chloride (Flush Normal Saline 10 Ml) 10 ml IV BID [facility] Last Admin: 11/18/21 08:00 Dose: 10 ml Documented by: Microbiology Results 11/15/21 16:51 Blood - Blood Aerobic Blood Culture - Preliminary No growth in 24 hours. 11/15/21 16:51 Blood - Blood Anaerobic Blood Culture - Preliminary No growth in 24 hours. 11/15/21 16:35 Blood - Blood Aerobic Blood Culture - Preliminary No growth in 24 hours. 11/15/21 16:35 Blood - Blood Anaerobic Blood Culture - Preliminary No growth in 24 hours. Assessment/ Plan: Nephrology Dyspnea No chest pain Weakness No acute events overnight Vitals, medications, blood work and imaging reviewed in the chart. General: Oriented x3, Cooperative, Mild distress HEENT: Atraumatic Neck: Supple Respiratory: CTA Cardiovascular: Regular rate/rhythm, Edema Gastrointestinal: Soft and benign, Non-distended Musculoskeletal: No clubbing, No contractures Integumentary: No rashes, No cyanosis Neurological: Normal speech Laboratory Data (last 24 hrs) 11/16/21 06:04: Sodium 138, Potassium 3.4 L, BUN 17, Creatinine 3.92 H, Glucose 134 H, Magnesium 2.0, Total Bilirubin 0.4, AST 19, ALT 26, Alkaline Phosphatase 173 H 11/16/21 06:04: WBC 7.80 D, Hgb 12.4 L, Hct 38.0 L, Plt Count 253 Imagings Data: EXAM DESCRIPTION: [facility] Single View11/15/2021 5:28 pm CLINICAL HISTORY: Shortness of breath COMPARISON: 2020 FINDINGS: Small to moderate right pleural effusion suspected with basilar atelectasis. Left lung appears clear of acute infiltrate. Heart is mildly enlarged EXAM DESCRIPTION: CT - Chest For Pe Angio - 11/16/2021 10:53 am CLINICAL HISTORY: r/o PEchest pain, shortness of breath COMPARISON: Chest Abd Pelvis Wo Con dated 06/25/2020; Thorax Wo Con dated 09/01/2016 TECHNIQUE: Dynamically enhanced 2 mm thick images of the chest were obtained during administration of approximately 150mL Isovue 370 IV contrast. Coronal and oblique MIP reconstruction images were generated and reviewed. Exam utilizes a protocol to evaluate the pulmonary arterial tree. All CT scans are performed using dose optimization technique as appropriate and may include automated exposure control or mA/KV adjustment according to patient size. FINDINGS: No pulmonary emboli are identified. Contrast density was not optimal but was diagnostic to exclude all but far peripheral pulmonary emboli. The aorta as imaged shows no acute or suspicious finding. No pericardial thickening or effusion. Left ventricular myocardium does appear to be thickened. CT sensitivity is limited. Follow-up cardiac echo could be performed as warranted. Small bilateral pleural effusions are present. There is lung parenchymal opacification posterior lower left lung field that is more likely atelectasis than infiltrate. The left pleural effusion may well be loculated. Right pleural effusion volume is similar to the 2019 study and is probably loculated as well. Areas of atelectasis are present. There is scarred lung parenchyma. No pneumothorax. No mediastinal or hilar suspicious masses. No chest wall masses or abnormal axillary lymphadenopathy. IMPRESSION: No pulmonary emboli identified. Bilateral small pleural effusions with both effusions probably loculated. Bilateral lung parenchymal opacification abutting the pleural effusions is favored to be atelectasis rather than infiltrate. Correlation can be made with any clinical or laboratory findings for pneumonia. Suspected left ventricular myocardial hypertrophy. CT sensitivity is limited. Cardiac echo could be performed to confirm or exclude wall hypertrophy. Conclusions/Impression: ESRD -HD TIW Hypokalemia -Encourage nutrition HTN with CKD/ CHF -Continue Metoprolol Diastolic CHF, A/C -HD with UF -Continue Metoprolol -Echocardiogram pending DM II with CKD -RISS Moderate malnutrition -Continue Nepro Anemia in CKD -Continue Retacrit CKD MBD -Continue Calcitriol
[2021-11-18] MEDS: CHLORPHENIRAMINE PO SCH (20:42)
[2021-11-18] MEDS: [UNRECOGNIZED DRUG - OTHER] PO SCH (20:42)
[2021-11-18] MEDS: ACETAMINOPHEN PO SCH (20:42)
[2021-11-18] MEDS: CITALOPRAM 10 MG TABLET PO SCH (20:53)
[2021-11-18] MEDS: DULOXETINE 30 MG CAP PO SCH (20:53)
[2021-11-18] MEDS: MELATONIN 3 MG TABLET PO SCH (20:54)
[2021-11-18] MEDS: GABAPENTIN 300 MG CAP PO SCH (20:54)
[2021-11-18] MEDS: ATORVASTATIN 80 MG TAB PO SCH (20:54)
[2021-11-18] MEDS: CLOPIDOGREL 75 MG TABLET PO SCH (21:14)
[2021-11-19 07:27] LABS: Absolute Lymphocytes (CBC) 1.1 K/uL (0.7-4.9); Hematocrit 36.5 % (39.6-49.0); Lymphocytes % 6.8 % (15.3-44.8); MPV 8.7 fL (7.6-11.3); RBC Red Blood Cell Count 3.73 M/uL (4.33-5.43)
[2021-11-19 07:48] LABS: Albumin 2.4 g/dL (3.4-5.0); Bilirubin Total 0.3 mg/dL (0.2-1.0); Magnesium 2.7 mg/dL (1.8-2.4); Potassium 4.7 mmol/L (3.5-5.1); Protein, Total 7.2 g/dL (6.4-8.2)
[2021-11-19] MEDS: COENZYME Q10- 200 MG CAP PO SCH (08:17)
[2021-11-19] MEDS: BUPROPRION HCL S.R. 150MG TAB PO SCH (08:17)
[2021-11-19] MEDS: PANTOPRAZOLE 40MG TABLET PO SCH (08:18)
[2021-11-19] MEDS: VITAMIN D 5,000 UNIT CAP PO SCH (08:18)
[2021-11-19] MEDS: CALCITROL 0.25 MCG CAP PO SCH (08:18)
[2021-11-19] MEDS: HEPARIN 5000 UNIT/ML 1 ML VIAL SQ SCH ×2 (08:18→20:33)
[2021-11-19] MEDS: MONTELUKAST 10 MG TAB PO SCH (08:18)
[2021-11-19] MEDS: dexAMETHasone 4 MG TAB PO SCH ×2 (08:18→20:34)
[2021-11-19] MEDS: ASPIRIN 81 MG CHEWABLE TABLET PO SCH (08:18)
[2021-11-19] MEDS: HOME MED 1 EA UNK (Budesonide/Formoterol Fumarate [Symbicort 160-4.5 Mcg Inhaler] 10.2 GM IH SCH ×2 (08:19→20:34)
[2021-11-19] MEDS: NEPRO SHAKE 237 ML CAN PO SCH ×3 (08:19→20:36)
[2021-11-19] MEDS: [UNRECOGNIZED DRUG - OTHER] NAS SCH (08:19)
[2021-11-19] MEDS: FLUTICASONE NAS SCH (08:19)
[2021-11-19] MEDS: DOCUSATE NA 100 MG CAP PO SCH ×2 (08:19→20:33)
[2021-11-19] MEDS: METOPROLOL TAR 50 MG TAB PO SCH ×2 (08:19→20:34)
[2021-11-19] MEDS: AZELASTINE NAS SCH (08:19)
[2021-11-19] MEDS: INSULIN -REGULAR HUMAN 50 UNIT/0.5 ML ML SQ SCH ×4 (08:20→20:36)
[2021-11-19] MEDS ORDERED: ALBUTEROL 2.5 MG/3 ML NEB SOL NEB PRN (13:00)
--- NOTE | 2021-11-19 14:31 | P.PN ---
Subjective Date of Service: 11/19/21 Chief Complaint: Dyspnea Patient reports no major changes from yesterday. He still complains of shortness of breath especially with talking. He is currently maintained on 2 L oxygen by nasal cannula. 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 Patient has small b/l loculated pleural effusions. Seen by pulmonology. Continue low-dose dexamethasone. Nephrology is following and planning for hemodialysis today. Patient probably need dry weight adjustment. Also with few episodes of falls. CT abdomen/pelvis negative for any acute process. Echocardiogram done and the result is pending. Seen by cardiology, further management pending echo. Patient shortness of breath likely related to end-stage renal disease. Patient is receiving PT. VTE: Heparin Code: Full Dispo: May need SNF placement.
--- NOTE | 2021-11-19 18:31 | P.PN ---
Date of Service: 11/19/21 Vital Signs Temp Pulse Resp BP Pulse Ox 97.6 F 90 16 116/60 100 11/19/21 16:00 11/19/21 16:00 11/19/21 16:00 11/19/21 16:00 11/19/21 16:00 Medications Albuterol Sulfate (Albuterol 2.5 Mg/3 Ml Neb Jeanne) 2.5 mg NEB [id number] PRN PRN Reason: SHORTNESS OF BREATH Aspirin (Aspirin 81 Mg Chewable Tablet) 81 mg PO DAILY [facility] Last Admin: 11/19/21 08:18 Dose: 81 mg Documented by: Atorvastatin Calcium (Atorvastatin 80 Mg Tab) 80 mg PO BEDTIME [facility] Last Admin: 11/18/21 20:54 Dose: 80 mg Documented by: Bupropion HCl (Buproprion Hcl S.R. 150mg Tab) 150 mg PO DAILY [facility] Last Admin: 11/19/21 08:17 Dose: 150 mg Documented by: Calcitriol (Calcitrol 0.25 Mcg Cap) 0.5 mcg PO DAILY [facility] Last Admin: 11/19/21 08:18 Dose: 0.5 mcg Documented by: Cholecalciferol (Vitamin D 5,000 Unit Cap) 5,000 unit PO DAILY [facility] Last Admin: 11/19/21 08:18 Dose: 5,000 unit Documented by: Citalopram Hydrobromide (Citalopram 10 Mg Tablet) 20 mg PO BEDTIME [facility] Last Admin: 11/18/21 20:53 Dose: 20 mg Documented by: Clopidogrel Bisulfate (Clopidogrel 75 Mg Tablet) 75 mg PO MoWeFr [facility] Last Admin: 11/18/21 21:14 Dose: Not Given Documented by: Coenzyme Q10 (Coenzyme Q10- 200 Mg Cap) 200 mg PO DAILY [facility] Last Admin: 11/19/21 08:17 Dose: 200 mg Documented by: Dexamethasone (Dexamethasone 4 Mg Tab) 4 mg PO BID [facility] Last Admin: 11/19/21 08:18 Dose: 4 mg Documented by: Docusate Sodium (Docusate Na 100 Mg Cap) 100 mg PO BID [facility] Last Admin: 11/19/21 08:19 Dose: Not Given Documented by: Duloxetine HCl (Duloxetine 30 Mg Cap) 60 mg PO BEDTIME [facility] Last Admin: 11/18/21 20:53 Dose: 60 mg Documented by: Enteral Nutritional Formula (Nepro Shake 237 Ml Can) 237 ml PO TID [facility] Last Admin: 11/19/21 13:37 Dose: 237 ml Documented by: Gabapentin (Gabapentin 300 Mg Cap) 300 mg PO BEDTIME [facility] Last Admin: 11/18/21 20:54 Dose: 300 mg Documented by: Heparin Sodium (Porcine) (Heparin 5000 Unit/Ml 1 Ml Vial) 5,000 unit SQ Q12HR [facility] Last Admin: 11/19/21 08:18 Dose: 5,000 unit Documented by: Heparin Sodium (Porcine) (Heparin 1,000 Unit/Ml Vial) 3,000 unit IV EVERY HD PRN PRN Reason: DIALYSIS Home Med (Acetaminophen/Chlorpheniramine [Coricidin Hbp Cold-Flu Tablet]) 1 tab PO BEDTIME [facility] Last Admin: 11/18/21 20:42 Dose: Not Given Documented by: Home Med (Azelastine/Fluticasone [Azelastin-Flutic 137-50mcg Spr]) 1 spray JAVIER DAILY [facility] Last Admin: 11/19/21 08:19 Dose: Not Given Documented by: Home Med (Budesonide/Formoterol Fumarate [Symbicort 160-4.5 Mcg Inhaler]) 2 puff IH BID [facility] Last Admin: 11/19/21 08:19 Dose: Not Given Documented by: Albumin Human (Albumin 25%) 50 mls @ 100 mls/hr IV EVERY HD [facility] Insulin Human Regular (Insulin -Regular Human 50 Unit/0.5 Ml Ml) 0 unit SQ ACHS [facility]; Protocol Last Admin: 11/19/21 16:56 Dose: 5 unit Documented by: Ipratropium [place] (Ipratropium Brom 0.5mg/2.5ml) 0.5 mg NEB [id number] PRN PRN Reason: WHEEZING Levofloxacin (Levofloxacin 500 Mg Tab) 500 mg PO Q48H [facility]; Protocol Mannitol (Mannitol 25% 12.5 Gm/50 Ml Vial) 12.5 gm IV EVERY HD PRN PRN Reason: Titrate to SBP (MUST DEFINE) Melatonin (Melatonin 3 Mg Tablet) 3 mg PO BEDTIME [facility] Last Admin: 11/18/21 20:54 Dose: 3 mg Documented by: Metoprolol Tartrate (Metoprolol Tar 50 Mg Tab) 50 mg PO BID [facility] Last Admin: 11/19/21 08:19 Dose: Not Given Documented by: Montelukast Sodium (Montelukast 10 Mg Tab) 10 mg PO DAILY [facility] Last Admin: 11/19/21 08:18 Dose: 10 mg Documented by: Ondansetron HCl (Ondansetron 4 Mg/2 Ml Vial) 4 mg IV Q6HP PRN PRN Reason: NAUSEA / VOMITING Last Admin: 11/16/21 15:47 Dose: 4 mg Documented by: Pantoprazole Sodium (Pantoprazole 40mg Tablet) 40 mg PO DAILY [facility]; Protocol Last Admin: 11/19/21 08:18 Dose: 40 mg Documented by: Sodium Chloride (Flush Normal Saline 10 Ml) 10 ml IV BID [facility] Last Admin: 11/19/21 08:19 Dose: 10 ml Documented by: Microbiology Results 11/15/21 16:51 Blood - Blood Aerobic Blood Culture - Preliminary No growth in 24 hours. 11/15/21 16:51 Blood - Blood Anaerobic Blood Culture - Preliminary No growth in 24 hours. 11/15/21 16:35 Blood - Blood Aerobic Blood Culture - Preliminary No growth in 24 hours. 11/15/21 16:35 Blood - Blood Anaerobic Blood Culture - Preliminary No growth in 24 hours. Assessment/ Plan: Nephrology Dyspnea No chest pain Weakness No acute events overnight Vitals, medications, blood work and imaging reviewed in the chart. General: Oriented x3, Cooperative, Mild distress HEENT: Atraumatic Neck: Supple Respiratory: CTA Cardiovascular: Regular rate/rhythm, Edema Gastrointestinal: Soft and benign, Non-distended Musculoskeletal: No clubbing, No contractures Integumentary: No rashes, No cyanosis Neurological: Normal speech Laboratory Data (last 24 hrs) 11/16/21 06:04: Sodium 138, Potassium 3.4 L, BUN 17, Creatinine 3.92 H, Glucose 134 H, Magnesium 2.0, Total Bilirubin 0.4, AST 19, ALT 26, Alkaline Phosphatase 173 H 11/16/21 06:04: WBC 7.80 D, Hgb 12.4 L, Hct 38.0 L, Plt Count 253 Imagings Data: EXAM DESCRIPTION: [facility] Single View11/15/2021 5:28 pm CLINICAL HISTORY: Shortness of breath COMPARISON: 2020 FINDINGS: Small to moderate right pleural effusion suspected with basilar atelectasis. Left lung appears clear of acute infiltrate. Heart is mildly enlarged EXAM DESCRIPTION: CT - Chest For Pe Angio - 11/16/2021 10:53 am CLINICAL HISTORY: r/o PEchest pain, shortness of breath COMPARISON: Chest Abd Pelvis Wo Con dated 06/25/2020; Thorax Wo Con dated 09/01/2016 TECHNIQUE: Dynamically enhanced 2 mm thick images of the chest were obtained during administration of approximately 150mL Isovue 370 IV contrast. Coronal and oblique MIP reconstruction images were generated and reviewed. Exam utilizes a protocol to evaluate the pulmonary arterial tree. All CT scans are performed using dose optimization technique as appropriate and may include automated exposure control or mA/KV adjustment according to patient size. FINDINGS: No pulmonary emboli are identified. Contrast density was not optimal but was diagnostic to exclude all but far peripheral pulmonary emboli. The aorta as imaged shows no acute or suspicious finding. No pericardial thickening or effusion. Left ventricular myocardium does appear to be thickened. CT sensitivity is limited. Follow-up cardiac echo could be performed as warranted. Small bilateral pleural effusions are present. There is lung parenchymal opacification posterior lower left lung field that is more likely atelectasis than infiltrate. The left pleural effusion may well be loculated. Right pleural effusion volume is similar to the 2019 study and is probably loculated as well. Areas of atelectasis are present. There is scarred lung parenchyma. No pneumothorax. No mediastinal or hilar suspicious masses. No chest wall masses or abnormal axillary lymphadenopathy. IMPRESSION: No pulmonary emboli identified. Bilateral small pleural effusions with both effusions probably loculated. Bilateral lung parenchymal opacification abutting the pleural effusions is favored to be atelectasis rather than infiltrate. Correlation can be made with any clinical or laboratory findings for pneumonia. Suspected left ventricular myocardial hypertrophy. CT sensitivity is limited. Cardiac echo could be performed to confirm or exclude wall hypertrophy. Conclusions/Impression: ESRD -HD TIW -Acute HD today Hypokalemia -Encourage nutrition HTN with CKD/ CHF -Continue Metoprolol Diastolic CHF, A/C -HD with UF -Continue Metoprolol -Echocardiogram pending DM II with CKD -RISS Moderate malnutrition -Continue Nepro Anemia in CKD -Continue Retacrit CKD MBD -Continue Calcitriol Case reviewed with Dr. Stoddard
[2021-11-19] MEDS: DULOXETINE 30 MG CAP PO SCH (20:32)
[2021-11-19] MEDS: GABAPENTIN 300 MG CAP PO SCH (20:33)
[2021-11-19] MEDS: ATORVASTATIN 80 MG TAB PO SCH (20:33)
[2021-11-19] MEDS: CITALOPRAM 10 MG TABLET PO SCH (20:33)
[2021-11-19] MEDS: ACETAMINOPHEN PO SCH (20:34)
[2021-11-19] MEDS: CHLORPHENIRAMINE PO SCH (20:34)
[2021-11-19] MEDS: MELATONIN 3 MG TABLET PO SCH (20:34)
[2021-11-19] MEDS: [UNRECOGNIZED DRUG - OTHER] PO SCH (20:34)
[2021-11-20 06:14] LABS: Hematocrit 39.2 % (39.6-49.0); Lymphocytes % 6.9 % (15.3-44.8); MPV 8.8 fL (7.6-11.3); RBC Red Blood Cell Count 4.04 M/uL (4.33-5.43)
[2021-11-20 06:43] LABS: Potassium 4.6 mmol/L (3.5-5.1)
--- NOTE | 2021-11-20 07:45 | ECHO ---
HEIGHT: 6 ft 2 in WEIGHT: 229 lb 3.2 oz DATE OF STUDY: 11/19/[address]: Cisco Tafoya MD 2-DIMENSIONAL: YES M.MODE: YES DOPPLER: YES COLOR FLOW: YES TDS: NO PORTABLE: NO DEFINITY: NO BUBBLE STUDY: NO DIAGNOSIS: DYSPNEA, EVALUATE FUNCTION CARDIAC HISTORY: CATHERIZATION: YES SURGERY: YES PROSTHETIC VALVE: NO PACEMAKER: NO MEASUREMENTS (cm) DIASTOLIC (NORMALS) SYSTOLIC (NORMALS) IVSd 1.2 (0.6-1.2) LA Diam 4.6 (1.9-4.0) LVEF 63% LVIDd 5.0 (3.5-5.7) LVIDs 3.3 (2.0-3.5) %FS 34% LVPWd 1.2 (0.6-1.2) Ao Diam 3.1 (2.0-3.7) 2 DIMENSIONAL ASSESSMENT: RIGHT ATRIUM: NORMAL LEFT ATRIUM: NORMAL RIGHT VENTRICLE: NORMAL LEFT VENTRICLE: NORMAL TRICUSPID VALVE: NORMAL MITRAL VALVE: NORMAL PULMONIC VALVE: NORMAL AORTIC VALVE: NORMAL PERICARDIAL EFFUSION: NONE AORTIC ROOT: NORMAL LEFT VENTRICULAR WALL MOTION: NORMAL. DOPPLER/COLOR FLOW: MILD TRICUSPID REGURGITATION. COMMENTS: MILD TRICUSPID REGURGITATION. NORMAL LEFT VENTRICULAR SIZE AND FUNCTION. NO WALL MOTION ABNORMALITY. NO EFFUSION. TECHNOLOGIST: KAREN SELLERS
[2021-11-20] MEDS: MONTELUKAST 10 MG TAB PO SCH (08:47)
[2021-11-20] MEDS: BUPROPRION HCL S.R. 150MG TAB PO SCH (08:47)
[2021-11-20] MEDS: DOCUSATE NA 100 MG CAP PO SCH ×2 (08:48→22:40)
[2021-11-20] MEDS: ASPIRIN 81 MG CHEWABLE TABLET PO SCH (08:48)
[2021-11-20] MEDS: VITAMIN D 5,000 UNIT CAP PO SCH (08:48)
[2021-11-20] MEDS: METOPROLOL TAR 50 MG TAB PO SCH ×2 (08:49→22:40)
[2021-11-20] MEDS: CALCITROL 0.25 MCG CAP PO SCH (08:49)
[2021-11-20] MEDS: dexAMETHasone 4 MG TAB PO SCH (08:49)
[2021-11-20] MEDS: PANTOPRAZOLE 40MG TABLET PO SCH (08:50)
[2021-11-20] MEDS: NEPRO SHAKE 237 ML CAN PO SCH ×3 (08:50→22:42)
[2021-11-20] MEDS: INSULIN -REGULAR HUMAN 50 UNIT/0.5 ML ML SQ SCH ×4 (08:51→22:41)
[2021-11-20] MEDS: FLUTICASONE NAS SCH (08:52)
[2021-11-20] MEDS: [UNRECOGNIZED DRUG - OTHER] NAS SCH (08:52)
[2021-11-20] MEDS: HOME MED 1 EA UNK (Budesonide/Formoterol Fumarate [Symbicort 160-4.5 Mcg Inhaler] 10.2 GM IH SCH ×2 (08:52→21:00)
[2021-11-20] MEDS: AZELASTINE NAS SCH (08:52)
[2021-11-20] MEDS: HEPARIN 5000 UNIT/ML 1 ML VIAL SQ SCH ×2 (08:53→22:42)
[2021-11-20] MEDS: COENZYME Q10- 200 MG CAP PO SCH (08:54)
[2021-11-20] MEDS ORDERED: levoFLOXacin 500 MG TAB PO SCH (09:00)
--- NOTE | 2021-11-20 12:26 | P.PN ---
Subjective Date of Service: 11/20/21 Chief Complaint: Dyspnea No change patient still contain complains of being short of breath very dyspneic on mild exertion unable to ambulate he is lost a lot of weight Review of Systems General: Weakness Respiratory: Shortness of Breath Physical Examination - Vital Signs Temperature: 96.6 F Blood Pressure: 123/66 Pulse: 90 Respirations: 16 Pulse Ox (%): 98 - Physical Exam General: Alert, Moderate distress Respiratory: Clear to auscultation bilaterally Cardiovascular: No edema, Regular rate/rhythm Gastrointestinal: Normal bowel sounds Assessment And Plan - Current Problems (Diagnosis) (1) SOB (shortness of breath) Onset Date: 09/01/16 Current Visit: No Status: Acute Plan: Dyspnea possible myopathy from high doses of statins hold those for now DC steroid patient has normal echo oxygenation satisfactory echo orthostatic blood pressures the possibility that he is having serotonin syndrome I have stopped his Cymbalta and Wellbutrin continue with low-dose gabapentin and duloxetine for now
[2021-11-20] MEDS: IPRATROPIUM BROM 0.5MG/2.5ML NEB PRN ×2 (12:28→19:22)
--- NOTE | 2021-11-20 13:35 | P.PN ---
Subjective Date of Service: 11/20/21 Chief Complaint: Dyspnea Patient report exhaustion but stated shortness of breath is better. More fluid is being pulled off during dialysis. He is currently maintained on 2 L oxygen by nasal cannula. 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 Patient seen by pulmonary and considering polypharmacy contributing to patient's symptoms Patient has small b/l loculated pleural effusions. Continue low-dose dexamethasone. Psychotropic medications scaled down. Nephrology is following and and managing hemodialysis. CT abdomen/pelvis negative for any acute process. Echocardiogram done and the result is unremarkable. Patient shortness of breath likely related to end-stage renal disease. Patient is receiving PT. Planned for rehab placement.
--- NOTE | 2021-11-20 19:46 | P.PN ---
Date of Service: 11/20/21 Vital Signs Temp Pulse Resp BP Pulse Ox 97.1 F 95 H 16 129/68 100 11/20/21 16:00 11/20/21 16:00 11/20/21 16:00 11/20/21 16:00 11/20/21 16:00 Medications Albuterol Sulfate (Albuterol 2.5 Mg/3 Ml Neb Jeanne) 2.5 mg NEB [id number] PRN PRN Reason: SHORTNESS OF BREATH Aspirin (Aspirin 81 Mg Chewable Tablet) 81 mg PO DAILY [facility] Last Admin: 11/20/21 08:48 Dose: 81 mg Documented by: Calcitriol (Calcitrol 0.25 Mcg Cap) 0.5 mcg PO DAILY [facility] Last Admin: 11/20/21 08:49 Dose: 0.5 mcg Documented by: Cholecalciferol (Vitamin D 5,000 Unit Cap) 5,000 unit PO DAILY [facility] Last Admin: 11/20/21 08:48 Dose: 5,000 unit Documented by: Clopidogrel Bisulfate (Clopidogrel 75 Mg Tablet) 75 mg PO MoWeFr [facility] Last Admin: 11/18/21 21:14 Dose: Not Given Documented by: Coenzyme Q10 (Coenzyme Q10- 200 Mg Cap) 200 mg PO DAILY [facility] Last Admin: 11/20/21 08:54 Dose: 200 mg Documented by: Docusate Sodium (Docusate Na 100 Mg Cap) 100 mg PO BID [facility] Last Admin: 11/20/21 08:48 Dose: 100 mg Documented by: Duloxetine HCl (Duloxetine 30 Mg Cap) 60 mg PO BEDTIME [facility] Last Admin: 11/19/21 20:32 Dose: 60 mg Documented by: Enteral Nutritional Formula (Nepro Shake 237 Ml Can) 237 ml PO TID [facility] Last Admin: 11/20/21 13:22 Dose: 237 ml Documented by: Gabapentin (Gabapentin 300 Mg Cap) 300 mg PO BEDTIME [facility] Last Admin: 11/19/21 20:33 Dose: 300 mg Documented by: Heparin Sodium (Porcine) (Heparin 5000 Unit/Ml 1 Ml Vial) 5,000 unit SQ Q12HR [facility] Last Admin: 11/20/21 08:53 Dose: 5,000 unit Documented by: Heparin Sodium (Porcine) (Heparin 1,000 Unit/Ml Vial) 3,000 unit IV EVERY HD PRN PRN Reason: DIALYSIS Home Med (Acetaminophen/Chlorpheniramine [Coricidin Hbp Cold-Flu Tablet]) 1 tab PO BEDTIME [facility] Last Admin: 11/19/21 20:34 Dose: Not Given Documented by: Home Med (Azelastine/Fluticasone [Azelastin-Flutic 137-50mcg Spr]) 1 spray JAVIER DAILY [facility] Last Admin: 11/20/21 08:52 Dose: Not Given Documented by: Home Med (Budesonide/Formoterol Fumarate [Symbicort 160-4.5 Mcg Inhaler]) 2 puff IH BID [facility] Last Admin: 11/20/21 08:52 Dose: Not Given Documented by: Albumin Human (Albumin 25%) 50 mls @ 100 mls/hr IV EVERY HD [facility] Insulin Human Regular (Insulin -Regular Human 50 Unit/0.5 Ml Ml) 0 unit SQ ACHS [facility]; Protocol Last Admin: 11/20/21 16:04 Dose: 7 unit Documented by: Ipratropium Gibbon (Ipratropium Brom 0.5mg/2.5ml) 0.5 mg NEB [id number] PRN PRN Reason: WHEEZING Last Admin: 11/20/21 12:28 Dose: 0.5 mg Documented by: Mannitol (Mannitol 25% 12.5 Gm/50 Ml Vial) 12.5 gm IV EVERY HD PRN PRN Reason: Titrate to SBP (MUST DEFINE) Metoprolol Tartrate (Metoprolol Tar 50 Mg Tab) 50 mg PO BID [facility] Last Admin: 11/20/21 08:49 Dose: 50 mg Documented by: Ondansetron HCl (Ondansetron 4 Mg/2 Ml Vial) 4 mg IV Q6HP PRN PRN Reason: NAUSEA / VOMITING Last Admin: 11/16/21 15:47 Dose: 4 mg Documented by: Pantoprazole Sodium (Pantoprazole 40mg Tablet) 40 mg PO DAILY [facility]; Protocol Last Admin: 11/20/21 08:50 Dose: 40 mg Documented by: Sodium Chloride (Flush Normal Saline 10 Ml) 10 ml IV BID [facility] Last Admin: 11/20/21 08:50 Dose: 10 ml Documented by: Microbiology Results 11/15/21 16:51 Blood - Blood Aerobic Blood Culture - Final No growth in 5 days. 11/15/21 16:51 Blood - Blood Anaerobic Blood Culture - Final No growth in 5 days. 11/15/21 16:35 Blood - Blood Aerobic Blood Culture - Final No growth in 5 days. 11/15/21 16:35 Blood - Blood Anaerobic Blood Culture - Final No growth in 5 days. Assessment/ Plan: Nephrology GARCÍA No chest pain Weakness No acute events overnight Vitals, medications, blood work and imaging reviewed in the chart. General: Oriented x3, Cooperative, Mild distress HEENT: Atraumatic Neck: Supple Respiratory: CTA Cardiovascular: Regular rate/rhythm, Edema Gastrointestinal: Soft and benign, Non-distended Musculoskeletal: No clubbing, No contractures Integumentary: No rashes, No cyanosis Neurological: Normal speech Laboratory Data (last 24 hrs) 11/16/21 06:04: Sodium 138, Potassium 3.4 L, BUN 17, Creatinine 3.92 H, Glucose 134 H, Magnesium 2.0, Total Bilirubin 0.4, AST 19, ALT 26, Alkaline Phosphatase 173 H 11/16/21 06:04: WBC 7.80 D, Hgb 12.4 L, Hct 38.0 L, Plt Count 253 Imagings Data: EXAM DESCRIPTION: RADChest Single View11/15/2021 5:28 pm CLINICAL HISTORY: Shortness of breath COMPARISON: 2020 FINDINGS: Small to moderate right pleural effusion suspected with basilar atelectasis. Left lung appears clear of acute infiltrate. Heart is mildly enlarged EXAM DESCRIPTION: CT - Chest For Pe Angio - 11/16/2021 10:53 am CLINICAL HISTORY: r/o PEchest pain, shortness of breath COMPARISON: Chest Abd Pelvis Wo Con dated 06/25/2020; Thorax Wo Con dated 09/01/2016 TECHNIQUE: Dynamically enhanced 2 mm thick images of the chest were obtained during administration of approximately 150mL Isovue 370 IV contrast. Coronal and oblique MIP reconstruction images were generated and reviewed. Exam utilizes a protocol to evaluate the pulmonary arterial tree. All CT scans are performed using dose optimization technique as appropriate and may include automated exposure control or mA/KV adjustment according to patient size. FINDINGS: No pulmonary emboli are identified. Contrast density was not optimal but was diagnostic to exclude all but far peripheral pulmonary emboli. The aorta as imaged shows no acute or suspicious finding. No pericardial thickening or effusion. Left ventricular myocardium does appear to be thickened. CT sensitivity is limited. Follow-up cardiac echo could be performed as warranted. Small bilateral pleural effusions are present. There is lung parenchymal opacification posterior lower left lung field that is more likely atelectasis than infiltrate. The left pleural effusion may well be loculated. Right pleural effusion volume is similar to the 2020 study and is probably loculated as well. Areas of atelectasis are present. There is scarred lung parenchyma. No pneumothorax. No mediastinal or hilar suspicious masses. No chest wall masses or abnormal axillary lymphadenopathy. IMPRESSION: No pulmonary emboli identified. Bilateral small pleural effusions with both effusions probably loculated. Bilateral lung parenchymal opacification abutting the pleural effusions is favored to be atelectasis rather than infiltrate. Correlation can be made with any clinical or laboratory findings for pneumonia. Suspected left ventricular myocardial hypertrophy. CT sensitivity is limited. Cardiac echo could be performed to confirm or exclude wall hypertrophy. Conclusions/Impression: ESRD -HD TIW -Acute HD tomorrow Hypokalemia -Encourage nutrition HTN with CKD/ CHF -Continue Metoprolol Diastolic CHF, A/C -HD with UF -Continue Metoprolol -Echocardiogram reviewed DM II with CKD -RISS Moderate malnutrition -Continue Nepro Anemia in CKD -Continue Retacrit CKD MBD -Continue Calcitriol Case reviewed with Dr. Stoddard
[2021-11-20] MEDS: [UNRECOGNIZED DRUG - OTHER] PO SCH (21:00)
[2021-11-20] MEDS: CHLORPHENIRAMINE PO SCH (21:00)
[2021-11-20] MEDS: ACETAMINOPHEN PO SCH (21:00)
[2021-11-20] MEDS: GABAPENTIN 300 MG CAP PO SCH (22:39)
[2021-11-20] MEDS: CLOPIDOGREL 75 MG TABLET PO SCH (22:41)
[2021-11-20] MEDS: DULOXETINE 30 MG CAP PO SCH (22:41)
[2021-11-21 05:49] LABS: Absolute Lymphocytes (CBC) 1.1 K/uL (0.7-4.9); Hematocrit 38.8 % (39.6-49.0); Lymphocytes % 8.4 % (15.3-44.8); MPV 8.9 fL (7.6-11.3); RBC Red Blood Cell Count 3.98 M/uL (4.33-5.43)
[2021-11-21 06:12] LABS: Potassium 5.3 mmol/L (3.5-5.1)
[2021-11-21] MEDS: FLUTICASONE NAS SCH (09:00)
[2021-11-21] MEDS: HOME MED 1 EA UNK (Budesonide/Formoterol Fumarate [Symbicort 160-4.5 Mcg Inhaler] 10.2 GM IH SCH ×2 (09:00→19:55)
[2021-11-21] MEDS: NEPRO SHAKE 237 ML CAN PO SCH ×3 (09:00→21:42)
[2021-11-21] MEDS: AZELASTINE NAS SCH (09:00)
[2021-11-21] MEDS: [UNRECOGNIZED DRUG - OTHER] NAS SCH (09:00)
[2021-11-21] MEDS: ASPIRIN 81 MG CHEWABLE TABLET PO SCH (09:30)
[2021-11-21] MEDS: DOCUSATE NA 100 MG CAP PO SCH ×2 (09:30→21:42)
[2021-11-21] MEDS: VITAMIN D 5,000 UNIT CAP PO SCH (09:30)
[2021-11-21] MEDS: COENZYME Q10- 200 MG CAP PO SCH (09:30)
[2021-11-21] MEDS: METOPROLOL TAR 50 MG TAB PO SCH ×2 (09:31→21:42)
[2021-11-21] MEDS: PANTOPRAZOLE 40MG TABLET PO SCH (09:31)
[2021-11-21] MEDS: CALCITROL 0.25 MCG CAP PO SCH (09:31)
[2021-11-21] MEDS: INSULIN -REGULAR HUMAN 50 UNIT/0.5 ML ML SQ SCH ×4 (09:32→21:00)
[2021-11-21] MEDS: HEPARIN 5000 UNIT/ML 1 ML VIAL SQ SCH ×2 (09:33→21:38)
--- NOTE | 2021-11-21 09:58 | PN ---
Date of Progress Note: 11/19/2021 Mr. Seth was admitted to Dr. Tafoya on 11/16/2021 with shortness of breath. He has a history of CA BG, history of diabetes, hypertension, and end-stage renal disease, on hemodialysis, dyslipidemia. Nallely as had thoracentesis and pericardiocentesis in the past. Came in with shortness of breath, more like ly secondary to volume overload from his renal failure. An echocardiogram which was done today 11/19 showed an ejection fraction of 63%. No wall motion abnormalities. No pericardial effusion. Nallely hooks is presently on dialysis. His present medications include aspirin, Lipitor, Plavix, insulin, inhal ers. He is on metoprolol. I agree with his present regimen. No further cardiac recommendation at t his point. We will continue to follow him as needed. He will follow up with me in the office after he gets discharged. NUSRAT/SAURABH Voice ID: [id number] Report ID: [id number]
--- NOTE | 2021-11-21 13:45 | P.PN ---
Subjective Date of Service: 11/21/21 Chief Complaint: Dyspnea No new complaint. Patient states he has been ambulating to the bathroom. He is complaining of shortness of breath and fatigue. Physical Examination - Vital Signs Temperature: 96.7 F Blood Pressure: 141/86 Pulse: 84 Respirations: 16 Pulse Ox (%): 99 - Studies Microbiology Data (last 24 hrs): 11/15/21 16:51 Blood - Blood Aerobic Blood Culture - Final No growth in 5 days. 11/15/21 16:51 Blood - Blood Anaerobic Blood Culture - Final No growth in 5 days. 11/15/21 16:35 Blood - Blood Aerobic Blood Culture - Final No growth in 5 days. 11/15/21 16:35 Blood - Blood Anaerobic Blood Culture - Final No growth in 5 days. 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 Patient seen by pulmonary and considering polypharmacy contributing to patient's symptoms Continue low-dose dexamethasone. Psychotropic medications scaled down. Citalopram and bupropion are on hold. Nephrology is following and and managing hemodialysis. CT abdomen/pelvis negative for any acute process. Echocardiogram done and the result is unremarkable. Patient is receiving PT. Patient has mild hyperkalemia. Hemodialysis per nephrology. Planned for rehab placement.
[2021-11-21] MEDS: IPRATROPIUM BROM 0.5MG/2.5ML NEB PRN (19:08)
--- NOTE | 2021-11-21 19:39 | P.PN ---
Date of Service: 11/21/21 Vital Signs Temp Pulse Resp BP Pulse Ox 97.1 F 84 16 97/58 L 98 11/21/21 16:00 11/21/21 16:00 11/21/21 16:00 11/21/21 16:00 11/21/21 16:00 Medications Albuterol Sulfate (Albuterol 2.5 Mg/3 Ml Neb Jeanne) 2.5 mg NEB [id number] PRN PRN Reason: SHORTNESS OF BREATH Aspirin (Aspirin 81 Mg Chewable Tablet) 81 mg PO DAILY [facility] Last Admin: 11/21/21 09:30 Dose: 81 mg Documented by: Calcitriol (Calcitrol 0.25 Mcg Cap) 0.5 mcg PO DAILY [facility] Last Admin: 11/21/21 09:31 Dose: 0.5 mcg Documented by: Cholecalciferol (Vitamin D 5,000 Unit Cap) 5,000 unit PO DAILY [facility] Last Admin: 11/21/21 09:30 Dose: 5,000 unit Documented by: Clopidogrel Bisulfate (Clopidogrel 75 Mg Tablet) 75 mg PO MoWeFr [facility] Last Admin: 11/20/21 22:41 Dose: 75 mg Documented by: Coenzyme Q10 (Coenzyme Q10- 200 Mg Cap) 200 mg PO DAILY [facility] Last Admin: 11/21/21 09:30 Dose: 200 mg Documented by: Docusate Sodium (Docusate Na 100 Mg Cap) 100 mg PO BID [facility] Last Admin: 11/21/21 09:30 Dose: 100 mg Documented by: Duloxetine HCl (Duloxetine 30 Mg Cap) 60 mg PO BEDTIME [facility] Last Admin: 11/20/21 22:41 Dose: 60 mg Documented by: Enteral Nutritional Formula (Nepro Shake 237 Ml Can) 237 ml PO TID [facility] Last Admin: 11/21/21 13:42 Dose: 237 ml Documented by: Gabapentin (Gabapentin 300 Mg Cap) 300 mg PO BEDTIME [facility] Last Admin: 11/20/21 22:39 Dose: 300 mg Documented by: Heparin Sodium (Porcine) (Heparin 5000 Unit/Ml 1 Ml Vial) 5,000 unit SQ Q12HR [facility] Last Admin: 11/21/21 09:33 Dose: 5,000 unit Documented by: Heparin Sodium (Porcine) (Heparin 1,000 Unit/Ml Vial) 3,000 unit IV EVERY HD PRN PRN Reason: DIALYSIS Home Med (Acetaminophen/Chlorpheniramine [Coricidin Hbp Cold-Flu Tablet]) 1 tab PO BEDTIME [facility] Last Admin: 11/20/21 21:00 Dose: Not Given Documented by: Home Med (Azelastine/Fluticasone [Azelastin-Flutic 137-50mcg Spr]) 1 spray JAVIER DAILY [facility] Last Admin: 11/21/21 09:00 Dose: Not Given Documented by: Home Med (Budesonide/Formoterol Fumarate [Symbicort 160-4.5 Mcg Inhaler]) 2 puff IH BID [facility] Last Admin: 11/21/21 09:00 Dose: Not Given Documented by: Albumin Human (Albumin 25%) 50 mls @ 100 mls/hr IV EVERY HD [facility] Insulin Human Regular (Insulin -Regular Human 50 Unit/0.5 Ml Ml) 0 unit SQ ACHS [facility]; Protocol Last Admin: 11/21/21 16:35 Dose: 3 unit Documented by: Ipratropium Allyn (Ipratropium Brom 0.5mg/2.5ml) 0.5 mg NEB [id number] PRN PRN Reason: WHEEZING Last Admin: 11/20/21 19:22 Dose: 0.5 mg Documented by: Mannitol (Mannitol 25% 12.5 Gm/50 Ml Vial) 12.5 gm IV EVERY HD PRN PRN Reason: Titrate to SBP (MUST DEFINE) Metoprolol Tartrate (Metoprolol Tar 50 Mg Tab) 50 mg PO BID [facility] Last Admin: 11/21/21 09:31 Dose: 50 mg Documented by: Ondansetron HCl (Ondansetron 4 Mg/2 Ml Vial) 4 mg IV Q6HP PRN PRN Reason: NAUSEA / VOMITING Last Admin: 11/16/21 15:47 Dose: 4 mg Documented by: Pantoprazole Sodium (Pantoprazole 40mg Tablet) 40 mg PO DAILY [facility]; Protocol Last Admin: 11/21/21 09:31 Dose: 40 mg Documented by: Sodium Chloride (Flush Normal Saline 10 Ml) 10 ml IV BID [facility] Last Admin: 11/21/21 09:00 Dose: 10 ml Documented by: Microbiology Results 11/15/21 16:51 Blood - Blood Aerobic Blood Culture - Final No growth in 5 days. 11/15/21 16:51 Blood - Blood Anaerobic Blood Culture - Final No growth in 5 days. 11/15/21 16:35 Blood - Blood Aerobic Blood Culture - Final No growth in 5 days. 11/15/21 16:35 Blood - Blood Anaerobic Blood Culture - Final No growth in 5 days. Assessment/ Plan: Nephrology GARCÍA No chest pain Weakness and fatigue No acute events overnight Vitals, medications, blood work and imaging reviewed in the chart. General: Oriented x3, Cooperative, Mild distress HEENT: Atraumatic Neck: Supple Respiratory: CTA Cardiovascular: Regular rate/rhythm, Edema Gastrointestinal: Soft and benign, Non-distended Musculoskeletal: No clubbing, No contractures Integumentary: No rashes, No cyanosis Neurological: Normal speech Laboratory Data (last 24 hrs) 11/16/21 06:04: Sodium 138, Potassium 3.4 L, BUN 17, Creatinine 3.92 H, Glucose 134 H, Magnesium 2.0, Total Bilirubin 0.4, AST 19, ALT 26, Alkaline Phosphatase 173 H 11/16/21 06:04: WBC 7.80 D, Hgb 12.4 L, Hct 38.0 L, Plt Count 253 Imagings Data: EXAM DESCRIPTION: RADChest Single View11/15/2021 5:28 pm CLINICAL HISTORY: Shortness of breath COMPARISON: 2020 FINDINGS: Small to moderate right pleural effusion suspected with basilar atelectasis. Left lung appears clear of acute infiltrate. Heart is mildly enlarged EXAM DESCRIPTION: CT - Chest For Pe Angio - 11/16/2021 10:53 am CLINICAL HISTORY: r/o PEchest pain, shortness of breath COMPARISON: Chest Abd Pelvis Wo Con dated 06/25/2020; Thorax Wo Con dated 09/01/2016 TECHNIQUE: Dynamically enhanced 2 mm thick images of the chest were obtained during administration of approximately 150mL Isovue 370 IV contrast. Coronal and oblique MIP reconstruction images were generated and reviewed. Exam utilizes a protocol to evaluate the pulmonary arterial tree. All CT scans are performed using dose optimization technique as appropriate and may include automated exposure control or mA/KV adjustment according to patient size. FINDINGS: No pulmonary emboli are identified. Contrast density was not optimal but was diagnostic to exclude all but far peripheral pulmonary emboli. The aorta as imaged shows no acute or suspicious finding. No pericardial thickening or effusion. Left ventricular myocardium does appear to be thickened. CT sensitivity is limited. Follow-up cardiac echo could be performed as warranted. Small bilateral pleural effusions are present. There is lung parenchymal opacification posterior lower left lung field that is more likely atelectasis than infiltrate. The left pleural effusion may well be loculated. Right pleural effusion volume is similar to the 2020 study and is probably loculated as well. Areas of atelectasis are present. There is scarred lung parenchyma. No pneumothorax. No mediastinal or hilar suspicious masses. No chest wall masses or abnormal axillary lymphadenopathy. IMPRESSION: No pulmonary emboli identified. Bilateral small pleural effusions with both effusions probably loculated. Bilateral lung parenchymal opacification abutting the pleural effusions is favored to be atelectasis rather than infiltrate. Correlation can be made with any clinical or laboratory findings for pneumonia. Suspected left ventricular myocardial hypertrophy. CT sensitivity is limited. Cardiac echo could be performed to confirm or exclude wall hypertrophy. Conclusions/Impression: ESRD -HD TIW Hyponatremia -HD TIW Hypokalemia/ Hyperkalemia -HD TIW HTN with CKD/ CHF -Continue Metoprolol Diastolic CHF, A/C -HD with UF -Continue Metoprolol -Echocardiogram reviewed DM II with CKD -RISS Moderate malnutrition -Continue Nepro Anemia in CKD -Continue Retacrit CKD MBD -Continue Calcitriol
[2021-11-21] MEDS: CHLORPHENIRAMINE PO SCH (19:55)
[2021-11-21] MEDS: ACETAMINOPHEN PO SCH (19:55)
[2021-11-21] MEDS: [UNRECOGNIZED DRUG - OTHER] PO SCH (19:55)
[2021-11-21] MEDS: DULOXETINE 30 MG CAP PO SCH (21:41)
[2021-11-21] MEDS: GABAPENTIN 300 MG CAP PO SCH (21:41)
[2021-11-22] MEDS: IPRATROPIUM BROM 0.5MG/2.5ML NEB PRN (01:47)
[2021-11-22 06:46] LABS: Potassium 4.7 mmol/L (3.5-5.1)
[2021-11-22] MEDS: INSULIN -REGULAR HUMAN 50 UNIT/0.5 ML ML SQ SCH ×4 (07:30→21:00)
[2021-11-22] MEDS: FLUTICASONE NAS SCH (09:00)
[2021-11-22] MEDS: [UNRECOGNIZED DRUG - OTHER] NAS SCH (09:00)
[2021-11-22] MEDS: AZELASTINE NAS SCH (09:00)
[2021-11-22] MEDS: NEPRO SHAKE 237 ML CAN PO SCH ×3 (09:00→21:08)
[2021-11-22] MEDS: HOME MED 1 EA UNK (Budesonide/Formoterol Fumarate [Symbicort 160-4.5 Mcg Inhaler] 10.2 GM IH SCH ×2 (09:00→21:00)
[2021-11-22] MEDS: CALCITROL 0.25 MCG CAP PO SCH (10:00)
[2021-11-22] MEDS: PANTOPRAZOLE 40MG TABLET PO SCH (10:01)
[2021-11-22] MEDS: ASPIRIN 81 MG CHEWABLE TABLET PO SCH (10:01)
[2021-11-22] MEDS: VITAMIN D 5,000 UNIT CAP PO SCH (10:02)
[2021-11-22] MEDS: HEPARIN 5000 UNIT/ML 1 ML VIAL SQ SCH ×2 (10:02→21:09)
[2021-11-22] MEDS: COENZYME Q10- 200 MG CAP PO SCH (10:03)
[2021-11-22] MEDS: METOPROLOL TAR 50 MG TAB PO SCH ×2 (10:03→21:07)
[2021-11-22] MEDS: DOCUSATE NA 100 MG CAP PO SCH ×2 (10:03→21:07)
[2021-11-22] MEDS ORDERED: ESZOPICLONE 1 MG TAB PO PRN (10:15)
--- NOTE | 2021-11-22 10:16 | P.PN ---
Subjective Date of Service: 11/22/21 Chief Complaint: Dyspnea Patient is improving he is looking better less anxious complaining of insomnia Review of Systems General: Weakness Respiratory: Shortness of Breath Physical Examination - Vital Signs Temperature: 97.0 F Blood Pressure: 138/78 Pulse: 75 Respirations: 18 Pulse Ox (%): 98 - Physical Exam General: Alert, In no apparent distress, Oriented x3 Respiratory: Clear to auscultation bilaterally Cardiovascular: No edema, Regular rate/rhythm Assessment And Plan - Current Problems (Diagnosis) (1) SOB (shortness of breath) Onset Date: 09/01/16 Current Visit: No Status: Acute Plan: Patient's condition is improving he appears to be less anxious probably serotonergic syndrome polypharmacy peers to be weak oxygenation satisfactory needs physical therapy add Lunesta 2 mg to use at night patient is not on any steroids right now patient states he benefits from ipratropium so have given him scheduled doses discharge planning
--- NOTE | 2021-11-22 12:37 | P.DS ---
Admission Date: 11/16/21 Discharge Date: 11/22/21 Disposition: TRANSFER TO INPATIENT REHAB Discharge Condition: FAIR Reason for Admission: Dyspnea Brief History of Present Illness: 66-year-old male with history of ESRD on HD MWF, diabetes mellitus type 1insulin-dependent, hypertension, COPD and CAD status post CABG presents emergency department for shortness of breath. Patient reports ongoing shortness of breath increasing over the course of the last few weeks, had outpatient thoracentesis for right-sided pleural effusion here on 08/20/2021 cytology was performed which revealed no malignant cells identified approximately 900 cc of reddish-brown fluid removed at that time. Patient was evaluated here in the emergency room today his labs were significant for hemoglobin 13 hematocrit 38.9 creatinine 3.13 GFR 20 glucose 171 BNP 11,476 Covid negative chest x-ray revealed small to moderate right pleural effusion with basilar atelectasis left lung clear. Patient saturating 99 to 100% on room air at this time but norris bjectively feels very short of breath, appears dyspneic speaking in short sentences. Patient without expiratory wheezing. ED provider wishes to admit under observation for further evaluation and management of his dyspnea. Patient also reports significant recent unintentional weight loss. Hospital Course: Problem List Dyspnea Syncope small right pleural effusion ESRD on HD MWF Diabetes mellitus type 2insulin-dependent CAD status post CABG 2020 Hypertension Hyperlipidemia Hospital course. Patient admitted to the medical floor and nephrology consulted. Patient shortness of breath deemed secondary to COPD versus volume overload from ESRD. Shortness of breath likely related to fluid overload from ESRD. Patient also suspected to be deconditioned from recent CABG and pericardial surgery. Imaging that showed bilateral pleural effusions. Patient underwent hemodialysis with a goal to remove more fluid than his baseline. Patient underwent multiple hemodialysis session. Patient seen by pulmonary and placed on bronchodilators and low-dose steroid for possible COPD. Pulmonary Dr. Wright also suspected polypharmacy for multiple antidepressants contributing to patient's symptoms Psychotropic medications scaled down. Citalopram and bupropion were discontinued. CT abdomen/pelvis negative for any acute process. Echocardiogram done and the result is unremarkable. Patient received PT and inpatient rehab recommended Patient accepted to rehab. He is clinically stable for discharge. Vital Signs/Physical Exam: Temp Pulse Resp BP Pulse Ox 97.0 F 75 16 137/69 98 11/22/21 12:00 11/22/21 12:00 11/22/21 12:00 11/22/21 12:00 11/22/21 12:00 General: Alert, In no apparent distress, Oriented x3 HEENT: Mucous membr. moist/pink Neck: JVD not distended Respiratory: Clear to auscultation bilaterally, Normal air movement Cardiovascular: No edema, Regular rate/rhythm, Normal S1 S2 Gastrointestinal: Normal bowel sounds, Soft and benign, Non-distended, No tenderness Musculoskeletal: No swelling Integumentary: No cyanosis Neurological: Normal strength at 5/5 x4 extr Laboratory Data at Discharge: WBC 13.00 K/uL (4.3-10.9) H 11/21/21 05:10 Hgb 12.5 g/dL (13.6-17.9) L 11/21/21 05:10 Hct 38.8 % (39.6-49.0) L 11/21/21 05:10 Plt Count 290 K/uL (152-406) 11/21/21 05:10 PT 11.9 SECONDS (9.5-12.5) 11/15/21 16:51 INR 1.03 11/15/21 16:51 APTT 35.7 SECONDS (24.3-36.9) 11/15/21 16:51 Sodium 136 mmol/L (136-145) 11/22/21 06:18 Potassium 4.7 mmol/L (3.5-5.1) 11/22/21 06:18 BUN 52 mg/dL (7-18) H 11/22/21 06:18 Creatinine 6.04 mg/dL (0.55-1.3) H* D 11/22/21 06:18 Glucose 218 mg/dL (74-106) H 11/22/21 06:18 Phosphorus 5.1 mg/dL (2.5-4.9) H 11/18/21 06:05 Magnesium 2.7 mg/dL (1.8-2.4) H 11/19/21 06:54 Total Bilirubin 0.3 mg/dL (0.2-1.0) 11/19/21 06:54 AST 15 U/L (15-37) 11/19/21 06:54 ALT 27 U/L (12-78) 11/19/21 06:54 Alkaline Phosphatase 167 U/L (45-117) H 11/19/21 06:54 Lipase 132 U/L (73-393) 11/15/21 16:51 Home Medications: Aspirin [Arjun Chewable Aspirin] 81 mg PO DAILY 09/01/16 Insulin Degludec [Tresiba Flextouch U-100] 12 units SQ DAILY 10/02/18 Montelukast [Singulair*] 10 mg PO DAILY 10/02/18 Gabapentin 300 mg PO BEDTIME 02/07/19 Atorvastatin Calcium [Lipitor] 80 mg PO BEDTIME 08/20/21 Azelastine/Fluticasone [Azelastin-Flutic 137-50Mcg Spr] 1 spray NS DAILY 08/20/21 Budesonide/Formoterol Fumarate [Symbicort 160-4.5 Mcg Inhaler] 2 puff IH BID 08/20/21 Metoprolol Tartrate [Lopressor*] 50 mg PO BID 08/20/21 Vit B Comp C/Folic Acid/Vit D3 [Dialyvite 800 Plus D Wafer] 1 each PO SEECOM 08/20/21 Acetaminophen/Chlorpheniramine [Coricidin Hbp Cold-Flu Tablet] 1 tab PO BEDTIME 11/15/21 Cholecalciferol (Vitamin D3) [Vitamin D 5,000 IU Cap*] 5,000 unit PO DAILY 11/15/21 Clopidogrel Bisulfate [Plavix*] 75 mg PO SEECOM 11/15/21 Duloxetine HCl 60 mg PO BEDTIME 11/15/21 Magnesium Oxide 250 mg PO DAILY 11/15/21 Pantoprazole [Protonix Tab*] 40 mg PO DAILY 11/15/21 Albuterol Neb [Proventil 0.083% Neb Soln] 2.5 mg NEB [id number] PRN amp 11/22/21 Calcitrol [Rocaltrol*] 0.5 mcg PO DAILY cap 11/22/21 Docusate [Colace Cap*] 100 mg PO BID cap 11/22/21 Eszopiclone [Lunesta*] 2 mg PO BEDTIME PRN PRN tab 11/22/21 Heparin [Heparin 1,000 units/mL *] 3,000 unit IV EVERY HD PRN vial 11/22/21 Insulin -Regular Human [Novolin -R*] See Protocol SQ ACHS ml 11/22/21 Ipratropium Neb [Atrovent*] 0.5 mg NEB [id number] amp 11/22/21 Mannitol 25% [Mannitol*] 12.5 gm IV EVERY HD PRN vial 11/22/21 Nepro Shake [Nepro*] 237 ml PO TID can 11/22/21 Ubidecarenone [Coenzyme Q10*] 200 mg PO DAILY cap 11/22/21 Physician Discharge Instructions: Hemodialysis-, and Saturdays. Diet: ADA Activity: Fall precautions Followup: Misael Charlton MD [Primary Care Provider] - 1-2 Weeks Time spent managing pt's care (in minutes): 38
[2021-11-22] MEDS: IPRATROPIUM BROM 0.5MG/2.5ML NEB SCH ×2 (15:48→19:27)
[2021-11-22] MEDS: ACETAMINOPHEN PO SCH (21:00)
[2021-11-22] MEDS: [UNRECOGNIZED DRUG - OTHER] PO SCH (21:00)
[2021-11-22] MEDS: CHLORPHENIRAMINE PO SCH (21:00)
[2021-11-22] MEDS: GABAPENTIN 300 MG CAP PO SCH (21:07)
[2021-11-22] MEDS: CLOPIDOGREL 75 MG TABLET PO SCH (21:07)
[2021-11-22] MEDS: DULOXETINE 30 MG CAP PO SCH (21:07)
--- NOTE | 2021-11-22 21:10 | P.PN ---
Date of Service: 11/22/21 Vital Signs Temp Pulse Resp BP Pulse Ox 97.1 F 70 18 151/87 H 97 11/22/21 16:00 11/22/21 16:00 11/22/21 16:00 11/22/21 16:00 11/22/21 16:00 Medications Albuterol Sulfate (Albuterol 2.5 Mg/3 Ml Neb Jeanne) 2.5 mg NEB [id number] PRN PRN Reason: SHORTNESS OF BREATH Aspirin (Aspirin 81 Mg Chewable Tablet) 81 mg PO DAILY [facility] Last Admin: 11/22/21 10:01 Dose: 81 mg Documented by: Calcitriol (Calcitrol 0.25 Mcg Cap) 0.5 mcg PO DAILY [facility] Last Admin: 11/22/21 10:00 Dose: 0.5 mcg Documented by: Cholecalciferol (Vitamin D 5,000 Unit Cap) 5,000 unit PO DAILY [facility] Last Admin: 11/22/21 10:02 Dose: 5,000 unit Documented by: Clopidogrel Bisulfate (Clopidogrel 75 Mg Tablet) 75 mg PO MoWeFr [facility] Last Admin: 11/20/21 22:41 Dose: 75 mg Documented by: Coenzyme Q10 (Coenzyme Q10- 200 Mg Cap) 200 mg PO DAILY [facility] Last Admin: 11/22/21 10:03 Dose: 200 mg Documented by: Docusate Sodium (Docusate Na 100 Mg Cap) 100 mg PO BID [facility] Last Admin: 11/22/21 10:03 Dose: 100 mg Documented by: Duloxetine HCl (Duloxetine 30 Mg Cap) 60 mg PO BEDTIME [facility] Last Admin: 11/21/21 21:41 Dose: 60 mg Documented by: Enteral Nutritional Formula (Nepro Shake 237 Ml Can) 237 ml PO TID [facility] Last Admin: 11/22/21 14:00 Dose: 237 ml Documented by: Eszopiclone (Eszopiclone 1 Mg Tab) 2 mg PO BEDTIME PRN PRN PRN Reason: INSOMNIA Gabapentin (Gabapentin 300 Mg Cap) 300 mg PO BEDTIME [facility] Last Admin: 11/21/21 21:41 Dose: 300 mg Documented by: Heparin Sodium (Porcine) (Heparin 5000 Unit/Ml 1 Ml Vial) 5,000 unit SQ Q12HR [facility] Last Admin: 11/22/21 10:02 Dose: 5,000 unit Documented by: Heparin Sodium (Porcine) (Heparin 1,000 Unit/Ml Vial) 3,000 unit IV EVERY HD PRN PRN Reason: DIALYSIS Home Med (Acetaminophen/Chlorpheniramine [Coricidin Hbp Cold-Flu Tablet]) 1 tab PO BEDTIME [facility] Last Admin: 11/21/21 19:55 Dose: Not Given Documented by: Home Med (Azelastine/Fluticasone [Azelastin-Flutic 137-50mcg Spr]) 1 spray JAVIER DAILY [facility] Last Admin: 11/22/21 09:00 Dose: Not Given Documented by: Home Med (Budesonide/Formoterol Fumarate [Symbicort 160-4.5 Mcg Inhaler]) 2 puff IH BID [facility] Last Admin: 11/22/21 09:00 Dose: Not Given Documented by: Albumin Human (Albumin 25%) 50 mls @ 100 mls/hr IV EVERY HD [facility] Insulin Human Regular (Insulin -Regular Human 50 Unit/0.5 Ml Ml) 0 unit SQ ACHS [facility]; Protocol Last Admin: 11/22/21 16:24 Dose: Not Given Documented by: Ipratropium Combes (Ipratropium Brom 0.5mg/2.5ml) 0.5 mg NEB [id number] [facility] Last Admin: 11/22/21 19:27 Dose: 0.5 mg Documented by: Mannitol (Mannitol 25% 12.5 Gm/50 Ml Vial) 12.5 gm IV EVERY HD PRN PRN Reason: Titrate to SBP (MUST DEFINE) Metoprolol Tartrate (Metoprolol Tar 50 Mg Tab) 50 mg PO BID [facility] Last Admin: 11/22/21 10:03 Dose: 50 mg Documented by: Ondansetron HCl (Ondansetron 4 Mg/2 Ml Vial) 4 mg IV Q6HP PRN PRN Reason: NAUSEA / VOMITING Last Admin: 11/16/21 15:47 Dose: 4 mg Documented by: Pantoprazole Sodium (Pantoprazole 40mg Tablet) 40 mg PO DAILY [facility]; Protocol Last Admin: 11/22/21 10:01 Dose: 40 mg Documented by: Sodium Chloride (Flush Normal Saline 10 Ml) 10 ml IV BID [facility] Last Admin: 11/22/21 09:00 Dose: 10 ml Documented by: Microbiology Results 11/15/21 16:51 Blood - Blood Aerobic Blood Culture - Final No growth in 5 days. 11/15/21 16:51 Blood - Blood Anaerobic Blood Culture - Final No growth in 5 days. 11/15/21 16:35 Blood - Blood Aerobic Blood Culture - Final No growth in 5 days. 11/15/21 16:35 Blood - Blood Anaerobic Blood Culture - Final No growth in 5 days. Assessment/ Plan: Nephrology GARCÍA No chest pain Weakness and fatigue but feeling better today No acute events overnight Vitals, medications, blood work and imaging reviewed in the chart. General: Oriented x3, Cooperative, Mild distress HEENT: Atraumatic Neck: Supple Respiratory: CTA Cardiovascular: Regular rate/rhythm, Edema Gastrointestinal: Soft and benign, Non-distended Musculoskeletal: No clubbing, No contractures Integumentary: No rashes, No cyanosis Neurological: Normal speech Laboratory Data (last 24 hrs) 11/16/21 06:04: Sodium 138, Potassium 3.4 L, BUN 17, Creatinine 3.92 H, Glucose 134 H, Magnesium 2.0, Total Bilirubin 0.4, AST 19, ALT 26, Alkaline Phosphatase 173 H 11/16/21 06:04: WBC 7.80 D, Hgb 12.4 L, Hct 38.0 L, Plt Count 253 Imagings Data: EXAM DESCRIPTION: RADChest Single View11/15/2021 5:28 pm CLINICAL HISTORY: Shortness of breath COMPARISON: 2020 FINDINGS: Small to moderate right pleural effusion suspected with basilar atelectasis. Left lung appears clear of acute infiltrate. Heart is mildly enlarged EXAM DESCRIPTION: CT - Chest For Pe Angio - 11/16/2021 10:53 am CLINICAL HISTORY: r/o PEchest pain, shortness of breath COMPARISON: Chest Abd Pelvis Wo Con dated 06/25/2020; Thorax Wo Con dated 09/01/2016 TECHNIQUE: Dynamically enhanced 2 mm thick images of the chest were obtained during administration of approximately 150mL Isovue 370 IV contrast. Coronal and oblique MIP reconstruction images were generated and reviewed. Exam utilizes a protocol to evaluate the pulmonary arterial tree. All CT scans are performed using dose optimization technique as appropriate and may include automated exposure control or mA/KV adjustment according to patient size. FINDINGS: No pulmonary emboli are identified. Contrast density was not optimal but was diagnostic to exclude all but far peripheral pulmonary emboli. The aorta as imaged shows no acute or suspicious finding. No pericardial thickening or effusion. Left ventricular myocardium does appear to be thickened. CT sensitivity is limited. Follow-up cardiac echo could be performed as warranted. Small bilateral pleural effusions are present. There is lung parenchymal opacification posterior lower left lung field that is more likely atelectasis than infiltrate. The left pleural effusion may well be loculated. Right pleural effusion volume is similar to the 2020 study and is probably loculated as well. Areas of atelectasis are present. There is scarred lung parenchyma. No pneumothorax. No mediastinal or hilar suspicious masses. No chest wall masses or abnormal axillary lymphadenopathy. IMPRESSION: No pulmonary emboli identified. Bilateral small pleural effusions with both effusions probably loculated. Bilateral lung parenchymal opacification abutting the pleural effusions is favored to be atelectasis rather than infiltrate. Correlation can be made with any clinical or laboratory findings for pneumonia. Suspected left ventricular myocardial hypertrophy. CT sensitivity is limited. Cardiac echo could be performed to confirm or exclude wall hypertrophy. Conclusions/Impression: ESRD -HD TIW Hyponatremia -HD TIW Hypokalemia/ Hyperkalemia -HD TIW HTN with CKD/ CHF -Continue Metoprolol Diastolic CHF, A/C -HD with UF -Continue Metoprolol -Echocardiogram reviewed DM II with CKD -RISS Moderate malnutrition -Continue Nepro Anemia in CKD -Continue Retacrit CKD MBD -Continue Calcitriol Peer to peer with his insurance company performed today
[2021-11-23] MEDS: IPRATROPIUM BROM 0.5MG/2.5ML NEB SCH ×3 (01:35→13:56)
[2021-11-23 05:53] LABS: Potassium 4.8 mmol/L (3.5-5.1)
[2021-11-23] MEDS: HOME MED 1 EA UNK (Budesonide/Formoterol Fumarate [Symbicort 160-4.5 Mcg Inhaler] 10.2 GM IH SCH (09:00)
[2021-11-23] MEDS: NEPRO SHAKE 237 ML CAN PO SCH ×3 (09:00→11:52)
[2021-11-23] MEDS: AZELASTINE NAS SCH (09:00)
[2021-11-23] MEDS: [UNRECOGNIZED DRUG - OTHER] NAS SCH (09:00)
[2021-11-23] MEDS: FLUTICASONE NAS SCH (09:00)
[2021-11-23 09:02] VITALS: O2SAT 99
[2021-11-23] MEDS: INSULIN -REGULAR HUMAN 50 UNIT/0.5 ML ML SQ SCH ×3 (09:27→16:55)
[2021-11-23] MEDS: DOCUSATE NA 100 MG CAP PO SCH (09:28)
[2021-11-23] MEDS: CALCITROL 0.25 MCG CAP PO SCH (09:28)
[2021-11-23] MEDS: ASPIRIN 81 MG CHEWABLE TABLET PO SCH (09:29)
[2021-11-23] MEDS: PANTOPRAZOLE 40MG TABLET PO SCH (09:29)
[2021-11-23] MEDS: VITAMIN D 5,000 UNIT CAP PO SCH (09:29)
[2021-11-23] MEDS: METOPROLOL TAR 50 MG TAB PO SCH (09:29)
[2021-11-23] MEDS: COENZYME Q10- 200 MG CAP PO SCH (09:30)
[2021-11-23] MEDS: HEPARIN 5000 UNIT/ML 1 ML VIAL SQ SCH (09:30)
--- NOTE | 2021-11-23 10:57 | P.PN ---
Subjective Date of Service: 11/23/21 Chief Complaint: Dyspnea Patient is doing much patient is doing much better less anxious ambulating to the bathroom his weakness and shortness of breath has improved Review of Systems General: Weakness Respiratory: Shortness of Breath Physical Examination - Vital Signs Temperature: 97.9 F Blood Pressure: 140/78 Pulse: 79 Respirations: 20 Pulse Ox (%): 99 - Physical Exam General: Alert, In no apparent distress, Oriented x3 Respiratory: Clear to auscultation bilaterally, Friction rub Cardiovascular: Regular rate/rhythm Assessment And Plan - Current Problems (Diagnosis) (1) SOB (shortness of breath) Onset Date: 09/01/16 Current Visit: No Status: Acute Plan: Patient is doing much better probably side effect of medications possibly serotonergic syndrome resume his statin drug at half the dose for now patient scheduled to go to a rehab unit oxygenation satisfactory
--- NOTE | 2021-11-23 13:44 | P.PN ---
Subjective Date of Service: 11/22/21 Chief Complaint: Dyspnea Patient reports feeling much better today. He is currently tolerating room air at rest. Physical Examination - Vital Signs Temperature: 97.1 F Blood Pressure: 142/72 Pulse: 77 Respirations: 20 Pulse Ox (%): 99 Assessment And Plan - Plan Physical exam GEN: Alert, oriented, dyspneic HEENT: Normal conjunctiva, sclera anicteric CV: Regular rate and rhythm, no edema Pulm: Dyspneic/out of breath when talking, diminished bilaterally, mild bibasilar crackles ABD: Soft, nontender, nondistended Neuro: strength 5/5 in all 4 extremities Problem List Dyspnea Syncope small right pleural effusion ESRD on HD [facility] Diabetes mellitus type 2insulin-dependent CAD status post CABG 2019 Hypertension Hyperlipidemia Shortness of breath likely related to fluid overload from ESRD. Patient seen by pulmonary and considering polypharmacy contributing to patient's symptoms. Shortness of breath improved, patient is more functional. Continue low-dose dexamethasone. Psychotropic medications scaled down. Citalopram and bupropion are on hold. Nephrology is following and and managing hemodialysis. CT abdomen/pelvis negative for any acute process. Echocardiogram done and the result is unremarkable. Patient is receiving PT. Hemodialysis per nephrology. Planned for rehab placement.
--- NOTE | 2021-11-23 14:12 | P.PN ---
Subjective Date of Service: 11/23/21 Chief Complaint: Dyspnea patient seen /examined on dialysis. tolerating well. please also see dialysis orders/dialysis flow sheets. 1.5 l uf as tolerated. 2 k bath. alert/comfortable. Physical Examination - Vital Signs Temperature: 97.1 F Blood Pressure: 142/72 Pulse: 77 Respirations: 20 Pulse Ox (%): 99
[2021-11-23 16:46] VITALS: BP 138/64; TEMP 96.9
[2021-11-23] MEDS ORDERED: ATORVASTATIN 40 MG TAB PO SCH (21:00)
== END 2021-11-23 18:48 | DRG 640 ==
LOC: ER 16:11 → ERHOLD 19:08 → 2ND 20:23 → OBSVTOIN 11-16 14:32
PROVIDERS: ADMIT Hospitalist; ATTEND Internal Medicine
PROC: 5A1D70Z Performance of Urinary Filtration, Intermittent, Less than 6 Hours Per Day (ICD-10-PCS; principal; 2021-11-16)
DX: E87.70 Fluid overload, unspecified (principal); E43 Unspecified severe protein-calorie malnutrition; N18.6 End stage renal disease; I12.0 Hypertensive chronic kidney disease with stage 5 chronic kidney disease or end stage renal disease; E11.22 Type 2 diabetes mellitus with diabetic chronic kidney disease; E11.40 Type 2 diabetes mellitus with diabetic neuropathy, unspecified; E87.6 Hypokalemia; K21.9 Gastro-esophageal reflux disease without esophagitis; E87.5 Hyperkalemia; D63.1 Anemia in chronic kidney disease; I25.10 Atherosclerotic heart disease of native coronary artery without angina pectoris; E78.5 Hyperlipidemia, unspecified; M89.9 Disorder of bone, unspecified; G47.00 Insomnia, unspecified; J44.9 Chronic obstructive pulmonary disease, unspecified; F17.220 Nicotine dependence, chewing tobacco, uncomplicated; T50.915A Adverse effect of multiple unspecified drugs, medicaments and biological substances, initial encounter; Z68.29 Body mass index [BMI] 29.0-29.9, adult; Z88.5 Allergy status to narcotic agent; Z88.8 Allergy status to other drugs, medicaments and biological substances; Z88.1 Allergy status to other antibiotic agents; Z79.4 Long term (current) use of insulin; Z91.040 Latex allergy status; Z79.82 Long term (current) use of aspirin; Z79.899 Other long term (current) drug therapy; Z79.02 Long term (current) use of antithrombotics/antiplatelets; Z99.2 Dependence on renal dialysis; Z95.1 Presence of aortocoronary bypass graft; Z90.49 Acquired absence of other specified parts of digestive tract; Z95.5 Presence of coronary angioplasty implant and graft; Z20.822 Contact with and (suspected) exposure to COVID-19
CPT/HCPCS: 36415; 71045; 71275; 74177; 80048; 80053; 80076; 81003; 81015; 82805; 82947; 83690; 83735; 83880; 84100; 84439; 84443; 85025; 85610; 85730; 87040; 87086; 87088; 90935; 93005; 93306; 96374; 97110; 97116; 97162; 97530; 99285; G0378; J1644; J1940; J2405; J8540; P9047; Q5105; Q9967; U0003

== ENCOUNTER 2021-12-23 14:41 | Inpatient (IN) | payer OTHER ==
--- OUTSIDE RECORDS SUMMARY | 2021-12-23 14:51 | XMS REPORT | Continuity of Care Document ---
:1955 Author Organization [facility] t Address [address] [place] [place] [address] Care Team Providers Name Role Phone Pcp, Does Not Have A Primary Care Physician VALENCIA SLAUGHTER Attending Clinician Unavailable [id number] Attending Clinician Unavailable DES CONCEPCION Attending Clinician Unavailable ELVIA SHELDON Attending Clinician Unavailable Doctor Unassigned, Name Attending Clinician Unavailable Baum_L Attending Clinician Unavailable [facility] Attending Clinician [phone] DR Clarence MARRERO Attending Clinician Unavailable Alon JARAMILLO, Clarence Attending Clinician Clarence MCLEAN Attending Clinician Unavailable Jass JARAMILLO, Javon Attending Clinician ELVIRA BECKMAN Attending Clinician Unavailable VALENCIA SLAUGHTER Admitting Clinician Unavailable [id number] Admitting Clinician Unavailable DES CONCEPCION Admitting Clinician Unavailable ELVIA SHELDON Admitting Clinician Unavailable [facility] Admitting Clinician Unavailable DR Clarence MARRERO Admitting Clinician Unavailable Payers Payer Name Policy Type Policy Number Effective Date Expiration Date Sukh prado AEAREN AETM [id number] [employer]ETNA MEDICARE OPEN [id number] 2018 2018 PLAN PFFS 00:00:00 00:00:00 [employer] (MEDICARE [id number] 2019 REPLACEMENT PPO) 00:00:00 [id number] 1959 00:00:00 Problems Condition Condition Condition Status Onset Resolution Last Treating Co mments Source Name Details Category Date Date Treatment Clinician Date Hypertensi Hypertensi Disease Active 2020-09 U nivers on on 11-03 ity of 00:: Medical Branch Hyperlipid Hyperlipid Disease Active 2020-09 U nivers emia emia 11-03 ity of 00:00: [place] [facility] DISH DISH Disease Active 2020-09 [...] nivers left left 5-20 ity of 00:00: [place] 00 Medical Branch Acquired Acquired Disease Active 2019- 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 00:00: [place] disease disease 00 Medical Branch Chronic Chronic Disease Active 2020- Univers diastolic diastolic 9-21 ity of heart heart 00:00: [place] failure failure 00 Medical Branch End-stage End-stage Disease Active 2019- Uni vers renal renal 9-21 [place] of disease [place] hemodialys hemodialys 00 Me dical is is Branch Hypothyroi Hypothyroi Disease Active 2019- U nivers dism due dism due 9- ity of to defect to defect 00:00: [place] s in thyroid in thyroid 00 Me dical hormone hormone Branch synthesis synthesis Morbid Morbid Disease Active 2019- Univers obesity obesity 9-21 ity of 00:00: [place] 00 Medical Branch Obstructiv Obstructiv Disease Active 2019- U nivers e sleep e sleep 9-21 ity of apnea apnea 00:00: [place] [facility] Personal Personal Disease Active 2020-0 Unive rs history of history of 06-18 it y of nicotine nicotine 00:00: [place] dependence dependence 00 Ct dical Branch Renal Renal Disease Active 2020-0 Univers osteodystr osteodystr 06-18 it y of ophy ophy 00:00: [place] 00 Medical Branch Secondary Secondary Disease Active 2020-0 Uni vers hyperparat hyperparat 06-18 it y of hyroidism hyroidism 00:[place] Chronic Chronic Disease Active 2020-0 [facility] kidney kidney 06-18 ity of disease disease 00:00: [place] 00 Medical Branch Diabetes Diabetes Disease Active 2020-0 Unive rs mellitus mellitus 06-18 ity of 00:00: [place] 00 Medical Branch S/P S/P Disease Active [...] 00 Medical Branch Heart Heart Disease Active 2019-0 Univers attack attack 1-01 ity of 00:00: [place] 00 Medical Branch Pain in Pain in Disease Active 2016-0 Univers right knee right knee 3-30 it y of 00:00: [place] 00 Medical Branch Allergies, Adverse Reactions, Alerts Allergy Allergy Status Severity Reaction(s) Onset Inactive Treating Comm ents Source Name Type Date Date Clinician BEEF Allergy Active 2020-[address] [facility] 00:00: Medical PRODUCTS 00 [...] 8-21 [facility] Latex Propensi Active Rash 2019-0 Univers ty to 7-29 ity of adverse 00:00: [place] reaction 00 Medical s Branch Sulfa Propensi Active Hives 2019-0 Univers (Sulfona ty to 7-29 ity of mide adverse 00:00: [place] Antibiot reaction 00 Medica l ics) s Branch SULFA Drug Active Hives 2018-0 Univers (SULFONA Class 7-29 ity of MIDE 00:00: [place] ANTIBIOT 00 Medical ICS) Branch LATEX DRUG Active Low Rash 2018-0 Univers INGREDI 7-29 ity of 00:00: [place] 00 Medical Branch SULFA Allergy Active Hives 2018-[address] [facility] [address] (SULFONA [facility] - MIDE 00:00: Medical ANTIBIOT 00 Center ICS) Naproxen Propensi Active Palpitations 0 Univers Sodium ty to 3-30 ity of adverse 00:00: [place] reaction 00 Medical s Branch Cefuroxi Propensi Active Hives 0 Univer s me ty to 3-30 ity of Axetil adverse 00:00: [place] reaction 00 Medical s Branch Codeine Propensi Active Unknown - 20160 Severe Univ ers ty to See comments 3-30 Headache it y of adverse 00:00: [place] reaction 00 Medical s Branch Hydrocod Propensi Active Hives 2015-0 headaches Uni vers one ty to 3-30 ity of adverse 00:00: [place] reaction 00 Medical s Branch Tramadol Propensi Active Swelling 0 Univ ers ty to 3-30 ity of adverse 00:00: [place] reaction 00 Medical s Branch CEFUROXI DRUG Active Hives 20160 Univers ME INGREDI 3-30 ity of AXETIL 00:00: [place] 00 Medical Branch CODEINE DRUG Active Unknown-Cmnt 0 Uni vers INGREDI 3-30 ity of 00:00: [place] 00 Medical Branch HYDROCOD DRUG Active Other-Cmnt 2016-0 Univ ers ONE INGREDI 3-30 ity of 00:00: [place] 00 Medical Branch TRAMADOL DRUG Active Swelling 0 Univer s INGREDI 3-30 ity of 00:00: [place] 00 Medical Branch NAPROXEN DRUG Active Low Palpitations 2015-0 Un leanna SODIUM INGREDI 3-30 ity of 00:00: [place] 00 Medical Branch Social History Social Habit Start Date Stop Date Quantity Comments Source History of Snuff User University of tobacco use [facility] Exposure to Unable to assess Univers ity of SARS-CoV-2 [facility] (event) Branch Alcohol intake 2021-09-03 2021-09-03 0 /d [facility] 00:00:00 00:00:00 [facility] [place] [facility] Sex [birth year] At [birth year] Universit y of 00:00:00 00:00:00 [facility] [place] [facility] Smoking Status Start Date Stop Date Source Never smoker [facility] Medications Ordered Filled Start Stop Current Ordering Indication Dosage Frequency Signature Comments Components Source Medication Medication Date Date Medication? Clinician (SIG) Name Name clopidogreL 2020-09 Yes 75mg Take 75 mg Univers 75 mg 2-07 by mouth ity of tablet 11:40: daily. [address] Chlorphenir 2020-09 Yes 1{tbl} Take 1 Un leanna amine-Aceta 2-07 tablet by ity of minophen 11:40: mouth at [place] ([facility] 12 bedtime. Medic al HBP COLD Branch AND FLU) 2-325 mg Tab atorvastati 2020-09 Yes 80mg Take 80 mg Univers n 80 mg 2-07 by mouth ity of tablet 11:40: at [place] 12 bedtime. Medical Branch magnesium 2020-09 Yes Take by [facility] ers oxide 400 2-07 mouth. ity of mg 11:40: [place] magnesium Medical capsule Branch buPROPion 2020-09 Yes 150mg Take 150 Uni vers SR 2-07 mg by ity of (WELLBUTRIN 11:40: mouth 2 [place] as SR) 150 mg 12 (two) Medical SR tablet times Branch daily. montelukast 2020-09 Yes 10mg Take 10 mg Univers (SINGULAIR) 2-07 by mouth. ity of 10 mg 11:40: [place] tablet Medical Branch clopidogreL 2020-09 Yes 75mg Take 75 mg Univers 75 mg 2-07 by mouth ity of tablet 11:40: daily. [address] Chlorphenir 2020-09 Yes 1{tbl} Take 1 Un leanna amine-Aceta 2-07 tablet by ity of minophen 11:40: mouth at [place] ([facility] 12 bedtime. Medic al HBP COLD Branch AND FLU) 2-325 mg Tab atorvastati 2020-09 Yes 80mg Take 80 mg Univers n 80 mg 2-07 by mouth ity of tablet 11:40: at [place] [address] bedtime. Medical Branch magnesium 2020-09 Yes Take by Univ ers oxide 400 2-07 mouth. ity of mg 11:40: [place] magnesium Medical capsule Branch buPROPion 2020-09 Yes 150mg Take 150 Uni vers SR 2-07 mg by ity of (WELLBUTRIN 11:40: mouth 2 [place] as SR) 150 mg 12 (two) Medical SR tablet times Branch daily. montelukast 2020-09 Yes 10mg Take 10 mg Univers (SINGULAIR) 2-07 by mouth. ity of 10 mg 11:40: [place] [address] Medical Branch clopidogreL 2020-09 Yes 75mg Take 75 mg Univers 75 mg 2-07 by mouth ity of tablet 11:40: daily. [place] [address] Medical Branch Chlorphenir 2020-09 Yes 1{tbl} Take 1 Un leanna amine-Aceta 2-07 tablet by ity of minophen 11:40: mouth at [place] ([place] [address] bedtime. Medic al HBP COLD Branch AND FLU) 2-325 mg Tab atorvastati 2020-09 Yes 80mg Take 80 mg Univers n 80 mg 2-07 by mouth ity of tablet 11:40: at [place] [address] bedtime. Medical Branch magnesium 2020-09 Yes Take by [facility] ers oxide 400 2-07 mouth. ity of mg 11:40: [place] [address] Medical capsule Branch buPROPion 2020-09 Yes 150mg Take 150 Uni vers SR 2-07 mg by ity of (WELLBUTRIN 11:40: mouth 2 [place] as SR) 150 mg 12 (two) Medical SR tablet times Branch daily. montelukast 2020-09 Yes 10mg Take 10 mg Univers (SINGULAIR) 2-07 by mouth. ity of 10 mg 11:40: [place] [address] Medical Branch clopidogreL 2020-09 Yes 75mg Take 75 mg Univers 75 mg 2-07 by mouth ity of tablet 11:40: daily. [place] [address] Medical Branch Chlorphenir 2020-09 Yes 1{tbl} Take 1 Un leanna amine-Aceta 2-07 tablet by ity of minophen 11:40: mouth at [place] ([place] [address] bedtime. Medic al HBP COLD Branch AND FLU) 2-325 mg Tab atorvastati 2020-09 Yes 80mg Take 80 mg Univers n 80 mg 2-07 by mouth ity of tablet 11:40: at [place] [address] bedtime. Medical Branch magnesium 2020-09 Yes Take by [facility] ers oxide 400 2-07 mouth. ity of mg 11:40: [place] [address] Medical capsule Branch buPROPion 2020-09 Yes 150mg Take 150 Uni vers SR 2-07 mg by ity of (WELLBUTRIN 11:40: mouth 2 [place] as SR) 150 mg 12 (two) Medical SR tablet times Branch daily. montelukast 2020-09 Yes 10mg Take 10 mg Univers (SINGULAIR) 2-07 by mouth. ity of 10 mg 11:40: [place] [address] Medical Branch clopidogreL 2020-09 Yes 75mg Take 75 mg Univers 75 mg 2-07 by mouth ity of tablet 11:40: daily. [place] [address] Medical Branch Chlorphenir 2020-09 Yes 1{tbl} Take 1 Un leanna amine-Aceta 2-07 tablet by ity of minophen 11:40: mouth at [place] ([place] [address] bedtime. Medic al HBP COLD Branch AND FLU) 2-325 mg Tab atorvastati 2020-09 Yes 80mg Take 80 mg Univers n 80 mg 2-07 by mouth ity of tablet 11:40: at [place] [address] bedtime. Medical Branch magnesium 2020-09 Yes Take by [facility] ers oxide 400 2-07 mouth. ity of mg 11:40: [place] [address] Medical capsule Branch buPROPion 2020-09 Yes 150mg Take 150 Uni vers SR 2-07 mg by ity of (WELLBUTRIN 11:40: mouth 2 [place] as SR) 150 mg 12 (two) Medical SR tablet times Branch daily. montelukast 2020-09 Yes 10mg Take 10 mg Univers (SINGULAIR) 2-07 by mouth. ity of 10 mg 11:40: [place] [address] Medical Branch clopidogreL 2020-09 Yes 75mg Take 75 mg Univers 75 mg 2-07 by mouth ity of tablet 11:40: daily. [place] [address] Medical Branch Chlorphenir 2020-09 Yes 1{tbl} Take 1 Un leanna amine-Aceta 2-07 tablet by ity of minophen 11:40: mouth at [place] ([place] [address] bedtime. Medic al HBP COLD Branch AND FLU) 2-325 mg Tab atorvastati 2020-09 Yes 80mg Take 80 mg Univers n 80 mg 2-07 by mouth ity of tablet 11:40: at [place] [address] bedtime. Medical Branch magnesium 2020-09 Yes Take by Univ ers oxide 400 2-07 mouth. ity of mg 11:40: [place] [address] Medical capsule Branch buPROPion 2020-09 Yes 150mg Take 150 Uni vers SR 2-07 mg by ity of (WELLBUTRIN 11:40: mouth 2 [place] as SR) 150 mg 12 (two) Medical SR tablet times Branch daily. montelukast 2020-09 Yes 10mg Take 10 mg Univers (SINGULAIR) 2-07 by mouth. ity of 10 mg 11:40: [place] [address] Medical Branch clopidogreL 2020-09 Yes 75mg Take 75 mg Univers 75 mg 2-07 by mouth ity of tablet 11:40: daily. [place] [address] Medical Branch Chlorphenir 2020-09 Yes 1{tbl} Take 1 Un leanna amine-Aceta 2-07 tablet by ity of minophen 11:40: mouth at [place] ([place] [address] bedtime. Medic al HBP COLD Branch AND FLU) 2-325 mg Tab clopidogreL 2020-09 Yes 75mg Take 75 mg Univers 75 mg 2-07 by mouth ity of tablet 11:40: daily. [place] [address] Medical Branch Chlorphenir 2020-09 Yes 1{tbl} Take 1 Un leanna amine-Aceta 2-07 tablet by ity of minophen 11:40: mouth at [place] ([place] [address] bedtime. Medic al HBP COLD Branch AND FLU) 2-325 mg Tab atorvastati 2020-09 Yes 80mg Take 80 mg Univers n 80 mg 2-07 by mouth ity of tablet 11:40: at [place] [address] bedtime. Medical Branch magnesium 2020-09 Yes Take by Univ ers oxide 400 2-07 mouth. ity of mg 11:40: [place] [address] Medical capsule Branch buPROPion 2020-09 Yes 150mg Take 150 Uni vers SR 2-07 mg by ity of (WELLBUTRIN 11:40: mouth 2 [place] as SR) 150 mg 12 (two) Medical SR tablet times Branch daily. montelukast 2020-09 Yes 10mg Take 10 mg Univers (SINGULAIR) 2-07 by mouth. ity of 10 mg 11:40: [place] [address] Medical Branch clopidogreL 2020-09 Yes 75mg Take 75 mg Univers 75 mg 2-07 by mouth ity of tablet 11:40: daily. [place] [address] Medical Branch Chlorphenir 2020-09 Yes 1{tbl} Take 1 Un leanna amine-Aceta 2-07 tablet by ity of minophen 11:40: mouth at [place] ([place] [address] bedtime. Medic al HBP COLD Branch AND FLU) 2-325 mg Tab atorvastati 2020-09 Yes 80mg Take 80 mg Univers n 80 mg 2-07 by mouth ity of tablet 11:40: at [place] [address] bedtime. Medical Branch magnesium 2020-09 Yes Take by Univ ers oxide 400 2-07 mouth. ity of mg 11:40: [place] [address] Medical capsule Branch buPROPion 2020-09 Yes 150mg Take 150 Uni vers SR 2-07 mg by ity of (WELLBUTRIN 11:40: mouth 2 [place] as SR) 150 mg 12 (two) Medical SR tablet times [place] daily. montelukast 2020-09 Yes 10mg Take 10 mg Univers (SINGULAIR) 2-07 by mouth. ity of 10 mg 11:40: [place] [address] Medical Branch clopidogreL 2020-09 Yes 75mg Take 75 mg Univers 75 mg 2-07 by mouth ity of tablet 11:40: daily. [place] [address] Medical Branch Chlorphenir 2020-09 Yes 1{tbl} Take 1 Un leanna amine-Aceta 2-07 tablet by ity of minophen 11:40: mouth at [place] ([place] [address] bedtime. Medic al HBP COLD Branch AND FLU) 2-325 mg Tab atorvastati 2020-09 Yes 80mg Take 80 mg Univers n 80 mg 2-07 by mouth ity of tablet 11:40: at [place] [address] bedtime. Medical Branch magnesium 2020-09 Yes Take by Univ ers oxide 400 2-07 mouth. ity of mg 11:40: [place] [address] Medical capsule Branch buPROPion 2020-09 Yes 150mg Take 150 Uni vers SR 2-07 mg by ity of (WELLBUTRIN 11:40: mouth 2 [place] as SR) 150 mg 12 (two) Medical SR tablet times Branch daily. montelukast 2020-09 Yes 10mg Take 10 mg Univers (SINGULAIR) 2-07 by mouth. ity of 10 mg 11:40: [place] tablet 12 Medical Branch clopidogreL 2020-09 Yes 75mg Take 75 mg Univers 75 mg 2-07 by mouth ity of tablet 11:40: daily. [place] [address] Medical Branch Chlorphenir 2020-09 Yes 1{tbl} Take 1 Un leanna amine-Aceta 2-07 tablet by ity of minophen 11:40: mouth at [place] ([facility] 12 bedtime. Medic al HBP COLD Branch AND FLU) 2-325 mg Tab atorvastati 2020-09 Yes 80mg Take 80 mg Univers n 80 mg 2-07 by mouth ity of tablet 11:40: at [place] 12 bedtime. Medical Branch magnesium 2020-09 Yes Take by [facility] ers oxide 400 2-07 mouth. ity of mg 11:40: [place] magnesium Medical capsule Branch buPROPion 2020-09 Yes 150mg Take 150 Uni vers SR 2-07 mg by ity of (WELLBUTRIN 11:40: mouth 2 [place] as SR) 150 mg 12 (two) Medical SR tablet times Branch daily. montelukast 2020-09 Yes 10mg Take 10 mg Univers (SINGULAIR) 2-07 by mouth. ity of 10 mg 11:40: [place] tablet Medical Branch gabapentin Yes 300mg Take 300 Un leanna 300 mg 3-30 mg by ity of capsule 13:13: mouth 3 [place] 21 (three) Medical times Branch daily. Insulin Yes 35U inject 35 Unive rs Regular 3-30 Units ity of Human 13:13: under the [place] (NOVOLIN R 21 skin 3 Medical FLEXPEN) (three) Branch 100 unit/mL times (3 mL) InPn daily before meals. insulin Yes 80U inject 80 Unive rs degludec 3-30 Units ity of (TRESIBA 13:13: under the [facility] s FLEXTOUCH 21 skin daily Medi katja U-100) 100 before a Branc h unit/mL (3 meal. mL) InPn furosemide Yes 80mg Take 80 mg U nivers 80 mg 3-30 by mouth. ity of tablet 13:13: Takes on [place] [address] non Medical dialysis Branch days, S,M,W and F folic Yes 1{tbl} Take 1 Univers acid/vit B 3-30 tablet by ity of complex and 13:13: mouth [place] C 21 daily. Medical (DIALYVITE Branch 800 ORAL) ALBUTEROL Yes 2{puff} Inhale 2 U nivers INHALE 3-30 Puffs 4 ity of 13:13: (four) [place] 21 times Medical daily as Branch needed. aspirin 81 Yes 81mg Take 81 mg U nivers mg chewable 3-30 by mouth ity of tablet 13:13: daily. [place] 21 Medical Branch Insulin 2020-0 Yes 14U [...] Units ity of Human 13:13: under the [place] (NOVOLIN R 21 skin 3 Medical FLEXPEN) (three) Branch 100 unit/mL times (3 mL) InPn daily before meals. insulin Yes 80U inject 80 Unive rs degludec 3-30 Units ity of (TRESIBA 13:13: under [facility] FLEXT[facility]CH 21 skin daily Medi katja U-100) 100 before a Branc h unit/mL (3 meal. mL) InPn furosemide Yes 80mg Take 80 mg U nivers 80 mg 3-30 by mouth. ity of tablet 13:13: Takes [place] 21 non Medical dialysis Branch days, S,M,W and F folic Yes 1{tbl} Take 1 Univers acid/vit B 3-30 tablet by ity of complex and 13:13: mouth [place] C 21 daily. Medical (DIALYVITE Branch 800 ORAL) ALBUTEROL Yes 2{puff} Inhale 2 U nivers INHALE 3-30 Puffs 4 ity of 13:13: (four) [place] 21 times Medical daily as Branch needed. aspirin 81 0 Yes 81mg Take 81 mg U nivers mg chewable 3-30 by mouth ity of tablet 13:13: daily. [place] 21 Medical Branch Insulin 2020-0 Yes 14U 14 Units. Unive rs NPH-Regular 3-30 ity of Human Rec 13:13: [place] (NOVOLIN 21 Medical 70-30 Branch FLEXPEN U-100) 100 unit/mL (70-30) injection gabapentin 2020-0 Yes 300mg Take 300 Un leanna 300 mg 3-30 mg by ity of capsule 13:13: mouth 3 [place] 21 (three) Medical times Branch daily. Insulin 2020-0 Yes 35U inject 35 Unive rs Regular 3-30 Units ity of Human 13:13: under the [place] (NOVOLIN R 21 skin 3 Medical FLEXPEN) (three) Branch 100 unit/mL times (3 mL) InPn daily before meals. insulin 0 Yes 80U inject 80 Unive rs degludec 3-30 Units ity of (TRESIBA 13:13: under the [facility] s FLEXTOUCH 21 skin daily Medi katja U-100) 100 before a Branc h unit/mL (3 meal. mL) InPn furosemide 0 Yes 80mg Take 80 mg U nivers 80 mg 3-30 by mouth. ity of tablet 13:13: Takes on [place] [address] non Medical dialysis Branch days, S,M,W and F folic Yes 1{tbl} Take 1 Univers acid/vit B 3-30 tablet by ity of complex and 13:13: mouth [place] C 21 daily. Medical (DIALYVITE Branch 800 ORAL) ALBUTEROL 0 Yes 2{puff} Inhale 2 U nivers INHALE 3-30 Puffs 4 ity of 13:13: (four) [place] 21 times Medical daily as Branch needed. aspirin 81 0 Yes 81mg Take 81 mg U nivers mg chewable 3-30 by mouth ity of tablet 13:13: daily. [place] 21 Medical Branch Insulin 2020-0 Yes 14U 14 Units. Unive rs NPH-Regular 3-30 ity of Human Rec 13:13: [place] (NOVOLIN 21 Medical 70-30 Branch FLEXPEN U-100) 100 unit/mL (70-30) injection gabapentin 2020-0 Yes 300mg Take 300 Un leanna 300 mg 3-30 mg by ity of capsule 13:13: mouth 3 [place] 21 (three) Medical times Branch daily. Insulin 0 Yes 35U inject 35 Unive rs Regular 3-30 Units ity of Human 13:13: under the [place] (NOVOLIN R 21 skin 3 Medical FLEXPEN) (three) Branch 100 unit/mL times (3 mL) InPn daily before meals. insulin 0 Yes 80U inject 80 Unive rs degludec 3-30 Units ity of (TRESIBA 13:13: [facility] daily Medi katja U-100) 100 before a Branc h unit/mL (3 meal. mL) InPn furosemide Yes 80mg Take 80 mg U nivers 80 mg 3-30 by mouth. ity of tablet 13:13: Takes on [place] [address] non Medical dialysis Branch days, S,M,W and F folic Yes 1{tbl} Take 1 Univers acid/vit B 3-30 tablet by ity of complex and 13:13: mouth [place] C 21 daily. Medical (DIALYVITE Branch 800 ORAL) ALBUTEROL Yes 2{puff} Inhale 2 U nivers INHALE 3-30 Puffs 4 ity of 13:13: (four) [place] [address] times Medical daily as Branch needed. aspirin 81 Yes 81mg Take 81 mg U nivers mg chewable 3-30 by mouth ity of tablet 13:13: daily. [place] [address] Medical Branch Insulin 0 Yes 14U 14 Units. Unive rs NPH-Regular 3-30 ity of Human Rec 13:13: [place] (NOVOLIN 21 Medical 70-30 Branch FLEXPEN U-100) 100 unit/mL (70-30) injection gabapentin 0 Yes 300mg Take 300 Un leanna 300 mg 3-30 mg by ity of capsule 13:13: mouth 3 [place] 21 (three) Medical times Branch daily. Insulin 0 Yes 35U inject 35 Unive rs Regular 3-30 Units ity of Human 13:13: under the [place] (NOVOLIN R 21 skin 3 Medical FLEXPEN) (three) Branch 100 unit/mL times (3 mL) InPn daily before meals. insulin 0 Yes 80U inject 80 Unive rs degludec 3-30 Units ity of (TRESIBA 13:13: under the [facility] FLEXTOUCH 21 skin daily Medi katja U-100) 100 before a Branc h unit/mL (3 meal. mL) InPn furosemide 0 Yes 80mg Take 80 mg U nivers 80 mg 3-30 by mouth. ity of tablet 13:13: Takes on non Medical dialysis Branch days, S,M,W and F folic 2020-0 Yes 1{tbl} Take 1 Univers acid/vit B 3-30 tablet by ity of complex and 13:13: mouth [place] C 21 daily. Medical (DIALYVITE Branch 800 ORAL) ALBUTEROL 0 Yes 2{puff} Inhale 2 U nivers INHALE 3-30 Puffs 4 ity of 13:13: (four) [place] 21 times Medical daily as Branch needed. aspirin 81 0 Yes 81mg Take 81 mg U nivers mg chewable 3-30 by mouth ity of tablet 13:13: daily. [place] 21 Medical Branch Insulin 0 Yes 14U 14 Units. Unive rs NPH-Regular 3-30 ity of Human Rec 13:13: [place] (NOVOLIN 21 Medical 70-30 Branch FLEXPEN U-100) 100 unit/mL (70-30) injection gabapentin 2020-0 Yes 300mg Take 300 Un leanna 300 mg 3-30 mg by ity of capsule 13:13: mouth 3 [place] 21 (three) Medical times Branch daily. Insulin 2020-0 Yes 35U inject 35 Unive rs Regular 3-30 Units ity of Human 13:13: under the [place] (NOVOLIN R 21 skin 3 Medical FLEXPEN) (three) Branch 100 unit/mL times (3 mL) InPn daily before meals. insulin 0 Yes 80U inject 80 Unive rs degludec 3-30 Units ity of (TRESIBA 13:13: under the [facility] FLEXTOUCH 21 skin daily Medi katja U-100) 100 before a Branc h unit/mL (3 meal. mL) InPn furosemide 0 Yes 80mg Take 80 mg U nivers 80 mg 3-30 by mouth. ity of tablet 13:13: Takes on [place] non Medical dialysis Branch days, S,M,W and F folic 2020-0 Yes 1{tbl} Take 1 Univers acid/vit B 3-30 tablet by ity of complex and 13:13: mouth [place] C 21 daily. Medical (DIALYVITE Branch 800 ORAL) ALBUTEROL Yes 2{puff} Inhale 2 U nivers INHALE 3-30 Puffs 4 ity of 13:13: (four) [place] 21 times Medical daily as Branch needed. aspirin 81 0 Yes 81mg Take 81 mg U nivers mg chewable 3-30 by mouth ity of tablet 13:13: daily. [place] 21 Medical Branch Insulin Yes 14U 14 Units. Unive rs NPH-Regular 3-30 ity of Human Rec 13:13: [place] (NOVOLIN 21 Medical 70-30 Branch FLEXPEN U-100) 100 unit/mL (70-30) injection gabapentin Yes 300mg Take 300 Un leanna 300 mg 3-30 mg by ity of capsule 13:13: mouth 3 21 (three) Medical times Branch daily. Insulin Yes 35U inject 35 Unive rs Regular 3-30 Units ity of Human 13:13: under the [place] (NOVOLIN R 21 skin 3 Medical FLEXPEN) (three) Branch 100 unit/mL times (3 mL) InPn daily before meals. insulin Yes 80U inject 80 Unive rs degludec 3-30 Units ity of (TRESIBA 13:13: under the [facility] s FLEXTOUCH 21 skin daily Medi katja [...] 3-30 Puffs 4 ity of 13:13: (four) [place] 21 times Medical daily as Branch needed. aspirin 81 0 Yes 81mg Take 81 mg U nivers mg chewable 3-30 by mouth ity of tablet 13:13: daily. [place] 21 Medical Branch Insulin 2020-0 Yes 14U 14 Units. Unive rs NPH-Regular 3-30 ity of Human Rec 13:13: [place] (NOVOLIN 21 Medical 70-30 Branch FLEXPEN U-100) 100 unit/mL (70-30) injection gabapentin 2020-0 Yes 300mg Take 300 Un leanna 300 mg 3-30 mg by ity of capsule 13:13: mouth 3 21 (three) Medical times Branch daily. Insulin 2020-0 Yes 35U inject 35 Unive rs Regular 3-30 Units ity of Human 13:13: under the [place] (NOVOLIN R 21 skin 3 Medical FLEXPEN) (three) Branch 100 unit/mL times (3 mL) InPn daily before meals. insulin 2020-0 Yes 80U inject 80 Unive rs degludec 3-30 Units ity of (TRESIBA 13:13: under the [facility] s FLEXTOUCH 21 skin daily Medi katja [...] 3-30 Puffs 4 ity of 13:13: (four) [place] 21 times Medical daily as Branch needed. aspirin 81 2020-0 Yes 81mg Take 81 mg U nivers mg chewable 3-30 by mouth ity of tablet 13:13: daily. [place] 21 Medical Branch Insulin 2020-0 Yes 14U 14 Units. Unive rs NPH-Regular 3-30 ity of Human Rec 13:13: [place] (NOVOLIN 21 Medical 70-30 Branch FLEXPEN U-100) 100 unit/mL (70-30) injection gabapentin 2020-0 Yes 300mg Take 300 Un leanna 300 mg 3-30 mg by ity of capsule 13:13: mouth 3 21 (three) Medical times Branch daily. Insulin 2020-0 Yes 35U inject 35 Unive rs Regular 3-30 Units ity of Human 13:13: under the [place] (NOVOLIN R 21 skin 3 Medical FLEXPEN) (three) Branch 100 unit/mL times (3 mL) InPn daily before meals. insulin 0 Yes 80U inject 80 Unive rs degludec 3-30 Units ity of (TRESIBA 13:13: under the [facility] FLEXTOUCH 21 skin daily Medi katja U-100) 100 before a Branc h unit/mL (3 meal. mL) InPn furosemide 0 Yes 80mg Take 80 mg U nivers 80 mg 3-30 by mouth. ity of tablet 13:13: Takes on [place] [address] non Medical dialysis Branch days, S,M,W and F folic Yes 1{tbl} Take 1 Univers acid/vit B 3-30 tablet by ity of complex and 13:13: mouth [place] C 21 daily. Medical (DIALYVITE Branch 800 ORAL) ALBUTEROL Yes 2{puff} Inhale 2 U nivers INHALE 3-30 Puffs 4 ity of 13:13: (four) [place] 21 times Medical daily as Branch needed. aspirin 81 0 Yes 81mg Take 81 mg U nivers mg chewable 3-30 by mouth ity of tablet 13:13: daily. [place] [address] Medical Branch Insulin 0 Yes 14U 14 Units. Unive rs NPH-Regular 3-30 ity of Human Rec 13:13: [place] [facility] Medical 70-30 Branch FLEXPEN U-100) 100 unit/mL (70-30) injection gabapentin 0 Yes 300mg Take 300 Un leanna 300 mg 3-30 mg by ity of capsule 13:13: mouth 3 [place] 21 (three) Medical times Branch daily. Insulin 2020-0 Yes 35U inject 35 Unive rs Regular 3-30 Units ity of Human 13:13: under the [place] (NOVOLIN R 21 skin 3 Medical FLEXPEN) (three) Branch 100 unit/mL times (3 mL) InPn daily before meals. insulin 0 Yes 80U inject 80 Unive rs degludec 3-30 Units ity of (TRESIBA 13:13: under the [facility] s FLEXTOUCH 21 skin daily Medi katja U-100) 100 before a Branc h unit/mL (3 meal. mL) InPn furosemide 2020-0 Yes 80mg Take 80 mg U nivers 80 mg 3-30 by mouth. ity of tablet 13:13: Takes on non Medical dialysis Branch days, S,M,W and F folic 2020-0 Yes 1{tbl} Take 1 Univers acid/vit B 3-30 tablet by ity of complex and 13:13: mouth [place] C 21 daily. Medical (DIALYVITE Branch 800 ORAL) ALBUTEROL 0 Yes 2{puff} Inhale 2 U nivers INHALE 3-30 Puffs 4 ity of 13:13: (four) [place] 21 times Medical daily as Branch needed. aspirin 81 0 Yes 81mg Take 81 mg U nivers mg chewable 3-30 by mouth ity of tablet 13:13: daily. [place] 21 Medical Branch Insulin Yes 14U 14 Units. Unive rs NPH-Regular 3-30 ity of Human Rec 13:13: [place] (NOVOLIN 21 Medical 70-30 Branch FLEXPEN U-100) 100 unit/mL (70-30) injection gabapentin 0 Yes 300mg Take 300 Un leanna 300 mg 3-30 mg by ity of capsule 13:13: mouth 3 21 (three) Medical times Branch daily. Insulin 0 Yes 35U inject 35 Unive rs Regular 3-30 Units ity of Human 13:13: under the [place] (NOVOLIN R 21 skin 3 Medical FLEXPEN) (three) Branch 100 unit/mL times (3 mL) InPn daily before meals. insulin 0 Yes 80U inject 80 Unive rs degludec 3-30 Units ity of (TRESIBA 13:13: under the [facility] s FLEXTOUCH 21 skin daily Medi katja U-100) 100 before a Branc h unit/mL (3 meal. mL) InPn furosemide Yes 80mg Take 80 mg U nivers 80 mg 3-30 by mouth. ity of tablet 13:13: Takes on non Medical dialysis Branch days, S,M,W and F folic 2020-0 Yes 1{tbl} Take 1 Univers acid/vit B 3-30 tablet by ity of complex and 13:13: mouth [place] C 21 daily. Medical (DIALYVITE Branch 800 ORAL) ALBUTEROL 2020-0 Yes 2{puff} Inhale 2 U nivers INHALE 3-30 Puffs 4 ity of 13:13: (four) [place] 21 times Medical daily as Branch needed. aspirin 81 2020-0 Yes 81mg Take 81 mg U nivers mg chewable 3-30 by mouth ity of tablet 13:13: daily. [place] [address] Medical Branch Insulin 2020-0 Yes 14U 14 Units. Unive rs NPH-Regular 3-30 ity of Human Rec 13:13: [place] (NOVOLIN 21 Medical 70-30 Branch FLEXPEN U-100) 100 unit/mL (70-30) injection metoprolol 2020-0 Yes 50mg Take 50 mg U nivers tartrate 50 1-06 by mouth 2 it y of mg tablet 00:00: (two) [place] 00 times Medical daily with Branch meals. metoprolol 2020-0 Yes 50mg Take 50 mg U nivers tartrate 50 1-06 by mouth 2 it y of mg tablet 00:00: (two) [place] 00 times Medical daily with Branch meals. metoprolol 2020-0 Yes 50mg Take 50 mg U nivers tartrate 50 1-06 by mouth 2 it y of mg tablet 00:00: (two) [place] 00 times Medical daily with Branch meals. metoprolol 2020-0 Yes 50mg Take 50 mg U nivers tartrate 50 1-06 by mouth 2 it y of mg tablet 00:00: (two) [place] 00 times Medical daily with Branch meals. metoprolol 2020-0 Yes 50mg Take 50 mg U nivers tartrate 50 1-06 by mouth 2 it y of mg tablet 00:00: (two) [place] 00 times Medical daily with Branch meals. metoprolol 2020-0 Yes 50mg Take 50 mg U nivers tartrate 50 1-06 by mouth 2 it y of mg tablet 00:00: (two) [place] 00 times Medical daily with Branch meals. metoprolol 2021-0 Yes 50mg Take 50 mg U nivers tartrate 50 1-06 by mouth 2 it y of mg tablet 00:00: (two) [place] 00 times Medical daily with Branch meals. metoprolol 2020-0 Yes 50mg Take 50 mg U nivers tartrate 50 1-06 by mouth 2 it y of mg tablet 00:00: (two) [place] 00 times Medical daily with Branch meals. metoprolol 2020-0 Yes 50mg Take 50 mg U nivers tartrate 50 1-06 by mouth 2 it y of mg tablet 00:00: (two) [place] times Medical daily with Branch meals. metoprolol 2021-0 Yes 50mg Take 50 mg U nivers tartrate 50 1-06 by mouth 2 it y of mg tablet 00:00: (two) [place] times Medical daily with Branch meals. metoprolol 2021-0 Yes 50mg Take 50 mg U nivers tartrate 50 1-06 by mouth 2 it y of mg tablet 00:00: (two) [place] times Medical daily with Branch meals. DULoxetine 2016-0 Yes 30mg 30 mg. Unive rs (CYMBALTA) 3-10 ity of 60 mg 00:00: [place] capsule Medical Branch DULoxetine 2016-0 Yes 30mg 30 mg. Unive rs (CYMBALTA) 3-10 ity of 60 mg 00:00: [place] capsule Medical Branch DULoxetine 2016-0 Yes 30mg 30 mg. Unive rs (CYMBALTA) 3-10 ity of 60 mg 00:00: [place] capsule Medical Branch DULoxetine 2016-0 Yes 30mg 30 mg. Unive rs (CYMBALTA) 3-10 ity of 60 mg 00:00: [place] capsule Medical Branch DULoxetine 2016-0 Yes 30mg 30 mg. Unive rs (CYMBALTA) 3-10 ity of 60 mg 00:00: [place] capsule Medical Branch DULoxetine 2016-0 Yes 30mg 30 mg. Unive rs (CYMBALTA) 3-10 ity of 60 mg 00:00: [place] capsule Medical Branch DULoxetine 2016-0 Yes 30mg 30 mg. Unive rs (CYMBALTA) 3-10 ity of 60 mg 00:00: [place] capsule Medical Branch DULoxetine 2016-0 Yes 30mg 30 mg. Unive rs (CYMBALTA) 3-10 ity of 60 mg 00:00: [place] capsule Medical Branch DULoxetine 2016-0 Yes 30mg 30 mg. Unive rs (CYMBALTA) 3-10 ity of 60 mg 00:00: [place] capsule Medical Branch DULoxetine 2016-0 Yes 30mg 30 mg. Unive rs (CYMBALTA) 3-10 ity of 60 mg 00:00: [place] capsule 00 Medical Branch DULoxetine 2016-0 Yes 30mg 30 mg. Unive rs (CYMBALTA) 3-10 ity of 60 mg 00:00: [place] capsule 00 Medical Branch amitriptyli 2015-0 Yes 25mg Take 25 mg Univers ne [...] mouth ity of 25 mg 00:00: at [place] tablet 00 bedtime. Medical Branch Immunizations Ordered Filled Immunization Date Status Comments [facility] e Immunization Name Name Tutu Martin (08-162019-09-19 Completed Universi ty of Yrs) 00:00:00 [place] [facility] Engerix B (08-162019-09-19 Completed Universi ty of Yrs) 00:00:00 [place] [facility] Engerix B (08-162019-09-19 Completed Universi ty of Yrs) 00:00:00 [place] [facility] Engerix B (08-162019-09-19 Completed Universi ty of Yrs) 00:00:00 [place] [facility] Engerix B (08-162019-09-19 Completed Universi ty of Yrs) 00:00:00 [place] [facility] Branch Engerix B (08-162019-09-19 Completed Universi ty of Yrs) 00:00:00 [facility] Branch Engerix B (08-162019-09-19 Completed Universi ty of Yrs) 00:00:00 [facility] Branch Engerix B (08-162019-09-19 Completed Universi ty of Yrs) 00:00:00 [facility] Branch Engerix B (08-162019-09-19 Completed Universi ty of Yrs) 00:00:00 [facility] Branch Engerix B (08-162019-09-19 Completed Universi ty of Yrs) 00:00:00 [facility] Branch Engerix B (08-162019-09-19 Completed Universi ty of Yrs) 00:00:00 [facility] [place] [facility] Influenza Virus 2019-07-19 Completed Universit y of Vaccine - Whole 00:00:[address] [facility] Influenza Virus 2019-07-19 Completed Universit y of Vaccine - Whole 00:00:[address] [facility] Influenza Virus 2019-07-19 Completed Universit y of Vaccine - Whole 00:00:[address] [facility] Influenza Virus 2019-07-19 Completed Universit y of Vaccine - Whole 00:00:[address] [facility] Influenza Virus 2019-07-19 Completed Universit y of Vaccine - Whole 00:00:[address] [facility] Influenza Virus 2019-07-19 Completed Universit y of Vaccine - Whole 00:00:[address] [facility] Influenza Virus 2019-07-19 Completed Universit y of Vaccine - Whole 00:00:[address] [facility] Influenza Virus 2019-07-19 Completed Universit y of Vaccine - Whole 00:00:[address] [facility] Influenza Virus 2019-07-19 Completed Universit y of Vaccine - Whole 00:00:[address] [facility] Influenza Virus 2019-07-19 Completed Universit y of Vaccine - Whole 00:00:[address] [facility] Influenza Virus 2019-07-19 Completed Universit y of Vaccine - Whole 00:00:[address] [facility] Engerix B (08-162019-05-24 Completed Universi ty of Yrs) 00:00:00 [facility] Branch Engerix B (08-162019-05-24 Completed Universi ty of Yrs) 00:00:00 [facility] Branch Engerix B (08-162019-05-24 Completed Universi ty of Yrs) 00:00:00 [facility] Branch Engerix B (08-162019-05-24 Completed Universi ty of Yrs) 00:00:00 [facility] Branch Engerix B (08-162019-05-24 Completed Universi ty of Yrs) 00:00:00 [facility] Branch Engerix B (08-162019-05-24 Completed Universi ty of Yrs) 00:00:00 [facility] Branch Engerix B (08-162019-05-24 Completed Universi ty of Yrs) 00:00:00 [facility] Branch Engerix B (08-162019-05-24 Completed Universi ty of Yrs) 00:00:00 [facility] Branch Engerix B (08-162019-05-24 Completed Universi ty of Yrs) 00:00:00 [facility] Branch Engerix B (08-162019-05-24 Completed Universi ty of Yrs) 00:00:00 [facility] Branch Engerix B (08-162019-05-24 Completed Universi ty of Yrs) 00:00:00 [facility] Branch Engerix B (08-162019-04-19 Completed Universi ty of Yrs) 00:00:00 [facility] Branch Engerix B (08-162019-04-19 Completed Universi ty of Yrs) 00:00:00 [facility] Branch Engerix B (08-162019-04-19 Completed Universi ty of Yrs) 00:00:00 [place] [facility] Engerix B (08-162019-04-19 Completed Universi ty of Yrs) 00:00:00 [place] [facility] Engerix B (08-162019-04-19 Completed Universi ty of Yrs) 00:00:00 [place] [facility] Engerix B (08-162019-04-19 Completed Universi ty of Yrs) 00:00:00 [place] [facility] Engerix B (08-162019-04-19 Completed Universi ty of Yrs) 00:00:00 [place] [facility] Engerix B (08-162019-04-19 Completed Universi ty of Yrs) 00:00:00 [place] [facility] Engerix B (08-162019-04-19 Completed Universi ty of Yrs) 00:00:00 [place] [facility] Engerix B (08-162019-04-19 Completed Universi ty of Yrs) 00:00:00 [place] [facility] Engerix B (08-162019-04-19 Completed Universi ty of Yrs) 00:00:00 [place] [facility] Engerix B (08-162019-03-22 Completed Universi ty of Yrs) 00:00:00 [place] [facility] Engerix B (08-162019-03-22 Completed Universi ty of Yrs) 00:00:00 [place] [facility] Engerix B (08-162019-03-22 Completed Universi ty of Yrs) 00:00:00 [place] [facility] Engerix B (08-162019-03-22 Completed Universi ty of Yrs) 00:00:00 [place] [facility] Engerix B (08-162019-03-22 Completed Universi ty of Yrs) 00:00:00 [place] [facility] Engerix B (08-162019-03-22 Completed Universi ty of Yrs) 00:00:00 [place] [facility] Engerix B (08-162019-03-22 Completed Universi ty of Yrs) 00:00:00 [place] [facility] Engerix B (08-162019-03-22 Completed Universi ty of Yrs) 00:00:00 [place] [facility] Engerix B (08-162019-03-22 Completed Universi ty of Yrs) 00:00:00 [facility] [place] [facility] Engerix B (08-162019-03-22 Completed Universi ty of Yrs) 00:00:00 [facility] [place] [facility] Engerix B (08-162019-03-22 Completed Universi ty of Yrs) 00:00:00 [facility] [place] [facility] Influenza Virus 2019-03-03 Completed Universit y of Vaccine - Whole 00:00:[address] [facility] Influenza Virus 2019-03-03 Completed Universit y of Vaccine - Whole 00:00:[address] [facility] Influenza Virus 2019-03-03 Completed Universit y of Vaccine - Whole 00:00:[address] [facility] Influenza Virus 2019-03-03 Completed Universit y of Vaccine - Whole 00:00:[address] [facility] Influenza Virus 2019-03-03 Completed Universit y of Vaccine - Whole 00:00:[address] [facility] Influenza Virus 2019-03-03 Completed Universit y of Vaccine - Whole 00:00:[address] [facility] Influenza Virus 2019-03-03 Completed Universit y of Vaccine - Whole 00:00:[address] [facility] Influenza Virus 2019-03-03 Completed Universit y of Vaccine - Whole 00:00:[address] [facility] Influenza Virus 2019-03-03 Completed Universit y of Vaccine - Whole 00:00:[address] [facility] Influenza Virus 2019-03-03 Completed Universit y of Vaccine - Whole 00:00:[address] [facility] Influenza Virus 2019-03-03 Completed Universit y of Vaccine - Whole 00:00:[address] [facility] Pneumococcal 2018-03-03 Completed University o f Polysaccharide, 00:00:00 [facility] PPSV23 (PNEUMOVAX) Branch Pneumococcal 2018-03-03 Completed University o f Polysaccharide, 00:00:00 [facility] PPSV23 (PNEUMOVAX) Branch Pneumococcal 2018-03-03 Completed University o f Polysaccharide, 00:00:00 [facility] PPSV23 (PNEUMOVAX) Branch Pneumococcal 2018-03-03 Completed University o f Polysaccharide, 00:00:00 [facility] PPSV23 (PNEUMOVAX) Branch Pneumococcal 2018-03-03 Completed University o f Polysaccharide, 00:00:00 [facility] PPSV23 (PNEUMOVAX) Branch Pneumococcal 2018-03-03 Completed University o f Polysaccharide, 00:00:00 [place] [facility] ical PPSV23 (PNEUMOVAX) Branch Pneumococcal 2018-03-03 Completed University o f Polysaccharide, 00:00:00 [place] [facility] ical PPSV23 (PNEUMOVAX) Branch Pneumococcal 2018-03-03 Completed University o f Polysaccharide, 00:00:00 [place] [facility] ical PPSV23 (PNEUMOVAX) Branch Pneumococcal 2018-03-03 Completed University o f Polysaccharide, 00:00:00 [place] [facility] ical PPSV23 (PNEUMOVAX) Branch Pneumococcal 2018-03-03 Completed University o f Polysaccharide, 00:00:00 [place] [facility] ical PPSV23 (PNEUMOVAX) Branch Pneumococcal 2018-03-03 Completed University o f Polysaccharide, 00:00:00 [place] [facility] ical PPSV23 (PNEUMOVAX) Branch Vital Signs Vital Name Observation Time Observation Value Comments Source HEIGHT 2020-05-18 00:00:00 185.4 cm WEIGHT 2020-05-18 00:00:00 143.6 kg HEIGHT 2020-05-18 00:00:00 185.4 cm WEIGHT 2020-05-18 00:00:00 143.6 kg Procedures Procedure Date / Time Performed Performing Clinician [facility] e TRANSPLANT/EXT 2021-12-19 05:01:00 Doctor Unassigned, No [facility]iver [facility] PROVIDER NOTES Name Medical Branch 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 Name Medical Branch Encounters Start End Encounter Admission Attending Care Care Encounter Source Date/Time Date/Time Type Type Clinicians Facility Department ID 2021-11-22 [id number] 16:05:16 VALENCIA 2021-11-21 Outpatient 3 [id number] [place] [id number] ENCPL 08:44:53 2232021-11-20 Outpatient 3 [id number] ENCSL REF [id number] ENCSL 14:19:04 2021-11-20 Outpatient 3 [id number] ENCPL REF [id number] ENCPL 08:13:15 0223 2021-07-03 [facility] [id number] [facility] 04:05:08 JEROMY 2020-05-18 Inpatient ER MONALISA [facility] Cardiovascu [id number] SLE 15:07:21 [place]AA [place] 2021-12-19 2021-12-19 Orders Doctor BRYANNA [id number] Univers 00:00:00 00:00:00 Only Unassigned, JASON 350.1.13.10 ity of [facility] [id number] E[place] as [id number] Medi katja 009 Branch 2021-11-23 2021-12-11 Inpatient 3 KASANDRA ENCSL OT [id number] ENCSL 20:07:00 15:51:00 VALENCIA 2021-12-10 2021-12-10 Outpatient Baum_L [facility] [id number] [place] 09:25:00 09:25:00 [facility] 2021-12-09 2021-12-09 Outpatient Baum_L [facility] [id number] [place] 04:49:00 04:49:00 [facility] 2021-12-09 2021-12-09 Outpatient [facility] U [id number] e-[id number] 00:00:00 00:00:00 [id number] 2021-12-06 2021-12-06 Outpatient C ELIDA [facility] [id number] [facility] 08:35:00 23:59:00 [facility] 2021-12-04 2021-12-04 Outpatient Baum_L [facility] U [id number] [place] 09:10:00 09:10:00 [facility] 2021-12-03 2021-12-03 Outpatient Baum_L [facility] U [id number] [place] 03:40:00 03:40:00 [facility] 2021-12-03 2021-12-03 Outpatient [facility] U [id number] 00:00:00 00:00:00 [id number] 2021-11-29 2021-11-29 Outpatient Baum_L [facility] U [id number] [place] 04:48:00 04:48:00 [facility] 2021-11-29 2021-11-29 Outpatient Baum_L U U [id number] [place] 04:48:00 04:48:00 [facility] 2021-11-21 2021-11-21 Telephone [facility] [id number] Univers 00:00:00 00:00:00 [place] A MULTISPEC [id number] ity of [place] [id number] [address] DIABETES [facility]INIC 2021-10-29 2021-10-29 Telephone [facility] [id number] Univers 00:00:00 00:00:00 [place] A MULTISPEC [id number] [place].686 [place] [id number] [address] DIABETES CLINIC 2021-10-21 2021-10-21 Abstract [facility] [id number] Univers 00:00:00 00:00:00 Maulik A MULTISPEC [id number] ity of IAY 4.2.7.2.[address] [facility] [id number] [address] DIABETES CLINIC 2021-10-17 2021-10-17 Telephone [facility] [id number] Univers 00:00:00 00:00:00 [place] A MULTISPEC [id number] ity of [place]AL[place] 4.2.7.2.[address] [facility] [id number] [address] DIABETES CLINIC 2021-10-16 2021-10-16 [facility] [id number] Univers 17:17:00 23:59:00 Encounter Maulik A JASON 350.1.13.10 ity of HOSPITAL 4.2.7.2.686 [place] as [id number] [facility] 040 Branch 2021-10-16 2021-10-16 Outpatient R [facility] [id number] Univers 00:00:00 00:00:00 [place] ity o f [facility] [place] [facility] 2021-10-09 2021-10-09 Telephone [facility] 1.2.840.114 [id number] Univers 00:00:00 00:00:00 Cristian Javon MULTISPEC 350.1.13.10 [place] [id number] [address] DIABETES CLINIC 2021-10-04 2021-10-04 Committee [facility] [id number] Univers 00:00:00 00:00:00 Review [place] Clarence MULTISPEC 350.1.13.10 ity of IALTY 4.2.7.2.[address] [facility] [place] [id number] [address] DIABETES CLINIC 2021-09-30 2021-09-30 Telephone [facility] [id number] Univers 00:00:00 00:00:00 [place] MULTISPEC [id number] ity of [place]AL[place] 4.2.7.2.[address] [facility] [id number] [address] DIABETES CLINIC 2021-09-09 2021-09-09 Committee [facility] 1.2.840.114 [id number] Univers 00:00:00 00:00:00 Review Cristian Javon MULTISPEC 350.1.13.10 ity of [place] 4.2.7.2.[address] [facility] [id number] [address] DIABETES CLINIC 2021-08-26 2021-08-28 Outpatient [facility] [id number] [facility] 12:24:00 15:51:00 NIRANJAN 2021-08-18 2021-08-18 Orders Doctor BRYANNA [id number] Univers 00:00:00 00:00:00 Only Unassigned, JASON 350.1.13.10 ity of [facility] 4.2.7.2.686 Erick as [id number] Medi [address] 2021-02-26 2021-02-26 Outpatient R [facility] [id number] Univers 00:00:00 23:59:00 MAULIK lombardi o f [facility] 2020-07-13 2020-07-13 Committee [facility] [id number] [id number] 00:00:00 00:00:00 Review [place] MULTISPEC 350.1.13.10 IALTY 4.2.7.2.686 [place] [id number] AND [place] [facility] DIABETES CLINIC 2020-07-13 2020-07-13 Abstract [facility] [id number] 00:00:00 00:00:00 [place] MULTISPEC 350.1.13.10 IALTY 4.2.7.2.686 [place] [id number] [place] [address] DIABETES [facility] 2020-07-12 2020-07-12 Abstract [facility] [id number] 00:00:00 00:00:00 [place] MULTISPEC 350.1.13.10 IALTY 4.2.7.2.686 [place] [id number] [place] [address] DIABETES CLINIC 2020-07-10 2020-07-10 Telephone [facility] [id number] [id number] 00:00:00 00:00:00 [place] MULTISPEC 350.1.13.10 IALTY 4.2.7.2.686 [place] [id number] AND [place] [facility] DIABETES CLINIC 2020-06-20 2020-06-20 Outpatient JAMEY [facility] [id number] SLE 00:00:00 00:00:00 JEROMY 2020-06-14 2020-06-14 Outpatient JAMEY [facility] [id number] SLE 00:00:00 00:00:00 JEROMY Results Test Description Test Time Test Comments Results Result [facility] e Comments XR UPPER GI SERIES 2021-12-06 BA/AIR CONTRAST 09:47:44 GENEVIEVE Moya [facility] CENTERName: LONNY DAMICO : 1955 Sex: M Exam: Upper GI seriesLocation: [id number]: DysphagiaFINDINGS:Ther e was free flow barium through the esophagus but with presbyesophagus along with small sliding hiatal hernia and gastroesophageal reflux to the level of the lower third of the esophagus. No ulcerations or strictures. The stomach, duodenal bulb, and c-loop of the duodenum are unremarkable except for mild rugal thickening suggestive of mild hypertrophic gastritis.. No evidence of ulcerations or masses. Fluoroscopy time was 2 minutes 21 seconds. 9 fluoroscopic spot images were taken.IMPRESSION:Presb yesophagus with small sliding hiatal hernia and mild gastroesophageal reflux. Mild hypertrophic gastritis.Electronical ly signed by: Trenton Henao MD 12/06/2021 9:47 AM [facility]ER (CELLAVISION MANUAL DIFF) 2020-06-08 16:52:00 Test Item [...] (test code 1 % 0-0 H = 2828) NEUTROPHILS - ABS (CELLAVISION)(BEAKER) (test code = [...] CONCENTRATION (CELLAVISION)(BEAKER) (test code = Adequate 3438) Temperature Inspector ID - jose Kwong comments: Slide comments:CBC W/PLT COUNT & AUTO [id number] 08:09:00 Test Item Value Reference Range Interpretation [...] 2801) CBC WITH PLATELET COUNT + MANUAL [id number] 08:09:00 Test Item Value Reference Range Interpretation [...] 0-0 (BEAKER) (test code = 413) POCT-GLUCOSE [id number] 07:41:00 Test Item Value Reference Range Interpretation Comments POC-GLUCOSE METER 121 mg/dL 70-110 H : TESTED A T [facility] 6720 (BEAKER) (test code = [facility], 1538) 34154: Temperature Inspector/Techni john ID = [id number] for AMELIA MCPHERSONA, BRENDONNDY POCT-GLUCOSE [id number] 21:25:00 Test Item Value Reference Range Interpretation Comments POC-GLUCOSE METER 135 mg/dL 70-110 H : TESTED A T [facility] 6720 (BEAKER) (test code = [facility], 1538) 38843: Temperature Inspector/Techni john ID = [id number] for Cecille ochoa Khadijah POCT-GLUCOSE [id number] 16:20:00 Test Item Value Reference Range Interpretation Comments POC-GLUCOSE METER 144 mg/dL 70-110 H : TESTED A T [facility] 6720 (BEAKER) (test code = [facility], 1538) 62724: Temperature Inspector/Techni john ID = [id number] for ZA VALA, ERANDY POCT-GLUCOSE [id number] 11:17:00 Test Item Value Reference Range Interpretation Comments POC-GLUCOSE METER 146 mg/dL 70-110 H : TESTED A T [facility] 6720 (BEAKER) (test code = [facility], 1538) 11538: Temperature Inspector/Techni john ID = [id number] for Dustin talavera Darcie Alexandere (CELLAVISION MANUAL DIFF)2020-06-07 10:40:00 Test Item Value [...] CONCENTRATION Increased (CELLAVISION)(BEAKER) (test code = 3438) Temperature Inspector ID - Carissa OverholtUser comments: Slide comments:[id number] 10:28:00 Test Item Value Reference Range Interpretation Comments PHOSPHORUS (BEAKER) (test code = 3.8 mg/dL 2.3-4.7 604) Temperature Inspector ID - AAHAMIDBASIC METABOLIC [id number] 08:07:00 Test Item Value Reference Range Interpretation [...] S NOT APPLICABLE FOR DIALYSIS PATIEN TS. Temperature Inspector ID - [id number] 07:57:00 Test Item Value Reference Range Interpretation Comments MAGNESIUM (BEAKER) (test code = 2.0 mg/dL 1.6-2.6 627) Temperature Inspector ID - EDASIPOCT-GLUCOSE [id number] 07:52:00 Test Item Value Reference Range Interpretation Comments POC-GLUCOSE METER 126 mg/dL 70-110 H : TESTED A T [facility] 6720 (BEAKER) (test code = [facility] [place], 1538) 88307: Temperature Inspector/Techni john ID = [id number] for CHARLES DIOP CBC WITH PLATELET COUNT + MANUAL [id number] 05:35:00 Test Item Value Reference Range Interpretation [...] = 413) RAD, CHEST, 1 VIEW, NON [id number] 04:49:00Reason for exam:->POD1 pericardial window, evaluate for interval changeShould this be performed at the bedside?->YesFINAL REPORT CLINICAL INDICATION: Postop Comparison: 06/06/2020 The cardiomediastinal contours are stable. The lung volumes remain low. Central pulmonary vascular congestion and bilateral parenchymal opacities are similar within variation of acquisition technique. A tiny left apical pneumothorax is unchanged. Signed: Amberly Aranda Verified Date/Time: 06/07/2020 04:49:46 POCT-GLUCOSE [id number] 21:22:00 Test Item Value Reference Range Interpretation Comments POC-GLUCOSE METER 168 mg/dL 70-110 H : TESTED A T [facility] 6720 (BEAKER) (test code = [facility], 1538) 66912: Temperature Inspector/Techni john ID = [id number] for PE RALES, MARCI POCT-GLUCOSE [id number] 16:48:00 Test Item Value Reference Range Interpretation Comments POC-GLUCOSE METER 115 mg/dL 70-110 H : TESTED A T [facility] 6720 (BEAKER) (test code = [facility], 1538) 22050: Temperature Inspector/Techni john ID = [id number] for ZA CHARLES WEBB BASIC METABOLIC [id number] 12:41:00 Test Item Value Reference Range Interpretation [...] S NOT APPLICABLE FOR DIALYSIS PATIEN TS. Temperature Inspector ID - PIAYA LPOCT-GLUCOSE [id number] 11:43:00 Test Item Value Reference Range Interpretation Comments POC-GLUCOSE METER 190 mg/dL 70-110 H : TESTED A T [facility] 6720 (BEAKER) (test code = [facility], 1538) 23718: Temperature Inspector/Techni john ID = [id number] for CHARLES DIOP POCT-GLUCOSE [id number] 07:31:00 Test Item Value Reference Range Interpretation Comments POC-GLUCOSE METER 135 mg/dL 70-110 H : TESTED A T [facility] 6720 (BEAKER) (test code = [facility], 1538) 01676: Temperature Inspector/Techni john ID = [id number] for Sourav Villavicencio CBC W/PLT COUNT & AUTO [id number] 07:02:00 Test Item Value Reference Range Interpretation [...] = 2801) RAD, CHEST, 1 VIEW, NON [id number] 05:45:00Reason for exam:->POD1 pericardial window, evaluate for [...] tiny left apical pneumothorax. Signed: Miguel Doe Verified Date/Time: 06/06/2020 05:45:02 POCT-GLUCOSE [id number] 23:15:00 Test Item Value Reference Range Interpretation Comments POC-GLUCOSE METER 118 mg/dL 70-110 H : TESTED A T [facility] 6720 (BEAKER) (test code = [facility], 1538) 57167: Temperature Inspector/Techni john ID = [id number] for PE RALES, MARCI POCT-GLUCOSE [id number] 18:06:00 Test Item Value Reference Range Interpretation Comments POC-GLUCOSE METER 111 mg/dL 70-110 H : TESTED A T [facility] 6720 (BEAKER) (test code = [facility], 1538) 27045: Temperature Inspector/Techni john ID = [id number] for Jos Meanso CALCIUM, [id number] 14:37:00 Test Item Value Reference Range Interpretation Comments CALCIUM IONIZED (BEAKER) (test 1.10 mmol/L 1.12-1.27 L code = 698) PH, BLOOD (BEAKER) (test code = 7.45 1810) POCT-GLUCOSE [id number] 14:00:00 Test Item Value Reference Range Interpretation Comments POC-GLUCOSE METER 180 mg/dL 70-110 H : TESTED A T [facility] 6720 (BEAKER) (test code = [facility], 1538) 39348: Temperature Inspector/Techni john ID = [id number] for Ro sekou, Louann BASIC METABOLIC [id number] 07:14:00 Test Item Value Reference Range Interpretation [...] S NOT APPLICABLE FOR DIALYSIS PATIEN TS. Temperature Inspector ID - JIMBO [id number] 07:08:00 Test Item Value Reference Range Interpretation Comments MAGNESIUM (BEAKER) 2.2 mg/dL 1.6-2.6 Specimen slightly (test code = 627) hemolyzed Temperature Inspector ID - JIMBO [id number] 07:08:00 Test Item Value Reference Range Interpretation Comments PHOSPHORUS (BEAKER) 5.3 mg/dL 2.3-4.7 H Specimen slightly (test code = 604) hemolyzed Temperature Inspector ID - JIMBO LCBC (HEMOGRAM ONLY)2020-06-05 06:46:00 [...] 0-0 (BEAKER) (test code = 413) POCT-GLUCOSE [id number] 06:17:00 Test Item Value Reference Range Interpretation Comments POC-GLUCOSE METER 126 mg/dL 70-110 H : TESTED A T [facility] 6720 ([email or web address]) (test code = [employer] [place], 1538) 86906: Temperature Inspector/Techni john ID = [id number] for Sharyn Cotton (contra ct) RAD, CHEST, 1 VIEW, NON [id number] 02:20:00Reason for exam:->POD1 pericardial window, evaluate for [...] contours. Additional findings: None. Signed: Jules Bullard Verified Date/Time: 06/05/2020 02:20:42 POCT-GLUCOSE [id number] 16:06:00 Test Item Value Reference Range Interpretation Comments POC-GLUCOSE METER 199 mg/dL 70-110 H : TESTED A T [facility] 6720 ([employer]) (test code = [employer] [place], 1538) 42901: Temperature Inspector/Techni john ID = [id number] for Beth Sanders POCT-GLUCOSE [id number] 13:04:00 Test Item Value Reference Range Interpretation Comments POC-GLUCOSE METER 238 mg/dL 70-110 H : TESTED A T [facility] 6720 (BEAKER) (test code = [facility], 1538) 15227: Temperature Inspector/Techni john ID = [id number] for Beth Sanders POCT-GLUCOSE [id number] 08:13:00 Test Item Value Reference Range Interpretation Comments POC-GLUCOSE METER 173 mg/dL 70-110 H : TESTED A T [facility] 6720 (BEAKER) (test code = [facility], 1538) 06305: Temperature Inspector/Techni john ID = [id number] for Beth Sanders BASIC METABOLIC [id number] 04:42:00 Test Item Value Reference Range Interpretation [...] S NOT APPLICABLE FOR DIALYSIS PATIEN TS. Temperature Inspector ID - KIMBERLY [id number] 04:40:00 Test Item Value Reference Range Interpretation Comments MAGNESIUM (BEAKER) (test code = 2.0 mg/dL 1.6-2.6 627) Temperature Inspector ID - KIMBERLY MCBC W/PLT COUNT & AUTO [id number] 04:19:00 Test Item Value Reference Range Interpretation [...] = 2801) RAD, CHEST, 1 VIEW, NON [id number] 03:20:00Reason for exam:->POD1 pericardial window, evaluate for [...] Aranda MDReport Verified Date/Time: 06/04/2020 03:20:20 POCT-GLUCOSE [id number] 17:50:00 Test Item Value Reference Range Interpretation Comments POC-GLUCOSE METER 172 mg/dL 70-110 H : TESTED A T [facility] 6720 (BEAKER) (test code [facility], = 1538) 56691: Temperature Inspector/Techni john ID = [id number] for MEGAN NOSA, SARBJIT BLOOD GAS, [id number] 17:22:00 Test Item Value Reference Range Interpretation [...] code = 1819) 40.0 % BLOOD GAS, [id number] 14:39:00 Test Item Value Reference Range Interpretation [...] code = 1819) 40.0 % BASIC METABOLIC [id number] 12:25:00 Test Item Value Reference Range Interpretation [...] S NOT APPLICABLE FOR DIALYSIS PATIEN TS. Temperature Inspector ID Kyle COLBERT [id number] 12:22:00 Test Item Value Reference Range Interpretation Comments PHOSPHORUS (BEAKER) (test code = 6.5 mg/dL 2.3-4.7 H 604) Temperature Inspector TRACE COLBERT [id number] 12:22:00 Test Item Value Reference Range Interpretation Comments MAGNESIUM (BEAKER) (test code = 2.0 mg/dL 1.6-2.6 627) Temperature Inspector TRACE COLBERT FLACTIC ACID, [id number] 12:16:00 Test Item Value Reference Range Interpretation Comments LACTATE BLOOD ARTERIAL (2) 1.2 mmol/L 0.5-2.2 (BEAKER) (test code = 2874) Temperature Inspector ID - SAYRA FPROTHROMBIN TIME/[id number] 11:59:00 Test Item Value Reference Range Interpretation [...] INR is2.5-3.5 for patients wiht mechanical heart valves.[id number] 11:59:00 Test Item Value Reference Range Interpretation Comments FIBRINOGEN LEVEL (BEAKER) (test 524 mg/dl 225-434 H code = 658) [id number] 11:59:00 Test Item Value Reference Range Interpretation [...] = 413) RAD, CHEST, 1 VIEW, NON [id number] 11:37:00Reason for exam:->s/p pericardial window, evaluate for [...] MDReport Verified Date/Time: 06/03/2020 11:37:45 Reading Location: [address] Transitional Reading Room CALCIUM, [id number] 10:43:00 Test Item Value Reference Range Interpretation Comments CALCIUM IONIZED (BEAKER) (test 1.12 mmol/L 1.12-1.27 code = 698) PH, BLOOD (BEAKER) (test code = 7.31 1810) BLOOD GAS, [id number] 10:43:00 Test Item Value Reference Range Interpretation [...] code = 1819) 50.0 % BASIC METABOLIC [id number] 08:08:00 Test Item Value Reference Range Interpretation [...] S NOT APPLICABLE FOR DIALYSIS PATIEN TS. Temperature Inspector ID Kyle COLBERT [id number] 07:02:00 Test Item Value Reference Range Interpretation Comments MAGNESIUM (BEAKER) (test code = 2.1 mg/dL 1.6-2.6 627) Temperature Inspector ID Kyle COLBERT FSARS-COV2/RT-PCR ([facility])2020-06-03 00:00:00 Test Item Value Reference Range Interpretation Comments SARS-COV2/RT-PCR (test code Negative Not Detected, Negative, = 0478129) See external report for linked test SARS-COV-[address] [facility] (test code = 1063436) Negative results do not preclude SARS-CoV-2 infection [...] of the Act.Fact Sheet for Healthcare Pro viders:https://www.[employer]/Documents/Xpert%20Xpress%20SARS%20CoV-2/Fact%20Sh eets/302-3802%84NBOI-IMI-7%20HEALTHCARE%20PROVIDERS%20FACT%20SHEET.pdfFact Sheet for Healthcare Patients:https://www.[employer]/Documents/Xpert%20Xpress%20SARS%20CoV-2/Fact%20Sheets/302-3801%20SARS-COV -2%20PATIENT%20FACT%20SHEET.pdfPerforming Laboratory:[place] [address], [place] [address]PGJU-MVMBQLI [id number] 16:29:00 Test Item Value Reference Range Interpretation Comments POC-GLUCOSE METER 194 mg/dL 70-110 H : TESTED A T [facility] 6720 (ALICIA) (test code = KIMMY Chaney [facility], 1538) 86145: Temperature Inspector/Techni john ID = [id number] for AMELIA WEBB SHAGUFTAWaqas CT, CHEST, WITHOUT [id number] 16:02:00Unlisted Reason for Exam - Click Yes [...] MDReport Verified Date/Time: 06/02/2020 16:02:43 Reading Location: [address] Transitional Reading Room POCT-GLUCOSE [id number] 11:34:00 Test Item Value Reference Range Interpretation Comments POC-GLUCOSE METER 148 mg/dL 70-110 H : [facility] (BEPRECIOUS) (test code = [facility], 1538) 63971: Temperature Inspector/Techni john ID = [id number] for CHARLES DIOP POCT-GLUCOSE [id number] 07:43:00 Test Item Value Reference Range Interpretation Comments POC-GLUCOSE METER 124 mg/dL 70-110 H : TESTED A T [facility] 6720 (BEAKER) (test code = [facility] [place], 1538) 46481: Temperature Inspector/Techni john ID = [id number] for CHARLES DIOP BASIC METABOLIC [id number] 06:35:00 Test Item Value Reference Range Interpretation [...] S NOT APPLICABLE FOR DIALYSIS PATIEN TS. Temperature Inspector ID - JIMBO [id number] 06:25:00 Test Item Value Reference Range Interpretation Comments MAGNESIUM (BEAKER) (test code = 2.1 mg/dL 1.6-2.6 627) Temperature Inspector ID - JIMBO LCBC W/PLT COUNT & AUTO [id number] 04:28:00 Test Item Value Reference Range Interpretation [...] PERCENT (BEAKER) (test code = 2801) POCT-GLUCOSE [id number] 21:21:00 Test Item Value Reference Range Interpretation Comments POC-GLUCOSE METER 127 mg/dL 70-110 H : TESTED A T [facility] 6720 (BEAKER) (test code = [facility], 1538) 20169: Temperature Inspector/Techni john ID = [id number] for PE RALES, MARCI RAD, CHEST, 1 VIEW, NON [id number] 20:04:00Reason for exam:->short of breathShould this be performed at the bedside?->YesFINAL REPORT RAD, CHEST, 1 VIEW, NON DEPT INDICATION: short of breath COMPARISON: May 30, 2020 FINDINGS: Portable frontal view of the chest. IMPRESSION: Support Lines: None Lungs and pleura: Left greater than right airspace disease has increased suggesting worsening pulmonary edema but infection with superimposed atelectasis not excluded. Dwtae-cy-lyybosqo left pleural effusion suspected. Small right pleural effusion not excluded. No pneumothorax.Heart and mediastinum:Stable cardiomegaly. Additional findings: Median sternotomy changes. Signed: Jules Bullard MDReport Verified Date/Time: 06/01/2020 20:04:25 POCT- GLUCOSE [id number] 19:57:00 Test Item Value Reference Range Interpretation Comments POC-GLUCOSE METER 156 mg/dL 70-110 H : TESTED A T [facility] 6720 (BEAKER) (test code = [facility], 1538) 90929: Temperature Inspector/Techni john ID = [id number] for RUSS PARIS POCT-GLUCOSE [id number] 16:47:00 Test Item Value Reference Range Interpretation Comments POC-GLUCOSE METER 159 mg/dL 70-110 H : TESTED A T [facility] 6720 (BEAKER) (test code = [facility] [employer] [facility], 1538) 98924: Temperature Inspector/Techni john ID = [id number] for ZA VALA, ERANDY POCT-GLUCOSE [id number] 11:31:00 Test Item Value Reference Range Interpretation Comments POC-GLUCOSE METER 158 mg/dL 70-110 H : TESTED A T [facility] 6720 (BEAKER) (test code = [facility] [employer] [facility], 1538) 53576: Temperature Inspector/Techni john ID = [id number] for ZA VALA, ERANDY POCT-GLUCOSE [id number] 07:35:00 Test Item Value Reference Range Interpretation Comments POC-GLUCOSE METER 133 mg/dL 70-110 H : TESTED A T [facility] 6720 (BEAKER) (test code = [facility] [employer] [facility], 1538) 97258: Temperature Inspector/Techni john ID = [id number] for CHARLES DIOP BASIC METABOLIC [id number] 07:02:00 Test Item Value Reference Range Interpretation [...] S NOT APPLICABLE FOR DIALYSIS PATIEN TS. Temperature Inspector ID - PIAYA [id number] 06:59:00 Test Item Value Reference Range Interpretation Comments MAGNESIUM (BEAKER) (test code = 2.0 mg/dL 1.6-2.6 627) Temperature Inspector ID - JIMBO LPOCT-GLUCOSE [id number] 20:36:00 Test Item Value Reference Range Interpretation Comments POC-GLUCOSE METER 173 mg/dL 70-110 H : TESTED A T [facility] 6720 (BEAKER) (test code = [facility], 1538) 84739: Temperature Inspector/Techni john ID = [id number] for Khadijah Fitzgerald POCT-GLUCOSE [id number] 16:11:00 Test Item Value Reference Range Interpretation Comments POC-GLUCOSE METER 152 mg/dL 70-110 H : TESTED A T [facility] 6720 (BEAKER) (test code = [facility], 1538) 02170: Temperature Inspector/Techni john ID = [id number] for CHELE COONEY POCT-GLUCOSE [id number] 13:35:00 Test Item Value Reference Range Interpretation Comments POC-GLUCOSE METER 85 mg/dL 70-110 : TESTED A T [facility] 6720 (BEAKER) (test code = [facility] Ch[facility] [place], 1538) 56564: Temperature Inspector/Techni john ID = [id number] for KHADIJAH GLYNN POCT-GLUCOSE [id number] 08:09:00 Test Item Value Reference Range Interpretation Comments POC-GLUCOSE METER 129 mg/dL 70-110 H : TESTED A T [facility] 6720 (BEAKER) (test code = [facility] [place], 1538) 63368: Temperature Inspector/Techni john ID = [id number] for CHELE COONEY BASIC METABOLIC [id number] 07:56:00 Test Item Value Reference Range Interpretation [...] S NOT APPLICABLE FOR DIALYSIS PATIEN TS. Temperature Inspector ID - [id number] 07:34:00 Test Item Value Reference Range Interpretation Comments MAGNESIUM (BEAKER) (test code = 2.1 mg/dL 1.6-2.6 627) Temperature Inspector ID - LACBC (HEMOGRAM ONLY)2020-05-31 06:09:00 Test [...] 0-0 (BEAKER) (test code = 413) POCT-GLUCOSE [id number] 21:30:00 Test Item Value Reference Range Interpretation Comments POC-GLUCOSE METER 111 mg/dL 70-110 H : TESTED A T [facility] 6720 (BEAKER) (test code = [facility], 153) 75001: Temperature Inspector/Techni john ID = [id number] for DA VIS, ALEN POCT-GLUCOSE [id number] 16:34:00 Test Item Value Reference Range Interpretation Comments POC-GLUCOSE METER 122 mg/dL 70-110 H : TESTED A T [facility] 6720 (BEAKER) (test code = [facility], 153) 79926: Temperature Inspector/Techni john ID = [id number] for Do minguez, Sourav POCT-GLUCOSE [id number] 11:46:00 Test Item Value Reference Range Interpretation Comments POC-GLUCOSE METER 146 mg/dL 70-110 H : TESTED A T [facility] 6720 (BEAKER) (test code = [facility], 153) 21647: Temperature Inspector/Techni john ID = [id number] for Do minguez, Sourav RAD, CHEST, 1 VIEW, NON [id number] 09:15:00Reason for exam:->short of breathShould this be [...] changes.Additional findings: None. Signed: JR Bell Robert MDRepemmett Verified Date/Time: 05/30/2020 09:15:42 Reading Location: [facility] [address] Radiology Reading Room POCT- GLUCOSE [id number] 07:07:00 Test Item Value Reference Range Interpretation Comments POC-GLUCOSE METER 138 mg/dL 70-110 H : TESTED A T [facility] 6720 (BEAKER) (test code = [facility] [employer] [facility], 1538) 62757: Temperature Inspector/Techni john ID = [id number] for Do Sourav weber BASIC METABOLIC [id number] 06:46:00 Test Item Value Reference Range Interpretation [...] S NOT APPLICABLE FOR DIALYSIS PATIEN TS. Temperature Inspector ID - [id number] 06:39:00 Test Item Value Reference Range Interpretation Comments MAGNESIUM (BEAKER) (test code = 2.0 mg/dL 1.6-2.6 627) Temperature Inspector ID - EDASICBC (HEMOGRAM ONLY)2020-05-30 06:11:00 Test [...] 0-0 (BEAKER) (test code = 413) POCT-GLUCOSE [id number] 21:08:00 Test Item Value Reference Range Interpretation Comments POC-GLUCOSE METER 88 mg/dL 70-110 : TESTED A T [facility] 6720 (BEAKER) (test code = [facility] [place], 1538) 73381: Temperature Inspector/Techni john ID = [id number] for ALEN CHAPMAN POCT-GLUCOSE [id number] 16:49:00 Test Item Value Reference Range Interpretation Comments POC-GLUCOSE METER 161 mg/dL 70-110 H : TESTED A T [facility] 6720 (BEAKER) (test code = [facility], 1538) 72275: Temperature Inspector/Techni john ID = [id number] for KRISTEN TELLEZ POCT-GLUCOSE [id number] 12:43:00 Test Item Value Reference Range Interpretation Comments POC-GLUCOSE METER 143 mg/dL 70-110 H : TESTED A T [facility] 6720 (BEAKER) (test code = [facility], 1538) 98953: Temperature Inspector/Techni john ID = [id number] for GUTIERREZ SOLER POCT-GLUCOSE [id number] 09:33:00 Test Item Value Reference Range Interpretation Comments POC-GLUCOSE METER 144 mg/dL 70-110 H : TESTED A T [facility] 6720 (BEAKER) (test code = [facility], 1538) 22442: Temperature Inspector/Techni john ID = [id number] for RAFY STEVENS B-TYPE NATRIURETIC FACTOR (BNP)2020-05-29 07:02:00 Test Item Value Reference Range Interpretation Comments B-TYPE NATRIURETIC PEPTIDE (BEAKER) 491 pg/mL 0-100 H (test code = 700) Temperature Inspector ID - DBBASIC METABOLIC [id number] 06:59:00 Test Item Value Reference Range Interpretation [...] S NOT APPLICABLE FOR DIALYSIS PATIEN TS. Temperature Inspector ID - [id number] 06:56:00 Test Item Value Reference Range Interpretation Comments MAGNESIUM (BEAKER) (test code = 2.0 mg/dL 1.6-2.6 627) Temperature Inspector ID - EDASICBC (HEMOGRAM ONLY)2020-05-29 06:45:00 Test [...] 0-0 (BEAKER) (test code = 413) POCT-GLUCOSE [id number] 21:18:00 Test Item Value Reference Range Interpretation Comments POC-GLUCOSE METER 196 mg/dL 70-110 H : TESTED Clarence Pan [facility] 6720 (BEAKER) (test code = [facility] [place], 1538) 85206: Temperature Inspector/Techni john ID = [id number] for Khadijah Fitzgerald POCT-GLUCOSE [id number] 16:44:00 Test Item Value Reference Range Interpretation Comments POC-GLUCOSE METER 220 mg/dL 70-110 H : TESTED A T [facility] 6720 (BEAKER) (test code = [facility], 1538) 69134: Temperature Inspector/Techni john ID = [id number] for CHARLES DIOP POCT-GLUCOSE [id number] 11:13:00 Test Item Value Reference Range Interpretation Comments POC-GLUCOSE METER 205 mg/dL 70-110 H : TESTED A T [facility] 6720 (BEAKER) (test code = [facility], 1538) 29306: Temperature Inspector/Techni john ID = [id number] for CHARLES DIOP POCT-GLUCOSE [id number] 07:18:00 Test Item Value Reference Range Interpretation Comments POC-GLUCOSE METER 163 mg/dL 70-110 H : TESTED A T [facility] 6720 (BEAKER) (test code = [facility], 1538) 18002: Temperature Inspector/Techni john ID = [id number] for CHARLES DIOP BASIC METABOLIC [id number] 05:59:00 Test Item Value Reference Range Interpretation [...] S NOT APPLICABLE FOR DIALYSIS PATIEN TS. Temperature Inspector ID - PIAYA [id number] 05:53:00 Test Item Value Reference Range Interpretation Comments PHOSPHORUS (BEAKER) (test code = 3.2 mg/dL 2.3-4.7 604) Temperature Inspector ID - PIAYA LCBC (HEMOGRAM ONLY)2020-05-28 05:06:00 Test Item Value [...] 0-0 (BEAKER) (test code = 413) POCT-GLUCOSE [id number] 21:28:00 Test Item Value Reference Range Interpretation Comments POC-GLUCOSE METER 219 mg/dL 70-110 H : TESTED A T [facility] 6720 (BEAKER) (test code = [facility], 1538) 63482: Temperature Inspector/Techni john ID = [id number] for Khadijah Fitzgerald POCT-GLUCOSE [id number] 16:43:00 Test Item Value Reference Range Interpretation Comments POC-GLUCOSE METER 182 mg/dL 70-110 H : TESTED A T [facility] 6720 (BEAKER) (test code = [facility], 1538) 23461: Temperature Inspector/Techni john ID = [id number] for MARTIN NTER, HIWITHA POCT-GLUCOSE [id number] 11:48:00 Test Item Value Reference Range Interpretation Comments POC-GLUCOSE METER 184 mg/dL 70-110 H : TESTED A T [facility] 6720 (BEAKER) (test code = [facility], 1538) 08233: Temperature Inspector/Techni john ID = [id number] for MARTIN NTERCHAVEZWITHA POCT-GLUCOSE [id number] 06:59:00 Test Item Value Reference Range Interpretation Comments POC-GLUCOSE METER 150 mg/dL 70-110 H : TESTED A T [facility] 6720 (BEAKER) (test code = [facility], 1538) 32718: Temperature Inspector/Techni john ID = [id number] for MARTIN NTER, HIWITHA BASIC METABOLIC [id number] 05:24:00 Test Item Value Reference Range Interpretation [...] S NOT APPLICABLE FOR DIALYSIS PATIEN TS. Temperature Inspector ID - JIMBO [id number] 05:23:00 Test Item Value Reference Range Interpretation Comments PHOSPHORUS (BEAKER) (test code = 3.1 mg/dL 2.3-4.7 604) Temperature Inspector ID - JIMBO LCBC (HEMOGRAM ONLY)2020-05-27 04:36:00 [...] 0-0 (BEAKER) (test code = 413) POCT-GLUCOSE [id number] 21:17:00 Test Item Value Reference Range Interpretation Comments POC-GLUCOSE METER 217 mg/dL 70-110 H : TESTED A T [facility] 6720 (BEAKER) (test [facility] = [facility] [place], 1538) 8[address]: Temperature Inspector/Techni john ID = [id number] for [facility], HYACINTH POCT-GLUCOSE [id number] 16:12:00 Test Item Value Reference Range Interpretation Comments POC-GLUCOSE METER 193 mg/dL 70-110 H : TESTED A T [facility] 6720 (BEAKER) (test code = KIMMY [facility], 1538) 62202: Temperature Inspector/Techni john ID = [id number] for BRENDON DIOPJUSTAWaqas SARS-COV2/RT-PCR ([facility])2020-05-26 11:56:00 Test Item Value Reference Range Interpretation Comments SARS-COV2/RT-PCR (test Negative Not Detected, Negative, code = 2733010) See external report for linked test SARS-COV-[address] [facility] JOVANNY (test code = 2178636) Negative result for this test determines that [...] 564(g) of the Act.Fact Sheet for Healthcare Providers:https://www.[employer].com/sites/default/files/product/documents/Fact_Shee y_AT_Lzgddmmyb_Uoxx_KIEI-RqL-6.pdfFact Sheet for Healthcare Patients:https://www.[employer].com/sites/default/files/product/ documents/Vpvd_Fyjpy_Kftevgzv_Txml_RWYT-IvU-6.pdfPerforming Laboratory:[facility], [place] [address]EKPZ-CVFVGOU METER 2020-05-26 11:44:00 Test Item Value Reference Range Interpretation Comments POC-GLUCOSE METER 207 mg/dL 70-110 H : Notified RN/MD: (BEAKER) (test code = TESTED AT [facility] 2137 4308) [place], [address]: Temperature Inspector/Techni john ID = [id number] for Veronica Davenport BASIC METABOLIC [id number] 06:54:00 Test Item Value Reference Range Interpretation [...] S NOT APPLICABLE FOR DIALYSIS PATIEN TS. Temperature Inspector ID - JIMBO [id number] 06:51:00 Test Item Value Reference Range Interpretation Comments PHOSPHORUS (BEAKER) (test code = 4.0 mg/dL 2.3-4.7 604) Temperature Inspector ID - JIMBO LCBC (HEMOGRAM ONLY)2020-05-26 05:53:00 Test Item Value [...] (BEAKER) (test code = 412) PLATELET COUNT (AKER) (test 160 K/CU MM 150-450 code = 756) MEAN PLATELET VOLUME (BEAKER) 11.6 fL 9.4-12.4 (test code = 754) NUCLEATED RED BLOOD CELLS 0 /100 WBC 0-0 (AKER) (test code = 413) POCT-GLUCOSE [id number] 18:24:00 Test Item Value Reference Range Interpretation Comments POC-GLUCOSE METER 140 mg/dL 70-110 H : TESTED A T [place] [address] ([facility]) (test code = [facility], [facility]) 65277: Temperature Inspector/Techni john ID = [id number] for AD AMS, LISSETTE POCT-GLUCOSE [id number] 11:53:00 Test Item Value Reference Range Interpretation Comments POC-GLUCOSE METER 226 mg/dL 70-110 H : Notified RN/MD: ([facility]) (test code = TESTED AT [place] [address]) [facility], [address]: Temperature Inspector/Techni john ID = [id number] for Si mmons, Veronica POCT-GLUCOSE [id number] 07:50:00 Test Item Value Reference Range Interpretation Comments POC-GLUCOSE METER 145 mg/dL 70-110 H : Notified RN/MD: ([facility]) (test code = TESTED AT [place] [address]) [facility], [address]: Temperature Inspector/Techni john ID = [id number] for Si mmons, Veronica BLOOD GAS, [id number] 06:42:00 Test Item Value Reference Range Interpretation [...] code = 1819) 32.0 % BASIC METABOLIC [id number] 04:37:00 Test Item Value Reference Range Interpretation [...] S NOT APPLICABLE FOR DIALYSIS PATIEN TS. Temperature Inspector ID - [id number] 04:26:00 Test Item Value Reference Range Interpretation Comments PHOSPHORUS (BEAKER) (test code = 4.9 mg/dL 2.3-4.7 H 604) Temperature Inspector ID - EDASICBC (HEMOGRAM ONLY)2020-05-25 04:09:00 Test [...] = 413) RAD, CHEST, 1 VIEW, NON [id number] 01:00:00Reason for exam:->chest tubesShould this be performed [...] Dimas MDReport Verified Date/Time: 05/25/2020 01:00:30 POCT-GLUCOSE [id number] 23:07:00 Test Item Value Reference Range Interpretation Comments POC-GLUCOSE METER 157 mg/dL 70-110 H : TESTED A T [facility] 6720 (BEAKER) (test code = KIMMY [facility] [place], 1538) [address]: Temperature Inspector/Techni john ID = [id number] for HUMA CHAIREZWaqas POCT-GLUCOSE [id number] 16:09:00 Test Item Value Reference Range Interpretation Comments POC-GLUCOSE METER 207 mg/dL 70-110 H : TESTED A T [facility] 6720 (BEAKER) (test code = [facility], 1538) 76851: Temperature Inspector/Techni john ID = [id number] for FA JYOTSNA, OLAKUNLE POCT-GLUCOSE [id number] 11:59:00 Test Item Value Reference Range Interpretation Comments POC-GLUCOSE METER 247 mg/dL 70-110 H : TESTED A T [facility] 6720 (BEAKER) (test code = [facility], 1538) 07118: Temperature Inspector/Techni john ID = [id number] for FA GOYAL, OLAKUNLE POCT-GLUCOSE [id number] 06:58:00 Test Item Value Reference Range Interpretation Comments POC-GLUCOSE METER 149 mg/dL 70-110 H : TESTED A T [facility] 6720 (BEAKER) (test code = [facility], 1538) 25545: Temperature Inspector/Techni john ID = [id number] for KELLEN CHAIREZ BASIC METABOLIC [id number] 06:42:00 Test Item Value Reference Range Interpretation [...] S NOT APPLICABLE FOR DIALYSIS PATIEN TS. Temperature Inspector ID - [id number] 06:29:00 Test Item Value Reference Range Interpretation Comments PHOSPHORUS (BEAKER) (test code = 4.8 mg/dL 2.3-4.7 H 604) Temperature Inspector ID - NTPCBC (HEMOGRAM ONLY)2020-05-24 05:34:00 Test [...] (BEAKER) (test code = 413) BLOOD GAS, [id number] 05:10:00 Test Item Value Reference Range Interpretation [...] 40.0 % RAD, CHEST, 1 VIEW, NON [id number] 03:52:00Reason for exam:->s/p: CABGShould this be performed at the bedside?->YesFINAL REPORT RAD, CHEST, 1 VIEW, NON DEPT INDICATION: s/p: CABG COMPARISON: Prior day's exam FINDINGS: Portable frontal view of the chest. IMPRESSION: Support Lines: The [place]-Tita catheter has been removed with a right IJ sheath remaining. Otherwise, stable.Lungs and pleura: Unchanged hypoinflated lungs without new consolidation or effusion. No pneumothorax.Heart and mediastinum: Stable contours.Additional findings: None. Signed: Marija Dimas MDReport Verified Date/Time: 05/24/2020 03:52:46 POCT-GLUCOSE [id number] 02:23:00 Test Item Value Reference Range Interpretation Comments POC-GLUCOSE METER 109 mg/dL 70-110 : TESTED A T [facility] 6720 (BEAKER) (test code = CATLANRE Chaney [facility], 1538) 37882: Temperature Inspector/Techni john ID = [id number] for KELLEN CHAIREZ BASIC METABOLIC [id number] 00:21:00 Test Item Value Reference Range Interpretation [...] S NOT APPLICABLE FOR DIALYSIS PATIEN TS. Temperature Inspector ID - DARCIE [id number] 00:18:00 Test Item Value Reference Range Interpretation Comments MAGNESIUM (BEAKER) (test code = 2.2 mg/dL 1.6-2.6 627) Temperature Inspector ID - DARCIE WCBC (HEMOGRAM ONLY)2020-05-24 00:00:00 [...] 0-0 (BEAKER) (test code = 413) POCT-GLUCOSE [id number] 23:59:00 Test Item Value Reference Range Interpretation Comments POC-GLUCOSE METER 133 mg/dL 70-110 H : TESTED A T [facility] 6720 (BEAKER) (test code [facility], = 1538) 61332: Temperature Inspector/Techni john ID = [id number] for DONALDO MERNA RIOS POCT-GLUCOSE [id number] 23:03:00 Test Item Value Reference Range Interpretation Comments POC-GLUCOSE METER 138 mg/dL 70-110 H : TESTED A T [facility] 6720 (BEAKER) (test code [facility], = 1538) 54607: Temperature Inspector/Techni john ID = [id number] for DONALDO DERO, MERNA POCT-GLUCOSE [id number] 21:20:00 Test Item Value Reference Range Interpretation Comments POC-GLUCOSE METER 142 mg/dL 70-110 H : TESTED A T [facility] 6720 (BEAKER) (test code [facility], = 1538) 65274: Temperature Inspector/Techni john ID = [id number] for DONALDO DERO, MERNA POCT-GLUCOSE [id number] 20:25:00 Test Item Value Reference Range Interpretation Comments POC-GLUCOSE METER 145 mg/dL 70-110 H : TESTED A T [facility] 6720 (BEAKER) (test code [facility], = 1538) 80505: Temperature Inspector/Techni john ID = [id number] for DONALDO DERO, MERNA POCT-GLUCOSE [id number] 18:38:00 Test Item Value Reference Range Interpretation Comments POC-GLUCOSE METER 166 mg/dL 70-110 H : TESTED A T [facility] 6720 (BEAKER) (test code = [facility], 1538) 07955: Temperature Inspector/Techni john ID = [id number] for RODRIGUEZ GARCÍA, IVELISSE POCT-GLUCOSE [id number] 17:52:00 Test Item Value Reference Range Interpretation Comments POC-GLUCOSE METER 132 mg/dL 70-110 H : TESTED A T [facility] 6720 (BEAKER) (test code = [facility], 1538) 10402: Temperature Inspector/Techni john ID = [id number] for Be rki, Meti POCT-GLUCOSE [id number] 16:52:00 Test Item Value Reference Range Interpretation Comments POC-GLUCOSE METER 144 mg/dL 70-110 H : TESTED A T [facility] 6720 (BEAKER) (test code = [facility], 1538) 99770: Temperature Inspector/Techni john ID = [id number] for Be rki, Meti POCT-GLUCOSE [id number] 15:09:00 Test Item Value Reference Range Interpretation Comments POC-GLUCOSE METER 157 mg/dL 70-110 H : TESTED A T [facility] 6720 (BEAKER) (test code = [facility], 1538) 56651: Temperature Inspector/Techni john ID = [id number] for Be rki, Meti POCT-GLUCOSE [id number] 15:06:00 Test Item Value Reference Range Interpretation Comments POC-GLUCOSE METER 154 mg/dL 70-110 H : TESTED A T [facility] 6720 (BEAKER) (test code = [facility], 1538) 77763: Temperature Inspector/Techni john ID = [id number] for Be rki, Meti POCT-GLUCOSE [id number] 13:38:00 Test Item Value Reference Range Interpretation Comments POC-GLUCOSE METER 162 mg/dL 70-110 H : TESTED A T [facility] 6720 (BEAKER) (test code = [facility], 1538) 59316: Temperature Inspector/Techni john ID = [id number] for Be rki, Meti POCT-GLUCOSE [id number] 12:50:00 Test Item Value Reference Range Interpretation Comments POC-GLUCOSE METER 135 mg/dL 70-110 H : TESTED A T [facility] 6720 (BEAKER) (test code = [facility], 1538) 58304: Temperature Inspector/Techni john ID = [id number] for Be rki, Meti POCT-GLUCOSE [id number] 12:50:00 Test Item Value Reference Range Interpretation Comments POC-GLUCOSE METER 126 mg/dL 70-110 H : TESTED A T [facility] 6720 (BEAKER) (test code = [facility], 1538) 47881: Temperature Inspector/Techni john ID = [id number] for Be rki, Meti POCT-GLUCOSE [id number] 12:00:00 Test Item Value Reference Range Interpretation Comments POC-GLUCOSE METER 151 mg/dL 70-110 H : TESTED A T [facility] 6720 (BEAKER) (test code = [facility], 1538) 83815: Temperature Inspector/Techni john ID = [id number] for RODRIGUEZ GARCÍA IVELISSE POCT-GLUCOSE [id number] 10:31:00 Test Item Value Reference Range Interpretation Comments POC-GLUCOSE METER 123 mg/dL 70-110 H : TESTED A T [facility] 6720 (BEAKER) (test code = [facility], [facility]) 09728: Temperature Inspector/Techni john ID = [id number] for Be rki, Meti POCT-GLUCOSE [id number] 10:31:00 Test Item Value Reference Range Interpretation Comments POC-GLUCOSE METER 97 mg/dL 70-110 : TESTED A T [facility] 6720 (BEAKER) (test code = [facility], [facility]) 06689: Temperature Inspector/Techni john ID = [id number] for Francisco Javier i, Meti POCT-GLUCOSE [id number] 10:31:00 Test Item Value Reference Range Interpretation Comments POC-GLUCOSE METER 123 mg/dL 70-110 H : TESTED A T [facility] 6720 (BEAKER) (test code = [facility], [facility]) 59107: Temperature Inspector/Techni john ID = [id number] for US ERO, KASANDRA POCT-GLUCOSE [id number] 09:43:00 Test Item Value Reference Range Interpretation Comments POC-GLUCOSE METER 142 mg/dL 70-110 H : TESTED A T [facility] 6720 (BEAKER) (test code = [facility], [facility]) 79146: Temperature Inspector/Techni john ID = [id number] for US ERO, KASANDRA POCT-GLUCOSE [id number] 09:43:00 Test Item Value Reference Range Interpretation Comments POC-GLUCOSE METER 160 mg/dL 70-110 H : TESTED A T [facility] 6720 (BEAKER) (test code = [facility], [facility]) 46906: Temperature Inspector/Techni john ID = [id number] for US ERO, KASANDRA POCT-GLUCOSE [id number] 06:57:00 Test Item Value Reference Range Interpretation Comments POC-GLUCOSE METER 100 mg/dL 70-110 : TESTED A T [facility] 6720 (BEAKER) (test code = [facility], [facility]) 05792: Temperature Inspector/Techni john ID = [id number] for US ERO, KASANDRA [id number] 06:26:00 Test Item Value Reference Range Interpretation Comments ACTIVATED CLOTTING TIME 114 sec : 74 -137 seconds, (BEAKER) (test code = Baseli ne: TESTED AT 441) [address], [facility] 30: Temperature Inspector/Techni john ID = [id number] for BE MARIJA LOERA [id number] 06:26:00 Test Item Value Reference Range Interpretation Comments ACTIVATED CLOTTING TIME 428 sec : 74 -137 seconds, (BEAKER) (test code = Baseli ne: TESTED AT 441) [address], [facility] 30: Temperature Inspector/Techni john ID = [id number] for BE MARIJA LOERA [id number] 06:26:00 Test Item Value Reference Range Interpretation Comments ACTIVATED CLOTTING TIME 439 sec : 74 -137 seconds, (BEAKER) (test code = Baseli ne: TESTED AT 441) [address], [facility] 30: Temperature Inspector/Techni john ID = [id number] for BE MARIJA LOERA [id number] 06:26:00 Test Item Value Reference Range Interpretation Comments ACTIVATED CLOTTING TIME 422 sec : 74 -137 seconds, (BEAKER) (test code = Baseli ne: TESTED AT 441) [address], [facility] 30: Temperature Inspector/Techni john ID = [id number] for BE MARIJA LOERA [id number] 06:26:00 Test Item Value Reference Range Interpretation Comments ACTIVATED CLOTTING TIME 472 sec : 74 -137 seconds, (BEAKER) (test code = Baseli ne: TESTED AT 441) [address], [facility] 30: Temperature Inspector/Techni john ID = [id number] for MARIJA URBAN BASIC METABOLIC [id number] 06:14:00 Test Item Value Reference Range Interpretation [...] S NOT APPLICABLE FOR DIALYSIS PATIEN TS. Temperature Inspector ID - [id number] 05:37:00 Test Item Value Reference Range Interpretation Comments PHOSPHORUS (BEAKER) (test code = 4.0 mg/dL 2.3-4.7 604) Temperature Inspector ID - [id number] 05:37:00 Test Item Value Reference Range Interpretation Comments MAGNESIUM (BEAKER) (test code = 2.0 mg/dL 1.6-2.6 627) Temperature Inspector ID - EDASICBC (HEMOGRAM ONLY)2020-05-23 04:49:00 Test [...] (BEAKER) (test code = 413) LACTIC ACID, [id number] 04:45:00 Test Item Value Reference Range Interpretation Comments LACTATE BLOOD ARTERIAL (2) 2.2 mmol/L 0.5-2.2 (BEAKER) (test code = 2874) Temperature Inspector ID - RAUDELRAD, CHEST, 1 VIEW, NON [id number] 04:06:00Reason for exam:->chest tubesShould this be performed [...] surgical changes.Additional findings: None. Signed: Karon Kirkland [facility] Verified Date/Time: 05/23/2020 04:06:14 BLOOD GAS, [id number] 03:55:00 Test Item Value Reference Range Interpretation [...] code = 1819) 40.0 % OXYGEN SATURATION, [id number] 03:54:00 Test Item Value Reference Range Interpretation Comments O2 SATURATION (MEASURED) (BEAKER) 79.8 % (test code = 1455) POCT-GLUCOSE [id number] 02:46:00 Test Item Value Reference Range Interpretation Comments POC-GLUCOSE METER 195 mg/dL 70-110 H : TESTED A T [facility] 6720 (BEAKER) (test code = [facility], 1538) 53610: Temperature Inspector/Techni john ID = [id number] for KASANDRA SOSA LACTIC ACID, [id number] 01:19:00 Test Item Value Reference Range Interpretation Comments LACTATE BLOOD ARTERIAL (2) 3.1 mmol/L 0.5-2.2 H (BEAKER) (test code = 2874) Temperature Inspector ID - PIAYA LPOCT-GLUCOSE [id number] 00:52:00 Test Item Value Reference Range Interpretation Comments POC-GLUCOSE METER 193 mg/dL 70-110 H : TESTED A T [facility] 6720 (BEAKER) (test code = [facility], 1538) 45397: Temperature Inspector/Techni john ID = [id number] for JULIANNE AMARAL POCT-GLUCOSE [id number] 00:52:00 Test Item Value Reference Range Interpretation Comments POC-GLUCOSE METER 223 mg/dL 70-110 H : TESTED A T [facility] 6720 (BEAKER) (test code = [facility], 1538) 59230: Temperature Inspector/Techni john ID = [id number] for AFSHIN NUNN GLUCOSE-STAT [id number] 00:45:00 Test Item Value Reference Range Interpretation Comments GLUCOSE RANDOM (BEAKER) (test code 198 mg/dL 70-110 H = 652) BLOOD GAS, [id number] 00:45:00 Test Item Value Reference Range Interpretation [...] (BEAKER) (test code = 1819) 40.0 % [id number] 22:34:00 Test Item Value Reference Range Interpretation Comments PHOSPHORUS (BEAKER) (test code = 1.5 mg/dL 2.3-4.7 LL 604) Temperature Inspector ID - [id number] 22:31:00 Test Item Value Reference Range Interpretation Comments MAGNESIUM (BEAKER) (test code = 2.1 mg/dL 1.6-2.6 627) Temperature Inspector ID - BSBASIC METABOLIC [id number] 22:31:00 Test Item Value Reference Range Interpretation [...] S NOT APPLICABLE FOR DIALYSIS PATIEN TS. Temperature Inspector ID - BSLACTIC ACID, [id number] 22:29:00 Test Item Value Reference Range Interpretation Comments LACTATE BLOOD ARTERIAL (2) 7.0 mmol/L 0.5-2.2 HH (BEAKER) (test code = 2874) Temperature Inspector ID - BSPOCT-GLUCOSE [id number] 22:24:00 Test Item Value Reference Range Interpretation Comments POC-GLUCOSE METER 192 mg/dL 70-110 H : TESTED A T [facility] 6720 (BEAKER) (test code = [facility], 153) 50[address]: Temperature Inspector/Techni ojhn ID = [id number] for CA STARDO, JUNDELL CALCIUM, [id number] 22:13:00 Test Item Value Reference Range Interpretation Comments CALCIUM IONIZED (BEAKER) (test 0.99 mmol/L 1.12-1.27 L code = 698) PH, BLOOD (BEAKER) (test code = 7.44 1810) BLOOD GAS, [id number] 22:13:00 Test Item Value Reference Range Interpretation [...] (test code = 1819) 40.0 % POCT-GLUCOSE [id number] 21:00:00 Test Item Value Reference Range Interpretation Comments POC-GLUCOSE METER 239 mg/dL 70-110 H : TESTED A T [facility] 6720 (BEAKER) (test code = [facility], 153) 24887: Temperature Inspector/Techni john ID = [id number] for CA STARDO, JUNDELL POCT-GLUCOSE [id number] 20:59:00 Test Item Value Reference Range Interpretation Comments POC-GLUCOSE METER 279 mg/dL 70-110 H : TESTED A T [facility] 6720 (BEAKER) (test code = [facility], 153) 99569: Temperature Inspector/Techni john ID = [id number] for OS SHALINI PAULSONINE POCT-GLUCOSE [id number] 20:58:00 Test Item Value Reference Range Interpretation Comments POC-GLUCOSE METER 276 mg/dL 70-110 H : TESTED A T [facility] 6720 (BEAKER) (test code = [facility], 1538) 44234: Temperature Inspector/Techni john ID = [id number] for CA JULIANNE MCDONALD LACTIC ACID, [id number] 19:58:00 Test Item Value Reference Range Interpretation Comments LACTATE BLOOD ARTERIAL (2) 11.0 mmol/L 0.5-2.2 HH (BEAKER) (test code = 2874) Temperature Inspector ID - BSBASIC METABOLIC [id number] 19:55:00 Test Item Value Reference Range Interpretation [...] S NOT APPLICABLE FOR DIALYSIS PATIEN TS. Temperature Inspector ID - BSCALCIUM, [id number] 19:46:00 Test Item Value Reference Range Interpretation Comments CALCIUM IONIZED (BEAKER) (test 1.04 mmol/L 1.12-1.27 L code = 698) PH, BLOOD (BEAKER) (test code = 7.34 1810) [id number] 19:45:00 Test Item Value Reference Range Interpretation Comments POTASSIUM (BEAKER) (test code = 3.5 meq/L 3.5-5.1 379) Temperature Inspector ID - [id number] 19:45:00 Test Item Value Reference Range Interpretation Comments GLUCOSE RANDOM (BEAKER) (test code 295 mg/dL 70-105 H = 652) Temperature Inspector ID - BSBLOOD GAS, [id number] 19:41:00 Test Item Value Reference Range Interpretation [...] (BEAKER) (test code = 1819) 40.0 % [id number] 16:59:00 Test Item Value Reference Range Interpretation Comments GLUCOSE RANDOM (BEAKER) (test code 286 mg/dL 70-105 H = 652) [id number] 16:59:00 Test Item Value Reference Range Interpretation Comments POTASSIUM (BEAKER) (test code = 3.6 meq/L 3.5-5.1 379) BASIC METABOLIC [id number] 16:59:00 Test Item Value Reference Range Interpretation [...] S NOT APPLICABLE FOR DIALYSIS PATIEN TS. Temperature Inspector ID - BSLACTIC ACID, [id number] 16:56:00 Test Item Value Reference Range Interpretation Comments LACTATE BLOOD ARTERIAL (2) 7.7 mmol/L 0.5-2.2 HH (BEAKER) (test code = 2874) Temperature Inspector ID - BSOXYGEN SATURATION, [id number] 16:44:00 Test Item Value Reference Range Interpretation Comments O2 SATURATION (MEASURED) (BEAKER) 88.3 % (test code = 1455) BLOOD GAS, [id number] 16:41:00 Test Item Value Reference Range Interpretation [...] (BEAKER) (test code = 413) BLOOD GAS, [id number] 14:01:00 Test Item Value Reference Range Interpretation [...] code = 1819) 50.0 % OXYGEN SATURATION, [id number] 14:00:00 Test Item Value Reference Range Interpretation Comments O2 SATURATION (MEASURED) (BEAKER) 82.8 % (test code = 1455) RAD, CHEST, 1 VIEW, NON [id number] 13:55:00Reason for exam:->post opShould this be performed at the bedside?->YesFINAL REPORT RAD, CHEST, 1 VIEW, NON DEPT INDICATION: 05/19/2020 COMPARISON: May 19, 2020 FINDINGS: Portable frontal view of the chest. IMPRESSION: Support Lines: [place]-Tita tip overlies the pulmonary outflow tract. NG tube descends below the diaphragm. Bilateral chest tubes. Lungs and pleura: Poor inspiration with basilar atelectasis and mild diffuse interstitial opacitiesNo pneumothorax.Heart and mediastinum: Stable contours. Stable surgical changes.Additional findings:None. Signed: Rachna Wallereport Verified Date/Time: 05/22/2020 13:55:44 Reading Location: [facility] [address] Radiology Reading Room Electronically signed by: RACHNA WALLER MD on 020 01:55 [id number] 13:43:00 Test Item Value Reference Range Interpretation [...] thrombosis is within 95-100% range. COMPREHENSIVE METABOLIC [id number] 13:42:00 Test Item Value Reference Range Interpretation [...] S NOT APPLICABLE FOR DIALYSIS PATIEN TS. Temperature Inspector ID - [id number] 13:40:00 Test Item Value Reference Range Interpretation Comments PHOSPHORUS (BEAKER) (test code = 4.0 mg/dL 2.3-4.7 604) Temperature Inspector ID - [id number] 13:40:00 Test Item Value Reference Range Interpretation Comments MAGNESIUM (BEAKER) (test code = 2.2 mg/dL 1.6-2.6 627) Temperature Inspector ID - [id number] 13:40:00 Test Item Value Reference Range Interpretation Comments FIBRINOGEN LEVEL (BEAKER) (test 305 mg/dl 225-434 code = 658) [id number] 13:40:00 Test Item Value Reference Range Interpretation [...] for patients wiht mechanical heart valves.LACTIC ACID, [id number] 13:36:00 Test Item Value Reference Range Interpretation Comments LACTATE BLOOD ARTERIAL (2) 3.9 mmol/L 0.5-2.2 H (BEAKER) (test code = 2874) Temperature Inspector ID - NTPBLOOD GAS, [id number] 13:25:00 Test Item Value Reference Range Interpretation [...] code = 1819) 50.0 % OXYGEN SATURATION, [id number] 13:23:00 Test Item Value Reference Range Interpretation [...] (BEAKER) (test code = 413) SODIUM NA-STAT [id number] 11:46:00 Test Item Value Reference Range Interpretation Comments SODIUM (BEAKER) (test code = 381) 136 meq/L 136-145 POTASSIUM-STAT [id number] 11:46:00 Test Item Value Reference Range Interpretation Comments POTASSIUM (BEAKER) (test code = 4.1 meq/L 3.6-5.5 379) BLOOD GAS, [id number] 11:46:00 Test Item Value Reference Range Interpretation [...] (test code = 1819) 100.0 % GLUCOSE-STAT [id number] 11:46:00 Test Item Value Reference Range Interpretation Comments GLUCOSE RANDOM (BEAKER) (test code 197 mg/dL 70-110 H = 652) HGB/HCT (H&H) - STAT [id number] 11:46:00 Test Item Value Reference Range Interpretation Comments HEMOGLOBIN (BEAKER) (test code = 10.9 g/dL 13.0-16.8 L 410) HEMATOCRIT (BEAKER) (test code = 32.0 % 40.0-50.0 L 411) CALCIUM, [id number] 11:44:00 Test Item Value Reference Range Interpretation Comments CALCIUM IONIZED (BEAKER) (test 1.05 mmol/L 1.12-1.27 L code = 698) PH, BLOOD (BEAKER) (test code = 7.39 1810) POTASSIUM-STAT [id number] 10:23:00 Test Item Value Reference Range Interpretation Comments POTASSIUM (BEAKER) (test code = 4.8 meq/L 3.6-5.5 379) BLOOD GAS, [id number] 10:23:00 Test Item Value Reference Range Interpretation [...] code = 1819) 70.0 % SODIUM NA-STAT [id number] 10:23:00 Test Item Value Reference Range Interpretation Comments SODIUM (BEAKER) (test code = 381) 133 meq/L 136-145 L GLUCOSE-STAT [id number] 10:23:00 Test Item Value Reference Range Interpretation Comments GLUCOSE RANDOM (BEAKER) (test code 186 mg/dL 70-110 H = 652) HGB/HCT (H&H) - STAT [id number] 10:23:00 Test Item Value Reference Range Interpretation Comments HEMOGLOBIN (BEAKER) (test code = 10.1 g/dL 13.0-16.8 L 410) HEMATOCRIT (BEAKER) (test code = 30.0 % 40.0-50.0 L 411) BLOOD GAS, [id number] 09:59:00 Test Item Value Reference Range Interpretation [...] code = 1819) 60.0 % BLOOD GAS, [id number] 09:59:00 Test Item Value Reference Range Interpretation [...] (test code = 1819) 60.0 % GLUCOSE-STAT [id number] 09:59:00 Test Item Value Reference Range Interpretation Comments GLUCOSE RANDOM (BEAKER) (test code 200 mg/dL 70-110 H = 652) HGB/HCT (H&H) - STAT [id number] 09:59:00 Test Item Value Reference Range Interpretation Comments HEMOGLOBIN (BEAKER) (test code = 9.9 g/dL 13.0-16.8 L 410) HEMATOCRIT (BEAKER) (test code = 29.0 % 40.0-50.0 L 411) SODIUM NA-STAT [id number] 09:55:00 Test Item Value Reference Range Interpretation Comments SODIUM (BEAKER) (test code = 381) 136 meq/L 136-145 POTASSIUM-STAT [id number] 09:55:00 Test Item Value Reference Range Interpretation Comments POTASSIUM (BEAKER) (test code = 5.0 meq/L 3.6-5.5 379) SODIUM NA-STAT [id number] 08:22:00 Test Item Value Reference Range Interpretation Comments SODIUM (BEAKER) (test code = 381) 137 meq/L 136-145 POTASSIUM-STAT [id number] 08:22:00 Test Item Value Reference Range Interpretation Comments POTASSIUM (BEAKER) (test code = 3.9 meq/L 3.6-5.5 379) CALCIUM, [id number] 08:22:00 Test Item Value Reference Range Interpretation Comments CALCIUM IONIZED (BEAKER) (test 1.03 mmol/L 1.12-1.27 L code = 698) PH, BLOOD (BEAKER) (test code = 7.43 1810) BLOOD GAS, [id number] 08:22:00 Test Item Value Reference Range Interpretation [...] (test code = 1819) 100.0 % GLUCOSE-STAT [id number] 08:22:00 Test Item Value Reference Range Interpretation Comments GLUCOSE RANDOM (BEAKER) (test code 126 mg/dL 70-110 H = 652) HGB/HCT (H&H) - STAT [id number] 08:22:00 Test Item Value Reference Range Interpretation Comments HEMOGLOBIN (BEAKER) (test code = 12.6 g/dL 13.0-16.8 L 410) HEMATOCRIT (BEAKER) (test code = 37.0 % 40.0-50.0 L 411) [id number] 04:58:00 Test Item Value Reference Range Interpretation Comments MAGNESIUM (BEAKER) (test code = 1.7 mg/dL 1.6-2.6 627) Temperature Inspector TRACE [place] WBASIC METABOLIC [id number] 04:45:00 Test Item Value Reference Range Interpretation [...] S NOT APPLICABLE FOR DIALYSIS PATIEN TS. Temperature Inspector ID - DARCIE [id number] 04:44:00 Test Item Value Reference Range Interpretation Comments PHOSPHORUS (BEAKER) (test code = 3.3 mg/dL 2.3-4.7 604) Temperature Inspector ID - DARCIE WCBC W/PLT COUNT & AUTO [id number] 04:20:00 Test Item Value Reference Range Interpretation [...] PERCENT (BEAKER) (test code = 2801) POCT-GLUCOSE [id number] 22:40:00 Test Item Value Reference Range Interpretation Comments POC-GLUCOSE METER 117 mg/dL 70-110 H : Notified RN/: ([facility]) (test code = TESTED AT [place] [address] 153) JEFF [facility], [address]: Temperature Inspector/Techni john ID = [id number] for Stu Quintana POCT-GLUCOSE [id number] 17:53:00 Test Item Value Reference Range Interpretation Comments POC-GLUCOSE METER 151 mg/dL 70-110 H : TESTED A T [place] [address] ([facility]) (test code = KIMMY Chaney [facility], 153) [address]: Temperature Inspector/Techni john ID = [id number] for AVA VERA HEMOGLOBIN [id number] 13:35:00 Test Item Value Reference Range Interpretation Comments HEMOGLOBIN A1C ([facility]) (test code = 8.0 % 4.3-6.1 H 368) POCT-GLUCOSE [id number] 12:43:00 Test Item Value Reference Range Interpretation Comments POC-GLUCOSE METER 145 mg/dL 70-110 H : TESTED A T [facility] 6720 (BEAKER) (test code = KIMMY Chaney [facility], 1538) [address]: Temperature Inspector/Techni john ID = [id number] for AVA VERA PROTHROMBIN [id number] 11:47:00 Test Item Value Reference Range Interpretation [...] INR is2.5-3.5 for patients wiht mechanical heart valves.[id number] 11:47:00 Test Item Value Reference Range Interpretation Comments PARTIAL THROMBOPLASTIN TIME 28.5 seconds 22.5-36.0 (BEAKER) (test code = 760) POCT-GLUCOSE [id number] 11:43:00 Test Item Value Reference Range Interpretation Comments POC-GLUCOSE METER 156 mg/dL 70-110 H : TESTED A T [facility] 6720 (BEAKER) (test code = [facility] Shiv [facility], 1538) [address]: Temperature Inspector/Techni john ID = [id number] for Darcie Lacy LIPID [id number] 11:35:00 Test Item Value Reference Range Interpretation [...] Borderline 130-159 High 160-189 Very High >=190 Temperature Inspector ID - KIMBERLY MPLATELET AGGREGATION: FUNCTION [id number] 10:24:00 Test Item Value Reference Range Interpretation Comments [id number] Ed Simpson MD (BEAKER) (test code = (electronic 2622) signature) PLATELET COUNT AGG 165 K/CU MM 150-450 (BEAKER) (test code = 8666) ADP (BEAKER) (test code 74 % 62-100 = 5504) PLATELET RICH 204 k/cu mm 200-300 PLASMA(BEAKER) (test code = 2135) PLATELET FUNCTION SCREEN Normal aggregation INTERPRETATION (BEAKER) results with ADP. No (test code = 4654) evidence of platelet dysfunction or P2Y12 inhibitor effect. Platelet Function Screen results may be falsely low with platelet counts<75,000/cu mm.Temperature Inspector ID- [id number]-GLUCOSE [id number] 07:19:00 Test Item Value Reference Range Interpretation Comments POC-GLUCOSE METER 117 mg/dL 70-110 H : TESTED A T [facility] 67[address] (BEAKER) (test code = [place], 1538) [address]: Temperature Inspector/Techni john ID = [id number] for AVA VERA BASIC METABOLIC [id number] 05:43:00 Test Item Value Reference Range Interpretation [...] S NOT APPLICABLE FOR DIALYSIS PATIEN TS. Temperature Inspector ID - KIMBERLY [id number] 05:29:00 Test Item Value Reference Range Interpretation Comments PHOSPHORUS (BEAKER) (test code = 4.3 mg/dL 2.3-4.7 604) Temperature Inspector ID - KIMBERLY [id number] 05:29:00 Test Item Value Reference Range Interpretation Comments MAGNESIUM (BEAKER) (test code = 1.9 mg/dL 1.6-2.6 627) Temperature Inspector ID - KIMBERLY MCBC W/PLT COUNT & AUTO [id number] 04:48:00 Test Item Value Reference Range Interpretation [...] PERCENT (BEAKER) (test code = 2801) POCT-GLUCOSE [id number] 21:49:00 Test Item Value Reference Range Interpretation Comments POC-GLUCOSE METER 124 mg/dL 70-110 H : TESTED A T [place] [address] ([facility]) (test code = [facility], 153) [address]: Temperature Inspector/Techni john ID = [id number] for PH GREGORY RIVAS POCT-GLUCOSE [id number] 17:08:00 Test Item Value Reference Range Interpretation Comments POC-GLUCOSE METER 176 mg/dL 70-110 H : Notified RN/MD: (ALICIA) (test code = TESTED AT [place] [address] 1538) [facility], [address]: Temperature Inspector/Techni john ID = [id number] for OK ELLO, GORETI POCT-GLUCOSE [id number] 12:21:00 Test Item Value Reference Range Interpretation Comments POC-GLUCOSE METER 207 mg/dL 70-110 H : Notified RN/MD: (ALICIA) (test code = TESTED AT [place] [address] 1538) [facility], [address]: Temperature Inspector/Techni john ID = [id number] for OK ELLO, GORETI POCT-GLUCOSE [id number] 07:30:00 Test Item Value Reference Range Interpretation Comments POC-GLUCOSE METER 139 mg/dL 70-110 H : Notified RN/MD: (BEAKER) (test code = TESTED AT [facility] [address]93) [place], [address]: Temperature Inspector/Techni john ID = [id number] for CAYLA LOUIE BASIC METABOLIC [id number] 06:12:00 Test Item Value Reference Range Interpretation [...] S NOT APPLICABLE FOR DIALYSIS PATIEN TS. Temperature Inspector ID - [id number] 05:55:00 Test Item Value Reference Range Interpretation Comments PHOSPHORUS (BEAKER) (test code = 4.3 mg/dL 2.3-4.7 604) Temperature Inspector ID - [id number] 05:55:00 Test Item Value Reference Range Interpretation Comments MAGNESIUM (BEAKER) (test code = 2.0 mg/dL 1.6-2.6 627) Temperature Inspector ID - EDASITROPONIN [id number] 05:53:00 Test Item Value Reference Range Interpretation [...] failure, acidosis, acute neurological disease, and persistent tachyarrhythmia.Temperature Inspector ID - EDASICBC W/PLT COUNT & AUTO [id number] 05:27:00 Test Item Value Reference Range Interpretation [...] 417) IMMATURE GRANULOCYTES-RELATIVE 0 % 0-1 PERCENT (AKER) (test code = 2801) TROPONIN [id number] 00:39:00 Test Item Value Reference Range Interpretation Comments TROPONIN I (AKER) (test code = 0.02 ng/mL 0.00-0.03 397) [...] failure, acidosis, acute neurological disease, and persistent tachyarrhythmia.Temperature Inspector ID - DBPOCT-GLUCOSE METER 2020-05-19 21:44:00 Test Item Value Reference Range Interpretation Comments POC-GLUCOSE METER 209 mg/dL 70-110 H : TESTED A T [facility] 6720 ([facility]) (test code = [facility], 1538) [address]: Temperature Inspector/Techni john ID = [id number] for PH ILIP, GREGORY POCT-GLUCOSE [id number] 20:06:00 Test Item Value Reference Range Interpretation Comments POC-GLUCOSE METER 134 mg/dL 70-110 H : TESTED A T [facility] 6720 ([facility]) (test code = [facility], 1538) [address]: Temperature Inspector/Techni john ID = [id number] for AP URA, ERIC PLATELET AGGREGATION: FUNCTION [id number] 15:53:00 Test Item Value Reference Range Interpretation Comments [id number] Rayne Stratton MD ([facility]) (test code = (electronic 5762) signature) PLATELET COUNT AGG 240 K/CU MM 150-450 (BEAKER) (test code = 2656) ADP (AKER) (test code < % 62-100 L = 4654) PLATELET RICH 276 k/cu mm 200-300 PLASMA(AKER) (test code = 2134) PLATELET FUNCTION SCREEN Decreased aggregation INTERPRETATION (BEAKER) with ADP which (test code = 4655) indicates platelet dysfunction that may be due to medication effect, uremia, or other platelet function disorders. Clinical correlation is required. Platelet Function Screen results may be falsely low with platelet counts<75,000/cu mm.Temperature Inspector ID- [id number] AGGREGATION: FUNCTION SCREEN 2020-05-19 15:47:00 Test Item Value Reference Range Interpretation Comments [id number] Rayne Stratton MD (BEAKER) (test code = [...] may be falsely low with platelet counts<75,000/cu mm.Temperature Inspector ID- [id number] [id number] 14:19:00 Test Item Value Reference Range Interpretation [...] failure, acidosis, acute neurological disease, and persistent tachyarrhythmia.Temperature Inspector ID - KIMBERLY MRAD, CHEST, 1 VIEW, NON [id number] 13:26:00Reason for exam:->chest painShould this be performed at the bedside?->YesFINAL REPORT History: Chest pain Comparison: 05/18/2020 Findings: The lungs are clear. No pleural effusions or pneumothorax. The heart shadow is normal in size. The thoracic aorta is mildly tortuous. Degenerative changes are present in the spine. Impression: No evidence of acutecardiopulmonary disease. Signed: Hunter Monroe MDReport Verified Date/Time: 05/19/2020 13:26:01 Reading Location: [facility] C013T Transitional Reading Room POCT-GLUCOSE [id number] 12:29:00 Test Item Value Reference Range Interpretation Comments POC-GLUCOSE METER 177 mg/dL 70-110 H : TESTED A T [facility] 6720 (BEAKER) (test code = [facility], 1538) [address]: Temperature Inspector/Techni john ID = [id number] for TAJ SANCHEZ HEMOGLOBIN [id number] 10:42:00 Test Item Value Reference Range Interpretation Comments HEMOGLOBIN A1C (BEAKER) (test code = 8.1 % 4.3-6.1 H 368) POCT-GLUCOSE [id number] 09:06:00 Test Item Value Reference Range Interpretation Comments POC-GLUCOSE METER 171 mg/dL 70-110 H : TESTED A T [facility] 6720 (BEAKER) (test code = [facility], 1538) [address]: Temperature Inspector/Techni john ID = [id number] for TAJ SANCHEZ BASIC METABOLIC [id number] 05:40:00 Test Item Value Reference Range Interpretation [...] S NOT APPLICABLE FOR DIALYSIS PATIEN TS. Temperature Inspector ID - KIMBERLY [id number] 05:35:00 Test Item Value Reference Range Interpretation Comments PHOSPHORUS (BEAKER) (test code = 5.2 mg/dL 2.3-4.7 H 604) Temperature Inspector ID - KIMBERLY [id number] 05:35:00 Test Item Value Reference Range Interpretation Comments MAGNESIUM (BEAKER) (test code = 1.9 mg/dL 1.6-2.6 627) Temperature Inspector ID - KIMBERLY MCBC W/PLT COUNT & AUTO [id number] 05:08:00 Test Item Value Reference Range Interpretation [...] PERCENT (BEAKER) (test code = 2801) SARS-COV2/RT-PCR ([facility])2020-05-18 23:20:00 Test Item Value Reference Range Interpretation Comments SARS-COV2/RT-PCR (test Negative Not Detected, Negative, code = 0727956) See external report for linked test SARS-COV-2 PERFORMING LAB [facility] (test code = 3411666) Negative result for this test determines that [...] 564(g) of the Act.Fact Sheet for Healthcare Providers:https://www.PaeDae/sites/default/files/product/documents/Fact_Shee s_RE_Yurfmlfzy_Wjdi_HNNE-AyA-7.pdfFact Sheet for Healthcare Patients:https://www.PaeDae/sites/default/files/product/ documents/Qhrr_Xbmdj_Mxremuaj_Dqcf_MSAH-HxO-3.pdfPerforming Laboratory:[facility], [place] [address]TUTF-[id number] METER 2020-05-18 22:35:00 Test Item Value Reference Range Interpretation Comments POC-GLUCOSE METER 266 mg/dL 70-110 H : TESTED A T [facility] 67[address] ([facility]) (test code = [facility] Shiv [facility], 1538) [address]: Temperature Inspector/Techni john ID = [id number] for FITO TIMMONS HEPATITIS B SURFACE [id number] 17:48:00 Test Item Value Reference Range Interpretation Comments HEPATITIS B SURFACE ANTIGEN (2) Nonreactive Nonreactive (Pro Player ConnectAKER) (test code = 2585) Specimen is considered negative for HBsAg.TSH/FREE T4 IF [id number] 17:48:00 Test Item Value Reference Range Interpretation Comments THYROID STIMULATING HORMONE 1.118 uIU/mL 0.350-4.940 (BEAKER) (test code = 772) Temperature Inspector ID - DBRAD, CHEST, 1 VIEW, NON [id number] 17:39:00Reason for exam:- >chest painShould this be [...] IMPRESSION:No acute cardiopulmonary abnormalities. Signed: Phoebe Carter VerifiedDate/Time: 05/18/2020 17:39:45 Reading Location: [facility] C013 Transitional Reading Room BASIC METABOLIC [id number] 17:32:00 Test Item Value Reference Range Interpretation [...] S NOT APPLICABLE FOR DIALYSIS PATIEN TS. Temperature Inspector ID - [id number] 17:26:00 Test Item Value Reference Range Interpretation Comments PHOSPHORUS (BEAKER) (test code = 4.1 mg/dL 2.3-4.7 604) Temperature Inspector ID - [id number] 17:26:00 Test Item Value Reference Range Interpretation Comments MAGNESIUM (BEAKER) (test code = 1.9 mg/dL 1.6-2.6 627) Temperature Inspector ID - DBLIPID [id number] 17:26:00 Test Item Value Reference Range Interpretation [...] Borderline 130-159 High 160-189 Very High >=190 Temperature Inspector ID - DBHEPATIC FUNCTION [id number] 17:26:00 Test Item Value Reference Range Interpretation [...] (test code = 55 U/L 6-55 347) Temperature Inspector ID - [id number] 17:10:00 Test Item Value Reference Range Interpretation [...] mechanical heart valves.CBC W/PLT COUNT & AUTO [id number] 17:00:00 Test Item Value Reference Range Interpretation [...] PERCENT (BEAKER) (test code = 2801) POCT-GLUCOSE [id number] 15:55:00 Test Item Value Reference Range Interpretation Comments POC-GLUCOSE METER 233 mg/dL 70-110 H : TESTED A T [facility] 6720 ([facility]) (test code = [place], 1538) [address]: Temperature Inspector/Techni john ID = [id number] for AVA VERA
--- NOTE | 2021-12-23 16:54 | P.HP ---
Certification for Inpatient Patient admitted to: Inpatient With expected LOS: >2 Midnights Practitioner: I am a practitioner with admitting privileges, knowledge of patient current condition, hospital course, and medical plan of care. Services: Services provided to patient in accordance with Admission requirements found in Title 42 Section 412.3 of the Code of Federal Regulations Patient History Date of Service: 12/23/21 Reason for admission: Shortness of breath History of Present Illness: 66-year-old gentleman with a history of end-stage renal disease on hemodialysis on Thursday and Fridays, history of diabetes mellitus type 2 presented to [facility] emergency department with a complaint of shortness of breath and hypoxia. Patient reports progressive shortness of breath over the past couple of days, worse with activity. He stated he never missed dialysis, last dialysis was Thursday 3 days ago. He states that his oxygen saturation fell to the low 80s with standing. Also stated he felt very weak last night and could not tolerate taking a shower because of shortness of breath. Checks x-ray done at [facility] emergency department demonstrated trace bilateral pleural effusion and pulmonary vascular congestion. BNP markedly elevated, COVID-19 negative. Patient was hypoxic on room air. Patient was maintained on 2 L oxygen by nasal cannula. ED physician called for patient to be transferred here. Allergies cefuroxime [From Ceftin] Allergy (Verified 11/16/21 03:34) Itching/Hives/Rash latex Allergy (Verified 11/16/21 03:34) Hives naproxen [From Aleve] Allergy (Verified 11/16/21 03:34) jitters Sulfa (Sulfonamide Antibiotics) Allergy (Verified 11/16/21 03:34) Hives amlodipine Adverse Reaction (Verified 11/16/21 03:34) Shortness of breath codeine Adverse Reaction (Verified 11/16/21 03:34) migraine hydrocodone Adverse Reaction (Verified 11/16/21 03:34) migraine tramadol Adverse Reaction (Verified 11/16/21 03:34) Nausea/Vomiting Home Medications: Albuterol Inhaler [Ventolin Inhaler*] 1 puff IN Q6H 12/23/21 Aspirin [Aspirin EC] 1 tab PO DAILY 12/23/21 Atorvastatin Calcium [Lipitor] 1 tab PO DAILY 12/23/21 Azelastine HCl 1 spray IN BID PRN 12/23/21 Budesonide/Formoterol Fumarate [Symbicort 160-4.5 Mcg Inhaler] 2 puff IN BID 12/23/21 Clopidogrel Bisulfate [Plavix*] 1 tab PO DAILY 12/23/21 Duloxetine [Cymbalta *] 1 cap PO DAILY 12/23/21 Ergocalciferol (Vitamin D2) [Vitamin D2] 1 cap PO EVERY 7TH DAY 12/23/21 Furosemide 1 tab PO SEECOM 12/23/21 Gabapentin 1 cap PO TID 12/23/21 Guaifenesin/Dextromethorphan [Coricidin Hbp Chest Pop-Cough] 1 cap PO Q4H 12/23/21 Hydromorphone [Dilaudid*] 1 tab PO Q6H 12/23/21 Insulin Degludec [Tresiba Flextouch U-200] 20 units SQ DAILY 12/23/21 Insulin Regular, Human [Novolin R] 8 units SQ BIDAC 12/23/21 Lactulose [Kristalose] 1 packet PO TID 12/23/21 Magnesium Oxide 1 tab PO DAILY 12/23/21 Metoprolol Succinate [Toprol Xl*] 1 tab PO SEECOM 12/23/21 Montelukast [Singulair*] 1 tab PO DAILY 12/23/21 Vit B Comp C/Folic Acid/Vit D3 [Dialyvite 800 Plus D Wafer] 1 tab PO DAILY 12/23/21 buPROPion HCl [Wellbutrin Sr] 1 tab PO BID 12/23/21 - Past Medical/Surgical History Has patient received pneumonia vaccine in the past: No Diabetic: Yes -: Asbestosis -: Diabetes mellitus type 2, insulin dependent -: GERD -: Restless leg syndrome -: Chronic pain neck, arms, shoulder, back -: HTN -: Neuropathy -: ESRD on HD -: Hyperlipidemia -: Former tobacco use -: Back sx x2 -: Cholecystectomy -: Hernia repair -: Heart catheterization, stent placement Psychosocial/ Personal History: Patient is - Family History Mother -: Heart disease, Diabetes Father -: Other (see notes) Notes: alziehmers - Social History Smoking Status: Never smoker Alcohol use: No CD- Drugs: No Caffeine use: No Review of Systems Other: Except as documented, all other systems reviewed and negative. Physical Examination - Physical Exam General: Alert, In no apparent distress, Oriented x3 HEENT: Mucous membr. moist/pink Neck: Supple, JVD not distended Respiratory: Clear to auscultation bilaterally, Normal air movement Cardiovascular: No edema, Regular rate/rhythm, Normal S1 S2, No murmurs Capillary refill: <2 Seconds Gastrointestinal: Normal bowel sounds, Soft and benign, Non-distended, No tenderness Musculoskeletal: No swelling, No tenderness Integumentary: No rashes, No erythema, No cyanosis Neurological: Normal speech, Normal strength at 5/5 x4 extr, Cranial nerves 3-12 intact Lymphatics: No axilla or inguinal lymphadenopathy Assessment and Plan - Problems (Diagnosis) (1) Pulmonary edema Current Visit: Yes Status: Acute (2) End-stage renal disease on hemodialysis Current Visit: Yes Status: Acute (3) Acute respiratory failure with hypoxia Current Visit: Yes Status: Acute (4) Diabetes mellitus Current Visit: No Status: Acute Qualifiers: Diabetes mellitus type: type 2 Diabetes mellitus shelter insulin use: with superintendent container terminal use Diabetes mellitus complication status: with kidney complications Diabetes mellitus complication detail: with chronic kidney disease Chronic kidney disease stage: stage 4 (severe) Qualified Code(s): E11.22 - Type 2 diabetes mellitus with diabetic chronic kidney disease; N18.4 - Chronic kidney disease, stage 4 (severe); 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 Supplemental oxygen as needed. Nephrology consulted, Dr. Pereira informed for hemodialysis today. Patient dry weight for hemodialysis by Dr. Pereira. Reconcile and continue home medications. Insulin sliding scale for glucose management. Continue midodrine for hypotension Bronchodilators as needed. PT consult. - Advance Directives Does patient have a Living Will: No Does patient have a Durable POA for Healthcare: No
[2021-12-23] MEDS ORDERED: GLUCAGON 1 MG/VIAL IM PRN (17:11)
[2021-12-23] MEDS: INSULIN -REGULAR HUMAN 50 UNIT/0.5 ML ML SQ SCH ×2 (17:11→21:00)
[2021-12-23] MEDS ORDERED: ALBUTEROL 2.5 MG/3 ML NEB SOL NEB PRN (17:11)
[2021-12-23] MEDS ORDERED: D50W 25 GM/50 ML SYRINGE IV PRN (17:11)
[2021-12-23] MEDS ORDERED: D10W 250 ML BAG IV PRN (17:34)
[2021-12-23] MEDS: HEPARIN 5000 UNIT/ML 1 ML VIAL SQ SCH (17:52)
--- NOTE | 2021-12-23 22:13 | P.CNS ---
Date of Consult: 12/23/21 Reason for Consult: ESRD Requesting Physician: sonny payan Chief Complaint: Shortness of breath History of Present Illness: 66-year-old gentleman with a history of end-stage renal disease on hemodialysis on Thursday and Fridays, history of diabetes mellitus type 2 presented to [facility] emergency department with a complaint of shortness of breath and hypoxia. Patient reports progressive shortness of breath over the past couple of days, worse with activity. He stated he never missed dialysis, last dialysis was Thursday 3 days ago. He states that his oxygen saturation fell to the low 80s with standing. Also stated he felt very weak last night and could not tolerate taking a shower because of shortness of breath. Checks x-ray done at [facility] emergency department demonstrated trace bilateral pleural effusion and pulmonary vascular congestion. BNP markedly elevated, COVID-19 negative. Patient was hypoxic on room air. Patient was maintained on 2 L oxygen by nasal cannula. ED physician called for patient to be transferred here. Allergies cefuroxime [From Ceftin] Allergy (Verified 11/16/21 03:34) Itching/Hives/Rash latex Allergy (Verified 11/16/21 03:34) Hives naproxen [From Aleve] Allergy (Verified 11/16/21 03:34) jitters Sulfa (Sulfonamide Antibiotics) Allergy (Verified 11/16/21 03:34) Hives amlodipine Adverse Reaction (Verified 11/16/21 03:34) Shortness of breath codeine Adverse Reaction (Verified 11/16/21 03:34) migraine hydrocodone Adverse Reaction (Verified 11/16/21 03:34) migraine tramadol Adverse Reaction (Verified 11/16/21 03:34) Nausea/Vomiting Home medications list reviewed: Yes Home Medications: Albuterol Inhaler [Ventolin Inhaler*] 1 puff IN Q6H 12/23/21 Aspirin [Aspirin EC] 1 tab PO DAILY 12/23/21 Azelastine HCl 1 spray IN BID PRN 12/23/21 Budesonide/Formoterol Fumarate [Symbicort 160-4.5 Mcg Inhaler] 2 puff IN BID 12/23/21 Clopidogrel Bisulfate [Plavix*] 1 tab PO DAILY 12/23/21 Duloxetine [Cymbalta *] 3 cap PO BEDTIME 12/23/21 Ergocalciferol (Vitamin D2) [Vitamin D2] 1 cap PO EVERY 7TH DAY 12/23/21 Furosemide 1 tab PO SEECOM 12/23/21 Gabapentin 1 cap PO BEDTIME 12/23/21 Guaifenesin/Dextromethorphan [Coricidin Hbp Chest Pop-Cough] 1 cap PO Q4H 12/23/21 Hydromorphone [Dilaudid*] 1 tab PO Q6H 12/23/21 Insulin Degludec [Tresiba Flextouch U-200] 20 units SQ DAILY 12/23/21 Insulin Regular, Human [Novolin R] 8 units SQ BIDAC 12/23/21 Lactulose [Kristalose] 1 packet PO TID 12/23/21 Magnesium Oxide 1 tab PO DAILY 12/23/21 Montelukast [Singulair*] 1 tab PO DAILY 12/23/21 Vit B Comp C/Folic Acid/Vit D3 [Dialyvite 800 Plus D Wafer] 1 tab PO DAILY 12/23/21 buPROPion HCl [Wellbutrin Sr] 1 tab PO BID 12/23/21 Amitriptyline HCl 1 tab PO BEDTIME 12/24/21 Cholecalciferol (Vitamin D3) [Vitamin D 5,000 IU Cap*] 1 cap PO DAILY 12/24/21 Docusate [Colace Cap*] 1 cap PO DAILY 12/24/21 Fludrocortisone Acetate 1 tab PO DAILY 12/24/21 Heparin Sodium,Porcine [Heparin Sodium] 1 syr SQ Q12H 12/24/21 Midodrine HCl 2 tab PO BID 12/24/21 Nebivolol HCl [Bystolic] 1 tab PO DAILY 12/24/21 Pantoprazole Sodium 1 tab PO DAILY 12/24/21 Tamsulosin HCl 1 tab PO BEDTIME 12/24/21 calcitrioL [Rocaltrol] 2 cap PO DAILY 12/24/21 - Past Medical/Surgical History Diabetic: Yes -: Asbestosis -: Diabetes mellitus type 2, insulin dependent -: GERD -: Restless leg syndrome -: Chronic pain neck, arms, shoulder, back -: HTN -: Neuropathy -: ESRD on HD followed by Dr. Pereira -: Hyperlipidemia -: Former tobacco use -: Back sx x2 -: Cholecystectomy -: Hernia repair -: Heart catheterization, stent placement Psychosocial/ Personal History: Patient is - Family History Mother Medical History: Heart disease, Diabetes Father Medical History: Other (see notes) Notes: alziehmers - Social History Alcohol use: No CD- Drugs: No Caffeine use: No Review of Systems 10-point ROS is otherwise unremarkable General: Weakness, Malaise Respiratory: Shortness of Breath Neurological: Weakness Physical Examination Temp Pulse Resp BP Pulse Ox 97.6 F 87 16 142/72 H 100 12/23/21 16:00 12/23/21 16:00 12/23/21 16:00 12/23/21 16:00 12/23/21 16:00 General: Oriented x3, Cooperative, Mild distress HEENT: Atraumatic Neck: Supple Respiratory: Diminished Cardiovascular: Regular rate/rhythm, Edema Gastrointestinal: Soft and benign, Non-distended Musculoskeletal: No clubbing, No contractures Integumentary: No rashes, No cyanosis Neurological: Normal speech Blood work reviewed in the chart. Conclusions/Impression: ESRD -Acute HD ordered Chronic hypotension -Continue Midodrine EDITA -Nocturnal CPAP Diastolic CHF, A/C -Acute HD with UF DM II with CKD & Polyneuropathy -RISS Anemia in CKD -Start Retacrit CKD MBD -Start Calcitriol BPH with LUTS -Continue Flomax Thank you kindly for the consultation.
[2021-12-23] MEDS: MIDODRINE HCL 5 MG TABLET PO SCH (22:42)
[2021-12-23] MEDS: TAMSULOSIN 0.4 MG SR CAP PO SCH (22:43)
[2021-12-23] MEDS: INSULIN LISPRO 100 UNIT/1 ML SQ SCH (22:44)
[2021-12-23] MEDS: GABAPENTIN 300 MG CAP PO PRN (23:52)
[2021-12-24] MEDS: HEPARIN 5000 UNIT/ML 1 ML VIAL SQ SCH ×3 (00:07→16:04)
[2021-12-24 04:09] LABS: Absolute Lymphocytes (CBC) 1.7 K/uL (0.7-4.9); Lymphocytes % 13.9 % (15.3-44.8)
[2021-12-24 04:34] LABS: Phosphorus 3.3 mg/dL (2.5-4.9); Potassium 3.6 mmol/L (3.5-5.1); Thyroid Stimulating Hormone 1.55 uIU/mL (0.360-3.740)
--- NOTE | 2021-12-24 06:34 | P.PN ---
Date of Service: 12/24/21 Subjective: Underwent dialysis last night, no significant change in shortness of breath Still feels very short of breath, pleasant in between words when talking Lightheaded this morning when sitting up ROS: 10 point ROS as noted above, otherwise negative Physical exam GEN: Alert, oriented, short of breath HEENT: Normal conjunctiva, sclera anicteric CV: Regular rate and rhythm, trace b/l pedal edema Pulm: Labored respirations on 3 L nasal cannula, diminished at bases bilaterally ABD: Soft, nontender, nondistended Neuro: normal affect, moves all extremities Problem List Acute hypoxemic respiratory failure secondary to pulmonary edema ESRD - HD DM2, insulin dependent EDITA on nocturnal BIPAP h/o syncope orthostatic hypotension with h/o hypertension CAD status post CABG 2019 wean O2 as tolerated Nephrology consulted for hemodialysis Patient unsure of all his home medication list, will bring them in today Patient spent several days in the hospital about a month ago for similar symptoms. At that time underwent dialysis and was also felt to be partly due to polypharmacy Unclear if patient restarted some of the medications that were discontinued during the hospitalization 1 month ago, he is unsure Pulmonology consulted Insulin sliding scale for glucose management. Continue midodrine for orthostatic hypotension Bronchodilators as needed. PT consulted Code: full Dispo: home with home health, ~2 days Time Spent Managing Pts Care (In Minutes): 35
--- NOTE | 2021-12-24 07:11 | RAD REPORT ---
EXAM DESCRIPTION: RAD - Chest Single View - 12/24/2021 5:41 am CLINICAL HISTORY: f/u b/l opacities COMPARISON: Chest Single View dated 11/18/2021; Chest Single View dated 11/15/2021; Chest Single View dated 08/20/2021; Chest Single View dated 08/20/2021; Chest For Pe Angio dated 11/16/2021 FINDINGS: Lines: None. Lungs: No evidence of edema or pneumonia. Pleural: Pleural effusions, right greater than left which are similar to 11/18/2021. Cardiac: Cardiomegaly. Sternotomy. Bones: No acute fractures. Other: IMPRESSION: Similar small bilateral effusions, right greater the left. This presumably underlying at electasis. No other acute process identified.
[2021-12-24] MEDS: INSULIN -REGULAR HUMAN 50 UNIT/0.5 ML ML SQ SCH ×4 (07:30→20:33)
[2021-12-24] MEDS ORDERED: POTASSIUM 25 MEQ EFFERV TAB PO ONE (09:00)
[2021-12-24] MEDS: COENZYME Q10- 200 MG CAP PO SCH (09:05)
[2021-12-24] MEDS: DOCUSATE NA 100 MG CAP PO SCH ×2 (09:06→20:30)
[2021-12-24] MEDS: VITAMIN D 5,000 UNIT CAP PO SCH (09:06)
[2021-12-24] MEDS: CALCITROL 0.25 MCG CAP PO SCH (09:06)
[2021-12-24] MEDS: MULTIVITAMINS,THERAPEUT 1 TAB PO SCH (09:06)
[2021-12-24] MEDS: MIDODRINE HCL 5 MG TABLET PO SCH ×4 (09:07→20:43)
[2021-12-24] MEDS: INSULIN LISPRO 100 UNIT/1 ML SQ SCH ×2 (09:07→20:30)
[2021-12-24] MEDS: NEPRO SHAKE 237 ML CAN PO SCH ×3 (09:08→20:31)
[2021-12-24] MEDS: TAMSULOSIN 0.4 MG SR CAP PO SCH (20:30)
[2021-12-24] MEDS: AMITRIPTYLINE 25 MG TAB PO SCH (20:30)
--- NOTE | 2021-12-24 21:19 | P.PN ---
Date of Service: 12/24/21 Vital Signs Temp Pulse Resp BP Pulse Ox 96.9 F 101 H 18 150/76 H 94 12/24/21 20:00 12/24/21 20:00 12/24/21 20:00 12/24/21 20:00 12/24/21 20:00 Medications Albuterol Sulfate (Albuterol 2.5 Mg/3 Ml Neb Jeanne) 2.5 mg NEB [id number] PRN PRN Reason: SHORTNESS OF BREATH Amitriptyline HCl (Amitriptyline 25 Mg Tab) 25 mg PO Q24H [facility] Last Admin: 12/24/21 20:30 Dose: 25 mg Documented by: Calcitriol (Calcitrol 0.25 Mcg Cap) 0.5 mcg PO DAILY [facility] Last Admin: 12/24/21 09:06 Dose: 0.5 mcg Documented by: Cholecalciferol (Vitamin D 5,000 Unit Cap) 5,000 unit PO DAILY [facility] Last Admin: 12/24/21 09:06 Dose: 5,000 unit Documented by: Coenzyme Q10 (Coenzyme Q10- 200 Mg Cap) 200 mg PO DAILY [facility] Last Admin: 12/24/21 09:05 Dose: 200 mg Documented by: Dextrose (D10w 250 Ml Bag) 125 ml IV PRN PRN; Protocol PRN Reason: PER HYPOGLYCEMIA PROTOCOL Last Admin: 12/24/21 13:06 Dose: 125 ml Documented by: Docusate Sodium (Docusate Na 100 Mg Cap) 100 mg PO BID [facility] Last Admin: 12/24/21 20:30 Dose: 100 mg Documented by: Enteral Nutritional Formula (Nepro Shake 237 Ml Can) 237 ml PO TID [facility] Last Admin: 12/24/21 20:31 Dose: 237 ml Documented by: Epoetin Naseem (Epoetin 4,000 Unit/Ml Vial) 4,000 unit SQ M,W,F [facility] Gabapentin (Gabapentin 300 Mg Cap) 300 mg PO TID PRN PRN Reason: Pain scale 2-4 (Mild) Last Admin: 12/23/21 23:52 Dose: 300 mg Documented by: Glucagon (Glucagon 1 Mg/Vial) 1 mg IM 1X PRN; Protocol PRN Reason: HYPOGLYCEMIA Heparin Sodium (Porcine) (Heparin 5000 Unit/Ml 1 Ml Vial) 5,000 unit SQ Q8HR [facility] Last Admin: 12/24/21 16:04 Dose: 5,000 unit Documented by: Heparin Sodium (Porcine) (Heparin 1,000 Unit/Ml Vial) 4,000 unit IV EVERY HD PRN PRN Reason: DIALYSIS Last Admin: 12/23/21 18:38 Dose: 4,000 unit Documented by: Insulin Human Lispro (Insulin Lispro 100 Unit/1 Ml) 8 unit SQ BID [facility] Last Admin: 12/24/21 20:30 Dose: 8 unit Documented by: Insulin Human Regular (Insulin -Regular Human 50 Unit/0.5 Ml Ml) 0 unit SQ ACHS [facility]; Protocol Last Admin: 12/24/21 20:33 Dose: Not Given Documented by: Midodrine (Midodrine Hcl 5 Mg Tablet) 10 mg PO TID [facility] Last Admin: 12/24/21 20:43 Dose: Not Given Documented by: Ondansetron HCl (Ondansetron 4 Mg/2 Ml Vial) 4 mg IV Q6HP PRN PRN Reason: NAUSEA / VOMITING Sodium Chloride (Flush Normal Saline 10 Ml) 10 ml IV BID [facility] Last Admin: 12/24/21 20:31 Dose: 10 ml Documented by: Tamsulosin HCl (Tamsulosin 0.4 Mg Sr Cap) 0.8 mg PO BEDTIME [facility] Last Admin: 12/24/21 20:30 Dose: 0.8 mg Documented by: Vitamin B Complex/Vit C/Folic Acid (Multivitamins,Therapeut 1 Tab) 1 tab PO DAILY [facility] Last Admin: 12/24/21 09:06 Dose: 1 tab Documented by: Lab Results (last 24 hrs) 12/24/21 19:23: POC Glucose 162 H 12/24/21 15:57: POC Glucose 177 H 12/24/21 14:34: POC Glucose 158 H 12/24/21 13:00: POC Glucose 52 L 12/24/21 12:24: POC Glucose 65 12/24/21 12:04: POC Glucose 69 12/24/21 08:02: POC Glucose 93 12/24/21 03:43: Cortisol 12.56 12/24/21 03:43: Sodium 143, Potassium 3.6, Chloride 109 H, Carbon Dioxide 31, BUN 14, Creatinine 3.86 H, Estimated GFR 16 L, Glucose 82, Uric Acid 3.0 L D, Calcium 9.4, Phosphorus 3.3, Magnesium 2.0 D, NT-Pro-B Natriuret Pep 69134 H, TSH 1.550 12/24/21 03:43: WBC 12.5 H, RBC 3.60 L, Hgb 11.4 L, Hct 35.0 L, MCV 97.1, MCH 31.7, MCHC 32.7, RDW 13.9, Plt Count 383, MPV 8.0, Neutrophils % 76.2 H, Lymphocytes % 13.9 L, Monocytes % 6.5, Eosinophils % 2.3, Basophils % 1.1, Abso lute Neutrophils 9.6 H, Absolute Lymphocytes 1.7, Absolute Monocytes 0.8, Absolute Eosinophils 0.3, Absolute Basophils 0.1, ESR Westergren 62 H 12/23/21 22:23: POC Glucose 127 H Assessment/ Plan: Nephrology Persistent dyspnea Fatigue and weakness No chest pain No acute events overnight Vitals, medications, blood work and imaging reviewed in the chart. General: Oriented x3, Cooperative, Mild distress HEENT: Atraumatic Neck: Supple Respiratory: Diminished Cardiovascular: Regular rate/rhythm, No Edema Gastrointestinal: Soft and benign, Non-distended Musculoskeletal: No clubbing, No contractures Integumentary: No rashes, No cyanosis Neurological: Normal speech Blood work reviewed in the chart. EXAM DESCRIPTION: RAD - Chest Single View - 12/24/2021 5:41 am CLINICAL HISTORY: f/u b/l opacities COMPARISON: Chest Single View dated 11/18/2021; Chest Single View dated 11/15/2021; Chest Single View dated 08/20/2021; Chest Single View dated 08/20/2021; Chest For Pe Angio dated 11/16/2021 FINDINGS: Lines: None. Lungs: No evidence of edema or pneumonia. Pleural: Pleural effusions, right greater than left which are similar to 11/18/2021. Cardiac: Cardiomegaly. Sternotomy. Bones: No acute fractures. IMPRESSION: Similar small bilateral effusions, right greater the left. This presumably underlying atelectasis. No other acute process identified. Conclusions/Impression: ESRD -HD TIW Chronic hypotension -Continue Midodrine EDITA -Nocturnal CPAP Diastolic CHF, A/C -Acute HD with UF DM II with CKD & Polyneuropathy -RISS Anemia in CKD -Continue Retacrit CKD MBD -Continue Calcitriol BPH with LUTS -Continue Flomax
[2021-12-24] MEDS ORDERED: AMITRIPTYLINE 25 MG TAB PO SCH (23:00)
[2021-12-25] MEDS: HEPARIN 5000 UNIT/ML 1 ML VIAL SQ SCH ×3 (01:11→17:32)
[2021-12-25] MEDS ORDERED: MORPHINE 2 MG/ML SYR IV ONE (02:11)
[2021-12-25 05:54] LABS: Absolute Lymphocytes (CBC) 2.2 K/uL (0.7-4.9); Hematocrit 35.8 % (39.6-49.0); Lymphocytes % 17.4 % (15.3-44.8); MPV 8.2 fL (7.6-11.3); RBC Red Blood Cell Count 3.63 M/uL (4.33-5.43)
[2021-12-25 06:15] LABS: Albumin 2.5 g/dL (3.4-5.0); Bilirubin Total 0.3 mg/dL (0.2-1.0); Magnesium 2.1 mg/dL (1.8-2.4); Potassium 4.3 mmol/L (3.5-5.1); Protein, Total 7.3 g/dL (6.4-8.2)
--- NOTE | 2021-12-25 06:26 | P.PN ---
Date of Service: 12/25/21 Subjective: minimal change, still short of breath, felt like almost passing out when trying to get up to bathroom ROS: 10 point ROS as noted above, otherwise negative Physical exam GEN: Alert, oriented, short of breath HEENT: Normal conjunctiva, sclera anicteric CV: Regular rate and rhythm, trace b/l pedal edema Pulm: Labored respirations on 3 L nasal cannula, diminished at bases bilaterally, tachypneic ABD: Soft, nontender, nondistended Neuro: normal affect, moves all extremities Problem List Acute hypoxemic respiratory failure secondary to pulmonary edema ESRD - HD DM2, insulin dependent EDITA on nocturnal BIPAP h/o syncope orthostatic hypotension with h/o hypertension CAD status post CABG 2019 wean O2 as tolerated Nephrology consulted for hemodialysis Patient unsure of all his home medication list, will bring them in today Patient spent several days in the hospital about a month ago for similar symptoms. At that time underwent dialysis and was also felt to be partly due to polypharmacy, possible serotonin syndrome Unclear if patient restarted some of the medications that were discontinued during the hospitalization 1 month ago brought list of medications from home, which includes the medications he was supposed to stop; also included midodrine and fludrocortisone, which is likely for orthostatic hypotension Pulmonology consulted Insulin sliding scale for glucose management restarted fludrocortisone, midodrine. recheck orthostatics Bronchodilators as needed. PT consulted Code: full Dispo: may need SnF vs home with home health, ~2 days Time Spent Managing Pts Care (In Minutes): 35
[2021-12-25] MEDS: INSULIN -REGULAR HUMAN 50 UNIT/0.5 ML ML SQ SCH ×4 (07:30→20:52)
[2021-12-25] MEDS: INSULIN LISPRO 100 UNIT/1 ML SQ SCH ×2 (09:00→21:00)
[2021-12-25] MEDS: DOCUSATE NA 100 MG CAP PO SCH ×3 (09:00→20:51)
[2021-12-25] MEDS: NEPRO SHAKE 237 ML CAN PO SCH ×3 (09:00→20:52)
[2021-12-25] MEDS ORDERED: DULERA 100/5 (MOMETASONE/FORMOTEROL) INHALER IH SCH (09:00)
[2021-12-25] MEDS: MIDODRINE HCL 5 MG TABLET PO SCH (09:28)
[2021-12-25] MEDS: GABAPENTIN 300 MG CAP PO PRN ×2 (09:35→17:42)
[2021-12-25] MEDS: ARFORMOTEROL TARTRATE 15 MCG/2 ML VIAL.NEB NEB SCH ×2 (12:44→20:15)
--- NOTE | 2021-12-25 12:46 | P.CNS ---
Date of Consult: 12/25/21 Reason for Consult: Dyspnea on exertion Chief Complaint: Shortness of breath History of Present Illness: Patient is 66 years of age recurrent hospital admission he comes complains of dyspnea on mild exertion since lengthy hospital stay including rehab stay and is still complaining of shortness of breath unable to function at home Allergies cefuroxime [From Ceftin] Allergy (Verified 11/16/21 03:34) Itching/Hives/Rash latex Allergy (Verified 11/16/21 03:34) Hives naproxen [From Aleve] Allergy (Verified 11/16/21 03:34) jitters Sulfa (Sulfonamide Antibiotics) Allergy (Verified 11/16/21 03:34) Hives amlodipine Adverse Reaction (Verified 11/16/21 03:34) Shortness of breath codeine Adverse Reaction (Verified 11/16/21 03:34) migraine hydrocodone Adverse Reaction (Verified 11/16/21 03:34) migraine tramadol Adverse Reaction (Verified 11/16/21 03:34) Nausea/Vomiting Home Medications: Albuterol Inhaler [Ventolin Inhaler*] 1 puff IN Q6H 12/23/21 Aspirin [Aspirin EC] 1 tab PO DAILY 12/23/21 Azelastine HCl 1 spray IN BID PRN 12/23/21 Budesonide/Formoterol Fumarate [Symbicort 160-4.5 Mcg Inhaler] 2 puff IN BID 12/23/21 Clopidogrel Bisulfate [Plavix*] 1 tab PO DAILY 12/23/21 Duloxetine [Cymbalta *] 3 cap PO BEDTIME 12/23/21 Ergocalciferol (Vitamin D2) [Vitamin D2] 1 cap PO EVERY 7TH DAY 12/23/21 Furosemide 1 tab PO SEECOM 12/23/21 Gabapentin 1 cap PO BEDTIME 12/23/21 Guaifenesin/Dextromethorphan [Coricidin Hbp Chest Pop-Cough] 1 cap PO Q4H 12/23/21 Hydromorphone [Dilaudid*] 1 tab PO Q6H 12/23/21 Insulin Degludec [Tresiba Flextouch U-200] 20 units SQ DAILY 12/23/21 Insulin Regular, Human [Novolin R] 8 units SQ BIDAC 12/23/21 Lactulose [Kristalose] 1 packet PO TID 12/23/21 Magnesium Oxide 1 tab PO DAILY 12/23/21 Montelukast [Singulair*] 1 tab PO DAILY 12/23/21 Vit B Comp C/Folic Acid/Vit D3 [Dialyvite 800 Plus D Wafer] 1 tab PO DAILY 12/23/21 buPROPion HCl [Wellbutrin Sr] 1 tab PO BID 12/23/21 Amitriptyline HCl 1 tab PO BEDTIME 12/24/21 Cholecalciferol (Vitamin D3) [Vitamin D 5,000 IU Cap*] 1 cap PO DAILY 12/24/21 Docusate [Colace Cap*] 1 cap PO DAILY 12/24/21 Fludrocortisone Acetate 1 tab PO DAILY 12/24/21 Heparin Sodium,Porcine [Heparin Sodium] 1 syr SQ Q12H 12/24/21 Midodrine HCl 2 tab PO BID 12/24/21 Nebivolol HCl [Bystolic] 1 tab PO DAILY 12/24/21 Pantoprazole Sodium 1 tab PO DAILY 12/24/21 Tamsulosin HCl 1 tab PO BEDTIME 12/24/21 calcitrioL [Rocaltrol] 2 cap PO DAILY 12/24/21 - Past Medical/Surgical History Diabetic: Yes -: Asbestosis -: Diabetes mellitus type 2, insulin dependent -: GERD -: Restless leg syndrome -: Chronic pain neck, arms, shoulder, back -: HTN -: Neuropathy -: ESRD on HD followed by Dr. Pereira -: Hyperlipidemia -: Former tobacco use -: Back sx x2 -: Cholecystectomy -: Hernia repair -: Heart catheterization, stent placement Psychosocial/ Personal History: Patient is - Family History Mother Medical History: Heart disease, Diabetes Father Medical History: Other (see notes) Notes: alziehmers - Social History Alcohol use: No CD- Drugs: No Caffeine use: No Review of Systems 10-point ROS is otherwise unremarkable General: Weakness Respiratory: Shortness of Breath Physical Examination Temp Pulse Resp BP Pulse Ox 98.6 F 105 H 12 126/53 L 100 12/25/21 08:00 12/25/21 08:00 12/25/21 08:00 12/25/21 08:00 12/25/21 08:00 General: Alert, In no apparent distress, Oriented x3 Respiratory: Clear to auscultation bilaterally, Diminished Cardiovascular: No edema, Normal S1 S2 Gastrointestinal: Normal bowel sounds, Soft and benign Laboratory Data (last 24 hrs) 12/25/21 05:15: Sodium 142, Potassium 4.3, BUN 21 H, Creatinine 5.30 H* D, Glucose 123 H, Magnesium 2.1, Total Bilirubin 0.3, AST 13 L, ALT 14, Alkaline Phosphatase 145 H 12/25/21 05:15: WBC 12.4 H, Hgb 11.5 L, Hct 35.8 L, Plt Count 356 - Problems (1) Shortness of breath Current Visit: Yes Status: Acute Plan: Patient is 66 years of age he was recently in the hospital was transferred to a rehab unit still continues to be very weak complains of dyspnea on mild exertion including turning in the bed chest x-ray shows blunting of the right costophrenic angle patient is on dialysis oxygenation is stable I will order a 2D echo with Doppler room air arterial blood gases signs otherwise stable blood pressure is stable DC midodrine labs reviewed
[2021-12-25] MEDS: FLUDROCORTISONE 0.1 MG TAB PO SCH (13:56)
[2021-12-25] MEDS: CALCITROL 0.25 MCG CAP PO SCH (13:56)
[2021-12-25] MEDS: MULTIVITAMINS,THERAPEUT 1 TAB PO SCH (13:57)
[2021-12-25] MEDS: CLOPIDOGREL 75 MG TABLET PO SCH (13:57)
[2021-12-25] MEDS: VITAMIN D 5,000 UNIT CAP PO SCH (13:57)
[2021-12-25] MEDS: ASPIRIN EC 81 MG TAB PO SCH (13:57)
[2021-12-25] MEDS: COENZYME Q10- 200 MG CAP PO SCH (14:03)
[2021-12-25] MEDS: EPOETIN 4,000 UNIT/ML VIAL SQ SCH (17:00)
[2021-12-25 18:16] LABS: Arterial Blood Carboxyhemoglob 1.1 % (0-1.5); Blood Gas Oxyhemoglobin 93.7 % (94-97)
[2021-12-25] MEDS: AMITRIPTYLINE 25 MG TAB PO SCH (20:51)
[2021-12-25] MEDS: MONTELUKAST 10 MG TAB PO SCH (20:52)
[2021-12-25] MEDS: TAMSULOSIN 0.4 MG SR CAP PO SCH (20:52)
--- NOTE | 2021-12-25 20:59 | P.PN ---
Date of Service: 12/25/21 Vital Signs Temp Pulse Resp BP Pulse Ox 97.5 F 104 H 18 126/65 92 12/25/21 20:00 12/25/21 20:00 12/25/21 20:00 12/25/21 20:00 12/25/21 20:00 Medications Albuterol Sulfate (Albuterol 2.5 Mg/3 Ml Neb Jeanne) 2.5 mg NEB [id number] PRN PRN Reason: SHORTNESS OF BREATH Amitriptyline HCl (Amitriptyline 25 Mg Tab) 25 mg PO Q24H [facility] Last Admin: 12/25/21 20:51 Dose: 25 mg Documented by: Arformoterol Tartrate (Arformoterol Tartrate 15 Mcg/2 Ml Vial.Neb) 15 mcg NEB BIDRESP [facility] Last Admin: 12/25/21 12:44 Dose: Not Given Documented by: Aspirin (Aspirin Ec 81 Mg Tab) 81 mg PO DAILY [facility] Last Admin: 12/25/21 13:57 Dose: 81 mg Documented by: Calcitriol (Calcitrol 0.25 Mcg Cap) 0.5 mcg PO DAILY [facility] Last Admin: 12/25/21 13:56 Dose: 0.5 mcg Documented by: Cholecalciferol (Vitamin D 5,000 Unit Cap) 5,000 unit PO DAILY [facility] Last Admin: 12/25/21 13:57 Dose: 5,000 unit Documented by: Clopidogrel Bisulfate (Clopidogrel 75 Mg Tablet) 75 mg PO DAILY [facility] Last Admin: 12/25/21 13:57 Dose: 75 mg Documented by: Coenzyme Q10 (Coenzyme Q10- 200 Mg Cap) 200 mg PO DAILY [facility] Last Admin: 12/25/21 14:03 Dose: 200 mg Documented by: Dextrose (D10w 250 Ml Bag) 125 ml IV PRN PRN; Protocol PRN Reason: PER HYPOGLYCEMIA PROTOCOL Last Admin: 12/24/21 13:06 Dose: 125 ml Documented by: Docusate Sodium (Docusate Na 100 Mg Cap) 100 mg PO BID [facility] Last Admin: 12/25/21 20:51 Dose: Not Given Documented by: Docusate Sodium (Docusate Na 100 Mg Cap) 100 mg PO DAILY [facility] Last Admin: 12/25/21 09:00 Dose: Not Given Documented by: Enteral Nutritional Formula (Nepro Shake 237 Ml Can) 237 ml PO TID [facility] Last Admin: 12/25/21 20:52 Dose: 237 ml Documented by: Epoetin Naseem (Epoetin 4,000 Unit/Ml Vial) 4,000 unit SQ M,W,F [facility] Last Admin: 12/25/21 17:00 Dose: 4,000 unit Documented by: Fludrocortisone Acetate (Fludrocortisone 0.1 Mg Tab) 0.1 mg PO DAILY [facility] Last Admin: 12/25/21 13:56 Dose: 0.1 mg Documented by: Gabapentin (Gabapentin 300 Mg Cap) 300 mg PO TID PRN PRN Reason: Pain scale 2-4 (Mild) Last Admin: 12/25/21 17:42 Dose: 300 mg Documented by: Glucagon (Glucagon 1 Mg/Vial) 1 mg IM 1X PRN; Protocol PRN Reason: HYPOGLYCEMIA Heparin Sodium (Porcine) (Heparin 5000 Unit/Ml 1 Ml Vial) 5,000 unit SQ Q8HR [facility] Last Admin: 12/25/21 17:32 Dose: 5,000 unit Documented by: Heparin Sodium (Porcine) (Heparin 1,000 Unit/Ml Vial) 4,000 unit IV EVERY HD PRN PRN Reason: DIALYSIS Last Admin: 12/25/21 10:16 Dose: 4,000 unit Documented by: Insulin Human Lispro (Insulin Lispro 100 Unit/1 Ml) 8 unit SQ BID [facility] Last Admin: 12/25/21 09:00 Dose: Not Given Documented by: Insulin Human Regular (Insulin -Regular Human 50 Unit/0.5 Ml Ml) 0 unit SQ ACHS [facility]; Protocol Last Admin: 12/25/21 20:52 Dose: Not Given Documented by: Montelukast Sodium (Montelukast 10 Mg Tab) 10 mg PO BEDTIME [facility] Last Admin: 12/25/21 20:52 Dose: 10 mg Documented by: Ondansetron HCl (Ondansetron 4 Mg/2 Ml Vial) 4 mg IV Q6HP PRN PRN Reason: NAUSEA / VOMITING Sodium Chloride (Flush Normal Saline 10 Ml) 10 ml IV BID [facility] Last Admin: 12/25/21 20:52 Dose: 10 ml Documented by: Tamsulosin HCl (Tamsulosin 0.4 Mg Sr Cap) 0.8 mg PO BEDTIME [facility] Last Admin: 12/25/21 20:52 Dose: 0.8 mg Documented by: Vitamin B Complex/Vit C/Folic Acid (Multivitamins,Therapeut 1 Tab) 1 tab PO DAILY [facility] Last Admin: 12/25/21 13:57 Dose: 1 tab Documented by: Lab Results (last 24 hrs) 12/25/21 19:56: POC Glucose 139 H 12/25/21 15:25: POC Glucose 135 H 12/25/21 14:17: pH 7.36, pCO2 45.7 H, pO2 75.1, HCO3 24.9, Base Excess 0.0, Oxyhemoglobin 93.7 L, ABG O2 Sat (Measured) 96.0, ABG Carboxyhemoglobin 1.1, ABG Methemoglobin 1.3, Other Total Hgb 11.7 L, Inspired O2 21.0 12/25/21 12:54: POC Glucose 106 12/25/21 07:31: POC Glucose 105 12/25/21 05:15: Sodium 142, Potassium 4.3, Chloride 109 H, Carbon Dioxide 28, BUN 21 H, Creatinine 5.30 H* D, Estimated GFR 11 L, Glucose 123 H, Calcium 9.6, Magnesium 2.1, Total Bilirubin 0.3, AST 13 L, ALT 14, Alkaline Phosphatase 145 H, Serum Total Protein 7.3, Albumin 2.5 L, Globulin 4.8 H, Albumin/Globulin Ratio 0.5 L 12/25/21 05:15: WBC 12.4 H, RBC 3.63 L, Hgb 11.5 L, Hct 35.8 L, MCV 98.7, MCH 31.8, MCHC 32.2, RDW 14.3, Plt Count 356, MPV 8.2, Neutrophils % 73.3, Lymphocytes % 17.4, Monocytes % 6.7, Eosinophils % 1.5, Basophils % 1.1, Absolute Neutrophils 9.1 H, Absolute Lymphocytes 2.2, Absolute Monocytes 0.8, Absolute Eosinophils 0.2, Absolute Basophils 0.1 Assessment/ Plan: Nephrology Persistent dyspnea Fatigue and weakness No chest pain No acute events overnight Vitals, medications, blood work and imaging reviewed in the chart. General: Oriented x3, Cooperative, No distress HEENT: Atraumatic Neck: Supple Respiratory: Normal resp effort Cardiovascular: Regular rate/rhythm, No Edema Gastrointestinal: Soft and benign, Non-distended Musculoskeletal: No clubbing, No contractures Integumentary: No rashes, No cyanosis Neurological: Normal speech Blood work reviewed in the chart. EXAM DESCRIPTION: RAD - Chest Single View - 12/24/2021 5:41 am CLINICAL HISTORY: f/u b/l opacities COMPARISON: Chest Single View dated 11/18/2021; Chest Single View dated 11/15/2021; Chest Single View dated 08/20/2021; Chest Single View dated 08/20/2021; Chest For Pe Angio dated 11/16/2021 FINDINGS: Lines: None. Lungs: No evidence of edema or pneumonia. Pleural: Pleural effusions, right greater than left which are similar to 11/18/2021. Cardiac: Cardiomegaly. Sternotomy. Bones: No acute fractures. IMPRESSION: Similar small bilateral effusions, right greater the left. This presumably underlying atelectasis. No other acute process identified. Conclusions/Impression: ESRD -HD TIW -Seen and examined on HD Chronic hypotension -Continue Midodrine EDITA -Nocturnal CPAP Diastolic CHF, A/C -Acute HD with UF -Pulmonary to evaluate for persistent dyspnea DM II with CKD & Polyneuropathy -RISS Anemia in CKD -Continue Retacrit CKD MBD -Continue Calcitriol BPH with LUTS -Continue Flomax
[2021-12-25] MEDS: ACETAMINOPHEN 500 MG TAB PO PRN (21:21)
[2021-12-26] MEDS: HEPARIN 5000 UNIT/ML 1 ML VIAL SQ SCH ×3 (00:15→16:52)
--- NOTE | 2021-12-26 06:14 | P.PN ---
Date of Service: 12/26/21 Subjective: no change ROS: 10 point ROS as noted above, otherwise negative Physical exam GEN: Alert, oriented, short of breath at rest HEENT: Normal conjunctiva, sclera anicteric CV: Regular rate and rhythm, trace b/l pedal edema Pulm: Labored respirations on 3 L nasal cannula, diminished at bases bilaterally, tachypneic ABD: Soft, nontender, nondistended Neuro: normal affect, moves all extremities Problem List Acute hypoxemic respiratory failure secondary to pulmonary edema orthostatic hypotension with h/o hypertension ESRD - HD DM2, insulin dependent EDITA on nocturnal BIPAP h/o syncope CAD status post CABG 2019 significant orthostatic hypotension, noted during prior hospitalization as well, but more severe continue fludrocortisone, midodrine - was on these meds at rehab and doing better jasper carbajal abd binder bronchodilators as needed suspect autonomic dysfunction, 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
[2021-12-26] MEDS: INSULIN -REGULAR HUMAN 50 UNIT/0.5 ML ML SQ SCH ×4 (07:30→19:52)
[2021-12-26 07:34] LABS: Hematocrit 36.2 % (39.6-49.0); RBC Red Blood Cell Count 3.69 M/uL (4.33-5.43)
[2021-12-26 07:46] LABS: Potassium 4.5 mmol/L (3.5-5.1)
[2021-12-26] MEDS: ARFORMOTEROL TARTRATE 15 MCG/2 ML VIAL.NEB NEB SCH ×2 (07:53→20:00)
[2021-12-26] MEDS: INSULIN LISPRO 100 UNIT/1 ML SQ SCH ×2 (09:00→19:53)
[2021-12-26] MEDS: DOCUSATE NA 100 MG CAP PO SCH ×3 (09:00→19:49)
[2021-12-26] MEDS: ASPIRIN EC 81 MG TAB PO SCH (09:16)
[2021-12-26] MEDS: VITAMIN D 5,000 UNIT CAP PO SCH (09:18)
[2021-12-26] MEDS: MULTIVITAMINS,THERAPEUT 1 TAB PO SCH (09:18)
[2021-12-26] MEDS: FLUDROCORTISONE 0.1 MG TAB PO SCH (09:18)
[2021-12-26] MEDS: CLOPIDOGREL 75 MG TABLET PO SCH (09:18)
[2021-12-26] MEDS: NEPRO SHAKE 237 ML CAN PO SCH ×3 (09:22→20:08)
[2021-12-26] MEDS: CALCITROL 0.25 MCG CAP PO SCH (09:33)
--- NOTE | 2021-12-26 10:21 | P.PN ---
Date of Service: 12/26/21 Vital Signs Temp Pulse Resp BP Pulse Ox 97.0 F 102 H 16 123/61 99 12/26/21 08:00 12/26/21 08:00 12/26/21 08:00 12/26/21 08:00 12/26/21 08:00 Medications Acetaminophen (Acetaminophen 500 Mg Tab) 500 mg PO Q6H PRN PRN Reason: Pain scale 2-4 (Mild) Last Admin: 12/25/21 21:21 Dose: 500 mg Documented by: Albuterol Sulfate (Albuterol 2.5 Mg/3 Ml Neb Jeanne) 2.5 mg NEB [id number] PRN PRN Reason: SHORTNESS OF BREATH Amitriptyline HCl (Amitriptyline 25 Mg Tab) 25 mg PO Q24H [facility] Last Admin: 12/25/21 20:51 Dose: 25 mg Documented by: Arformoterol Tartrate (Arformoterol Tartrate 15 Mcg/2 Ml Vial.Neb) 15 mcg NEB BIDRESP [facility] Last Admin: 12/26/21 07:53 Dose: 15 mcg Documented by: Aspirin (Aspirin Ec 81 Mg Tab) 81 mg PO DAILY [facility] Last Admin: 12/26/21 09:16 Dose: 81 mg Documented by: Calcitriol (Calcitrol 0.25 Mcg Cap) 0.5 mcg PO DAILY [facility] Last Admin: 12/26/21 09:33 Dose: 0.5 mcg Documented by: Cholecalciferol (Vitamin D 5,000 Unit Cap) 5,000 unit PO DAILY [facility] Last Admin: 12/26/21 09:18 Dose: 5,000 unit Documented by: Clopidogrel Bisulfate (Clopidogrel 75 Mg Tablet) 75 mg PO DAILY [facility] Last Admin: 12/26/21 09:18 Dose: 75 mg Documented by: Coenzyme Q10 (Coenzyme Q10- 200 Mg Cap) 200 mg PO DAILY [facility] Last Admin: 12/25/21 14:03 Dose: 200 mg Documented by: Dextrose (D10w 250 Ml Bag) 125 ml IV PRN PRN; Protocol PRN Reason: PER HYPOGLYCEMIA PROTOCOL Last Admin: 12/24/21 13:06 Dose: 125 ml Documented by: Docusate Sodium (Docusate Na 100 Mg Cap) 100 mg PO BID [facility] Last Admin: 12/26/21 09:00 Dose: Not Given Documented by: Enteral Nutritional Formula (Nepro Shake 237 Ml Can) 237 ml PO TID [facility] Last Admin: 12/26/21 09:22 Dose: 237 ml Documented by: Epoetin Naseem (Epoetin 4,000 Unit/Ml Vial) 4,000 unit SQ M,W,F [facility] Last Admin: 12/25/21 17:00 Dose: 4,000 unit Documented by: Fludrocortisone Acetate (Fludrocortisone 0.1 Mg Tab) 0.1 mg PO DAILY [facility] Last Admin: 12/26/21 09:18 Dose: 0.1 mg Documented by: Gabapentin (Gabapentin 300 Mg Cap) 300 mg PO TID PRN PRN Reason: Pain scale 2-4 (Mild) Last Admin: 12/25/21 17:42 Dose: 300 mg Documented by: Glucagon (Glucagon 1 Mg/Vial) 1 mg IM 1X PRN; Protocol PRN Reason: HYPOGLYCEMIA Heparin Sodium (Porcine) (Heparin 5000 Unit/Ml 1 Ml Vial) 5,000 unit SQ Q8HR [facility] Last Admin: 12/26/21 09:00 Dose: 5,000 unit Documented by: Heparin Sodium (Porcine) (Heparin 1,000 Unit/Ml Vial) 4,000 unit IV EVERY HD PRN PRN Reason: DIALYSIS Last Admin: 12/25/21 10:16 Dose: 4,000 unit Documented by: Insulin Human Lispro (Insulin Lispro 100 Unit/1 Ml) 8 unit SQ BID [facility] Last Admin: 12/26/21 09:00 Dose: Not Given Documented by: Insulin Human Regular (Insulin -Regular Human 50 Unit/0.5 Ml Ml) 0 unit SQ ACHS [facility]; Protocol Last Admin: 12/26/21 07:30 Dose: Not Given Documented by: Montelukast Sodium (Montelukast 10 Mg Tab) 10 mg PO BEDTIME [facility] Last Admin: 12/25/21 20:52 Dose: 10 mg Documented by: Ondansetron HCl (Ondansetron 4 Mg/2 Ml Vial) 4 mg IV Q6HP PRN PRN Reason: NAUSEA / VOMITING Sodium Chloride (Flush Normal Saline 10 Ml) 10 ml IV BID [facility] Last Admin: 12/26/21 09:00 Dose: 10 ml Documented by: Vitamin B Complex/Vit C/Folic Acid (Multivitamins,Therapeut 1 Tab) 1 tab PO DAILY [facility] Last Admin: 12/26/21 09:18 Dose: 1 tab Documented by: Lab Results (last 24 hrs) 12/26/21 07:26: POC Glucose 117 12/26/21 07:10: Sodium 139, Potassium 4.5, Chloride 102, Carbon Dioxide 28, BUN 21 H, Creatinine 4.67 H, Estimated GFR 13 L, Glucose 139 H, Calcium 9.9, Magnesium 2.0 12/26/21 07:10: WBC 11.5 H, RBC 3.69 L, Hgb 11.8 L, Hct 36.2 L, MCV 98.3, MCH 32.1, MCHC 32.6, RDW 14.0, Plt Count 338, MPV 8.0 12/25/21 19:56: POC Glucose 139 H 12/25/21 15:25: POC Glucose 135 H 12/25/21 14:17: pH 7.36, pCO2 45.7 H, pO2 75.1, HCO3 24.9, Base Excess 0.0, Oxyhemoglobin 93.7 L, ABG O2 Sat (Measured) 96.0, ABG Carboxyhemoglobin 1.1, ABG Methemoglobin 1.3, Other Total Hgb 11.7 L, Inspired O2 21.0 12/25/21 12:54: POC Glucose 106 Assessment/ Plan: Nephrology Persistent dyspnea on exertion, fatigue and weakness. Reports no energy No chest pain No acute events overnight Vitals, medications, blood work and imaging reviewed in the chart. General: Oriented x3, Cooperative, No distress HEENT: Atraumatic Neck: Supple Respiratory: Normal resp effort Cardiovascular: Regular rate/rhythm, No Edema Gastrointestinal: Soft and benign, Non-distended Musculoskeletal: No clubbing, No contractures Integumentary: No rashes, No cyanosis Neurological: Normal speech Blood work reviewed in the chart. EXAM DESCRIPTION: RAD - Chest Single View - 12/24/2021 5:41 am CLINICAL HISTORY: f/u b/l opacities COMPARISON: Chest Single View dated 11/18/2021; Chest Single View dated 11/15/2021; Chest Single View dated 08/20/2021; Chest Single View dated 08/20/2021; Chest For Pe Angio dated 11/16/2021 FINDINGS: Lines: None. Lungs: No evidence of edema or pneumonia. Pleural: Pleural effusions, right greater than left which are similar to 11/18/2021. Cardiac: Cardiomegaly. Sternotomy. Bones: No acute fractures. IMPRESSION: Similar small bilateral effusions, right greater the left. This presumably underlying atelectasis. No other acute process identified. Conclusions/Impression: ESRD -HD TIW Chronic hypotension concerning autonomic dysfunction and/or adrenal insufficiency -Continue Midodrine for orthostatic hypotension -Continue Fludrocortisone EDITA -Nocturnal CPAP Diastolic CHF, A/C -Acute HD with UF -Pulmonary following persistent dyspnea DM II with CKD & Polyneuropathy -RISS Anemia in CKD -Continue Retacrit CKD MBD -Continue Calcitriol BPH with LUTS -Continue Flomax
[2021-12-26] MEDS: GABAPENTIN 300 MG CAP PO PRN (10:34)
[2021-12-26] MEDS: ONDANSETRON 4 MG/2 ML VIAL IV PRN (10:34)
[2021-12-26] MEDS: COENZYME Q10- 200 MG CAP PO SCH (11:42)
[2021-12-26] MEDS: ACETAMINOPHEN 500 MG TAB PO PRN (11:46)
--- NOTE | 2021-12-26 13:10 | P.PN ---
Subjective Date of Service: 12/26/21 Chief Complaint: Shortness of breath No change still complains of dyspnea apparently he is very orthostatic Review of Systems General: Weakness Respiratory: Shortness of Breath Physical Examination - Vital Signs Temperature: 97.3 F Blood Pressure: 117/68 Pulse: 106 Respirations: 16 Pulse Ox (%): 98 - Physical Exam General: Alert, Oriented x3, Mild distress Respiratory: Clear to auscultation bilaterally Cardiovascular: No edema, Regular rate/rhythm - Studies Laboratory Data (last 24 hrs) 12/26/21 07:10: Sodium 139, Potassium 4.5, BUN 21 H, Creatinine 4.67 H, Glucose 139 H, Magnesium 2.0 12/26/21 07:10: WBC 11.5 H, Hgb 11.8 L, Hct 36.2 L, Plt Count 338 Assessment And Plan - Current Problems (Diagnosis) (1) Shortness of breath Current Visit: Yes Status: Acute Plan: d (2) Orthostatic hypotension Current Visit: Yes Status: Acute - Plan Patient continues to complain of shortness of breath although this seem to be no objective findings to account for his shortness of breath He does have severe orthostatic hypotension agree with resumption of midodrine and fludrocortisone resolved level is low at 13 will start him on Decadron ACTH stimulation test patient has chronic renal failure prognosis poor dates back his problems after his bypass operation
[2021-12-26] MEDS: MIDODRINE HCL 5 MG TABLET PO SCH ×2 (14:04→21:00)
[2021-12-26] MEDS: dexAMETHasone 4 MG TAB PO SCH ×2 (14:04→19:51)
[2021-12-26 14:37] VITALS: BMI 29.5
--- NOTE | 2021-12-26 16:43 | RAD REPORT ---
EXAM DESCRIPTION: MRI - Brain Wo Cont - 12/26/2021 4:11 pm CLINICAL HISTORY: confusion, dementia, orthostatic COMPARISON: Brain Wo Cont dated 09/01/2016 TECHNIQUE: Sagittal T1-weighted images were obtained along with axial PD, heavily T2-weighted and T2 -FLAIR images. Axial DWI and ADC mapping sequences were also obtained along with coronal heavily T2-w eighted images. FINDINGS: No intracranial hemorrhage, mass or acute infarction. There is no edema or shift of midlin e structures. No extra-axial fluid collections. Smith-matter/white matter junction is preserved. Signa l voids are seen as a normal finding in the major intracranial vessels. Patient has minimal atrophy changes involving the bilateral frontal lobes and anterior temporal lobes . Frontal horn of each lateral ventricle is larger than the trigone and occipital horns of the latera l ventricles. Frontal horn enlargement is in proportion to volume loss. This frontal lobe volume loss pattern is similar to 2016. No measurable chronic ischemic change in the cerebral white matter. Basa l ganglia and thalamus tissues are spared. Mastoid air cells and paranasal sinuses are clear. No globe or orbital content acute finding. Patient has a large draining vein along the right-side of the midbrain coursing towards the vein of Serafin and straight sinus. Normal signal void is seen. This is believed to be a normal variant dominant draining vein rather than the venous malformation. No steph nges have occurred since 2016. IMPRESSION: No acute or subacute infarction changes are present. No mass, edema or acute intracrania l finding. The patient has mild bifrontal lobe atrophy pattern matches the 2016 study. No measurable chronic isc hemic change.
[2021-12-26] MEDS: MONTELUKAST 10 MG TAB PO SCH (19:50)
[2021-12-26] MEDS: AMITRIPTYLINE 25 MG TAB PO SCH (19:51)
[2021-12-26] MEDS: CARBIDOPA/LEVODOPA 25/100 TAB PO SCH (19:51)
[2021-12-27] MEDS: HEPARIN 5000 UNIT/ML 1 ML VIAL SQ SCH ×3 (00:21→16:25)
--- NOTE | 2021-12-27 03:15 | P.PN ---
Date of Service: 12/27/21 I was called by nursing staff as patient was calling out to staff lying on the floor. Patient had unwitnessed fall was lying on his left side by the door. We went to examine patient he was unable to tell me how he ended up on the floor although he is oriented x3. He reports the first and here members was waking up on the floor confused by how he got there. Patient was brought back to bed a bed check was added. Patient reports multiple similar falls over the course last few months. He does have orthostatic hypotension. On exam patient moving all extremities without pain abdomen is soft and nontender respirations even unlabored breath sounds CTA bilaterally. Patient with no midline C-spine tenderness although he is complaining of "a crick in his neck" left lateral neck area. LOC is unknown also unknown if there is any trauma to the head although he is not complaining of any pain to the head nor of any hematomas or l acerations or other signs of trauma. Given his questionable loss of consciousness and unwitnessed fall will obtain CT head C-spine stat. Otherwise patient vital signs are stable at this time normotensive. Bed check was added patient was counseled on need for strict fall precautions and assistance at all times when attempting to ambulate.
--- NOTE | 2021-12-27 06:37 | P.PN ---
Date of Service: 12/27/21 Subjective: fall overnight. patient got up from bed and found on floor a few feet away patient thinks he was dreaming. more confused today CT head negative. +orthostatic otherwise symptoms unchanged. remains short of breath, unable to stand due to lightheadedness ROS: 10 point ROS as noted above, otherwise negative Physical exam GEN: Alert, orientedx2, short of breath at rest, confused HEENT: Normal conjunctiva, sclera anicteric CV: Regular rate and rhythm, trace b/l pedal edema Pulm: Labored respirations on 3 L nasal cannula, diminished at bases bilaterally, shallow respirations ABD: Soft, nontender, nondistended Neuro: confused, follows commands, moves all extremities Problem List Acute hypoxemic respiratory failure secondary to pulmonary edema orthostatic hypotension with h/o hypertension ESRD - HD DM2, insulin dependent EDITA on nocturnal BIPAP h/o syncope CAD status post CABG 2019 significant orthostatic hypotension, noted during prior hospitalization as well, but more severe now continue fludrocortisone, midodrine - was on these meds at rehab and doing better david garcia pulm added more steroids on 12/26 ACT stim test this morning bronchodilators as needed suspect autonomic dysfunction, 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
[2021-12-27 06:40] LABS: Hematocrit 35.4 % (39.6-49.0); MPV 8.4 fL (7.6-11.3); RBC Red Blood Cell Count 3.63 M/uL (4.33-5.43)
--- NOTE | 2021-12-27 07:15 | ECHO ---
HEIGHT: 6 ft 2 in WEIGHT: 230 lb 0 oz DATE OF STUDY: 12/26/[address]: William Wright MD 2-DIMENSIONAL: YES M.MODE: YES DOPPLER: YES COLOR FLOW: YES TDS: NO PORTABLE: NO DEFINITY: NO BUBBLE STUDY: NO DIAGNOSIS: SEVERE DYSPNEA CARDIAC HISTORY: CATHERIZATION:YES SURGERY: YES PROSTHETIC VALVE: NO PACEMAKER: NO MEASUREMENTS (cm) DIASTOLIC (NORMALS) SYSTOLIC (NORMALS) IVSd 1.4 (0.6-1.2) LA Diam 5.3 (1.9-4.0) LVEF 54% LVIDd 4.6 (3.5-5.7) LVIDs 3.3 (2.0-3.5) %FS 28% LVPWd 1.4 (0.6-1.2) Ao Diam 3.4 (2.0-3.7) 2 DIMENSIONAL ASSESSMENT: RIGHT ATRIUM: NORMAL LEFT ATRIUM: ENLARGED RIGHT VENTRICLE: NORMAL LEFT VENTRICLE: MODERATE LEFT VENTRICULAR HYPERTROPHY TRICUSPID VALVE: MITRAL VALVE: NORMAL PULMONIC VALVE: NORMAL AORTIC VALVE: NORMAL PERICARDIAL EFFUSION: NONE AORTIC ROOT: NORMAL LEFT VENTRICULAR WALL MOTION: NORMAL DOPPLER/COLOR FLOW: MILD TRICUSPID REGURGITATION. COMMENTS: NORMAL LEFT VENTRICULAR EJECTION FRACTION 55-60%. NORMAL WALL MOTION. MODERATE LEFT VENTRICULAR HYPERTROPHY. MILD TRICUSPID REGURGITATION. LEFT ATRIAL ENLARGEMENT. TECHNOLOGIST: Jame HEDRICK
[2021-12-27] MEDS: INSULIN -REGULAR HUMAN 50 UNIT/0.5 ML ML SQ SCH ×4 (07:30→21:44)
[2021-12-27 07:33] LABS: ALT/SGPT < 10 U/L (12-78); AST/SGOT 6 U/L (15-37); Albumin 2.7 g/dL (3.4-5.0); Alkaline Phosphatase 145 U/L (45-117); BUN Blood Urea Nitrogen 38 mg/dL (7-18); Bicarbonate 26 mmol/L (21-32); Bilirubin Total 0.4 mg/dL (0.2-1.0); Folic Acid, (Folate) > 20.0 ng/mL (3.1-17.5); Glucose Level 209 mg/dL (74-106); Sodium Level 135 mmol/L (136-145)
[2021-12-27] MEDS: NEPRO SHAKE 237 ML CAN PO SCH ×3 (09:00→21:53)
[2021-12-27] MEDS: ARFORMOTEROL TARTRATE 15 MCG/2 ML VIAL.NEB NEB SCH ×2 (10:01→20:20)
[2021-12-27] MEDS: DOCUSATE NA 100 MG CAP PO SCH ×2 (10:21→21:41)
[2021-12-27] MEDS: COENZYME Q10- 200 MG CAP PO SCH (10:22)
[2021-12-27] MEDS: CALCITROL 0.25 MCG CAP PO SCH (10:22)
[2021-12-27] MEDS: MULTIVITAMINS,THERAPEUT 1 TAB PO SCH (10:22)
[2021-12-27] MEDS: MIDODRINE HCL 5 MG TABLET PO SCH ×2 (10:22→21:00)
[2021-12-27] MEDS: GABAPENTIN 300 MG CAP PO PRN (10:23)
[2021-12-27] MEDS: ASPIRIN EC 81 MG TAB PO SCH (10:23)
[2021-12-27] MEDS: VITAMIN D 5,000 UNIT CAP PO SCH (10:24)
[2021-12-27] MEDS: CARBIDOPA/LEVODOPA 25/100 TAB PO SCH ×3 (10:24→21:42)
[2021-12-27] MEDS: CLOPIDOGREL 75 MG TABLET PO SCH (10:24)
[2021-12-27] MEDS: INSULIN LISPRO 100 UNIT/1 ML SQ SCH ×2 (10:25→21:00)
[2021-12-27] MEDS: dexAMETHasone 4 MG TAB PO SCH ×2 (10:26→21:42)
--- NOTE | 2021-12-27 13:14 | RAD REPORT ---
EXAM DESCRIPTION: CT - Head C Spine Mpr Wo Con - 12/27/2021 7:00 am CLINICAL HISTORY: 66 years Male Fall ?LOC TECHNIQUE: Multiple axial CT images of the brain and cervical spine were performed followed by sagit von and coronal reconstructed images. The CT study is performed according to ALARA (as low as reasona ceci achievable) or ALARA/IMAGE GENTLY, with automatic adjustment of mA and/or kV according to patient size. Performed on: 12/27/2021 at 3:55 AM COMPARISON: Head CT performed on 08/31/2016 and brain MRI performed on 12/26/2021. FINDINGS: CT HEAD: There is no evidence of mass, acute mass effect or midline shift. There are no acute extra-axial flui d collections. There is no evidence of acute intracranial hemorrhage. The cerebral sulci and ventricles are prominent consistent with mild cerebral volume loss. There are no focal abnormal areas of increased or decreased attenuation. There is no significant mucosal thickening of the paranasal sinuses. There are trace effusions within the posterior right mastoid air cells. The left mastoid air cells ar e grossly clear.. The orbital contents are grossly unremarkable. No acute osseous abnormalities are identified. No focal soft tissue abnormalities are identified. CT CERVICAL SPINE: The cervical vertebrae are normal in height. There is normal alignment of the vertebrae. There is mil d disc space narrowing at level. There are thick, flowing anterior bridging osteophytes at multiple l evels along the cervical spine suggesting underlying diffuse idiopathic skeletal hyperostosis. There is also ossification of the posterior longitudinal ligament. Bone mineralization is normal. The at lanto-axial articulation is preserved and the odontoid process is intact. There is ossification of th e ligamentum nuchae at the C4-C5 level. There is normal alignment of the facet joints on the parasagittal images. There is no significant a nkylosis of the facet joints. There is no evidence of acute fracture or subluxation. There is multilevel canal stenosis most pronou nced from C2-C3 through C4-C5 secondary to ossification of the posterior longitudinal ligament. The re is left C3-C4 and right C6-C7 neural foraminal stenosis secondary to uncovertebral joint hypertrop hy. The prevertebral and paraspinal soft tissues are unremarkable. The lung apices are clear. The thyroid gland is grossly within normal limits. IMPRESSION: CT HEAD: 1. No evidence of acute intracranial pathology. 2. Trace effusions within the posterior left mastoid air cells. CT CERVICAL SPINE: 1. No evidence of acute osseous injury involving the cervical spine. 2. Findings suggesting underlying diffuse idiopathic skeletal hyperostosis. 3. Multilevel canal stenosis most pronounced from C2-C3 through C4-C5 secondary to ossification of the posterior longitudinal ligament. There is left C3-C4 and right C6-C7 neural foraminal stenosis se condary to uncovertebral joint hypertrophy. Electronically signed by: Tarah Matthew DO 12/27/2021 5:39 AM CDT Due to temporary technical issues with the PACS/Fluency reporting system, reports are being signed by the in house radiologist without review as a courtesy to ensure prompt reporting. The interpreting r adiologist is fully responsible for the content of the report.
[2021-12-27] MEDS: EPOETIN 4,000 UNIT/ML VIAL SQ SCH (16:25)
[2021-12-27] MEDS: FLUDROCORTISONE 0.1 MG TAB PO SCH (16:26)
--- NOTE | 2021-12-27 20:30 | P.PN ---
Date of Service: 12/27/21 Vital Signs Temp Pulse Resp BP Pulse Ox 97.0 F 101 H 16 137/70 100 12/27/21 16:00 12/27/21 16:00 12/27/21 16:00 12/27/21 16:00 12/27/21 16:00 Medications Acetaminophen (Acetaminophen 500 Mg Tab) 500 mg PO Q6H PRN PRN Reason: Pain scale 2-4 (Mild) Last Admin: 12/26/21 11:46 Dose: 500 mg Documented by: Albuterol Sulfate (Albuterol 2.5 Mg/3 Ml Neb Jeanne) 2.5 mg NEB [id number] PRN PRN Reason: SHORTNESS OF BREATH Amitriptyline HCl (Amitriptyline 25 Mg Tab) 25 mg PO Q24H [facility] Last Admin: 12/26/21 19:51 Dose: 25 mg Documented by: Arformoterol Tartrate (Arformoterol Tartrate 15 Mcg/2 Ml Vial.Neb) 15 mcg NEB BIDRESP [facility] Last Admin: 12/27/21 10:01 Dose: 15 mcg Documented by: Aspirin (Aspirin Ec 81 Mg Tab) 81 mg PO DAILY [facility] Last Admin: 12/27/21 10:23 Dose: 81 mg Documented by: Calcitriol (Calcitrol 0.25 Mcg Cap) 0.5 mcg PO DAILY [facility] Last Admin: 12/27/21 10:22 Dose: 0.5 mcg Documented by: Carbidopa/Levodopa (Carbidopa/Levodopa 25/100 Tab) 1 tab PO TID [facility] Last Admin: 12/27/21 14:24 Dose: 1 tab Documented by: Cholecalciferol (Vitamin D 5,000 Unit Cap) 5,000 unit PO DAILY [facility] Last Admin: 12/27/21 10:24 Dose: 5,000 unit Documented by: Clopidogrel Bisulfate (Clopidogrel 75 Mg Tablet) 75 mg PO DAILY [facility] Last Admin: 12/27/21 10:24 Dose: 75 mg Documented by: Coenzyme Q10 (Coenzyme Q10- 200 Mg Cap) 200 mg PO DAILY [facility] Last Admin: 12/27/21 10:22 Dose: 200 mg Documented by: Dexamethasone (Dexamethasone 4 Mg Tab) 4 mg PO BID [facility] Last Admin: 12/27/21 10:26 Dose: 4 mg Documented by: Dextrose (D10w 250 Ml Bag) 125 ml IV PRN PRN; Protocol PRN Reason: PER HYPOGLYCEMIA PROTOCOL Last Admin: 12/24/21 13:06 Dose: 125 ml Documented by: Docusate Sodium (Docusate Na 100 Mg Cap) 100 mg PO BID [facility] Last Admin: 12/27/21 10:21 Dose: 100 mg Documented by: Enteral Nutritional Formula (Nepro Shake 237 Ml Can) 237 ml PO TID [facility] Last Admin: 12/27/21 14:00 Dose: 237 ml Documented by: Epoetin Naseem (Epoetin 4,000 Unit/Ml Vial) 4,000 unit SQ M,W,F [facility] Last Admin: 12/27/21 16:25 Dose: 4,000 unit Documented by: Fludrocortisone Acetate (Fludrocortisone 0.1 Mg Tab) 0.1 mg PO DAILY [facility] Last Admin: 12/27/21 16:26 Dose: 0.1 mg Documented by: Gabapentin (Gabapentin 300 Mg Cap) 300 mg PO TID PRN PRN Reason: Pain scale 2-4 (Mild) Last Admin: 12/27/21 10:23 Dose: 300 mg Documented by: Glucagon (Glucagon 1 Mg/Vial) 1 mg IM 1X PRN; Protocol PRN Reason: HYPOGLYCEMIA Heparin Sodium (Porcine) (Heparin 5000 Unit/Ml 1 Ml Vial) 5,000 unit SQ Q8HR [facility] Last Admin: 12/27/21 16:25 Dose: 5,000 unit Documented by: Heparin Sodium (Porcine) (Heparin 1,000 Unit/Ml Vial) 4,000 unit IV EVERY HD PRN PRN Reason: DIALYSIS Last Admin: 12/25/21 10:16 Dose: 4,000 unit Documented by: Insulin Human Lispro (Insulin Lispro 100 Unit/1 Ml) 8 unit SQ BID [facility] Last Admin: 12/27/21 10:25 Dose: 8 unit Documented by: Insulin Human Regular (Insulin -Regular Human 50 Unit/0.5 Ml Ml) 0 unit SQ ACHS [facility]; Protocol Last Admin: 12/27/21 16:30 Dose: Not Given Documented by: Midodrine (Midodrine Hcl 5 Mg Tablet) 10 mg PO BID [facility] Last Admin: 12/27/21 10:22 Dose: 10 mg Documented by: Montelukast Sodium (Montelukast 10 Mg Tab) 10 mg PO BEDTIME [facility] Last Admin: 12/26/21 19:50 Dose: 10 mg Documented by: Ondansetron HCl (Ondansetron 4 Mg/2 Ml Vial) 4 mg IV Q6HP PRN PRN Reason: NAUSEA / VOMITING Last Admin: 12/26/21 10:34 Dose: 4 mg Documented by: Sodium Chloride (Flush Normal Saline 10 Ml) 10 ml IV BID [facility] Last Admin: 12/27/21 09:00 Dose: 10 ml Documented by: Vitamin B Complex/Vit C/Folic Acid (Multivitamins,Therapeut 1 Tab) 1 tab PO DAILY [facility] Last Admin: 12/27/21 10:22 Dose: 1 tab Documented by: Lab Results (last 24 hrs) 12/27/21 15:40: POC Glucose 142 H 12/27/21 11:42: POC Glucose 173 H 12/27/21 07:36: POC Glucose 201 H 12/27/21 06:53: POC Glucose 194 H 12/27/21 06:10: WBC 12.2 H, RBC 3.63 L, Hgb 11.6 L, Hct 35.4 L, MCV 97.5, MCH 31.9, MCHC 32.8, RDW 13.7, Plt Count 358, MPV 8.4 12/27/21 06:10: Sodium 135 L, Potassium 5.0, Chloride 101, Carbon Dioxide 26, BUN 38 H, Creatinine 6.16 H* D, Estimated GFR 9 L, Glucose 209 H, Calcium 10.2 H, Phosphorus 5.0 H, Total Bilirubin 0.4, AST 6 L, ALT < 10 L, Alkaline Phosphatase 145 H, Serum Total Protein 8.0, Albumin 2.7 L, Globulin 5.3 H, Albumin/Globulin Ratio 0.5 L, Vitamin B12 967, Serum Folate > 20.0 H 12/24/21 03:43: C-React Prot High Sens >10.0 H Assessment/ Plan: Nephrology He fell overnight Worsening mental status this morning No chest pain No acute events overnight Vitals, medications, blood work and imaging reviewed in the chart. General: Cooperative, No distress HEENT: Atraumatic Neck: Supple Respiratory: Normal resp effort Cardiovascular: Regular rate/rhythm, No Edema Gastrointestinal: Soft and benign, Non-distended Musculoskeletal: No clubbing, No contractures Integumentary: No rashes, No cyanosis Neurological: Normal speech Blood work reviewed in the chart. EXAM DESCRIPTION: RAD - Chest Single View - 12/24/2021 5:41 am CLINICAL HISTORY: f/u b/l opacities COMPARISON: Chest Single View dated 11/18/2021; Chest Single View dated 11/15/2021; Chest Single View dated 08/20/2021; Chest Single View dated 08/20/2021; Chest For Pe Angio dated 11/16/2021 FINDINGS: Lines: None. Lungs: No evidence of edema or pneumonia. Pleural: Pleural effusions, right greater than left which are similar to 11/18/2021. Cardiac: Cardiomegaly. Sternotomy. Bones: No acute fractures. IMPRESSION: Similar small bilateral effusions, right greater the left. This presumably underlying atelectasis. No other acute process identified. Conclusions/Impression: ESRD -HD TIW Chronic hypotension concerning autonomic dysfunction and/or adrenal insufficiency -Continue Midodrine for orthostatic hypotension -Continue Fludrocortisone EDITA -Nocturnal CPAP Diastolic CHF, A/C -Acute HD with UF -Pulmonary following persistent dyspnea DM II with CKD & Polyneuropathy -RISS Anemia in CKD -Continue Retacrit CKD MBD -Continue Calcitriol BPH with LUTS -Continue Flomax Toxic metabolic encephalopathy of unclear etiology -Neurology evaluating the patient
[2021-12-27] MEDS: MONTELUKAST 10 MG TAB PO SCH (21:41)
[2021-12-27] MEDS: AMITRIPTYLINE 25 MG TAB PO SCH (21:43)
[2021-12-28] MEDS: HEPARIN 5000 UNIT/ML 1 ML VIAL SQ SCH ×3 (01:10→16:49)
--- NOTE | 2021-12-28 06:04 | P.PN ---
Date of Service: 12/28/21 Subjective: reports visual hallucinations and didn't sleep last night sinemet held otherwise feels about the same, breathing at rest slightly improved ROS: 10 point ROS as noted above, otherwise negative Physical exam GEN: Alert, orientedx2, confused HEENT: Normal conjunctiva, sclera anicteric, PERRL CV: Regular rate and rhythm, trace b/l pedal edema Pulm: mildly labored respirations on room air at rest ABD: Soft, nontender, nondistended Neuro: confused, visual hallucinations, follows commands, moves all extremities Problem List Acute hypoxemic respiratory failure secondary to pulmonary edema orthostatic hypotension with h/o hypertension Visual hallucinations ESRD - HD DM2, insulin dependent EDITA on nocturnal BIPAP h/o syncope CAD status post CABG 2020 significant orthostatic hypotension, noted during prior hospitalization as well, but more severe now continue fludrocortisone, midodrine - was on these meds at rehab and was doing better jasper carbajal, david binder pulm added decadron on 12/26; possibly contributing hallucinations - possibly steroid induced vs sinemet side effect. 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
[2021-12-28 06:10] LABS: Absolute Lymphocytes (CBC) 0.8 K/uL (0.7-4.9); Hematocrit 35.4 % (39.6-49.0); Lymphocytes % 5.3 % (15.3-44.8); MPV 8.4 fL (7.6-11.3); RBC Red Blood Cell Count 3.67 M/uL (4.33-5.43)
[2021-12-28 06:18] LABS: AST/SGOT 8 U/L (15-37); Albumin 2.9 g/dL (3.4-5.0); Alkaline Phosphatase 147 U/L (45-117); BUN Blood Urea Nitrogen 32 mg/dL (7-18); Bicarbonate 26 mmol/L (21-32); Bilirubin Total 0.4 mg/dL (0.2-1.0); Glucose Level 193 mg/dL (74-106); Magnesium 2.1 mg/dL (1.8-2.4); Potassium 4.4 mmol/L (3.5-5.1); Protein, Total 8.2 g/dL (6.4-8.2); Sodium Level 134 mmol/L (136-145)
[2021-12-28 06:23] LABS: ALT/SGPT < 10 U/L (12-78)
[2021-12-28] MEDS: COENZYME Q10- 200 MG CAP PO SCH (08:16)
[2021-12-28] MEDS: VITAMIN D 5,000 UNIT CAP PO SCH (08:16)
[2021-12-28] MEDS: CALCITROL 0.25 MCG CAP PO SCH (08:16)
[2021-12-28] MEDS: MIDODRINE HCL 5 MG TABLET PO SCH ×2 (08:16→21:54)
[2021-12-28] MEDS: dexAMETHasone 4 MG TAB PO SCH (08:16)
[2021-12-28] MEDS: DOCUSATE NA 100 MG CAP PO SCH ×2 (08:16→21:54)
[2021-12-28] MEDS: FLUDROCORTISONE 0.1 MG TAB PO SCH (08:16)
[2021-12-28] MEDS: MULTIVITAMINS,THERAPEUT 1 TAB PO SCH (08:17)
[2021-12-28] MEDS: INSULIN -REGULAR HUMAN 50 UNIT/0.5 ML ML SQ SCH ×4 (08:17→21:53)
[2021-12-28] MEDS: CLOPIDOGREL 75 MG TABLET PO SCH (08:17)
[2021-12-28] MEDS: NEPRO SHAKE 237 ML CAN PO SCH ×3 (08:17→21:56)
[2021-12-28] MEDS: INSULIN LISPRO 100 UNIT/1 ML SQ SCH ×2 (08:17→21:53)
--- NOTE | 2021-12-28 08:38 | RAD REPORT ---
EXAM DESCRIPTION: US - CP - 12/27/2021 10:24 pm CLINICAL HISTORY: dizziness, syncope COMPARISON: Head C Spine Mpr Wo Con dated 12/27/2021 TECHNIQUE: Real-time sonographic evaluation of bilateral carotid and vertebral systems was performed . Smith scale and Doppler interrogation were performed with waveform tracing bilaterally. FINDINGS: Normal high resistance waveforms are noted in both external carotid arteries. The common c arotid arteries and internal carotid arteries show normal low resistance waveforms. Mild plaquing changes are present in the right carotid bulb. Visually there is no significant narrowi ng of the vessel lumen. Calcified plaquing changes are present in the left carotid bulb more prominen t than the right but still not causing significant narrowing of the vessel lumen on visual inspection . Peak systolic and end diastolic velocity values and the ICA/CCA ratios are in the non-hemodynamical ly significant range. Antegrade flow seen in both vertebral arteries. Velocity values and ratios were recorded and are retained in the patient's imaging records. IMPRESSION: Bilateral carotid bulb calcified plaquing changes are present without significant narrow ing of the lumen. No dissection changes. No evidence of a hemodynamically significant stenosis.
[2021-12-28 09:21] LABS: Platelet Estimate ADEQ
[2021-12-28 09:22] LABS: Blood Morphology Comment NOT SEEN (NOT SEEN)
--- NOTE | 2021-12-28 10:00 | RAD REPORT ---
EXAM DESCRIPTION: RAD - Chest Single View - 12/28/2021 8:54 am CLINICAL HISTORY: hypoxia, shortness of breath COMPARISON: Portable 12/24/2021 TECHNIQUE: AP portable chest image was obtained 12/28/2021 8:54 am . FINDINGS: Right base pleural and parenchymal opacification have not changed. No new or enlarging lef t-sided pleural effusion. Lung parenchymal pattern is stable. Interstitial stranding is still present in the right base. Sternotomy wires are in place. Heart and vasculature are normal. No pneumothorax. No acute bony abnor mality seen. No acute aortic findings suspected. IMPRESSION: Stable portable chest examination from 12/24/2021.
[2021-12-28] MEDS: ARFORMOTEROL TARTRATE 15 MCG/2 ML VIAL.NEB NEB SCH ×2 (15:24→20:35)
--- NOTE | 2021-12-28 18:50 | PN ---
Date of Progress Note: 12/28/2021 Subjective: The patient was seen and examined at bedside. He is confused, but otherwise doing okay. He states that he was seeing things and also confused about where he is. Physical Examination: Vital Signs: Have been reviewed and are stable. Blood pressures are more stable at this time. General: He appears in no acute distress. HEENT: Atraumatic head. Lungs: Clear to auscultation. Diminished breath sounds at bases. Extremities: Showed no evidence of edema. Laboratory Data: Has been reviewed in detail. Impression: 1.End-stage renal disease, on dialysis. The patient is on Thursday, Thursday, Thursday dialysis. 2.Altered mental status secondary to possibly metabolic encephalopathy. The patient was on steroids and Sinemet. Steroids have been discontinued. We will continue to monitor. 3.Orthostatic hypotension. The patient is on fludrocortisone and midodrine. Continue abdominal bin jeet and ANA hose stockings. 4.Urinary retention. The patient is on intermittent catheterizations. 5.Autonomic dysfunctions. The patient is currently on Sinemet. Continue to monitor. Plan: The patient's prognosis is overall guarded, but he is hemodynamically stable. I agree with st opping the steroids and monitoring closely. It would be a challenge to keep his volume status stable with orthostatic hypotension. He remains on fludrocortisone and midodrine. Continue to monit or closely. VV/MODL Voice ID: [id number] Report ID: [id number]
[2021-12-28] MEDS: AMITRIPTYLINE 25 MG TAB PO SCH (21:54)
[2021-12-28] MEDS: MONTELUKAST 10 MG TAB PO SCH (21:54)
[2021-12-29] MEDS: HEPARIN 5000 UNIT/ML 1 ML VIAL SQ SCH ×3 (01:40→17:05)
[2021-12-29 06:09] LABS: Absolute Lymphocytes (CBC) 1.5 K/uL (0.7-4.9); Lymphocytes % 9.9 % (15.3-44.8); MPV 8.1 fL (7.6-11.3); RBC Red Blood Cell Count 3.83 M/uL (4.33-5.43)
[2021-12-29 06:20] LABS: Albumin 2.9 g/dL (3.4-5.0); Magnesium 2.3 mg/dL (1.8-2.4); Phosphorus 5.9 mg/dL (2.5-4.9); Potassium 4.2 mmol/L (3.5-5.1)
--- NOTE | 2021-12-29 06:51 | P.PN ---
Date of Service: 12/29/21 Subjective: ROS: 10 point ROS as noted above, otherwise negative Physical exam GEN: Alert, orientedx2, confused HEENT: Normal conjunctiva, sclera anicteric, PERRL CV: Regular rate and rhythm, trace b/l pedal edema Pulm: mildly labored respirations on room air at rest ABD: Soft, nontender, nondistended Neuro: confused, visual hallucinations, follows commands, moves all extremities Problem List Acute hypoxemic respiratory failure secondary to pulmonary edema orthostatic hypotension with h/o hypertension Visual hallucinations ESRD - HD DM2, insulin dependent EDITA on nocturnal BIPAP h/o syncope CAD status post CABG 2019 significant orthostatic hypotension, noted during prior hospitalization as well, but more severe now continue fludrocortisone, midodrine - was on these meds at rehab and was doing better david garcia pulm added decadron on 12/26; possibly contributing hallucinations - possibly steroid induced vs sinemet side effect. 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
[2021-12-29] MEDS: INSULIN -REGULAR HUMAN 50 UNIT/0.5 ML ML SQ SCH ×4 (07:30→20:51)
[2021-12-29] MEDS: ARFORMOTEROL TARTRATE 15 MCG/2 ML VIAL.NEB NEB SCH ×2 (08:18→20:20)
[2021-12-29] MEDS: NEPRO SHAKE 237 ML CAN PO SCH ×3 (09:15→20:42)
[2021-12-29] MEDS: INSULIN LISPRO 100 UNIT/1 ML SQ SCH ×2 (09:15→20:51)
[2021-12-29] MEDS: CLOPIDOGREL 75 MG TABLET PO SCH (09:16)
[2021-12-29] MEDS: MIDODRINE HCL 5 MG TABLET PO SCH ×2 (09:16→20:40)
[2021-12-29] MEDS: VITAMIN D 5,000 UNIT CAP PO SCH (09:16)
[2021-12-29] MEDS: MULTIVITAMINS,THERAPEUT 1 TAB PO SCH (09:16)
[2021-12-29] MEDS: DOCUSATE NA 100 MG CAP PO SCH ×2 (09:16→20:40)
[2021-12-29] MEDS: CALCITROL 0.25 MCG CAP PO SCH (09:16)
[2021-12-29] MEDS: COENZYME Q10- 200 MG CAP PO SCH (09:17)
[2021-12-29] MEDS: FLUDROCORTISONE 0.1 MG TAB PO SCH (09:17)
--- NOTE | 2021-12-29 12:15 | P.PN ---
Subjective Date of Service: 12/29/21 Chief Complaint: Orthostatic hypotension No change in patient's condition is still continues to be orthostatic hypotension shortness of breath weakness Review of Systems General: Weakness Respiratory: Shortness of Breath Physical Examination - Vital Signs Temperature: 98.6 F Blood Pressure: 158/81 Pulse: 104 Respirations: 17 Pulse Ox (%): 100 - Physical Exam General: Alert, Oriented x3, Mild distress Respiratory: Clear to auscultation bilaterally, Diminished Cardiovascular: No edema, Normal pulses - Studies Laboratory Data (last 24 hrs) 12/29/21 05:39: Sodium 138, Potassium 4.2, BUN 51 H, Creatinine 6.18 H* D, Glucose 152 H, Phosphorus 5.9 H, Magnesium 2.3 12/29/21 05:39: WBC 15.1 H, Hgb 12.3 L, Hct 37.0 L, Plt Count 403 Assessment And Plan - Current Problems (Diagnosis) (1) Shortness of breath Current Visit: Yes Status: Acute Plan: d (2) Orthostatic hypotension Current Visit: Yes Status: Acute - Plan No change in patient's condition labs reviewed white count is mildly elevated blood pressure oxygenation satisfactory
[2021-12-29] MEDS: MONTELUKAST 10 MG TAB PO SCH (20:40)
[2021-12-29] MEDS: AMITRIPTYLINE 25 MG TAB PO SCH (20:40)
[2021-12-29] MEDS: ACETAMINOPHEN 500 MG TAB PO PRN (20:50)
[2021-12-30] MEDS: HEPARIN 5000 UNIT/ML 1 ML VIAL SQ SCH ×3 (01:26→17:37)
[2021-12-30] MEDS: INSULIN -REGULAR HUMAN 50 UNIT/0.5 ML ML SQ SCH ×4 (07:30→21:00)
[2021-12-30] MEDS: ARFORMOTEROL TARTRATE 15 MCG/2 ML VIAL.NEB NEB SCH ×2 (08:00→20:05)
[2021-12-30] MEDS: INSULIN LISPRO 100 UNIT/1 ML SQ SCH ×2 (08:03→21:23)
[2021-12-30] MEDS: CALCITROL 0.25 MCG CAP PO SCH (08:27)
[2021-12-30] MEDS: VITAMIN D 5,000 UNIT CAP PO SCH (08:28)
[2021-12-30] MEDS: MULTIVITAMINS,THERAPEUT 1 TAB PO SCH (08:28)
[2021-12-30] MEDS: MIDODRINE HCL 5 MG TABLET PO SCH ×2 (08:28→21:00)
[2021-12-30] MEDS: DOCUSATE NA 100 MG CAP PO SCH ×2 (08:29→21:00)
[2021-12-30] MEDS: FLUDROCORTISONE 0.1 MG TAB PO SCH (08:29)
[2021-12-30] MEDS: CLOPIDOGREL 75 MG TABLET PO SCH (08:29)
[2021-12-30] MEDS: COENZYME Q10- 200 MG CAP PO SCH (08:30)
[2021-12-30] MEDS: NEPRO SHAKE 237 ML CAN PO SCH ×3 (08:31→21:00)
--- NOTE | 2021-12-30 12:36 | CON ---
Reason For Consultation: Consultation called because of apparent autonomic dysfunction. History Of Present Illness: Mr. Seth is a 66-year-old patient who was admitted to [facility] on 12/23/2021 with shortness of breath. He is end-stage renal disease patient on hemodialysis M , Thursday, Thursday with diabetes mellitus as well. Apparently, the patient has had significant hypoxia. His said, he does have obstructive sleep apnea. At home, he uses CPAP machine; [facility], despite that, he has had ongoing episodes of apparent hallucinations and seeing children, usual o bjects, reaching for things, and seeing curtains while asleep, and at times would have sudden falls w ith significant drop in his blood pressure. She also believes he has had difficulty with moving air and breathing, but does not have COPD. He was seen at [facility] earlier in the week and a [facility] x-ray demonstrated bilateral pleural effusions with pulmonary vascular congestion and he was hypox ic while on room air. His says that at times, his oxygen saturation would go down to the 70s an d even the 80s. While at [facility], he has saturation with 2 L of O2. Has been good aroun d 100%. He has however, had an arterial blood gas that showed a slightly elevated level of CO2, with pCO2 at 45.7. His pH is essentially unremarkable and his oxygenation at that point was normal, crea tinine in the 6's and his liver function studies show slightly elevated alkaline phosphatase of 145 a nd otherwise essentially unremarkable. His brain MRI did show minimal frontal and temporal atrophy w ith slight compensatory dilatation of the anterior horn of the lateral ventricles. However, this was similar to what was found on a brain MRI without contrast, September 01, 2016. 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 Past Medical History: As noted including asbestosis, restless legs, neuropathy, end-stage renal dise ase on hemodialysis, dyslipidemia. Past Surgical History: Back surgery twice, cholecystectomy, hernia repair, cardiac catheterization w ith stent placement. Allergies: CEFUROXIME, LATEX, NAPROSYN, SULFA, AMIODARONE, CODEINE, HYDROCODONE, TRAMADOL. Medications: At home, albuterol inhaler 1 puff every 6 hours as needed, aspirin 81 mg daily with george rvastatin at night, azelastine 1 spray twice daily, Symbicort 2 puffs twice daily, Plavix 75 mg daily , Cymbalta daily, vitamin D3 5000 every 7th day, furosemide daily, gabapentin daily, also on lactulos e, magnesium oxide, metoprolol, , bupropion. Family History: Heart disease, diabetes in mother. Alzheimer in father. Social History: The patient smoked in the past. No recent alcohol or IV drug use. Review of Systems: At this point, the patient does not respond appropriately to verbalization except for 1 or 2 words __ sister's name. Not quite following commands to be able to get a reliable review of systems. However, his white count fell recent fevers or chills. No apparent nausea and vomiting. No rash. He has had the falls with drops in blood pressure and shortness of breath. Physical Examination: Vital Signs: Blood pressure 137/62, pulse of 96, respiratory rate 16 to 18, temperature 97.2, oxygen saturation 100% on 2 L of phlegm. General: Mr. Seth was asleep in bed, when I came in. He took about a minute or 2 to awaken and d id track visually, answered 1 or 2 questions. Neurological: He was disoriented to place, situation, and time. Oriented just to person, he did not follow simple commands even with repeated encouragement, commands such as show a thumbs up or lift t he index finger and point or move the feet. He did have spontaneous movements of all extremities and his eyes are conjugate. Face is symmetric. His muscle tone is symmetric. Could not fully assess h is sensation, coordination, and gait. Laboratory Studies: White blood cell count 12.2, hemoglobin 11.6, creatinine 6.16, glucose ranged fr om 173 to 209, calcium 10.2, phosphorus 5.0, AST 6, ALT less than 10, alkaline phosphatase 145. Foli c acid greater than 20. TSH 1.55. Cortisol 12.56. Assessment: Mr. Seth is a 66-year-old patient with episodes of orthostatic hypotension, actually did have orthostatic testing where on standing, his blood pressure systolic dropped to 74, diastolic of 62 and earlier while standing, it was 126/53. The etiology of his autonomic dysfunction is unclea r. He reportedly is around many coworkers at the [employer], who came down with Vidya farley e and Parkinson disease. His brain MRI shows frontal and temporal atrophy although it is mild, but t hat does suggest possibility of an early dementia, perhaps a frontotemporal type of dementia. He als o has end-stage renal disease on hemodialysis with elevated creatinine, which would contribute to enc ephalopathy. He has not had an ammonia level that also may be a contributing factor if it is elevate d. Plan: 1.Blood work from . 2.Routine electroencephalogram. 3.Consider the Sinemet 25/100 twice daily. 4.Consider Florinef or midodrine to help support blood pressure. 5.Begin gentle physical therapy and determine if the patient is a candidate for inpatient rehabilita tion since he has been 3 days now in the hospital and has been mostly bed bound. 6.This was discussed with the patient's who was in the room. Please note, I did mention to her that he may benefit from a DENICE scan to rule out Parkinson disease; however, that test is not done at this hospital. It may have to be done after his discharge, perhaps in [facility] [place]. SMITH/SAURABH Voice ID: [id number] Report ID: [id number]
--- NOTE | 2021-12-30 13:43 | P.PN ---
Subjective Date of Service: 12/30/21 Chief Complaint: Orthostatic hypotension Patient has no new complaint. Has been tolerating diet, ambulating with some support. He is stable on 2 L oxygen by nasal cannula. Physical Examination - Vital Signs Temperature: 97.0 F Blood Pressure: 124/56 Pulse: 105 Respirations: 16 Pulse Ox (%): 94 Assessment And Plan - Current Problems (Diagnosis) (1) Pulmonary edema Current Visit: Yes Status: Acute (2) End-stage renal disease on hemodialysis Current Visit: Yes Status: Acute (3) Acute respiratory failure with hypoxia Current Visit: Yes Status: Acute (4) Diabetes mellitus Current Visit: No Status: Acute Qualifiers: Diabetes mellitus type: type 2 Diabetes mellitus meterman insulin use: with mcfp use Diabetes mellitus complication status: with kidney complications Diabetes mellitus complication detail: with chronic kidney disease Chronic kidney disease stage: stage 4 (severe) Qualified Code(s): E11.22 - Type 2 diabetes mellitus with diabetic chronic kidney disease; N18.4 - Chronic kidney disease, stage 4 (severe); 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 HEENT: Normal conjunctiva, sclera anicteric, PERRL CV: Regular rate and rhythm, trace b/l pedal edema Pulm: Nonlabored breathing, clear to auscultation bilaterally. ABD: Soft, nontender, nondistended Neuro: Alert, follows commands, no focal motor deficits. Problem List Acute hypoxemic respiratory failure secondary to pulmonary edema orthostatic hypotension with h/o hypertension Visual hallucinations ESRD - HD DM2, insulin dependent EDITA on nocturnal BIPAP h/o syncope CAD status post CABG 2019 significant orthostatic hypotension, noted during prior hospitalization as well, but more severe now continue fludrocortisone, midodrine - was on these meds at rehab and was doing better. Discontinue amitriptyline. david garcia Hallucination could be secondary to Sinemet and steroid. Both medications discontinued. Bronchodilators as needed MRI: mild changes in frontal lobe - no change compared to prior MRI Neurology is following. EEG ordered per neurology recommendation. Pulmonology following Patient with moderate leukocytosis. Repeat UA.
--- NOTE | 2021-12-30 16:57 | P.PN ---
Date of Service: 12/30/21 Vital Signs Temp Pulse Resp BP Pulse Ox 97.0 F 110 H 18 119/62 94 12/30/21 16:00 12/30/21 16:00 12/30/21 16:00 12/30/21 16:00 12/30/21 16:00 Medications Acetaminophen (Acetaminophen 500 Mg Tab) 500 mg PO Q6H PRN PRN Reason: Pain scale 2-4 (Mild) Last Admin: 12/29/21 20:50 Dose: 500 mg Documented by: Albuterol Sulfate (Albuterol 2.5 Mg/3 Ml Neb Jeanne) 2.5 mg NEB [id number] PRN PRN Reason: SHORTNESS OF BREATH Arformoterol Tartrate (Arformoterol Tartrate 15 Mcg/2 Ml Vial.Neb) 15 mcg NEB BIDRESP [facility] Last Admin: 12/30/21 08:00 Dose: Not Given Documented by: Cholecalciferol (Vitamin D 5,000 Unit Cap) 5,000 unit PO DAILY [facility] Last Admin: 12/30/21 08:28 Dose: 5,000 unit Documented by: Clopidogrel Bisulfate (Clopidogrel 75 Mg Tablet) 75 mg PO DAILY [facility] Last Admin: 12/30/21 08:29 Dose: 75 mg Documented by: Coenzyme Q10 (Coenzyme Q10- 200 Mg Cap) 200 mg PO DAILY [facility] Last Admin: 12/30/21 08:30 Dose: 200 mg Documented by: Dextrose (D10w 250 Ml Bag) 125 ml IV PRN PRN; Protocol PRN Reason: PER HYPOGLYCEMIA PROTOCOL Last Admin: 12/24/21 13:06 Dose: 125 ml Documented by: Docusate Sodium (Docusate Na 100 Mg Cap) 100 mg PO BID [facility] Last Admin: 12/30/21 08:29 Dose: 100 mg Documented by: Enteral Nutritional Formula (Nepro Shake 237 Ml Can) 237 ml PO TID [facility] Last Admin: 12/30/21 13:21 Dose: Not Given Documented by: Epoetin Naseem (Epoetin 4,000 Unit/Ml Vial) 4,000 unit SQ M,W,F [facility] Last Admin: 12/27/21 16:25 Dose: 4,000 unit Documented by: Fludrocortisone Acetate (Fludrocortisone 0.1 Mg Tab) 0.1 mg PO DAILY [facility] Last Admin: 12/30/21 08:29 Dose: 0.1 mg Documented by: Gabapentin (Gabapentin 300 Mg Cap) 300 mg PO TID PRN PRN Reason: Pain scale 2-4 (Mild) Last Admin: 12/27/21 10:23 Dose: 300 mg Documented by: Glucagon (Glucagon 1 Mg/Vial) 1 mg IM 1X PRN; Protocol PRN Reason: HYPOGLYCEMIA Heparin Sodium (Porcine) (Heparin 5000 Unit/Ml 1 Ml Vial) 5,000 unit SQ Q8HR [facility] Last Admin: 12/30/21 08:31 Dose: 5,000 unit Documented by: Heparin Sodium (Porcine) (Heparin 1,000 Unit/Ml Vial) 4,000 unit IV EVERY HD PRN PRN Reason: DIALYSIS Last Admin: 12/25/21 10:16 Dose: 4,000 unit Documented by: Insulin Human Lispro (Insulin Lispro 100 Unit/1 Ml) 8 unit SQ BID [facility] Last Admin: 12/30/21 08:03 Dose: Not Given Documented by: Insulin Human Regular (Insulin -Regular Human 50 Unit/0.5 Ml Ml) 0 unit SQ ACHS [facility]; Protocol Last Admin: 12/30/21 11:30 Dose: Not Given Documented by: Midodrine (Midodrine Hcl 5 Mg Tablet) 10 mg PO BID [facility] Last Admin: 12/30/21 08:28 Dose: 10 mg Documented by: Montelukast Sodium (Montelukast 10 Mg Tab) 10 mg PO BEDTIME [facility] Last Admin: 12/29/21 20:40 Dose: 10 mg Documented by: Ondansetron HCl (Ondansetron 4 Mg/2 Ml Vial) 4 mg IV Q6HP PRN PRN Reason: NAUSEA / VOMITING Last Admin: 12/26/21 10:34 Dose: 4 mg Documented by: Sevelamer Carbonate (Sevelamer Carbonate 800 Mg Tablet) 800 mg PO TIDWM [facility] Sodium Chloride (Flush Normal Saline 10 Ml) 10 ml IV BID [facility] Last Admin: 12/30/21 08:34 Dose: 10 ml Documented by: Vitamin B Complex/Vit C/Folic Acid (Multivitamins,Therapeut 1 Tab) 1 tab PO DAILY [facility] Last Admin: 12/30/21 08:28 Dose: 1 tab Documented by: Lab Results (last 24 hrs) 12/30/21 15:18: POC Glucose 153 H 12/30/21 12:27: POC Glucose 202 H 12/30/21 07:46: POC Glucose 93 12/29/21 20:36: POC Glucose 222 H Assessment/ Plan: Nephrology No dyspnea No chest pain No acute events overnight Vitals, medications, blood work and imaging reviewed in the chart. General: Cooperative, No distress HEENT: Atraumatic Neck: Supple Respiratory: Normal resp effort Cardiovascular: Regular rate/rhythm, No Edema Gastrointestinal: Soft and benign, Non-distended Musculoskeletal: No clubbing, No contractures Integumentary: No rashes, No cyanosis Neurological: Normal speech Blood work reviewed in the chart. EXAM DESCRIPTION: RAD - Chest Single View - 12/24/2021 5:41 am CLINICAL HISTORY: f/u b/l opacities COMPARISON: Chest Single View dated 11/18/2021; Chest Single View dated 11/15/2021; Chest Single View dated 08/20/2021; Chest Single View dated 08/20/2021; Chest For Pe Angio dated 11/16/2021 FINDINGS: Lines: None. Lungs: No evidence of edema or pneumonia. Pleural: Pleural effusions, right greater than left which are similar to 11/18/2021. Cardiac: Cardiomegaly. Sternotomy. Bones: No acute fractures. IMPRESSION: Similar small bilateral effusions, right greater the left. This presumably underlying atelectasis. No other acute process identified. Conclusions/Impression: ESRD -HD TIW -Seen and examined on HD today Chronic hypotension concerning autonomic dysfunction and/or adrenal insufficiency -Continue Midodrine for orthostatic hypotension -Continue Fludrocortisone EDITA -Nocturnal CPAP Diastolic CHF, A/C -Acute HD with UF -Pulmonary following DM II with CKD & Polyneuropathy -RISS Anemia in CKD -Continue Retacrit CKD MBD Hypercalcemia -DC Calcitriol -Continue Cholecalciferol -Start Renvela -Check PTH BPH with LUTS -Continue Flomax Toxic metabolic encephalopathy of unclear etiology, waxing and waning -Neurology following
[2021-12-30] MEDS: EPOETIN 4,000 UNIT/ML VIAL SQ SCH (17:38)
[2021-12-30] MEDS: SEVELAMER CARBONATE 800 MG TABLET PO SCH (17:39)
[2021-12-30] MEDS: MONTELUKAST 10 MG TAB PO SCH (21:23)
[2021-12-31] MEDS: HEPARIN 5000 UNIT/ML 1 ML VIAL SQ SCH ×3 (00:40→17:26)
[2021-12-31 06:02] LABS: Absolute Lymphocytes (CBC) 2.1 K/uL (0.7-4.9); Hematocrit 37.3 % (39.6-49.0); Lymphocytes % 18.1 % (15.3-44.8); MPV 8.5 fL (7.6-11.3)
[2021-12-31] MEDS: INSULIN -REGULAR HUMAN 50 UNIT/0.5 ML ML SQ SCH ×4 (07:30→21:00)
[2021-12-31] MEDS: ARFORMOTEROL TARTRATE 15 MCG/2 ML VIAL.NEB NEB SCH ×2 (08:20→20:05)
[2021-12-31] MEDS: COENZYME Q10- 200 MG CAP PO SCH (08:37)
[2021-12-31] MEDS: VITAMIN D 5,000 UNIT CAP PO SCH (08:37)
[2021-12-31] MEDS: SEVELAMER CARBONATE 800 MG TABLET PO SCH ×3 (08:37→17:00)
[2021-12-31] MEDS: MULTIVITAMINS,THERAPEUT 1 TAB PO SCH (08:37)
[2021-12-31] MEDS: FLUDROCORTISONE 0.1 MG TAB PO SCH (08:37)
[2021-12-31] MEDS: CLOPIDOGREL 75 MG TABLET PO SCH (08:37)
[2021-12-31] MEDS: INSULIN LISPRO 100 UNIT/1 ML SQ SCH ×2 (08:46→21:50)
[2021-12-31] MEDS: NEPRO SHAKE 237 ML CAN PO SCH ×3 (08:48→21:00)
[2021-12-31] MEDS: MIDODRINE HCL 5 MG TABLET PO SCH ×2 (08:48→21:00)
[2021-12-31] MEDS: DOCUSATE NA 100 MG CAP PO SCH ×2 (09:00→21:00)
--- NOTE | 2021-12-31 10:28 | P.PN ---
Subjective Date of Service: 12/31/21 Chief Complaint: Orthostatic hypotension Patient complaining of urine dribbling. He is on dialysis Has been tolerating diet, ambulating with some support. He is stable on 2 L oxygen by nasal cannula. Physical Examination - Vital Signs Temperature: 96.8 F Blood Pressure: 140/72 Pulse: 100 Respirations: 20 Pulse Ox (%): 93 - Studies Laboratory Data (last 24 hrs) 12/31/21 05:40: Sodium 139, Potassium 4.0, BUN 38 H, Creatinine 5.69 H*, Glucose 139 H 12/31/21 05:40: WBC 11.4 H D, Hgb 12.2 L, Hct 37.3 L, Plt Count 356 Assessment And Plan - Current Problems (Diagnosis) (1) Pulmonary edema Current Visit: Yes Status: Acute (2) End-stage renal disease on hemodialysis Current Visit: Yes Status: Acute (3) Acute respiratory failure with hypoxia Current Visit: Yes Status: Acute (4) Diabetes mellitus Current Visit: No Status: Acute Qualifiers: Diabetes mellitus type: type 2 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 HEENT: Normal conjunctiva, sclera anicteric, PERRL CV: Regular rate and rhythm, trace b/l pedal edema Pulm: Nonlabored breathing, clear to auscultation bilaterally. ABD: Soft, nontender, nondistended Neuro: Alert, follows commands, no focal motor deficits. Problem List Acute hypoxemic respiratory failure secondary to pulmonary edema orthostatic hypotension with h/o hypertension Visual hallucinations ESRD - HD DM2, insulin dependent EDITA on nocturnal BIPAP h/o syncope CAD status post CABG 2019 BPH significant orthostatic hypotension. continue fludrocortisone, midodrine - was on these meds at rehab and was doing better. Discontinue amitriptyline. jasper hose, abd binder Hallucination could be secondary to Sinemet and steroid. Both medications discontinued. Bronchodilators as needed. Resume Flomax due to dribbling. Bladder scan for residual urine. Obtain UA by straight cath if significant residual urine. MRI: mild changes in frontal lobe - no change compared to prior MRI Neurology is following. EEG ordered per neurology recommendation. Pulmonology following.
[2021-12-31] MEDS: ACETAMINOPHEN 500 MG TAB PO PRN (11:09)
[2021-12-31] MEDS: ONDANSETRON 4 MG/2 ML VIAL IV PRN (11:09)
[2021-12-31 13:56] LABS: Urine Appearance Clear (Clear); Urine Blood 1+ (Negative); Urine Color Yellow (Yellow); Urine Glucose Trace (Negative); Urine Protein 3+ (Negative); Urine Specific Gravity 1.025 (1.005-1.030); Urine Urobilinogen 0.2 mg/dL (0.2-1.0)
[2021-12-31 14:17] LABS: Urine Bilirubin NEGATIVE (Negative); Urine Microscopic Reflex ORDER UMIC
[2021-12-31 14:18] LABS: Urine Bacteria <20 /HPF (NONE SEEN); Urine RBC <5 /HPF (NONE SEEN)
--- NOTE | 2021-12-31 20:14 | P.PN ---
Date of Service: 12/31/21 Vital Signs Temp Pulse Resp BP Pulse Ox 97.4 F 118 H 16 109/53 L 98 12/31/21 16:00 12/31/21 16:00 12/31/21 16:00 12/31/21 16:00 12/31/21 16:00 Medications Acetaminophen (Acetaminophen 500 Mg Tab) 500 mg PO Q6H PRN PRN Reason: Pain scale 2-4 (Mild) Last Admin: 12/31/21 11:09 Dose: 500 mg Documented by: Albuterol Sulfate (Albuterol 2.5 Mg/3 Ml Neb Jeanne) 2.5 mg NEB [id number] PRN PRN Reason: SHORTNESS OF BREATH Arformoterol Tartrate (Arformoterol Tartrate 15 Mcg/2 Ml Vial.Neb) 15 mcg NEB BIDRESP [facility] Last Admin: 12/31/21 08:20 Dose: 15 mcg Documented by: Cholecalciferol (Vitamin D 5,000 Unit Cap) 5,000 unit PO DAILY [facility] Last Admin: 12/31/21 08:37 Dose: 5,000 unit Documented by: Clopidogrel Bisulfate (Clopidogrel 75 Mg Tablet) 75 mg PO DAILY [facility] Last Admin: 12/31/21 08:37 Dose: 75 mg Documented by: Coenzyme Q10 (Coenzyme Q10- 200 Mg Cap) 200 mg PO DAILY [facility] Last Admin: 12/31/21 08:37 Dose: 200 mg Documented by: Dextrose (D10w 250 Ml Bag) 125 ml IV PRN PRN; Protocol PRN Reason: PER HYPOGLYCEMIA PROTOCOL Last Admin: 12/24/21 13:06 Dose: 125 ml Documented by: Docusate Sodium (Docusate Na 100 Mg Cap) 100 mg PO BID [facility] Last Admin: 12/31/21 09:00 Dose: Not Given Documented by: Enteral Nutritional Formula (Nepro Shake 237 Ml Can) 237 ml PO TID [facility] Last Admin: 12/31/21 14:00 Dose: 237 ml Documented by: Epoetin Naseem (Epoetin 4,000 Unit/Ml Vial) 4,000 unit SQ M,W,F [facility] Last Admin: 12/30/21 17:38 Dose: 4,000 unit Documented by: Fludrocortisone Acetate (Fludrocortisone 0.1 Mg Tab) 0.1 mg PO DAILY [facility] Last Admin: 12/31/21 08:37 Dose: 0.1 mg Documented by: Gabapentin (Gabapentin 300 Mg Cap) 300 mg PO TID PRN PRN Reason: Pain scale 2-4 (Mild) Last Admin: 12/27/21 10:23 Dose: 300 mg Documented by: Glucagon (Glucagon 1 Mg/Vial) 1 mg IM 1X PRN; Protocol PRN Reason: HYPOGLYCEMIA Heparin Sodium (Porcine) (Heparin 5000 Unit/Ml 1 Ml Vial) 5,000 unit SQ Q8HR [facility] Last Admin: 12/31/21 17:26 Dose: 5,000 unit Documented by: Heparin Sodium (Porcine) (Heparin 1,000 Unit/Ml Vial) 4,000 unit IV EVERY HD PRN PRN Reason: DIALYSIS Last Admin: 12/25/21 10:16 Dose: 4,000 unit Documented by: Insulin Human Lispro (Insulin Lispro 100 Unit/1 Ml) 8 unit SQ BID [facility] Last Admin: 12/31/21 08:46 Dose: Not Given Documented by: Insulin Human Regular (Insulin -Regular Human 50 Unit/0.5 Ml Ml) 0 unit SQ ACHS [facility]; Protocol Last Admin: 12/31/21 17:26 Dose: 5 unit Documented by: Midodrine (Midodrine Hcl 5 Mg Tablet) 10 mg PO BID [facility] Last Admin: 12/31/21 08:48 Dose: Not Given Documented by: Montelukast Sodium (Montelukast 10 Mg Tab) 10 mg PO BEDTIME [facility] Last Admin: 12/30/21 21:23 Dose: 10 mg Documented by: Ondansetron HCl (Ondansetron 4 Mg/2 Ml Vial) 4 mg IV Q6HP PRN PRN Reason: NAUSEA / VOMITING Last Admin: 12/31/21 11:09 Dose: 4 mg Documented by: Sevelamer Carbonate (Sevelamer Carbonate 800 Mg Tablet) 800 mg PO TIDWM [facility] Last Admin: 12/31/21 17:00 Dose: Not Given Documented by: Sodium Chloride (Flush Normal Saline 10 Ml) 10 ml IV BID [facility] Last Admin: 12/31/21 08:48 Dose: 10 ml Documented by: Vitamin B Complex/Vit C/Folic Acid (Multivitamins,Therapeut 1 Tab) 1 tab PO DAILY [facility] Last Admin: 12/31/21 08:37 Dose: 1 tab Documented by: Lab Results (last 24 hrs) 12/31/21 19:58: POC Glucose 209 H 12/31/21 15:28: POC Glucose 219 H 12/31/21 13:46: Urine Color Yellow, Urine Appearance Clear, Urine pH 7.0, Ur Specific [place] 1.025, Glucose (UA)(Auto) Trace, Urine Ketones Negative, Urine Blood 1+ H, Urine Nitrite Negative, Urine Bilirubin Negative, Urine Urobilinogen 0.2, Ur Leukocyte Esterase Trace H, Urine RBC <5, Urine WBC 20-50 H, Ur Squamous Epith Cells <5, Urine Bacteria <20, Urine Culture Reflexed Reflexed, Urine Total Protein 3+ H 12/31/21 13:16: Urine Color Cancelled, Urine Appearance Cancelled, Urine pH Cancelled, Ur Specific [place] Cancelled, Glucose (UA)(Auto) Cancelled, Urine Ketones Cancelled, Urine Blood Cancelled, Urine Nitrite Cancelled, Urine Bilirubin Cancelled, Urine Urobilinogen Cancelled, Ur Leukocyte Esterase Cancelled, Urine RBC Cancelled, Urine WBC Cancelled, Ur Squamous Epith Cells Cancelled, Ur Urothelial Cells Cancelled, Calcium Oxalate Crystal Cancelled, Uric Acid Crystals Cancelled, Triple Phos Crystals Cancelled, Other Crystals Cancelled, Amorphous Sediment Cancelled, Glitter Cells Cancelled, Urine Bacteria Cancelled, Hyaline Casts Cancelled, Fine Granular Casts Cancelled, Coarse Granular Casts Cancelled, Waxy Casts Cancelled, RBC Casts Cancelled, WBC Casts Cancelled, Urine Mucus Cancelled, Urine Other Cancelled, Urine Trichomonas Cancelled, Urine Yeast Cancelled, Ur Yeast w Hyphae Cancelled, Urine Yeast (Budding) Cancelled, Urine Sperm Cancelled, Urine Culture Reflexed Cancelled, Urine Total Volume Cancelled, Urine Total Protein Cancelled 12/31/21 13:15: Urine Color Cancelled, Urine Appearance Cancelled, Urine pH Cancelled, Ur Specific [place] Cancelled, Glucose (UA)(Auto) Cancelled, Urine Ketones Cancelled, Urine Blood Cancelled, Urine Nitrite Cancelled, Urine Bilirubin Cancelled, Urine Urobilinogen Cancelled, Ur Leukocyte Esterase Cancelled, Urine Total Protein Cancelled 12/31/21 11:07: POC Glucose 163 H 12/31/21 08:08: POC Glucose 133 H 12/31/21 05:40: PTH Intact 19.1 12/31/21 05:40: Sodium 139, Potassium 4.0, Chloride 104, Carbon Dioxide 29, BUN 38 H, Creatinine 5.69 H*, Estimated GFR 10 L, Glucose 139 H, Calcium 10.2 H 12/31/21 05:40: WBC 11.4 H D, RBC 3.80 L, Hgb 12.2 L, Hct 37.3 L, MCV 98.1, MCH 32.2, MCHC 32.8, RDW 14.1, Plt Count 356, MPV 8.5, Neutrophils % 70.4, Lymphocytes % 18.1, Monocytes % 8.8, Eosinophils % 1.6, Basophils % 1.1, Absolute Neutrophils 8.1 H, Absolute Lymphocytes 2.1, Absolute Monocytes 1.0, Absolute Eosinophils 0.2, Absolute Basophils 0.1 12/30/21 20:24: POC Glucose 186 H 12/26/21 12:47: Whole Bld Vitamin B1 220 H Assessment/ Plan: Nephrology No dyspnea No chest pain Reports dysuria and dribbling No acute events overnight Vitals, medications, blood work and imaging reviewed in the chart. General: Cooperative, No distress HEENT: Atraumatic Neck: Supple Respiratory: Normal resp effort Cardiovascular: Regular rate/rhythm, No Edema Gastrointestinal: Soft and benign, Non-distended Musculoskeletal: No clubbing, No contractures Integumentary: No rashes, No cyanosis Neurological: Normal speech Blood work reviewed in the chart. EXAM DESCRIPTION: RAD - Chest Single View - 12/24/2021 5:41 am CLINICAL HISTORY: f/u b/l opacities COMPARISON: Chest Single View dated 11/18/2021; Chest Single View dated 11/15/2021; Chest Single View dated 08/20/2021; Chest Single View dated 08/20/2021; Chest For Pe Angio dated 11/16/2021 FINDINGS: Lines: None. Lungs: No evidence of edema or pneumonia. Pleural: Pleural effusions, right greater than left which are similar to 11/18/2021. Cardiac: Cardiomegaly. Sternotomy. Bones: No acute fractures. IMPRESSION: Similar small bilateral effusions, right greater the left. This presumably underlying atelectasis. No other acute process identified. Conclusions/Impression: ESRD -HD TIW Chronic hypotension concerning autonomic dysfunction and/or adrenal insufficiency -Continue Midodrine for orthostatic hypotension -Continue Fludrocortisone EDITA -Nocturnal CPAP Diastolic CHF, A/C -Acute HD with UF -Pulmonary following DM II with CKD & Polyneuropathy -RISS Anemia in CKD -Continue Retacrit CKD MBD Hypercalcemia -Continue Cholecalciferol -Continue Renvela BPH with LUTS -Consider Flomax Toxic metabolic encephalopathy of unclear etiology, waxing and waning -Neurology following
[2021-12-31] MEDS: MONTELUKAST 10 MG TAB PO SCH (21:48)
[2021-12-31] MEDS: GABAPENTIN 300 MG CAP PO PRN (21:49)
[2022-01-01] MEDS: HEPARIN 5000 UNIT/ML 1 ML VIAL SQ SCH ×3 (01:46→17:17)
[2022-01-01 05:54] LABS: Absolute Lymphocytes (CBC) 3.1 K/uL (0.7-4.9); Hematocrit 38.5 % (39.6-49.0); Lymphocytes % 9.7 % (15.3-44.8); MPV 8.6 fL (7.6-11.3)
[2022-01-01 06:20] LABS: Albumin 2.7 g/dL (3.4-5.0); Bilirubin Total 0.4 mg/dL (0.2-1.0); Potassium 4.6 mmol/L (3.5-5.1); Protein, Total 7.4 g/dL (6.4-8.2)
[2022-01-01] MEDS: INSULIN -REGULAR HUMAN 50 UNIT/0.5 ML ML SQ SCH ×4 (07:30→22:59)
[2022-01-01] MEDS: ARFORMOTEROL TARTRATE 15 MCG/2 ML VIAL.NEB NEB SCH ×2 (07:50→20:00)
--- NOTE | 2022-01-01 08:20 | EEG ---
CHART: [id number] TEST ID#: [id number] DATE OF STUDY: 12/31/2021 THE EEG WAS RECORDED PORTABLE IN THE PATIENT'S ROOM ON A 17 CHANNEL MACHINE. ELECTRODES WERE APPLIED IN THE USUAL MANNER USING THE INTERNATIONAL 10-20 SYSTEM. THE WAKING BACKGROUND RHYTHM IN THIS RECORD CONSISTS OF POORLY DEVELOPED AND POORLY ORGANIZED WAVES OF 6-7 HZ., MAXIMAL IN THE POSTERIOR HEAD REGIONS WHICH ATTENUATE NORMALLY WITH EYE OPENING. LOW-VOLTAGE 15-18 HZ MIXED WITH MODERATE VOLTAGE 1.5-3 HZ ACTIVITY IS EXPRESSED IN THE FORNAL REGIONS. THERE ARE NO FOCAL OR LATERALIZING FEATURES. NO EPILEPTIFORM ACTIVITY APPEARS. SLEEP DID NOT OCCUR. HYPERVENTILATION WAS NOT PERFORMED. PHOTIC STIMULATION PRODUCED NO DRIVING BILATERALLY. IMPRESSION: THIS IS A MILD TO MODERATELY ABNORMAL ROUTINE EEG DUE TO A MILD TO MODERATE SLOW BACKGROUND. THIS IS A NON-SPECIFIC FINDING INDICATING THE PRESENCE OF A MILD TO MODERATE DIFFUSE DISTRBANCE IN CEREBRAL FUNCTION.
[2022-01-01 08:44] LABS: Absolute Lymphocytes (CBC) 2.2 K/uL (0.7-4.9); Hematocrit 37.4 % (39.6-49.0); Lymphocytes % 8.4 % (15.3-44.8); MPV 8.2 fL (7.6-11.3); RBC Red Blood Cell Count 3.79 M/uL (4.33-5.43)
[2022-01-01] MEDS: INSULIN LISPRO 100 UNIT/1 ML SQ SCH ×2 (08:54→23:00)
[2022-01-01] MEDS: MULTIVITAMINS,THERAPEUT 1 TAB PO SCH (09:26)
[2022-01-01] MEDS: DOCUSATE NA 100 MG CAP PO SCH ×2 (09:26→20:55)
[2022-01-01] MEDS: SEVELAMER CARBONATE 800 MG TABLET PO SCH ×3 (09:27→16:06)
[2022-01-01] MEDS: VITAMIN D 5,000 UNIT CAP PO SCH (09:27)
[2022-01-01] MEDS: CLOPIDOGREL 75 MG TABLET PO SCH (09:28)
[2022-01-01] MEDS: MIDODRINE HCL 5 MG TABLET PO SCH ×2 (09:28→22:00)
[2022-01-01] MEDS: COENZYME Q10- 200 MG CAP PO SCH (09:29)
[2022-01-01] MEDS: FLUDROCORTISONE 0.1 MG TAB PO SCH (09:29)
[2022-01-01] MEDS: NEPRO SHAKE 237 ML CAN PO SCH ×3 (09:30→20:56)
[2022-01-01] MEDS ORDERED: Levofloxacin 750mg IV 750 MG/150 ML BAG IV SCH (10:00)
[2022-01-01] MEDS ORDERED: Levofloxacin 750mg IV 750 MG/150 ML BAG IV ONE (10:00)
[2022-01-01] MEDS ORDERED: VANCOMYCIN 1 GM in NA CHLORIDE 0.9% 250 ML IVPB SCH (10:00)
[2022-01-01 10:23] LABS: Blood Morphology Comment NOT SEEN (NOT SEEN); Platelet Estimate ADEQ; Smudge Cells PRESENT
--- NOTE | 2022-01-01 13:00 | P.PN ---
Subjective Date of Service: 01/01/22 Chief Complaint: Orthostatic hypotension Patient states he feels much better today. He reports regular bowel movement, denies any abdominal pain. He has not voided since the straight urinary catheterization. He is stable on 2 L oxygen by nasal cannula. Physical Examination - Vital Signs Temperature: 97.8 F Blood Pressure: 120/72 Pulse: 102 Respirations: 20 Pulse Ox (%): 100 - Studies Laboratory Data (last 24 hrs) 01/01/22 08:34: WBC 26.1 H* D, Hgb 12.2 L, Hct 37.4 L, Plt Count 332 01/01/22 05:15: Sodium 138, Potassium 4.6, BUN 51 H, Creatinine 7.09 H* D, Glucose 116 H, Total Bilirubin 0.4, AST 13 L, ALT 12, Alkaline Phosphatase 120 H 01/01/22 05:15: WBC 32.1 H* D, Hgb 12.6 L, Hct 38.5 L, Plt Count 376 Assessment And Plan - Current Problems (Diagnosis) (1) Pulmonary edema Current Visit: Yes Status: Acute (2) End-stage renal disease on hemodialysis Current Visit: Yes Status: Acute (3) Acute respiratory failure with hypoxia Current Visit: Yes Status: Acute (4) Diabetes mellitus Current Visit: No Status: Acute Qualifiers: Diabetes mellitus type: type 2 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 HEENT: Normal conjunctiva, sclera anicteric, PERRL CV: Regular rate and rhythm, trace b/l pedal edema Pulm: Nonlabored breathing, clear to auscultation bilaterally. ABD: Soft, nontender, nondistended Neuro: Alert, follows commands, no focal motor deficits. Problem List Acute hypoxemic respiratory failure secondary to pulmonary edema orthostatic hypotension with h/o hypertension Visual hallucinations ESRD - HD DM2, insulin dependent EDITA on nocturnal BIPAP h/o syncope CAD status post CABG 2019 BPH UTI Leukocytosis significant orthostatic hypotension. continue fludrocortisone, midodrine - was on these meds at rehab and was doing better. Amitriptyline discontinued. jasper hose, abd binder Hallucination could be secondary to Sinemet and steroid. Both medications discontinued. No more hallucinations Bronchodilators as needed. Bladder scan showed residual urine of 400 ml. Resumed Flomax due to dribbling. UA with mild evidence of UTI. Associated leukocytosis. Urine cultures pending. Patient is started on vancomycin and Levaquin pending urine culture result. MRI: mild changes in frontal lobe - no change compared to prior MRI Neurology is following. EEG unremarkable. Pulmonology following. Monitor CBC to follow leukocytosis. Patient accepted to [facility] for acute rehab.
[2022-01-01] MEDS: EPOETIN 4,000 UNIT/ML VIAL SQ SCH (17:17)
[2022-01-01] MEDS: ONDANSETRON 4 MG/2 ML VIAL IV PRN (17:17)
--- NOTE | 2022-01-01 19:45 | P.PN ---
Date of Service: 01/01/22 Vital Signs Temp Pulse Resp BP Pulse Ox 97.1 F 109 H 20 117/60 100 01/01/22 16:00 01/01/22 16:00 01/01/22 16:00 01/01/22 16:00 01/01/22 12:59 Medications Acetaminophen (Acetaminophen 500 Mg Tab) 500 mg PO Q6H PRN PRN Reason: Pain scale 2-4 (Mild) Last Admin: 12/31/21 11:09 Dose: 500 mg Documented by: Albuterol Sulfate (Albuterol 2.5 Mg/3 Ml Neb Jeanne) 2.5 mg NEB [id number] PRN PRN Reason: SHORTNESS OF BREATH Arformoterol Tartrate (Arformoterol Tartrate 15 Mcg/2 Ml Vial.Neb) 15 mcg NEB BIDRESP [facility] Last Admin: 01/01/22 07:50 Dose: 15 mcg Documented by: Cholecalciferol (Vitamin D 5,000 Unit Cap) 5,000 unit PO DAILY [facility] Last Admin: 01/01/22 09:27 Dose: 5,000 unit Documented by: Clopidogrel Bisulfate (Clopidogrel 75 Mg Tablet) 75 mg PO DAILY [facility] Last Admin: 01/01/22 09:28 Dose: 75 mg Documented by: Coenzyme Q10 (Coenzyme Q10- 200 Mg Cap) 200 mg PO DAILY [facility] Last Admin: 01/01/22 09:29 Dose: 200 mg Documented by: Dextrose (D10w 250 Ml Bag) 125 ml IV PRN PRN; Protocol PRN Reason: PER HYPOGLYCEMIA PROTOCOL Last Admin: 12/24/21 13:06 Dose: 125 ml Documented by: Docusate Sodium (Docusate Na 100 Mg Cap) 100 mg PO BID [facility] Last Admin: 01/01/22 09:26 Dose: 100 mg Documented by: Enteral Nutritional Formula (Nepro Shake 237 Ml Can) 237 ml PO TID [facility] Last Admin: 01/01/22 13:18 Dose: 237 ml Documented by: Epoetin Naseem (Epoetin 4,000 Unit/Ml Vial) 4,000 unit SQ M,W,F [facility] Last Admin: 01/01/22 17:17 Dose: 4,000 unit Documented by: Fludrocortisone Acetate (Fludrocortisone 0.1 Mg Tab) 0.1 mg PO DAILY [facility] Last Admin: 01/01/22 09:29 Dose: 0.1 mg Documented by: Gabapentin (Gabapentin 300 Mg Cap) 300 mg PO TID PRN PRN Reason: Pain scale 2-4 (Mild) Last Admin: 12/31/21 21:49 Dose: 300 mg Documented by: Glucagon (Glucagon 1 Mg/Vial) 1 mg IM 1X PRN; Protocol PRN Reason: HYPOGLYCEMIA Heparin Sodium (Porcine) (Heparin 5000 Unit/Ml 1 Ml Vial) 5,000 unit SQ Q8HR [facility] Last Admin: 01/01/22 17:17 Dose: 5,000 unit Documented by: Heparin Sodium (Porcine) (Heparin 1,000 Unit/Ml Vial) 4,000 unit IV EVERY HD PRN PRN Reason: DIALYSIS Last Admin: 01/01/22 11:50 Dose: 4,000 unit Documented by: Vancomycin HCl 1 gm/ Sodium (Chloride) 250 mls @ 150 mls/hr IVPB AFTER EACH DIALYSIS [facility]; Protocol Levofloxacin/Dextrose (Levaquin 500 Mg/100 Ml Ivpb) 500 mg in 100 mls @ 100 mls/hr IV Q48H [facility] Insulin Human Lispro (Insulin Lispro 100 Unit/1 Ml) 8 unit SQ BID [facility] Last Admin: 01/01/22 08:54 Dose: Not Given Documented by: Insulin Human Regular (Insulin -Regular Human 50 Unit/0.5 Ml Ml) 0 unit SQ ACHS [facility]; Protocol Last Admin: 01/01/22 16:06 Dose: Not Given Documented by: Midodrine (Midodrine Hcl 5 Mg Tablet) 10 mg PO BID [facility] Last Admin: 01/01/22 09:28 Dose: 10 mg Documented by: Montelukast Sodium (Montelukast 10 Mg Tab) 10 mg PO BEDTIME [facility] Last Admin: 12/31/21 21:48 Dose: 10 mg Documented by: Ondansetron HCl (Ondansetron 4 Mg/2 Ml Vial) 4 mg IV Q6HP PRN PRN Reason: NAUSEA / VOMITING Last Admin: 01/01/22 17:17 Dose: 4 mg Documented by: Sevelamer Carbonate (Sevelamer Carbonate 800 Mg Tablet) 800 mg PO TIDWM [facility] Last Admin: 01/01/22 16:06 Dose: Not Given Documented by: Sodium Chloride (Flush Normal Saline 10 Ml) 10 ml IV BID [facility] Last Admin: 01/01/22 09:30 Dose: 10 ml Documented by: Vitamin B Complex/Vit C/Folic Acid (Multivitamins,Therapeut 1 Tab) 1 tab PO DAILY [facility] Last Admin: 01/01/22 09:26 Dose: 1 tab Documented by: Lab Results (last 24 hrs) 01/01/22 15:45: POC Glucose 128 H 01/01/22 12:21: POC Glucose 149 H 01/01/22 08:38: POC Glucose 84 01/01/22 08:34: WBC 26.1 H* D, RBC 3.79 L, Hgb 12.2 L, Hct 37.4 L, MCV 98.8, MCH 32.1, MCHC 32.5, RDW 14.4, Plt Count 332, MPV 8.2, Neutrophils % 83.9 H, Lymphocytes % 8.4 L, Monocytes % 6.2, Eosinophils % 0.7, Basophils % 0.8, Absolute Neutrophils 21.9 H, Absolute Lymphocytes 2.2, Absolute Monocytes 1.6 H, Absolute Eosinophils 0.2, Absolute Basophils 0.2 01/01/22 05:15: Sodium 138, Potassium 4.6, Chloride 104, Carbon Dioxide 27, BUN 51 H, Creatinine 7.09 H* D, Estimated GFR 8 L, Glucose 116 H, Calcium 10.3 H, Total Bilirubin 0.4, AST 13 L, ALT 12, Alkaline Phosphatase 120 H, Serum Total Protein 7.4, Albumin 2.7 L, Globulin 4.7 H, Albumin/Globulin Ratio 0.6 L 01/01/22 05:15: WBC 32.1 H* D, RBC 3.90 L, Hgb 12.6 L, Hct 38.5 L, MCV 99.0, MCH 32.4, MCHC 32.7, RDW 14.2, Plt Count 376, MPV 8.6, Neutrophils % 82.9 H, Lymphocytes % 9.7 L, Monocytes % 6.2, Eosinophils % 0.6, Basophils % 0.6, Absolute Neutrophils 26.6 H, Segmented Neutrophils 78, Band Neutrophils 2 H, Absolute Lymphocytes 3.1, Lymphocytes 13 L, Monocytes 7, Absolute Monocytes 2.0 H, Absolute Eosinophils 0.2, Absolute Basophils 0.2, Smudge Cells Present, Platelet Estimate Adeq, Morphology Comment Not seen 01/01/22 00:18: POC Glucose 168 H 12/31/21 19:58: POC Glucose 209 H Assessment/ Plan: Nephrology No dyspnea No chest pain No acute events overnight Vitals, medications, blood work and imaging reviewed in the chart. General: Cooperative, No distress HEENT: Atraumatic Neck: Supple Respiratory: Normal resp effort Cardiovascular: Regular rate/rhythm, No Edema Gastrointestinal: Soft and benign, Non-distended Musculoskeletal: No clubbing, No contractures Integumentary: No rashes, No cyanosis Neurological: Normal speech Blood work reviewed in the chart. EXAM DESCRIPTION: RAD - Chest Single View - 12/24/2021 5:41 am CLINICAL HISTORY: f/u b/l opacities COMPARISON: Chest Single View dated 11/18/2021; Chest Single View dated 11/15/2021; Chest Single View dated 08/20/2021; Chest Single View dated 08/20/2021; Chest For Pe Angio dated 11/16/2021 FINDINGS: Lines: None. Lungs: No evidence of edema or pneumonia. Pleural: Pleural effusions, right greater than left which are similar to 11/18/2021. Cardiac: Cardiomegaly. Sternotomy. Bones: No acute fractures. IMPRESSION: Similar small bilateral effusions, right greater the left. This presumably underlying atelectasis. No other acute process identified. Conclusions/Impression: ESRD -HD TIW Chronic hypotension concerning autonomic dysfunction and/or adrenal insufficiency -Continue Midodrine for orthostatic hypotension -Continue Fludrocortisone EDITA -Nocturnal CPAP Diastolic CHF, A/C -HD with UF -Pulmonary following DM II with CKD & Polyneuropathy -RISS Anemia in CKD -Continue Retacrit CKD MBD Hypercalcemia -Continue Cholecalciferol -Continue Renvela BPH with LUTS -Start Flomax Toxic metabolic encephalopathy of unclear etiology, waxing and waning -Neurology following
[2022-01-01] MEDS: MONTELUKAST 10 MG TAB PO SCH (20:55)
[2022-01-01] MEDS ORDERED: TAMSULOSIN 0.4 MG SR CAP PO SCH (21:00)
[2022-01-02] MEDS: HEPARIN 5000 UNIT/ML 1 ML VIAL SQ SCH ×2 (00:57→08:17)
[2022-01-02] MEDS ORDERED: CALCIUM CARBONATE CHEW 500MG TAB PO ONE (05:27)
[2022-01-02 06:11] LABS: Absolute Lymphocytes (CBC) 1.3 K/uL (0.7-4.9); Hematocrit 36.4 % (39.6-49.0); Lymphocytes % 7.8 % (15.3-44.8); MPV 8.5 fL (7.6-11.3); RBC Red Blood Cell Count 3.69 M/uL (4.33-5.43)
[2022-01-02 06:39] LABS: Potassium 4.2 mmol/L (3.5-5.1)
[2022-01-02] MEDS: ARFORMOTEROL TARTRATE 15 MCG/2 ML VIAL.NEB NEB SCH (07:58)
[2022-01-02] MEDS: SEVELAMER CARBONATE 800 MG TABLET PO SCH ×2 (08:00→11:53)
[2022-01-02] MEDS: DOCUSATE NA 100 MG CAP PO SCH (08:16)
[2022-01-02] MEDS: MULTIVITAMINS,THERAPEUT 1 TAB PO SCH (08:17)
[2022-01-02] MEDS: CLOPIDOGREL 75 MG TABLET PO SCH (08:18)
[2022-01-02] MEDS: COENZYME Q10- 200 MG CAP PO SCH (08:18)
[2022-01-02] MEDS: FLUDROCORTISONE 0.1 MG TAB PO SCH (08:18)
[2022-01-02] MEDS: MIDODRINE HCL 5 MG TABLET PO SCH (08:18)
[2022-01-02] MEDS: VITAMIN D 5,000 UNIT CAP PO SCH (08:18)
[2022-01-02] MEDS: NEPRO SHAKE 237 ML CAN PO SCH ×2 (08:19→14:00)
[2022-01-02] MEDS: ONDANSETRON 4 MG/2 ML VIAL IV PRN (08:46)
[2022-01-02] MEDS: INSULIN -REGULAR HUMAN 50 UNIT/0.5 ML ML SQ SCH ×3 (08:46→16:30)
[2022-01-02] MEDS: INSULIN LISPRO 100 UNIT/1 ML SQ SCH (08:46)
[2022-01-02 09:13] VITALS: O2SAT 95
--- NOTE | 2022-01-02 10:39 | P.PN ---
Date of Service: 01/02/22 Vital Signs Temp Pulse Resp BP Pulse Ox 96.8 F 112 H 14 140/72 100 01/02/22 08:00 01/02/22 08:00 01/02/22 08:00 01/02/22 08:00 01/02/22 08:00 Medications Acetaminophen (Acetaminophen 500 Mg Tab) 500 mg PO Q6H PRN PRN Reason: Pain scale 2-4 (Mild) Last Admin: 12/31/21 11:09 Dose: 500 mg Documented by: Albuterol Sulfate (Albuterol 2.5 Mg/3 Ml Neb Jeanne) 2.5 mg NEB [id number] PRN PRN Reason: SHORTNESS OF BREATH Arformoterol Tartrate (Arformoterol Tartrate 15 Mcg/2 Ml Vial.Neb) 15 mcg NEB BIDRESP [facility] Last Admin: 01/02/22 07:58 Dose: 15 mcg Documented by: Cholecalciferol (Vitamin D 5,000 Unit Cap) 5,000 unit PO DAILY [facility] Last Admin: 01/02/22 08:18 Dose: 5,000 unit Documented by: Clopidogrel Bisulfate (Clopidogrel 75 Mg Tablet) 75 mg PO DAILY [facility] Last Admin: 01/02/22 08:18 Dose: 75 mg Documented by: Coenzyme Q10 (Coenzyme Q10- 200 Mg Cap) 200 mg PO DAILY [facility] Last Admin: 01/02/22 08:18 Dose: 200 mg Documented by: Dextrose (D10w 250 Ml Bag) 125 ml IV PRN PRN; Protocol PRN Reason: PER HYPOGLYCEMIA PROTOCOL Last Admin: 12/24/21 13:06 Dose: 125 ml Documented by: Docusate Sodium (Docusate Na 100 Mg Cap) 100 mg PO BID [facility] Last Admin: 01/02/22 08:16 Dose: 100 mg Documented by: Enteral Nutritional Formula (Nepro Shake 237 Ml Can) 237 ml PO TID [facility] Last Admin: 01/02/22 08:19 Dose: 237 ml Documented by: Epoetin Naseem (Epoetin 4,000 Unit/Ml Vial) 4,000 unit SQ M,W,F [facility] Last Admin: 01/01/22 17:17 Dose: 4,000 unit Documented by: Fludrocortisone Acetate (Fludrocortisone 0.1 Mg Tab) 0.1 mg PO DAILY [facility] Last Admin: 01/02/22 08:18 Dose: 0.1 mg Documented by: Gabapentin (Gabapentin 300 Mg Cap) 300 mg PO TID PRN PRN Reason: Pain scale 2-4 (Mild) Last Admin: 12/31/21 21:49 Dose: 300 mg Documented by: Glucagon (Glucagon 1 Mg/Vial) 1 mg IM 1X PRN; Protocol PRN Reason: HYPOGLYCEMIA Heparin Sodium (Porcine) (Heparin 5000 Unit/Ml 1 Ml Vial) 5,000 unit SQ Q8HR [facility] Last Admin: 01/02/22 08:17 Dose: 5,000 unit Documented by: Heparin Sodium (Porcine) (Heparin 1,000 Unit/Ml Vial) 4,000 unit IV EVERY HD PRN PRN Reason: DIALYSIS Last Admin: 01/01/22 11:50 Dose: 4,000 unit Documented by: Insulin Human Lispro (Insulin Lispro 100 Unit/1 Ml) 8 unit SQ BID [facility] Last Admin: 01/02/22 08:46 Dose: 8 unit Documented by: Insulin Human Regular (Insulin -Regular Human 50 Unit/0.5 Ml Ml) 0 unit SQ [facility]; Protocol Last Admin: 01/02/22 08:46 Dose: 3 unit Documented by: Metoclopramide HCl (Metoclopramide 10 Mg/2ml Inj) 10 mg IV 1X [facility] Midodrine (Midodrine Hcl 5 Mg Tablet) 10 mg PO BID [facility] Last Admin: 01/02/22 08:18 Dose: 10 mg Documented by: Montelukast Sodium (Montelukast 10 Mg Tab) 10 mg PO BEDTIME [facility] Last Admin: 01/01/22 20:55 Dose: 10 mg Documented by: Ondansetron HCl (Ondansetron 4 Mg/2 Ml Vial) 4 mg IV Q6HP PRN PRN Reason: NAUSEA / VOMITING Last Admin: 01/02/22 08:46 Dose: 4 mg Documented by: Sevelamer Carbonate (Sevelamer Carbonate 800 Mg Tablet) 800 mg PO TIDWM [facility] Last Admin: 01/02/22 08:00 Dose: Not Given Documented by: Sodium Chloride (Flush Normal Saline 10 Ml) 10 ml IV BID [facility] Last Admin: 01/02/22 08:19 Dose: 10 ml Documented by: Sucralfate (Sucralfate 1gm/10ml Ucup) 1 gm PO [facility] Tamsulosin HCl (Tamsulosin 0.4 Mg Sr Cap) 0.4 mg PO BEDTIME [facility] Last Admin: 01/01/22 20:55 Dose: 0.4 mg Documented by: Trazodone HCl (Trazodone 50 Mg Tablet) 50 mg PO BEDTIME [facility] Vitamin B Complex/Vit C/Folic Acid (Multivitamins,Therapeut 1 Tab) 1 tab PO DAILY [facility] Last Admin: 01/02/22 08:17 Dose: 1 tab Documented by: Lab Results (last 24 hrs) 01/02/22 07:50: POC Glucose 197 H 01/02/22 05:59: Sodium 136, Potassium 4.2, Chloride 102, Carbon Dioxide 27, BUN 40 H, Creatinine 5.61 H* D, Estimated GFR 10 L, Glucose 223 H, Calcium 10.5 H 01/02/22 05:59: WBC 16.6 H D, RBC 3.69 L, Hgb 11.9 L, Hct 36.4 L, MCV 98.4, MCH 32.2, MCHC 32.7, RDW 14.4, Plt Count 315, MPV 8.5, Neutrophils % 84.5 H, Lymphocytes % 7.8 L, Monocytes % 5.9, Eosinophils % 1.1, Basophils % 0.7, Absol [place] Neutrophils 14.0 H, Absolute Lymphocytes 1.3, Absolute Monocytes 1.0, Absolute Eosinophils 0.2, Absolute Basophils 0.1 01/01/22 21:41: POC Glucose 205 H 01/01/22 15:45: POC Glucose 128 H 01/01/22 12:21: POC Glucose 149 H 12/28/21 12:11: Anti-Proteinase 3 <1.0, Anti-Myeloperoxidase <1.0 Microbiology Results 12/31/21 13:15 Catheterized Urine [place] Count - Preliminary BETWEEN 10,000 & 100,000 CFU/ML 12/31/21 13:15 Catheterized Urine - Preliminary Assessment/ Plan: Nephrology No dyspnea No chest pain Nausea this morning No acute events overnight Vitals, medications, blood work and imaging reviewed in the chart. General: Cooperative, No distress HEENT: Atraumatic Neck: Supple Respiratory: Normal resp effort Cardiovascular: Regular rate/rhythm, No Edema Gastrointestinal: Soft and benign, Non-distended Musculoskeletal: No clubbing, No contractures Integumentary: No rashes, No cyanosis Neurological: Normal speech Blood work reviewed in the chart. EXAM DESCRIPTION: RAD - Chest Single View - 12/24/2021 5:41 am CLINICAL HISTORY: f/u b/l opacities COMPARISON: Chest Single View dated 11/18/2021; Chest Single View dated 11/15/2021; Chest Single View dated 08/20/2021; Chest Single View dated 08/20/2021; Chest For Pe Angio dated 11/16/2021 FINDINGS: Lines: None. Lungs: No evidence of edema or pneumonia. Pleural: Pleural effusions, right greater than left which are similar to 11/18/2021. Cardiac: Cardiomegaly. Sternotomy. Bones: No acute fractures. IMPRESSION: Similar small bilateral effusions, right greater the left. This presumably underlying atelectasis. No other acute process identified. Conclusions/Impression: ESRD -HD TIW Chronic hypotension concerning autonomic dysfunction and/or adrenal insufficiency -Continue Midodrine for orthostatic hypotension -Continue Fludrocortisone EDITA -Nocturnal CPAP Diastolic CHF, A/C -HD with UF -Pulmonary following DM II with CKD & Polyneuropathy -RISS Anemia in CKD -Continue Retacrit CKD MBD Hypercalcemia -Continue Cholecalciferol -Continue Renvela BPH with LUTS -Continue Flomax Toxic metabolic encephalopathy of unclear etiology, waxing and waning -Neurology following Reglan IV X1 for nausea
[2022-01-02] MEDS ORDERED: METOCLOPRAMIDE 10 MG/2mL INJ IV ONE (11:00)
[2022-01-02] MEDS ORDERED: SUCRALFATE 1GM/10ML UCUP PO SCH (11:30)
--- NOTE | 2022-01-02 12:46 | P.DS ---
Admission Date: 12/23/21 Discharge Date: 01/02/22 Disposition: TRANSFER TO INPATIENT REHAB Discharge Condition: FAIR Reason for Admission: Orthostatic hypotension - Problems (1) Pulmonary edema Current Visit: Yes Status: Acute (2) End-stage renal disease on hemodialysis Current Visit: Yes Status: Acute (3) Acute respiratory failure with hypoxia Current Visit: Yes Status: Acute (4) Diabetes mellitus Current Visit: No Status: Acute Qualifiers: Diabetes mellitus type: type 2 Diabetes mellitus group home insulin use: with group home use Diabetes mellitus complication status: with kidney complications Diabetes mellitus complication detail: with chronic kidney di sease Chronic kidney disease stage: stage 4 (severe) Qualified Code(s): E11.22 - Type 2 diabetes mellitus with diabetic chronic kidney disease; N18.4 - Chronic kidney disease, stage 4 (severe); Z79.4 - paleologist (current) use of insulin (5) Sleep apnea treated with nocturnal BiPAP Onset Date: 10/04/18 Current Visit: No Status: Chronic Brief History of Present Illness: 66-year-old gentleman with a history of end-stage renal disease on hemodialysis on Thursday and Fridays, history of diabetes mellitus type 2 presented to [facility] emergency department with a complaint of shortness of breath and hypoxia. Patient reports progressive shortness of breath over the past couple of days, worse with activity. He stated he never missed dialysis, last dialysis was Thursday 3 days ago. He states that his oxygen saturation fell to the low 80s with standing. Also stated he felt very weak and could not tolerate taking a shower because of shortness of breath. Chest x-ray done at [facility] emergency department demonstrated trace bilateral pleural effusion and pulmonary vascular congestion. BNP markedly elevated, COVID-19 negative. Patient was hypoxic on room air. Patient was maintained on 2 L oxygen by nasal cannula. ED physician called for patient to be transferred here. Hospital Course: Problem List Acute hypoxemic respiratory failure secondary to pulmonary edema orthostatic hypotension with h/o hypertension Visual hallucinations ESRD - HD DM2, insulin dependent EDITA on nocturnal BIPAP h/o syncope CAD status post CABG 2019 BPH UTI Leukocytosis Patient admitted to the medical floor, seen by nephrology and he underwent hemodialysis. Later noted to have significant orthostatic hypotension. He is on fludrocortisone, midodrine for chronic hypotension orthostasis which were continued. He was treated with IV steroid for COPD/bronchitis. He was also seen by neurology, Parkinson's disease suspected and was therefore placed on Sinemet. Patient became confused and experienced hallucinations. Hallucinations suspected to be secondary to the Sinemet and steroid which were both discontinued. No more hallucination after discontinuation of this drug. He was also on amitriptyline which was discontinued to treat orthostasis effect. Patient was having insomnia and was therefore started on trazodone. Prescribed jasper hose, abd binder for orthostasis. He complains of urinary retention at one time. Bladder scan showed residual urine of 400 ml. His Flomax was held due to the orthostasis but was later resumed due to urinary dribbling and retention. UA with mild evidence of UTI. Associated leukocytosis. Urine cultures staph epidermidis which is likely a skin contaminant. He was on vancomycin and Levaquin transiently. Leukocytosis significantly improved. MRI: mild changes in frontal lobe - no change compared to prior MRI Neurology followed patient and requested an EEG which was unremarkable. Pulmonology also followed patient for the chronic respiratory failure Patient had sessions of PT. He has been accepted to [facility] for acute rehab and he is stable for discharge. Vital Signs/Physical Exam: Temp Pulse Resp BP Pulse Ox 98.3 F 114 H 20 163/75 H 99 01/02/22 12:00 01/02/22 12:00 01/02/22 12:00 01/02/22 12:00 01/02/22 12:00 General: Alert, In no apparent distress HEENT: Mucous membr. moist/pink Neck: JVD not distended Respiratory: Clear to auscultation bilaterally, Normal air movement Cardiovascular: No edema, Regular rate/rhythm, Normal S1 S2 Gastrointestinal: Soft and benign, Non-distended, No tenderness Musculoskeletal: No swelling Integumentary: No rashes Neurological: Other (No focal motor deficit) Laboratory Data at Discharge: WBC 16.6 K/uL (4.3-10.9) H D 01/02/22 05:59 Hgb 11.9 g/dL (13.6-17.9) L 01/02/22 05:59 Hct 36.4 % (39.6-49.0) L 01/02/22 05:59 Plt Count 315 K/uL (152-406) 01/02/22 05:59 Sodium 136 mmol/L (136-145) 01/02/22 05:59 Potassium 4.2 mmol/L (3.5-5.1) 01/02/22 05:59 BUN 40 mg/dL (7-18) H 01/02/22 05:59 Creatinine 5.61 mg/dL (0.55-1.3) H* D 01/02/22 05:59 Glucose 223 mg/dL (74-106) H 01/02/22 05:59 Uric Acid 3.0 mg/dL (3.5-7.2) L D 12/24/21 03:43 Phosphorus 5.9 mg/dL (2.5-4.9) H 12/29/21 05:39 Magnesium 2.3 mg/dL (1.8-2.4) 12/29/21 05:39 Total Bilirubin 0.4 mg/dL (0.2-1.0) 01/01/22 05:15 AST 13 U/L (15-37) L 01/01/22 05:15 ALT 12 U/L (12-78) 01/01/22 05:15 Alkaline Phosphatase 120 U/L (45-117) H 01/01/22 05:15 Home Medications: Albuterol Inhaler [Ventolin Inhaler*] 1 puff IN Q6H 12/23/21 Aspirin [Aspirin EC] 1 tab PO DAILY 12/23/21 Azelastine HCl 1 spray IN BID PRN 12/23/21 Budesonide/Formoterol Fumarate [Symbicort 160-4.5 Mcg Inhaler] 2 puff IN BID 12/23/21 Clopidogrel Bisulfate [Plavix*] 1 tab PO DAILY 12/23/21 Ergocalciferol (Vitamin D2) [Vitamin D2] 1 cap PO EVERY 7TH DAY 12/23/21 Furosemide 1 tab PO [facility] 12/23/21 Gabapentin 1 cap PO BEDTIME 12/23/21 Guaifenesin/Dextromethorphan [Coricidin Hbp Chest Pop-Cough] 1 cap PO Q4H 12/23/21 Magnesium Oxide 1 tab PO DAILY 12/23/21 Montelukast [Singulair*] 1 tab PO DAILY 12/23/21 Vit B Comp C/Folic Acid/Vit D3 [Dialyvite 800 Plus D Wafer] 1 tab PO DAILY 12/23/21 Cholecalciferol (Vitamin D3) [Vitamin D 5,000 IU Cap*] 1 cap PO DAILY 12/24/21 Docusate [Colace Cap*] 1 cap PO DAILY 12/24/21 Fludrocortisone Acetate 1 tab PO DAILY 12/24/21 Pantoprazole Sodium 1 tab PO DAILY 12/24/21 Tamsulosin HCl 1 tab PO BEDTIME 12/24/21 calcitrioL [Rocaltrol] 2 cap PO DAILY 12/24/21 Albuterol Neb [Proventil 0.083% Neb Soln] 2.5 mg NEB [id number] PRN amp 12/31/21 Docusate [Colace Cap*] 100 mg PO BID cap 12/31/21 Epoetin [Retacrit] 4,000 unit SQ M,W,F vial 12/31/21 Heparin [Heparin 1,000 units/mL *] 4,000 unit IV EVERY HD PRN vial 12/31/21 Insulin -Regular Human [Novolin -R*] See Protocol SQ ACHS ml 12/31/21 Insulin Lispro [Humalog*] 8 unit SQ BID ml 12/31/21 Midodrine HCl [Proamatine*] 10 mg PO BID tab 12/31/21 Nepro Shake [Nepro*] 237 ml PO TID can 12/31/21 Sevelamer Carbonate [Renvela*] 800 mg PO TIDWM tablet 12/31/21 Ubidecarenone [Coenzyme Q10*] 200 mg PO DAILY cap 12/31/21 Sucralfate [Carafate*] 10 ml PO ACHS [facility] 01/02/22 Trazodone [Desyrel*] 50 mg PO BEDTIME tablet 01/02/22 Diet: ADA Activity: Fall precautions Followup: Misael Charlton MD [Primary Care Provider] - (Within 2- 3 weeks) Time spent managing pt's care (in minutes): 38
[2022-01-02 16:49] VITALS: BP 125/88; TEMP 97.7
[2022-01-02] MEDS ORDERED: TRAZODONE 50 MG TABLET PO SCH (21:00)
[2022-01-03] MEDS ORDERED: Levofloxacin500mg IV 500 MG/100 ML BAG IV SCH (09:00)
== END 2022-01-02 17:19 | DRG 682 ==
LOC: 2ND 14:41
PROVIDERS: ADMIT Internal Medicine; ATTEND Internal Medicine
PROC: 5A1D70Z Performance of Urinary Filtration, Intermittent, Less than 6 Hours Per Day (ICD-10-PCS; principal; 2021-12-23)
PROC: 5A1D70Z Performance of Urinary Filtration, Intermittent, Less than 6 Hours Per Day (ICD-10-PCS; 2021-12-25)
PROC: 5A1D70Z Performance of Urinary Filtration, Intermittent, Less than 6 Hours Per Day (ICD-10-PCS; 2021-12-27)
PROC: 5A1D70Z Performance of Urinary Filtration, Intermittent, Less than 6 Hours Per Day (ICD-10-PCS; 2021-12-30)
PROC: 5A1D70Z Performance of Urinary Filtration, Intermittent, Less than 6 Hours Per Day (ICD-10-PCS; 2022-01-01)
DX: N18.6 End stage renal disease (principal); J96.01 Acute respiratory failure with hypoxia; I50.33 Acute on chronic diastolic (congestive) heart failure; G92.8 Other toxic encephalopathy; T83.518A Infection and inflammatory reaction due to other urinary catheter, initial encounter; J44.1 Chronic obstructive pulmonary disease with (acute) exacerbation; E11.22 Type 2 diabetes mellitus with diabetic chronic kidney disease; Z99.2 Dependence on renal dialysis; Z79.4 Long term (current) use of insulin; G25.81 Restless legs syndrome; I95.9 Hypotension, unspecified; E11.42 Type 2 diabetes mellitus with diabetic polyneuropathy; D63.1 Anemia in chronic kidney disease; N40.1 Benign prostatic hyperplasia with lower urinary tract symptoms; G47.33 Obstructive sleep apnea (adult) (pediatric); I25.10 Atherosclerotic heart disease of native coronary artery without angina pectoris; G20 Parkinson's disease; R44.1 Visual hallucinations; T42.8X5A Adverse effect of antiparkinsonism drugs and other central muscle-tone depressants, initial encounter; T38.0X5A Adverse effect of glucocorticoids and synthetic analogues, initial encounter; Y92.230 Patient room in hospital as the place of occurrence of the external cause; G47.00 Insomnia, unspecified; R33.9 Retention of urine, unspecified; Z77.090 Contact with and (suspected) exposure to asbestos; Z95.5 Presence of coronary angioplasty implant and graft; Z87.891 Personal history of nicotine dependence; Z95.1 Presence of aortocoronary bypass graft
CPT/HCPCS: 36415; 70450; 70551; 71045; 72125; 80048; 80053; 80069; 81003; 81015; 82024; 82533; 82607; 82746; 82805; 82947; 83735; 83880; 83970; 84100; 84425; 84443; 84550; 85025; 85027; 85652; 86021; 86038; 86140; 86141; 87077; 87086; 87088; 87186; 90935; 93306; 93880; 94760; 95816; 97110; 97112; 97161; 97530; J1644; J1815; J2270; J2405; J2765; J7605; J8540; Q5105